=== PATIENT | female | born 1955 | race Caucasian/White ===

== ENCOUNTER → 2017-05-21 13:55 | Outpatient (CLI) | payer MEDICARE, MEDICAID, SELFPAY ==
[2017-05-21 14:24] LABS: Absolute Lymphocyte Count 1.56 X10^3/ul (0.83-4.51); Absolute Neutrophil Count 2.5 X10^3/uL (2.0-7.7); Basophil# 0.03 X10^3/uL; Basophil% 0.6 % (0-1); Eosinophil# 0.47 X10^3/uL; Eosinophils% 9.6 % (0-5); Hematocrit 38.3 % (37-47); Hemoglobin 13.1 g/dl (12.0-15.0); Lymphocyte # 1.56 X10^3/ul (4.0); Lymphocyte % 31.8 % (19-41); Mean Corp Hgb Conc 34.2 g/gl (32-36); Mean Corpuscular Volume 87.8 fL (81-99); Mean Platelet Vol. 9.4 fl (6.2-12.0); Monocyte# 0.29 X10^3/uL; Monocyte% 5.9 % (0-10); Neutrophil # 2.53 X10^3/uL (2.7-7.7); Neutrophil % 51.7 % (47-70); Platelet Count 284 K/mm3 (150-450); RBC Distribution Width CV 13.2 % (11.6-14.6); RBC Distribution Width SD 41.6 fl (35.1-43.9); Red Blood Count 4.36 M/mm3 (4.2-5.4); White Blood Count 4.9 K/mm3 (4.4-11.0)
[2017-05-21 14:26] LABS: POSITIVE COUNT NO; POSITIVE DIFFERENTIAL NO; POSITIVE MORPHOLOGY NO
[2017-05-21 15:10] LABS: Vitamin D,25 Hydroxy 6.6 ng/mL (19.95-100.01)
[2017-05-21 15:11] LABS: AST(SGOT) 15 U/L (15-37); Alanine Aminotransfer ALT/SGPT 19 U/L (13-56); Albumin, Serum 3.4 g/dL (3.2-5.0); Alkaline Phosphatase 97 U/L (45-117); Anion Gap 7 (5-15); BUN 10 mg/dL (7-18); BUN/Creat Ratio 15.5 RATIO (10-20); Calcium,Total 8.6 mg/dL (8.5-10.1); Chloride 108 mmol/L (98-107); Creatinine, Serum 0.64 mg/dL (0.55-1.02); EST Glomerular Filtration Rate 99 mL/min (>60); Est Glom Filt Rate - Afr Amer 120 mL/min (>60); Globulin 3.3 g/dL (2.2-4.2); Glucose 96 mg/dL (74-106); Potassium 3.6 mmol/L (3.5-5.1); Protein, Total 6.7 g/dL (6.4-8.2); Sodium Level 140 mmol/L (136-145); Thyroid Stim Hormone (TSH) 0.59 uIU/mL (0.358-3.74)
== END ==
PROVIDERS: PCP Family Medicine Geriatric Medicine; Visit Provider Family Medicine Geriatric Medicine
DX: R53.83 Other fatigue (principal); E55.9 Vitamin D deficiency, unspecified
CPT/HCPCS: 36415; 80053; 82306; 84443; 85025

== ENCOUNTER → 2017-10-24 14:09 | Outpatient (CLI) | payer MEDICARE, MEDICAID, SELFPAY ==
--- NOTE | 2017-10-24 14:15 | RAD_ITS ---
STUDY: X-RAY CHEST REASON FOR EXAM: Female, 62 years old. CHEST PAIN TECHNIQUE: Frontal and lateral views of the chest. COMPARISON: September 07, 2016 FINDINGS: Chronic appearing increased interstitial lung markings. There is no demonstrated pleural abnormality. Normal heart size. Normal mediastinum and helder. Normal visualized pulmonary arteries. There is atherosclerotic calcification of the aortic arch with tortuosity. There are diffuse degenerative changes of the visualized thoracic spine. There is degenerative osteoarthritis of the bilateral shoulders. There is no demonstrated abnormality of the visualized soft tissue structures of the upper abdomen. RAD/Chest PA and Lateral IMPRESSION: There are no acute findings. Electronically Signed: Darshan Harrington MD at 18:50 EDT , Service support ,
== END ==
PROVIDERS: Family Provider Family Medicine Geriatric Medicine; PCP Family Medicine Geriatric Medicine; Visit Provider Nurse Practitioner Acute Care
DX: J44.9 Chronic obstructive pulmonary disease, unspecified (principal)
CPT/HCPCS: 71046

== ENCOUNTER → 2017-11-15 09:39 | Outpatient (CLI) | payer MEDICARE, MEDICAID, SELFPAY ==
--- NOTE | 2017-11-15 09:40 | BI_ITS ---
MAMMOGRAPHY - BILATERAL DIAGNOSTIC 3-D MILA SYNTHESIS REASON FOR EXAM: Female, 62 years old. Right breast palpable lump x 2 weeks. PERTINENT HISTORY: Non-contributory. TECHNIQUE: Digital examination. Mediolateral oblique (MLO) and craniocaudad (CC) views of both breasts were obtained. 2-D mammograms and 3-D Mila synthesis of the breast (s) were performed. CAD was performed. COMPARISON: 09/12/2016 mammogram. FINDINGS: The breast composition is composed of scattered fibroglandular density. Right axilla shows a faint triangular radiopaque marker for the area of clinical concern where patient states she feels a palpable lump for 2 weeks but no underlying associated mammographic lesion is identified. No new asymmetric density, dominant mass, dense spiculated masses, abnormal clustered microcalcifications, architectural distortion, skin thickening or nipple retraction identified. Coarse benign-appearing calcifications. No new abnormality identified with tomosynthesis. There has been no significant change since the prior study. BI/DIAG MAMM W/CAD, BILAT IMPRESSION: No mammographic signs of malignancy. Routine yearly mammograms recommended. ASSESSMENT CATEGORY: BIRADS Category 0: Incomplete. Need additional imaging evaluation as above. A letter regarding these results will be sent to the patient by the facility within 30 days. FOLLOW UP RECOMMENDATION: Incomplete mammogram, need additional imaging with right breast targeted ultrasound imaging near area of clinical concern as described. Negative results should not deter biopsy as a palpable lesion should be followed on clinical grounds and biopsy performed if clinically persistent for 3 months or increasing size. Approximately 10% of breast cancers are not detected by mammography. A normal mammogram should not delay biopsy of a clinically suspicious abnormality. Electronically Signed: Adama Cesar, at 11:52 EDT Tel , Service support ,
--- NOTE | 2017-11-15 09:42 | US_ITS ---
STUDY: ULTRASOUND BREAST - RIGHT REASON FOR EXAM: Female, 62 years old. Right breast palpable lump. Right diagnostic mammogram today. TECHNIQUE: Axial and longitudinal images of the RIGHT breast were performed with a high resolution ultrasound transducer. COMPARISON: No prior right breast ultrasound imaging available. Correlation same day 11/15/2017 and 09/12/2016 mammograms. FINDINGS: RIGHT Breast: No ultrasound abnormality is identified. No hypoechoic, heterogeneous or hyperechoic lesion identified. US/Breast Limited Unilateral IMPRESSION: Negative right breast targeted ultrasound study. ASSESSMENT CATEGORY: BIRADS Category 2: Benign. A letter regarding these results will be sent to the patient by the facility within 30 days. FOLLOW UP RECOMMENDATION: Yearly follow up mammogram recommended. (A) Negative results should not deter biopsy as a palpable lesion should be followed on clinical grounds and biopsy performed if clinically persistent for 3 months or increasing size. Approximately 10% of breast cancers are not detected by mammography. A normal mammogram should not delay biopsy of a clinically suspicious abnormality. Electronically Signed: Adama Guerrero, at 11:19 EDT Tel , Service support ,
== END ==
PROVIDERS: Family Provider Family Medicine Geriatric Medicine; PCP Family Medicine Geriatric Medicine; Visit Provider Family Medicine Geriatric Medicine
DX: R92.8 Other abnormal and inconclusive findings on diagnostic imaging of breast (principal); N63.31 Unspecified lump in axillary tail of the right breast
CPT/HCPCS: 76642; 77062; 77066; G0279

== ENCOUNTER → 2017-11-21 13:50 | Outpatient (CLI) | payer MEDICARE, MEDICAID, SELFPAY ==
[2017-11-21 16:25] LABS: AST(SGOT) 17 U/L (15-37); Absolute Lymphocyte Count 1.95 X10^3/ul (0.83-4.51); Absolute Neutrophil Count 3.6 X10^3/uL (2.0-7.7); Alanine Aminotransfer ALT/SGPT 19 U/L (13-56); Albumin, Serum 3.7 g/dL (3.2-5.0); Alkaline Phosphatase 100 U/L (45-117); Anion Gap 7 (5-15); BUN 8 mg/dL (7-18); Basophil# 0.04 X10^3/uL; Basophil% 0.6 % (0-1); Calcium,Total 9.1 mg/dL (8.5-10.1); Chloride 108 mmol/L (98-107); Creatinine, Serum 0.88 mg/dL (0.55-1.02); EST Glomerular Filtration Rate 69 mL/min (>60); Eosinophil# 0.54 X10^3/uL; Eosinophils% 8.4 % (0-5); Est Glom Filt Rate - Afr Amer 83 mL/min (>60); Globulin 3.6 g/dL (2.2-4.2); Glucose 98 mg/dL (74-106); Hematocrit 41.8 % (37-47); Hemoglobin 13.7 g/dl (12.0-15.0); Lymphocyte # 1.95 X10^3/ul (4.0); Lymphocyte % 30.2 % (19-41); Mean Corp Hgb Conc 32.8 g/gl (32-36); Mean Corpuscular Hgb 28.8 pg (27.0-32.0); Mean Platelet Vol. 10.1 fl (6.2-12.0); Monocyte# 0.37 X10^3/uL; Monocyte% 5.7 % (0-10); Neutrophil # 3.55 X10^3/uL (2.7-7.7); Neutrophil % 54.9 % (47-70); POSITIVE COUNT NO; POSITIVE DIFFERENTIAL NO; POSITIVE MORPHOLOGY NO; Platelet Count 280 K/mm3 (150-450); Potassium 4.1 mmol/L (3.5-5.1); Protein, Total 7.3 g/dL (6.4-8.2); RBC Distribution Width SD 44.9 fl (35.1-43.9); Red Blood Count 4.75 M/mm3 (4.2-5.4); Sodium Level 141 mmol/L (136-145); Thyroid Stim Hormone (TSH) 1.03 uIU/mL (0.358-3.74); White Blood Count 6.5 K/mm3 (4.4-11.0)
[2017-11-23 11:20] LABS: Hep C Antibodies <0.1 s/co ratio (0.0-0.9)
== END ==
PROVIDERS: Family Provider Family Medicine Geriatric Medicine; PCP Family Medicine Geriatric Medicine; Visit Provider Family Medicine Geriatric Medicine
DX: R53.83 Other fatigue (principal); Z13.89 Encounter for screening for other disorder
CPT/HCPCS: 36415; 80053; 84443; 85025; 86803

== ENCOUNTER → 2017-11-30 17:25 | Outpatient (CLI) | payer MEDICARE, MEDICAID, SELFPAY | PROVIDERS: Family Provider Family Medicine Geriatric Medicine; PCP Family Medicine Geriatric Medicine; Visit Provider Family Medicine Geriatric Medicine | DX: Z87.891 Personal history of nicotine dependence (principal) | CPT/HCPCS: G0297 ==

== ENCOUNTER → 2018-01-04 09:45 | Outpatient (CLI) | payer MEDICARE, MEDICAID, SELFPAY ==
--- NOTE | 2018-01-04 09:50 | EKG12_ITS ---
Test Reason : BACK PAIN Blood Pressure : / mmHG Vent. Rate : 061 BPM Atrial Rate : 061 BPM P-R Int : 132 ms QRS Dur : 076 ms QT Int : 412 ms P-R-T Axes : 072 071 061 degrees QTc Int : 414 ms Normal sinus rhythm Normal ECG Confirmed by MAC MENDEZ, MYNOR ([id number]), photo editor CONCHA ROMERO ([id number]) on 01/07/2018 2:56:25 PM Referred By: Jose Edwards Confirmed By:MYNOR WATTS MD
== END ==
PROVIDERS: Family Provider Family Medicine Geriatric Medicine; PCP Family Medicine Geriatric Medicine; Referring Provider Family Medicine Geriatric Medicine; Visit Provider Family Medicine Geriatric Medicine
DX: R07.9 Chest pain, unspecified (principal)
CPT/HCPCS: 93005

== ENCOUNTER → 2018-01-15 10:03 | Outpatient (CLI) | payer MEDICARE, MEDICAID, SELFPAY ==
--- NOTE | 2018-01-15 14:08 | PFT ---
INTRODUCTION: The patient is a 62-year-old female that presents for pulmonary function testing secondary to a diagnosis of COPD. Respiratory therapy reports good patient effort. Bronchodilators were used during testing. INTERPRETATION: Forced expiration spirometry demonstrates the presence of a severe large airways obstructive ventilatory defect. There was no significant response to aerosolized bronchodilators. Spirograms are of good quality and do not plateau indicating slow emptying of the lungs. Body plethysmography was performed and reveals an elevated RV to 147% of predicted, indicative of underlying air trapping. Diffusing capacity by single breath CO is severely reduced at 32% of predicted. When compared to previous pulmonary function studies completed in 2016, there has been a 21% reduction in FEV1, worsening air-trapping and a 26% reduction in DLCO. 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 There has been worsening in the patient's PFTs since they were last completed in 2016, as noted above.
== END ==
PROVIDERS: Family Provider Family Medicine Geriatric Medicine; PCP Family Medicine Geriatric Medicine; Visit Provider Nurse Practitioner Acute Care
DX: J44.9 Chronic obstructive pulmonary disease, unspecified (principal)
CPT/HCPCS: 94060; 94726; 94729

== ENCOUNTER → 2018-01-18 12:26 | Outpatient (CLI) | payer MEDICARE, MEDICAID, SELFPAY ==
[2018-01-18 12:30] VITALS: PULSE 66; PULSE 72; PULSE 74; PULSE 78; PULSE 79; O2SAT 96; O2SAT 97; O2SAT 98
--- NOTE | 2018-01-19 08:13 | PCM.PSN.6M ---
PSN 6 Minute Walk Test - 6 Minute Walk Test 6 Minute Walk Test: 6 Minute Walk Test PSN:6-Minute Walk Test Start: 01/18/18 12:54 Freq: Status: Active Protocol: RESP.6MINW Document 01/18/18 12:30 EW (Rec: 01/18/18 13:00 EW [id number]) 6 Minute Walk Test Date Performed 01/18/18 Time Performed 12:30 Height 5 ft 4 in Weight: 145 lb Weight in Pounds 145.[address]: Cathie De Jesus Assistive device used: None Pre-test Oxygen Delivery Method Room Air Pulse Ox (%) 98 Pulse Rate (60-100 beats/min) 66 Dyspnea Conor Scale (0-10) 1 Exertion Conor Scale (6-20) 6 1st minute Oxygen Delivery Method Room Air Pulse Ox (%) 97 Pulse Rate (60-100 beats/min) 74 2nd minute Oxygen Delivery Method Room Air Pulse Ox (%) 96 Pulse Rate (60-100 beats/min) 74 3rd minute Oxygen Delivery Method Room Air Pulse Ox (%) 98 Pulse Rate (60-100 beats/min) 72 4th minute Oxygen Delivery Method Room Air Pulse Ox (%) 98 Pulse Rate (60-100 beats/min) 72 5th minute Oxygen Delivery Method Room Air Pulse Ox (%) 97 Pulse Rate (60-100 beats/min) 79 6th minute Oxygen Delivery Method Room Air Pulse Ox (%) 97 Pulse Rate (60-100 beats/min) 78 Post-test Oxygen Delivery Method Room Air Pulse Ox (%) 98 Pulse Rate (60-100 beats/min) 72 Dyspnea Conor Scale (0-10) 3 Exertion Conor Scale (6-20) 12 Full Laps Walked 18 Partial Lap, Number of Tiles Walked 20 Total Distance Walked (ft) 1082 - Interpretation Interpretation: The patient ambulated 1082 feet over the course of 6 minutes beginning on room air without assistive devices or breaks. Pretesting oxygen saturation was noted to be 98% on room air. With ambulation, the sree oxygen saturation was 96%. There was no significant exertional oxygen desaturation. - Recommendations Recommendations: There is no indication for the use of supplemental oxygen at this time.
== END ==
PROVIDERS: Family Provider Family Medicine Geriatric Medicine; PCP Family Medicine Geriatric Medicine; Referring Provider Nurse Practitioner Acute Care; Visit Provider Nurse Practitioner Acute Care
DX: J44.9 Chronic obstructive pulmonary disease, unspecified (principal)
CPT/HCPCS: 94618

== ENCOUNTER → 2018-02-25 11:25 | Outpatient (CLI) | payer MEDICARE, MEDICAID, SELFPAY ==
[2018-02-25 11:27] VITALS: BMI 26.9
--- NOTE | 2018-02-25 11:28 | RAD_ITS ---
STUDY: X-RAY CHEST REASON FOR EXAM: Female, 63 years old. Cough. TECHNIQUE: PA and lateral views of the chest. COMPARISON: PA and lateral chest x-ray October 24, 2017. CT chest/thorax done December 04, 2017 was not available for comparison, but report for this study was reviewed. FINDINGS: On the lateral view, there is spiculated appearing 1.5-2 cm density overlapping the lung bases at the level of the T10-11 interspace that is not clearly seen on the frontal view. There is no demonstrated pleural abnormality. Normal size heart. Normal mediastinum and helder. Normal visualized pulmonary arteries. There is stable atherosclerotic calcification of the aortic arch. There is a stable mild dextroscoliosis of the thoracic spine. Normal visualized ribs, clavicles, and shoulders. There is no demonstrated abnormality of the visualized soft tissue structures of the upper abdomen. RAD/Chest PA and Lateral IMPRESSION: Question of spiculated nodule versus focal posterior basilar subsegmental atelectasis or scarring. Comparison reading with CT chest could be made when that study becomes available. Electronically Signed: Oniel Quevedo MD at 15:50 EST , Service support ,
== END ==
PROVIDERS: Family Provider Family Medicine Geriatric Medicine; PCP Family Medicine Geriatric Medicine; Referring Provider Physician Assistant; Visit Provider Physician Assistant
DX: R05 Cough (principal)
CPT/HCPCS: 71046

== ENCOUNTER → 2018-03-22 20:15 | Outpatient (CLI) | payer MEDICARE, MEDICAID, SELFPAY ==
[2018-03-22] MEDS: Zolpidem Tartrate 5 MG Tablet PO (22:05)
--- OUTSIDE RECORDS SUMMARY | 2018-06-26 07:47 | XMS RPT_ITS ---
:1955 Author Organization OHIP Support Name Relationship Address Phone SANDY STEFANI Unavailable [address] + [place] [address] D Unavailable Unavailable Unavailable GONZALEZ, MAC Unavailable [address] [place] [address] CREMER, STEFANI Unavailable [address] + [place] [address] D Unavailable Unavailable Unavailable GONZALEZ, MAC Unavailable [address] [place] [address] CREMER, STEFANI Unavailable [address] + [place] [address] D Unavailable Unavailable Unavailable GONZALEZ, MAC Unavailable [address] [place] [address] CREMER, STEFANI Unavailable [address] + [place] [address] D Unavailable Unavailable Unavailable GONZALEZ, MAC Unavailable [address] [place] [address] CREMER, STEFANI Unavailable [address] + [place] [address] D Unavailable Unavailable Unavailable GONZALEZ, MAC Unavailable [address] [place] [address] CREMER, STEFANI Unavailable [address] + [place] [address] D Unavailable Unavailable Unavailable GONZALEZ, MAC Unavailable [address] [place] [address] CREMER, STEFANI Unavailable [address] + [place] [address] D Unavailable Unavailable Unavailable GONZALEZ, MAC Unavailable [address] [place] [address] CREMER, STEFANI Unavailable [address] + [place] [address] D Unavailable Unavailable Unavailable GONZALEZ, MAC Unavailable [address] [place] [address] CREMER, STEFANI Unavailable [address] + [place] [address] D Unavailable Unavailable Unavailable GONZALEZ, MAC Unavailable [address] [place] [address] CREMER, STEFANI Unavailable [address] + [place] [address] D Unavailable Unavailable Unavailable GONZALEZ, MAC Unavailable [address] [place] [address] CREMER, STEFANI Unavailable [address] + [place] [address] D Unavailable Unavailable Unavailable GONZALEZ, MAC Unavailable [address] [place] [address] CREMER, STEFANI Unavailable [address] + [place] [address] D Unavailable Unavailable Unavailable GONZALEZ, MAC Unavailable [address] [place] [address] CREMER, STEFANI Unavailable [address] + [place] [address] D Unavailable Unavailable Unavailable GOZNALEZ, MAC Unavailable [address] [place] [address] CREMER, STEFANI Unavailable [address] + [place] [address] D Unavailable Unavailable Unavailable GONZALEZ, MAC Unavailable [address] [place] [address] CREMER, STEFANI Unavailable [address] + [place] [address] D Unavailable Unavailable Unavailable GONZALEZ, MAC Unavailable [address] [place] [address] CREMER, STEFANI Unavailable [address] + [place] [address] D Unavailable Unavailable Unavailable GONZALEZ, MAC Unavailable [address] [place] [address] CREMER, STEFANI Unavailable [address] + [place] [address] D Unavailable Unavailable Unavailable GONZALEZ, MAC Unavailable [address] [place] [address] CREMER, STEFANI Unavailable [address] + [place] [address] D Unavailable Unavailable Unavailable GONZALEZ, MAC Unavailable [address] [place] [address] CREMER, STEFANI Unavailable [address] + [place] [address] D Unavailable Unavailable Unavailable GONZALEZ, MAC Unavailable [address] [place] [address] CREMER, STEFANI Unavailable [address] + [place] [address] D Unavailable Unavailable Unavailable GONZALEZ, MAC Unavailable [address] [place] [address] Care Team Providers Name Role Phone Anthony Jalloh D.O. Attending Unavailable Cathie De Jesus Referring Unavailable Cathie De Jesus Attending Unavailable Jerry, Jose Chi Referring Unavailable Jerry, Jose Chi Attending Unavailable Kristen Marie Attending Unavailable Cathie De Jesus Attending Unavailable Jerry, Jose Chi Referring Unavailable Cathie De Jesus Attending Unavailable Jerry, Jose Chi Referring Unavailable Cathie De Jesus Attending Unavailable Cathie De Jesus Referring Unavailable Jerry, Jose Chi Primary Care Unavailable Jerry, Jose Chi Attending Unavailable Jerry, Jose Chi Primary Care Unavailable Jerry, Jose Chi Attending Unavailable Jerry, Jose Chi Primary Care Unavailable Jerry, Jose Chi Attending Unavailable Jerry, Jose Chi Referring Unavailable Jerry, Jose Chi Primary Care Unavailable Jerry, Jose Chi Attending Unavailable Jerry, Jose Chi Referring Unavailable Jerry, Jose Chi Primary Care Unavailable Cathie De Jesus Attending Unavailable Jerry, Jose Chi Primary Care Unavailable Cathie De Jesus Attending Unavailable Cathie De Jesus Referring Unavailable Jerry, Jose Chi Primary Care Unavailable Cathie De Jesus Attending Unavailable Jerry, Jose Chi Referring Unavailable Anthony Jalloh D.O. Attending Unavailable Cathie De Jesus Referring Unavailable Khai Watts Attending Unavailable Jerry, Jose Chi Referring Unavailable Brigitte Jimenez.OMax Attending Unavailable Jerry, Jose Chi Referring Unavailable Cathie De Jesus Attending Unavailable Jerry, Jose Chi Primary Care Unavailable Catracho Clifton Attending Unavailable Jerry, Jose Chi Referring Unavailable Catracho Clifton Attending Unavailable Catracho Clifton Referring Unavailable Jerry, Jose Chi Primary Care Unavailable PROBLEMS PROBLEMS DATE TYPE CONDITION / CODE ATTENDING STATUS SOURCE 04/10/2018 Unknown G47.33 - De Jesus, Active [place] Obstructive sleep [facility] apnea (adult) Hospital (pediatric) / Repository G47.33(ICD-10) 02/25/2018 Unknown R05 - Cough / Catracho Clifton Active [place] R05(ICD-10) [facility] Hospital Repository 02/04/2018 Unknown Z23 - Encounter for Anthony Jalloh, Active [place] immunization / D.O. [facility] Z23(ICD-10) Hospital Repository 03/22/2018 Unknown J44.9 - Chronic Anthony Jalloh, Active [place] obstructive D.O. [facility] pulmonary disease, Hospital unspecified / Repository J44.9(ICD-10) 01/18/2018 Unknown J47.9 - De Jesus, Active [place] Bronchiectasis, [facility] uncomplicated / Hospital J47.9(ICD-10) Repository 02/01/2018 Unknown R07.9 - Chest pain, Khai Watts Active [place] unspecified / Community R07.9(ICD-10) Hospital Repository 11/28/2017 Unknown R53.83 - Other Jerry, Jose Chi Active [place] fatigue / Community R53.83(ICD-10) Hospital Repository 11/28/2017 Unknown R92.8 - Other Jerry, Jose Chi Active [place] abnormal and Community inconclusive Hospital findings on Repository diagnostic imaging of breast / R92.8(ICD-10) 05/21/2017 Unknown E55.9 - Vitamin D Jerry, Jose Chi Active [place] deficiency, Community unspecified / Hospital E55.9(ICD-10) Repository PROCEDURES PROCEDURES No Procedure Records FoundRESULTS RESULTS PULMONARY VISIT REPORT Observed: 04/04/2018 Status: F Source: [place] 10:35 AM [facility] [place] [address] [place] [address] OFFICE VISIT Date of Service: 04/04/18 MR#: [id number] Acct: [id number] Name: TARSHA GONZALEZ Rep #: [id number] : 1955 Provider: Cathie De Jesus Age/Sex: 63/F Location: [facility] [place] Status: Signed Assessment AND Plan 1. Stage 2 moderate COPD by GOLD classification J44.9 Plan Improving. Complete antibiotic and prednisone as prescribed. No change in maintenance medications. No additional testing at this time. Keep previously scheduled routine follow-up. Begin pulmonary rehab. Contact the office with any new or worsening symptoms in the meantime. Orders Referrals: 2. PHILIP (obstructive sleep apnea) G47.33 Plan New. Agreeable to initiating Pap therapy. We will begin BiPAP 13/7 centimeters of water. She has been advised to contact the office with any difficulty acclimating to the device. Initially goal should be that she wear the device at least 4 hours nightly, ultimately she should wear the device any time spent sleeping. HPI f/u after acute: Chief Complaint: Shortness of breath HPI Comments Details: This patient presents to the office today to follow-up after recently being started on doxycycline and prednisone for an acute exacerbation of her COPD. She is ambulatory, currently on room air and accompanied today by her daughter. She reports that her symptoms are significantly improved but not 100% resolved. She states that her shortness of breath, wheezing and cough have improved. The cough is less frequent but she still is able to expectorate small amount of brown sputum. She is using a Mucinex, which has been helpful in alleviating her chest congestion and allowing her to expectorate sputum. She denies any fever, chills or body aches. She is not experience any hemoptysis. She denies any chest pain or palpitations. She is compliant with Brio daily, rinses her mouth out after each use. She denies any medication side effects such as sore throat or thrush. She is also compliant with improves daily. She has been using her albuterol rescue inhaler or albuterol nebulizer 4-6 times daily, she admits that prior to starting the doxycycline and prednisone she was using the albuterol every 2 hours. Reviewed recent titration study with the patient, she is agreeable to initiate Pap therapy. Intake Vital Signs04/04/18 Height 5 ft 3 in 04/04/18 Weight: 155 lb 04/04/18 Body Mass Index (BMI) 27.4 Intake Visit Reasons: f/u after acute Accompanied by: Daughter Allergies codeine Allergy (Verified 04/04/18 09:14) Itching morphine Allergy (Verified 04/04/18 09:14) Itching Medications Clopidogrel Bisulfate [Plavix] 75 mg PO DAILY 10/23/15 [History Confirmed 04/04/18] fluticasone 200 mcg-vilanterol 25 mcg/dose powder for inhalation 1 inh INHALATION QDAY 03/12/17 [History Confirmed 04/04/18] albuterol sulfate 2.5 mg/3 mL (0.083 %) solution for nebulization 2.5 mg INHALATION Q4H PRN #120 vial 10/24/17 [Rx Confirmed 04/04/18] albuterol sulfate HFA 90 mcg/actuation aerosol inhaler 1 - 2 puff INHALATION Q4H PRN PRN #1 inhaler 10/24/17 [Rx Confirmed 04/04/18] albuterol sulfate HFA 90 mcg/actuation aerosol inhaler 1 puff INHALATION Q6H PRN 02/25/18 [History Confirmed 04/04/18] atorvastatin 80 mg tablet PO 90 Days #90 tab 02/25/18 [History Confirmed 04/04/18] benzonatate 200 mg capsule 200 mg PO TID PRN #20 cap 02/25/18 [Rx Confirmed 04/04/18] guaifenesin ER 1,200 mg tablet, extended release 12 hr 1,200 mg PO Q12H 02/25/18 [History Confirmed 04/04/18] tiotropium bromide 18 mcg capsule with inhalation device INHALATION 30 Days #30 inh 02/25/18 [History Confirmed 04/04/18] venlafaxine 75 mg tablet PO 30 Days #60 tab 02/25/18 [History Confirmed 04/04/18] doxycycline hyclate 100 mg tablet 100 mg PO BID #20 tab 04/01/18 [Rx Confirmed 04/04/18] prednisone 10 mg tablet 10 mg PO QDAY #30 tab 04/01/18 [Rx Confirmed 04/04/18] PFSH Medical History Atherosclerotic heart disease of [place] coronary artery without angina pectoris (Chronic) COPD (chronic obstructive pulmonary disease) (Chronic) Cardiac murmur, unspecified (Chronic) Central sleep apnea (Chronic) Chest pain, unspecified (Chronic) TORREZ (dyspnea on exertion) (Chronic) Hyperlipidemia (Chronic) Nicotine dependence in remission (Chronic) PHILIP (obstructive sleep apnea) (Chronic) Obesity (Chronic) Peripheral vascular disease (Chronic) Urinary frequency (Chronic) UTI (urinary tract infection) (Resolved) Surgical History H/O: hysterectomy (Resolved) S/P surgical manipulation of ankle joint (Resolved) Family History Mother Cancer Lung CA Father Emphysema Chronic Bronchitis, in 80s. Sister Diabetes CAD (coronary artery disease) Sister Heart disease Brother Respiratory abnormalities Social History Smoking Status: Former smoker second hand exposure: No alcohol intake: never substance use type: does not use what type of physical activity do you participate in: none FEV1% FEV1%: 49 Review of Systems Const CONSTITUTIONAL: Positive fatigue; negative anorexia, body ache, chills, daytime sleepiness, fever(s), night sweats, oral thrush, stops breathing during sleep, weight loss, sleeping in chair, weight loss, weight gain, frequent colds, seasonal allergies, other, headache(s) or orthopnea EETM Ear Nose Throat Mouth: Positive hearing normal; negative hard of hearing, hoarseness, dry mouth in morning, change in vision, itchy eyes, eye pain, swallowing Difficulty, ear pain, nose bleed, headache(s), mouth pain, nasal congestion, nasal discharge, post nasal drip, sinus pain, sinus pressure, sore throat or other Cardio Cardiovascular: Negative chest pain, chest pain at rest, chest pain with activity, irregular heart rhythm, edema, shortness of breath when lying down, palpitations, murmur or other Resp Respiratory: Positive as per HPI, shortness of breath (improved) shortness of breath: Positive with activity and cough cough: Positive productive color: Positive thick and brown; negative pain with cough, wheezing, chest congestion, chest tightness, pain on inspiration, inhalers, increase use of rescue inhalers, snoring, apnea or other Gastro Gastrointestional: Positive change in appetite (increase); negative bloody stools, difficulty swallowing, reflux, hematemesis, melena stool, loose stool, constipation or other Genitourinary: Negative blood in urine, nocturia, pain with urination or other Musc Musculoskeletal: Negative body pain, back pain, neck pain or other Skin/Breast Skin/Breast: Negative dry skin, itching, rash, unusual bruising, breast lump or other Neuro Neurological: Negative restless legs, confusion, weakness or other Psych Psychocological: Negative abnormal sleep pattern, anxiety, thoughts of hurting self/others, hopelessness or other Lymph Lymphatic: Negative easy bleeding, easy bruising, swollen lymph nodes or other Exam Const Constitutional: Positive conversant, cooperative, in no acute respiratory distress, healthy appearing, well developed, well nourished and good hygiene Head Head: Positive normocephalic and atraumatic; negative cyanosis of lips/distal nose Eyes Eye: Positive clear conjunctiva; negative nystagmus or scleral abnormality Ears Ear: Positive hearing normal and external ears normal; negative hard of hearing Nose Nose: Positive external nose normal and no nasal discharge; negative epistaxis Mouth Mouth: Positive oral mucosae normal, no lesions, dentures and posterior oropharynx is adequate; negative post nasal drip, malodorous breath or oral thrush present Mallampati Score: I: Mallampati Score Neck Neck: Positive normal visual inspection, full ROM and trachea midline; negative lymphadenopathy, JVD or tender Chest Wall Chest: Positive symmetric chest movement and increased A/P diameter Resp lung sounds: Positive diminished, wheezes, wheeze present on forced exhalation, normal expiratory time and normal respiratory effort; negative rhonchi, rales or dullness to percussion Cardio Cardiac: Positive regular rate, regular rhythm, S1 normal and S2 normal; negative murmur GI GI: Positive normal to inspection; negative distended Genitourinary: Positive deferred Musc Musculoskeletal: Positive steady gait and ROM normal; negative kyphosis or scoliosis Skin Pulmonary Skin Exam: Positive intact; negative rash Pulses Pulse: Yes pulses normal x4 extremities Extremities Extremities: Yes capillary refill normal, No cyanosis, No edema, No clubbing Neuro Neurologic: Yes conversant, Yes no focal neuro deficits, Yes normal concentration, Yes understands questions, Yes cooperative, Yes normal cognition, Yes normal coordination, No tremor Lymph Lymphatic: No lymphadenopathy, No tenderness, No cervical adenopathy Psych Appearance: Positive grossly normal, eye contact and well kempt Mental Status: Positive mental status grossly normal Mood: Positive congruent mood Affect: Positive normal affect Coding Level of Care Code Off vis,est,level 4 Diagnoses Stage 2 moderate COPD by GOLD classification J44.9 PHILIP (obstructive sleep apnea) G47.33 04/04/18 1035 <Electronically signed by Cathie De Jesus [employer]-C> Date Cathie De Jesus NP-C Cosigner Signature: Date (if applicable) CC: Jose Edwards MD 6 MINUTE WALK TEST Observed: 02/26/2018 Status: F Source: [place] 12:37 PM [facility] [place] [facility] [address] [place] [id number] MR#: [id number] Acct: [id number] Name: TARSHA GONZALEZ Rep #: [id number] : 1955 62 From: Anthony Jalloh DO Referring Dr: Cathie De Jesus NP Date: Ordering Dr: Sex: F C Location: PSN PSN 6 Minute Walk Test - 6 Minute Walk Test 6 Minute Walk Test: 6 Minute Walk Test PSN:6-Minute Walk Test Start: 01/18/18 12:54 Freq: Status: Active Protocol: RESP.6MINW Document 01/18/18 12:30 EW (Rec: 01/18/18 13:00 EW [id number]) 6 Minute Walk Test Date Performed 01/18/18 Time Performed 12:30 Height 5 ft 4 in Weight: 145 lb Weight in Pounds 145.[address]: Cathie De Jesus Assistive device used: None Pre-test Oxygen Delivery Method Room Air Pulse Ox (%) 98 Pulse Rate (60-100 beats/min) 66 Dyspnea Conor Scale (0-10) 1 Exertion Conor Scale (6-20) 6 1st minute Oxygen Delivery Method Room Air Pulse Ox (%) 97 Pulse Rate (60-100 beats/min) 74 2nd minute Oxygen Delivery Method Room Air Pulse Ox (%) 96 Pulse Rate (60-100 beats/min) 74 3rd minute Oxygen Delivery Method Room Air Pulse Ox (%) 98 Pulse Rate (60-100 beats/min) 72 4th minute Oxygen Delivery Method Room Air Pulse Ox (%) 98 Pulse Rate (60-100 beats/min) 72 5th minute Oxygen Delivery Method Room Air Pulse Ox (%) 97 Pulse Rate (60-100 beats/min) 79 6th minute Oxygen Delivery Method Room Air Pulse Ox (%) 97 Pulse Rate (60-100 beats/min) 78 Post-test Oxygen Delivery Method Room Air Pulse Ox (%) 98 Pulse Rate (60-100 beats/min) 72 Dyspnea Conor Scale (0-10) 3 Exertion Conor Scale (6-20) 12 Full Laps Walked 18 Partial Lap, Number of Tiles Walked 20 Total Distance Walked (ft) 1082 - Interpretation Interpretation: The patient ambulated 1082 feet over the course of 6 minutes beginning on room air without assistive devices or breaks. Pretesting oxygen saturation was noted to be 98% on room air. With ambulation, the sree oxygen saturation was 96%. There was no significant exertional oxygen desaturation. - Recommendations Recommendations: There is no indication for the use of supplemental oxygen at this time. 02/26/18 1237 <Electronically signed by Anthony Jalloh DO> Date Anthony Jalloh DO CC: Date Dictated: 01/19/18812 Date Transcribed: 01/19/18812 Family Practitioner: DO Richmond Jimenez URGENT CARE VISIT Observed: 02/25/2018 Status: F Source: [place] REPORT 12:41 PM [facility] [address] [place] [address] [address] [place] [address] OFFICE VISIT Date of Service: 02/25/18 MR#: [id number] Acct: [id number] Name: TARSHA GONZALEZ Rep #: [id number] : 1955 Provider: Catracho POSADA Age/Sex: 63/F Location: [facility] [place] Status: Signed Intake Vital Signs02/25/18 Height 5 ft 3 in Intake Visit Reasons: CHEST CONGESTION Chief Complaint: Wheezing, cough Allergies codeine Allergy (Verified 02/25/18 11:27) Itching morphine Allergy (Verified 02/25/18 11:27) Itching Medications Clopidogrel Bisulfate [Plavix] 75 mg PO DAILY 10/23/15 [History Confirmed 02/25/18] fluticasone 200 mcg-vilanterol 25 mcg/dose powder for inhalation 1 inh INHALATION QDAY 03/12/17 [History Confirmed 02/25/18] albuterol sulfate 2.5 mg/3 mL (0.083 %) solution for nebulization 2.5 mg INHALATION Q4H PRN #120 vial 10/24/17 [Rx Confirmed 02/25/18] albuterol sulfate HFA 90 mcg/actuation aerosol inhaler 1 - 2 puff INHALATION Q4H PRN PRN #1 inhaler 10/24/17 [Rx Confirmed 02/25/18] albuterol sulfate HFA 90 mcg/actuation aerosol inhaler 1 puff INHALATION Q6H PRN 02/25/18 [History Confirmed 02/25/18] atorvastatin 80 mg tablet PO 90 Days #90 tab 02/25/18 [History Confirmed 02/25/18] benzonatate 200 mg capsule 200 mg PO TID PRN #20 cap 02/25/18 [Rx Confirmed 02/25/18] guaifenesin ER 1,200 mg tablet, extended release 12 hr 1,200 mg PO Q12H 02/25/18 [History Confirmed 02/25/18] prednisone 10 mg tablet 10 mg PO DAILY #30 tab 02/25/18 [Rx Confirmed 02/25/18] tiotropium bromide 18 mcg capsule with inhalation device INHALATION 30 Days #30 inh 02/25/18 [History Confirmed 02/25/18] venlafaxine 75 mg tablet PO 30 Days #60 tab 02/25/18 [History Confirmed 02/25/18] Nurse's Note: [facility] Medical History Atherosclerotic heart disease of [place] coronary artery without angina pectoris (Chronic) COPD (chronic obstructive pulmonary disease) (Chronic) Cardiac murmur, unspecified (Chronic) Central sleep apnea (Chronic) Chest pain, unspecified (Chronic) TORREZ (dyspnea on exertion) (Chronic) Hyperlipidemia (Chronic) Nicotine dependence in remission (Chronic) PHILIP (obstructive sleep apnea) (Chronic) Obesity (Chronic) Peripheral vascular disease (Chronic) Urinary frequency (Chronic) UTI (urinary tract infection) (Resolved) Surgical History H/O: hysterectomy (Resolved) S/P surgical manipulation of ankle joint (Resolved) Family History Mother Cancer Lung CA Father Emphysema Chronic Bronchitis, in 80s. Sister Diabetes CAD (coronary artery disease) Sister Heart disease Brother Respiratory abnormalities Social History Smoking Status: Former smoker second hand exposure: No alcohol intake: never substance use type: does not use what type of physical activity do you participate in: none HPI HPI Chief Complaint: Wheezing, cough Details: TARSHA GONZALEZ, is a 63 F who presents to the office today for evaluation due to recurring wheezing and cough. No complaints of fever, chills, sweats, rash, chest pains - though admits dyspnea on exertion which appears more prominent now compared to approximately 10-14 days ago. Patient and daughter both concerned due to after recently finishing azithromycin and prednisone taper that her symptoms slowly started to return. [id number] Mucinex has been tried to assist with symptoms, though patient notes this is only caused her to become more congested. Additionally, patient notes she has been using her albuterol metered-dose inhaler more frequently over the last week and a half noting it gives her minimal to no relief of symptoms; she notes her albuterol nebulizer at home gets her no relief. Daughter notes patient's pulse ox at home ranges from 88-90% on room air. Patient is currently followed by pulmonology for COPD, with findings on chest CT in November of this year which required a 6-month follow-up CT per radiologist recommendations. Daughter also notes she does have a history of PHILIP though has not been using her CPAP lately. ROS Const Constitutional: No other (ROS negative x10 other than as noted above) Exam Const General: cooperative, healthy appearing, no acute distress, comfortable Nutritional Appearance: average body habitus Orientation: alert, awake, oriented x3 HENMT Head: normal to inspection Ears: hearing grossly normal bilaterally, external ears normal, TM's normal bilaterally, EAC's normal Nose: external nose normal, nares normal (Though turbinates appear mildly edematous bilaterally), septum normal, no nasal discharge Face and sinus: normal facial exam, sinuses nontender, face symmetric Eyes General: appearance normal, both eyes and all related structures Neck Neck: normal visual inspection, full ROM, no lymphadenopathy, no meningeal signs, supple Neck mass: No Thyroid: thyroid normal Lymphatic: no lymphadenopathy noted Chest Chest palpation AND inspection: normal inspection of the chest Resp Effort AND Inspection: normal respiratory effort, able to speak in complete sentences, symmetric chest movement, no cough (No cough appreciated during today's exam) Auscultation: Bilateral: Diminished Lung Sounds, Diminished Base (With scant wheezes appreciated in BUL and LLL) Cardio Palpation: normal PMI Rate: regular rate Rhythm: regular rhythm Heart Sounds: S1 normal, S2 normal, no gallops, no murmurs, no rubs Pulses: radial pulses present GI Inspection: normal to inspection Palpation: soft, no hepatosplenomegaly Skin General: no rashes or lesions noted Neuro General: alert, awake, oriented x3, gait normal Cognition: normal cognition Speech: speech normal Gait: normal gait Motor: muscle tone normal throughout Sensory Exam: no sensory deficits noted Psych Appearance: grossly normal Mental Status: mental status grossly normal Mood: congruent mood Affect: normal affect Speech and Movement: speech and movement normal Attitude: cooperative Thought Process: normal Thought Content: normal Judgment: judgment good Assessment AND Plan Problems 1. Stage 2 moderate COPD by GOLD classification J44.9 Plan Reviewed today's chest x-ray with patient and daughter in office today, revealing no acute pathology per my review, pending radiologist interpretation at the time of this dictation. At patient's daughter's request, prednisone taper and benzonatate as prescribed today. Continue follow-up with pulmonology as previously arranged, PCP sooner should symptoms worsen or any other concerns develop. Patient and daughter state acknowledging understanding all the above. This note was generated with [employer] dictation software. It may contain incorrect words, spelling, and punctuation that were not noted in checking the note before signing. Orders Orders: Medications New: Coding Level of Care Code Off vis,est,level 4 Diagnoses Stage 2 moderate COPD by GOLD classification J44.9 Time Spent (min) 35 02/25/18 1241 <Electronically signed by Catracho POSADA> Date Catracho POSADA [facility] Signature: Date (if applicable) CC: CHEST PA AND LATERAL Observed: 02/25/2018 Status: F Source: [place] 11:28 AM [facility] [place] [facility] [address] [place] [address] Chest PA and Lateral MR#: [id number] Acct: [id number] Name: TARSHA GONZALEZ Rep #: [id number] : 1955 F 63 From: Jayden Quevedo MD PCP: Jerry MENDEZ,Jose Mccall Status: REG CLI Study: Chest PA and Lateral Date of Exam: 02/25/18 Exam# [id number] Ordering Dr: Catracho Clfiton STUDY: X-RAY CHEST REASON FOR EXAM: Female, 63 years old. Cough. TECHNIQUE: PA and lateral views of the chest. COMPARISON: PA and lateral chest x-ray October 24, 2017. CT chest/thorax done December 04, 2017 was not available for comparison, but report for this study was reviewed. FINDINGS: On the lateral view, there is spiculated appearing 1.5-2 cm density overlapping the lung bases at the level of the T10-11 interspace that is not clearly seen on the frontal view. There is no demonstrated pleural abnormality. Normal size heart. Normal mediastinum and helder. Normal visualized pulmonary arteries. There is stable atherosclerotic calcification of the aortic arch. There is a stable mild dextroscoliosis of the thoracic spine. Normal visualized ribs, clavicles, and shoulders. There is no demonstrated abnormality of the visualized soft tissue structures of the upper abdomen. RAD/Chest PA and Lateral IMPRESSION: Question of spiculated nodule versus focal posterior basilar subsegmental atelectasis or scarring. Comparison reading with CT chest could be made when that study becomes available. Electronically Signed: Oniel Quevedo MD at 15:50 EST , Service support , CC: Catracho POSADA; Jose Edwards MD Family Practitioner: Signed PULMONARY VISIT REPORT Observed: 02/04/2018 Status: F Source: [place] 1:29 PM [facility] [address] [place], [place] [address] OFFICE VISIT Date of Service: 02/04/18 MR#: [id number] Acct: [id number] Name: TARSHA GONZALEZ Rep #: [id number] : 1955 Provider: Anthnoy Jalloh D.O. Age/Sex: 63/F [facility] Status: Signed with Addenda ADDENDUM by Kristen Marie on 02/04/18 at 1329 OFFICE PROCEDURES Office Procedure Documentation entered by Kristen Marie 02/04/18 13:29: Office Meds Flucelvax Quad [id number] (PF) Performing Provider: Anthony Jalloh DO Administered by: Kristen Marie on 02/04/18 13:29 Dose Route Admin Location Lot Number Expiration Date NDC Ships Equipment Engineer 60 mcg IM L deltoid [id number] 09/07/18 19977-240-98 SEQIRUS 02/04/18 1329 <Electronically signed by Kristen Marie > Date Kristen Marie cc: Jose Edwards MD * Signed Assessment AND Plan 1. COPD (chronic obstructive pulmonary disease) J44.9 Plan The patient remained stable on her current inhaler regimen including Breo and Spiriva, which will be continued without change. Recommend repeating pulmonary function testing in the fall 2018. The patient will also be a candidate for repeat low- dose CT chest at that time as well. She will be provided with her annual influenza vaccination today. In addition, she will be referred to pulmonary rehabilitation. She has been advised to call this office with any worsening in her breathing quality and/or increased reliance on her short acting beta agonist. 2. PHILIP (obstructive sleep apnea) G47.33 Plan The patient plans to schedule a re-titration polysomnogram in the very near future. Once the results of testing are received, orders will be placed for her DME equipment. 3. Tobacco dependence in remission F17.201 Plan Ongoing tobacco cessation strongly encouraged. Plan Detail Other Orders Orders: Other Medications New: Flucelvax Quad 2248-4615 (PF) (flu vac qs 2018(4 yr60 mcg (0.5 mL) IM ONCE 1 mL 0RF NS Z23 up)CD(PF)) Follow Up 6 Months (DMB) HPI HPI Comments Details: The patient is a 63-year-old female who presents to the clinic today for a routine scheduled follow-up office visit. If you recall, I initially saw the patient in November 2016 when she was referred to me as a transfer of care from her previous pulmonary provider in [place]. The patient reported an extensive smoking history of 3 packs/day x 48 years. She quit smoking completely in 2012. She has known obstructive sleep apnea but was intolerant of the use of BiPAP and subsequently returned her equipment to her DME provider [facility]. She has since agreed to undergo a repeat titration study, which is yet to be scheduled. 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 There was notable worsening in the patient's PFTs when compared to December 2015 results. A 6-minute walk test was also completed at that time, which revealed no significant exertional oxygen desaturation. Low-dose CT chest of the lung completed in November 2017 did reveal 2 subcentimeter pulmonary nodules in the bases. Today, the patient reports overall stability in her breathing quality. She denies the presence of chest tightness, wheezing or cough. Her baseline exertional dyspnea is unchanged. She is currently utilizing her albuterol rescue inhaler on average every 2 weeks. She remains compliant with the use of Breo and Spiriva. She is interested in obtaining her annual influenza vaccination today. She denies fevers, chills or night sweats. She denies chest pain, dizziness or lightheadedness. 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083 %) solution for nebulization 2.5 mg INHALATION Q4H PRN #120 vial 10/24/17 [Rx Confirmed 02/04/18] albuterol sulfate HFA 90 mcg/actuation aerosol inhaler 1 - 2 puff INHALATION Q4H PRN PRN #1 inhaler 10/24/17 [Rx Confirmed 02/04/18] acapella #1 [id number] 01/18/18 [Rx Confirmed 02/04/18] guaifenesin ER 1,200 mg tablet, extended release 12 hr 1,200 mg PO Q12H #30 tab 01/18/18 [Rx Confirmed 02/04/18] nystatin 100,000 unit/mL oral suspension 5 ml MUCOUS MEMBRANE TID #250 ml 01/18/18 [Rx Confirmed 02/04/18] PFSH Medical History Atherosclerotic heart disease of [place] coronary artery without angina pectoris (Chronic) COPD (chronic obstructive pulmonary disease) (Chronic) Cardiac murmur, unspecified (Chronic) Central sleep apnea (Chronic) Chest pain, unspecified (Chronic) TORREZ (dyspnea on exertion) (Chronic) Hyperlipidemia (Chronic) Nicotine dependence in remission (Chronic) PHILIP (obstructive sleep apnea) (Chronic) Obesity (Chronic) Peripheral vascular disease (Chronic) Urinary frequency (Chronic) H/O: hysterectomy (Resolved) UTI (urinary tract infection) (Resolved) Surgical History S/P surgical manipulation of ankle joint (Resolved) Family History Mother Cancer Lung CA Father Emphysema Chronic Bronchitis, in 80s. Sister Diabetes CAD (coronary artery disease) Sister Heart disease Brother Respiratory abnormalities Social History Smoking Status: Former smoker second hand exposure: No alcohol intake: never substance use type: does not use what type of physical activity do you participate in: none Review of Systems Const CONSTITUTIONAL: Negative anorexia, body ache, chills, daytime sleepiness, fever(s), night sweats, oral thrush, stops breathing during sleep, weight loss, sleeping in chair, fatigue, weight loss, weight gain, frequent colds, seasonal allergies, other, headache(s) or orthopnea EETM Ear Nose Throat Mouth: Positive hearing normal; negative hard of hearing, hoarseness, dry mouth in morning, change in vision, itchy eyes, eye pain, swallowing Difficulty, ear pain, nose bleed, headache(s), mouth pain, nasal congestion, nasal discharge, post nasal drip, sinus pain, sinus pressure, sore throat or other Cardio Cardiovascular: Negative chest pain, chest pain at rest, chest pain with activity, irregular heart rhythm, edema, shortness of breath when lying down, palpitations, murmur or other Resp Respiratory: Positive as per HPI and apnea; negative shortness of breath, pain with cough, wheezing, chest congestion, cough, chest tightness, pain on inspiration, inhalers, increase use of rescue inhalers, snoring or other Gastro Gastrointestional: Negative bloody stools, change in appetite, difficulty swallowing, reflux, hematemesis, melena stool, loose stool, constipation or other Genitourinary: Negative blood in urine, nocturia, pain with urination or other Musc Musculoskeletal: Negative body pain, back pain, neck pain or other Skin/Breast Skin/Breast: Negative dry skin, itching, rash, unusual bruising, breast lump or other Neuro Neurological: Negative restless legs, confusion, weakness or other Psych Psychocological: Negative abnormal sleep pattern, anxiety, thoughts of hurting self/others, hopelessness or other Lymph Lymphatic: Negative easy bleeding, easy bruising, swollen lymph nodes or other Exam Const Constitutional: Positive conversant, cooperative, in no acute respiratory distress, well developed, well nourished and good hygiene Head Head: Positive normocephalic and atraumatic; negative cyanosis of lips/distal nose Eyes Eye: Positive clear conjunctiva; negative nystagmus or scleral abnormality Ears Ear: Positive hearing normal and external ears normal; negative hard of hearing Nose Nose: Positive external nose normal; negative epistaxis Mouth Mouth: Positive oral mucosae normal and posterior oropharynx is adequate; negative no lesions or post nasal drip Mallampati Score: II: Mallampati Score Neck Neck: Positive normal visual inspection and trachea midline; negative lymphadenopathy Chest Wall Chest: Positive symmetric chest movement Normal AP diameter. Resp lung sounds: Positive good air exchange; negative wheezes, rhonchi or rales Cardio Cardiac: Positive regular rate, regular rhythm, S1 normal and S2 normal; negative rub, gallop or murmur GI GI: Positive normal bowel sounds Soft without distention Genitourinary: Positive deferred Musc Musculoskeletal: Positive steady gait Skin Pulmonary Skin Exam: Positive intact; negative lesion, ulcers, dermal atrophy or rash Pulses Pulse: Yes Pedal pulses present: Extremities Extremities: No clubbing, No cyanosis, No edema Neuro Neurologic: Yes conversant, Yes no focal neuro deficits, Yes cooperative Lymph Lymphatic: No lymphadenopathy Psych Appearance: Positive grossly normal Mental Status: Positive mental status grossly normal Mood: Positive congruent mood Affect: Positive normal affect Coding Level of Care Code Off vis,est,level 3 Diagnoses COPD (chronic obstructive pulmonary disease) J44.9 PHILIP (obstructive sleep apnea) G47.33 Tobacco dependence in remission F17.201 02/04/18 1317 <Electronically signed by Anthony Jalloh DO> Date Anthony Jalloh DO Cosigner Signature: Date (if applicable) CC: Jose Edwards MD PULMONARY VISIT REPORT Observed: 01/18/2018 Status: F Source: [place] 3:45 PM [facility] [place] [address] [place] [address] OFFICE VISIT Date of Service: 01/18/18 MR#: [id number] Acct: [id number] Name: TARSHA GONZALEZ Rep #: [id number] : 1955 Provider: Cathie De Jesus Age/Sex: 62/F Location[facility] Status: Signed Assessment AND Plan 1. Bronchiectasis with acute lower respiratory infection J47.0 Plan New. Acapella device ordered. Keep previously scheduled follow-up. 2. PHILIP (obstructive sleep apnea) G47.33 Plan Patient realizes the impact of treating her sleep apnea on her respiratory failure and COPD. She is agreeable to a titration study and the reinstitution of Pap therapy. I will work closely with her to find a Pap pressure that is not only effective in managing her symptoms but that is tolerable which will lead to increased compliance. Titration study ordered, keep previously scheduled routine follow-up with Dr. Jalloh. Contact the office if any difficulties acclimating to Pap therapy. Orders Orders: 3. Stage 2 moderate COPD by GOLD classification J44.9 Plan Deteriorated. Showing some improvement on Z-Artem and prednisone. Continue prednisone taper. Continue maintenance medications. Keep previously scheduled follow-up. Influenza vaccine recommended when available. 4. Candidiasis of mouth B37.0 Plan New. Treating with nystatin 3 times daily. Keep previously scheduled follow-up. Personally reviewed inhaler technique to prevent recurrence of thrush. Plan Detail Other Orders Orders: Other Medications New: HPI not feeling well: Chief Complaint: Wheezing HPI Comments Details: This patient presents the office today to follow- up after recently being treated for an exacerbation of her COPD. She is ambulatory and currently on room air. She is accompanied today by her daughter who is a nurse. The patient reports that she began her Z-Artem on January 15, 2018 as well as a prednisone taper. She states that her symptoms have began to improve, the wheezing is not as intense in her shortness of breath is improving also. She continues to utilize her Ventolin rescue inhaler twice daily. She is compliant with Breo daily and in Honorio daily. She does report taking a drink of pop after using her Brio. She denies any medication side effects such as sore throat or thrush. She continues to have a cough that is productive of some sputum, she states that with the use of Mucinex she has been able to expectorate the sputum. It is thick, stringy and white. She denies any hemoptysis. She has not experienced any fever, chills or body aches. The patient does report that she has poor sleeping habits. She goes to bed late at night, wakes up several times nightly. She sleeps late into the day. She was previously diagnosed with obstructive sleep apnea but was unable to tolerate high pressures and secondary to low compliance rate the device was repossessed. Her daughter reports that her mother not only snores severely but the daughter has actually witnessed the mother having episodes of apnea. Intake Vital Signs01/18/18 Height 5 ft 3 in 01/18/18 Weight: 149 lb Intake Visit Reasons: not feeling well Accompanied by: Daughter Allergies codeine Allergy (Verified 01/18/18 08:39) Itching morphine Allergy (Verified 01/18/18 08:39) Itching Medications Clopidogrel Bisulfate [Plavix] 75 mg PO DAILY 10/23/15 [History Confirmed 01/18/18] fluticasone 200 mcg-vilanterol 25 mcg/dose powder for inhalation 1 inh INHALATION QDAY 03/12/17 [History Confirmed 01/18/18] phenazopyridine 100 mg tablet 100 mg PO TID 03/12/17 [History Confirmed 01/18/18] umeclidinium 62.5 mcg/actuation blister powder for inhalation 1 inh INHALATION QDAY #30 ea 08/06/17 [Rx Confirmed 01/18/18] albuterol sulfate 2.5 mg/3 mL (0.083 %) solution for nebulization 2.5 mg INHALATION Q4H PRN #120 vial 10/24/17 [Rx Confirmed 01/18/18] albuterol sulfate HFA 90 mcg/actuation aerosol inhaler 1 - 2 puff INHALATION Q4H PRN PRN #1 inhaler 10/24/17 [Rx Confirmed 01/18/18] azithromycin 250 mg tablet 250 mg PO QDAY #6 tab 01/15/18 [Rx Confirmed 01/18/18] prednisone 10 mg tablet 10 mg PO QDAY #30 tab 01/15/18 [Rx Confirmed 01/18/18] acapella #1 [id number] 01/18/18 [Rx Confirmed 01/18/18] guaifenesin ER 1,200 mg tablet, extended release 12 hr 1,200 mg PO Q12H #30 tab 01/18/18 [Rx Confirmed 01/18/18] nystatin 100,000 unit/mL oral suspension 5 ml MUCOUS MEMBRANE TID #250 ml 01/18/18 [Rx Confirmed 01/18/18] PFSH Medical History Atherosclerotic heart disease of [place] coronary artery without angina pectoris (Chronic) COPD (chronic obstructive pulmonary disease) (Chronic) Cardiac murmur, unspecified (Chronic) Central sleep apnea (Chronic) Chest pain, unspecified (Chronic) TORREZ (dyspnea on exertion) (Chronic) Hyperlipidemia (Chronic) Nicotine dependence in remission (Chronic) PHILIP (obstructive sleep apnea) (Chronic) Obesity (Chronic) Peripheral vascular disease (Chronic) Urinary frequency (Chronic) H/O: hysterectomy (Resolved) UTI (urinary tract infection) (Resolved) Surgical History S/P surgical manipulation of ankle joint (Resolved) Family History Mother Cancer Lung CA Father Emphysema Chronic Bronchitis, in 80s. Sister Diabetes CAD (coronary artery disease) Sister Heart disease Brother Respiratory abnormalities Social History Smoking Status: Former smoker second hand exposure: No alcohol intake: never substance use type: does not use what type of physical activity do you participate in: none Review of Systems Const CONSTITUTIONAL: Positive fatigue; negative anorexia, body ache, chills, daytime sleepiness, fever(s), night sweats, oral thrush, stops breathing during sleep, weight loss, sleeping in chair, weight loss, weight gain, frequent colds, seasonal allergies, other, headache(s) or orthopnea EETM Ear Nose Throat Mouth: Positive hearing normal; negative hard of hearing, hoarseness, dry mouth in morning, change in vision, itchy eyes, eye pain, swallowing Difficulty, ear pain, nose bleed, headache(s), mouth pain, nasal congestion, nasal discharge, post nasal drip, sinus pain, sinus pressure, sore throat or other Cardio Cardiovascular: Negative chest pain, chest pain at rest, chest pain with activity, irregular heart rhythm, edema, shortness of breath when lying down, palpitations, murmur or other Resp Respiratory: Positive as per HPI and wheezing; negative shortness of breath, pain with cough, chest congestion, cough, chest tightness, pain on inspiration, inhalers, increase use of rescue inhalers, snoring, apnea or other Gastro Gastrointestional: Positive loose stool (X2 days of starting the zpak); negative bloody stools, change in appetite, difficulty swallowing, reflux, hematemesis, melena stool, constipation or other Genitourinary: Negative blood in urine, nocturia, pain with urination or other Musc Musculoskeletal: Negative body pain, back pain, neck pain or other Skin/Breast Skin/Breast: Negative dry skin, itching, rash, unusual bruising, breast lump or other Neuro Neurological: Negative restless legs, confusion, weakness or other Psych Psychocological: Positive abnormal sleep pattern (due to prednisone); negative anxiety, thoughts of hurting self/others, hopelessness or other Lymph Lymphatic: Negative easy bleeding, easy bruising, swollen lymph nodes or other Exam Const Constitutional: Positive conversant, cooperative, in no acute respiratory distress, healthy appearing, well developed, well nourished and good hygiene Head Head: Positive normocephalic and atraumatic; negative cyanosis of lips/distal nose Eyes Eye: Positive clear conjunctiva; negative nystagmus or scleral abnormality Ears Ear: Positive hearing normal and external ears normal; negative hard of hearing Nose Nose: Positive external nose normal and no nasal discharge; negative epistaxis Mouth Mouth: Positive oral mucosae normal, no lesions, oral thrush present, dentures and posterior oropharynx is adequate; negative post nasal drip or malodorous breath Mallampati Score: II: Mallampati Score Neck Neck: Positive normal visual inspection, full ROM and trachea midline; negative lymphadenopathy, JVD or tender Chest Wall Chest: Positive normal inspection of the chest and symmetric chest movement; negative increased A/P diameter Resp lung sounds: Positive good air exchange, wheezes, normal expiratory time and normal respiratory effort; negative diminished, rhonchi, rales or dullness to percussion Cardio Cardiac: Positive regular rate, regular rhythm, S1 normal and S2 normal; negative murmur GI GI: Positive normal to inspection; negative distended Genitourinary: Positive deferred Musc Musculoskeletal: Positive steady gait and ROM normal; negative kyphosis or scoliosis Skin Pulmonary Skin Exam: Positive intact; negative rash Pulses Pulse: Yes pulses normal x4 extremities Extremities Extremities: Yes capillary refill normal, No clubbing, No cyanosis, No edema Neuro Neurologic: Yes conversant, Yes no focal neuro deficits, Yes normal concentration, Yes understands questions, Yes cooperative, Yes normal cognition, Yes normal coordination Lymph Lymphatic: No lymphadenopathy, No tenderness, No cervical adenopathy Psych Appearance: Positive grossly normal, eye contact and well kempt Mental Status: Positive mental status grossly normal Mood: Positive congruent mood Affect: Positive normal affect Office Procedures Inhaler Training Inhaler Training Procedure performed by: Cathie De Jesus Inhaler Training: Yes personally trained on inhaler use, expresses understanding and continue to monitor Coding Level of Care Code Off vis,est,level 4 Diagnoses Bronchiectasis with acute lower respiratory infection J47.0 Bronchiectasis type: with acute lower respiratory infection PHILIP (obstructive sleep apnea) G47.33 Stage 2 moderate COPD by GOLD classification J44.9 Candidiasis of mouth B37.0 01/18/18 1545 <Electronically signed by Cathie MAHERC> Date Cathie MAHERC Cosigner Signature: Date (if applicable) CC: Jose Edwards MD PULMONARY FUNCTION Observed: 01/15/2018 Status: F Source: [place] 2:10 PM [facility] [place] [facility]urology [address] [place] [address] MR#: [id number] Acct: [id number] Name: TARSHA GONZALEZ Rep #: [id number] : 1955 62 From: Anthony Jalloh DO Referring Dr: Cathie De Jesus NP Status: REG CLI Ordering Dr: Date: Location: [facility] Sex: F C INTRODUCTION: The patient is a 62-year-old female that presents for pulmonary function testing secondary to a diagnosis of COPD. Respiratory therapy reports good patient effort. Bronchodilators were used during testing. INTERPRETATION: Forced expiration spirometry demonstrates the presence of a severe large airways obstructive ventilatory defect. There was no significant response to aerosolized bronchodilators. Spirograms are of good quality and do not plateau indicating slow emptying of the lungs. Body plethysmography was performed and reveals an elevated RV to 147% of predicted, indicative of underlying air trapping. Diffusing capacity by single breath CO is severely reduced at 32% of predicted. When compared to previous pulmonary function studies completed in 2016, there has been a 21% reduction in FEV1, worsening air-trapping and a 26% reduction in DLCO. 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 There has been worsening in the patient's PFTs since they were last completed in 2016, as noted above. 01/15/18 1410 <Electronically signed by Anthony Jalloh DO> Date Anthony Jalloh DO CC: Cathie Edwards MD Date Dictated: 01/15/181407 Date Transcribed: 01/15/181407 Family Practitioner: VICTORIA Signed 12 LEAD ELECTROCARDIOGRAM Observed: 01/07/2018 Status: F Source: [place] 2:56 PM [facility] [place] [facility] [address] [place] [address] 12 Lead EKG 01/04/18 1003 MR#: [id number] Acct: [id number] Name: TARSHA GONZALEZ Rep #: [id number] : 1955 62 From: Khai Watts MD Attending Dr: Jose Edwards MD, Chi Status: REG CLI Ordering Dr: Jose Edwards MD Date: 01/04/18 Location: [facility] Sex: F C Admitted: Test Reason : BACK PAIN Blood Pressure : / mmHG Vent. Rate : 061 BPM Atrial Rate : 061 BPM P-R Int : 132 ms QRS Dur : 076 ms QT Int : 412 ms P-R-T Axes : 072 071 061 degrees QTc Int : 414 ms Normal sinus rhythm Normal ECG Confirmed by MAC MENDEZ, KHAI ([id number]), development editor CONCHA ROMERO ([id number]) on 01/07/2018 2:56:25 PM Referred By: Jose Edwards Confirmed By:KHAI WATTS MD 01/07/18 1456 Date Khai Watts MD CC: Jose Edwards MD Signed LOW DOSE CT LUNG Observed: 11/30/2017 Status: F Source: [place] SCREENING 5:30 PM [facility] [place] [facility] [address] [place] [address] Lung Screening MR#: [id number] Acct: [id number] Name: TARSHA GONZALEZ Rep #: [id number] : 1955 F 62 From: Adriel Cristina PCP: Jose Edwards MD, Chi Status: REG CLI Study: Low Dose CT Lung Screening Date of Exam: 11/30/17 Exam# [id number] Ordering Dr: Jose Edwards MD STUDY: LOW DOSE CT LUNG CANCER SCREENING REASON FOR EXAM: Female, 62 years old. Tobacco use. Smoker 2 packs per day for 30 years. Quit smoking 4 years ago. Recent 40 pound weight loss. RADIATION DOSAGE (If Supplied By Facility): CTDIvol = ( 2.01 ) mGy, DLP = ( 55.65 ) mGycm TECHNIQUE: No contrast was administered. Low dose technique was utilized (average mAS-38 and kVp 120). 1.25 mm axial source images with a slice interval of 1.25- mm were reconstructed in lung windows. Nodule measured using lung windows on PACS and/or independent workstation with automated measurement of minimum and maximum diameter. Nodule measurement reported as average diameter rounded to the nearest whole number. Growth is defined as an increase ins size of greater than 1.5 mm. COMPARISON: CT chest: 12/29/2015 NODULES: Nodule: Again noted a 4.2 mm pleural-based noncalcified nodule in the right lower lobe posteriorly(axial image 97/196) , previously was measured 3.9 mm. An elongated 7 mm pleural base nodule posteriorly in the left lower lobe( image 138/196) was too small to identify. No worrisome lung nodule, mass or infiltrates are seen in both lungs. Emphysema: Moderate emphysematous changes in both lungs again demonstrated with parenchymal cystic lucencies, small subpleural blebs and with hyperinflation of the lungs. Endobronchial lesion: None. Aorta: There is atherosclerotic calcification of the aortic arch and descending aorta. Coronary arteries: Extensive calcification of the left coronary arteries. Heart: Normal size heart. Pulmonary artery: Within normal limits. Mediastinal nodes: Again demonstrated up to 1.8 cm enlarged likely reactive mediastinal lymph nodes. Other chest and abdominal findings: Increased thoracic kyphosis. Osteopenia. CT/Low Dose CT Lung Screening IMPRESSION: Most probably benign pleural base small lower lung nodules, as described. Lung-RADS category 3 - Continue screening with LDCT in 6 months. Moderate pulmonary emphysema. Coronary artery atherosclerotic disease. IMPORTANT NOTES FOR USE: ACR Lung-RADS Version 1.0 Assessment Categories Release Date: August 04, 2013 Category: Coded 0-4 bases on nodule(s) with highest degree of suspicion. Negative screen is defined as categories 1 and 2; a positive screen is defined as categories 3 and 4. Category 3 and 4A nodules that are unchanged on interval CT should be coded as category 2, and individuals returned to screening in 12 months. Category 4X: Category 3 or 4 nodules with additional imaging findings that increase the suspicion of lung cancer, such as spiculation, GGN that doubles in size in 1 year, enlarged lymph notes, etc. Category Modifiers: S (significant finding unrelated to lung cancer) and C (prior history of treated lung cancer) may be added to the 0-4 Lung-RADS Electronically Signed: Jack Cristina MD at 10:35 EDT Tel , Service support , CC: Jose Edwards MD Family Practitioner: Signed CBC W/DIFF, AUTOMATED Collected: 11/21/2017 Status: F Source: [place] 1:56 PM [facility] TYPE CODE TESTS RESULT OUT OF RANGE REFERENCE UNITS LAB L100.1000 4.4-11.0 K/mm3 Normal WBC 6.5 LAB L100.1200 4.2-5.4 M/mm3 Normal RBC 4.75 LAB L100.1300 12.0-15.0 g/dl Normal HGB 13.7 LAB L100.1400 37-47 % Normal HCT 41.8 LAB L100.1500 81-99 fL Normal MCV 88.0 LAB L100.1600 27.0-32.0 pg Normal MCH 28.8 LAB L100.1700 32-36 g/gl Normal MCHC 32.8 LAB L100.1810 11.6-14.6 % Normal RDW CV 14.0 LAB L100.1820 35.1-43.9 fl High RDW SD 44.9 LAB L100.1900 150-450 K/mm3 Normal PLT 280 LAB L100.2000 6.2-12.0 fl Normal MPV 10.1 LAB L100.2100 47-70 % Normal NEUT% 54.9 LAB L100.2200 19-41 % Normal LY% 30.2 LAB L100.2300 0-10 % Normal MONO% 5.7 LAB L100.2400 0-5 % High EO% 8.4 LAB L100.2500 0-1 % Normal BASO% 0.6 LAB L100.2550 0.0-0.9 % Normal IM GRAN % 0.200 Result Comment: IG% - Immature Granulocytes (promyelocytes, myelocytes and metamyelocytes) > 1% indicates that a LEFT SHIFT is Present. LAB L100.2620 2.0-7.7 X10 3/uL Normal Absolute Neut 3.6 LAB L100.2720 0.83-4.51 X10 3/ul Normal Absolute Lymph 1.95 Performed By: #### L100.0100 #### [facility] [address] [place], [place], [id number] COMPREHENSIVE METABOLIC Collected: 11/21/2017 Status: F Source: [place] 1:56 PM [facility] TYPE CODE TESTS RESULT OUT OF RANGE REFERENCE UNITS LAB L501.0100 74-106 mg/dL Normal GLU 98 Result Comment: Please note revised GLUCOSE reference range effective 2017. LAB L501.1000 7-18 mg/dL Normal BUN 8 LAB L501.1100 0.55-1.02 mg/dL Normal CREAT,SERUM 0.88 Result Comment: The validity of the calculated GFR AND GFRAA in patients over 70 years has not been determined. Clinical correlation is essential. LAB L501.1110 >60 mL/min Normal EST GFR 69 Result Comment: Non- GFR Calc LAB L501.1115 >60 mL/min Normal EST GFR - AA 83 Result Comment: GFR Calc LAB L501.1300 10-20 RATIO Low BUN/CRE 9.0 LAB L501.1500 6.4-8.2 g/dL Normal T PROT 7.3 LAB L501.1800 3.2-5.0 g/dL Normal ALB 3.7 LAB L501.1950 2.2-4.2 g/dL Normal GLOB 3.6 LAB L501.2000 0.9-2.4 RATIO Normal A/G 1.0 LAB L501.2200 8.5-10.1 mg/dL Normal CA 9.1 LAB L501.4100 15-37 U/L Normal AST 17 LAB L501.4305 45-117 U/L Normal ALK P 100 LAB L501.4405 13-56 U/L Normal ALT 19 LAB L501.4600 0.20-1.00 mg/dL Normal T BILI 0.60 LAB L501.5300 136-145 mmol/L Normal NA 141 LAB L501.5600 3.5-5.1 mmol/L Normal K 4.1 LAB L501.5900 98-107 mmol/L High CL 108 LAB L501.6100 21.0-32.0 mmol/L Normal CO2 26.0 LAB L501.6200 5-15 Normal GAP 7 Performed By: #### L500.4050, L501.9520 #### [facility] [address] [place], [address] THYROID STIM HORMONE Collected: 11/21/2017 Status: F Source: [place] ([place]) 1:56 PM [facility] TYPE CODE TESTS RESULT OUT OF RANGE REFERENCE UNITS LAB L501.9520 0.358-3.74 uIU/mL Normal TSH 1.03 Performed By: #### L500.4050, L501.9520 #### [facility] [address] [facility]. [place], [place], [address] HEPATITIS C ANTIBODIES Collected: 11/21/2017 Status: F Source: [place] 1:56 PM [facility] TYPE CODE TESTS RESULT OUT OF RANGE REFERENCE UNITS LAB L3100.0650 0.0-0.9 s/co ratio Normal HEP C AB <0.1 Result Comment: Negative: < 0.8 Indeterminate: 0.8 - 0.9 Positive: > 0.9 The CDC recommends that a positive HCV antibody result be followed up with a HCV Nucleic Acid Amplification test (630569). Performed at: [facility] [id number] Rail Signal Mechanic: Ed Arce PhD, Phone: [phone] Performed By: #### L3100.0625 #### [facility] (refer to report for specific site) refer to report for address and phone number BREAST LIMITED Observed: 11/15/2017 Status: F Source: [place] UNILATER[place] 9:43 AM [facility] [place] [facility] [address] [place] [address] Breast Limited Unilateral MR#: [id number] Acct: [id number] Name: TARSHA GONZALEZ Rep #: [id number] : 1955 F 62 From: Adama Guerrero MD PCP: Jerry MENDEZ,Jose Mccall Status: REG CLI Study: Breast Limited Unilateral Date of Exam: 11/15/17 Exam# [id number] Ordering Dr: Jose Edwards MD STUDY: ULTRASOUND BREAST - RIGHT REASON FOR EXAM: Female, 62 years old. Right breast palpable lump. Right diagnostic mammogram today. TECHNIQUE: Axial and longitudinal images of the RIGHT breast were performed with a high resolution ultrasound transducer. COMPARISON: No prior right breast ultrasound imaging available. Correlation same day 11/15/2017 and 09/12/2016 mammograms. FINDINGS: RIGHT Breast: No ultrasound abnormality is identified. No hypoechoic, heterogeneous or hyperechoic lesion identified. US/Breast Limited Unilateral IMPRESSION: Negative right breast targeted ultrasound study. ASSESSMENT CATEGORY: BIRADS Category 2: Benign. A letter regarding these results will be sent to the patient by the facility within 30 days. FOLLOW UP RECOMMENDATION: Yearly follow up mammogram recommended. (A) Negative results should not deter biopsy as a palpable lesion should be followed on clinical grounds and biopsy performed if clinically persistent for 3 months or increasing size. Approximately 10% of breast cancers are not detected by mammography. A normal mammogram should not delay biopsy of a clinically suspicious abnormality. Electronically Signed: Adama Guerrero, at 11:19 EDT Tel , Service support , CC: Jose Edwards MD Family Practitioner: Signed RAMIREZ MAMM W/CAD, Observed: 11/15/2017 Status: F Source: [facility] 9:43 AM [facility] [place] [facility] [address] [place] [address] DIAG MAMM W/CAD, BILAT MR#: [id number] Acct: [id number] Name: TARSHA GONZALEZ Rep #: [id number] : 1955 F 62 From: Adama Guerrero MD PCP: Jose Edwards MD, Chi Status: REG CLI Study: DIAG MAMM W/CAD, BILAT Date of Exam: 11/15/17 Exam# [id number] Ordering Dr: Jose Edwards MD MAMMOGRAPHY - BILATERAL DIAGNOSTIC 3-D GERMAIN SYNTHESIS REASON FOR EXAM: Female, 62 years old. Right breast palpable lump x 2 weeks. PERTINENT HISTORY: Non-contributory. TECHNIQUE: Digital examination. Mediolateral oblique (MLO) and craniocaudad (CC) views of both breasts were obtained. 2- D mammograms and 3-D Germain synthesis of the breast (s) were performed. CAD was performed. COMPARISON: 09/12/2016 mammogram. FINDINGS: The breast composition is composed of scattered fibroglandular density. Right axilla shows a faint triangular radiopaque marker for the area of clinical concern where patient states she feels a palpable lump for 2 weeks but no underlying associated mammographic lesion is identified. No new asymmetric density, dominant mass, dense spiculated masses, abnormal clustered microcalcifications, architectural distortion, skin thickening or nipple retraction identified. Coarse benign-appearing calcifications. No new abnormality identified with tomosynthesis. There has been no significant change since the prior study. BI/DIAG MAMM W/CAD, BILAT IMPRESSION: No mammographic signs of malignancy. Routine yearly mammograms recommended. ASSESSMENT CATEGORY: BIRADS Category 0: Incomplete. Need additional imaging evaluation as above. A letter regarding these results will be sent to the patient by the facility within 30 days. FOLLOW UP RECOMMENDATION: Incomplete mammogram, need additional imaging with right breast targeted ultrasound imaging near area of clinical concern as described. Negative results should not deter biopsy as a palpable lesion should be followed on clinical grounds and biopsy performed if clinically persistent for 3 months or increasing size. Approximately 10% of breast cancers are not detected by mammography. A normal mammogram should not delay biopsy of a clinically suspicious abnormality. Electronically Signed: Adama Guerrero, at 11:52 EDT Tel , Service support , CC: Jose Edwards MD Family Practitioner: Signed PULMONARY VISIT REPORT Observed: 10/24/2017 Status: F Source: [place] 4:55 PM [facility] [place] [address] [address] [facility] [place] [address] OFFICE VISIT Date of Service: 10/24/17 MR#: [id number] Acct: [id number] Name: TARSHA GONZALEZ Rep #: [id number] : 1955 Provider: Cathie De Jesus Age/Sex: 62/F Location: [facility] [place] Status: Signed Assessment AND Plan Problems 1. Stage 2 moderate COPD by GOLD classification J44.9 Plan Deteriorated. Obtaining a chest x-ray today to rule out pneumonia or any other acute cardio/pulmonary process. Placing her on a prednisone taper. Not repeating antibiotics at this time. Keep previously scheduled routine follow-up with Dr. Jalloh on February 04, 2018, she has testing prior to that visit on January 15 and again on January 18. She has been encouraged to contact the office if she is not feeling some slight improvement early next week. She is also been encouraged to go to ED/urgent care if her symptoms worsen over the weekend. She is agreeable to this plan and conveys understanding. She will also be started on Inderal by nebulizer, she has responded nicely to the nebulizer medication delivery system. She reports that she was using her daughter's nebulizer recently, unfortunately her daughter needed the nebulizer back. She will be set up with her own nebulizer and the albuterol ampules needed. Orders Orders: Medications New: prednisone take 4 tabs for three days, then 3 tabs for three days, then 10 mg PO QDAY 2 tabs for three days, then 1 tab for 3 days Refilled: albuterol sulfate Use q4 hours and PRN 2.5 mg (3 mL) Inhalation Q4H PRN J44.9 for wheezing albuterol sulfate HFA 90 mcg/actuation 1 - 2 puffs Inhalation Q4H PRN PRN COPD JJ44.9 44.9 HPI Wants to discuss a nebulizer: Chief Complaint: Cough HPI Comments Details: This patient presents the office today for an acute visit with complaints of cough, wheezing and chest tightness. She recently completed a Z-Artem. Prior to the Z-Artem she had a cough that was productive of yellow sputum. She now has a cough that is productive of white sputum. She has pain in the right lung base with deep inspiration. Deep inspiration aggravates it, restful breathing alleviates it. She continues to have shortness of breath on exertion. She has occasional wheezing and chest tightness, she is using her albuterol rescue inhaler 1-2 times daily. The use of the albuterol rescue inhaler provides her with temporary relief of the wheezing and chest tightness. She is compliant with Breo daily. She rinses her mouth out after each use. She denies any medication side effects such as sore throat or thrush. She is also compliant with improved daily. She denies any hemoptysis, or palpitations. She is experiencing an increase in fatigue. She denies any fevers, is not sure if she has experienced any chills. She denies any body aches. See complete review of systems. 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 Required: No Accompanied by: Self Is patient in pain?: Yes Allergies codeine Allergy (Verified 10/24/17 13:37) Itching morphine Allergy (Verified 10/24/17 13:37) Itching Medications Clopidogrel Bisulfate [Plavix] 75 mg PO DAILY 10/23/15 [History Confirmed 10/24/17] fluticasone 200 mcg-vilanterol 25 mcg/dose powder for inhalation 1 inh INHALATION QDAY 03/12/17 [History Confirmed 10/24/17] nitrofurantoin monohydrate/macrocrystals 100 mg capsule 100 mg PO Q12H 03/12/17 [History Confirmed 10/24/17] phenazopyridine 100 mg tablet 100 mg PO TID 03/12/17 [History Confirmed 10/24/17] umeclidinium 62.5 mcg/actuation blister powder for inhalation 1 inh INHALATION QDAY #30 ea 08/06/17 [Rx Confirmed 10/24/17] azithromycin 250 mg tablet 250 mg PO QDAY #6 tab 09/07/17 [Rx Confirmed 10/24/17] albuterol sulfate 2.5 mg/3 mL (0.083 %) solution for nebulization 2.5 mg INHALATION Q4H PRN #120 vial 10/24/17 [Rx] albuterol sulfate HFA 90 mcg/actuation aerosol inhaler 1 - 2 puff INHALATION Q4H PRN PRN #1 inhaler 10/24/17 [Rx Confirmed 10/24/17] prednisone 10 mg tablet 10 mg PO QDAY #30 tab 10/24/17 [Rx Confirmed 10/24/17] PFSH Medical History Atherosclerotic heart disease of [place] coronary artery without angina pectoris (Chronic) COPD (chronic obstructive pulmonary disease) (Chronic) Cardiac murmur, unspecified (Chronic) Central sleep apnea (Chronic) Chest pain, unspecified (Chronic) TORREZ (dyspnea on exertion) (Chronic) Hyperlipidemia (Chronic) Nicotine dependence in remission (Chronic) PHILIP (obstructive sleep apnea) (Chronic) Obesity (Chronic) Peripheral vascular disease (Chronic) Urinary frequency (Chronic) UTI (urinary tract infection) (Resolved) Surgical History H/O: hysterectomy (Resolved) S/P surgical manipulation of ankle joint (Resolved) Family History Mother Cancer Lung CA Father Emphysema Chronic Bronchitis, in 80s. Sister Diabetes CAD (coronary artery disease) Sister Heart disease Brother Respiratory abnormalities Social History Smoking Status: Former smoker second hand exposure: No alcohol intake: never substance use type: does not use what type of physical activity do you participate in: none FEV1% FEV1%: 69 Review of Systems Const CONSTITUTIONAL: Positive fatigue; negative anorexia, body ache, chills, daytime sleepiness, fever(s), night sweats, oral thrush, stops breathing during sleep, weight loss, sleeping in chair, weight loss, weight gain, frequent colds, seasonal allergies, other, headache(s) or orthopnea EETM Ear Nose Throat Mouth: Positive hard of hearing; negative hoarseness, dry mouth in morning, change in vision, itchy eyes, eye pain, swallowing Difficulty, ear pain, nose bleed, headache(s), mouth pain, nasal congestion, nasal discharge, post nasal drip, sinus pain, sinus pressure, sore throat or other Cardio Cardiovascular: Negative chest pain, chest pain at rest, chest pain with activity, irregular heart rhythm, edema, shortness of breath when lying down, palpitations, murmur or other Resp Respiratory: Positive as per HPI, shortness of breath shortness of breath: Positive with activity, wheezing, cough cough: Positive productive color: Positive white, chest tightness and apnea; negative pain with cough, chest congestion, pain on inspiration, inhalers, increase use of rescue inhalers, snoring or other Gastro Gastrointestional: Negative bloody stools, change in appetite, difficulty swallowing, reflux, hematemesis, melena stool, loose stool, constipation or other Genitourinary: Negative blood in urine, nocturia, pain with urination or other Musc Musculoskeletal: Negative body pain, back pain, neck pain or other Skin/Breast Skin/Breast: Negative dry skin, itching, rash, unusual bruising, breast lump or other Neuro Neurological: Negative restless legs, confusion, weakness or other Psych Psychocological: Negative abnormal sleep pattern, anxiety, thoughts of hurting self/others, hopelessness or other Lymph Lymphatic: Negative easy bleeding, easy bruising, swollen lymph nodes or other Exam Const Constitutional: Positive conversant, cooperative, in no acute respiratory distress, healthy appearing, well developed, well nourished and good hygiene Head Head: Positive normocephalic and atraumatic; negative cyanosis of lips/distal nose Eyes Eye: Positive clear conjunctiva; negative nystagmus or scleral abnormality Ears Ear: Positive hard of hearing and external ears normal Nose Nose: Positive external nose normal and no nasal discharge; negative epistaxis Mouth Mouth: Positive oral mucosae normal, dentures, no lesions and posterior oropharynx is adequate; negative post nasal drip, malodorous breath or oral thrush present Mallampati Score: II: Mallampati Score Neck Neck: Positive normal visual inspection, full ROM and trachea midline; negative lymphadenopathy, JVD or tender Chest Wall Chest: Positive normal inspection of the chest and symmetric chest movement; negative increased A/P diameter Resp lung sounds: Positive diminished, wheezes wheezing: Positive left and lower, normal expiratory time and normal respiratory effort; negative rhonchi, rales, dullness to percussion or wheeze present on forced exhalation Cardio Cardiac: Positive regular rate, regular rhythm, S1 normal and S2 normal; negative murmur GI GI: Positive normal to inspection and normal bowel sounds; negative distended Genitourinary: Positive deferred Musc Musculoskeletal: Positive steady gait and ROM normal; negative kyphosis or scoliosis Skin Pulmonary Skin Exam: Positive intact; negative rash, lesion, ulcers or erythema Pulses Pulse: Yes pulses normal x4 extremities Extremities Extremities: Yes capillary refill normal, No clubbing, No cyanosis, No edema Neuro Neurologic: Yes conversant, Yes no focal neuro deficits, Yes normal concentration, Yes understands questions, Yes cooperative, Yes normal cognition, Yes normal coordination Lymph Lymphatic: No lymphadenopathy, No tenderness, No cervical adenopathy, No axillary adenopathy Psych Appearance: Positive grossly normal, eye contact and well kempt Mental Status: Positive mental status grossly normal Mood: Positive congruent mood Affect: Positive normal affect Coding Level of Care Code Off vis,est,level 3 Diagnoses Stage 2 moderate COPD by GOLD classification J44.9 10/24/17 1655 <Electronically signed by Cathie QUINTEROS> Date Cathie QUINTEROS Cosigner Signature: Date (if applicable) CC: Jose Edwards MD CHEST PA AND LATERAL Observed: 10/24/2017 Status: F Source: [place] 2:13 PM [facility] [place] [facility] [address] [place] [address] Chest PA and Lateral MR#: [id number] Acct: [id number] Name: TARSHA GONZALEZ Rep #: [id number] : 1955 F 62 From: Darshan Harrington MD PCP: Jose Edwards MD, Chi Status: REG CLI Study: Chest PA and Lateral Date of Exam: 10/24/17 Exam# [id number] Ordering Dr: Cathie De Jesus STUDY: X-RAY CHEST REASON FOR EXAM: Female, 62 years old. CHEST PAIN TECHNIQUE: Frontal and lateral views of the chest. COMPARISON: September 07, 2016 FINDINGS: Chronic appearing increased interstitial lung markings. There is no demonstrated pleural abnormality. Normal heart size. Normal mediastinum and helder. Normal visualized pulmonary arteries. There is atherosclerotic calcification of the aortic arch with tortuosity. There are diffuse degenerative changes of the visualized thoracic spine. There is degenerative osteoarthritis of the bilateral shoulders. There is no demonstrated abnormality of the visualized soft tissue structures of the upper abdomen. RAD/Chest PA and Lateral IMPRESSION: There are no acute findings. Electronically Signed: Darshan Harrington MD at 18:50 EDT , Service support , CC: Cathie De Jesus; Jose Edwards MD Family Practitioner: Signed PULMONARY VISIT REPORT Observed: 08/06/2017 Status: F Source: [place] 1:16 PM [facility] [address] [place] [address] OFFICE VISIT Date of Service: 08/06/17 MR#: [id number] Acct: [id number] Name: TARSHA GONZALEZ Rep #: [id number] : 1955 Provider: Cathie De Jesus Age/Sex: 62/F Location: [facility] [place] Status: Signed Assessment AND Plan 1. Stage 2 moderate COPD by GOLD classification J44.9 Status Chronic Plan Stable. She does not appear to be an exacerbation of her COPD today. I did change her from Spiriva to improve, hoping that this would be covered by her insurance plan. She was given 1 month supply and was started on the medication in the office today. Continue Breo. She will be due for a pulmonary function tests and a pulmonary stress test prior to a 6 month follow-up with Dr. Jalloh. She has been encouraged to contact the office if she develops any new or worsening symptoms in the meantime. Orders Orders: Referrals: 2. PHILIP (obstructive sleep apnea) G47.33 Plan Continues noncompliance. Not interested in reinitiating Pap therapy at this time. Follow-up with Dr. Jalloh in 6 months. 3. Tobacco abuse, in remission F17.201 Plan Continue to encourage smoking cessation. Plan Detail Other Medications New: Follow Up 6 Months (DMB) HPI 6 M FU: Chief Complaint: Shortness of breath on exertion HPI Comments Details: This Patient presents to the office today for routine follow-up on her moderate COPD. She is on room air, ambulatory and accompanied by her significant other. She has not been seen in the ED urgent care for any respiratory illnesses since her last office visit. She has not required antibiotics or prednisone for any breathing problems, denies having any episodes of bronchitis over the winter. She continues compliance with her Breo daily. She rinses her mouth out after each use. She denies any medication side effects such as sore throat or thrush. She continues compliance with Spiriva however, it has become very expensive and she admits that she is not using it daily as recommended in order to take the prescription last longer. She has not needed to use her rescue inhaler. She is using her albuterol nebulizer approximately 1-2 times per month. She continues to experience shortness of breath on exertion. She also admits to occasional wheezing. She denies any cough, sputum production or hemoptysis. She denies any chest tightness, chest congestion, chest pain or palpitations. She has not experienced any fever, chills or body aches. She continues noncompliance with her Pap therapy. She reports that she has very poor sleeping habits and often goes 24-36 hours without sleeping. Because of these long periods without sleep it reduced her compliance to less than 80% and the insurance company would no longer cover her Pap therapy. She reports that when the pressure support was lowered she tolerated it much more than she did once it was determined that she had central apnea and the pressure was turned up per her own words. Intake Vital Signs08/06/17 Height 5 ft 3.5 in Intake Visit Reasons: 6 M FU Is patient in pain?: No Allergies codeine Allergy (Verified 08/06/17 10:50) Itching morphine Allergy (Verified 08/06/17 10:50) Itching Medications Albuterol Aerosols [Ventolin Aerosols] 2.5 mg INHALATION Q4H PRN #25 vial 10/23/15 [Rx Confirmed 08/06/17] Albuterol Inhaler [Ventolin Hfa] 1 - 2 puff INHALATION Q4H PRN PRN #1 inhaler 10/23/15 [Rx Confirmed 08/06/17] Clopidogrel Bisulfate [Plavix] 75 mg PO DAILY 10/23/15 [History Confirmed 08/06/17] fluticasone 200 mcg-vilanterol 25 mcg/dose powder for inhalation 1 inh INHALATION QDAY 03/12/17 [History Confirmed 08/06/17] nitrofurantoin monohydrate/macrocrystals 100 mg capsule 100 mg PO Q12H 03/12/17 [History Confirmed 08/06/17] phenazopyridine 100 mg tablet 100 mg PO TID 03/12/17 [History Confirmed 08/06/17] mupirocin 2 % nasal ointment 1 applic INTRANASAL BID 10 Days #1 g 08/06/17 [Rx Confirmed 08/06/17] umeclidinium 62.5 mcg/actuation blister powder for inhalation 1 inh INHALATION QDAY #30 ea 08/06/17 [Rx Confirmed 08/06/17] FOR[facility]LY [facility] Medical History Atherosclerotic heart disease of [place] coronary artery without angina pectoris (Chronic) COPD (chronic obstructive pulmonary disease) (Chronic) Cardiac murmur, unspecified (Chronic) Central sleep apnea (Chronic) Chest pain, unspecified (Chronic) TORREZ (dyspnea on exertion) (Chronic) Hyperlipidemia (Chronic) Nicotine dependence in remission (Chronic) PHILIP (obstructive sleep apnea) (Chronic) Obesity (Chronic) Peripheral vascular disease (Chronic) Urinary frequency (Chronic) UTI (urinary tract infection) (Resolved) Surgical History H/O: hysterectomy (Resolved) S/P surgical manipulation of ankle joint (Resolved) Family History Mother Cancer Lung CA Father Emphysema Chronic Bronchitis, in 80s. Sister Diabetes CAD (coronary artery disease) Sister Heart disease Brother Respiratory abnormalities Social History Smoking Status: Former smoker second hand exposure: No alcohol intake: never substance use type: does not use what type of physical activity do you participate in: none Review of Systems Const CONSTITUTIONAL: Positive fatigue; negative anorexia, body ache, chills, daytime sleepiness, fever(s), night sweats, oral thrush, stops breathing during sleep, weight loss, sleeping in chair, weight loss, weight gain, frequent colds, seasonal allergies, other, headache(s) or orthopnea EETM Ear Nose Throat Mouth: Positive hearing normal; negative hard of hearing, hoarseness, dry mouth in morning, change in vision, itchy eyes, eye pain, swallowing Difficulty, ear pain, nose bleed, headache(s), mouth pain, nasal congestion, nasal discharge, post nasal drip, sinus pain, sinus pressure, sore throat or other Cardio Cardiovascular: Negative chest pain, chest pain at rest, chest pain with activity, irregular heart rhythm, edema, shortness of breath when lying down, palpitations, murmur or other Resp Respiratory: Positive as per HPI, shortness of breath shortness of breath: Positive with activity and wheezing; negative pain with cough, chest congestion, cough, chest tightness, pain on inspiration, inhalers, increase use of rescue inhalers, snoring, apnea or other Gastro Gastrointestional: Negative bloody stools, change in appetite, difficulty swallowing, reflux, hematemesis, melena stool, loose stool, constipation or other Genitourinary: Negative blood in urine, nocturia, pain with urination or other Musc Musculoskeletal: Negative body pain, back pain, neck pain or other Skin/Breast Skin/Breast: Negative dry skin, itching, rash, unusual bruising, breast lump or other Neuro Neurological: Negative restless legs, confusion, weakness or other Psych Psychocological: Negative abnormal sleep pattern, anxiety, thoughts of hurting self/others, hopelessness or other Lymph Lymphatic: Negative easy bleeding, easy bruising, swollen lymph nodes or other Exam Const Constitutional: Positive conversant, cooperative, in no acute respiratory distress, healthy appearing, well developed, well nourished and good hygiene Head Head: Positive normocephalic and atraumatic; negative cyanosis of lips/distal nose Eyes Eye: Positive clear conjunctiva and nystagmus; negative scleral abnormality Ears Ear: Positive hearing normal and external ears normal; negative hard of hearing Nose Nose: Positive no nasal discharge and external nose normal; negative epistaxis Mouth Mouth: Positive oral mucosae normal, no lesions, dentures and posterior oropharynx is adequate; negative post nasal drip, malodorous breath or oral thrush present Mallampati Score: II: Mallampati Score Neck Neck: Positive normal visual inspection, full ROM and trachea midline; negative lymphadenopathy, JVD or tender Chest Wall Chest: Positive normal inspection of the chest and symmetric chest movement; negative increased A/P diameter Resp lung sounds: Positive diminished, normal expiratory time and normal respiratory effort; negative wheezes, rhonchi, rales, dullness to percussion or wheeze present on forced exhalation Cardio Cardiac: Positive regular rate, regular rhythm, S1 normal and S2 normal; negative murmur GI GI: Positive normal to inspection and normal bowel sounds; negative distended Genitourinary: Positive deferred Musc Musculoskeletal: Positive steady gait and ROM normal; negative kyphosis or scoliosis Skin Pulmonary Skin Exam: Positive intact; negative rash, lesion, ulcers, erythema, scaly or dermal atrophy Pulses Pulse: Yes pulses normal x4 extremities Extremities Extremities: Yes capillary refill normal, No clubbing, No cyanosis, No edema, No stasis dermatitis Neuro Neurologic: Yes conversant Lymph Lymphatic: No lymphadenopathy, No tenderness, No cervical adenopathy, No axillary adenopathy Psych Appearance: Positive grossly normal, eye contact and well kempt Mental Status: Positive mental status grossly normal Mood: Positive congruent mood Affect: Positive normal affect Coding Level of Care Code Off vis,est,level 4 Diagnoses Stage 2 moderate COPD by GOLD classification J44.9 PHILIP (obstructive sleep apnea) G47.33 Tobacco abuse, in remission F17.201 08/06/17 1316 <Electronically signed by Cathie QUINTEROS> Date Cathie MAHERC Cosigner Signature: Date (if applicable) CC: Jose Edwards MD CBC W/DIFF, AUTOMATED Collected: 05/21/2017 Status: F Source[place] 1[place] [facility] [place] CODE TESTS RESULT OUT OF RANGE REFERENCE UNITS LAB L100.1000 4.4-11.0 K/mm3 Normal WBC 4.9 LAB L100.1200 4.2-5.4 M/mm3 Normal RBC 4.36 LAB L100.1300 12.0-15.0 g/dl Normal HGB 13.1 LAB L100.1400 37-47 % Normal HCT 38.3 LAB L100.1500 81-99 fL Normal MCV 87.8 LAB L100.1600 27.0-32.0 pg Normal MCH 30.0 LAB L100.1700 32-36 g/gl Normal MCHC 34.2 LAB L100.1810 11.6-14.6 % Normal RDW CV 13.2 LAB L100.1820 35.1-43.9 fl Normal RDW SD 41.6 LAB L100.1900 150-450 K/mm3 Normal PLT 284 LAB L100.2000 6.2-12.0 fl Normal MPV 9.4 LAB L100.2100 47-70 % Normal NEUT% 51.7 LAB L100.2200 19-41 % Normal LY% 31.8 LAB L100.2300 0-10 % Normal MONO% 5.9 LAB L100.2400 0-5 % High EO% 9.6 LAB L100.2500 0-1 % Normal BASO% 0.6 LAB L100.2550 0.0-0.9 % Normal IM GRAN % 0.400 Result Comment: IG% - Immature Granulocytes (promyelocytes, myelocytes and metamyelocytes) > 1% indicates that a LEFT SHIFT is Present. LAB L100.2620 2.0-7.7 X10 3/uL Normal Absolute Neut 2.5 LAB L100.2720 0.83-4.51 X10 3/ul Normal Absolute Lymph 1.56 Performed By: #### L100.0100 #### [facility] [address] [place], [address] VITAMIN D,25 HYDROXY Collected: 05/21/2017 Status: F Source: [place] 1[place] [facility] [place] CODE TESTS RESULT OUT OF REFERENCE UNITS RANGE LAB L506.1000 19.95-100.01 ng/mL Low Vitamin D 6.6 25-OH Result Comment: Vitamin D 25(OH) Status Range Deficiency <20 ng/mL (50nmol/L) Insuffciency 20 - 30 ng/mL (50 - 75 nmol/L) Sufficiency 30 - 100 ng/mL (75 - 250 nmol/L) Toxicity >100 ng/mL (>250 nmol/L) Performed By: #### L506.1000 #### [facility] [address] [facility] [place], [address] COMPREHENSIVE METABOLIC Collected: 05/21/2017 Status: F Source: [place] 1:[place] [facility] [place] CODE TESTS RESULT OUT OF RANGE REFERENCE UNITS LAB L501.0100 74-106 mg/dL Normal GLU 96 Result Comment: Please note revised GLUCOSE reference range effective 2017. LAB L501.1000 7-18 mg/dL Normal BUN 10 LAB L501.1100 0.55-1.02 mg/dL Normal CREAT,SERUM 0.64 Result Comment: The validity of the calculated GFR AND GFRAA in patients over 70 years has not been determined. Clinical correlation is essential. LAB L501.1110 >60 mL/min Normal EST GFR 99 Result Comment: Non- GFR Calc LAB L501.1115 >60 mL/min Normal EST GFR - AA 120 Result Comment: GFR Calc LAB L501.1300 10-20 RATIO Normal BUN/CRE 15.5 LAB L501.1500 6.4-8.2 g/dL T Normal PROT 6.7 LAB L501.1800 3.2-5.0 g/dL Normal ALB 3.4 LAB L501.1950 2.2-4.2 g/dL Normal GLOB 3.3 LAB L501.2000 0.9-2.4 RATIO Normal A/G 1.0 LAB L501.2200 8.5-10.1 mg/dL CA Normal 8.6 LAB L501.4100 15-37 U/L Normal AST 15 LAB L501.4305 45-117 U/L Normal ALK P 97 LAB L501.4405 13-56 U/L Normal ALT 19 Result Comment: Please note revised ALT reference range effective 2017. LAB L501.4600 0.20-1.00 mg/dL Normal T BILI 0.60 LAB L501.5300 136-145 mmol/L Normal NA 140 LAB L501.5600 3.5-5.1 mmol/L Normal K 3.6 LAB L501.5900 98-107 mmol/L High CL 108 LAB L501.6100 21.0-32.0 mmol/L Normal CO2 25.0 LAB L501.6200 5-15 Normal GAP 7 Performed By: #### L500.4050, L501.9520 #### [facility] [address] [place], [address] THYROID STIM HORMONE Collected: 05/21/2017 Status: F Source: [place] (TSH) 1:59 [facility] [place] REPOSITORY TYPE CODE TESTS RESULT OUT OF RANGE REFERENCE UNITS LAB L501.9520 0.358-3.74 uIU/mL Normal TSH 0.59 Performed By: #### L500.4050, L501.9520 #### [facility] [address] [place], [address] ALLERGIES ALLERGIES DATE TYPE / CODE NAME / CODE REACTION SEVERITY SOURCE 04/10/2018 Drug doxycycline/ severe headaches SV [facility] Allergy/4160 [id number](R and muscle spasms [place] 4559002(SNOMED XNORM) to the chest Repository CT) 04/04/2018 Drug morphine/F00 Itching Unknown [facility] Allergy/4160 [id number]([place] [address](SNOMED RM) Repository CT) 04/04/2018 Drug codeine/F006 Itching Unknown [facility] Allergy/4160 757200([place] 5813302(SNOMED M) Repository CT) ENCOUNTERS ENCOUNTERS ADMIT/DISCHARGE ACCOUNT ADMITTING ENCOUNTER LOCATION SOURCE NUMBER CLASS 04/04/2018/ [id number] Ambulatory [facility] [place] [facility] 03/22/2018 [id number] Ambulatory [place] 1 [facility] ing:SL Repository 02/25/2018 [id number] Ambulatory [place] 5 [facility] ing:HPRAD Repository 02/25/2018/ [id number] Ambulatory BMSBuilding:B [place] 8 0 [facility] Repository 02/04/2018/ [id number] Amb[facility]:B [place] [facility] 01/19/2018 [id number] Ambulatory BMSBuilding:W [place] 8 [facility] Repository 01/18/2018/ [id number] Ambulatory BMSBuilding:B [place] [facility] 01/18/2018 [id number] [facility] 0 [facility] ing[facility]N Repository 01/15/2018 [id number] Ambulatory [place] 8 [facility] ing[facility]PSN Repository 01/15/2018 [id number] Ambulatory BMSBuilding:W [place] 4 [facility] Repository 01/04/2018 [id number] Ambulatory [place] 3 [facility] ing:CVS Repository 01/04/2018 [id number] Ambulatory BMSBuilding:W [place] 7 [facility] Repository 11/30/2017 [id number] Ambulatory [place] 2 [facility] ing[facility]CT Repository 11/21/2017 [id number] [place]ulatory [place] 6 [facility] Hospital ing:POLAB3 Repository 11/15/2017 [id number] Ambulatory [place] 4 [facility] Hospital ing:OPUS Repository 10/24/2017 [id number] Ambulatory [place] 3 [facility] ing:RAD Repository 10/24/2017/ [id number] Ambulatory BMSBuilding:B [place] 8 3 [facility] Repository 08/06/2017/ [id number] Ambulatory BMSBuilding:B [place] 8 1 [facility] Repository 07/23/2017 [id number] Ambulatory B[place] 0 [facility] Repository 05/21/2017 [id number] Ambulatory [place] 8 [facility] Hospital ing:POLAB3 Repository PAYERS PAYERS ENCOUNTER GUARANTOR PAYER SUBSCRIBER SOURCE 04/04/2018 TARSHA A Primary TARSHA A [place] [id number] Insurance:MEDICARE ROBINSONDOB: [facility] PART A [facility] [id number] Number: Repository [address]Pkn: (520) [id number] [phone] () Date:2018-04-01 04/04/2018 Secondary [place] A [place] Insurance:MEDICAIDPol ROBINSONDOB: [facility] Number: [id number] Hospital [id number] Repository Date:2018-04-01 04/04/2018 Tertiary NOT GIVENUNK [place] Insurance:SELF PAY [facility] Number: Effective Repository Date:2018-04-03 03/22/2018 TARSHA A Primary TARSHA A [place] [id number] Insurance:MEDICARE ROBINSONDOB: [facility] [id number] Number: Repository [address]Vql: 330 [id number] [phone] (HP) Date:2018-01-21 03/22/2018 Secondary TARSHA A [place] Insurance:MEDICAIDPol ROBINSONDOB: [facility] icy Number: [id number] Hospital [id number] Repository Date:2018-01-21 03/22/2018 Tertiary NOT GIVENUNK [place] Insurance:SELF PAY [facility] Effective Repository Date:2018-01-21 02/25/2018 TARSHA A Primary TARSHA A [place] [id number] Insurance:MEDICARE ROBINSONDOB: [facility] [id number] [place] Number: Repository [address]Obh: 330 [id number] [phone] () Date:2018-02-25 02/25/2018 Secondary TARSHA A [place] Insurance:MEDICAIDPol ROBINSONDOB: [facility] icy Number: [id number] Hospital [id number] Repository Date:2018-02-25 02/25/2018 Tertiary NOT GIVENUNK [place] Insurance:SELF PAY [facility] Number: Effective Repository Date:2018-02-25 02/25/2018 TARSHA A Primary TARSHA A [place] [id number] Insurance:MEDICARE ROBINSONDOB: [facility] [id number] Number: Repository [address]Pfu: 330 [id number] [phone] (HP) Date:2018-02-25 02/25/2018 Secondary TARSHA A [place] Insurance:MEDICAIDPol ROBINSONDOB: [facility] icy Number: [id number] Hospital [id number] Repository Date:2018-02-25 02/25/2018 Tertiary NOT GIVENUNK [place] Insurance:SELF PAY [facility] Number: Effective Repository Date:2018-02-25 02/04/2018 TARSHA A Primary TARSHA A [place] [id number] Insurance:MEDICARE ROBINSONDOB: [facility] PART A [facility] [id number] Number: Repository [address]Cyz: 330 [id number] [phone] () Date:2017-08-06 02/04/2018 Secondary TARSHA A [place] Insurance:MEDICAIDPol ROBINSONDOB: [facility] icy Number: [id number] Hospital [id number] Repository Date:2017-08-06 02/04/2018 Tertiary NOT GIVENUNK [place] Insurance:SELF PAY [facility] Number: Effective Repository Date:2018-01-28 01/19/2018 TARSHA A Primary TARSHA A [place] [id number] Insurance:MEDICARE ROBINSONDOB: [facility] [id number] Number: Repository [address]Mze: 330 [id number] [phone] () Date:2017-08-06 01/19/2018 Secondary TARSHA A [place] Insurance:MEDICAIDPol ROBINSONDOB: [facility] ic Number: [id number] Hospital [id number] Repository Date:2017-08-06 01/19/2018 Tertiary NOT GIVENUNK [place] Insurance:SELF PAY [facility] Number: Effective Repository Date:2018-01-19 01/18/2018 TARSHA A Primary TARSHA A [place] [id number] Insurance:MEDICARE ROBINSONDOB: [facility] PART [facility] [id number] Number: Repository [address]Wth: 330 [id number] [phone] () Date:2018-01-15 01/18/2018 Secondary [place] A [place] Insurance:MEDICAIDPol ROBINSONDOB: [facility] icy Number: [id number] Hospital [id number] Repository Date:2018-01-15 01/18/2018 Tertiary NOT GIVENUNK [place] Insurance:SELF PAY [facility] Number: Effective Repository Date:2018-01-17 01/18/2018 TARSHA A Primary TARSHA A [place] [id number] Insurance:MEDICARE ROBINSONDOB: [facility] [id number] Number: Repository [address]Wvb: ([phone] [id number] [phone] () Date:2017-08-06 01/18/2018 Secondary TARSHA A [place] Insurance:MEDICAIDPol ROBINSONDOB: [facility] icy Number: [id number] Hospital [id number] Repository Date:2017-08-06 01/18/2018 Tertiary NOT GIVENUNK [place] Insurance:SELF PAY [facility] Number: Effective Repository Date:2017-08-06 01/15/2018 TARSHA A Primary TARSHA A [place] [id number] Insurance:MEDICARE ROBINSONDOB: [facility] [id number] Number: Repository [address]Nox: 330 [id number] [phone] () Date:2017-08-06 01/15/2018 Secondary T[place]SHA A [place] Insurance:MEDICAIDPol ROBINSONDOB: [facility] ic Number: [id number] Hospital [id number] Repository Date:2017-08-06 01/15/2018 Tertiary NOT GIVENUNK [place] Insurance:SELF PAY [facility] Number: Effective Repository Date:2017-08-06 01/15/2018 TARSHA A Primary TARSHA A [place] [id number] Insurance:MEDICARE ROBINSONDOB: [facility] [id number] Number: Repository [address]Slu: 330 [id number] [phone] () Date:2017-08-06 01/15/2018 Secondary TARSHA A [place] Insurance:MEDICAIDPol ROBINSONDOB: [facility] ic Number: [id number] Hospital [id number] Repository Date:2017-08-06 01/15/2018 Tertiary NOT GIVENUNK [place] Insurance:SELF PAY [facility] Number: Effective Repository Date:2018-01-15 01/04/2018 TARSHA A Primary TARSHA A [place] [id number] Insurance:MEDICARE ROBINSONDOB: [facility] [id number] Number: Repository [address]Vcp: 330 [id number] [phone] () Date:2018-01-04 01/04/2018 Secondary TARSHA A [place] Insurance:MEDICAIDPol ROBINSONDOB: [facility] icy Number: [id number] Hospital [id number] Repository Date:2018-01-04 01/04/2018 Tertiary NOT GIVENUNK [place] Insurance:SELF PAY [facility] Number: Effective Repository Date:2018-01-04 01/04/2018 TARSHA A Primary TARSHA A [place] [id number] Insurance:MEDICARE ROBINSONDOB: [facility] PART A [facility] [id number] Number: Repository [address]Oge: 330 [id number] [phone] () Date:2018-01-04 01/04/2018 Secondary TARSHA A [place] Insurance:MEDICAIDPol ROBINSONDOB: [facility] icy Number: [id number] Hospital [id number] Repository Date:2018-01-04 01/04/2018 Tertiary NOT GIVENUNK [place] Insurance:SELF PAY [facility] Number: Effective Repository Date:2018-01-04 11/30/2017 TARSHA A Primary TARSHA A [place] [id number] Insurance:MEDICARE ROBINSONDOB: [facility] PART A [facility] [id number] Number: Repository [address]Iux: 330 [id number] [phone] () Date:2017-11-21 11/30/2017 Secondary TARSHA A [place] Insurance:MEDICAIDPol ROBINSONDOB: [facility] ic Number: [id number] Hospital [id number] Repository Date:2017-11-21 11/30/2017 Tertiary NOT GIVENUNK [place] Insurance:SELF PAY [facility] Number: Effective Repository Date:2017-11-21 11/21/2017 TARSHA A Primary TARSHA A [place] [id number] Insurance:MEDICARE ROBINSONDOB: [facility] PART A [facility] [id number] Number: Repository [address]Ils: 330 [id number] [phone] (HP) Date:2017-11-21 11/21/2017 Secondary TARSHA A [place] Insurance:MEDICAIDPol ROBINSONDOB: [facility] icy Number: [id number] Hospital [id number] Repository Date:2017-11-21 11/21/2017 Tertiary NOT GIVENUNK [place] Insurance:SELF PAY [facility] Number: Effective Repository Date:2017-11-21 11/15/2017 TARSHA A Primary TARSHA A [place] [id number] Insurance:MEDICARE ROBINSONDOB: [facility] PART A [facility] [id number] Number: Repository [address]Dwp: 330 [id number] [phone] () Date:2017-11-12 11/15/2017 Secondary TARSHA A [place] Insurance:MEDICAIDPol ROBINSONDOB: [facility] Number: [id number] Hospital [id number] Repository Date:2017-11-12 11/15/2017 Tertiary NOT GIVENUNK [place] Insurance:SELF PAY [facility] Number: Effective Repository Date:2017-11-12 10/24/2017 TARSHA A Primary TARSHA A [place] [id number] Insurance:MEDICARE ROBINSONDOB: [facility] PART A [facility] [id number] Number: Repository [id number]: 330 [id number] [phone] () Date:2017-10-24 10/24/2017 Secondary TARSHA A [place] Insurance:MEDICAIDPol ROBINSONDOB: [facility] ic Number: [id number] Hospital [id number] Repository Date:2017-10-24 10/24/2017 Tertiary NOT GIVENUNK [place] Insurance:SELF PAY [facility] Number: Effective Repository Date:2017-10-24 10/24/2017 TARSHA Primary TARSHA [place] [id number] Insurance:MEDICARE ROBINSONDOB: [facility] PART A [facility] [id number] Number: Repository [id number]: 330 [id number] [phone] (HP) Date:2017-10-05 10/24/2017 Secondary TARSHA [place] Insurance:MEDICAIDPol ROBINSONDOB: [facility] icy Number: [id number] Hospital [id number] Repository Date:2017-10-05 10/24/2017 Tertiary NOT GIVENUNK [place] Insurance:SELF PAY [facility] Rep[facility] Date:2017-10-22 08/06/2017 TARSHA Primary TARSHA [place] [id number] Insurance:MEDICARE ROBINSONDOB: [facility] PART A [facility] [id number] Number: Repository [id number]: 330 [id number] [phone] (HP) Date:2017-07-10 08/06/2017 Secondary TARSHA [place] Insurance:MEDICAIDPol ROBINSONDOB: [facility] icy Number: [id number] Hospital [id number] Repository Date:2017-07-10 08/06/2017 Tertiary NOT GIVENUNK [place] Insurance:SELF PAY [facility] Number: Effective Repository Date:2017-07-24 07/23/2017 TARSHA Primary TARSHA [place] [id number] Insurance:MEDICARE ROBINSONDOB: [facility] A [facility] [id number] Number: Repository [id number]: 330 [id number] [phone] () Date:2017-07-23 07/23/2017 Secondary TARSHA [place] Insurance:MEDICAIDPol ROBINSONDOB: [facility] ic Number: [id number] Hospital [id number] Repository Date:2017-07-23 07/23/2017 Tertiary NOT GIVENUNK [place] Insurance:SELF PAY [facility] Number: Effective Repository Date:2017-07-23 05/21/2017 TARSHA Primary TARSHA [place] [id number] Insurance:MEDICARE ROBINSONDOB: [facility] PART A [facility] [id number] Number: Repository [id number]: 330 [id number] [phone] (HP) Date:2017-05-21 05/21/2017 Secondary TARSHA [place] Insurance:MEDICAIDPol ROBINSONDOB: [facility] icy Number: [id number] [facility] [id number] Repository Date:2017-05-21 05/21/2017 Tertiary NOT GIVENUNK [place] Insurance:SELF PAY [facility]: Effective Repository Date:2017-05-21
== END ==
PROVIDERS: Family Provider Family Medicine Geriatric Medicine; PCP Family Medicine Geriatric Medicine; Visit Provider Nurse Practitioner Acute Care
DX: G47.33 Obstructive sleep apnea (adult) (pediatric) (principal)
CPT/HCPCS: 95811

== ENCOUNTER 2018-05-12 10:17 | Emergency (ER) | payer MEDICARE, MEDICAID, SELFPAY ==
[2018-04-04 09:43] VITALS: BMI 27.4
[2018-05-12 10:18] VITALS: BP 114/76; PULSE 88; RESP 17; TEMP 36.6; O2SAT 93; BMI 26.5
--- NOTE | 2018-05-12 10:25 | CT_ITS ---
STUDY: CT CHEST WITHOUT CONTRAST REASON FOR EXAM: Female, 63 years old. COPD. Questionable mass. RADIATION DOSAGE (If Supplied By Facility): CTDIvol = ( 12.22 ) mGy, DLP = ( 452.60 ) mGycm TECHNIQUE: Transaxial imaging was performed without the administration of intravenous contrast material. Individualized dose optimization techniques were used for this CT. COMPARISON: 11/30/2017. FINDINGS: There is a stable 5 mm noncalcified pleural-based nodule in the superior segment of the right lower lobe unchanged since prior examination seen on image 52 series 4. Vague 2 mm nodule is again seen in the left upper lobe seen on image 46 series 4. There again is a 7 mm pleural-based nodule in the left lower lobe unchanged since the prior exam seen on image 70 series 4. There is minimal stranding in the left lower lobe on image 89 series 4 which could be due to mild atelectasis. Otherwise no new nodules are seen. There is no demonstrated pleural abnormality. Normal heart and pericardium. There again is an enlarged node in the aortopulmonic window measuring about 1.9 cm unchanged since the prior examination. Normal hilar regions. Few nodes are seen in the right axilla again unchanged. Normal unenhanced pulmonary arteries. There is atherosclerotic calcification of the aortic arch with tortuosity and elongation of the aortic arch and descending thoracic aorta. There is a striations of the thoracic vertebra probably due to osteopenia. There is no demonstrated abnormality of the visualized upper abdomen. CT/Chest without Contrast IMPRESSION: 1. Few small pleural-based nodule is as described above unchanged since the prior examination. 2. No new infiltrate is seen. 3. Stable enlarged mediastinal nodes. Electronically Signed: Cristofer Sharif MD at 12:04 EST Tel , Service support ,
--- NOTE | 2018-05-12 10:26 | EKG12_ITS ---
Test Reason : COUGH Blood Pressure : / mmHG Vent. Rate : 078 BPM Atrial Rate : 078 BPM P-R Int : 128 ms QRS Dur : 078 ms QT Int : 370 ms P-R-T Axes : 073 074 064 degrees QTc Int : 421 ms Normal sinus rhythm Normal ECG Confirmed by NICOLA MENDEZ, DIANE ([id number]), associate editor CONCHA ROMERO ([id number]) on 05/15/2018 1:39:59 PM Referred By: SILVIA Confirmed By:DIANE PETERSEN MD
--- NOTE | 2018-05-12 10:28 | ED.VISSUMM ---
- ER Visit Summary Date of Service: 05/12/18 Chief Complaint: Shortness of breath History of Present Illness: The patient is a 63 F who presents with shortness of breath for about a week and a half. She has COPD and did not want to have antibiotics that she did not get it checked out. She had a fever which seems to have subsided but her breathing difficulties continued. She has no chest pain. She has no calf pain or lower leg edema. She has no travel history. She has a cough is productive but white. This is changed from her usual cough which is dry. Physical Examination: Not appear in acute distress. She is speaking in full sentences Moist mucous membranes, no obvious facial deformity No C-spine tenderness supple neck. Regular rate and rhythm without any obvious murmurs Diffuse wheezing throughout, prolonged expirations. Abdomen soft and nontender no guarding or rebound Moves all extremities without any difficulty or pain. Skin does not show any obvious rashes or lesions, no trauma. Alert oriented ?3 with no gross focal deficit Emergency Department Course and Treatment: Her previous x-ray showed a suspicious lesion, therefore I did a CT of the chest, this shows chronic nodules without any change. Patient is reassured. I reevaluate her after nebulizers and she significantly improved. I will discharge her after I am [place] and I will give her antibiotics for home. She meets criteria since she has COPD and her sputum has changed. Disposition: Discharge stable condition Impression: COPD exacerbation This note was generated with Pager[employer] dictation software. It may contain incorrect words, spelling, and punctuation that were not noted in review of the chart prior to signing ED Disposition - Plan for ED Patient: Disposition: Home or Assisted Living Instructions: ED COPD Flare Prescriptions: Azithromycin 250 mg PO DAILY #6 tab Referrals: Jose Edwards Chi, MD [Primary Care Provider] - 3-5 Days
[2018-05-12 10:40] VITALS: PULSE 116; RESP 22
[2018-05-12] MEDS: Albuterol 2.5 MG/3 ML VIAL.NEB. INHALATION ×3 (10:40)
[2018-05-12] MEDS: Ipratropium/Albuterol Sulfate 3 ML AMPUL.NEB INHALATION (10:40)
[2018-05-12] MEDS: MethylPREDNISolone 125 MG/2 ML Vial IV (10:45)
[2018-05-12 10:48] LABS: Absolute Lymphocyte Count 2.02 X10^3/ul (0.83-4.51); Absolute Neutrophil Count 4.4 X10^3/uL (2.0-7.7); Basophil# 0.07 X10^3/uL; Basophil% 0.8 % (0-1); Eosinophil# 1.43 X10^3/uL; Eosinophils% 16.6 % (0-5); Hematocrit 41.7 % (37-47); Hemoglobin 13.7 g/dl (12.0-15.0); Lymphocyte # 2.02 X10^3/ul (4.0); Lymphocyte % 23.5 % (19-41); Mean Corp Hgb Conc 32.9 g/gl (32-36); Mean Corpuscular Hgb 29.7 pg (27.0-32.0); Mean Corpuscular Volume 90.5 fL (81-99); Mean Platelet Vol. 8.7 fl (6.2-12.0); Monocyte# 0.62 X10^3/uL; Monocyte% 7.2 % (0-10); Neutrophil # 4.42 X10^3/uL (2.7-7.7); Neutrophil % 51.4 % (47-70); Platelet Count 329 K/mm3 (150-450); RBC Distribution Width CV 12.8 % (11.6-14.6); RBC Distribution Width SD 42.2 fl (35.1-43.9); Red Blood Count 4.61 M/mm3 (4.2-5.4); White Blood Count 8.6 K/mm3 (4.4-11.0)
[2018-05-12 10:49] LABS: POSITIVE COUNT NO; POSITIVE DIFFERENTIAL NO; POSITIVE MORPHOLOGY NO
[2018-05-12 11:04] LABS: Anion Gap 9 (5-15); BUN 10 mg/dL (7-18); BUN/Creat Ratio 12.8 RATIO (10-20); Calcium,Total 9.5 mg/dL (8.5-10.1); Chloride 107 mmol/L (98-107); Creatinine, Serum 0.78 mg/dL (0.55-1.02); EST Glomerular Filtration Rate 79 mL/min (>60); Est Glom Filt Rate - Afr Amer 95 mL/min (>60); Estimated Creatinine Clearance 61.07 ml/min; Glucose 98 mg/dL (74-106); Potassium 4.2 mmol/L (3.5-5.1); Sodium Level 141 mmol/L (136-145)
[2018-05-12 11:30] VITALS: BP 129/75; PULSE 104; PULSE 106; RESP 16; RESP 21; TEMP 36.6; O2SAT 91; O2SAT 93
[2018-05-12 12:00] VITALS: PULSE 132; RESP 20; TEMP 37.2; O2SAT 93
[2018-05-12] MEDS: Triamcinolone Acetonide 40 MG/ML Vial IM (12:37)
[2018-05-12 12:42] VITALS: BP 131/77; PULSE 115; RESP 18; O2SAT 95
[2018-05-12 12:57] VITALS: BP 131/77; PULSE 130; RESP 16; O2SAT 93
== END 2018-05-12 13:03 | disposition home or self-care (01) ==
PROVIDERS: Emergency Provider Emergency Medicine; Family Provider Family Medicine Geriatric Medicine; PCP Family Medicine Geriatric Medicine
DX: J44.1 Chronic obstructive pulmonary disease with (acute) exacerbation (principal); I44.7 Left bundle-branch block, unspecified; Z79.02 Long term (current) use of antithrombotics/antiplatelets; Z79.899 Other long term (current) drug therapy; Z87.891 Personal history of nicotine dependence
CPT/HCPCS: 71250; 80048; 84484; 85025; 93005; 94640; 96372; 96374; 99284; A4216

== ENCOUNTER → 2018-05-21 09:25 | Outpatient (CLI) | payer MEDICARE, MEDICAID, SELFPAY ==
[2018-05-12 10:18] VITALS: BMI 26.5
--- NOTE | 2018-05-21 11:28 | PR.HP_ITS ---
History of Present Illness Arrival date:: 05/21/18 Arrival time:: 09:00 Date of Referral:: 04/04/18 Date of Evaluation: 05/21/18 - patient was rescheduled by pt request Referring Physician: Dr. Anthony Jalloh Primary Diagnosis: STAE II COPD MODERATE, PHILIP mMRC Breathless Scale: When is the patient short of breath? Y/N Grade: Description of Breathlessness: 0 I only get breathless with strenuous exercise. 1 I get short of breath when hurrying on level ground or walking up a slight hill. 2 On level ground, I walk slower than people of the same age because of breathless, or have to stop for breath when walking at my own pace. 3 I stop for breath after walking 100 yards or after a few minutes on level ground. 4 I am too breathless to leave the house or I am breathless when dressing. Home Medications: Home Medications Clopidogrel Bisulfate [Plavix] 75 mg PO DAILY 10/23/15 fluticasone 200 mcg-vilanterol 25 mcg/dose powder for inhalation 1 inh IN HALATION QDAY 03/12/17 albuterol sulfate 2.5 mg/3 mL (0.083 %) solution for nebulization 2.5 mg INHALATION Q4H PRN #120 vial 10/24/17 albuterol sulfate HFA 90 mcg/actuation aerosol inhaler 1 - 2 puff INHALATION Q4H PRN PRN #1 inhaler 10/24/17 atorvastatin 80 mg tablet 80 mg PO QHS 90 Days #90 tab 02/25/18 tiotropium bromide 18 mcg capsule with inhalation device 1 inh INHALATION DAILY 30 Days #30 inh 02/25/18 venlafaxine 75 mg tablet 75 mg PO DAILY 30 Days #60 tab 02/25/18 Azithromycin 250 mg PO DAILY #6 tab 05/12/18 Doxycycline [Vibramycin] 100 mg PO BID 05/21/18 Allergies/Adverse Reactions: Allergies codeine Allergy (Verified 05/12/18 10:19) Itching morphine Allergy (Verified 05/12/18 10:19) Itching doxycycline Adverse Reaction (Severe, Verified 05/12/18 10:19) severe headaches and muscle spasms to the chest - Secretions Cough:: Yes AM: Yes A.T.C.: Yes Hx of Sleep Apnea: Yes Do you snore loudly (louder than talking or can be heard through closed doors)?: Yes - BiPAP at HS. History of Hypertension (for STOP score): Yes Medical Utilization Do you use a peak flow meter at home?: No Do you use a spacer device with your inhalers?: No Number of hospital visits in the last year?: 0 Number of emergency room visits in the last year?: 2 - Urgent Care x 2 Do you see your physician on a regular schedule?: Yes How often?: PCP 6 months; 3-6 months Advanced Directives - Advanced Directives Power of Automatic Dry Starch Operator: No - Daughter Precious has paperwork to get filed. 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 Sister Diabetes CAD (coronary artery disease) Sister Heart disease Brother Respiratory abnormalities - Current/ Previous Services Pulmonary Rehab:: No Social History - Smoking History Smoking Status: Former smoker Years Smokin Packs Smoked per Day: 2 Hx Smoking Cessation Date: 2013 Hx Tobacco Use: Yes Hx Smoking Exposure: Yes - Alcohol Use Alcohol Usage: No - Substance Abuse Hx Substance Use: No - Occupation Occupation (List type of work in comments):: Retired - Hobbies, Recreation, Social Activities Hobbies: Other - computer games Recreational Activities: I am able to engage in all my recreational activities Functioning ADL/IADL - Current Ability Current Ability: Independent Self-Care (e.g.,grooming, dressing, & bathing), Independent Ambulation, Independent Transfer, Independent Household tasks (e.g., light meal prep, laundry, shopping) - Pt Functioning Prior to Problem Prior Functioning: Self-Care (e.g.,grooming, dressing, & bathing): Independent, Ambulation: Independent, Transfer: Independent, Household tasks (e.g., light meal prep, laundry, shopping): Independent Social Environment - Status Marital Status: - Current Living Arrangements Living Environment:: Spouse - Children How many children do you have?: 3 Do any of your children live nearby?: Yes - Safety Do you feel safe in your surroundings?: Yes - Assistance Do you need any assistance at home?: none Review of Systems Review of Systems: Right click = Denies ([place]). Left click = Reports ([place]) Respiratory: Reports: SOB upon Exertion, Wheezing, Appetite, Normal, Dizziness/Lightheadedness, Fatigue, Sleep, Normal - very irregular but normal, trying to get used to BIPAP.. Denies: Cough, Hemoptysis, SOB at Rest Is Patient Pain Free?: Yes Pain Location: none Risk Factor Assessment - Chief Complaint Chief Complaint: Patient is a patient of Dr. Anthony Jalloh who presents to pulmonary rehab today following recent PULMONARY visit. She has stage 2 COPD Moderate by GOLD standard. - Vital Signs Temperature: 98.7 F Pulse Rate: 63 Pulse Rhythm: Regular Respiratory Rate: 16 Pulse Ox: 95 Blood Pressure: 109/64 Nailbeds:: pink - Diabetes Nutrition Referral for Diabetes: No - Obesity Height: 5 ft 3 in Weight:: 155 lb Weight in Pounds: 155.0 lbs Weight Source: Estimated by Patient Body Mass Index (BMI): 27.4 Nutritional Referral for Obesity: No - Physical Activity Physical Inactivity: None - Risk Stratification Risk Guidelines: Lowest Risk: Risk Factor for Smoking, Risk Factor for Dyslipidemia, Risk Factor for Diabetes, Risk Factor for Obesity, Risk Factor for Depression, Moderate Risk: Risk Factor for Hypertension, Highest Risk: Risk Factor for Sedentary Lifestyle - For Smoking Smoking Risk Guidelines: Smoking Low Risk: None or quit greater than 6 months ago. Smoking Moderate Risk: Smoker or quit 6 months or less ago. Smoking High Risk: Smoker - For Dyslipidemia Dyslipidemia Risk Guidelines: Low Risk: Moderate Risk: High Risk: 15-25% fat 25.1-29% fat >/= 30% fat. <7% sat fat 7-9% sat fat >9% sat fat. <150 mg chol 150-299 mg chol >/= 300 mg chol. LDL <100 LDL 100-129 LDL >/= 130. Chol/HDL ratio <5.0 Chol/HDL ratio 5.0-6.0 Chol/HDL ratio >6.0. Triglycerides <100 Triglycerides 100- 149 Triglycerides >/= 150 - For Diabetes Mellitus Diabetes Risk Guidelines: Diabetes Low Risk: HgA1c <6.5% and/or FBG <120. Diabetes Moderate Risk: HgA1c 6.6-7.9% and/or FBG 120-180. Diabetes High Risk: HgA1c >/= 8% and/or FBG >180 - For Obesity/Overweight Obesity/Overweight Risk Guidelines: Obesity Low Risk: BMI <25.0. Obesity Moderate Risk: BMI 25-29.9. Obesity High Risk: BMI >/= 30.0 - For Hypertension Hypertension Risk Guidelines: Hypertension Low Risk: Systolic <120 and Diastolic <80. Hypertension Moderate Risk: Systolic 120-139 and Diastolic 80-89. Hypertension High Risk: Systolic >/= 140 and Diastolic >/= 90 - For Sedentary Lifestyle Sedentary Lifestyle Risk Guidelines: Sedentary Lifestyle Low Risk: >/= 1,500 kcal/week. Sedentary Lifestyle Moderate Risk: 700-1,499 kcal/week. Sedentary Lifestyle High Risk: < 700 kcal/week - For Depression Depression Risk Guidelines: Depression Low Risk: Not clinically depressed. Depression Moderate Risk: Mildly depressed. Depression High Risk: Clinically depressed Motivation - Motivation to Participate On a scale of 1 to 10, how prepared are you to commit to attending program?: 5 What do you see as barriers to successfully being able to complete the program?: weather What do you see as the benefits of succesfully completing the program? In other words, what do you hope to get out of participating in the program?: being able to breathe better Are there issues you are dealing with that will interfere with completing the program?: none Do you have a spouse or signficant other, family or friends who will help support you to complete the program?: yes Diagnostic Data Review - Pulmonary Function Test FEV1:: 1.13 - . FVC:: 2.29 FEV1/FVC%:: 49 Gold Classification: GOLD class II(mod. COPD)with FEV1/FVC <70%, 50%</= FEV1< 50% predicted
[2018-05-21 11:39] VITALS: BP 109/64; PULSE 63; RESP 16; TEMP 37.1; O2SAT 95; BMI 27.4
--- NOTE | 2018-05-21 11:40 | PR.DATECOV_ITS ---
Dates of Coverage Times for Dates Of Coverage; All dates of coverage are for physician supervision/medical front desk specialist for during the times of 08:00 AM through 4:30 PM. Effective Dec 08, 2012 our hours will be changing to 8:00 to 4:30 on Sunday, Sunday and Sunday. First Date of the Month: 05/21/18 Last Date of the Month: 06/06/18
--- NOTE | 2018-05-21 11:40 | PCM.PR.TP ---
General Information - General Information Admitting Diagnosis: COPD Gold Classification:: GOLD 2: Moderate - PFT FEV1:: 1.13 FVC:: 2.29 FEV1/FVC%:: 49 - Education/Goals Barriers to Learning: Vision Impairment Individual Counseling: Initial Assessment: Dyspnea control techniques at rest, activity, and ADLs, Exacerbation prevention & management, Home exercise plan & guidelines Patient Goals: Breathe better: Initial Assessment, Increase endurance/stamina: Initial Assessment, Control panic/anxiety: Initial Assessment, Symptom management: Initial Assessment Exercise - Initial Assessment - Visit Date of Eval: 05/21/18 - Problem/Goals Problems: Deconditioning, No regular exercise, Knowledge deficit exercise guidelines, Knowledge deficit exercise safety Goals:: Aerobic exercise 30-60 mins x 9 weeks, Resistance: 2-3x/weekly - Exercise Prescription Mode:: Treadmill, Airdyne, NuStep Frequency (x/week): 3 Duration:: 30-45 MET LEVEL:: 2.5 Exercise Progression: 0.5-1.0 MET/week RPE 11-14 - Plan Plan and Plan to Review:: Benefits of exercise, Core components of exercise, How to measure dyspnea level, How to monitor dyspnea level, Exercise intensity, Exercise safety guideline, Home exercise guidelines, Conor: 3-4/-13 Disease Management - Initial - Problems/Goals-Medications Medication Problems:: Incorrect inahled Rx use, technique Medication Goals: Adherence to prescribed medications, Correct technique/timing & care of MDI, DPI, nebulizer, and spacer. - Problems/Goals-Bronchial Hygiene Bronchial Hygiene Problems:: Ineffective secretion clearance, Respiratory infection Prevention/Management Bronchial Hygiene Goals:: Pt demonstrates effective cough, effective secretion clearance., Pt describes signs and symptoms of infection. - Initial Assessment SpO2:: 95 FiO2:: 21 Medications: Yes MDI, No Spacer Patient Reports:: Non-productive cough - Plans Hypoxemia Plan:: Monitor SpO2 rest & with exercise, Train appropriate O2 use with exercise Reviewed prescribed medications:: Purpose, Schedule, Side effects, Importance of compliance Instruct correct technique/timing & care:: MDI, DPI, Nebulizer, Return demo use of inhaler Bronchial Hygiene Plan: Controlled cough, Vibratory PEP device, Hydration, Hand hygiene Psychosocial - Initial Assess - Problems/Goals Problems: Depression, Anxiety, Panic, Impaired Q.O.L. Psychosocial Goals: Improved Q.O.L. - Psychosocial Test Depression:: Anxiety, Panic, Impaired QOL Referred to MD for counseling:: No - Plan Reviewed screening results: No Instructions given regarding:: Benefits of exercise, Relaxation techniques, Training in coping strategies Tobacco - Initial Assessment - Program Goals Tobacco Program Goals: Complete smoking cessation. Attend education classes. Improve Knowledge Test score - Stage of Change Stages of Change:: Contemplate - Learning Barriers Learning Barriers: Vision, Ready to Learn - Family Support Do you have family support?: Yes - Tobacco Use Tobacco Use: Non-smoker Do you use smokeless tobacco?: No - Intervention Smoking Cessation Referral:: No Individual Education/Counseling:: No Education Schedule Given:: Yes - Education Gave Education Materials For:: Pulmonary Disease, Risk Factors, Breathing Techniques, Medical Compliance, Pulmonary A&P, Exacerbation Signs & Symptoms, Stress & Relaxation Nutrition/Wt Mgmt - Initial - Problems/Goals Problems: Overweight Goals: Wt Loss 1-2 lbs per week - Weight Management Knowledge Deficit Management of:: Overweight Admit Height:: 5 ft 3 in Admit Weight:: 155 lb Admit BMI:: 27.4 - Diabetes Diabetes:: No Insulin: No Do you monitor your blood sugar at home?: No - Intervention Referral to dietitian:: No Referral to Diabetic Clinic:: No Will attend diet classes:: Yes - Plan Nutrition Plan: Yes Review BMI or WC & identify target wt & strategies for wt control, Yes Nutrition education class:, Yes Education re: Need for ongoing weight monitoring, Yes Physical activity log: Patient Health Questionnaire Initial Assessment 2. Feeling down, depressed, or hopeless: Several days 3. Trouble falling or staying asleep, or sleeping too much: Nearly every day 4. Feeling tired or having little energy: Nearly every day 5. Poor appetite or overeating: Nearly every day 6. Feeling bad about yourself -- or that you are a failure or have let yourself or your family down: Several days 7. Trouble concentrating on things, such as reading the newspaper or watching television: Not at all 8. Moving or speaking so slowly that other people could have noticed. Or the opposite - being so fidgety or restless that you have been moving around a lot more than usual: Not at all 9. Thoughts that you would be better off , or of hurting yourself in some way: Not at all How difficult have these problems made it for you to do your work, take care of things at home, or get along with other people?: Somewhat difficult Total Score: 11 COPD Knowledge Test Initial COPD is a lung disease that:: Makes it hard to breathe & gets worse over time In the [place] the term COPD describes 2 main lung conditions:: Emphysema & chronic bronchitis The most common lung irritant that causes COPD is:: Cigarette smoke Common signs and symptoms of COPD include:: An ongoing cough/cough that produces a large amount of mucus, & SOB If you have COPD, what steps can you take?: All of the above Swelling of the ankles is common in COPD:: False Fatigue [tiredness] is common in COPD:: True Wheezing is common in COPD:: True Crushing chest pain is common in COPD:: False Rapid weight loss is common in COPD:: True Breathlessness is a normal response to exercise: True Exercise should be avoided if it makes you short of breath: True All bronchodilators act within 10 minutes: True A spacer device increases the medication to the lungs: True Annual flu vaccine is recommended for pts w/lung disease: True COPD Knowledge Test Total Score:: 12 COPD Assessment Test [CAT] - Questions Never cough = 0, Cough all the time = 5: 4 No phlegm = 0, Chest full of phlegm = 5: 4 No chest tightness = 0, Chest very tight = 5: 3 No breathless w/exertion = 0, Very breathless w/exertion = 5: 5 No limitations w/activity = 0, Very limited w/activity = 5: 4 Confident leaving home = 0, Not at all confident = 5: 4 Sleep soundly = 0, Don't sleep soundly = 5: 1 Lots of energy = 0, No energy at all = 5: 5 Total CAT score:: 30 Self-Efficacy Initial Assessment We would like to know how confident you are in doing certain activities. Please select your confidence level for:: Select your confidence level for the following using the scale 1-10 where 1 is not at all confident and 10 is totally confident. Your score is the average of all 6 responses. Fatigue: How confident are you that you can keep the fatigue caused by your disease from interfering with the things you want to do? Select Number: 2 Physical Discomfort or Pain: How confident are you that you can keep the physical discomfort or pain of your disease from interfering with the things you want to do? Select Number: 3 Emotional Distress: How confident are you that you can keep the emotional distress caused by your disease from interfering with the things you want to do? Select Number: 3 Other Symptoms or Health Problems: How confident are you that you can keep other symptoms or health problems from interfering with the things you want to do? Select Number: 3 Different Tasks and Activities: How confident are you that you can do the different tasks and activities needed to manage your health condition so as to reduce your need to see a doctor? Select Number: 6 Medication: How confident are you that you can do things other than just taking medication to reduce how much your illness affects your everyday life? Select Number: 6 Total Score:: 3 Nutrition Survey - Nutrition Survey Initial Have you lost >10 lbs over the past 2 months without trying?: No Are you following a special diet at home for diabetes, low fat, or low salt?: No Are you interested in meeting with a dietitian for help understanding your diet?: No Do you eat less than 3 meals a day?: No Do you eat fatty meats (hood, sausage, ribs, etc), fried foods, desserts, large amounts of salad dressings, margarine, butter, or cheese most days?: No Do you have food allergies? [Enter types in comment field]: No Do you eat in restaurants more than 3 times a week?: No Do you season food with salt, seasoning salt, or garlic salt?: Yes Do you used canned, boxed, frozen meals, or soups, seasoning packets?: Yes Total Score:: 2
[2018-05-21 14:06] VITALS: O2SAT 95; BMI 27.4
== END ==
PROVIDERS: Family Provider Family Medicine Geriatric Medicine; PCP Family Medicine Geriatric Medicine; Referring Provider Internal Medicine Critical Care Medicine; Visit Provider Internal Medicine Critical Care Medicine
DX: J44.9 Chronic obstructive pulmonary disease, unspecified (principal)

== ENCOUNTER 2018-06-05 09:30 | Outpatient (RCR) | payer MEDICARE, SELFPAY ==
[2018-05-21 14:06] VITALS: BMI 27.4
== END 2018-06-06 23:59 ==
LOC: PR 09:30
PROVIDERS: Family Provider Family Medicine Geriatric Medicine; PCP Family Medicine Geriatric Medicine; Referring Provider Internal Medicine Critical Care Medicine; Visit Provider Internal Medicine Critical Care Medicine
DX: J44.9 Chronic obstructive pulmonary disease, unspecified (principal)
CPT/HCPCS: 97150; G0424

== ENCOUNTER 2018-06-07 11:27 | Outpatient (RCR) | payer MEDICARE, MEDICAID, SELFPAY ==
[2018-05-21 14:06] VITALS: BMI 27.4
--- NOTE | 2018-06-28 12:48 | PCM.PR.TP ---
Exercise - 30-Day Assessment - Physician Prescribed Exercise Modalities: Treadmill, Airdyne, NuStep, SciFit Frequency (days/week): 3 Duration (Minutes):: 30-45 Intensity: 60-80% age predicted maximum heart rate reserve Aerobic Exercise [30-60 min 3-7x/week]:: Not progressing Target heart rate: 109-117 Conor-14 METs - Progression: 0.5-1.0 MET, RPE 11-14 WEEK: 2.5 - patient has only attended 3 of scheduled 14 sessions. She shows little motivation. - Home Exercise Home Exercise:: No Disease Management - 30-Day - Hypoxemia Reassessment: Demonstrates knowledge of O2 Rx with exercise - Medications Medication list reviewed:: Yes Taking medications 100% of the time:: Approximately 25% of the time Medication reassessment: No Pt demonstrates correct technique timing for MDI, No Pt demonstrates correct technique timing for DPI, No Pt demonstrates correct technique timing for NEB, No Pt demonstrates correct technique timing for spacer - Bronchial Hygiene Bronchial Hygiene Plan: Yes Pt demo correct for hand hygiene, No Pt demonstrates correctly for effective cough, No Pt demo correct for evalute sputum, No Pt demo correct for verbalize when to call MD Tobacco - 30-Day Assessment - Program Goals Tobacco Program Goals: Complete smoking cessation. Attend education classes. Improve Knowledge Test score - Learning Barriers Learning Barriers: Declined education - Family Support Do you have family support?: Yes - Tobacco Use Tobacco Use: Non-smoker - Intervention Smoking Cessation Referral:: No Individual Education/Counseling:: No Education Schedule Given:: Yes - Education Gave Education Materials For:: Pulmonary Disease, Breathing Techniques Nutrition/Wt Mgmt - 30-Day - Weight Management Weight:: 155 lb - 06/07/18 Patient Health Questionnaire 30-Day Re-eval Assessment 1. Little interest or pleasure in doing things: Not at all - DC has been unable to reassess the patient due to lack of regular attendance Total Score: 0 COPD Assessment Test [CAT] - Questions Never cough = 0, Cough all the time = 5: 0 - DC has been unable to reassess the patient due to lack of regular attendance Self-Efficacy 30-Day Re-eval Assessment We would like to know how confident you are in doing certain activities. Please select your confidence level for:: Select your confidence level for the following using the scale 1-10 where 1 is not at all confident and 10 is totally confident. Your score is the average of all 6 responses. Fatigue: How confident are you that you can keep the fatigue caused by your disease from interfering with the things you want to do? Select Number: 1 - DC has been unable to reassess the patient due to lack of regular attendance Physical Discomfort or Pain: How confident are you that you can keep the physical discomfort or pain of your disease from interfering with the things you want to do? Emotional Distress: How confident are you that you can keep the emotional distress caused by your disease from interfering with the things you want to do? Other Symptoms or Health Problems: How confident are you that you can keep other symptoms or health problems from interfering with the things you want to do? Different Tasks and Activities: How confident are you that you can do the different tasks and activities needed to manage your health condition so as to reduce your need to see a doctor? Medication: How confident are you that you can do things other than just taking medication to reduce how much your illness affects your everyday life?
== END 2018-07-07 23:59 ==
LOC: PR 11:27
PROVIDERS: Family Provider Family Medicine Geriatric Medicine; PCP Family Medicine Geriatric Medicine; Referring Provider Internal Medicine Critical Care Medicine; Visit Provider Internal Medicine Critical Care Medicine
DX: J44.9 Chronic obstructive pulmonary disease, unspecified (principal)
CPT/HCPCS: 97150; G0424

== ENCOUNTER 2018-07-08 08:46 | Outpatient (RCR) | payer MEDICARE, MEDICAID, SELFPAY ==
[2018-07-03 17:14] VITALS: BMI 27.4
== END 2018-08-06 23:59 ==
LOC: PR 08:46
PROVIDERS: Family Provider Family Medicine Geriatric Medicine; PCP Family Medicine Geriatric Medicine; Referring Provider Internal Medicine Critical Care Medicine; Visit Provider Internal Medicine Critical Care Medicine
DX: J44.9 Chronic obstructive pulmonary disease, unspecified (principal)
CPT/HCPCS: 97150; G0424

== ENCOUNTER → 2018-08-06 11:59 | Outpatient (CLI) | payer MEDICARE, MEDICAID, SELFPAY ==
[2018-08-06 11:18] VITALS: BMI 29.4
[2018-08-06 12:59] LABS: Absolute Lymphocyte Count 1.69 X10^3/ul (0.83-4.51); Absolute Neutrophil Count 2.7 X10^3/uL (2.0-7.7); Basophil# 0.06 X10^3/uL; Basophil% 1.1 % (0-1); Eosinophil# 0.66 X10^3/uL; Hematocrit 41.5 % (37-47); Lymphocyte # 1.69 X10^3/ul (4.0); Lymphocyte % 30.6 % (19-41); Mean Corp Hgb Conc 33.7 g/gl (32-36); Mean Corpuscular Volume 89.1 fL (81-99); Mean Platelet Vol. 8.1 fl (6.2-12.0); Monocyte# 0.39 X10^3/uL; Monocyte% 7.1 % (0-10); Neutrophil % 48.8 % (47-70); Platelet Count 288 K/mm3 (150-450); RBC Distribution Width CV 13.5 % (11.6-14.6); Red Blood Count 4.66 M/mm3 (4.2-5.4); White Blood Count 5.5 K/mm3 (4.4-11.0)
[2018-08-06 13:04] LABS: POSITIVE COUNT NO; POSITIVE DIFFERENTIAL NO; POSITIVE MORPHOLOGY NO
[2018-08-13 07:06] LABS: Alternaria tenuis <0.10 kU/L (Class 0); Ash, White <0.10 kU/L (Class 0); Aspergillus fumigatus <0.10 kU/L (Class 0); Bermuda Grass <0.10 kU/L (Class 0); Birch <0.10 kU/L (Class 0); Black Walnut <0.10 kU/L (Class 0); Cat Hair / Dander,Stand <0.10 kU/L (Class 0); Cedar, Mountain <0.10 kU/L (Class 0); Cladosporium herbarum <0.10 kU/L (Class 0); Cockroach, American <0.10 kU/L (Class 0); Cottonwood <0.10 kU/L (Class 0); D farinae Mite <0.10 kU/L (Class 0); D pteronyssinus <0.10 kU/L (Class 0); Dog Epithelia <0.10 kU/L (Class 0); Elm, American White <0.10 kU/L (Class 0); Immunoglobulin E 76 IU/mL (6-495); Maple/Box Elder <0.10 kU/L (Class 0); Mulberry, White <0.10 kU/L (Class 0); Oak, White <0.10 kU/L (Class 0); Pecan <0.10 kU/L (Class 0); Penicillium Notatum <0.10 kU/L (Class 0); Pigweed, Rough <0.10 kU/L (Class 0); Ragweed, Short/Common <0.10 kU/L (Class 0); Russian Thistle <0.10 kU/L (Class 0); Sheep Sorrel <0.10 kU/L (Class 0); Sycamore, American <0.10 kU/L (Class 0); Timothy Grass <0.10 kU/L (Class 0)
[2018-08-13 17:06] LABS: Mouse Urine <0.10 kU/L (Class 0)
[2018-08-14 07:12] LABS: Aspirgillus flavus Negative (Neg:<1:1); Aspirgillus fumigatus Negative (Neg:<1:1); Aspirgillus niger Negative (Neg:<1:1)
[2018-08-14 12:03] LABS: Immunoglobulin E 73 IU/mL (6-495)
== END ==
PROVIDERS: Family Provider Family Medicine Geriatric Medicine; PCP Family Medicine Geriatric Medicine; Referring Provider Internal Medicine Critical Care Medicine; Visit Provider Internal Medicine Critical Care Medicine
DX: J44.9 Chronic obstructive pulmonary disease, unspecified (principal); F17.211 Nicotine dependence, cigarettes, in remission
CPT/HCPCS: 36415; 82785; 85025; 86003; 86606

== ENCOUNTER → 2018-10-25 08:39 | Outpatient (CLI) | payer MEDICARE, SELFPAY ==
[2018-10-03 13:08] VITALS: BMI 30.8
[2018-10-25 08:51] VITALS: BP 94/51; PULSE 64; RESP 18; TEMP 36.6; O2SAT 98; BMI 31.5
[2018-10-25] MEDS: Mepolizumab 100 MG VIAL SQ (09:17)
--- NOTE | 2018-10-25 11:24 | NURSING ---
pt tolerated nucala. pt was observed from 0917 too 1120.
== END ==
PROVIDERS: Family Provider Family Medicine; PCP Family Medicine; Referring Provider Nurse Practitioner Acute Care; Visit Provider Nurse Practitioner Acute Care
DX: J45.50 Severe persistent asthma, uncomplicated (principal)
CPT/HCPCS: 96372; J2182

== ENCOUNTER → 2018-10-28 08:41 | Outpatient (CLI) | payer MEDICARE, MEDICAID, SELFPAY ==
[2018-10-03 13:08] VITALS: BMI 30.8
[2018-10-25 08:51] VITALS: BMI 31.5
[2018-10-28 09:53] VITALS: PULSE 74; PULSE 75; PULSE 78; PULSE 81; PULSE 82; PULSE 83; PULSE 85; PULSE 90; O2SAT 95; O2SAT 96; O2SAT 98
--- NOTE | 2018-10-28 13:34 | PCM.PSN.6M ---
PSN 6 Minute Walk Test - 6 Minute Walk Test 6 Minute Walk Test: 6 Minute Walk Test PSN:6-Minute Walk Test Start: 10/28/18 09:52 Freq: Status: Active Protocol: [id number].6MINW Document 10/28/18 09:53 DARLENE (Rec: 10/28/18 09:55 DARLENE [id number]) 6 Minute Walk Test Date Performed 10/28/18 Time Performed 09:00 Height 5 ft 3 in Weight: 80.739 kg Weight in Pounds 178.[address]: Anthony Jalloh Assistive device used: None Pre-test Oxygen Delivery Method Room Air Pulse Ox (%) 96 Pulse Rate (60-100 beats/min) 74 Dyspnea Conor Scale (0-10) 0 Exertion Conor Scale (6-20) 6 1st minute Oxygen Delivery Method Room Air Pulse Ox (%) 96 Pulse Rate (60-100 beats/min) 78 2nd minute Oxygen Delivery Method Room Air Pulse Ox (%) 95 Pulse Rate (60-100 beats/min) 81 3rd minute Oxygen Delivery Method Room Air Pulse Ox (%) 95 Pulse Rate (60-100 beats/min) 83 4th minute Oxygen Delivery Method Room Air Pulse Ox (%) 95 Pulse Rate (60-100 beats/min) 82 5th minute Oxygen Delivery Method Room Air Pulse Ox (%) 96 Pulse Rate (60-100 beats/min) 85 6th minute Oxygen Delivery Method Room Air Pulse Ox (%) 95 Pulse Rate (60-100 beats/min) 90 Dyspnea Conor Scale (0-10) 2 Exertion Conor Scale (6-20) 13 Post-test Oxygen Delivery Method Room Air Pulse Ox (%) 98 Pulse Rate (60-100 beats/min) 75 Full Laps Walked 18 Partial Lap, Number of Tiles Walked 0 Total Distance Walked (ft) 1062 - Interpretation Interpretation: The patient was able to ambulate 1062 feet over the course of 6 minutes on room air with no assistive devices or breaks. The patient did not experience significant desaturation or tachycardia during testing. These findings are consistent with a normal walking oximetry. - Recommendations Recommendations: No supplemental oxygen is indicated at this time.
== END ==
PROVIDERS: Family Provider Family Medicine; PCP Family Medicine; Referring Provider Internal Medicine Critical Care Medicine; Visit Provider Internal Medicine Critical Care Medicine
DX: J44.9 Chronic obstructive pulmonary disease, unspecified (principal)
CPT/HCPCS: 94618

== ENCOUNTER → 2018-11-22 09:59 | Outpatient (CLI) | payer MEDICARE, SELFPAY ==
[2018-10-25 08:51] VITALS: BMI 31.5
[2018-11-06 09:09] VITALS: BMI 32.1
[2018-11-22 12:32] LABS: Absolute Lymphocyte Count 1.82 X10^3/uL (0.83-4.51); Absolute Neutrophil Count 2.6 X10^3/uL (2.0-7.7); Basophil# 0.04 X10^3/uL; Basophil% 0.8 % (0-1); Eosinophil# 0.13 X10^3/uL; Eosinophils% 2.5 % (0-5); Hematocrit 40.3 % (37-47); Hemoglobin 13.4 g/dL (12.0-15.0); Lymphocyte # 1.82 X10^3/ul (4.0); Lymphocyte % 35.5 % (19-41); Mean Corp Hgb Conc 33.3 g/dL (32-36); Mean Corpuscular Hgb 30.5 pg (27.0-32.0); Mean Corpuscular Volume 91.6 fL (81-99); Monocyte# 0.51 X10^3/uL; Monocyte% 9.9 % (0-10); NRBC Flagged by Analyzer 0 % (0-5); Neutrophil # 2.61 X10^3/uL (2.7-7.7); Neutrophil % 50.9 % (47-70); Platelet Count 277 K/mm3 (150-450); RBC Distribution Width CV 12.3 % (11.6-14.6); White Blood Count 5.1 K/mm3 (4.4-11.0)
[2018-11-22 12:44] LABS: AST(SGOT) 18 U/L (15-37); Alanine Aminotransfer ALT/SGPT 22 U/L (13-56); Albumin, Serum 3.4 g/dL (3.2-5.0); Alkaline Phosphatase 107 U/L (45-117); Anion Gap 5 (5-15); BUN 11 mg/dL (7-18); BUN/Creat Ratio 13.9 RATIO (10-20); Calcium,Total 8.6 mg/dL (8.5-10.1); Chloride 110 mmol/L (98-107); Cholesterol 223 mg/dL (200); Creatinine, Serum 0.79 mg/dL (0.55-1.02); EST Glomerular Filtration Rate 78 mL/min (>60); Est Glom Filt Rate - Afr Amer 94 mL/min (>60); Globulin 3.4 g/dL (2.2-4.2); Glucose 106 mg/dL (74-106); High Density Lipoprotein 61 mg/dL; Potassium 4.2 mmol/L (3.5-5.1); Protein, Total 6.8 g/dL (6.4-8.2); Sodium Level 140 mmol/L (136-145); Triglycerides 84 mg/dL; Very Low Density Lipoprotein 17 mg/dL (5-40)
== END ==
LOC: MEDOUTP 11:01 → BFHLAB 11:06
PROVIDERS: Nurse Practitioner Acute Care; Family Provider Family Medicine; PCP Family Medicine; Referring Provider Family Medicine; Visit Provider Family Medicine
DX: J44.9 Chronic obstructive pulmonary disease, unspecified (principal); E78.5 Hyperlipidemia, unspecified; G47.33 Obstructive sleep apnea (adult) (pediatric)
CPT/HCPCS: 36415; 80053; 80061; 85025; J2182

== ENCOUNTER 2018-11-29 14:00 | Outpatient (RCR) | payer MEDICARE, MEDICAID, SELFPAY ==
[2018-10-03 13:08] VITALS: BMI 30.8
--- NOTE | 2018-10-18 16:47 | HP.SP.AD ---
History - History Date of Eval: 10/18/18 Smoking Status: Former smoker Hx Smoking Cessation Date: 2015. Pt vaped daily following smoking cessation, but has since stopped. Hx Tobacco Use: Yes Hx Smoking Exposure: Yes - Pain Is pain an issue with your current prescribed condition?: No Patient Allergies - Allergies Allergies codeine Allergy (Verified 07/27/18 13:07) Itching morphine Allergy (Verified 07/27/18 13:07) Itching doxycycline Adverse Reaction (Severe, Verified 07/27/18 13:07) severe headaches and muscle spasms to the chest Other Impressions - Comments Paradoxical Vocal Fold Dysfuntction -: The pt was seen today for possible underlying vocal fold dysfunction (pt has not been seen by an ENT). She was diagnosed with COPD in 2014 and asthma approximately 3 months ago, now presenting with overlap syndrome. Her symptoms began approximately 6 months ago and consist of sudden-onset difficulty with inhalation, throat tightness, stridor, rapid breathing, and coughing, with frequent headaches following. She reports she is often on prednisone, which helps her symptoms, but when off prednisone they quickly return and episodes increase in severity and frequency until she seeks acute emergency assistance (typically receiving breathing treatments and steroids). She can predict and actually invoke an attack by walking, but has also had attacks while in the shower. Symptoms begin suddenly, typically first with coughing and throat tightness. She has had a rescue inhaler for the last three months which initially seemed to help stop an attack, but is now providing no relief. She is typically able to stop an attack within approximately 5 minutes with use of her Bipap. The pt reports feeling extremely panicked during an attack and reports feeling no control of her breathing. She is on an antidepressant because she can't have a life due to these issues. The pt and her daughter do report increased stress over the last year associated with a special-needs grandson moving into the pt's house. Overall, the pt does present with many symptoms consistent with paradoxical vocal fold dysfunction, especially reports of primarily difficulty with inhalation (vs. exhalation as in the case with asthma), as well as possible psychogenic and aerobic overload causes. Additionally, the pt does experience laryngo-pharyngeal reflux, though states that this is well-managed with Previsid daily (though she does admit to being inconsistent with medications and experiencing globus sensation and heartburn when inconsistent). Plan - Plan Plan: Therefore, skilled speech-language therapy is recommended and medically necessary at this time for remediation of likely paradoxical vocal fold dysfunction, as left untreated this issue can have a significant impact on a patient's physical and emotional well-being. - Recommendations Treatment Warranted: Yes - Frequency Frequency: 1x/Week Duration: 2-4 Months - Prognosis Prognosis: Good - Goals that are Established: Determination:: Goals will be added/modified as deemed necessary and appropriate. Therapy will be discontinued when results of re-evaluation indicate therapy is no longer needed or lack of progress has been documented. - Goal #1-5 Goal #1: The patient will increase her knowledge of paradoxical vocal fold dysfunction by discussing normal and paradoxical vocal fold motion during breathing to reduce her anxiety and panic during an attack with 80% accuracy in 2/3 sessions. Goal #2: The patient will identify the causes of her paradoxical vocal fold dysfunction and identify ways to avoid her triggers with 90% accuracy in 2/3 sessions. Goal #3: The patient will learn breathing methods in order to control and ultimately prevent an. attack by accurately demonstrating said methods independently across 3 consecutive sessions. Education - Patient Instruction Patient Education: Diagnosis, Treatment Plan, Goals
--- NOTE | 2019-01-06 17:05 | HP.SP.DC ---
ST Discharge Summary - Discharged: Discharge: Tahira Esteban is discharged from outpatient speech-language therapy effective 01/06/2019. Tahira participated in three therapy sessions following her initial evaluation for management of possible paradoxical vocal fold dysfunction. Treatment focused on improving the patient's understanding of vocal fold dysfunction, identifying and avoiding triggers, and use of breathing strategies to prevent attacks. Tahira made adequate progress with all goals when asymptomatic; however, she began monthly Nucala shots in November to decrease airway inflammation for management of severe asthma and has been asymptomatic since that time. Therefore, no further skilled therapy is warranted. Please reconsult as necessary.
== END 2018-11-29 19:00 | disposition home or self-care (01) ==
LOC: SP 14:00
PROVIDERS: Family Provider Family Medicine Geriatric Medicine; PCP Family Medicine Geriatric Medicine; Visit Provider Internal Medicine Critical Care Medicine
DX: J38.3 Other diseases of vocal cords (principal)
CPT/HCPCS: 92507; 92524

== ENCOUNTER → 2019-03-21 08:41 | Outpatient (CLI) | payer MEDICARE, SELFPAY ==
[2019-03-19 08:11] VITALS: BMI 33.6
[2019-03-21 10:40] LABS: Absolute Lymphocyte Count 2.95 X10^3/uL (0.83-4.51); Absolute Neutrophil Count 2.9 X10^3/uL (2.0-7.7); Basophil# 0.06 X10^3/uL; Basophil% 0.9 % (0-1); Eosinophil# 0.23 X10^3/uL; Eosinophils% 3.4 % (0-5); Hematocrit 39.1 % (37-47); Hemoglobin 12.9 g/dL (12.0-15.0); Lymphocyte # 2.95 X10^3/ul (4.0); Lymphocyte % 44.1 % (19-41); Mean Corpuscular Hgb 29.5 pg (27.0-32.0); Mean Corpuscular Volume 89.5 fL (81-99); Mean Platelet Vol. 9.2 fl (6.2-12.0); Monocyte# 0.55 X10^3/uL; Monocyte% 8.2 % (0-10); NRBC Flagged by Analyzer 0 % (0-5); Neutrophil # 2.89 X10^3/uL (2.7-7.7); Neutrophil % 43.3 % (47-70); Platelet Count 297 K/mm3 (150-450); RBC Distribution Width SD 42.5 fl (35.1-43.9); Red Blood Count 4.37 M/mm3 (4.2-5.4); White Blood Count 6.7 K/mm3 (4.4-11.0)
== END ==
PROVIDERS: Family Provider Family Medicine; PCP Family Medicine; Referring Provider Internal Medicine Critical Care Medicine; Visit Provider Internal Medicine Critical Care Medicine
DX: J44.9 Chronic obstructive pulmonary disease, unspecified (principal)
CPT/HCPCS: 36415; 85025

== ENCOUNTER → 2019-05-13 09:00 | Outpatient (CLI) | payer MEDICARE, SELFPAY ==
[2019-03-19 08:11] VITALS: BMI 33.6
[2019-05-13 12:50] LABS: AST(SGOT) 17 U/L (15-37); Alanine Aminotransfer ALT/SGPT 24 U/L (13-56); Albumin, Serum 3.4 g/dL (3.2-5.0); Alkaline Phosphatase 111 U/L (45-117); Bilirubin, Direct 0.15 mg/dL (0.00-0.30); Cholesterol 222 mg/dL (200); Globulin 3.3 g/dL (2.2-4.2); High Density Lipoprotein 61 mg/dL; Protein, Total 6.7 g/dL (6.4-8.2); Triglycerides 77 mg/dL; Very Low Density Lipoprotein 15 mg/dL (5-40)
[2019-05-13 12:55] LABS: Hemoglobin A1c 5.9 % (4.2-6.3)
== END ==
PROVIDERS: PCP Family Medicine; Visit Provider Family Medicine
DX: E78.5 Hyperlipidemia, unspecified (principal); R73.01 Impaired fasting glucose
CPT/HCPCS: 36415; 80061; 80076; 83036

== ENCOUNTER → 2019-10-17 11:23 | Outpatient (CLI) | payer MEDICARE, SELFPAY ==
[2019-07-29 08:12] VITALS: BMI 33.6
[2019-10-17 15:21] LABS: Absolute Lymphocyte Count 2.05 X10^3/uL (0.83-4.51); Absolute Neutrophil Count 9.1 X10^3/uL (2.0-7.7); Basophil# 0.04 X10^3/uL; Basophil% 0.3 % (0-1); Eosinophil# 0.03 X10^3/uL; Eosinophils% 0.2 % (0-5); Hematocrit 40.2 % (37-47); Hemoglobin 13.3 g/dL (12.0-15.0); Lymphocyte # 2.05 X10^3/ul (4.0); Lymphocyte % 16.9 % (19-41); Mean Corp Hgb Conc 33.1 g/dL (32-36); Mean Corpuscular Volume 90.5 fL (81-99); Mean Platelet Vol. 8.9 fl (6.2-12.0); Monocyte# 0.68 X10^3/uL; Monocyte% 5.6 % (0-10); NRBC Flagged by Analyzer 0 % (0-5); Neutrophil # 9.14 X10^3/uL (2.7-7.7); Neutrophil % 75.5 % (47-70); Platelet Count 345 K/mm3 (150-450); RBC Distribution Width CV 13.1 % (11.6-14.6); RBC Distribution Width SD 42.9 fl (35.1-43.9); Red Blood Count 4.44 M/mm3 (4.2-5.4); White Blood Count 12.1 K/mm3 (4.4-11.0)
[2019-10-17 16:04] LABS: AST(SGOT) 13 U/L (15-37); Alanine Aminotransfer ALT/SGPT 22 U/L (13-56); Albumin, Serum 3.4 g/dL (3.2-5.0); Alkaline Phosphatase 101 U/L (45-117); Anion Gap 7 (5-15); BUN 17 mg/dL (7-18); BUN/Creat Ratio 19.7 RATIO (10-20); Calcium,Total 8.9 mg/dL (8.5-10.1); Chloride 104 mmol/L (98-107); Cholesterol 225 mg/dL (200); Creatinine, Serum 0.86 mg/dL (0.55-1.02); EST Glomerular Filtration Rate 70 mL/min (>60); Est Glom Filt Rate - Afr Amer 85 mL/min (>60); Globulin 3.5 g/dL (2.2-4.2); Glucose 88 mg/dL (74-106); High Density Lipoprotein 67 mg/dL; Potassium 3.7 mmol/L (3.5-5.1); Protein, Total 6.9 g/dL (6.4-8.2); Sodium Level 138 mmol/L (136-145); Triglycerides 93 mg/dL; Very Low Density Lipoprotein 19 mg/dL (5-40)
== END ==
PROVIDERS: PCP Family Medicine; Visit Provider Family Medicine
DX: E78.5 Hyperlipidemia, unspecified (principal); R73.03 Prediabetes; J44.9 Chronic obstructive pulmonary disease, unspecified
CPT/HCPCS: 36415; 80053; 80061; 83036; 85025

== ENCOUNTER → 2019-10-29 08:09 | Outpatient (CLI) | payer MEDICARE, SELFPAY ==
[2019-07-29 08:12] VITALS: BMI 33.6
[2019-10-29 06:38] VITALS: BMI 33.6
--- NOTE | 2019-10-29 08:13 | BI_ITS ---
MAMMOGRAPHY - BILATERAL SCREENING 3-D TOMOSYNTHESIS REASON FOR EXAM: Female, 64 years old. Routine screening PERTINENT HISTORY: BILAT SCREENING - NO FAM HX - NO PREV SURG''S - RT U/S DONE 11/15/17 FOR LUMP= BENIGN. TECHNIQUE: 2-D mammograms and 3-D Tomosynthesis of the breast (s) were performed. CAD was performed. COMPARISON: 11/15/2017 FINDINGS: The breast composition is almost entirely fat. Scattered benign calcifications are seen. No dense spiculated masses or suspicious microcalcifications are identified. No architectural distortion is identified. There is no skin thickening or retraction. There has been no significant change since the prior study. BI/SCREEN MAMM (CAD) W/MILA BILAT IMPRESSION: No mammographic signs of malignancy. Routine yearly mammograms recommended. ASSESSMENT CATEGORY: BIRADS Category 1: Negative. A letter regarding these results will be sent to the patient by the facility within 30 days. FOLLOW UP RECOMMENDATION: Yearly follow up mammogram recommended. (A) Approximately 10% of breast cancers are not detected by mammography. A normal mammogram should not delay biopsy of a clinically suspicious abnormality. Electronically Signed: Oniel Lai MD at 9:18 EDT , Service support ,
--- NOTE | 2019-10-29 08:50 | BD_ITS ---
STUDY: DUAL ENERGY X-RAY ABSORPTIOMETRY / DXA REASON FOR EXAM: Female, 64 years old. 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 COMPARISON: None. FINDINGS: Lumbar Spine (L1-L4): g/cm2 (0.977) / T-score (-1.6) / Z-score (0.0) Findings are suggestive of osteopenia with a moderate fracture risk. Left Femur Total: g/cm2 (0.836) / T-score (-1.4) / Z-score (-0.2) Left Femoral Neck: g/cm2 (0.853) / T-score (-1.3) / Z-score (0.1) Right Femur Total: g/cm2 (0.848) / T-score (-1.3) / Z-score (-0.1) Right Femoral Neck: g/cm2 (0.819) / T-score (-1.6) / Z-score (-0.1) BD/Dexa Bone Density Study IMPRESSION: The patient is considered osteopenic as outlined below according to World Andrea Organization (WHO) criteria with a moderate fracture risk. Reference Information: The T-score is the number of standard deviations above or below the standard which is normal for young adults at their peak bone mineral density. The World Health Organization (WHO) interprets the T-scores as follows: Above -1 Normal bone density Between -1 and -2.5 Osteopenia Equal to / or below -2.5 Osteoporosis As a practical clinical guideline, osteopenia may be graded as follows: Mild -1 through -1.5 Moderate -1.6 through -2.0 Severe -2.1 through -2.4 The Z-score is the number of standard deviations above or below age-matched controls. A Z-score of less than -1.5 would be considered abnormal. References: 1. NIH Osteoporosis and Related Bone Diseases http://www.osteo.org 2. International Society for Clinical Densitometry http://www.iscd.org 3. National Osteoporosis Foundation http://www.nof.org Electronically Signed: Jason Au, at 15:44 EDT , Service support ,
== END ==
PROVIDERS: PCP Family Medicine; Referring Provider Family Medicine; Visit Provider Family Medicine
DX: Z12.31 Encounter for screening mammogram for malignant neoplasm of breast (principal); M85.80 Other specified disorders of bone density and structure, unspecified site; Z78.0 Asymptomatic menopausal state; J44.9 Chronic obstructive pulmonary disease, unspecified; Z79.52 Long term (current) use of systemic steroids; Z79.890 Hormone replacement therapy; Z87.891 Personal history of nicotine dependence
CPT/HCPCS: 77063; 77067; 77080

== ENCOUNTER → 2020-02-12 | Outpatient (CLI) | payer MEDICARE, OTHER, SELFPAY ==
[2020-01-12 07:51] VITALS: BMI 37.3
[2020-02-12 08:07] VITALS: BP 125/60; PULSE 69; RESP 16; TEMP 36.4; O2SAT 94; BMI 36.1
[2020-02-12] MEDS: Mepolizumab 100 MG VIAL SQ (08:45)
[2020-02-12 09:04] VITALS: BP 106/63; PULSE 61; RESP 16; TEMP 36.4; O2SAT 94
[2020-02-12 09:20] VITALS: BP 106/63; PULSE 61; RESP 16; TEMP 36.4; O2SAT 94
== END | disposition home or self-care (01) ==
PROVIDERS: PCP Family Medicine; Referring Provider Nurse Practitioner Acute Care; Visit Provider Nurse Practitioner Acute Care
DX: J45.50 Severe persistent asthma, uncomplicated (principal)
CPT/HCPCS: 96372; J2182

== ENCOUNTER → 2020-03-11 08:31 | Outpatient (CLI) | payer MEDICARE, OTHER, SELFPAY ==
[2020-01-12 07:51] VITALS: BMI 37.3
[2020-02-12 08:07] VITALS: BMI 36.1
[2020-03-11 08:44] VITALS: BP 114/54; PULSE 65; RESP 16; TEMP 36.1; O2SAT 95; BMI 36.1
[2020-03-11] MEDS: Mepolizumab 100 MG VIAL SQ (08:56)
[2020-03-11 09:00] VITALS: BP 114/54; PULSE 65; RESP 16; TEMP 35.5; O2SAT 95
== END ==
PROVIDERS: PCP Family Medicine; Referring Provider Nurse Practitioner Acute Care; Visit Provider Nurse Practitioner Acute Care
DX: J45.50 Severe persistent asthma, uncomplicated (principal)
CPT/HCPCS: 96372; J2182

== ENCOUNTER → 2020-04-08 08:08 | Outpatient (CLI) | payer MEDICARE, OTHER, SELFPAY ==
[2020-02-12 08:07] VITALS: BMI 36.1
[2020-03-11 08:44] VITALS: BMI 36.1
[2020-04-08 08:31] VITALS: BP 121/70; PULSE 62; RESP 16; TEMP 35.7; O2SAT 97; BMI 34.9
[2020-04-08] MEDS: Mepolizumab 100 MG VIAL SQ (08:43)
== END ==
PROVIDERS: PCP Family Medicine; Referring Provider Nurse Practitioner Acute Care; Visit Provider Nurse Practitioner Acute Care
DX: J45.50 Severe persistent asthma, uncomplicated (principal)
CPT/HCPCS: 96372; J2182

== ENCOUNTER → 2020-05-06 08:10 | Outpatient (CLI) | payer MEDICARE, OTHER, SELFPAY ==
[2020-03-11 08:44] VITALS: BMI 36.1
[2020-04-08 08:31] VITALS: BMI 34.9
[2020-05-06 08:20] VITALS: BP 121/65; PULSE 62; RESP 16; TEMP 36.1; O2SAT 97; BMI 34.9
[2020-05-06] MEDS: Mepolizumab 100 MG VIAL SQ (08:31)
== END ==
LOC: MEDOUTP 08:11
PROVIDERS: PCP Family Medicine; Referring Provider Nurse Practitioner Acute Care; Visit Provider Nurse Practitioner Acute Care
DX: J45.50 Severe persistent asthma, uncomplicated (principal)
CPT/HCPCS: 96372; J2182

== ENCOUNTER → 2020-05-27 13:37 | Outpatient (CLI) | payer MEDICARE, OTHER, SELFPAY ==
[2020-05-18 10:43] VITALS: BMI 34.7
--- NOTE | 2020-05-27 13:38 | CT_ITS ---
STUDY: CT CHEST WITHOUT CONTRAST REASON FOR EXAM: Female, 65 years old. Lung nodule follow up, some intermittent right chest pain. Hx COPD, asthma, former smoker. RADIATION DOSAGE (If Supplied By Facility): CTDIvol = ( 12.86 ) mGy, DLP = ( 443.55 ) mGycm TECHNIQUE: Transaxial imaging was performed without the administration of intravenous contrast material. Multiplanar coronal and sagittal images were reformatted. Individualized dose optimization techniques were used for this CT. COMPARISON: Comparison is made with prior study dated 05/12/2018. FINDINGS: Hyperinflation. There is evidence of centrilobular emphysema in the upper lobes. Stable 5 mm noncalcified pleural-based nodule in the superior medial segment of the right lower lobe as seen on axial image #51. Once again, there is a vague 2 mm nodule seen in the left upper lobe as well as a 7 mm pleural-based nodule in the left lower lobe. There is no demonstrated pleural abnormality. There are calcifications of the coronary arteries. There are multiple small lymph nodes within the mediastinum, which are normal in size and morphology most compatible with reactive lymph hyperplasia. Normal hilar regions. Normal unenhanced pulmonary arteries. There is atherosclerotic calcification of the aortic arch . There is demineralization of the thoracic spine. There is no demonstrated abnormality of the visualized upper abdomen. CT/Chest without Contrast IMPRESSION: Stable examination. Electronically Signed: Jason Au MD at 14:58 EST , Service support ,
== END ==
PROVIDERS: PCP Family Medicine; Referring Provider Internal Medicine Critical Care Medicine; Visit Provider Internal Medicine Critical Care Medicine
DX: R91.8 Other nonspecific abnormal finding of lung field (principal)
CPT/HCPCS: 71250

== ENCOUNTER 2020-06-03 08:17 | Outpatient (CLI) | payer MEDICARE, OTHER, SELFPAY ==
[2020-04-08 08:31] VITALS: BMI 34.9
[2020-05-18 10:43] VITALS: BMI 34.7
[2020-06-03 08:23] VITALS: BP 114/70; PULSE 75; RESP 18; TEMP 36.1; O2SAT 95; BMI 35.0
[2020-06-03] MEDS: Mepolizumab 100 MG VIAL SQ (08:35)
== END 2020-06-03 16:00 | disposition home or self-care (01) ==
LOC: MEDOUTP 08:17
PROVIDERS: PCP Family Medicine; Referring Provider Nurse Practitioner Acute Care; Visit Provider Nurse Practitioner Acute Care
DX: J45.50 Severe persistent asthma, uncomplicated (principal)
CPT/HCPCS: 96372; J2182

== ENCOUNTER → 2020-07-01 08:27 | Outpatient (CLI) | payer MEDICARE, OTHER, SELFPAY ==
[2020-05-18 10:43] VITALS: BMI 34.7
[2020-06-03 08:23] VITALS: BMI 35.0
[2020-07-01 08:33] VITALS: BP 131/66; PULSE 80; RESP 18; TEMP 35.9; O2SAT 94; BMI 34.9
[2020-07-01] MEDS: Mepolizumab 100 MG VIAL SQ (08:54)
== END ==
PROVIDERS: PCP Family Medicine; Referring Provider Nurse Practitioner Acute Care; Visit Provider Nurse Practitioner Acute Care
DX: J45.50 Severe persistent asthma, uncomplicated (principal)
CPT/HCPCS: 96372; J2182

== ENCOUNTER 2020-07-29 08:10 | Outpatient (CLI) | payer MEDICARE, OTHER, SELFPAY ==
[2020-07-02 10:39] VITALS: BMI 35.6
[2020-07-29 08:23] VITALS: BP 106/71; PULSE 84; RESP 16; TEMP 36.2; O2SAT 97; BMI 34.9
[2020-07-29] MEDS: Mepolizumab 100 MG VIAL SQ (08:35)
== END 2020-07-29 15:00 | disposition home or self-care (01) ==
LOC: MEDOUTP 08:11
PROVIDERS: PCP Family Medicine; Referring Provider Nurse Practitioner Acute Care; Visit Provider Nurse Practitioner Acute Care
DX: J45.50 Severe persistent asthma, uncomplicated (principal)
CPT/HCPCS: 96372; J2182

== ENCOUNTER → 2020-07-30 | Outpatient (CLI) | payer MEDICARE, OTHER, SELFPAY ==
[2020-07-29 08:23] VITALS: BMI 34.9
== END | disposition home or self-care (01) ==
LOC: LABSPEC 12:57
PROVIDERS: PCP Family Medicine; Visit Provider Family Medicine
DX: N39.0 Urinary tract infection, site not specified (principal)
CPT/HCPCS: 87077; 87086; 87088; 87186

== ENCOUNTER → 2020-08-26 08:15 | Outpatient (CLI) | payer MEDICARE, OTHER, MEDICAID, SELFPAY ==
[2020-07-02 10:39] VITALS: BMI 35.6
[2020-07-29 08:23] VITALS: BMI 34.9
[2020-08-26 08:23] VITALS: BP 115/69; PULSE 65; RESP 16; TEMP 36.2; O2SAT 93; BMI 34.2
[2020-08-26] MEDS: Mepolizumab 100 MG VIAL SQ (08:44)
== END ==
PROVIDERS: PCP Family Medicine; Referring Provider Nurse Practitioner Acute Care; Visit Provider Nurse Practitioner Acute Care
DX: J45.50 Severe persistent asthma, uncomplicated (principal)
CPT/HCPCS: 96372; J2182

== ENCOUNTER → 2020-09-10 | Outpatient (CLI) | payer MEDICARE, MEDICAID, OTHER, SELFPAY ==
[2020-08-26 08:23] VITALS: BMI 34.2
[2020-09-10 10:29] LABS: Mucous, Urine 0 SEEN /hpf (<or=2+)
[2020-09-10 10:38] LABS: Color, Urine Yellow (Yellow); Glucose, Dipstick Normal (Normal); Ketone-Dipstick Negative (Negative); Leukocyte Esterase-Dipstick 500 /ul (Negative); Nitrite-Dipstick Negative (Negative); Occult Blood-Urine 150 /ul (Negative); Protein-Dipstick 100 mg/dl (Negative); Specific Gravity, Urine 1.025 (1.002-1.030); Urine Bilirubin Dipstick Negative (Negative); Urine Clarity Cloudy (Clear); Urine Urobilinogen Normal (Normal)
[2020-09-10 10:46] LABS: Bacteria 1+ /hpf (None Seen); Red Blood Cells-Urine 10-25 SEEN /hpf (0-5); Squamous Epithelial Cells - UA 0-5 SEEN /hpf (5-10); White Blood Cells 25-50 SEEN /hpf (0-5)
== END | disposition home or self-care (01) ==
LOC: LABSPEC 10:17
PROVIDERS: PCP Family Medicine; Referring Provider Physician Assistant Surgical; Visit Provider Physician Assistant Surgical
DX: N30.90 Cystitis, unspecified without hematuria (principal)
CPT/HCPCS: 81001; 87077; 87086; 87088; 87186

== ENCOUNTER → 2020-09-24 10:20 | Outpatient (CLI) | payer MEDICARE, MEDICAID, OTHER, SELFPAY ==
[2020-08-26 08:23] VITALS: BMI 34.2
[2020-09-24 10:42] VITALS: BP 112/64; PULSE 64; RESP 16; TEMP 36.6; O2SAT 94; BMI 34.0
[2020-09-24] MEDS: Mepolizumab 100 MG VIAL SQ (10:46)
== END ==
PROVIDERS: PCP Family Medicine; Referring Provider Nurse Practitioner Acute Care; Visit Provider Nurse Practitioner Acute Care
DX: J45.50 Severe persistent asthma, uncomplicated (principal)
CPT/HCPCS: 96372; J2182

== ENCOUNTER → 2020-10-21 08:20 | Outpatient (CLI) | payer MEDICARE, MEDICAID, SELFPAY ==
[2020-08-26 08:23] VITALS: BMI 34.2
[2020-09-24 10:42] VITALS: BMI 34.0
[2020-10-21 08:24] VITALS: BP 133/72; PULSE 70; RESP 16; TEMP 36.1; O2SAT 97; BMI 34.5
[2020-10-21] MEDS: Mepolizumab 100 MG VIAL SQ (08:47)
== END ==
PROVIDERS: PCP Family Medicine; Referring Provider Nurse Practitioner Acute Care; Visit Provider Nurse Practitioner Acute Care
DX: J45.50 Severe persistent asthma, uncomplicated (principal)
CPT/HCPCS: 96372; J2182

== ENCOUNTER → 2020-11-18 08:25 | Outpatient (CLI) | payer MEDICARE, MEDICAID, SELFPAY ==
[2020-09-24 10:42] VITALS: BMI 34.0
[2020-10-21 08:24] VITALS: BMI 34.5
[2020-11-18 08:33] VITALS: BP 110/50; PULSE 72; RESP 16; TEMP 35.8; O2SAT 95; BMI 35.0
[2020-11-18] MEDS: Mepolizumab 100 MG VIAL SQ (08:46)
== END ==
PROVIDERS: PCP Family Medicine; Referring Provider Nurse Practitioner Acute Care; Visit Provider Nurse Practitioner Acute Care
DX: J45.50 Severe persistent asthma, uncomplicated (principal)
CPT/HCPCS: 96372; J2182

== ENCOUNTER → 2020-12-17 10:51 | Outpatient (CLI) | payer MEDICARE, MEDICAID, SELFPAY ==
[2020-10-21 08:24] VITALS: BMI 34.5
[2020-12-17 10:57] VITALS: BP 112/74; PULSE 93; RESP 18; O2SAT 94; BMI 34.5
[2020-12-17] MEDS: Mepolizumab 100 MG VIAL SQ (11:23)
== END ==
PROVIDERS: PCP Family Medicine; Referring Provider Nurse Practitioner Acute Care; Visit Provider Nurse Practitioner Acute Care
DX: J45.50 Severe persistent asthma, uncomplicated (principal)
CPT/HCPCS: 96372; J2182

== ENCOUNTER → 2021-01-13 08:17 | Outpatient (CLI) | payer MEDICARE, OTHER, MEDICAID, SELFPAY ==
[2021-01-13 08:26] VITALS: BP 128/71; PULSE 70; RESP 16; TEMP 36.5; O2SAT 94
[2021-01-13] MEDS: Mepolizumab 100 MG VIAL SQ (08:45)
== END ==
PROVIDERS: PCP Family Medicine; Referring Provider Nurse Practitioner Acute Care; Visit Provider Nurse Practitioner Acute Care
DX: J45.50 Severe persistent asthma, uncomplicated (principal)
CPT/HCPCS: 96372; J2182

== ENCOUNTER → 2021-02-11 09:28 | Outpatient (CLI) | payer MEDICARE, OTHER, MEDICAID, SELFPAY ==
[2021-02-11 09:40] VITALS: BP 117/67; PULSE 71; RESP 16; TEMP 37; O2SAT 94
[2021-02-11] MEDS: Mepolizumab 100 MG VIAL SQ (09:55)
== END ==
PROVIDERS: PCP Family Medicine; Referring Provider Nurse Practitioner Acute Care; Visit Provider Nurse Practitioner Acute Care
DX: J45.50 Severe persistent asthma, uncomplicated (principal)
CPT/HCPCS: 96372; J2182

== ENCOUNTER → 2021-03-11 13:41 | Outpatient (CLI) | payer MEDICARE, OTHER, MEDICAID, SELFPAY ==
[2021-03-11 13:47] VITALS: BP 136/66; PULSE 75; RESP 16; TEMP 35.9; O2SAT 97; BMI 35.0
[2021-03-11] MEDS: Mepolizumab 100 MG VIAL SQ (13:57)
== END ==
PROVIDERS: PCP Family Medicine; Referring Provider Nurse Practitioner Acute Care; Visit Provider Nurse Practitioner Acute Care
DX: J45.50 Severe persistent asthma, uncomplicated (principal)
CPT/HCPCS: 96372; J2182

== ENCOUNTER 2021-04-04 22:00 | Emergency (ER) | payer MEDICARE, OTHER, MEDICAID, SELFPAY ==
[2021-04-04 22:01] VITALS: BP 125/73; PULSE 100; RESP 20; TEMP 36.4; O2SAT 93; BMI 35.2
[2021-04-04 22:22] LABS: Mucous, Urine 0 SEEN /hpf (<or=2+); Red Blood Cells-Urine 0 SEEN /hpf (0-5)
[2021-04-04 22:35] LABS: Color, Urine Yellow (Yellow); Glucose, Dipstick Normal (Normal); Ketone-Dipstick 5 mg/dl (Negative); Leukocyte Esterase-Dipstick 100 /ul (Negative); Nitrite-Dipstick Negative (Negative); Occult Blood-Urine 10 /ul (Negative); Protein-Dipstick 30 mg/dl (Negative); Specific Gravity, Urine 1.025 (1.002-1.030); Urine Bilirubin Dipstick Negative (Negative); Urine Clarity Sl. Cloudy (Clear); Urine Urobilinogen 1 mg/dl (Normal)
[2021-04-04 22:48] LABS: Bacteria RARE /hpf (None Seen); Squamous Epithelial Cells - UA 0-5 SEEN /hpf (5-10); White Blood Cells 0-5 SEEN /hpf (0-5)
--- NOTE | 2021-04-04 23:15 | EDS_ITS ---
HPI HPI - Female History of Present Illness Chief Complaint: Complaint Narrative Narrative: Patient presents with 3 weeks of dysuria. She states she has pain and burning with urination and low back pain mainly on the right. She feels like she has UTI symptoms which she has had previously. She denies any fevers or chills but may have had a slightly elevated temperature. No nausea or vomiting. Past medical history includes COPD. No exacerbating or alleviating factors. She tried to go to [facility] urgent care but was unable to be seen. She has not taken any [id number] medications for her dysuria. [facility] Medical History (Updated 04/04/21 @ 23:22 by Humza Lo MD) Atherosclerotic heart disease of [place] coronary artery without angina pectoris Cardiac murmur, unspecified Central sleep apnea Chest pain, unspecified COPD (chronic obstructive pulmonary disease) TORREZ (dyspnea on exertion) Hyperlipidemia Nicotine dependence in remission Obesity PHILIP (obstructive sleep apnea) Peripheral vascular disease Urinary frequency UTI (urinary tract infection) Home Medications clopidogrel 75 mg PO DAILY 10/23/15 [History Last Taken 05/10/18] albuterol sulfate 2.5 mg INHALATION Q4H PRN #120 vial 10/24/17 [Rx Last Taken 05/10/18] albuterol sulfate 90 mcg/actuation aerosol inhaler 1 - 2 puff INHALATION Q4H PRN PRN #1 inhaler 10/24/17 [Rx Last Taken 05/10/18] atorvastatin 80 mg tablet 80 mg PO QHS 90 Days #90 tablet 02/25/18 [History Last Taken 05/10/18] venlafaxine 75 mg tablet 75 mg PO DAILY 30 Days #60 tablet 02/25/18 [History Last Taken 05/10/18] loratadine 10 mg capsule 10 mg PO QDAY #30 cap 08/14/18 [Rx Last Taken Unknown] spacer #1 each 07/29/19 [Rx Last Taken Unknown] Disability Placard #1 ea 01/04/21 [Rx Last Taken Unknown] albuterol sulfate 90 mcg/actuation aerosol inhaler 2 puff INHALATION Q4H PRN #8.5 g 01/04/21 [Rx Last Taken Unknown] fluticasone fur. 100 mcg-umeclid 62.5 mcg-vilant 25 mcg inhalat.powder 1 inh INHALATION QDAY #60 ea 01/04/21 [Rx Last Taken Unknown] montelukast 10 mg tablet 10 mg PO QPM #30 tablet 01/04/21 [Rx Last Taken Unknown] sulfamethoxazole-trimethoprim [Bactrim DS] 1 tab PO BID #6 tab 04/04/21 [Rx Last Taken Unknown] Allergy/AdvReac Type Severity Reaction Status Date / Time codeine Allergy Itching Verified 04/04/21 22:04 morphine Allergy Itching Verified 04/04/21 22:04 doxycycline AdvReac Severe severe Verified 04/04/21 22:04 headaches and muscle spasms to the chest Family History Mother Cancer Lung CA Father Emphysema Chronic Bronchitis, in 80s. Sister Diabetes CAD (coronary artery disease) Sister Heart disease Brother Respiratory abnormalities Cancer Surgical History H/O: hysterectomy S/P surgical manipulation of ankle joint Social History Smoking Status: Never smoker second hand exposure: No alcohol intake: never substance use type: does not use what type of physical activity do you participate in: none ROS ROS ED ROS Narrative Constitutional: No fever, no chills. HEENT: No sore throat. No neck pain. No loss of vision. No rhinorrhea. Cardiovascular: No chest pain. No palpitations. No pedal edema. Respiratory: No cough, no shortness of breath. Abdominal: No abdominal pain. No nausea. No vomiting. Genitourinary: Positive dysuria. No hematuria. Musculoskeletal: No myalgias. No arthralgias. Right-sided low back pain. Neurologic: No headaches. No dizziness. No lightheadedness. Skin: No rash. No change in color. Psychiatric: No depression. No anxiety. EXAM Physical Exam Narrative Exam Narrative: Afebrile. Vital signs noted. HEENT: Normocephalic. Atraumatic. PERRL, EOMI. Neck soft and supple. No point tenderness or step off. Cardiovascular: Regular rate and rhythm. No murmurs, rubs, or gallops appreciated. Respiratory: No tachypnea. Lungs clear to auscultation bilaterally. Gastrointestinal: Abdomen soft, nontender, with normoactive bowel sounds. No rebound or guarding. Neurological: Awake. Alert. Nonfocal, nonlateralizing. Skin: No rash. Normal color. No pallor. Musculoskeletal: No pedal edema. Full range of motion extremities. No CVA tenderness to percussion bilaterally. Const Vital Signs: 04/04/21 22:01 Temperature 97.6 F L Temperature Source Temporal Pulse Rate 100 Respiratory Rate 20 H Blood Pressure 125/73 H Blood Pressure Mean 90 Pulse Ox 93 Oxygen Delivery Method Room Air MDM MDM MDM Narrative Medical decision making narrative: Urinalysis was obtained. There are 100 leukocyte esterase but negative for nitrites. 0-5 WBCs but she does have rare bacteria. Given her symptoms of dysuria for 3 weeks, I will place her on antibiotics for 3 days in the form of Bactrim. She will follow up with her primary care physician. Return instructions were reviewed. Disposition is discharged home in stable condition. Lab Data Attestation: I reviewed the patient's lab results. Labs: Laboratory Results - last 24 hr 04/04/21 22:15 Urine Color Yellow Urine Clarity Sl. Cloudy Urine pH 5.0 Ur Specific [place] 1.025 Urine Protein 30 H Urine Glucose (UA) Normal Urine Ketones 5 H Urine Occult Blood 10 H Urine Nitrite Negative Urine Bilirubin Negative Urine Urobilinogen 1 H Ur Leukocyte Esterase 100 H Urine RBC 0 SEEN Urine WBC 0-5 SEEN Ur Squamous Epith Cells 0-5 SEEN Urine Bacteria RARE Urine Mucus 0 SEEN Discharge Plan Triage Chief Complaint: Complaint ED Provider: Humza Lo Dx/Rx/DC Orders Clinical Impression: Dysuria, Cystitis Instructions: ED Dysuria, Uncertain Cause (Adult), ED CYSTITIS Female Adult Prescriptions: New sulfamethoxazole-trimethoprim [Bactrim DS] 800-160 mg tablet 1 tab PO BID Qty: 6 RF: 0 No Action albuterol sulfate 90 mcg/actuation HFA aerosol inhaler 1 - 2 puff INHALATION Q4H PRN PRN (Reason: COPD J44.9) Qty: 1 RF: 1 atorvastatin 80 mg tablet 80 mg PO QHS 90 Days Qty: 90 RF: 0 venlafaxine 75 mg tablet 75 mg PO DAILY 30 Days Qty: 60 RF: 0 loratadine 10 mg capsule 10 mg PO QDAY Qty: 30 RF: 6 (DME) spacer See Rx Instructions .Route .MEDSUPPLY Qty: 1 RF: 0 (DME) Disability Placard See Rx Instructions .Route .MEDSUPPLY Qty: 1 RF: 0 Trelegy Ellipta 100-62.5-25 mcg blister with device 1 inh INHALATION QDAY Qty: 60 RF: 11 albuterol sulfate 90 mcg/actuation HFA aerosol inhaler 2 puff inhalation Q4H PRN (Reason: shortness of breath or wheezing) Qty: 8.5 RF: 6 montelukast [Singulair] 10 mg tablet 10 mg PO QPM Qty: 30 RF: 11 clopidogrel 75 MG tablet 75 mg PO DAILY RF: 0 albuterol sulfate 2.5 mg /3 mL (0.083 %) solution for nebulization 2.5 mg INHALATION Q4H PRN Qty: 120 RF: 6 Primary Care Provider: Kamilah Patel Referrals: Kamilah Patel MD [Primary Care Provider] - 04/07/21 Disposition Disposition: Home, Self Care Discharge Date/Time: 04/04/21 23:27
[2021-04-04] MEDS: Smz/Tmp Ds Tablet 1 TABLET PO (23:25)
== END 2021-04-04 23:27 | disposition home or self-care (01) ==
PROVIDERS: Emergency Provider Emergency Medicine; PCP Family Medicine
DX: N30.90 Cystitis, unspecified without hematuria (principal); I25.10 Atherosclerotic heart disease of native coronary artery without angina pectoris; J44.9 Chronic obstructive pulmonary disease, unspecified; E78.5 Hyperlipidemia, unspecified; G47.33 Obstructive sleep apnea (adult) (pediatric); E66.9 Obesity, unspecified
CPT/HCPCS: 81001; 99283

== ENCOUNTER 2021-05-20 10:51 | Outpatient (CLI) | payer MEDICARE, OTHER, MEDICAID, SELFPAY ==
[2021-05-20 11:07] VITALS: BP 118/70; PULSE 91; RESP 16; TEMP 36.2; O2SAT 96
[2021-05-20] MEDS: Mepolizumab 100 MG VIAL SQ (11:33)
== END 2021-05-20 23:59 | disposition home or self-care (01) ==
LOC: MEDOUTP 10:53
PROVIDERS: PCP Family Medicine; Referring Provider Nurse Practitioner Acute Care; Visit Provider Nurse Practitioner Acute Care
DX: J45.50 Severe persistent asthma, uncomplicated (principal)
CPT/HCPCS: 96372; J2182

== ENCOUNTER 2021-06-28 17:56 | Outpatient (CLI) | payer MEDICARE, MEDICAID, OTHER, SELFPAY ==
--- NOTE | 2021-06-28 17:59 | CT_ITS ---
STUDY: CT CHEST WITHOUT CONTRAST ENHANCEMENT OF 1804 HOURS ON 06/28/2021 REASON FOR EXAM: 66-year-old female with CT follow-up for known pulmonary nodules. RADIATION DOSAGE (If Supplied By Facility): CTDIvol = ( 14.01 ) mGy, DLP = ( 458.5 ) mGycm TECHNIQUE: Transaxial imaging was performed without the administration of intravenous contrast material. Individualized dose optimization techniques were used for this CT. COMPARISON: 05/27/2020. FINDINGS: Normal sternum, ribs, and thoracic spine. No cardiomegaly. Mildly calcified abdominal aorta without aneurysmal dilatation. No pulmonary infiltrates, atelectasis, or effusion. Again, there is mild hyperinflation and mild centrilobular emphysema in the upper lobes. There is no interval change in the 2 mm diameter pulmonary nodule in the left upper lobe. Again, there is a 7 mm in diameter irregular pleural-based fibrotic, or less likely atelectatic change in the lingula--slightly more prominent than the previous study. This lesion no longer has a mass or nodular appearance. Nevertheless, a six-month to one-year follow-up is recommended. There is no evidence of other pulmonary nodules, infiltrates, atelectasis, or effusion. CT/Chest without Contrast IMPRESSION: 1. No interval change in the 2 mm diameter pulmonary nodule in the left upper lobe--benign. 2. Again, there is a 7 mm diameter irregular pleural-based fibrotic or less likely atelectatic change in the lingula--slightly more prominent and not having a nodular configuration as compared with the previous study of 06/28/2021. 3. No evidence of other pulmonary nodules, pulmonary mass lesions, infiltrates, atelectasis, effusion. 4. Mild centrilobular emphysema in the upper lobes and mild hyperinflation. 5. No cardiomegaly or heart failure. 6. Normal osseous structures. 7. Because of the change in appearance of the 7 mm diameter lesion in the lingula (not left lower lobe), it is recommended that the patient had a six-month to one-year follow-up. Electronically Signed: Barber Issa MD at 23:36 EDT ,
== END 2021-06-28 23:59 | disposition home or self-care (01) ==
LOC: CT 17:58
PROVIDERS: PCP Family Medicine; Referring Provider Nurse Practitioner Acute Care; Visit Provider Nurse Practitioner Acute Care
DX: R91.1 Solitary pulmonary nodule (principal)
CPT/HCPCS: 71250

== ENCOUNTER 2021-08-05 13:18 | Outpatient (CLI) | payer MEDICARE, MEDICAID, OTHER, SELFPAY ==
[2021-08-05 13:27] VITALS: BP 110/63; PULSE 84; RESP 20; TEMP 36.1; O2SAT 95
[2021-08-05] MEDS: Mepolizumab 100 MG VIAL SQ (13:42)
== END 2021-08-05 23:59 | disposition home or self-care (01) ==
LOC: MEDOUTP 13:18
PROVIDERS: PCP Family Medicine; Referring Provider Nurse Practitioner Acute Care; Visit Provider Nurse Practitioner Acute Care
DX: J45.50 Severe persistent asthma, uncomplicated (principal)
CPT/HCPCS: 96372; J2182

== ENCOUNTER → 2021-09-02 | Outpatient (CLI) | payer MEDICARE, MEDICAID, OTHER, SELFPAY ==
[2021-09-02 13:53] VITALS: BP 106/62; PULSE 79; RESP 16; TEMP 36.3; O2SAT 94
[2021-09-02] MEDS: Mepolizumab 100 MG VIAL SQ (13:56)
== END | disposition home or self-care (01) ==
LOC: MEDOUTP 13:25
PROVIDERS: PCP Family Medicine; Referring Provider Nurse Practitioner Acute Care; Visit Provider Nurse Practitioner Acute Care
DX: J45.50 Severe persistent asthma, uncomplicated (principal)
CPT/HCPCS: 96372; J2182

== ENCOUNTER 2021-10-21 08:49 | Outpatient (CLI) | payer MEDICARE, MEDICAID, OTHER, SELFPAY ==
[2021-10-21 08:56] VITALS: BP 137/70; PULSE 67; TEMP 35.8; O2SAT 96
[2021-10-21] MEDS: Mepolizumab 100 MG VIAL SQ (09:16)
--- NOTE | 2021-10-21 09:19 | NURSING ---
PT. declines to stay for observation following Nucala injection.
== END 2021-10-21 23:59 | disposition home or self-care (01) ==
LOC: MEDOUTP 08:49
PROVIDERS: PCP Family Medicine; Referring Provider Nurse Practitioner Acute Care; Visit Provider Nurse Practitioner Acute Care
DX: J45.50 Severe persistent asthma, uncomplicated (principal)
CPT/HCPCS: 96372; J2182

== ENCOUNTER → 2021-11-10 | Outpatient (CLI) | payer MEDICARE, MEDICAID, OTHER, SELFPAY | END | disposition home or self-care (01) | PROVIDERS: PCP Family Medicine; Visit Provider Physician Assistant | DX: R35.0 Frequency of micturition (principal) | CPT/HCPCS: 87077; 87086; 87088; 87186 ==

== ENCOUNTER → 2021-11-23 | Outpatient (CLI) | payer MEDICARE, MEDICAID, OTHER, SELFPAY ==
[2021-11-23 13:04] VITALS: BP 119/62; PULSE 60; RESP 16; TEMP 36.4; O2SAT 96; BMI 34.0
[2021-11-23] MEDS: Mepolizumab 100 MG VIAL SQ (13:39)
== END | disposition home or self-care (01) ==
LOC: MEDOUTP 12:43
PROVIDERS: PCP Family Medicine; Referring Provider Nurse Practitioner Acute Care; Visit Provider Nurse Practitioner Acute Care
DX: J45.50 Severe persistent asthma, uncomplicated (principal)
CPT/HCPCS: 96372; J2182

== ENCOUNTER → 2021-12-15 | Outpatient (CLI) | payer MEDICARE, MEDICAID, OTHER, SELFPAY ==
[2021-12-15 18:25] LABS: AST(SGOT) 15 U/L (15-37); Alanine Aminotransfer ALT/SGPT 20 U/L (13-56); Albumin, Serum 3.3 g/dL (3.2-5.0); Alkaline Phosphatase 88 U/L (45-117); Anion Gap 6 (5-15); BUN 8 mg/dL (7-18); BUN/Creat Ratio 9.9 RATIO (10-20); Chloride 110 mmol/L (98-107); Cholesterol 276 mg/dL (200); EST Glomerular Filtration Rate 76 mL/min (>60); Est Glom Filt Rate - Afr Amer 91 mL/min (>60); Globulin 3.3 g/dL (2.2-4.2); Glucose 94 mg/dL (74-106); High Density Lipoprotein 57 mg/dL; Potassium 3.7 mmol/L (3.5-5.1); Protein, Total 6.6 g/dL (6.4-8.2); Sodium Level 141 mmol/L (136-145); Triglycerides 73 mg/dL; Very Low Density Lipoprotein 15 mg/dL (5-40)
== END | disposition home or self-care (01) ==
LOC: MTLAB 14:58
PROVIDERS: PCP Family Medicine; Referring Provider Family Medicine; Visit Provider Family Medicine
DX: E78.5 Hyperlipidemia, unspecified (principal); J44.9 Chronic obstructive pulmonary disease, unspecified; R73.03 Prediabetes
CPT/HCPCS: 36415; 80053; 80061

== ENCOUNTER → 2021-12-19 | Outpatient (CLI) | payer MEDICARE, MEDICAID, OTHER, SELFPAY ==
--- NOTE | 2021-12-19 13:45 | CT_ITS ---
STUDY: CT CHEST WITHOUT CONTRAST REASON FOR EXAM: Female, 66 years old. Change in 7 mm nodule with smoking history RADIATION DOSAGE (If Supplied By Facility): CTDIvol = ( 12.32 ) mGy, DLP = ( 394.70 ) mGycm TECHNIQUE: Transaxial imaging was performed without the administration of intravenous contrast material. Multiplanar coronal and sagittal images were reformatted. Individualized dose optimization techniques were used for this CT. COMPARISON: Comparison is made with prior study 06/28/2021. FINDINGS: CHEST Stable small benign-appearing bilateral axillary lymph nodes. Hyperinflation. Emphysematous changes more prominent in the upper lobes. Stable 2 mm noncalcified nodule in the peripheral lateral aspect of the left upper lobe as seen on axial image #28. The previously seen 7 mm nodule in the peripheral lateral aspect of the lingular segment of the left upper lobe is not well visualized at this time. There is no demonstrated pleural abnormality. There are calcifications of the coronary arteries. Minimal degree of anterior pericardial thickening. There are multiple small lymph nodes within the mediastinum, which are normal in size and morphology most compatible with reactive lymph hyperplasia. Normal hilar regions. Normal unenhanced pulmonary arteries. There is atherosclerotic calcification of the aortic arch with tortuosity and elongation of the aortic arch and descending thoracic aorta. There are multi-level degenerative changes of the thoracic spine. There is no demonstrated abnormality of the visualized upper abdomen. CT/Chest without Contrast IMPRESSION: Interval decrease in size of the previously seen nodule in the lingular segment of the left upper lobe. Electronically Signed: Jason Au MD at 15:31 EDT ,
== END | disposition home or self-care (01) ==
LOC: CT 13:35
PROVIDERS: PCP Family Medicine; Referring Provider Nurse Practitioner Acute Care; Visit Provider Nurse Practitioner Acute Care
DX: R91.1 Solitary pulmonary nodule (principal)
CPT/HCPCS: 71250

== ENCOUNTER → 2021-12-27 | Outpatient (CLI) | payer MEDICARE, MEDICAID, OTHER, SELFPAY ==
[2021-12-27 14:25] VITALS: BP 113/74; PULSE 84; TEMP 36.6; O2SAT 93
[2021-12-27] MEDS: Mepolizumab 100 MG VIAL SQ (14:39)
== END | disposition home or self-care (01) ==
LOC: MEDOUTP 14:19
PROVIDERS: PCP Family Medicine; Referring Provider Nurse Practitioner Acute Care; Visit Provider Nurse Practitioner Acute Care
DX: J45.50 Severe persistent asthma, uncomplicated (principal)
CPT/HCPCS: 96372; J2182

== ENCOUNTER → 2022-01-24 | Outpatient (CLI) | payer MEDICARE, MEDICAID, OTHER, SELFPAY ==
[2022-01-24 13:49] VITALS: BP 117/62; PULSE 76; RESP 16; TEMP 36.6; O2SAT 97; BMI 32.8
[2022-01-24] MEDS: Mepolizumab 100 MG VIAL SQ (14:18)
== END | disposition home or self-care (01) ==
LOC: MEDOUTP 13:46
PROVIDERS: PCP Family Medicine; Referring Provider Nurse Practitioner Acute Care; Visit Provider Nurse Practitioner Acute Care
DX: J45.50 Severe persistent asthma, uncomplicated (principal)
CPT/HCPCS: 96372; J2182

== ENCOUNTER → 2022-02-08 | Outpatient (CLI) | payer MEDICARE, MEDICAID, OTHER, SELFPAY | END | disposition home or self-care (01) | LOC: LABSPEC 15:32 | PROVIDERS: PCP Family Medicine; Visit Provider Physician Assistant | DX: N30.90 Cystitis, unspecified without hematuria (principal) | CPT/HCPCS: 87077; 87086; 87088; 87186 ==

== ENCOUNTER → 2022-02-09 | Outpatient (CLI) | payer MEDICARE, MEDICAID, OTHER, SELFPAY | END | disposition home or self-care (01) | LOC: SL 13:15 | PROVIDERS: PCP Family Medicine; Visit Provider Internal Medicine Critical Care Medicine | DX: G47.33 Obstructive sleep apnea (adult) (pediatric) (principal) | CPT/HCPCS: 98960; G0463 ==

== ENCOUNTER → 2022-03-21 | Outpatient (CLI) | payer MEDICARE, MEDICAID, OTHER, SELFPAY ==
[2022-03-21 14:02] VITALS: BP 135/74; PULSE 71; O2SAT 93
[2022-03-21] MEDS: Mepolizumab 100 MG VIAL SQ (14:23)
== END | disposition home or self-care (01) ==
LOC: MEDOUTP 13:51
PROVIDERS: PCP Family Medicine; Referring Provider Nurse Practitioner Acute Care; Visit Provider Nurse Practitioner Acute Care
DX: J45.50 Severe persistent asthma, uncomplicated (principal)
CPT/HCPCS: 96372; J2182

== ENCOUNTER → 2022-04-27 | Outpatient (CLI) | payer MEDICARE, MEDICAID, OTHER, SELFPAY ==
[2022-04-27 12:43] VITALS: BP 125/69; PULSE 82; RESP 16; TEMP 36.4; O2SAT 93; BMI 31.8
[2022-04-27] MEDS: Mepolizumab 100 MG VIAL SQ (12:50)
== END | disposition home or self-care (01) ==
LOC: MEDOUTP 12:36
PROVIDERS: PCP Family Medicine; Referring Provider Nurse Practitioner Acute Care; Visit Provider Nurse Practitioner Acute Care
DX: J45.50 Severe persistent asthma, uncomplicated (principal)
CPT/HCPCS: 96372; J2182

== ENCOUNTER → 2022-05-25 | Outpatient (CLI) | payer MEDICARE, MEDICAID, OTHER, SELFPAY ==
[2022-05-25 13:17] VITALS: BP 97/62; PULSE 91; RESP 18; TEMP 36.4; O2SAT 94; BMI 31.3
[2022-05-25] MEDS: Mepolizumab 100 MG VIAL SQ (13:21)
== END | disposition home or self-care (01) ==
LOC: MEDOUTP 12:55
PROVIDERS: PCP Family Medicine; Referring Provider Nurse Practitioner Acute Care; Visit Provider Nurse Practitioner Acute Care
DX: J45.50 Severe persistent asthma, uncomplicated (principal)
CPT/HCPCS: 96372; J2182

== ENCOUNTER → 2022-06-22 | Outpatient (CLI) | payer MEDICARE, MEDICAID, OTHER, SELFPAY ==
[2022-06-22 13:05] VITALS: BP 101/66; PULSE 72; RESP 16; O2SAT 100; BMI 31.3
[2022-06-22] MEDS: Mepolizumab 100 MG VIAL SQ (13:20)
== END | disposition home or self-care (01) ==
LOC: MEDOUTP 12:50
PROVIDERS: PCP Family Medicine; Referring Provider Nurse Practitioner Acute Care; Visit Provider Nurse Practitioner Acute Care
DX: J45.50 Severe persistent asthma, uncomplicated (principal)
CPT/HCPCS: 96372

== ENCOUNTER → 2022-07-27 | Outpatient (CLI) | payer MEDICARE, MEDICAID, OTHER, SELFPAY ==
[2022-07-27 14:19] VITALS: BP 94/67; PULSE 90; RESP 16; TEMP 36.1; O2SAT 94
[2022-07-27] MEDS: Mepolizumab 100 MG VIAL SQ (14:43)
== END | disposition home or self-care (01) ==
LOC: MEDOUTP 13:55
PROVIDERS: PCP Family Medicine; Referring Provider Nurse Practitioner Acute Care; Visit Provider Nurse Practitioner Acute Care
DX: J45.50 Severe persistent asthma, uncomplicated (principal)
CPT/HCPCS: 96372; J2182

== ENCOUNTER 2022-08-24 13:46 | Outpatient (CLI) | payer MEDICARE, MEDICAID, SELFPAY ==
[2022-08-24 13:57] VITALS: BP 112/62; PULSE 68; RESP 16; TEMP 36.6; O2SAT 98; BMI 31.5
[2022-08-24] MEDS: Mepolizumab 100 MG VIAL SQ (14:27)
== END 2022-08-24 13:47 | disposition home or self-care (01) ==
LOC: MEDOUTP 13:47
PROVIDERS: PCP Family Medicine; Referring Provider Nurse Practitioner Acute Care; Visit Provider Nurse Practitioner Acute Care
DX: J45.50 Severe persistent asthma, uncomplicated (principal)
CPT/HCPCS: 96372; J2182

== ENCOUNTER 2022-09-28 12:43 | Outpatient (CLI) | payer MEDICARE, MEDICAID, SELFPAY ==
[2022-09-28 12:57] VITALS: BP 117/63; PULSE 64; RESP 16; TEMP 36.2; O2SAT 97
[2022-09-28] MEDS: Mepolizumab 100 MG VIAL SQ (13:39)
== END 2022-09-28 12:44 | disposition home or self-care (01) ==
LOC: MEDOUTP 12:43
PROVIDERS: PCP Family Medicine; Referring Provider Nurse Practitioner Acute Care; Visit Provider Nurse Practitioner Acute Care
DX: J45.50 Severe persistent asthma, uncomplicated (principal)
CPT/HCPCS: 96372; J2182

== ENCOUNTER 2022-11-02 15:06 | Outpatient (CLI) | payer MEDICARE, MEDICAID, SELFPAY ==
[2022-11-02 15:11] VITALS: BP 113/70; PULSE 84; RESP 18; TEMP 35.7; O2SAT 95; BMI 32.8
[2022-11-02] MEDS: Mepolizumab 100 MG VIAL SC (15:41)
== END 2022-11-02 15:07 | disposition home or self-care (01) ==
LOC: MEDOUTP 15:06
PROVIDERS: PCP Family Medicine; Referring Provider Nurse Practitioner Acute Care; Visit Provider Nurse Practitioner Acute Care
DX: J45.50 Severe persistent asthma, uncomplicated (principal)
CPT/HCPCS: 96372; J2182

== ENCOUNTER 2022-12-01 13:49 | Outpatient (CLI) | payer MEDICARE, MEDICAID, SELFPAY ==
[2022-12-01 13:54] VITALS: BP 100/53; PULSE 76; RESP 16; TEMP 35.9; O2SAT 92; BMI 33.1
[2022-12-01] MEDS: Mepolizumab 100 MG VIAL SC (14:41)
== END 2022-12-01 13:50 | disposition home or self-care (01) ==
LOC: MEDOUTP 13:49
PROVIDERS: PCP Family Medicine; Referring Provider Nurse Practitioner Acute Care; Visit Provider Nurse Practitioner Acute Care
DX: J45.50 Severe persistent asthma, uncomplicated (principal)
CPT/HCPCS: 96372; J2182

== ENCOUNTER 2022-12-15 07:10 | Emergency (ER) | payer MEDICARE, MEDICAID, SELFPAY ==
[2022-12-15 07:11] VITALS: BP 144/91; PULSE 105; RESP 24; TEMP 36.1; O2SAT 91; BMI 33.6
[2022-12-15 07:20] VITALS: PULSE 96; RESP 20
[2022-12-15 07:23] VITALS: BP 165/84; PULSE 87; RESP 20; TEMP 36.6; O2SAT 92
--- NOTE | 2022-12-15 07:24 | EKG12_ITS ---
Test Reason : SOB Blood Pressure : / mmHG Vent. Rate : 087 BPM Atrial Rate : 087 BPM P-R Int : 144 ms QRS Dur : 072 ms QT Int : 370 ms P-R-T Axes : 066 073 052 degrees QTc Int : 445 ms Normal sinus rhythm with sinus arrhythmia Cannot rule out Inferior infarct , age undetermined Abnormal ECG Confirmed by NICOLA MENDEZ, DIANE ([id number]), offline editor JOAQUÍN HOLLEY ([id number]) on 12/21/2022 2:11:56 PM Referred By: LARISA Confirmed By:DIANE PETERSEN MD
[2022-12-15 07:25] VITALS: O2SAT 92
--- NOTE | 2022-12-15 07:27 | ED.VIS.DYS ---
HPI History of Present Illness Chief Complaint: Shortness of Breath Informant: patient Onset/Context/Timing Onset: Days Context: gradual Timing: Continuous Quality: Positive for Wheezing Current Severity: Moderate Maximum Severity: Moderate Worsened by: Coughing Relieved by: Albuterol Associated Symptoms cough and clear sputum; Negative for fever or chills Chest Pain: Positive for None Narrative Narrative: Female history of COPD not on home O2 CAD and peripheral vascular disease on Plavix. Patient states she has had URI symptoms since probably Sunday with increasing shortness of breath. No fever. No chest pain she is has been with coughing. Not exertional. No hemoptysis. No leg pain or swelling. No history of DVT or PE or risk factors. States that she is audibly wheezing and did take a aerosol treatment at home this morning. That helped but she still short of breath. PE Risk Factors: Negative for Cancer, OCP + Smoking + > 35, Prior DVT or PE, Recent immobilization, Recent surgery or Recent travel Prior similar symptoms: Yes Recent Illness/Hospitalization: No PFSH PFSH Medical History Atherosclerotic heart disease of [place] coronary artery without angina pectoris Cardiac murmur, unspecified Central sleep apnea Chest pain, unspecified COPD (chronic obstructive pulmonary disease) COVID-19 TORREZ (dyspnea on exertion) Hyperlipidemia Nicotine dependence in remission Obesity PHILIP (obstructive sleep apnea) Peripheral vascular disease Urinary frequency Urinary tract infection with hematuria UTI (urinary tract infection) Home Medications clopidogrel 75 mg tablet 75 mg PO DAILY 10/23/15 [History Last Taken 05/10/18] spacer #1 ea 07/29/19 [Rx Last Taken Unknown] Disability Placard #1 ea 01/04/21 [Rx Last Taken Unknown] albuterol sulfate 2.5 mg/3 mL (0.083 %) solution for nebulization 2.5 mg (3 mL) inhalation Q4H PRN #120 vials 08/01/22 [Rx Last Taken Unknown] albuterol sulfate 90 mcg/actuation aerosol inhaler 2 puff inhalation Q4H PRN shortness of breath or wheezing #8.5 grams 08/01/22 [Rx Last Taken Unknown] loratadine 10 mg capsule 10 mg PO QDAY #90 caps 08/01/22 [Rx Last Taken Unknown] fluvoxamine 100 mg tablet mg 11/02/22 [History Last Taken Unknown] prednisone 20 mg tablet 40 mg (2 x 20 mg) PO DAILY 5 days #10 tabs 12/15/22 [Rx Last Taken Unknown] Allergy/AdvReac Type Severity Reaction Status Date / Time codeine Allergy Itching Verified 12/15/22 07:11 morphine Allergy Itching Verified 12/15/22 07:11 doxycycline AdvReac Severe severe Verified 12/15/22 07:11 headaches and muscle spasms to the chest Family History Mother Cancer Lung CA Father Emphysema Chronic Bronchitis, in 80s. Sister Diabetes CAD (coronary artery disease) Sister Heart disease Brother Respiratory abnormalities Cancer Surgical History H/O: hysterectomy S/P surgical manipulation of ankle joint Social History Smoking Status: Former smoker Tobacco: How many years used: 40 how long ago did patient quit smoking: about 8 years ago second hand exposure: No alcohol intake: never substance use type: does not use what type of physical activity do you participate in: none ROS ROS ED ROS Narrative Cough. Clear sputum. Shortness of breath and wheezing. Review of Systems ROS Unobtainable: Denies due to encephalopathy Constitutional Constitutional ED: Denies chills or fever(s) Eyes Eyes: Denies blurry vision ENT ENT ED: Denies ear pain, rhinorrhea or sore throat Cardiovascular Cardiovascular: Denies chest pain or palpitations Respiratory/Chest Respiratory/Chest: Reports cough, dyspnea and sputum Gastrointestinal Gastrointestinal: Denies abdominal pain, diarrhea, melena, nausea or vomiting Genitourinary Genitourinary ED: Denies dysuria Musculoskeletal Musculoskeletal: Denies arthralgias Integumentary Denies abscess Neurologic Neurologic: Denies headache(s) Psychiatric Psychiatric: Denies anxiety Endocrine Endocrinology: Denies cold intolerance Hematologic/Lymphatic Hematologic/Lymphatic: Denies easy bleeding or easy bruising Allergic/Immunologic Allergic/Immunologic ED: Denies mouth swelling or tongue swelling EXAM Physical Exam Narrative Exam Narrative: Six 7-year-old female vital signs are stable. Pulse ox 91% on room air. She is sitting upright in bed audibly wheezing. H EENT exam unremarkable. Moist membranes. Neck nontender no JVD. No lymphadenopathy. Lungs expiratory wheezing throughout bilaterally. Equal symmetrical. No rhonchi or rales. Heart regular rhythm rate about 85 no murmur. Chest wall nontender. Abdomen soft nontender. Moving all 4 extremities. Calves are nontender without edema or cords. She is awake and alert. Answering questions following commands. Const Vital Signs: 12/15/22 07:11 12/15/22 07:23 12/15/22 07:25 Temperature 96.9 F L 98 F Temperature Source Temporal Oral Pulse Rate 105 H 87 Respiratory Rate 24 H 20 H Respiratory Effort Short of Breath Respiratory Depth Shallow Respiratory Pattern Tachypnea Blood Pressure 144/91 H 165/84 H Blood Pressure Mean 108 111 Pulse Ox 91 92 Oxygen Delivery Method Room Air Room Air Room Air 12/15/22 07:20 12/15/22 07:32 Temperature Temperature Source Pulse Rate 96 Respiratory Rate 20 H Respiratory Effort Respiratory Depth Respiratory Pattern Normal Blood Pressure Blood Pressure Mean Pulse Ox Oxygen Delivery Method Room Air Positive well nourished and well developed; Negative for cachectic, contractures or unkempt General Appearance ED: well developed; Negative for unkempt, cachectic, contractures, NAD or pallor Nutritional Appearance: Negative for cachectic HEENT Reports moist mucous membranes; Denies TM's clear Negative for atraumatic, trauma or tenderness Tympanic Membrane ED: Negative for TM's clear Eyes PERRL and EOMs intact bilaterally General Eye ED: Negative for pale conjunctiva or scleral icterus Neck no lymphadenopathy, supple, no meningeal signs and no JVD General: Negative for tenderness Lymph Lymphatic: Negative for other Chest Wall Chest: Negative for other Resp No normal respiratory effort and No clear to auscultation bilaterally Resp Narrative: Increased work of breathing. Increased respiratory rate. Auscultation: wheezes Cardio regular rate, regular rhythm, S1 normal heart sound, S2 normal heart sound and no murmurs Rate: Negative for bradycardia or tachycardic Rhythm: Negative for abnormal rhythm GI non-tender, non-distended and no masses Inspection: Negative for other Auscultation: normoactive bowel sounds Palpation: soft; Negative for tender or guarding Back/Spine no CVA tenderness and normal to inspection General Back: Negative for CVA tenderness Extremity normal to inspection General Extremety ED: Negative for edema or tenderness General Extremity: Negative for edema Neuro oriented x3 and CN's II-XII intact bilaterally Sensorium / Orientation: alert, oriented to person, oriented to place and oriented to time; Negative for orientation impaired, confused or lethargic Speech: speech normal Motor Exam: strength 5/5 throughout Psych mental status grossly normal Appearance: Negative for unkempt Attitude: No agitated Mood & Affect: Negative for depressed, anxious or tearful Thought Process: normal thought process Skin no wounds and skin turgor normal General Skin Exam: Negative for jaundice or pallor Lesions: no lesions Rashes: no rashes Trauma: Negative for abrasion MDM MDM MDM Narrative Medical decision making narrative: 67-year-old female with a shortness of breath that I think is secondary to COPD flare rule out URI, COVID or pneumonia. Rule out cardiac etiology. She will get a chest x-ray and labs. EKG. Treated with Solu-Medrol IV DuoNeb and albuterol aerosols. Exam patient is doing quite well at 9:40 AM. Wheezing is resolved. She feels much better breathing is much better. We went over all of her test results. Also her positive COVID result. She will be discharged home. She has nebulizer and medications at home. She will be given a prescription for prednisone for the next 5 days. Follow-up if not improving or return if worse. History & Record Review Discussion w/independent historian: Patient Lab Data Attestation: I reviewed the patient's lab results. Lab results narrative: C unremarkable. White count of 6. H&H 14 and 43. Platelets 321. Lites show a gap 7 normal BUN and creatinine of 11 and 1. Glucose 109. Troponin 19. Labs: Laboratory Results - last 24 hr 12/15/22 07:41 WBC 6.1 RBC 4.90 Hgb 14.4 Hct 43.4 MCV 88.6 MCH 29.4 MCHC 33.2 RDW Std Deviation 40.5 RDW Coeff of Grace 12.5 Plt Count 321 MPV 9.2 Immature Gran % (Auto) 0.500 Neut % (Auto) 46.2 L Lymph % (Auto) 40.1 [place] % (Auto) 11.0 H Eos % (Auto) 1.5 Baso % (Auto) 0.7 Absolute Neuts (auto) 2.8 Absolute Lymphs (auto) 2.44 Nucleated RBC % 0 Sodium 138 Potassium 3.5 Chloride 109 H Carbon Dioxide 22.0 Anion Gap 7 BUN 11 Creatinine 1.00 Estim Creat Clear Calc 45.16 Est GFR (MDRD) Af Amer 71 Est GFR (MDRD) Non-Af 59 L BUN/Creatinine Ratio 11.1 Glucose 109 H Calcium 9.7 Troponin I High Sens 19 Radiography Chest X-Ray - ED: 1 View, Read by ED Physician, Read by Radiologist, Heart, Lungs, Mediastinum, Bony Structures, No Acute Disease and Chronic Changes Diagnostic Testing: Clinical Impression(s) from Imaging Studies Chest X-Ray 12/15/22 07:45 IMPRESSION: No radiographic evidence of acute cardiopulmonary disease. Electronically Signed: Apolonia Keenan MD at 8:06 EDT , Chest x-ray, portable, single view interpreted both by myself and the radiologist shows no acute abnormality. Normal cardiac silhouette. Normal lung ledesma. Rhythm Strip Rhythm Strip: Sinus Rhythm Rate: 87 Ectopy: None EKG Initial EKG: Attestation: I personally reviewed and interpreted this EKG as follows: Interpretation: Sinus Rhythm and No Acute Injury Pattern Comments: Normal sinus rhythm rate 87 no acute signs of VT. Discharge Plan Triage Chief Complaint: Shortness of Breath ED Provider: Jagdish Day Dx/Rx/DC Orders Clinical Impression: COVID-19, History of CAD (coronary artery disease), COPD exacerbation Instructions: Human Coronaviruses, ED COPD Flare Prescriptions: New prednisone 20 mg tablet 40 mg PO DAILY 5 Days Qty: 10 0RF No Action (DME) spacer See Rx Instructions .Route .MEDSUPPLY Qty: 1 0RF Rx Instructions: As directed (DME) Disability Placard See Rx Instructions .Route .MEDSUPPLY Qty: 1 0RF Rx Instructions: expires 12/10/2025 albuterol sulfate 2.5 mg /3 mL (0.083 %) solution for nebulization 2.5 mg INHALATION Q4H PRN Qty: 120 6RF Rx Instructions: Use q4 hours and PRN for wheezing albuterol sulfate 90 mcg/actuation HFA aerosol inhaler 2 puff inhalation Q4H PRN (Reason: shortness of breath or wheezing) Qty: 8.5 6RF Rx Instructions: administer with spacer loratadine 10 mg capsule 10 mg PO QDAY Qty: 90 3RF clopidogrel 75 MG tablet 75 mg PO DAILY fluvoxamine 100 mg tablet Patient Comments: TAKE 1 TABLET BY MOUTH ONCE DAILY Primary Care Provider: Kamilah Patel Referrals: Kamilah Patel MD [Primary Care Provider] - 3-5 Days if not improving Activity Restrictions/Additional Instructions: Plenty of fluids and rest. Your nebulizer at home as needed for wheezing and shortness of breath. Prednisone 40 mg a day for the next 5 days starting tomorrow. Follow-up if not improving or return if worse. Disposition Disposition: Home, Self Care
[2022-12-15] MEDS: Albuterol 2.5 MG/3 ML VIAL.NEB. INHALATION ×2 (07:31→07:32)
[2022-12-15] MEDS: Ipratropium/Albuterol Sulfate 3 ML AMPUL.NEB INHALATION (07:31)
[2022-12-15] MEDS: MethylPREDNISolone 125 MG/2 ML Vial IV (07:39)
--- NOTE | 2022-12-15 07:45 | RAD_ITS ---
INDICATION: chest pain EXAMINATION/TECHNIQUE: X-RAY - XR Chest 1 View COMPARISON: Prior study dated: Chest CT dated December 19, 2021 FINDINGS: LINES/DEVICES: None. LUNGS: No new consolidation, edema or effusion. No pneumothorax. MEDIASTINUM AND CARDIOVASCULAR STRUCTURES: Cardiac silhouette not enlarged. Central airways and mediastinal contour are unremarkable. BONES AND SOFT TISSUES: Unremarkable. RAD/Chest 1 View (Portable) IMPRESSION: No radiographic evidence of acute cardiopulmonary disease. Electronically Signed: Apolonia Keenan MD at 8:06 EDT ,
[2022-12-15 07:53] LABS: Absolute Lymphocyte Count 2.44 X10^3/uL (0.83-4.51); Absolute Neutrophil Count 2.8 X10^3/uL (2.0-7.7); Basophil# 0.04 X10^3/uL; Basophil% 0.7 % (0-1); Eosinophil# 0.09 X10^3/uL; Eosinophils% 1.5 % (0-5); Hematocrit 43.4 % (37-47); Hemoglobin 14.4 g/dL (12.0-15.0); Lymphocyte # 2.44 X10^3/ul (0.83-4.51); Lymphocyte % 40.1 % (19-41); Mean Corp Hgb Conc 33.2 g/dL (32-36); Mean Corpuscular Hgb 29.4 pg (27.0-32.0); Mean Corpuscular Volume 88.6 fL (81-99); Mean Platelet Vol. 9.2 fl (6.2-12.0); Monocyte# 0.67 X10^3/uL; NRBC Flagged by Analyzer 0 % (0-5); Neutrophil # 2.81 X10^3/uL (2.7-7.7); Neutrophil % 46.2 % (47-70); Platelet Count 321 K/mm3 (150-450); RBC Distribution Width CV 12.5 % (11.6-14.6); RBC Distribution Width SD 40.5 fl (35.1-43.9); White Blood Count 6.1 K/mm3 (4.4-11.0)
[2022-12-15 08:11] LABS: Anion Gap 7 (5-15); BUN 11 mg/dL (7-18); BUN/Creat Ratio 11.1 RATIO (10-20); Calcium,Total 9.7 mg/dL (8.5-10.1); Chloride 109 mmol/L (98-107); EST Glomerular Filtration Rate 59 mL/min (>60); Est Glom Filt Rate - Afr Amer 71 mL/min (>60); Estimated Creatinine Clearance 45.16 ml/min; Glucose 109 mg/dL (74-106); Potassium 3.5 mmol/L (3.5-5.1); Sodium Level 138 mmol/L (136-145); Troponin-I HS 19 pg/mL (3.0-54.0)
[2022-12-15 09:38] VITALS: BP 119/70; PULSE 99; RESP 20; O2SAT 99
== END 2022-12-15 10:00 | disposition home or self-care (01) ==
PROVIDERS: Emergency Provider Emergency Medicine; PCP Family Medicine; Visit Provider Emergency Medicine
DX: U07.1 COVID-19 (principal); J44.1 Chronic obstructive pulmonary disease with (acute) exacerbation; I73.9 Peripheral vascular disease, unspecified; I25.10 Atherosclerotic heart disease of native coronary artery without angina pectoris; E66.9 Obesity, unspecified; Z68.33 Body mass index [BMI] 33.0-33.9, adult; Z79.02 Long term (current) use of antithrombotics/antiplatelets; Z79.899 Other long term (current) drug therapy; Z87.891 Personal history of nicotine dependence; Z86.16 Personal history of COVID-19
CPT/HCPCS: 71045; 80048; 84484; 85025; 87426; 93005; 94640; 96374; 99282; A4216

== ENCOUNTER → 2022-12-21 | Outpatient (CLI) | payer MEDICARE, MEDICAID, SELFPAY ==
--- NOTE | 2022-12-21 14:20 | CT_ITS ---
STUDY: LOW DOSE CT LUNG CANCER SCREENING REASON FOR EXAM: Female, 67 years old. Patient smoked 2 packs per day for 39 years. RADIATION DOSAGE (If Supplied By Facility): CTDIvol = ( 2.39 ) mGy, DLP = ( 75.94 ) mGycm TECHNIQUE: No contrast was administered. Low dose technique was utilized (average mAS-38 and kVp 120). 1.25 mm axial source images with a slice interval of 1.25-mm were reconstructed in lung windows. 2.5 mm axial source images with a slice interval of 2.5-mm were reconstructed in lung windows. 5.0 mm axial source images with a slice interval of 5.0-mm were reconstructed in soft tissue windows. COMPARISON: Comparison is made with prior study dated December 19, 2021. NODULES: Stable 2 mm noncalcified nodule in the peripheral lateral aspect of the left upper lobe as seen on axial image #61. Emphysema: Hyperinflation. Emphysematous changes. Endobronchial lesion: None Aorta: Atherosclerotic plaque formation. CORONARY ARTERIES: Coronary artery calcification is seen. Heart: Unremarkable Pulmonary artery: Unremarkable Mediastinal nodes: Small benign appearing mediastinal lymph nodes. Other chest and abdominal findings: CT/Low Dose CT Lung Screening IMPRESSION: Lung-RADS category 2 - Continue annual screening with LDCT in 12 months. IMPORTANT NOTES FOR USE: ACR Lung-RADS Version 1.1 Assessment Categories Release Date: 2018 Category: Coded 0-4 bases on nodule(s) with highest degree of suspicion. Negative screen is defined as categories 1 and 2; a positive screen is defined as categories 3 and 4. Category 3 and 4A nodules that are unchanged on interval CT should be coded as category 2, and individuals returned to screening in 12 months. Category 4X: Category 3 or 4 nodules with additional imaging findings that increase the suspicion of lung cancer, such as spiculation, GGN that doubles in size in 1 year, enlarged lymph notes, etc. Category Modifiers: S (significant finding unrelated to lung cancer) Electronically Signed: Jason Au MD at 15:35 EDT ,
== END | disposition home or self-care (01) ==
LOC: CT 14:16
PROVIDERS: PCP Family Medicine; Referring Provider Nurse Practitioner Acute Care; Visit Provider Nurse Practitioner Acute Care
DX: F17.210 Nicotine dependence, cigarettes, uncomplicated (principal)
CPT/HCPCS: 71271

== ENCOUNTER 2022-12-29 12:48 | Outpatient (CLI) | payer MEDICARE, MEDICAID, SELFPAY ==
[2022-12-29 13:09] VITALS: BP 110/57; PULSE 75; RESP 16; TEMP 36; O2SAT 95
[2022-12-29] MEDS: Mepolizumab 100 MG VIAL SC (13:26)
== END 2022-12-29 12:49 | disposition home or self-care (01) ==
LOC: MEDOUTP 12:48
PROVIDERS: PCP Family Medicine; Referring Provider Nurse Practitioner Acute Care; Visit Provider Nurse Practitioner Acute Care
DX: J45.50 Severe persistent asthma, uncomplicated (principal)
CPT/HCPCS: 96372; J2182

== ENCOUNTER 2023-01-26 13:13 | Outpatient (CLI) | payer MEDICARE, MEDICAID, SELFPAY ==
[2023-01-26 13:19] VITALS: BP 120/75; PULSE 83; RESP 18; TEMP 36.1; O2SAT 93; BMI 32.4
[2023-01-26] MEDS: Mepolizumab 100 MG VIAL SC (13:43)
== END 2023-01-26 13:14 | disposition home or self-care (01) ==
LOC: MEDOUTP 13:14
PROVIDERS: PCP Family Medicine; Referring Provider Nurse Practitioner Acute Care; Visit Provider Nurse Practitioner Acute Care
DX: J45.50 Severe persistent asthma, uncomplicated (principal)
CPT/HCPCS: 96372; J2182

== ENCOUNTER 2023-02-23 12:49 | Outpatient (CLI) | payer MEDICARE, MEDICAID, SELFPAY ==
[2023-02-23 13:08] VITALS: BP 103/57; PULSE 64; RESP 16; TEMP 36.4; O2SAT 98
[2023-02-23] MEDS: Mepolizumab 100 MG VIAL SC (13:19)
== END 2023-02-23 12:50 | disposition home or self-care (01) ==
LOC: MEDOUTP 12:50
PROVIDERS: PCP Family Medicine; Referring Provider Nurse Practitioner Acute Care; Visit Provider Nurse Practitioner Acute Care
DX: J45.50 Severe persistent asthma, uncomplicated (principal)
CPT/HCPCS: 96372; J2182

== ENCOUNTER → 2023-03-26 | Outpatient (CLI) | payer MEDICARE, MEDICAID, SELFPAY ==
--- NOTE | 2023-03-26 13:35 | BI_ITS ---
MAMMOGRAPHY - BILATERAL SCREENING REASON FOR EXAM: Female, 68 years old. Routine annual screening examination. PERTINENT HISTORY: Non-contributory. TECHNIQUE: Digital bilateral breast mila (3D mammographic acquisition) in the CC and MLO projections. 2-D mediolateral oblique (MLO) and craniocaudad (CC) views of both breasts were obtained. CAD: Full Field Digital Mammography with Computer Added Detection was performed. COMPARISON: Comparison is made with prior study dated October 29, 2019 and November 15, 2017. FINDINGS: Breast Composition: The breasts are almost entirely fatty. There are no dominant masses or suspicious calcifications. Stable 3 mm well-defined nodule in the retroareolar areolar region of the left breast. No other significant abnormalities are identified. There has been no significant change since the prior study. BI/SCRN MAMM (CAD)W/MILA BILAT IMPRESSION: Stable bilateral screening mammogram. Yearly follow-up mammogram recommended. (A) ASSESSMENT CATEGORY: BIRADS Category 2: Benign. A letter regarding these results will be sent to the patient by the facility within 30 days. Approximately 10% of breast cancers are not detected by mammography. A normal mammogram should not delay biopsy of a clinically suspicious abnormality. [id number] Electronically Signed: Jason Au MD at 14:39 EST ,
== END | disposition home or self-care (01) ==
LOC: OPBI 13:33
PROVIDERS: PCP Family Medicine; Referring Provider Obstetrics & Gynecology Gynecology; Visit Provider Obstetrics & Gynecology Gynecology
DX: Z12.31 Encounter for screening mammogram for malignant neoplasm of breast (principal); N95.1 Menopausal and female climacteric states; N94.10 Unspecified dyspareunia; N95.2 Postmenopausal atrophic vaginitis
CPT/HCPCS: 77063; 77067

== ENCOUNTER 2023-04-20 13:10 | Outpatient (CLI) | payer MEDICARE, MEDICAID, OTHER, SELFPAY ==
[2023-04-20 13:17] VITALS: BP 122/64; PULSE 73; RESP 16; TEMP 36.3; O2SAT 96; BMI 32.8
[2023-04-20] MEDS: Mepolizumab 100 MG VIAL SC (13:46)
--- OUTSIDE RECORDS SUMMARY | 2023-04-20 14:07 | XMS RPT_ITS | CCD ---
Author Name Unknown Address [address] [place] [address] Organization [facility] Care Team Providers Care Ear Flap Binder Name Role Phone Yensho KEYBOARD SPECIALIST, Brisa A Unavailable Unavailab le Marie KEYBOARD SPECIALIST, Kristen Little Unavailable Unavaila ble Yensho KEYBOARD SPECIALIST, Brisa A Unavailable Unavailab le Tod KEYBOARD SPECIALIST, Leilani N Unavailable Unavailab le Tod KEYBOARD SPECIALIST, Leilani N Unavailable Unavailab le Cogar KEYBOARD SPECIALIST, Mariel N Unavailable [phone] Cogar KEYBOARD SPECIALIST, Mariel N Unavailable [phone] Allergies Allergy Classification Reported Allergen(s) Allergy Type Date of Onset Reaction(s) Facility (14 sources) codeine drug allergy 11-22-2015 vomitting and itching [facility] Work Phone: (14 sources) morphine drug allergy 11-22-2015 swellling, turns red [facility] Work Phone: Medications Completed/Discontinued Medications Medication Drug Class(es) Dates Sig (Normalized) Sig (Original) [id number]-DI ELL PERTUSSIS (2 sources) Inactivated Corynebacterium Diphtheriae Vaccine, Inactivated Clostridium Tetani Vaccine Start: 11-22-2015 End: 01-03-2016 ADACEL 5-2-15.5 LF-MCG/0.5 SUSP [place] 1 dose [id number] ELL PERTUSSIS [id number] Kristen Marie KEYBOARD SPECIALIST Problems Active Problems Problem Classification Problem Date Documented Da te Episodic/Chronic Chronic obstructive pulmonary disease and bronchiectasis (7 sources) Chronic obstructive lung disease; Translations: [Chronic obstructive pulmonary disease, unspecified] Onset: 12-02-2015 12-02-2015 Chronic Coronary atherosclerosis and other heart disease (14 sources) Coronary arteriosclerosis; Translations: [Atherosclerotic heart disease of [place] coronary artery without angina pectoris] Onset: 12-30-2015 12-30-2015 Chronic Disorders of lipid metabolism (7 sources) Hyperlipidemia; Translations: [Hyperlipidemia, unspecified] Onset: 12-30-2015 12-30-2015 Chronic Other nutritional; endocrine; and metabolic disorders (7 sources) Obesity; Translations: [Obesity, unspecified] Onset: 12-02-2015 12-02-2015 Chronic Peripheral and visceral atherosclerosis (7 sources) Peripheral vascular disease; Translations: [Peripheral vascular disease, unspecified] Onset: 12-31-2015 12-31-2015 Chronic Residual codes; unclassified (8 sources) Central sleep apnea syndrome; Translations: [Obstructive sleep apnea syndrome] Onset: 12-02-2015 02-03-2016 Chronic Residual codes; unclassified (6 sources) Obstructive sleep apnea syndrome; Translations: [Obstructive sleep apnea (adult) (pediatric)] Onset: 12-02-2015 12-02-2015 Chronic Substance-related disorders (7 sources) Tobacco dependence in remission; Translations: [Nicotine dependence, unspecified, in remission] Onset: 12-02-2015 12-02-2015 Chronic Past or Other Problems Problem Classification Problem Date Documented Da te Episodic/Chronic Genitourinary symptoms and ill-defined conditions (2 sources) Increased frequency of urination; Translations: [Frequency of micturition] Onset: 11-09-2016 11-09-2016 Episodic Heart valve disorders (7 sources) Heart murmur; Translations: [Cardiac murmur, unspecified] Onset: 12-30-2015 12-30-2015 Episodic Nonspecific chest pain (7 sources) Chest pain; Translations: [Chest pain, unspecified] Onset: 12-30-2015 12-30-2015 Episodic Other lower respiratory disease (7 sources) Dyspnea on exertion; Translations: [Other forms of dyspnea] Onset: 12-02-2015 12-02-2015 Episodic Urinary tract infections (4 sources) Urinary tract infectious disease; Translations: [Urinary tract infection, site not specified] Onset: 10-09-2016 10-09-2016 Episodic Results Test Name Value Interpretation Reference Range Facil ity Vital Signs Date Time Vital Sign Value Performing Clinician Facility 11-09-2016 15:43-0400 BMI (Body Mass Index) 27.87 kg/m2 Mariel Coronado LPN [facility] Work Phone: 11-09-2016 15:43-0400 Body Temperature 97.7 [degF] Mariel Coronado LPN [facility] Work Phone: 11-09-2016 15:43-0400 BP Diastolic 80 mm[Hg] Mariel Coronado KEYBOARD SPECIALIST [facility] Work Phone: 11-09-2016 15:43-0400 BP Systolic 126 mm[Hg] Mariel Coronado KEYBOARD SPECIALIST [facility] Work Phone: 11-09-2016 15:43-0400 Height 162.56 cm Mariel Coronado KEYBOARD SPECIALIST [facility] Work Phone: 11-09-2016 15:43-0400 Pulse (Heart Rate) 79 /min Mariel Coronado KEYBOARD SPECIALIST [facility] Work Phone: 11-09-2016 15:43-0400 Respiratory Rate 15 /min Mariel Coronado KEYBOARD SPECIALIST [facility] Work Phone: 11-09-2016 15:43-0400 Weight 73.66 kg Mariel Coronado KEYBOARD SPECIALIST [facility] Work Phone: 10-09-2016 12:46-0400 BMI (Body Mass Index) 27.94 kg/m2 Leilani Baron LPN [facility] Work Phone: 10-09-2016 12:46-0400 Body Temperature 97.7 [degF] Leilani Baron KEYBOARD SPECIALIST [facility] Work Phone: 10-09-2016 12:46-0400 BP Diastolic 72 mm[Hg] Leilani Baron KEYBOARD SPECIALIST [facility] Work Phone: 10-09-2016 12:46-0400 BP Systolic 108 mm[Hg] Leilani Baron KEYBOARD SPECIALIST [facility] Work Phone: 10-09-2016 12:46-0400 Height 162.56 cm Leilani Baron KEYBOARD SPECIALIST [facility] Work Phone: 10-09-2016 12:46-0400 Pulse (Heart Rate) 64 /min Leilani Baron LPN [facility] Work Phone: 10-09-2016 12:46-0400 Pulse Oximetry 95 % Leilani Baron LPN [facility] Work Phone: 10-09-2016 12:46-0400 Respiratory Rate 12 /min Leilani Baron LPN [facility] Work Phone: 10-09-2016 12:46-0400 Weight 73.85 kg Leilani Baron LPN [facility] Work Phone: 09-20-2016 13:04-0400 BMI (Body Mass Index) 28.87 kg/m2 Brisa Yensho KEYBOARD SPECIALIST [facility] Work Phone: 09-20-2016 13:04-0400 Body Temperature 98.4 [degF] Brisa Yensho KEYBOARD SPECIALIST [facility] Work Phone: 09-20-2016 13:04-0400 BP Diastolic 73 mm[Hg] Brisa Yensho KEYBOARD SPECIALIST [facility] Work Phone: 09-20-2016 13:04-0400 BP Systolic 104 mm[Hg] Brisa Yensho KEYBOARD SPECIALIST [facility] Work Phone: 09-20-2016 13:04-0400 Height 160.02 cm Brisa Yensho KEYBOARD SPECIALIST [facility] Work Phone: 09-20-2016 13:04-0400 Pulse (Heart Rate) 70 /min Brisa Yensho KEYBOARD SPECIALIST [facility] Work Phone: 09-20-2016 13:04-0400 Pulse Oximetry 96 % Brisa Yensho KEYBOARD SPECIALIST [facility] Work Phone: 09-20-2016 13:04-0400 Respiratory Rate 18 /min Brisa Yensho KEYBOARD SPECIALIST [facility] Work Phone: 09-20-2016 13:04-0400 Weight 73.94 kg Brisa Lizzy HEBERT [facility] Work Phone: 02-03-2016 12:57-0400 BMI (Body Mass Index) 31.88 kg/m2 Kristen Marie LPN [facility] Work Phone: 02-03-2016 12:57-0400 Body Temperature 96.62 [degF] Kristen Marie LPN [facility] Work Phone: 02-03-2016 12:57-0400 Body Temperature 96.6 [degF] Kristengabriele Marie KEYBOARD SPECIALIST [facility] Work Phone: 02-03-2016 12:57-0400 BP Diastolic 73 mm[Hg] Kristen Marie LPN [facility] Work Phone: 02-03-2016 12:57-0400 BP Systolic 140 mm[Hg] Kristen Marie LPN [facility] Work Phone: 02-03-2016 12:57-0400 BSA (Body Surface Area) 1.85 m2 Kristen Marie LPN [facility] Work Phone: 02-03-2016 12:57-0400 Height 160.02 cm Kristen Marie LPN [facility] Work Phone: 02-03-2016 12:57-0400 Pulse (Heart Rate) 91 /min Kristen Marie LPN [facility] Work Phone: 02-03-2016 12:57-0400 Pulse Oximetry 97 % Kristen Marie LPN [facility] Work Phone: 02-03-2016 12:57-0400 Respiratory Rate 18 /min Kristen Marie LPN [facility] Work Phone: 02-03-2016 12:57-0400 Weight 81.82 kg Kristen Leeach KEYBOARD SPECIALIST [facility] Work Phone: 02-03-2016 12:57-0400 Weight 81.65 kg Kristen Marie KEYBOARD SPECIALIST [facility] Work Phone: 12-30-2015 14:51-0400 Heart rate 62 /min Kristen Marie KEYBOARD SPECIALIST [facility] Work Phone: Procedures Date Procedure Procedure Detail Performing Clinician Start: 11-09-2016 End: 11-09-2016 Urinalysis Mariel Cliff KEYBOARD SPECIALIST Start: 11-09-2016 End: 11-09-2016 Urnls dip stick/tablet rgnt non-auto w/o micrscp Catracho Clifton PA Work Phone: Start: 09-20-2016 End: 09-20-2016 Dietary management education, guidance, and counseling Brisa Ball LPN Start: 02-03-2016 End: 02-03-2016 Dietary management education, guidance, and counseling Kristen Frank KEYBOARD SPECIALIST Start: 02-03-2016 End: 03-13-2016 DMB Cathie Esquivel [employer] Work Phone: Start: 02-03-2016 End: 03-13-2016 Follow Up Appt 6 months Cathie hernandez CNP Work Phone: Start: 02-03-2016 End: 02-04-2016 Referral to neurologist Cathie hernandez CNP Work Phone: Start: 01-03-2016 End: 03-13-2016 [facility] Cathie Esquivel [employer] Work Phone: Start: 01-03-2016 End: 03-13-2016 Follow Up Appt 1 month Cathie sawant CNP Work Phone: Start: 12-30-2015 End: 02-08-2016 Arterial exam Khai Birmingham MD Start: 12-30-2015 End: 02-08-2016 Echocardiography Khai Birmingham MD Start: 12-30-2015 End: 12-30-2015 Electrocardiogram, complete Khai mariscal MD Start: 12-30-2015 End: 12-30-2015 Follow Up Appt 6 weeks Khai Birmingham MD Start: 12-30-2015 End: 12-30-2015 MMM Khai Birmingham MD Start: 12-30-2015 End: 02-08-2016 Nuclear stress test -Lexiscan Khai denson MD Start: 12-30-2015 End: 03-13-2016 Titration with Follow up (pt not on cpap) Cathie De Jesus CNP Work Phone: Start: 12-02-2015 End: 12-30-2015 Complete sleep workup (PSG,CPAP as indicated) & Follow up Anthony Jalloh DO Work Phone: Start: 12-02-2015 End: 12-30-2015 Pulmonary stress test/simple Anthony rock DO Work Phone: Plan of Treatment Date Care Activity Detail Author Start: 03-19-2017 End: 03-19-2017 Appointment Appointment [facility] Work Phone: Start: 11-09-2016 End: 11-09-2016 Appointment Appointment [facility] Work Phone: Start: 10-09-2016 End: 10-09-2016 Appointment Appointment [facility] Work Phone: Start: 09-20-2016 End: 09-20-2016 Appointment Appointment [facility] Work Phone: Start: 09-20-2016 End: 09-20-2016 [facility] Work Phone: Start: 09-20-2016 End: 09-20-2016 Follow Up Appt 6 months Follow Up Appt 6 months [facility] Work Phone: Start: 02-03-2016 End: 03-13-2016 DMB DMB [facility] Work Phone: Start: 02-03-2016 End: 03-13-2016 Follow Up Appt 6 months Follow Up Appt 6 months [facility] Work Phone: Start: 02-03-2016 End: 03-13-2016 Neurology Referral Neurology Referral [facility] Work Phone: Start: 01-25-2016 End: 01-25-2016 Vascular Surgery Vascular Surgery Janak Crawley MD, [address], [place], [address] [facility] Work Phone: Start: 01-03-2016 End: 03-13-2016 [facility] Work Phone: Start: 01-03-2016 End: 03-13-2016 Follow Up Appt 1 month Follow Up Appt 1 month [facility] Work Phone: Start: 12-30-2015 End: 12-30-2015 Arterial exam Arterial exam [facility] Work Phone: Start: 12-30-2015 End: 12-30-2015 Echocardiography Echocardiogram (complete) [facility] Work Phone: Start: 12-30-2015 End: 12-30-2015 Electrocardiogram, complete EKG (In office) [facility] Phone: Start: 12-30-2015 End: 12-30-2015 Follow Up Appt 6 weeks Follow Up Appt 6 weeks [facility] Work Phone: Start: 12-30-2015 End: 12-30-2015 Follow Up Appt Other Follow Up Appt Other [facility] Work Phone: Start: 12-30-2015 End: 12-30-2015 MMM MMM [facility] Work Phone: Start: 12-30-2015 End: 12-30-2015 Nuclear stress test -Lexiscan Nuclear stress test -Lexiscan [facility] Phone: Start: 12-30-2015 End: 03-13-2016 Titration with Follow up (pt not on cpap) Titration with Follow up (pt not on cpap) [facility] Phone: Start: 12-02-2015 End: 12-30-2015 Complete sleep workup (PSG,CPAP as indicated) & Follow up Complete sleep workup (PSG,CPAP as indicated) & Follow up [facility] Phone: Start: 12-02-2015 End: 12-02-2015 [facility] Phone: Start: 12-02-2015 End: 12-02-2015 Follow Up Appt 1 month Follow Up Appt 1 month [facility] Phone: Start: 12-02-2015 End: 12-02-2015 Pulmonary Function Test - complete Pulmonary Function Test - complete [facility] Phone: Start: 12-02-2015 End: 12-30-2015 Pulmonary stress test/simple Pulmonary stress testing; simple (eg, 6-minute walk) [facility] Phone: Patient Education [facility] Phone: Immunizations Immunization Date Immunization Notes Care Provider Roxi yoder 11-22-2015 diphtheria, tetanus toxoids and acellular pertussis vaccine, unspecified formulation; Translations: [[id number] PERTUSSIS] Kristen Marie LPN [facility] Phone: 11-22-2015 pneumococcal vaccine , unspecified formulation; Translations: [PNEUMOCOCCAL 13-FAVIAN CONJ VACC] Kristen Marie LPN [facility] Phone: 11-22-2015 varicella zoster imm une globulin; Translations: [ZOSTER VACCINE LIVE] Kristen Marie LPN [facility] Phone: Additional Source Comments FOR RECORDS PERTAINING TO PATIENTS WHO ARE OR HAVE BEEN ENROLLED IN A CHEMICAL DEPENDENCY/SUBSTANCEABUSE PROGRAM, SOME INFORMATION MAY BE OMITTED. This clinical summary was aggregated from multiple sources. Caution should be exercised in using it in the provision of clinical care. This summary normalizes information from multiple sources, and as a consequence, information in this document may materially change the coding, format and clinical context of patient data. In addition, data may be omitted in some cases. CLINICAL DECISIONS SHOULD BE BASED ON THE PRIMARY CLINICAL RECORDS. [facility] provides no warranty or guarantee of the accuracy or completeness of information in this document.
== END 2023-04-20 13:11 | disposition home or self-care (01) ==
LOC: MEDOUTP 13:12
PROVIDERS: PCP Family Medicine; Referring Provider Nurse Practitioner Acute Care; Visit Provider Nurse Practitioner Acute Care
DX: J45.50 Severe persistent asthma, uncomplicated (principal)
CPT/HCPCS: 96372; J2182

== ENCOUNTER 2023-05-18 12:18 | Outpatient (CLI) | payer MEDICARE, MEDICAID, OTHER, SELFPAY ==
[2023-05-18 12:30] VITALS: BP 124/77; PULSE 78; RESP 16; TEMP 36.4; O2SAT 98; BMI 33.6
--- OUTSIDE RECORDS SUMMARY | 2023-05-18 12:41 | XMS RPT_ITS | CCD ---
Author Name Unknown Address [address] [place] [address] Organization [facility] Care Team Providers Care Vice President Talent Management Name Role Phone Yensho COFFEE GROWER, Brisa A Unavailable Unavailab le Marie COFFEE GROWER, Kristen Little Unavailable Unavaila ble Yensho COFFEE GROWER, Brisa A Unavailable Unavailab le Tod COFFEE GROWER, Leilani N Unavailable Unavailab le Tod COFFEE GROWER, Leilani N Unavailable Unavailab le Cogar COFFEE GROWER, Mariel N Unavailable Cogar COFFEE GROWER, Mariel N Unavailable Allergies Allergy Classification Reported Allergen(s) Allergy Type Date of Onset Reaction(s) Facility (14 sources) codeine drug allergy 11-22-2015 vomitting and itching [facility] Work Phone: (14 sources) morphine drug allergy 11-22-2015 swellling, turns red [facility] Work Phone: Medications Completed/Discontinued Medications Medication Drug Class(es) Dates Sig (Normalized) Sig (Original) [id number] ELL PERTUSSIS (2 sources) Inactivated Corynebacterium Diphtheriae Vaccine, Inactivated Clostridium Tetani Vaccine Start: 11-22-2015 End: 01-03-2016 ADACEL 5-2-15.5 LF-MCG/0.5 SUSP [place] 1 dose [id number] ELL PERTUSSIS [id number] Kristen Marie COFFEE GROWER Problems Active Problems Problem Classification Problem Date Documented Da te Episodic/Chronic Chronic obstructive pulmonary disease and bronchiectasis (7 sources) Chronic obstructive lung disease; Translations: [Chronic obstructive pulmonary disease, unspecified] Onset: 12-02-2015 12-02-2015 Chronic Coronary atherosclerosis and other heart disease (14 sources) Coronary arteriosclerosis; Translations: [Atherosclerotic heart disease of [place] coronary artery without angina pectoris] Onset: 12-30-2015 [...] Mass Index) 27.87 kg/m2 Mariel Coronado LPN [facility] Work Phone: 11-09-2016 15:43-0400 Body Temperature 97.7 [degF] Mariel Coronado LPN [facility] Work Phone: 11-09-2016 15:43-0400 BP Diastolic 80 mm[Hg] Mariel Coronado COFFEE GROWER [facility] Work Phone: 11-09-2016 15:43-0400 BP Systolic 126 mm[Hg] Mariel Coronado COFFEE GROWER [facility] Work Phone: 11-09-2016 15:43-0400 Height 162.56 cm Mariel Coronado COFFEE GROWER [facility] Work Phone: 11-09-2016 15:43-0400 Pulse (Heart Rate) 79 /min Mariel Coronado COFFEE GROWER [facility] Work Phone: 11-09-2016 15:43-0400 Respiratory Rate 15 /min Mariel Coronado COFFEE GROWER [facility] Work Phone: 11-09-2016 15:43-0400 Weight 73.66 kg Mariel Coronado COFFEE GROWER [facility] Work Phone: 10-09-2016 12:46-0400 BMI (Body Mass Index) 27.94 kg/m2 Leilani Baron LPN [facility] Work Phone: 10-09-2016 12:46-0400 Body Temperature 97.7 [degF] Leilani Baron COFFEE GROWER [facility] Work Phone: 10-09-2016 12:46-0400 BP Diastolic 72 mm[Hg] Leilani Baron COFFEE GROWER [facility] Work Phone: 10-09-2016 12:46-0400 BP Systolic 108 mm[Hg] Leilani Baron COFFEE GROWER [facility] Work Phone: 10-09-2016 12:46-0400 Height 162.56 cm Leilani Baron COFFEE GROWER [facility] Work Phone: 10-09-2016 12:46-0400 Pulse (Heart Rate) 64 /min Leilani Baron LPN [facility] Work Phone: 10-09-2016 12:46-0400 Pulse Oximetry 95 % Leilani Baron LPN [facility] Work Phone: 10-09-2016 12:46-0400 Respiratory Rate 12 /min Leilani Baron LPN [facility] Work Phone: 10-09-2016 12:46-0400 Weight 73.85 kg Leilani Baron LPN [facility] Work Phone: 09-20-2016 13:04-0400 BMI (Body Mass Index) 28.87 kg/m2 Brisa Yensho COFFEE GROWER [facility] Work Phone: 09-20-2016 13:04-0400 Body Temperature 98.4 [degF] Brisa Yensho COFFEE GROWER [facility] Work Phone: 09-20-2016 13:04-0400 BP Diastolic 73 mm[Hg] Brisa Yensho COFFEE GROWER [facility] Work Phone: 09-20-2016 13:04-0400 BP Systolic 104 mm[Hg] Brisa Yensho COFFEE GROWER [facility] Work Phone: 09-20-2016 13:04-0400 Height 160.02 cm Brisa Yensho COFFEE GROWER [facility] Work Phone: 09-20-2016 13:04-0400 Pulse (Heart Rate) 70 /min Brisa Yensho COFFEE GROWER [facility] Work Phone: 09-20-2016 13:04-0400 Pulse Oximetry 96 % Brisa Yensho COFFEE GROWER [facility] Work Phone: 09-20-2016 13:04-0400 Respiratory Rate 18 /min Brisa Yensho COFFEE GROWER [facility] Work Phone: 09-20-2016 13:04-0400 Weight 73.94 kg Brisa Lizzy HEBERT [facility] Work Phone: 02-03-2016 12:57-0400 BMI (Body Mass Index) 31.88 kg/m2 Kristen Marie LPN [facility] Work Phone: 02-03-2016 12:57-0400 Body Temperature 96.62 [degF] Kristen Marie LPN [facility] Work Phone: 02-03-2016 12:57-0400 Body Temperature 96.6 [degF] Kristengabriele Marie COFFEE GROWER [facility] Work Phone: 02-03-2016 12:57-0400 BP Diastolic 73 mm[Hg] Kristen Marie LPN [facility] Work Phone: 02-03-2016 12:57-0400 BP Systolic 140 mm[Hg] Kristen Marie LPN [facility] Work Phone: 02-03-2016 12:57-0400 BSA (Body Surface Area) 1.85 m2 Kristen Marie LPN [facility] Work Phone: 02-03-2016 12:57-0400 Height 160.02 cm Kristen Marie LPN [facility] Work Phone: 02-03-2016 12:57-0400 Pulse (Heart Rate) 91 /min Kristen Marie LPN [facility] Work Phone: 02-03-2016 12:57-0400 Pulse Oximetry 97 % Kristen Marie LPN [facility] Work Phone: 02-03-2016 12:57-0400 Respiratory Rate 18 /min Kristen Marie LPN [facility] Work Phone: 02-03-2016 12:57-0400 Weight 81.82 kg Kristen Leeach COFFEE GROWER [facility] Work Phone: 02-03-2016 12:57-0400 Weight 81.65 kg Kristen Marie COFFEE GROWER [facility] Work Phone: 12-30-2015 14:51-0400 Heart rate 62 /min Kristen Marie COFFEE GROWER [facility] Work Phone: Procedures Date Procedure Procedure Detail Performing Clinician Start: 11-09-2016 End: 11-09-2016 Urinalysis Mariel Cliff COFFEE GROWER Start: 11-09-2016 End: 11-09-2016 Urnls dip stick/tablet rgnt non-auto w/o micrscp Catracho Clifton PA Work Phone: Start: 09-20-2016 End: 09-20-2016 Dietary management education, guidance, and counseling Brisa Ball LPN Start: 02-03-2016 End: 02-03-2016 Dietary management education, guidance, and counseling Kristen Frank COFFEE GROWER Start: 02-03-2016 End: 03-13-2016 DMB Cathie Esquivel BARTENDER MANAGER Work Phone: Start: 02-03-2016 End: 03-13-2016 Follow Up Appt 6 months Cathie hernandez CNP Work Phone: Start: 02-03-2016 End: 02-04-2016 Referral to neurologist Cathie hernandez CNP Work Phone: Start: 01-03-2016 End: 03-13-2016 [facility] Cathie Esquivel BARTENDER MANAGER Work Phone: Start: 01-03-2016 End: 03-13-2016 Follow [...] End: 03-19-2017 Appointment Appointment [facility] Work Phone: Start: 11-09-2016 End: 11-09-2016 Appointment Appointment [facility] Work Phone: Start: 10-09-2016 End: 10-09-2016 Appointment Appointment [facility] Work Phone: Start: 09-20-2016 End: 09-20-2016 Appointment Appointment [facility] Work Phone: Start: 09-20-2016 End: 09-20-2016 [facility] Work Phone: Start: 09-20-2016 End: 09-20-2016 Follow Up Appt 6 months Follow Up Appt 6 months [facility] Work Phone: Start: 02-03-2016 End: 03-13-2016 DMB DMB [facility] Work Phone: Start: 02-03-2016 End: 03-13-2016 Follow Up Appt 6 months Follow Up Appt 6 months [facility] Work Phone: Start: 02-03-2016 End: 03-13-2016 Neurology Referral Neurology Referral [facility] Work Phone: Start: 01-25-2016 End: 01-25-2016 Vascular Surgery Vascular Surgery Janak Crawley MD, [address], [place], [address] [facility] Work Phone: Start: 01-03-2016 End: 03-13-2016 [facility] Work Phone: Start: 01-03-2016 End: 03-13-2016 Follow Up Appt 1 month Follow Up Appt 1 month [facility] Work Phone: Start: 12-30-2015 End: 12-30-2015 Arterial exam Arterial exam [facility] Work Phone: Start: 12-30-2015 End: 12-30-2015 Echocardiography Echocardiogram (complete) [facility] Work Phone: Start: 12-30-2015 End: 12-30-2015 Electrocardiogram, complete EKG (In office) [facility] Phone: Start: 12-30-2015 End: 12-30-2015 Follow Up Appt 6 weeks Follow Up Appt 6 weeks [facility] Work Phone: Start: 12-30-2015 End: 12-30-2015 Follow Up Appt Other Follow Up Appt Other [facility] Work Phone: Start: 12-30-2015 End: 12-30-2015 MMM MMM [facility] Work Phone: Start: 12-30-2015 End: 12-30-2015 Nuclear stress test -Lexiscan Nuclear stress test -Lexiscan [facility] Phone: Start: 12-30-2015 End: 03-13-2016 Titration with Follow up (pt not on cpap) Titration with Follow up (pt not on cpap) [facility] Phone: Start: 12-02-2015 End: 12-30-2015 Complete sleep workup (PSG,CPAP as indicated) & Follow up Complete sleep workup (PSG,CPAP as indicated) & Follow up [facility] Phone: Start: 12-02-2015 End: 12-02-2015 [facility] Phone: Start: 12-02-2015 End: 12-02-2015 Follow Up Appt 1 month Follow Up Appt 1 month [facility] Phone: Start: 12-02-2015 End: 12-02-2015 Pulmonary Function Test - complete Pulmonary Function Test - complete [facility] Phone: Start: 12-02-2015 End: 12-30-2015 Pulmonary stress test/simple Pulmonary stress testing; simple (eg, 6-minute walk) [facility] Phone: Patient Education [facility] Phone: Immunizations Immunization Date Immunization Notes Care Provider Roxi yoder 11-22-2015 diphtheria, tetanus toxoids and acellular pertussis vaccine, unspecified formulation; Translations: [[id number] PERTUSSIS] Kristen Marie LPN [facility] Phone: 11-22-2015 pneumococcal vaccine , unspecified formulation; Translations: [PNEUMOCOCCAL 13-FAVIAN CONJ VACC] Kristen Marie LPN [facility] Phone: 11-22-2015 varicella zoster imm une globulin; Translations: [ZOSTER VACCINE LIVE] Kristen Marie LPN [facility] Phone: Additional Source Comments FOR RECORDS PERTAINING [...] BE BASED ON THE PRIMARY CLINICAL RECORDS. [facility]. provides no warranty or guarantee of the accuracy or completeness of information in this document.
[2023-05-18] MEDS: Mepolizumab 100 MG VIAL SC (12:58)
== END 2023-05-18 12:19 | disposition home or self-care (01) ==
PROVIDERS: PCP Family Medicine; Referring Provider Nurse Practitioner Acute Care; Visit Provider Nurse Practitioner Acute Care
DX: J45.50 Severe persistent asthma, uncomplicated (principal)
CPT/HCPCS: 96372; J2182

== ENCOUNTER 2023-06-15 12:18 | Outpatient (CLI) | payer MEDICARE, OTHER, SELFPAY ==
--- OUTSIDE RECORDS SUMMARY | 2023-06-15 12:33 | XMS RPT_ITS | CCD ---
Author Name Unknown Address [address] [place] [address] Organization [facility] Care Team Providers Care Paleology Professor Name Role Phone Yensho POUNCER, Brisa A Unavailable Unavailab le Marie POUNCER, Kristen Little Unavailable Unavaila ble Yensho POUNCER, Brisa A Unavailable Unavailab le Tod POUNCER, Leilani N Unavailable Unavailab le Tod POUNCER, Leilani N Unavailable Unavailab le Cogar POUNCER, Mariel N Unavailable Cogar POUNCER, Mariel N Unavailable Allergies Allergy Classification Reported Allergen(s) Allergy Type Date of Onset Reaction(s) Facility (14 sources) codeine drug allergy 11-22-2015 vomitting and itching [facility] Work Phone: (14 sources) morphine drug allergy 11-22-2015 swellling, turns red [facility] Work Phone: Medications Completed/Discontinued Medications Medication Drug Class(es) Dates Sig (Normalized) Sig (Original) [id number] ELL PERTUSSIS (2 sources) Inactivated Corynebacterium Diphtheriae Vaccine, Inactivated Clostridium Tetani Vaccine Start: 11-22-2015 End: 01-03-2016 ADACEL 5-2-15.5 LF-MCG/0.5 SUSP [place] 1 dose [id number] ELL PERTUSSIS [id number] Kristen Marie POUNCER Problems Active Problems Problem Classification Problem Date Documented Da te Episodic/Chronic Chronic obstructive pulmonary disease and bronchiectasis (7 sources) Chronic obstructive lung disease; Translations: [Chronic obstructive pulmonary disease, unspecified] Onset: 12-02-2015 12-02-2015 Chronic Coronary atherosclerosis and other heart disease (14 sources) Coronary arteriosclerosis; Translations: [Atherosclerotic heart disease of [place] coronary artery without angina pectoris] Onset: 12-30-2015 [...] Mass Index) 27.87 kg/m2 Mariel Coronado LPN [facility] Work Phone: 11-09-2016 15:43-0400 Body Temperature 97.7 [degF] Mariel Coronado LPN [facility] Work Phone: 11-09-2016 15:43-0400 BP Diastolic 80 mm[Hg] Mariel Coronado POUNCER [facility] Work Phone: 11-09-2016 15:43-0400 BP Systolic 126 mm[Hg] Mariel Corondao POUNCER [facility] Work Phone: 11-09-2016 15:43-0400 Height 162.56 cm Mariel Coronado POUNCER [facility] Work Phone: 11-09-2016 15:43-0400 Pulse (Heart Rate) 79 /min Mariel Coronado POUNCER [facility] Work Phone: 11-09-2016 15:43-0400 Respiratory Rate 15 /min Mariel Coronado POUNCER [facility] Work Phone: 11-09-2016 15:43-0400 Weight 73.66 kg Mariel Coronado POUNCER [facility] Work Phone: 10-09-2016 12:46-0400 BMI (Body Mass Index) 27.94 kg/m2 Leilani Baron LPN [facility] Work Phone: 10-09-2016 12:46-0400 Body Temperature 97.7 [degF] Leilani Baron POUNCER [facility] Work Phone: 10-09-2016 12:46-0400 BP Diastolic 72 mm[Hg] Leilani Baron POUNCER [facility] Work Phone: 10-09-2016 12:46-0400 BP Systolic 108 mm[Hg] Leilani Baron POUNCER [facility] Work Phone: 10-09-2016 12:46-0400 Height 162.56 cm Leilani Baron POUNCER [facility] Work Phone: 10-09-2016 12:46-0400 Pulse (Heart Rate) 64 /min Leilani Baron LPN [facility] Work Phone: 10-09-2016 12:46-0400 Pulse Oximetry 95 % Leilani Baron LPN [facility] Work Phone: 10-09-2016 12:46-0400 Respiratory Rate 12 /min Leilani Baron LPN [facility] Work Phone: 10-09-2016 12:46-0400 Weight 73.85 kg Leilani Baron LPN [facility] Work Phone: 09-20-2016 13:04-0400 BMI (Body Mass Index) 28.87 kg/m2 Brisa Yensho POUNCER [facility] Work Phone: 09-20-2016 13:04-0400 Body Temperature 98.4 [degF] Brisa Yensho POUNCER [facility] Work Phone: 09-20-2016 13:04-0400 BP Diastolic 73 mm[Hg] Brisa Yensho POUNCER [facility] Work Phone: 09-20-2016 13:04-0400 BP Systolic 104 mm[Hg] Brisa Yensho POUNCER [facility] Work Phone: 09-20-2016 13:04-0400 Height 160.02 cm Brisa Yensho POUNCER [facility] Work Phone: 09-20-2016 13:04-0400 Pulse (Heart Rate) 70 /min Brisa Yensho POUNCER [facility] Work Phone: 09-20-2016 13:04-0400 Pulse Oximetry 96 % Brisa Yensho POUNCER [facility] Work Phone: 09-20-2016 13:04-0400 Respiratory Rate 18 /min Brisa Yensho POUNCER [facility] Work Phone: 09-20-2016 13:04-0400 Weight 73.94 kg Brisa Lizzy HEBERT [facility] Work Phone: 02-03-2016 12:57-0400 BMI (Body Mass Index) 31.88 kg/m2 Kristen Marie LPN [facility] Work Phone: 02-03-2016 12:57-0400 Body Temperature 96.62 [degF] Kristen Marie LPN [facility] Work Phone: 02-03-2016 12:57-0400 Body Temperature 96.6 [degF] Kristengabriele Marie POUNCER [facility] Work Phone: 02-03-2016 12:57-0400 BP Diastolic 73 mm[Hg] Kristen Marie LPN [facility] Work Phone: 02-03-2016 12:57-0400 BP Systolic 140 mm[Hg] Kristen Marie LPN [facility] Work Phone: 02-03-2016 12:57-0400 BSA (Body Surface Area) 1.85 m2 Kristen Marie LPN [facility] Work Phone: 02-03-2016 12:57-0400 Height 160.02 cm Kristen Marie LPN [facility] [place] Work Phone: 02-03-2016 12:57-0400 Pulse (Heart Rate) 91 /min Kristen Marie LPN [facility] Work Phone: 02-03-2016 12:57-0400 Pulse Oximetry 97 % Kristen Marie LPN [facility] [place] Work Phone: 02-03-2016 12:57-0400 Respiratory Rate 18 /min Kristen Marie LPN [facility] Work Phone: 02-03-2016 12:57-0400 Weight 81.82 kg Kristen Leeach POUNCER [facility] Work Phone: 02-03-2016 12:57-0400 Weight 81.65 kg Kristen Marie POUNCER [facility] Work Phone: 12-30-2015 14:51-0400 Heart rate 62 /min Kristen Marie POUNCER [facility] Work Phone: Procedures Date Procedure Procedure Detail Performing Clinician Start: 11-09-2016 End: 11-09-2016 Urinalysis Mariel Cliff POUNCER Start: 11-09-2016 End: 11-09-2016 Urnls dip stick/tablet rgnt non-auto w/o micrscp Catracho Clifton PA Work Phone: Start: 09-20-2016 End: 09-20-2016 Dietary management education, guidance, and counseling Brisa Ball LPN Start: 02-03-2016 End: 02-03-2016 Dietary management education, guidance, and counseling Kristen Frank POUNCER Start: 02-03-2016 End: 03-13-2016 DMB Cathie Esquivel HOTEL SERVICE MANAGER Work Phone: Start: 02-03-2016 End: 03-13-2016 Follow Up Appt 6 months Cathie hernandez CNP Work Phone: Start: 02-03-2016 End: 02-04-2016 Referral to neurologist Cathie hernandez CNP Work Phone: Start: 01-03-2016 End: 03-13-2016 [facility] Cathie Esquivel HOTEL SERVICE MANAGER Work Phone: Start: 01-03-2016 End: 03-13-2016 [...] End: 03-19-2017 Appointment Appointment [facility] Work Phone: Start: 11-09-2016 End: 11-09-2016 Appointment Appointment [facility] Work Phone: Start: 10-09-2016 End: 10-09-2016 Appointment Appointment [facility] Work Phone: Start: 09-20-2016 End: 09-20-2016 Appointment Appointment [facility] Work Phone: Start: 09-20-2016 End: 09-20-2016 [facility] Work Phone: Start: 09-20-2016 End: 09-20-2016 Follow Up Appt 6 months Follow Up Appt 6 months [facility] Work Phone: Start: 02-03-2016 End: 03-13-2016 DMB DMB [facility] Work Phone: Start: 02-03-2016 End: 03-13-2016 Follow Up Appt 6 months Follow Up Appt 6 months [facility] Work Phone: Start: 02-03-2016 End: 03-13-2016 Neurology Referral Neurology Referral [facility] Work Phone: Start: 01-25-2016 End: 01-25-2016 Vascular Surgery Vascular Surgery Janak Crawley MD, [address], [place], [address] [facility] Work Phone: Start: 01-03-2016 End: 03-13-2016 [facility] [place] [facility] Work Phone: Start: 01-03-2016 End: 03-13-2016 Follow Up Appt 1 month Follow Up Appt 1 month [facility] [place] Work Phone: Start: 12-30-2015 End: 12-30-2015 Arterial exam Arterial exam [facility] Work Phone: Start: 12-30-2015 End: 12-30-2015 Echocardiography Echocardiogram (complete) [facility] Work Phone: Start: 12-30-2015 End: 12-30-2015 Electrocardiogram, complete EKG (In office) [facility] Phone: Start: 12-30-2015 End: 12-30-2015 Follow Up Appt 6 weeks Follow Up Appt 6 weeks [facility] Work Phone: Start: 12-30-2015 End: 12-30-2015 Follow Up Appt Other Follow Up Appt Other [facility] Work Phone: Start: 12-30-2015 End: 12-30-2015 MMM MMM [facility] Work Phone: Start: 12-30-2015 End: 12-30-2015 Nuclear stress test -Lexiscan Nuclear stress test -Lexiscan [facility] Phone: Start: 12-30-2015 End: 03-13-2016 Titration with Follow up (pt not on cpap) Titration with Follow up (pt not on cpap) [facility] Phone: Start: 12-02-2015 End: 12-30-2015 Complete sleep workup (PSG,CPAP as indicated) & Follow up Complete sleep workup (PSG,CPAP as indicated) & Follow up [facility] Phone: Start: 12-02-2015 End: 12-02-2015 [facility] Phone: Start: 12-02-2015 End: 12-02-2015 Follow Up Appt 1 month Follow Up Appt 1 month [facility] Phone: Start: 12-02-2015 End: 12-02-2015 Pulmonary Function Test - complete Pulmonary Function Test - complete [facility] Phone: Start: 12-02-2015 End: 12-30-2015 Pulmonary stress test/simple Pulmonary stress testing; simple (eg, 6-minute walk) [facility] Phone: Patient Education [facility] Phone: Immunizations Immunization Date Immunization Notes Care Provider Roxi yoder 11-22-2015 diphtheria, tetanus toxoids and acellular pertussis vaccine, unspecified formulation; Translations: [[id number] PERTUSSIS] Kristen Marie LPN [facility] Phone: 11-22-2015 pneumococcal vaccine , unspecified formulation; Translations: [PNEUMOCOCCAL 13-FAVIAN CONJ VACC] Kristen Marie LPN [facility] Phone: 11-22-2015 varicella zoster imm une globulin; Translations: [ZOSTER VACCINE LIVE] Kristen Marie LPN [facility] Phone: Additional Source Comments FOR RECORDS PERTAINING [...] BE BASED ON THE PRIMARY CLINICAL RECORDS. [facility]. provides no warranty or guarantee of the accuracy or completeness of information in this document.
[2023-06-15 12:37] VITALS: BP 110/65; PULSE 77; RESP 14; TEMP 36.1; O2SAT 96; BMI 33.6
[2023-06-15] MEDS: Mepolizumab 100 MG VIAL SC (13:04)
== END 2023-06-15 12:19 | disposition home or self-care (01) ==
LOC: MEDOUTP 12:18
PROVIDERS: PCP Family Medicine; Referring Provider Nurse Practitioner Acute Care; Visit Provider Nurse Practitioner Acute Care
DX: J45.50 Severe persistent asthma, uncomplicated (principal)
CPT/HCPCS: 96372; J2182

== ENCOUNTER 2023-08-15 13:34 | Outpatient (CLI) | payer MEDICARE, OTHER, SELFPAY ==
[2023-08-15 13:38] VITALS: BP 113/68; PULSE 89; RESP 16; TEMP 36.3; O2SAT 96
[2023-08-15] MEDS: Mepolizumab 100 MG VIAL SC (14:18)
== END 2023-08-15 13:35 | disposition home or self-care (01) ==
LOC: MEDOUTP 13:34
PROVIDERS: PCP Family Medicine; Referring Provider Nurse Practitioner Acute Care; Visit Provider Nurse Practitioner Acute Care
DX: J45.50 Severe persistent asthma, uncomplicated (principal)
CPT/HCPCS: 96372; J2182

== ENCOUNTER 2023-09-14 12:28 | Outpatient (CLI) | payer MEDICARE, OTHER, SELFPAY ==
[2023-09-14 12:35] VITALS: BP 139/69; PULSE 87; RESP 16; TEMP 36.4; O2SAT 96; BMI 34.2
[2023-09-14] MEDS: Mepolizumab 100 MG VIAL SC (12:57)
== END 2023-09-14 23:59 | disposition home or self-care (01) ==
LOC: MEDOUTP 12:28
PROVIDERS: PCP Family Medicine; Referring Provider Nurse Practitioner Acute Care; Visit Provider Nurse Practitioner Acute Care
DX: J45.50 Severe persistent asthma, uncomplicated (principal)
CPT/HCPCS: 96372; J2182

== ENCOUNTER → 2023-09-25 | Outpatient (CLI) | payer MEDICARE, OTHER, SELFPAY ==
[2023-09-25 14:54] LABS: Absolute Lymphocyte Count 3.53 X10^3/uL (0.83-4.51); Absolute Neutrophil Count 6.4 X10^3/uL (2.0-7.7); Basophil# 0.05 X10^3/uL; Basophil% 0.5 % (0-1); Eosinophil# 0.05 X10^3/uL; Eosinophils% 0.5 % (0-5); Hematocrit 40.2 % (37-47); Hemoglobin 13.4 g/dL (12.0-15.0); Lymphocyte # 3.53 X10^3/ul (0.83-4.51); Lymphocyte % 32.8 % (19-41); Mean Corp Hgb Conc 33.3 g/dL (32-36); Mean Corpuscular Hgb 29.1 pg (27.0-32.0); Mean Corpuscular Volume 87.2 fL (81-99); Mean Platelet Vol. 8.3 fl (6.2-12.0); Monocyte# 0.57 X10^3/uL; Monocyte% 5.3 % (0-10); NRBC Flagged by Analyzer 0 % (0-5); Neutrophil # 6.41 X10^3/uL (2.7-7.7); Neutrophil % 59.6 % (47-70); Platelet Count 333 K/mm3 (150-450); RBC Distribution Width SD 41.1 fl (35.1-43.9); Red Blood Count 4.61 M/mm3 (4.2-5.4); White Blood Count 10.8 K/mm3 (4.4-11.0)
[2023-09-25 15:13] LABS: ALB/GLOB Ratio 0.9 RATIO (0.9-2.4); AST(SGOT) 10 U/L (15-37); Alanine Aminotransfer ALT/SGPT 15 U/L (13-56); Albumin, Serum 3.3 g/dL (3.2-5.0); Alkaline Phosphatase 88 U/L (45-117); Anion Gap 9 (5-15); BUN 15 mg/dL (7-18); BUN/Creat Ratio 14.6 RATIO (10-20); Calcium,Total 9.5 mg/dL (8.5-10.1); Chloride 107 mmol/L (98-107); Cholesterol 277 mg/dL (200); Creatinine, Serum 1.03 mg/dL (0.55-1.02); EST Glomerular Filtration Rate 57 mL/min (>60); Est Glom Filt Rate - Afr Amer 68 mL/min (>60); Globulin 3.5 g/dL (2.2-4.2); Glucose 109 mg/dL (74-106); High Density Lipoprotein 74 mg/dL; Magnesium 2.1 mg/dL (1.6-2.6); Potassium 3.4 mmol/L (3.5-5.1); Protein, Total 6.8 g/dL (6.4-8.2); Sodium Level 140 mmol/L (136-145); Triglycerides 66 mg/dL; Very Low Density Lipoprotein 13 mg/dL (5-40)
[2023-09-25 15:20] LABS: Vitamin B12 310 pg/mL (211-911)
== END | disposition home or self-care (01) ==
LOC: PAVLAB 14:15
PROVIDERS: PCP Family Medicine; Referring Provider Family Medicine; Visit Provider Family Medicine
DX: Z51.81 Encounter for therapeutic drug level monitoring (principal); E78.5 Hyperlipidemia, unspecified; R25.2 Cramp and spasm; E53.8 Deficiency of other specified B group vitamins; E83.42 Hypomagnesemia; D64.9 Anemia, unspecified
CPT/HCPCS: 36415; 80053; 80061; 82607; 83735; 85025

== ENCOUNTER 2023-10-12 12:21 | Outpatient (CLI) | payer MEDICARE, OTHER, SELFPAY ==
[2023-10-12 12:27] VITALS: BP 117/65; PULSE 83; RESP 16; TEMP 36; O2SAT 97; BMI 35.4
[2023-10-12] MEDS: Mepolizumab 100 MG VIAL SC (12:49)
== END 2023-10-12 23:59 | disposition home or self-care (01) ==
LOC: MEDOUTP 12:21
PROVIDERS: PCP Family Medicine; Referring Provider Nurse Practitioner Acute Care; Visit Provider Nurse Practitioner Acute Care
DX: J45.50 Severe persistent asthma, uncomplicated (principal)
CPT/HCPCS: 96372; J2182

== ENCOUNTER 2023-11-09 12:08 | Outpatient (CLI) | payer MEDICARE, OTHER, SELFPAY ==
[2023-11-09 12:17] VITALS: BP 144/82; PULSE 76; RESP 16; O2SAT 94
[2023-11-09] MEDS: Mepolizumab 100 MG VIAL SC (12:57)
== END 2023-11-09 23:59 | disposition home or self-care (01) ==
LOC: MEDOUTP 12:09
PROVIDERS: PCP Family Medicine; Referring Provider Nurse Practitioner Acute Care; Visit Provider Nurse Practitioner Acute Care
DX: J45.50 Severe persistent asthma, uncomplicated (principal)
CPT/HCPCS: 96372; J2182

== ENCOUNTER 2023-12-14 12:34 | Outpatient (CLI) | payer MEDICARE, OTHER, SELFPAY ==
[2023-12-14 12:47] VITALS: BP 151/82; PULSE 80; RESP 18; TEMP 35.8; O2SAT 96
[2023-12-14] MEDS: Mepolizumab 100 MG VIAL SC (13:11)
== END 2023-12-14 23:59 | disposition home or self-care (01) ==
LOC: MEDOUTP 12:35
PROVIDERS: PCP Family Medicine; Referring Provider Nurse Practitioner Acute Care; Visit Provider Nurse Practitioner Acute Care
DX: J45.50 Severe persistent asthma, uncomplicated (principal)
CPT/HCPCS: 96372; J2182

== ENCOUNTER → 2023-12-28 | Outpatient (CLI) | payer MEDICARE, OTHER, SELFPAY ==
--- NOTE | 2023-12-28 13:47 | CT_ITS ---
EXAM: CT CHEST, LUNG CANCER SCREENING WITHOUT INTRAVENOUS CONTRAST CLINICAL INDICATION: smoking history 1.5 packs per day x40 years. TECHNIQUE: Helically acquired images were obtained of the chest without intravenous contrast using low dose (LDCT) lung cancer screening protocol. This CT exam was performed using one or more of the following dose reduction techniques: automated exposure control, adjustment of the mA and/or kV according to patient size, and/or use of iterative reconstruction technique. COMPARISON: 12/21/2022; 11/30/2017; 12/29/2015. FINDINGS: LUNGS AND PLEURAL SPACES: 2 mm pleural-based nodule in the periphery of the left upper lobe as seen best on image 65, series 2. This is unchanged. There are no new pulmonary nodules or additional nodules identified. No pneumothorax. HEART: Coronary artery calcifications. Heart size is normal. No pericardial effusion. MEDIASTINUM: No significant abnormality. No mediastinal or hilar adenopathy. Esophagus is unremarkable. No hiatal hernia. THYROID: No significant abnormality. No thyroid lesions. BONES/JOINTS: Degenerative changes in the spine. [place] right scoliotic curvature. No suspicious lytic or blastic abnormality. VASCULATURE: Atherosclerosis. LYMPH NODES: No significant abnormality. No enlarged lymph nodes. CT/Low Dose CT Lung Screening IMPRESSION: ACR Lung CT Screening Reporting And Data System (Lung-RADS) score: 2 - Benign Appearance or Behavior. Recommend continued annual screening with a low-dose CT (LDCT) in 12 months. Electronically Signed: Cali Hoffman DO at 22:20 EDT ,
== END | disposition home or self-care (01) ==
LOC: CT 13:44
PROVIDERS: PCP Family Medicine; Referring Provider Nurse Practitioner Acute Care; Visit Provider Nurse Practitioner Acute Care
DX: F17.210 Nicotine dependence, cigarettes, uncomplicated (principal)
CPT/HCPCS: 71271

== ENCOUNTER 2024-01-18 12:30 | Outpatient (CLI) | payer MEDICARE, OTHER, SELFPAY ==
[2024-01-18 12:43] VITALS: BP 133/77; PULSE 106; RESP 16; TEMP 36.2; O2SAT 96
[2024-01-18] MEDS: Mepolizumab 100 MG VIAL SC (13:17)
== END 2024-01-18 23:59 | disposition home or self-care (01) ==
LOC: MEDOUTP 12:30
PROVIDERS: PCP Family Medicine; Referring Provider Nurse Practitioner Acute Care; Visit Provider Nurse Practitioner Acute Care
DX: J45.50 Severe persistent asthma, uncomplicated (principal)
CPT/HCPCS: 96372; J2182

== ENCOUNTER 2024-03-21 11:59 | Outpatient (CLI) | payer MEDICARE, OTHER, SELFPAY ==
[2024-03-21 12:13] VITALS: BP 136/80; PULSE 89; RESP 16; TEMP 36.2; O2SAT 98
[2024-03-21] MEDS: Mepolizumab 100 MG VIAL SC (12:30)
== END 2024-03-21 23:59 | disposition home or self-care (01) ==
LOC: MEDOUTP 11:59
PROVIDERS: PCP Family Medicine; Referring Provider Nurse Practitioner Acute Care; Visit Provider Nurse Practitioner Acute Care
DX: J45.50 Severe persistent asthma, uncomplicated (principal)
CPT/HCPCS: 96372; J2182

== ENCOUNTER 2024-04-25 12:19 | Outpatient (CLI) | payer MEDICARE, OTHER, SELFPAY ==
[2024-04-25 12:27] VITALS: BP 141/75; PULSE 93; RESP 18; TEMP 36.6; O2SAT 98; BMI 35.4
[2024-04-25] MEDS: Mepolizumab 100 MG VIAL SC (13:01)
== END 2024-04-25 23:59 | disposition home or self-care (01) ==
LOC: MEDOUTP 12:19
PROVIDERS: PCP Family Medicine; Referring Provider Nurse Practitioner Acute Care; Visit Provider Nurse Practitioner Acute Care
DX: J45.50 Severe persistent asthma, uncomplicated (principal)
CPT/HCPCS: 96372; J2182

== ENCOUNTER 2024-07-04 11:29 | Outpatient (CLI) | payer MEDICARE, OTHER, SELFPAY ==
[2024-07-04 11:36] VITALS: BP 110/68; PULSE 77; RESP 16; TEMP 35.8; O2SAT 94; BMI 36.1
[2024-07-04] MEDS: Mepolizumab 100 MG VIAL SC (12:07)
== END 2024-07-04 23:59 | disposition home or self-care (01) ==
LOC: MEDOUTP 11:29
PROVIDERS: PCP Family Medicine; Referring Provider Nurse Practitioner Acute Care; Visit Provider Nurse Practitioner Acute Care
DX: J45.50 Severe persistent asthma, uncomplicated (principal)
CPT/HCPCS: 96372; J2182

== ENCOUNTER 2024-09-10 14:23 | Outpatient (CLI) | payer MEDICARE, OTHER, SELFPAY ==
[2024-09-10 14:39] VITALS: BP 154/61; PULSE 66; RESP 16; TEMP 36; O2SAT 95; BMI 36.6
[2024-09-10] MEDS: Mepolizumab 100 MG VIAL SC (14:57)
== END 2024-09-10 23:59 | disposition home or self-care (01) ==
LOC: MEDOUTP 14:24
PROVIDERS: PCP Family Medicine; Referring Provider Nurse Practitioner Acute Care; Visit Provider Nurse Practitioner Acute Care
DX: J45.50 Severe persistent asthma, uncomplicated (principal)
CPT/HCPCS: 96372; J2182

== ENCOUNTER 2024-10-17 13:14 | Outpatient (CLI) | payer MEDICARE, OTHER, SELFPAY ==
[2024-10-17 13:24] VITALS: BP 136/80; PULSE 71; RESP 16; TEMP 35.7; O2SAT 91; BMI 37.2
--- OUTSIDE RECORDS SUMMARY | 2024-10-17 19:54 | XMS RPT_ITS | CCD ---
Author Organization [facility] Care Team Providers Care Defensive Secondary Coach Name Role Phone Yensho ARMATURE STRAIGHTENER, Brisa A Unavailable Unavailab le Marie ARMATURE STRAIGHTENER, Kristen Anabel Unavailable Unavaila ble Yensho ARMATURE STRAIGHTENER, Brisa A Unavailable Unavailab le Tod ARMATURE STRAIGHTENER, Leilani N Unavailable Unavailab le Tod ARMATURE STRAIGHTENER, Leilani N Unavailable Unavailab le Cogar ARMATURE STRAIGHTENER, Mariel N Unavailable [phone] Cogar ARMATURE STRAIGHTENER, Mariel N Unavailable [phone] Dr. Kamilah Patel Primary Care Provider [phone] Dr. Kamilah Patel Referring Provider [phone] SWETHA Caballero Attending Provider SWETHA Vargas Attending Provider Neal BRAKE RIDER, BRAKE RIDER-C Cathie Attending Provider Dr. Kamilah Patel Primary Care Provider Dr. Kamilah Patel Referring Provider Neal BRAKE RIDER, BRAKE RIDER-C Cathie Referring Provider Dr. Kamilah Patel Primary Care Provider [phone] Dr. Kamilah Patel Primary Care Provider Dr. Kamilah Patel Referring Provider [phone] SWETHA Caballero Attending Provider Dr. Kamilah Patel Primary Care Provider Dr. Kamilah Patel Referring Provider SWETHA Caballero Attending Provider Dr. Anthony Jalloh Attending Provider Dr. Kamilah Patel Primary Care Provider [phone] Kamilah Patel Referring Provider SWETHA Caballero Attending Provider Dr. Kamilah Patel Primary Care Provider [phone] Kamilah Patel Referring Provider Dr. Kamilah Patel Primary Care Provider [phone] Kamilah Patel Referring Provider Neal BRAKE RIDER, BRAKE RIDER-C Cathie Attending Provider [phone] Dr. Kamilah Patel Primary Care Provider [phone] Kamilah Patel Referring Provider Dr. Anthony Jalloh Attending Provider Neal BRAKE RIDER, BRAKE RIDER-C Cathie Attending Provider [phone] SWETHA Caballero Attending Provider Dr. Kamilah Patel Primary Care Provider [phone] Kamilah Patel Referring Provider Dr. Kamilah Patel Primary Care Provider [phone] Kamilah Patel Referring Provider Neal BRAKE RIDER, BRAKE RIDER-C Cathie Attending Provider SWETHA Caballero Attending Provider Dr. Naomi Whyte DO Primary Care Provider [phone] Naomi Whyte DO Referring Provider Neal BRAKE RIDER-CCathie Attending Provider Neal BRAKE RIDER-CCathie Referring Provider Dr. Naomi Whyte DO Primary Care Provider De Jesus BRAKE RIDER-C, Cathie Attending Provider De Jeuss BRAKE RIDER-C, Cathie Referring Provider Dr. Naomi Whyte DO Referring Provider [phone] De Jesus BRAKE RIDER, Cathie Referring Unavailable Malys, Naomi Primary Care Unavailable De Jesus BRAKE RIDER, Cathie Attending Unavailable De Jesus BRAKE RIDER, Cathie Attending Unavailable Malys, Naomi Referring Unavailable Malys, Naomi Primary Care Unavailable Malys, Naomi Referring Unavailable Malys, Naomi Primary Care Unavailable Angel Patel Attending Unavailable De Jesus BRAKE RIDER, Cathie Attending Unavailable Malys, Naomi Referring Unavailable Malys, Naomi Primary Care Unavailable De Jesus BRAKE RIDER, Cathie Attending Unavailable De Jesus BRAKE RIDER, Cathie Referring Unavailable Malys, Naomi Primary Care Unavailable De Jesus BRAKE RIDER, Cathie Attending Unavailable Malys, Naomi Primary Care Unavailable De Jesus BRAKE RIDER, Cathie Referring Unavailable De Jesus BRAKE RIDER, Cathie Attending Unavailable Malys, Naomi Primary Care Unavailable De Jesus BRAKE RIDER, Cathie Referring Unavailable De Jesus BRAKE RIDER, Cathie Attending Unavailable De Jesus BRAKE RIDER, Cathie Referring Unavailable [facility] Primary Care Unavailable De Jesus BRAKE RIDER, Cathie Attending Unavailable De Jesus BRAKE RIDER, Cathie Referring Unavailable Malys, Naomi Primary Care Unavailable De Jesus BRAKE RIDER, Cathie Attending Unavailable De Jesus BRAKE RIDER, Cathie Referring Unavailable Malys, Naomi Primary Care Unavailable De Jesus BRAKE RIDER, Cathie Attending Unavailable De Jesus BRAKE RIDER, Cathie Referring Unavailable Malys, Naomi Primary Care Unavailable De Jesus BRAKE RIDER, Cathie Attending Unavailable Malys, Naomi Primary Care Unavailable De Jesus BRAKE RIDER, Cathie Referring Unavailable De Jesus BRAKE RIDER, Cathie Attending Unavailable Malys, Naomi Primary Care Unavailable De Jesus BRAKE RIDER, Cathie Referring Unavailable De Jesus BRAKE RIDER, Cathie Referring Unavailable Malys, Naomi Primary Care Unavailable De Jesus BRAKE RIDER, Cathie Attending Unavailable De Jesus BRAKE RIDER, Cathie Attending Unavailable De Jesus BRAKE RIDER, Cathie Referring Unavailable Malys, Naomi Primary Care Unavailable Malys, Naomi Primary Care Unavailable De Jesus BRAKE RIDER, Cathie Referring Unavailable De Jesus BRAKE RIDER, Cathie Attending Unavailable De Jesus BRAKE RIDER, Cathie Referring Unavailable Malys, Naomi Primary Care Unavailable De Jesus BRAKE RIDER, Cathie Attending Unavailable Allergies Allergy Classification Reported Allergen(s) Allergy Type Date of Onset Reaction(s) Facility (14 sources) codeine drug allergy 6 vomitting and itching [facility] Work Phone: (14 sources) morphine drug allergy 6 swellling, turns red [facility] Work Phone: (20 sources) Codeine Drug Allergy 2 Itching [facility] (20 sources) Doxycycline Drug Allergy 2 severe headaches and muscle spasms to the chest [facility] (20 sources) Morphine Drug Allergy 2 Itching [facility] (1 source) Codeine Drug Allergy 5 [facility] Repository (1 source) Doxycycline Drug Allergy 5 [facility] Repository (1 source) Morphine Drug Allergy 5 [facility] Repository Medications Current Medications Medication Drug Class(es) Dates Sig (Normalized) Sig (Original) azithromycin 250 mg oral tablet (20 sources) Macrolide Antimicrobial Start: 08-02-2023 End: 08-12-2024 take 1 tablet by mouth once Azithromycin 250 mg tablet Active 250 mg PO every Sunday, Sunday, and Sunday 2:30pm Start: 04-06-2021 End: 07-07-2021 Azithromycin 250 mg tablet Discontinued 250 mg PO daily April 06, 2021 1:00am July 07, 2021 10:04am 2 tablets today, then 1 tablet daily on days 2 through 5 Start: 05-12-2018 End: 07-09-2018 take 2-5 tablets by mouth once daily Azithromycin (Zithromax Z-Artem) 250 mg tablet Discontinued 0 PO .COMPLEX July 03, 2018 12:00am July 09, 2018 11:07am take 500 mg today (day 1), then 250 mg for 4 days (days 2-5) PO Start: 09-07-2017 End: 02-04-2018 take 1 tablet by mouth once daily Azithromycin 250 mg tablet Discontinued 250 mg PO daily January 15, 2018 12:00am February 04, 2018 12:45pm clopidogrel 75 mg oral tablet (20 sources) [id number] Platelet Inhibitor Start: 10-23-2015 End: 03-12-2017 take 1 tablet by mouth once daily Clopidogrel 75 MG tablet Active 75 mg PO DAILY October 23, 2015 12:00am Disability Placard (20 sources) Start: 01-04-2021 Disability Jason card Active 0 .Route .MEDSUPPLY January 04, 2021 10:30am expires 12/10/2025 Start: 01-04-2021 Disability Jason card Active 0 .Route .MEDSUPPLY 1 January 04, 2021 11:30am expires 12/10/2025 Start: 12-10-2020 End: 01-04-2021 Disability Placard Discontin ued 0 .Route .MEDSUPPLY 1 December 10, 2020 11:02am January 04, 2021 10:33am expires 12/10/2025 Start: 12-10-2020 End: 01-04-2021 Disability Placard Discontin ued 0 .Route .MEDSUPPLY 1 December 10, 2020 12:02pm January 04, 2021 11:33am expires 12/10/2025 Start: 11-23-2020 End: 12-10-2020 Disability Placard Discontin ued 0 .Route .MEDSUPPLY 1 November 23, 2020 1:21pm December 10, 2020 12:03pm expires 11/23/2025 Start: 11-23-2020 End: 12-10-2020 Disability Placard Discontin ued 0 .Route .MEDSUPPLY 1 November 23, 2020 12:00am November 23, 2025 12:00am December 10, 2020 12:03pm expires 11/23/2025 Start: 11-23-2020 End: 12-10-2020 Disability Placard Discontin ued 0 .Route .MEDSUPPLY 1 November 22, 2020 11:00pm December 10, 2020 11:03am expires 11/23/2025 Start: 11-23-2020 End: 12-10-2020 Disability Placard Discontin ued 0 .Route .MEDSUPPLY 1 November 23, 2020 12:00am December 10, 2020 12:03pm expires 11/23/2025 168 hr estradiol 0.98337 mg/hr transdermal system (7 sources) Estrogen Start: 04-20-2023 Estradiol 0.02 5 mg/24 hr patch weekly Active 1 NMA TD EVERY WEEK April 20, 2023 1:00am Start: 04-20-2023 apply 1 dose transde rmal route every week Estradiol Active 1 PATCH TD EVERY WEEK April 20, 2023 1:00am Hfzckyzhpcl-Hsogakpka-Yldmog er (20 sources) Anticholinergic, Corticosteroid, beta2-Adrenergic Agonist Start: 04-20-2023 Mvnjqsowgzu-Ugxeftold-Kaqwpm er (Trelegy Ellipta) 100-62.5-25 mcg blister with device Active 1 NMA INHALATION DAILY April 20, 2023 1:00am Start: 04-20-2023 Fluticasone-Um eclidin-Vilanter (Trelegy Ellipta) 100-62.5-25 mcg blister with device Active 1 INH INHALATION DAILY April 20, 2023 1:00am Start: 04-20-2023 Fluticasone-Um eclidin-Vilanter (Trelegy Ellipta) 100-62.5-25 mcg blister with device Active 1 INH INHALATION DAILY April 20, 2023 12:00am Start: 08-01-2022 End: 11-02-2022 Rlpgjdqmsro-Cbtisurrm-Kyykob er (Trelegy Ellipta) 100-62.5-25 mcg blister with device Discontinued 1 NMA INHALATION daily 60 August 01, 2022 8:27am November 02, 2022 3:14pm administer at approximately the same time(s) each day Start: 08-01-2022 End: 11-02-2022 Eulsxggdibh-Pznachbtp-Fozyms er (Trelegy Ellipta) 100-62.5-25 mcg blister with device Discontinued 1 INH INHALATION daily August 01, 2022 7:27am November 02, 2022 2:14pm administer at approximately the same time(s) each day Start: 08-01-2022 End: 11-02-2022 Ukayqyuwjei-Xuvmdevzj-Ooblsf er (Trelegy Ellipta) 100-62.5-25 mcg blister with device Discontinued 1 INH INHALATION daily August 01, 2022 8:27am November 02, 2022 3:14pm administer at approximately the same time(s) each day Start: 08-01-2022 Fluticasone-Um eclidin-Vilanter (Trelegy Ellipta) 100-62.5-25 mcg blister with device Active 1 INH INHALATION daily 60 August 01, 2022 8:27am administer at approximately the same time(s) each day Start: 01-30-2022 End: 08-01-2022 Arvnypdhxjf-Zabcploum-Doqsmk er (Trelegy Ellipta) 100-62.5-25 mcg blister with device Discontinued 1 NMA INHALATION daily January 30, 2022 8:32am August 01, 2022 8:27am administer at approximately the same time(s) each day Start: 01-30-2022 End: 08-01-2022 Ixquajimmup-Bfwxknpvw-Lxxhkd er (Trelegy Ellipta) 100-62.5-25 mcg blister with device Discontinued 1 INH INHALATION daily January 30, 2022 7:32am August 01, 2022 7:27am administer at approximately the same time(s) each day Start: 01-30-2022 End: 08-01-2022 Wqbrryolzag-Bdfgbpizx-Zwsfne er (Trelegy Ellipta) 100-62.5-25 mcg blister with device Discontinued 1 INH INHALATION daily January 30, 2022 8:32am August 01, 2022 8:27am administer at approximately the same time(s) each day Start: 01-30-2022 Fluticasone-Um eclidin-Vilanter (Trelegy Ellipta) 100-62.5-25 mcg blister with device Active 1 INH INHALATION daily January 30, 2022 8:32am administer at approximately the same time(s) each day Start: 01-30-2022 Fluticasone-Um eclidin-Vilanter (Trelegy Ellipta) 100-62.5-25 mcg blister with device Active 1 INH INHALATION daily January 30, 2022 7:32am administer at approximately the same time(s) each day Start: 07-07-2021 End: 01-30-2022 Nnfkrdjkbez-Mtessmeom-Thwsbj er (Trelegy Ellipta) 100-62.5-25 mcg blister with device Discontinued 1 NMA INHALATION daily July 07, 2021 10:35am January 30, 2022 8:32am administer at approximately the same time(s) each day Start: 07-07-2021 End: 01-30-2022 Dtgvcdyuftz-Ouguwtmyw-Ttbwpn er (Trelegy Ellipta) 100-62.5-25 mcg blister with device Discontinued 1 INH INHALATION daily 60 July 07, 2021 10:35am January 30, 2022 8:32am administer at approximately the same time(s) each day Start: 07-07-2021 End: 01-30-2022 Tmqtklsbfwc-Uvtamcgxh-Wmtryf er (Trelegy Ellipta) 100-62.5-25 mcg blister with device Discontinued 1 INH INHALATION daily 60 July 07, 2021 9:35am January 30, 2022 7:32am administer at approximately the same time(s) each day Start: 07-07-2021 Fluticasone-Um eclidin-Vilanter (Trelegy Ellipta) 100-62.5-25 mcg blister with device Active 1 INH INHALATION daily 60 July 07, 2021 10:35am administer at approximately the same time(s) each day Start: 01-04-2021 End: 07-07-2021 Ermcbcndfpt-Hgndosyoh-Fajdvb er (Trelegy Ellipta) 100-62.5-25 mcg blister with device Discontinued 1 NMA INHALATION daily January 04, 2021 11:31am July 07, 2021 10:35am administer at approximately the same time(s) each day Start: 01-04-2021 End: 07-07-2021 Milqhxzsudu-Tfiokzrxj-Iebnoe er (Trelegy Ellipta) 100-62.5-25 mcg blister with device Discontinued 1 INH INHALATION daily January 04, 2021 10:31am July 07, 2021 9:35am administer at approximately the same time(s) each day Start: 01-04-2021 End: 07-07-2021 Sqkdymuxjnw-Ourxjwwkf-Azktwi er (Trelegy Ellipta) 100-62.5-25 mcg blister with device Discontinued 1 INH INHALATION daily January 04, 2021 11:31am July 07, 2021 10:35am administer at approximately the same time(s) each day Start: 10-15-2020 End: 01-04-2021 Aithvzkemxn-Amtmekjme-Txnhkr er (Trelegy Ellipta) 100-62.5-25 mcg blister with device Discontinued 1 NMA INHALATION daily 60 October 15, 2020 2:54pm January 04, 2021 11:33am administer at approximately the same time(s) each day Start: 10-15-2020 End: 01-04-2021 Jccedmwezti-Pyrbbopqf-Lmowub er (Trelegy Ellipta) 100-62.5-25 mcg blister with device Discontinued 1 INH INHALATION daily 60 October 15, 2020 1:54pm January 04, 2021 10:33am administer at approximately the same time(s) each day Start: 10-15-2020 End: 01-04-2021 Kkrzmqxblzy-Rakrvvqkm-Hnbkza er (Trelegy Ellipta) 100-62.5-25 mcg blister with device Discontinued 1 INH INHALATION daily 60 October 15, 2020 2:54pm January 04, 2021 11:33am administer at approximately the same time(s) each day Start: 10-15-2020 End: 10-15-2020 Eubmebrtper-Dvukkhlvl-Bwevxn er (Trelegy Ellipta) 100-62.5-25 mcg blister with device Discontinued 1 NMA INHALATION daily 60 October 15, 2020 2:27pm October 15, 2020 2:54pm administer at approximately the same time(s) each day Start: 10-15-2020 End: 10-15-2020 Vvdyrswnecx-Hbzfkfmvq-Rjpckx er (Trelegy Ellipta) 100-62.5-25 mcg blister with device Discontinued 1 INH INHALATION daily October 15, 2020 1:27pm October 15, 2020 1:54pm administer at approximately the same time(s) each day Start: 10-15-2020 End: 10-15-2020 Ojvqdtcloan-Ssihhbqef-Skeptg er (Trelegy Ellipta) 100-62.5-25 mcg blister with device Discontinued 1 INH INHALATION daily 60 October 15, 2020 2:27pm October 15, 2020 2:54pm administer at approximately the same time(s) each day Start: 02-16-2020 End: 05-18-2020 Pcxpqsuixrz-Ifswytics-Xvhdxp er (Trelegy Ellipta) 100-62.5-25 mcg blister with device Discontinued 1 INH INHALATION daily February 16, 2020 4:13pm May 18, 2020 11:44am administer at approximately the same time(s) each day Start: 02-16-2020 End: 05-18-2020 Lhmenmgukuu-Pfrjwuakx-Hbpvtu er (Trelegy Ellipta) 100-62.5-25 mcg blister with device Discontinued 1 NMA INHALATION daily February 16, 2020 1:00am May 18, 2020 11:44am administer at approximately the same time(s) each day Start: 02-16-2020 End: 05-18-2020 Qvujfktlvjj-Sggmwwvac-Zoioza er (Trelegy Ellipta) 100-62.5-25 mcg blister with device Discontinued 1 INH INHALATION daily February 16, 2020 12:00am May 18, 2020 10:44am administer at approximately the same time(s) each day Start: 02-16-2020 End: 05-18-2020 Npjtxvlicsb-Xdtrtiala-Elfuvc er (Trelegy Ellipta) 100-62.5-25 mcg blister with device Discontinued 1 INH INHALATION daily February 16, 2020 1:00am May 18, 2020 11:44am administer at approximately the same time(s) each day Start: 10-31-2019 End: 01-23-2020 Jabhzisjyxu-Bqhfucgaa-Qwlzpd er (Trelegy Ellipta) 100-62.5-25 mcg blister with device Discontinued 1 NMA INHALATION DAILY October 31, 2019 2:30pm January 23, 2020 2:32pm Start: 10-31-2019 End: 01-23-2020 Kutcouqckmn-Nvcahjlol-Otxjzy er (Trelegy Ellipta) 100-62.5-25 mcg blister with device Discontinued 1 INH INHALATION DAILY October 31, 2019 1:30pm January 23, 2020 1:32pm Start: 10-31-2019 End: 01-23-2020 Iwybwlvnxmg-Kzkmhkdud-Ykxtdl er (Trelegy Ellipta) 100-62.5-25 mcg blister with device Discontinued 1 INH INHALATION DAILY October 31, 2019 2:30pm January 23, 2020 2:32pm Start: 10-03-2018 End: 10-31-2019 Oewtnongmyr-Wnjrirfjs-Qqlyqd er (Trelegy Ellipta) 100-62.5-25 mcg blister with device Discontinued 1 NMA INHALATION DAILY 1 October 03, 2018 12:00am October 31, 2019 2:31pm Start: 10-03-2018 End: 10-31-2019 Shxmknjwazs-Nehbkzxkp-Sqmeeb er (Trelegy Ellipta) 100-62.5-25 mcg blister with device Discontinued 1 INH INHALATION DAILY 1 October 03, 2018 12:00am October 31, 2019 2:31pm Start: 09-25-2018 End: 10-03-2018 Vczacydvbxq-Gypqkwkes-Sqnhta er (Trelegy Ellipta) 100-62.5-25 mcg blister with device Discontinued 1 NMA INHALATION DAILY 60 September 25, 2018 12:40pm October 03, 2018 1:40pm Start: 09-25-2018 End: 10-03-2018 Dbxvkenpjvz-Dzslhwewb-Izzane er (Trelegy Ellipta) 100-62.5-25 mcg blister with device Discontinued 1 INH INHALATION DAILY 60 September 25, 2018 11:40am October 03, 2018 12:40pm Start: 09-25-2018 End: 10-03-2018 Xyipcgiganb-Vfehtzjdd-Czkfhe er (Trelegy Ellipta) 100-62.5-25 mcg blister with device Discontinued 1 INH INHALATION DAILY 60 September 25, 2018 12:40pm October 03, 2018 1:40pm Start: 08-06-2018 End: 09-25-2018 Sflwvollrlk-Eerxprhoi-Mmhvqk er (Trelegy Ellipta) 100-62.5-25 mcg blister with device Discontinued 1 NMA INHALATION DAILY August 06, 2018 12:00am September 25, 2018 12:41pm Start: 08-06-2018 End: 09-25-2018 Atgplytixrf-Cfufzljwa-Mkqeyc er (Trelegy Ellipta) 100-62.5-25 mcg blister with device Discontinued 1 INH INHALATION DAILY August 06, 2018 12:00am September 25, 2018 12:41pm fluvoxaMINE maleate 100 mg oral tablet (20 sources) Serotonin Reuptake Inhibitor Start: 11-02-2022 End: 04-20-2023 take 1 tablet by mouth once daily Fluvoxamine 100 mg tablet Active 100 mg PO DAILY April 20, 2023 1:33pm Start: 11-02-2022 Fluvoxamine Ac tive MG November 02, 2022 12:00am Start: 12-02-2015 End: 12-30-2015 take 1 tablet by mouth once daily FLUVOXAMINE MALEATE 100 MG TABS One tablet by mouth daily FLUVOXAMINE MALEATE [id number] Brisa Ball LPN latanoprost 0.05 mg/ml ophthalmic solution (2 sources) Prostaglandin Analog Start: 09-10-2024 Latanoprost 0.005 % drops Active 1 NMA OPHTHALMIC AT BEDTIME September 10, 2024 12:00am LORazepam 1 mg oral tablet (5 sources) Benzodiazepine Start: 09-10-2024 take 1 tablet by mouth twice daily as needed for anxiety Lorazepam 1 mg tablet Active 1 mg PO TWICE A DAY as needed for anxiety September 10, 2024 12:00am Start: 01-28-2024 take 1 tablet by bing th twice daily as needed for anxiety Lorazepam 0.5 mg tablet Active 0.5 mg PO TWICE A DAY as needed for anxiety January 28, 2024 12:00am 1 ml mepolizumab 100 mg/ml auto-injector (20 sources) Interleukin-5 Antagonist Start: 01-28-2024 Mepolizumab (Nucala) 100 mg/mL auto-injector Active 100 mg SC every 4 weeks January 28, 2024 12:00am Start: 07-07-2021 End: 07-07-2021 inject 100 mg by subcutaneous injection once Nucala (mepolizumab) 100 mg subcutaneous solution Discontinued 100 MG SC ONCE July 07, 2021 9:57am July 07, 2021 10:47am Start: 04-24-2019 End: 01-19-2020 Mepolizumab (Nucala) 100 mg/ mL auto-injector Discontinued 100 mg SC every 4 weeks April 24, 2019 1:00am January 19, 2020 9:02am Start: 04-21-2019 End: 04-24-2019 Mepolizumab (Nucala) 100 mg/ mL auto-injector Discontinued 300 mg SC every 4 weeks April 21, 2019 1:00am April 24, 2019 3:40pm administer as three 100 mg injections at separate sites Start: 03-19-2019 End: 03-19-2019 inject 100 mg by subcutaneous injection once Nucala (mepolizumab) 100 mg subcutaneous solution Discontinued 100 MG SC ONCE March 19, 2019 9:10am March 19, 2019 9:54am Start: 12-31-2018 End: 12-31-2018 inject 100 mg by subcutaneous injection once Nucala (mepolizumab) 100 mg subcutaneous solution Discontinued 100 MG SC ONCE December 31, 2018 1:45pm December 31, 2018 12:49pm Start: 11-29-2018 End: 11-29-2018 inject 100 mg by subcutaneous injection once Nucala (mepolizumab) 100 mg subcutaneous solution Discontinued 100 MG SC ONCE November 29, 2018 10:15am November 29, 2018 9:13am Start: 09-25-2018 End: 04-21-2019 Mepolizumab (Nucala) 100 mg recon soln Discontinued 100 mg SC every 4 weeks March 19, 2019 1:00am April 21, 2019 12:42pm spacer (20 sources) Start: 07-29-2019 spacer Active 0 .Route .MEDSUPPLY July 29, 2019 2:34pm As directed Start: 07-29-2019 spacer Active 0 .Route .MEDSUPPLY July 28, 2019 11:00pm As directed Start: 07-29-2019 spacer Active 0 .Route .MEDSUPPLY July 29, 2019 12:00am As directed Completed/Discontinued Medications Medication Drug Class(es) Dates Sig (Normalized) Sig (Original) acapella (20 sources) Start: 01-18-2018 End: 02-25-2018 acapella Discontinued January 18, 2018 1:38pm February 25, 2018 12:52pm As directed Start: 01-18-2018 End: 02-25-2018 acapella Discontinued 2017 11:00pm February 25, 2018 11:52am As directed Start: 01-18-2018 End: 02-25-2018 acapella Discontinued 2017 12:00am February 25, 2018 12:52pm As directed OULIUCL-CLDHTR-RPCXQ PERTUSSIS (2 sources) Inactivated Corynebacterium Diphtheriae Vaccine, Inactivated Clostridium Tetani Vaccine Start: 11-22-2015 End: 01-03-2016 ADACEL 5-2-15.5 LF-MCG/0.5 SUSP [place] 1 dose QMDUPIX-SEOHVD-WGLFE PERTUSSIS [id number] Kristen Leeach ARMATURE STRAIGHTENER Start: 11-22-2015 ADACEL 5-2-15. 5 LF-MCG/0.5 SUSP [place] 1 dose DJLCSCK-VSVYRS-TFLKU PERTUSSIS [id number] Brisa Ball ARMATURE STRAIGHTENER [id number] actuat albuterol 0.09 mg/actuat metered dose inhaler (20 sources) beta2-Adrenergic Agonist Start: 07-07-2021 take 1 puff(s) by inhalation every four hours Albuterol Sulfate Active 2 PUFF INHALATION Q4H 8.5 July 07, 2021 10:35am administer with spacer Start: 01-04-2021 End: 09-10-2024 Albuterol Sulfate 90 mcg/act uation HFA aerosol inhaler Discontinued 2 NMA INHALATION Q4H as needed for shortness of breath or wheezing 8.5 August 01, 2022 8:27am September 10, 2024 2:15pm administer with spacer Start: 01-04-2021 End: 08-01-2022 take 1 puff(s) by inhalation every four hours Albuterol Sulfate Discontinued 2 PUFF INHALATION Q4H 8.5 July 07, 2021 10:35am August 01, 2022 8:27am administer with spacer Start: 10-03-2018 End: 11-29-2018 Albuterol Sulfate 90 mcg/act uation HFA aerosol inhaler Discontinued 2 NMA INHALATION Q4H as needed for shortness of breath or wheezing 1 October 03, 2018 12:00am November 29, 2018 9:11am administer with spacer Start: 10-03-2018 End: 11-29-2018 take 1 puff(s) by inhalation every four hours Albuterol Sulfate Discontinued 2 PUFF INHALATION Q4H 1 October 03 2019 12:00am November 29, 2018 9:11am administer with spacer Start: 10-24-2017 End: 07-07-2021 Albuterol Sulfate 90 mcg/act uation HFA aerosol inhaler Discontinued 1 - 2 NMA INHALATION EVERY 4 HOURS NEEDED as needed for COPD J44.9 October 24, 2017 3:47pm July 07, 2021 10:04am Start: 10-24-2017 End: 07-07-2021 take 1 puff(s) by inhalation every four hours as needed Albuterol Sulfate Discontinued 1 - 2 PUFF INHALATION EVERY 4 HOURS NEEDED October 24, 2017 3:47pm July 07, 2021 10:04am Start: 12-02-2015 End: 10-09-2016 take 108 ug by inhalation every four hours as needed PROAIR HFA 108 (90 Base) MCG/ACT AERS INH every 4 hours PRN ALBUTEROL SULFATE [id number] Anthony Jalloh DO Start: 12-02-2015 take 108 ug by inhal ation every four hours as needed PROAIR HFA 108 (90 Base) MCG/ACT AERS INH every 4 hours PRN ALBUTEROL SULFATE [id number] Anthony Jalloh DO Start: 10-23-2015 End: 08-01-2022 take 2.5 mg by inhalation every four hours as needed for wheezing Albuterol Sulfate 2.5 mg /3 mL (0.083 %) solution for nebulization Discontinued 2.5 mg INHALATION EVERY 4 HOURS NEEDED October 24, 2017 4:24pm July 07, 2021 10:14am Use q4 hours and PRN for wheezing Start: 10-23-2015 End: 10-24-2017 Albuterol Sulfate 1 INHALER inhaler Discontinued 1 - 2 NMA INHALATION EVERY 4 HOURS NEEDED as needed for Wheezing October 23, 2015 12:00am October 24, 2017 3:48pm Start: 10-23-2015 End: 10-24-2017 take 1 puff(s) by inhalation every four hours as needed Albuterol Sulfate Discontinued 1 - 2 PUFF INHALATION EVERY 4 HOURS NEEDED October 23, 2015 12:00am October 24, 2017 3:48pm albuterol 0.833 mg/ml / ipratropium bromide 0.167 mg/ml inhalation solution (20 sources) Anticholinergic, beta2-Adrenergic Agonist Start: 07-02-2020 End: 10-15-2020 take 1 mL by inhalation every four hours as needed for wheezing Ipratropium-Albuterol 0.5 mg-3 mg(2.5 mg base)/3 mL solution for nebulization Discontinued 3 mL INHALATION EVERY 4 HOURS NEEDED as needed for SOB &/OR WHEEZING 180 July 02, 2020 12:00am October 15, 2020 2:27pm Start: 07-02-2020 End: 10-15-2020 take 1 mL by inhalation every four hours as needed Ipratropium-Albuterol Discontinued 3 ML INHALATION EVERY 4 HOURS NEEDED 180 July 02, 2020 12:00am October 15, 2020 2:27pm Start: 07-27-2018 End: 08-06-2018 take 1 mL by inhalation every eight hours Ipratropium-Albuterol 0.5 mg-3 mg(2.5 mg base)/3 mL solution for nebulization Discontinued 3 mL INHALATION Q8H July 27, 2018 12:00am August 06, 2018 11:49am Start: 07-27-2018 End: 08-06-2018 take 1 mL by inhalation every eight hours Ipratropium-Albuterol Discontinued 3 ML INHALATION Q8H July 27, 2018 12:00am August 06, 2018 11:49am Start: 01-03-2016 End: 10-09-2016 IPRATROPIUM-ALBUTEROL 0.5-2. 5 (3) MG/3ML SOLN INH 1 ampule q4h as needed IPRATROPIUM-ALBUTEROL [id number] Leilani Baron [employer] amoxicillin 875 mg / clavulanate 125 mg oral tablet (20 sources) Penicillin-class Antibacterial Start: 04-18-2021 End: 04-28-2021 Amoxicillin-Pot Clavulanate (Augmentin) 875-125 mg tablet Discontinued 1 {tbl} PO Q12H 20 April 18, 2021 1:00am April 27, 2021 1:00am April 28, 2021 1:01am Antidepressant (20 sources) Start: 10-23-2015 End: 03-12-2017 Antidepressant Discontinued October 23, 2015 8:27pm March 12, 2017 2:31pm Start: 10-23-2015 End: 03-12-2017 Antidepressant Discontinued October 22, 2015 11:00pm March 12, 2017 1:31pm Start: 10-23-2015 End: 03-12-2017 Antidepressant Discontinued October 23, 2015 12:00am March 12, 2017 2:31pm aspirin 81 mg delayed release oral tablet (17 sources) Platelet Aggregation Inhibitor, Nonsteroidal Anti-inflammatory Drug Start: 12-30-2015 End: 10-09-2016 take 1 tablet by mouth once daily ASPIR-81 TBEC One tablet by mouth daily ASPIRIN TBEC [id number] Khai Birmingham MD ASPIRIN TBEC (1 source) Start: 12-30-2015 take 1 tablet by mouth once daily ASPIR-81 TBEC One tablet by mouth daily ASPIRIN TBEC [id number] Khai Birmingham MD atorvastatin 80 mg oral tablet (20 sources) HMG-CoA Reductase Inhibitor Start: 02-25-2018 End: 08-01-2022 take 1 tablet by mouth at bedtime Atorvastatin 80 mg tablet Discontinued 80 mg PO AT BEDTIME 90 90 February 25, 2018 1:00am August 01, 2022 8:11am Start: 11-22-2015 End: 10-09-2016 take 1 tablet by mouth once daily at bedtime LIPITOR 80 MG TABS One tablet by mouth daily at bedtime ATORVASTATIN CALCIUM [id number] Brisa Ball LPN budesonide 0.5 mg/ml inhalation suspension (20 sources) Corticosteroid Start: 07-02-2020 End: 10-15-2020 take 1 mg by inhalation twice daily Budesonide 1 mg/2 mL suspension for nebulization Discontinued 1 mg INHALATION TWICE A DAY 60 July 02, 2020 12:00am October 15, 2020 2:26pm Budesonide-Formo terol (20 sources) Corticosteroid, beta2-Adrenergic Agonist Start: 05-18-2020 End: 07-02-2020 take 1 puff(s) by inhalation twice daily Budesonide-Formot jagdeep (Symbicort) 160-4.5 mcg/actuation HFA aerosol inhaler Discontinued 2 PUFF INHALATION TWICE A DAY 10.2 May 18, 2020 12:03pm July 02, 2020 10:58am Start: 05-18-2020 End: 07-02-2020 Budesonide-Formoterol (Symbi teddy) 160-4.5 mcg/actuation HFA aerosol inhaler Discontinued 2 NMA INHALATION TWICE A DAY 10.2 May 18, 2020 1:00am July 02, 2020 10:58am Start: 05-18-2020 End: 07-02-2020 take 1 puff(s) by inhalation twice daily Budesonide-Formoterol (Symbicort) 160-4.5 mcg/actuation HFA aerosol inhaler Discontinued 2 PUFF INHALATION TWICE A DAY 10.2 May 18, 2020 12:00am July 02, 2020 9:58am Start: 05-18-2020 End: 07-02-2020 take 1 puff(s) by inhalation twice daily Budesonide-Formoterol (Symbicort) 160-4.5 mcg/actuation HFA aerosol inhaler Discontinued 2 PUFF INHALATION TWICE A DAY 10.2 May 18, 2020 1:00am July 02, 2020 10:58am dexamethasone 4 mg oral tablet (20 sources) Corticosteroid Start: 04-06-2021 End: 07-07-2021 take 1 tablet by mouth once daily Dexamethasone (Decadron) 4 mg tablet Discontinued 4 mg PO DAILY April 06, 2021 1:00am July 07, 2021 10:04am doxycycline hyclate 100 mg oral capsule (20 sources) Tetracycline-class Drug Start: 05-21-2018 End: 07-03-2018 take 1 capsule by mouth twice daily Doxycycline Hyclate 100 MG capsule Discontinued 100 mg PO TWICE A DAY May 21, 2018 1:00am July 03, 2018 5:06pm Flucelvax Quad 7749-9091 (PF) (flu vac qs 2017(4 yr up)CD(PF)) 60 mcg (15 mcg x (3 sources) Start: 02-04-2018 End: 02-04-2018 inject 15 ug by intramuscular injection once Flucelvax Quad (PF) (flu vac qs 2017(4 yr up)CD(PF)) 60 mcg (15 mcg x Discontinued 60 MCG IM ONCE February 04, 2018 12:23pm February 04, 2018 1:29pm 120 actuat fluticasone propionate 0.22 mg/actuat metered dose inhaler (20 sources) Corticosteroid Start: 02-16-2020 End: 02-16-2020 Fluticasone Propionate (Flovent Hfa) 220 mcg/actuation HFA aerosol inhaler Discontinued 2 NMA INHALATION TWICE A DAY February 16, 2020 1:00am February 16, 2020 4:13pm administer with spacer Start: 02-16-2020 End: 02-16-2020 take 1 puff(s) by inhalation twice daily Fluticasone Propionate (Flovent Hfa) 220 mcg/actuation HFA aerosol inhaler Discontinued 2 PUFF INHALATION TWICE A DAY February 16, 2020 1:00am February 16, 2020 4:13pm administer with spacer Start: 09-25-2018 End: 10-31-2019 Fluticasone Propionate 50 mcg/actuation spray,suspension Discontinued 2 NMA INTRANASAL DAILY September 25, 2018 12:00am October 31, 2019 2:31pm Start: 09-25-2018 End: 10-31-2019 Fluticasone Propionate Disco ntinued 2 SPRAY INTRANASAL DAILY September 25, 2018 12:00am October 31, 2019 2:31pm Fluticasone Furoate-Vilanterol (20 sources) Corticosteroid, beta2-Adrenergic Agonist Start: 03-12-2017 End: 08-06-2018 Fluticasone Furoate-Vilanterol (Breo Ellipta) 200-25 mcg/dose blister with device Discontinued 1 INH INHALATION daily March 12, 2017 2:33pm August 06, 2018 11:49am Start: 03-12-2017 End: 08-06-2018 Fluticasone Furoate-Vilanter ol (Breo Ellipta) 200-25 mcg/dose blister with device Discontinued 1 NMA INHALATION daily March 12, 2017 1:00am August 06, 2018 11:49am Start: 03-12-2017 End: 08-06-2018 Fluticasone Furoate-Vilanter ol (Breo Ellipta) 200-25 mcg/dose blister with device Discontinued 1 INH INHALATION daily March 12, 2017 12:00am August 06, 2018 10:49am Start: 03-12-2017 End: 08-06-2018 Fluticasone Furoate-Vilanter ol (Breo Ellipta) 200-25 mcg/dose blister with device Discontinued 1 INH INHALATION daily March 12, 2017 1:00am August 06, 2018 11:49am Start: 11-22-2015 take 1 puff(s) by in halation once daily BREO ELLIPTA 200-25 MCG/INH AEPB 1 puff daily FLUTICASONE FUROATE-VILANTEROL [id number] Anthonyrosalina Jalloh DO Start: 11-22-2015 BREO ELLIPTA 2 00-25 MCG/INH AEPB 1 INH one time per kimberly FLUTICASONE FUROATE-VILANTEROL [id number] Brisa Ball LPN Start: 11-22-2015 take 1 puff(s) by in halation once daily BREO ELLIPTA 200-25 MCG/INH AEPB 1 puff daily FLUTICASONE FUROATE-VILANTEROL [id number] Anthony Doni Jalloh DO Start: 11-22-2015 take 1 puff(s) by in halation once daily BREO ELLIPTA 200-25 MCG/INH AEPB 1 puff daily FLUTICASONE FUROATE-VILANTEROL [id number] Anthony Doni Jalloh DO Start: 11-22-2015 take 200-25 ug by in halation once BREO ELLIPTA 200-25 MCG/INH AEPB 1 INH one time per kimberly FLUTICASONE FUROATE-VILANTEROL [id number] Brisa Ball LPN 120 actuat formoterol fumarate 0.0048 mg/actuat / glycopyrrolate 0.009 mg/actuat metered dose inhaler (20 sources) beta2-Adrenergic Agonist Start: 02-16-2020 End: 02-16-2020 Glycopyrrolate-Formoterol (Bevespi Aerosphere) 9-4.8 mcg HFA aerosol inhaler Discontinued 2 NMA INHALATION every day in the morning and in the evening February 16, 2020 1:00am February 16, 2020 4:13pm Start: 02-16-2020 End: 02-16-2020 Glycopyrrolate-Formoterol (B evespi Aerosphere) 9-4.8 mcg HFA aerosol inhaler Discontinued 2 PUFF INHALATION every day in the morning and in the evening February 16, 2020 1:00am February 16, 2020 4:13pm 12 hr guaiFENesin 1200 mg extended release oral tablet (20 sources) Start: 01-18-2018 End: 02-25-2018 take 1 tablet by mouth every twelve hours Guaifenesin 1,200 mg tablet extended release 12hr Discontinued 1200 mg PO Q12H January 18, 2018 12:00am February 25, 2018 12:53pm ipratropium 0.5 mg-albuterol 2.5 mg/2.5 mL solution for nebulization (3 sources) Start: 07-27-2018 End: 07-27-2018 ipratropium 0.5 mg-albuterol 2.5 mg/2.5 mL solution for nebulization Discontinued 2.5 ML continuous nebulization ONCE July 27, 2018 1:01pm July 27, 2018 1:34pm loratadine 10 mg oral capsule (20 sources) Start: 08-14-2018 End: 02-14-2024 take 1 capsule by mouth once daily Loratadine 10 mg capsule Discontinued 10 mg PO daily August 01, 2022 8:27am February 14, 2024 2:14pm methylPREDNISolone 4 mg oral tablet (9 sources) Corticosteroid Start: 01-28-2024 End: 02-14-2024 Methylprednisolone 4 mg tablets,dose pack Discontinued mg PO January 28, 2024 12:00am February 14, 2024 2:11pm Start: 05-16-2023 End: 07-02-2023 take 1 tablet by mouth once Methylprednisolone (Medrol (Artem)) 4 mg tablets,dose pack Discontinued 0 PO per package directions May 16, 2023 1:00am July 02, 2023 9:35am PO PER PKG DIR montelukast 10 mg oral tablet (20 sources) Leukotriene Receptor Antagonist Start: 01-28-2024 End: 02-14-2024 take 1 tablet by mouth once daily Montelukast (Singulair) 10 mg tablet Discontinued 10 mg PO daily January 28, 2024 12:00am February 14, 2024 2:13pm Start: 08-06-2018 End: 01-04-2021 take 1 tablet by mouth once daily in the evening Montelukast (Singulair) 10 mg tablet Discontinued 10 mg PO EVERY EVENING October 31, 2019 2:30pm January 04, 2021 11:33am Mupirocin (20 sources) RNA Synthetase Inhibitor Antibacterial Start: 08-06-2017 End: 08-16-2017 Mupirocin Calcium (Bactroban Nasal) 2 % ointment Discontinued 1 APPLIC INTRANASAL TWICE A DAY 1 August 06, 2017 11:34am August 16, 2017 12:06am Start: 08-06-2017 End: 08-16-2017 Mupirocin Calcium (Bactroban Nasal) 2 % ointment Discontinued 1 NMA INTRANASAL TWICE A DAY 1 August 06, 2017 12:00am August 15, 2017 12:00am August 16, 2017 12:06am Start: 08-06-2017 End: 08-16-2017 Mupirocin Calcium (Bactroban Nasal) 2 % ointment Discontinued 1 APPLIC INTRANASAL TWICE A DAY 1 August 05, 2017 11:00pm August 15, 2017 11:06pm Start: 08-06-2017 End: 08-16-2017 Mupirocin Calcium (Bactroban Nasal) 2 % ointment Discontinued 1 APPLIC INTRANASAL TWICE A DAY 1 August 06, 2017 12:00am August 16, 2017 12:06am nitrofurantoin, macrocrystals 25 mg / nitrofurantoin, monohydrate 75 mg oral capsule (20 sources) Nitrofuran Antibacterial Start: 02-08-2022 End: 02-13-2022 take 1 capsule by mouth every twelve hours at mealtime Nitrofurantoin Monohyd/M-Cryst (Macrobid) 100 mg capsule Discontinued 100 mg PO Q12H 01 11February 08, 2022 12:00am February 12, 2022 12:00am February 13, 2022 1:03am must administer with a meal/food Start: 11-09-2021 End: 11-14-2021 take 1 capsule by mouth every twelve hours at mealtime Nitrofurantoin Monohyd/M-Cryst (Macrobid) 100 mg capsule Discontinued 100 mg PO Q12H 01 11November 09, 2021 12:00am November 13, 2021 12:00am November 14, 2021 12:03am must administer with a meal/food Start: 09-10-2020 End: 09-17-2020 take 1 capsule by mouth every twelve hours at mealtime Nitrofurantoin Monohyd/M-Cryst 100 mg capsule Discontinued 1 NMA PO Q12H 14 7 September 10, 2020 12:00am September 16, 2020 12:00am September 17, 2020 12:01am administer with a meal/food; swallow whole; do not open, crush, dissolve , or chew Start: 03-12-2017 End: 01-18-2018 take 1 capsule by mouth every twelve hours Nitrofurantoin Monohyd/M-Cryst (Macrobid) 100 mg capsule Discontinued 100 mg PO Q12H March 12, 2017 1:00am January 18, 2018 12:58pm Start: 11-09-2016 MACROBID 100 M G CAPS 1 capsule twice a day NITROFURANTOIN MONOHYD MACRO [id number] Catracho POSADA Start: 10-09-2016 End: 10-16-2016 NITROFURANTOIN MACROCRYSTAL 100 MG CAPS Take 1 capsule every 12 hours NITROFURANTOIN MACROCRYSTAL [id number] Iker POSADA nystatin 943823 unt/ml oral suspension (20 sources) Polyene Antifungal Start: 01-18-2018 End: 02-25-2018 Nystatin 100,000 unit/mL suspension Discontinued 5 mL MUCOUS MEM THREE TIMES A DAY 250 January 18, 2018 12:00am February 25, 2018 12:53pm swish and swallow 5 cc three times per day for 10 days Start: 01-18-2018 End: 02-25-2018 Nystatin Discontinued 5 ML M UCOUS MEM THREE TIMES A DAY 250 January 18, 2018 12:00am February 25, 2018 12:53pm swish and swallow 5 cc three times per day for 10 days phenazopyridine hydrochloride 100 mg oral tablet (20 sources) Start: 03-12-2017 End: 02-25-2018 take 1 tablet by mouth three times daily Phenazopyridine (Pyridium) 100 mg tablet Discontinued 100 mg PO THREE TIMES A DAY March 12, 2017 1:00am February 25, 2018 12:54pm Start: 11-09-2016 PYRIDIUM 100 M G TABS 1 tablet 3 times a day as needed PHENAZOPYRIDINE HCL [id number] Catracho POSADA predniSONE 10 mg oral tablet (20 sources) Start: 08-13-2023 End: 09-10-2024 take 1 tablet by mouth once daily Prednisone 10 mg tablet Discontinued 10 mg PO daily February 14, 2024 1:00am September 10, 2024 1:44pm Start: 07-02-2023 End: 08-13-2023 Prednisone 10 mg tablet Discontinued 10 mg PO daily August 02, 2023 12:00am August 13, 2023 8:45am take 4 tabs for three days, then 3 tabs for three days, then 2 tabs for three days, then 1 tab for 3 days Start: 02-19-2023 End: 04-20-2023 Prednisone 10 mg tablet Discontinued 10 mg PO daily February 19, 2023 1:00am April 20, 2023 1:34pm take 4 tabs for three days, then 3 tabs for three days, then 2 tabs for three days, then 1 tab for 3 days Start: 12-15-2022 End: 2023 take 2 tablets by mouth once daily Prednisone 20 mg tablet Discontinued 40 mg PO DAILY 01 11December 15, 2022 12:00am 2023 2:11pm Start: 12-15-2022 End: 2023 take 40 mg by mouth once daily Prednisone Discontinued 40 MG PO DAILY 01 11December 15, 2022 12:00am 2023 2:11pm Start: 10-13-2022 End: 11-02-2022 Prednisone 10 mg tablet Discontinued 10 mg PO daily October 13, 2022 12:00am November 02, 2022 3:15pm take 4 tabs for three days, then 3 tabs for three days, then 2 tabs for three days, then 1 tab for 3 days Start: 08-01-2022 End: 10-13-2022 take 3 tablets by mouth once daily at mealtime Prednisone 20 mg tablet Discontinued 60 mg PO daily August 01, 2022 12:00am October 13, 2022 8:19am administer with food or milk Start: 08-01-2022 End: 10-13-2022 take 60 mg by mouth once daily at mealtime Prednisone Discontinued 60 MG PO daily August 01, 2022 12:00am October 13, 2022 8:19am administer with food or milk Start: 02-09-2020 End: 05-18-2020 Prednisone 10 mg tablet Discontinued 10 mg PO daily February 09, 2020 1:00am May 18, 2020 11:44am take 4 tabs for three days, then 3 tabs for three days, then 2 tabs for three days, then 1 tab for 3 days Start: 03-27-2019 End: 07-29-2019 take 3 tablets by mouth once daily at mealtime Prednisone 20 mg tablet Discontinued 60 mg PO daily June 10, 2019 3:55pm July 29, 2019 1:44pm administer with food or milk Start: 03-27-2019 End: 07-29-2019 take 60 mg by mouth once daily at mealtime Prednisone Discontinued 60 MG PO daily June 10, 2019 3:55pm July 29, 2019 1:44pm administer with food or milk Start: 10-07-2018 End: 11-29-2018 Prednisone 10 mg tablet Discontinued 10 mg PO daily October 07, 2018 12:00am November 29, 2018 9:11am take 4 tabs for three days, then 3 tabs for three days, then 2 tabs for three days, then 1 tab for 3 days Start: 08-06-2018 End: 09-25-2018 take 2 tablets by mouth once daily Prednisone 20 mg tablet Discontinued 40 mg PO DAILY August 06, 2018 12:00am September 25, 2018 10:52am Start: 08-06-2018 End: 09-25-2018 take 40 mg by mouth once daily Prednisone Discontinued 40 MG PO DAILY August 06, 2018 12:00am September 25, 2018 10:52am Start: 07-09-2018 End: 07-27-2018 Prednisone 10 mg tablet Discontinued 10 mg PO daily July 09, 2018 12:00am July 27, 2018 1:07pm take 4 tabs for three days, then 3 tabs for three days, then 2 tabs for three days, then 1 tab for 3 days Start: 02-25-2018 End: 04-04-2018 take 4 tablets by mouth once daily, then take 3 tablets by mouth once daily, then take 2 tablets by mouth once daily, then take 1 tablet by mouth once daily Prednisone 10 mg tablet Discontinued 10 mg PO DAILY February 25, 2018 1:00am April 04, 2018 10:15am 4 tablets daily for 3 days, then 3 tablets daily for 3 days, then 2 tablets daily for 3 days, then 1 tablet daily for 3 days. Start: 10-24-2017 End: 02-04-2018 Prednisone 10 mg tablet Discontinued 10 mg PO daily January 15, 2018 12:00am February 04, 2018 12:46pm take 4 tabs for three days, then 3 tabs for three days, then 2 tabs for three days, then 1 tab for 3 days Start: 10-23-2015 End: 08-06-2017 take 3 tablets by mouth once daily Prednisone 20 MG tablet Discontinued 60 mg PO DAILY October 23, 2015 12:00am August 06, 2017 10:51am Start: 10-23-2015 End: 08-06-2017 take 60 mg by mouth once daily Prednisone Discontinued 60 MG PO DAILY October 23, 2015 12:00am August 06, 2017 10:51am rosuvastatin calcium 5 mg oral tablet (20 sources) HMG-CoA Reductase Inhibitor Start: 02-14-2024 End: 09-10-2024 take 1 tablet by mouth once daily Rosuvastatin 5 mg tablet Discontinued 5 mg PO daily February 14, 2024 1:00am September 10, 2024 1:44pm Start: 10-23-2015 End: 03-12-2017 take 1 tablet by mouth once daily Rosuvastatin 20 MG tablet Discontinued 20 mg PO DAILY October 23, 2015 12:00am March 12, 2017 3:32pm PNEUMOCOCCAL 13-FAVIAN CONJ VACC (2 sources) Inactivated Pneumococcal Vaccine Start: 11-22-2015 PREVNAR 13 SUSP Administer 1 dose PNEUMOCOCCAL 13-FAVIAN CONJ VACC [id number] Brisa Ball [employer] Start: 11-22-2015 End: 01-03-2016 PREVNAR 13 SUSP Administer 1 dose PNEUMOCOCCAL 13-FAVIAN CONJ VACC [id number] Kristen Marie [employer] sulfamethoxazole 800 mg / trimethoprim 160 mg oral tablet (20 sources) Dihydrofolate Reductase Inhibitor Antibacterial, Sulfonamide Antimicrobial Start: 04-04-2021 End: 07-07-2021 Sulfamethoxazole-Trimethopri m (Bactrim Ds) 800-160 mg tablet Discontinued 1 {tbl} PO TWICE A DAY April 04, 2021 1:00am July 07, 2021 10:04am Tiotropium Natalbany (20 sources) Anticholinergic Start: 05-18-2020 End: 07-02-2020 take 1 puff(s) by inhalation once daily Tiotropium Natalbany (Spiriva Respimat) 2.5 mcg/actuation mist Discontinued 2 PUFF INHALATION daily May 18, 2020 12:05pm July 02, 2020 10:58am Start: 05-18-2020 End: 07-02-2020 take 2.5 ug by inhalation once daily Tiotropium Natalbany (Spiriva Respimat) 2.5 mcg/actuation mist Discontinued 2 NMA INHALATION daily May 18, 2020 1:00am July 02, 2020 10:58am Start: 05-18-2020 End: 07-02-2020 take 1 puff(s) by inhalation once daily Tiotropium Natalbany (Spiriva Respimat) 2.5 mcg/actuation mist Discontinued 2 PUFF INHALATION daily May 18, 2020 12:00am July 02, 2020 9:58am Start: 05-18-2020 End: 07-02-2020 take 1 puff(s) by inhalation once daily Tiotropium Natalbany (Spiriva Respimat) 2.5 mcg/actuation mist Discontinued 2 PUFF INHALATION daily May 18, 2020 1:00am July 02, 2020 10:58am Start: 02-25-2018 End: 08-06-2018 Tiotropium Natalbany 18 mcg ca psule, w/inhalation device Discontinued 1 NMA INHALATION DAILY February 25, 2018 1:00am August 06, 2018 11:49am Start: 12-02-2015 take 1 puff(s) by in halation once daily SPIRIVA HANDIHALER 18 MCG CAPS INH 1 puff daily TIOTROPIUM BROMIDE MONOHYDRATE [id number] Kristen Marie [employer]ENER Start: 12-02-2015 take 1 capsule by in halation once daily SPIRIVA HANDIHALER 18 MCG CAPS INH one time per day TIOTROPIUM BROMIDE MONOHYDRATE [id number] Brisa Ball [employer]URE STRAIGHTENER Start: 12-02-2015 SPIRIVA HANDIH ALER 18 MCG CAPS 2 puffs daily TIOTROPIUM BROMIDE MONOHYDRATE [id number] Anthony Marion Shubham DO Start: 12-02-2015 take 1 puff(s) by in halation once daily SPIRIVA HANDIHALER 18 MCG CAPS INH 1 puff daily TIOTROPIUM BROMIDE MONOHYDRATE [id number] Kristen Marie [employer]URE STRA[employer]ENER Start: 12-02-2015 take 1 capsule by in halation once daily SPIRIVA HANDIHALER 18 MCG CAPS INH one time per day TIOTROPIUM BROMIDE MONOHYDRATE [id number] Brisa Ball [employer]URE STRAIGHTENER Start: 12-02-2015 SPIRIVA HANDIH ALER 18 MCG CAPS 2 puffs daily TIOTROPIUM BROMIDE MONOHYDRATE [id number] Anthony Jalloh DO Start: 12-02-2015 SPIRIVA HANDIH ALER 18 MCG CAPS 2 puffs daily TIOTROPIUM BROMIDE MONOHYDRATE [id number] Anthony Doni Jalloh DO Start: 10-23-2015 End: 08-06-2017 Tiotropium Natalbany 1 PUFF in haler Discontinued 1 NMA INHALATION DAILY October 23, 2015 12:00am August 06, 2017 11:13am Start: 10-23-2015 End: 08-06-2017 take 1 puff(s) by inhalation once daily Tiotropium Natalbany Discontinued 1 PUFF INHALATION DAILY October 23, 2015 12:00am August 06, 2017 11:13am 30 actuat umeclidinium 0.0625 mg/actuat dry powder inhaler (20 sources) Anticholinergic Start: 08-06-2017 End: 02-25-2018 take 62.5 ug by inhalation once daily Umeclidinium (Incruse Ellipta) 62.5 mcg/actuation blister with device Discontinued 1 NMA INHALATION daily August 06, 2017 12:00am February 25, 2018 12:54pm ZOSTER VACCINE LIVE (2 sources) Start: 11-22-2015 ZOSTAVAX [id number] UNT/0.65ML SUSR Adminiser 1 dose ZOSTER VACCINE LIVE [id number] Brisa Ball [employer]ENER Start: 11-22-2015 End: 01-03-2016 ZOSTAVAX 35335 UNT/0.65ML LONG SR Adminiser 1 dose ZOSTER VACCINE LIVE [id number] Kristen Marie [employer] venlafaxine 75 mg oral tablet (20 sources) Serotonin and Norepinephrine Reuptake Inhibitor Start: 02-25-2018 End: 11-02-2022 take 1 tablet by mouth once daily Venlafaxine 75 mg tablet Discontinued 75 mg PO DAILY 60 30 February 25, 2018 1:00am November 02, 2022 3:15pm Start: 12-30-2015 End: 10-09-2016 take 1 tablet by mouth once daily VENLAFAXINE HCL 75 MG TABS One tablet by mouth daily VENLAFAXINE HCL [id number] Leilani Baron [employer] Problems Active Problems Problem Classification Problem Date Documented Da te Episodic/Chronic Anxiety disorders (3 sources) Social phobia; Translations: [Social phobia, unspecified] 01-28-2024 Chronic Asthma (20 sources) Uncomplicated severe persistent asthma; Translations: [Severe persistent asthma, uncomplicated] Onset: 10-15-2024 02-09-2020 Chronic Comment on above: on [place] Chronic obstructive pulmonary disease and bronchiectasis (20 sources) Chronic obstructive lung disease; Translations: [Asthma-chronic obstructive pulmonary disease overlap syndrome] Onset: 12-02-2015 12-02-2015 Chronic Coronary atherosclerosis and other heart disease (18 sources) Coronary arteriosclerosis; Translations: [Atherosclerotic heart disease of [place] coronary artery without angina pectoris] Onset: 12-30-2015 12-30-2015 Chronic Disorders of lipid metabolism (10 sources) Hyperlipidemia; Translations: [Hyperlipidemia, unspecified] Onset: 12-30-2015 12-30-2015 Chronic Genitourinary symptoms and ill-defined conditions (20 sources) Increased frequency of urination; Translations: [Dysuria] Onset: 11-09-2016 11-09-2016 Episodic Glaucoma (3 sources) Glaucoma; Translations: [Unspecified glaucoma] 02-14-2024 Chronic Mycoses (20 sources) Candidiasis of mouth; Translations: [Candidal stomatitis] 01-18-2018 Episodic Other circulatory disease (13 sources) H/O: heart disorder; Translations: [Personal history of other diseases of the circulatory system] 12-15-2022 Episodic Other lower respiratory disease (10 sources) Dyspnea on exertion; Translations: [Other forms of dyspnea] Onset: 12-02-2015 12-02-2015 Episodic Other lower respiratory disease (20 sources) Nodule of lung; Translations: [Solitary pulmonary nodule] 08-06-2018 Episodic Other lower respiratory disease (5 sources) Solitary pulmonary nodule; Translations: [Solitary pulmonary nodule] Onset: 09-10-2024 Episodic Other lower respiratory disease (7 sources) Dyspnea; Translations: [Shortness of breath] 04-20-2023 Episodic Other lower respiratory disease (7 sources) Wheezing; Translations: [Wheezing] 04-20-2023 Episodic Other lower respiratory disease (4 sources) Wheezing; Translations: [Wheezing] 04-20-2023 Episodic Other nutritional; endocrine; and metabolic disorders (7 sources) Obesity; Translations: [Obesity, unspecified] Onset: 12-02-2015 12-02-2015 Chronic Other upper respiratory infections (20 sources) Acute pharyngitis; Translations: [Acute pharyngitis, unspecified] Episodic Peripheral and visceral atherosclerosis (7 sources) Peripheral vascular disease; Translations: [Peripheral vascular disease, unspecified] Onset: 12-31-2015 12-31-2015 Chronic Residual codes; unclassified (8 sources) Central sleep apnea syndrome; Translations: [Obstructive sleep apnea syndrome] Onset: 12-02-2015 02-03-2016 Chronic Residual codes; unclassified (20 sources) Obstructive sleep apnea syndrome; Translations: [Obstructive sleep apnea (adult) (pediatric)] Onset: 12-02-2015 12-02-2015 Chronic Residual codes; unclassified (13 sources) Obstructive sleep apnea (adult) (pediatric); Translations: [Obstructive sleep apnea (adult)(pediatric)] Onset: 09-10-2024 Chronic Retinal detachments; defects; vascular occlusion; and retinopathy (3 sources) Degenerative disorder of macula ; Translations: [Unspecified macular degeneration] 02-14-2024 Chronic Substance-related disorders (20 sources) Tobacco dependence in remission; Translations: [Nicotine dependence, unspecified, in remission] Onset: 12-02-2015 12-02-2015 Chronic Substance-related disorders (10 sources) Nicotine dependence, unspecified, in remission; Translations: [Tobacco use disorder] Onset: 03-12-2024 Chronic Urinary tract infections (20 sources) Urinary tract infectious disease; Translations: [Cystitis] Onset: 10-09-2016 10-09-2016 Episodic Viral infection (20 sources) Disease caused by 2019-nCoV; Translations: [COVID-19] Episodic Past or Other Problems Problem Classification Problem Date Documented Da te Episodic/Chronic Heart valve disorders (7 sources) Heart murmur; Translations: [Cardiac murmur, unspecified] Onset: 12-30-2015 12-30-2015 Episodic Nonspecific chest pain (7 sources) Chest pain; Translations: [Chest pain, unspecified] Onset: 12-30-2015 12-30-2015 Episodic Other lower respiratory disease (5 sources) Shortness of breath; Translations: [Shortness of breath] Onset: 02-14-2024 04-20-2023 Episodic Results Test Name Value Interpretation Reference Range Facility Pulmonary Visit Reporton Pulmonary Visit Report [facility] of [address] [place] [address] OFFICE VISIT Date of Service: 09/10/24 MR#: [id number] Acct: [id number] Name: GONZALEZTARSHA DOMINGA Rep #: [id number] : 1955 Provider: NELI De Jesus Age/Sex: 69/F Location: [facility] Status: Signed Assessment and Plan Assessment and Plan (1) Asthma-COPD overlap syndrome: Status: Chronic Comment: on Nucala Plan: Stable, no signs of exacerbation of severe asthma/COPD overlap syndrome today. No change in maintenance medications. Encouraged her to take Trelegy as prescribed and reestablished on Nucala. No additional testing at this time. Contact the office with any signs of new or worsening symptoms. Follow-up in 6 months. (2) Tobacco abuse, in remission: Status: Chronic Plan: She is eligible for LDCT, ordered for December 2024. Continue to encourage ongoing smoking cessation. LDCT ordered accordingly. (3) PHILIP (obstructive sleep apnea): Status: Chronic Plan: Deteriorated. The patient has reestablished with PAP therapy, unfortunately her number of events is not controlled. In fact, she is having a high number of central events. I sec that the patient may need a backup respiratory rate. She is agreeable to a titration study. Return to the office in 3 months, at which time she will be on her new settings. Orders: Orders Polysomnography with PAP Today G47.33 - Obstructive sleep apnea (adult) (pediatric) Medications: Refilled albuterol sulfate 90 mcg/actuation administer with spacer 2 puffs inhalation Q4H PRN 8.5 grams 6RF shortness of breath or wheezing R91.1 - Solitary pulmonary nodule prednisone 10 mg PO QDAY 90 tabs 3RF G47.33 - Obstructive sleep apnea (adult) (pediatric) Plan This note was generated with [employer] dictation software. It may contain incorrect words, spelling, and punctuation that were not noted in checking the note before signing. Plan Details Follow Up: 01/07/25 HPI 6 M FU Chief Complaint: Routine follow-up HPI Comments Details: This patient presents to the office today for follow-up of her asthma/COPD overlap syndrome complicated by obstructive sleep apnea. She is ambulatory and on room air. She has not recently been seen in the ED or urgent care for any respiratory illness. She has not recently required antibiotics. She has been compliant with use of Trelegy but has been using it as needed. She is on prednisone 10 mg. She does report rinsing her mouth out after each use. She denies any medication side effect such as sore throat or thrush. She is no longer on Nucala monthly injections, she quit a few months ago. She decided to take her off the medication for a few months because she was vaping and thought that it may have falsely affected her blood work. She has shortness of breath on exertion. She is exerted easily. She denies any cough, sputum production or hemoptysis. She admits to wheezing, but denies any chest tightness,chest pain or palpitations. She has not had any fever, chills or body aches. She has resumed compliance with PAP therapy. She states I love that machine, I cannot sleep without it. She is not having dry mouth or mask leak. She denies nocturia. Compliance report for the past 30 days shows 90% compliance with average use of 10 hours and 17 minutes per night. Current setting is 14/10 cmH2O with residual AHI of 19.1 events per hour. 8.8 events per hour are of central nature. Leaks do not appear to be problematic. 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 DME Vendor: [employer] Accompanied by: Self Is patient in pain?: No Allergies codeine Allergy (Verified 09/10/24 14:38) Itching morphine Allergy (Verified 09/10/24 14:38) Itching doxycycline Adverse Reaction (Severe, Verified 09/10/24 14:38) severe headaches and muscle spasms to the chest Medications ???Medication ???Instructions ???Recorded ???Confirmed ???Type clopidogrel 75 mg tablet 75 mg PO DAILY 10/23/15 09/10/24 H istory spacer #1 ea 07/29/19 09/10/24 Rx Disability Placard #1 ea 01/04/21 09/10/24 Rx albuterol sulfate 2.5 mg/3 mL 2.5 mg (3 mL) inhalation Q4H PRN 0 08/01/22 09/10/24 Rx (0.083 %) solution for nebulization #120 vials estradiol 0.025 mg/24 hr weekly 1 patch transdermal QWEEK 04/20/23 09/10/24 History transdermal patch fluticasone fur. 100 mcg-umeclid 1 inh inhalation DAILY 04/20/23 0 (more content not included)... Normal [facility] Pulmonary Visit Reporton Pulmonary Visit Report [facility] of [place] [address] [place] [address] OFFICE VISIT Date of Service: 03/12/24 MR#: [id number] Acct: [id number] Name: LISABRITTNEETARSHAISAI ORR Rep #: [id number] : 1955 Provider: NELI De Jesus Age/Sex: 69/F Location: [facility].[facility] Status: Signed with Addenda ADDENDUM by NELI De Jesus on 06/04/24 at 1139 Assessment and Plan Assessment and Plan (1) Asthma-COPD overlap syndrome: Status: Chronic Comment: on Nucala (2) Tobacco abuse, in remission: Status: Chronic (3) PHILIP (obstructive sleep apnea): Status: Chronic Plan: For clarification purposes. 60-day compliance report reviewed on June 04, 2024, data from April 05, 2024 through June 03, 2024 reviewed. The patient is 83% compliant with an average use of 10 hours and 2 minutes per night. Current setting is BiPAP 14/10 cm of water with a residual AHI of 7.6 events per hour. Leaks do not appear to be problematic. The patient is using and benefiting from PAP therapy. Orders: Orders Low Dose CT Lung Screening 12/08/24 F17.200 - Nicotine dependence, unspecified, uncomplicated, F17.201 - Nicotine dependence, unspecified, in remission, F17.210 - Nicotine dependence, cigarettes, uncomplicated Plan Details Follow Up: 6 Months (CSM) 06/04/24 1139 Date Cathie De Jesus NP [facility] cc: Dr. Naomi Whyte, DO * Signed Assessment and Plan Assessment and Plan (1) Asthma-COPD overlap syndrome: Status: Chronic Comment: on Nucala Plan: Stable, no signs of exacerbation of severe asthma/COPD overlap syndrome today. No change in maintenance medications. The patient is doing well on Nucala and Trelegy. She occasionally utilizes 10 mg of prednisone for 2 or 3 days in a row, this may happen once every 4 to 6 weeks. If you recall, previously she was on 10 mg of prednisone daily chronically. No additional testing at this time. Contact the office with any signs of new or worsening symptoms. Follow-up in 6 months. (2) Tobacco abuse, in remission: Status: Chronic Plan: She is eligible for LDCT, ordered for December 2024. Continue to encourage ongoing smoking cessation. LDCT ordered accordingly. Orders: Orders Low Dose CT Lung Screening 12/08/24 F17.200 - Nicotine dependence, unspecified, uncomplicated, F17.201 - Nicotine dependence, unspecified, in remission, F17.210 - Nicotine dependence, cigarettes, uncomplicated Plan Details Follow Up: 6 Months (CSM) HPI RESCHEDULED 6 M FU Chief Complaint: Test results HPI Comments Details: This patient presents to the office today for follow-up of her asthma/COPD overlap syndrome complicated by obstructive sleep apnea for which she has been noncompliant and to discuss test results. She is ambulatory and on room air. She recently returned from a trip to [place], unfortunately her brother from cancer. She has not recently been seen in the ED or urgent care for any respiratory illness. She has not recently required antibiotics. She has been compliant with use of Trelegy 1 puff occaisionally, she is on prednisone 10 mg that she uses as need. She uses it a couple days a month. She does report rinsing her mouth out after each use. She denies any medication side effect such as sore throat or thrush. Sean is on Nucala monthly injections at the infusion center. She is currently using her albuterol HFA 3 times daily. She has shortness of breath on exertion. She denies any cough, sputum production or hemoptysis. She denies any wheezing, chest tightness,chest pain or palpitations. She has not had any fever, chills or body aches. The patient has discontinued the use of her Pap device. Test results personally reviewed the patient: Low-dose CT lung screening completed on December 28, 2023. Noted is a 2 mm pleural-based nodule in the periphery of the left upper lobe. This is unchanged. There are no new pulmonary nodules. Recommendation is continue with screening LDCT in 12 months. 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 Normal [facility] 12 Lead EKG performed by [facility] on 02-14-2024 12 Lead EKG performed by [facility] [address] [place] [address] 12 Lead EKG performed by [facility] 02/14/24 1008 MR#: [id number] Acct: [id number] Name: TARSHA GONZALEZ DOMINGA Rep #: [id number] : 1955 69 From: Angel Patel MD Attending Dr: Dr. Angel Patel MD Status: DE P AMB Ordering Dr: Angel Patel MD Date: 02/14/24 Location: [facility] Sex: F C Admitted: BMS/12 Lead EKG performed by [facility] ECG Report Interpretation ---Sinus Rhythm -Left atrial enlargement. -Old anterior infarct. -Nonspecific ST depression -Nondiagnostic. ABNORMAL Electronically signed on 02/14/2024 at 16:[address] Angel Patel [employer] Software Version [id number] 02/14/24 1650 Date Angel Patel MD CC: Dr. Naomi Whyte DO Date Dictated: 02/14/241007 Date Transcribed: 02/14/241007 Rehab Spec: Signed Normal [facility] Cardiology Visit Reporton Cardiology Visit Report [facility] [address] [place] [address] OFFICE VISIT Date of Service: 02/14/24 MR#: [id number] Acct: [id number] Name: TARSHA GONZALEZ DOMINGA Rep #: [id number] : 1955 Provider: Dr. Angel noe MD Age/Sex: 69/F [place] [facility] Status: Signed with Addenda ADDENDUM by Dr. Angel Patel MD on 02/14/24 at 1422 HPI History of Present Illness Details: ECG shows normal sinus rhythm at 84 bpm left atrial enlargement cannot rule out old inferior or anterior LA. There are nondiagnostic ST segment changes. This is similar to an old EKG from December 2022. Assessment and Plan Assessment and Plan (1) Atherosclerosis of coronary artery: Status: Acute Qualifiers: Coronary Disease-Associated Artery/Lesion type: [place] artery [place] vs. transplanted heart: [place] heart Associated angina: unspecified whether angina present Qualified Code(s): I25.10 - Atherosclerotic heart disease of [place] coronary artery without angina pectoris (2) TORREZ (dyspnea on exertion): Status: Acute (3) Hyperlipidemia: Status: Acute Qualifiers: Hyperlipidemia type: pure hypercholesterolemia Qualified Code(s): E78.00 - Pure hypercholesterolemia, unspecified Orders: Orders 12 Lead EKG performed by [facility] Today R06.02 - Shortness of breath Echo Complete 3 Weeks R06.02 - Shortness of breath Nuclear Stress Test - Chemical 3 Weeks I25.10 - Atherosclerotic heart disease of [place] coronary artery without angina pectoris, R06.02 - Shortness of breath Lipid Profile 6 Weeks I25.10 - Atherosclerotic heart disease of [place] coronary artery without angina pectoris Liver Profile 6 Weeks I25.10 - Atherosclerotic heart disease of [place] coronary artery without angina pectoris Medications: New rosuvastatin 5 mg PO QDAY 30 tabs 0RF Plan Details Follow Up: 6 Months (With JERMAN and as needed) 02/14/24 1422 Date Angel Patel MD cc: Dr. Naomi Whyte, DO * Signed HPI HPI History of Present Illness Details: Patient is a 69-year-old white female comes in for new patient visit. She is referred for dyspnea on exertion. The patient reports to me that time she can be ambulating just in her house and become so short of breath she feels like she has to crawl from 1 room to the other but she checks her O2 sat on her pulse ox and is 92 to 94%. She does have a history of moderate COPD and reactive airway disease treated with an injection to prevent asthma. She does have an anxiety disorder she has obstructive sleep apnea and she does have a history of coronary disease back in 2001 was cathed and was told that she had a small vessel on the bottom of her heart that was too small to fix and it had collaterals around it her symptoms at that time were a tightness in her back. And that occurred with activity. The patient reports that her dyspnea can occur at rest and with activity but it is almost always with activity. The patient did have a history of minimal internal carotid artery stenosis of 10% around the time of her cath she also had a history of an echocardiogram done in January 2016 which showed normal LV size and EF of 60% there was trivial mitral regurgitation trivial tricuspid regurgitation she had calcification of the mitral and aortic valves. There was no significant mitral stenosis or insufficiency documented. The patient had a recent CT of the chest for lung screening December 22, 2023 that screening showed calcification in the coronary arteries and atherosclerosis of her vasculature. The patient is not diabetic she does not smoke but she has an [id number] smoking history, she is hyperlipidemic and has not been able to take statins but she has never trialed rosuvastatin. 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 Electronics Required: No Accompanied by: Self Is patient in pain?: No Allergies codeine Allergy (Verified 02/14/24 13:11) Itching morphine Allergy (Verified 02/14/24 13:11) Itching doxycycline Adverse Reaction (Severe, Verified 02/14/24 13:11) severe headaches and muscle spasms to the chest Medications ???Medication ???Instructions ???Recorded ???Confirmed ???Type clopidogrel 75 mg tablet 75 mg PO DAILY 10/23/15 01/28/24 History spacer #1 ea 07/29/19 08/02/23 Rx Disability Placard #1 ea 01/04/21 08/02/23 Rx albuterol sulfate 2.5 mg/3 mL 2.5 mg (3 mL) inhalation Q4H PRN 08/01/22 02/14/24 Rx (0.083 %) solution for (more content not included)... Normal [facility] Low Dose CT Lung Screeningon 12-28-[address] Lung Screening [facility] Imaging Services [address] [place], [place] [address] Low Dose CT Lung Screening MR#: [id number] Acct: [id number] Name: TARSHA GONZALEZ Rep #: [id number] : 1955 F 68 From: Cali olmedo DO PCP: Dr. Kamilah Patel MD Status: [facility] CLI Study: Low Dose CT Lung Screening Date of Exam: 12/27 Exam# [id number] Ordering Dr: Cathie De Jesus [facility] [id number] EXAM: CT CHEST, LUNG CANCER SCREENING WITHOUT INTRAVENOUS CONTRAST CLINICAL INDICATION: smoking history 1.5 packs per day x40 years. TECHNIQUE: Helically acquired images were obtained of the chest without intravenous contrast using low dose (LDCT) lung cancer screening protocol. This CT exam was performed using one or more of the following dose reduction techniques: automated exposure control, adjustment of the mA and/or kV according to patient size, and/or use of iterative reconstruction technique. COMPARISON: 12/21/2022; 11/30/2017; 12/29/2015. FINDINGS: LUNGS AND PLEURAL SPACES: 2 mm pleural-based nodule in the periphery of the left upper lobe as seen best on image 65, series 2. This is unchanged. There are no new pulmonary nodules or additional nodules identified. No pneumothorax. HEART: Coronary artery calcifications. Heart size is normal. No pericardial effusion. MEDIASTINUM: No significant abnormality. No mediastinal or hilar adenopathy. Esophagus is unremarkable. No hiatal hernia. THYROID: No significant abnormality. No thyroid lesions. BONES/JOINTS: Degenerative changes in the spine. [place] right scoliotic curvature. No suspicious lytic or blastic abnormality. VASCULATURE: Atherosclerosis. LYMPH NODES: No significant abnormality. No enlarged lymph nodes. CT/Low Dose CT Lung Screening IMPRESSION: ACR Lung CT Screening Reporting And Data System (Lung-RADS) score: 2 - Benign Appearance or Behavior. Recommend continued annual screening with a low-dose CT (LDCT) in 12 months. Electronically Signed: Cali Hoffman DO at 22:20 EDT , CC: NELI De Jesus; Dr. Kamilah Patel MD Rehab Spec: Signed Normal [facility] Absolute lymphocyte countOrd ered By: Jagdish Day on 12-15-2022 Lymphocytes Auto (Unsp spec) [#/Vol] 2.44 10*3/uL 0.83-4.51 [facility] Basophil percentageOrdered B y: Jagdish Day on 12-15-2022 Basophils/100 WBC (Bld) 0.7 % 0-1 [facility] Chloride [Moles/Vol] 109 mmol/L 98-107 [facility] Eosinophils/100 WBC (Bld) 1.5 % 0-5 [facility] Glucose [Mass/Vol] 109 mg/dL 74-106 [facility] Comment on above: Fasting Glucose resu lt from 100 to 125 mg/dL suggests IMPAIRED HOMEOSTASIS per A.D.A. criteria. Neutrophils (Bld) [#/Vol] 2.8 10*3/uL 2.0-7.7 [facility] Neutrophils/100 WBC (Bld) 46.2 % 47-70 [facility] Potassium [Moles/Vol] 3.5 mmol/L 3.5-5.1 [facility] Sodium [Moles/Vol] 138 mmol/L 136-145 [facility] WBC (Bld) [#/Vol] 6.1 10*3/uL 4.4-11.0 [facility] Blood erythrocytes count (nu mber/volume)Ordered By: Jagdish Day on 12-15-2022 RBC (Bld) [#/Vol] 4.90 10*6/uL 4.2-5.4 [facility] Blood hemoglobin measurement (mass/volume)Ordered By: Jagdish Day on 12-15-2022 Hemoglobin (Bld) [Mass/Vol] 14.4 g/dL 12.0-15.0 [facility] Blood lymphocytes/100 leukoc ytesOrdered By: Jagdish Day on 12-15-2022 Lymphocytes/100 WBC (Bld) 40.1 % 19-41 [facility] Blood monocytes/100 leukocyt esOrdered By: Jagdish Day on 12-15-2022 Monocytes/100 WBC (Bld) 11.0 % 0-10 [facility] Blood platelet mean volumeOr dered By: Jagdish Day on 12-15-2022 Platelet mean volume (Bld) [Entitic vol] 9.2 fL 6.2-12.0 [facility] Determination of erythrocyte mean corpuscular volume (MCV)Ordered By: Jagdish Day on 12-15-2022 MCV (RBC) [Entitic vol] 88.6 fL 81-99 [facility] Hematocrit Auto (Bld) [Volum e fraction]Ordered By: Jagdish Day on 12-15-2022 Hematocrit (Bld) [Volume fraction] 43.4 % 37-47 [facility] Laboratory - Chemistry and C hemistry - challengeOrdered By: Jagdish Day on 12-15-2022 CO2 [Moles/Vol] 22.0 mmol/L 21.0-32.0 [facility] Urea nitrogen/Creatinine [Mass ratio] 11.1 mg/mg 10-20 [facility] Laboratory - Hematology and Cell countsOrdered By: Jagdish Day on 12-15-2022 Erythrocyte distribution width (RBC) [Entitic vol] 40.5 fL 35.1-43.9 [facility] Erythrocyte distribution width (RBC) [Ratio] 12.5 % 11.6-14.6 [facility] Immature granulocytes/100 WBC (Bld) 0.500 % 0.0-0.9 [facility] Comment on above: IG% - Immature Granu locytes (promyelocytes, myelocytes and metamyelocytes) > 1% indicates that a LEFT SHIFT is Present. MCH (RBC) [Entitic mass] 29.4 pg 27.0-32.0 [facility] Nucleated RBC/100 WBC (Bld) [Ratio] 0 % 0-5 [facility] MCHC Auto (RBC) [Mass/Vol]Or dered By: Jagdish Day on 12-15-2022 MCHC (RBC) [Mass/Vol] 33.2 g/dL 32-36 [facility] No Panel InformationOrdered By: Jagdish Day on 12-15-2022 Estimated Creatinine Clearance Calc 45.16 ml/min [facility] Estimated GFR (MDRD) Amer 71 mL/min >60 [facility] Comment on above: GFR Calc Estimated GFR (MDRD) Non-Af Amer 59 mL/min >60 [facility] Comment on above: Non- GFR Calc Troponin I High Sensitivity 19 pg/mL 3.0-54.0 [facility] Comment on above: Please Note: New Margareth t Units and Gender Specific Reference Ranges. For more information see Policy Stat Procedure [place] High Sensitivity Troponin (TNIH) and attachments. Platelets bldOrdered By: Reynaldo Day on 12-15-2022 Platelets (Bld) [#/Vol] 321 10*3/uL 150-450 [facility] SARS-CoV-2 (COVID-19) Ag IA. rapid Ql (Resp)Ordered By: Jagdish Day on 12-15-2022 SARS-CoV-2 Antigen (Rapid) SARS-CoV-2 (COVID 19) [facility] SARS-CoV-2 Antigen (Rapid) SARS-CoV-2 (COVID 19) [facility] Serum or plasma calcium aida urement (mass/volume)Ordered By: Jagdish Day on 12-15-2022 Calcium [Mass/Vol] 9.7 mg/dL 8.5-10.1 [facility] Serum or plasma creatinine m easurement (mass/volume)Ordered By: Jagdish Day on 12-15-2022 Creatinine [Mass/Vol] 1.00 mg/dL 0.55-1.02 [facility] Comment on above: The validity of the calculated GFR & GFRAA in patients over 70 years has not been determined. Clinical correlation is essential. Serum or plasma urea nitroge n measurement (mass/volume)Ordered By: Jagdish Day on 12-15-2022 Urea nitrogen [Mass/Vol] 11 mg/dL 7-18 [facility] Thin prep Papanicolaou smear with manual screeningOrdered By: Jagdish Day on 12-15-2022 Thin prep Papanicolaou smear with manual screening 7 5-15 [facility] Culture, urineOrdered By: [facility] on 02-10-2022 Bacteria identified Cx Nom (U) Klebsiella pneumoniae sp pneum [facility] Laboratory - Chemistry and C hemistry - challengeon 02-08-2022 Bilirubin Ql (U) Negative [facility] Glucose Ql (U) Negative [facility] Ketones Ql (U) Small (15+) [facility] pH (U) 5.0 [pH] [facility] Specific gravity (U) [Rel density] 1.030 [facility] Urobilinogen (U) [Mass/Vol] Negative [facility] Laboratory - Hematology and Cell countson 02-08-2022 Hemoglobin Ql (U) Negative [facility] Laboratory - Specimen inform ationon 02-08-2022 Clarity (U) Cloudy [facility] Color (U) AYAH [facility] Laboratory - Urinalysison Nitrite Ql (U) Positive [facility] Protein Ql (U) Negative [facility] No Panel Informationon 02-08 Urine Leukocytes Positive [facility] Urine Non-Hemolyzed Blood Negative [facility] Basophil percentageon 2021 Bilirubin [Mass/Vol] 0.40 mg/dL 0.20-1.00 [facility] Work Phone: Comment on above: For patients on eltr ombopag therapy, use of Dimension Mcguffey TBIL is not recommended. Chloride [Moles/Vol] 110 mmol/L 98-107 [facility] Work Phone: Cholesterol [Mass/Vol] 276 mg/dL <200 [facility] Work Phone: Comment on above: <200 mg/dL Desirable 200-240 mg/dL Borderline >240 mg/dL High Risk Glucose [Mass/Vol] 94 mg/dL 74-106 [facility] Work Phone: Potassium [Moles/Vol] 3.7 mmol/L 3.5-5.1 [facility] Work Phone: Protein [Mass/Vol] 6.6 g/dL 6.4-8.2 [facility] Work Phone: Sodium [Moles/Vol] 141 mmol/L 136-145 [facility] Work Phone: Triglyceride [Mass/Vol] 73 mg/dL <199 [facility] Work Phone: Comment on above: The drugs N-Acetylcy steine and Metamizole may falsely depress this assay.Serum Triglycerides Reference Interval Normal <150 mg/dL Borderline high 150 - 199 mg/dL High 200 - 499 mg/dL Very High > or = 500 mg/dL Laboratory - Chemistry and C hemistry - challengeon 12-15-2021 ALP [Catalytic activity/Vol] 88 U/L 45-117 [facility] Work Phone: [phone] ALT [Catalytic activity/Vol] 20 U/L 13-56 [facility] Work Phone: [phone] CO2 [Moles/Vol] 25.0 mmol/L 21.0-32.0 [facility] Work Phone: [phone] Globulin (S) [Mass/Vol] 3.3 g/dL 2.2-4.2 [facility] Work Phone: [phone] Urea nitrogen/Creatinine [Mass ratio] 9.9 mg/mg 10-20 [facility] Work Phone: [phone] No Panel Informationon 12-15 Estimated GFR (MDRD) Amer 91 mL/min >60 [facility] Work Phone: Comment on above: GFR Calc Estimated GFR (MDRD) Non-Af Amer 76 mL/min >60 [facility] Work Phone: Comment on above: Non- GFR Calc Serum or plasma albumin aida urement (mass/volume)on 12-15-2021 Albumin [Mass/Vol] 3.3 g/dL 3.2-5.0 [facility] Work Phone: [phone] Serum or plasma albumin/glob ulin mass ratioon 12-15-2021 Albumin/Globulin [Mass ratio] 1.0 {ratio} 0.9-2.4 [facility] Work Phone: [phone] Serum or plasma calcium aida urement (mass/volume)on 12-15-2021 Calcium [Mass/Vol] 9.0 mg/dL 8.5-10.1 [facility] Work Phone: [phone] Serum or plasma cholesterol in HDL measurement (mass/volume)on 09-08-2022 Cholesterol in HDL [Mass/Vol] 57 mg/dL >40 [facility] Work Phone: Comment on above: The drugs N-Acetylcy steine and Metamizole may falsely depress this assay. Reference Range HDL <40 mg/dL Low HDL Cholesterol HDL >or= 60 mg/dL High HDL Cholesterol Serum or plasma cholesterol in VLDL measurement (mass/volume)on 12-15-2021 Cholesterol in VLDL [Mass/Vol] 15 mg/dL 5-40 [facility] Work Phone: [phone] Serum or plasma creatinine m easurement (mass/volume)on 12-15-2021 Creatinine [Mass/Vol] 0.80 mg/dL 0.55-1.02 [facility] Work Phone: Comment on above: The validity of the calculated GFR & GFRAA in patients over 70 years has not been determined. Clinical correlation is essential. Serum or plasma low density lipoprotein (LDL) cholesterol measurement (mass/volume)on 12-15-2021 Cholesterol in LDL [Mass/Vol] 204 mg/dL 0-130 [facility] Work Phone: [phone] Serum or plasma urea nitroge n measurement (mass/volume)on 12-15-2021 Urea nitrogen [Mass/Vol] 8 mg/dL 7-18 [facility] Work Phone: [phone] Thin prep Papanicolaou smear with manual screeningon 12-15-2021 Thin prep Papanicolaou smear with manual screening 15 U/L 15-37 [facility] Work Phone: [phone] Thin prep Papanicolaou smear with manual screening 6 5-15 [facility] Work Phone: [phone] Laboratory - Chemistry and C hemistry - challengeon 11-09-2021 Bilirubin Ql (U) Negative [facility] Work Phone: [phone] Glucose Ql (U) Negative [facility] Work Phone: [phone] Ketones Ql (U) Small (15+) [facility] Work Phone: [phone] pH (U) 5.0 [pH] [facility] Work Phone: [phone] Specific gravity (U) [Rel density] 1.030 [facility] Work Phone: Urobilinogen (U) [Mass/Vol] Negative [facility] Work Phone: Laboratory - Hematology and Cell countson 11-09-2021 Hemoglobin Ql (U) Hemolyzed [facility] Work Phone: Laboratory - Specimen inform ationon 11-09-2021 Clarity (U) Cloudy [facility] Work Phone: Color (U) AYAH [facility] Work Phone: Laboratory - Urinalysison Nitrite Ql (U) Negative [facility] Work Phone: Protein Ql (U) Negative [facility] Work Phone: No Panel Informationon 11-09 Urine Leukocytes Positive [facility] Work Phone: Urine Non-Hemolyzed Blood Small [facility] Work Phone: No Panel Informationon 04-06 POC SARS CoV-2 Antigen Positive [facility] Work Phone: Basophil percentageon 2020 Basophil percentage 0-5 SEEN /hpf [facility] Work Phone: Bilirubin Test strip Ql (U)o n 04-04-2021 Bilirubin Ql (U) Negative Negative [facility] Work Phone: Ketones Test strip Ql (U)on 04-04-2021 Ketones Ql (U) 5 mg/dl Negative [facility] Work Phone: Mucus LM Ql (Urine sed)on Mucus Ql (Urine sed) 0 SEEN /hpf [facility] Work Phone: Nitrite Test strip Ql (U)on 04-04-2021 Nitrite Ql (U) Negative Negative [facility] Work Phone: Protein Test strip Ql (U)on 04-04-2021 Protein Ql (U) 30 mg/dl Negative [facility] Work Phone: Squamous epithelial cells de tection in urine sediment by light microscopyon 04-04-2021 Epithelial cells.squamous LM Ql (Urine sed) 0-5 SEEN /hpf [facility] Work Phone: Urine blood detectionon 03-10 RBC Ql (U) 10 /ul Negative [facility] Work Phone: RBC Ql (U) 0 SEEN /hpf [facility] Work Phone: Urine clarityon 04-04-2021 Clarity (U) Sl. Cloudy Clear [facility] Work Phone: Urine color determinationon 04-04-2021 Color (U) Yellow Yellow [facility] Work Phone: Urine glucose detectionon Glucose Ql (U) Normal mg/dl Normal [facility] Work Phone: Urine leukocyte esterase det ection by dipstickon 04-04-2021 Leukocyte esterase Test strip Ql (U) 100 /ul Negative [facility] Work Phone: Urine pHon 04-04-2021 pH (U) 5.0 [pH] [facility] Work Phone: Urine sediment bacteria coun t by microscopy (number/high power field)on 04-04-2021 Bacteria LM.HPF (Urine sed) [#/Area] RARE /hpf None Seen [facility] Work Phone: Urine specific gravity measu rementon 04-04-2021 Specific gravity (U) [Rel density] 1.025 [facility] Work Phone: Urobilinogen Auto test strip Ql (U)on 04-04-2021 Urobilinogen Ql (U) 1 mg/dl Normal [facility] Work Phone: Office Visit: UC: UTIon 08-0 Albumin Ql (U) trace [facility] Work Phone: Appearance Nom (U) clear [facility] Work Phone: Bilirubin Ql (U) Negative [facility] Work Phone: Color Nom (U) yellow [facility] Work Phone: Fall risk assessment No [facility] Work Phone: Glucose Test strip mass conc (U) Negative [facility] Work Phone: Ketones mass conc (U) Negative [facility] Work Phone: Leukocyte esterase Test strip Ql (U) 2+ [facility] Work Phone: Nitrite Ql (U) Negative [facility] Work Phone: pH (U) 5.0 [pH] [facility] Work Phone: Protein mass conc Done [facility] Work Phone: Specific gravity Refractometry Relative Density (U) 1.030 [facility] Work Phone: Tobacco smoking status NHIS Never [facility] Work Phone: Tobacco smoking status NHIS Former smoker [facility] Work Phone: Urobilinogen Test strip Ql (U) Negative [facility] Work Phone: Office Visit: UC: UTI?on Fall risk assessment No [facility] Work Phone: Protein mass conc Done [facility] Work Phone: Tobacco smoking status NHIS Former smoker [facility] Work Phone: Tobacco smoking status NHIS Never [facility] Work Phone: Office Visit: COPD and OSAon 09-20-2016 Dietary management education, guidance, and counseling (procedure) yes Invalid Interpretation Code [facility] Work Phone: Documentation of current medications (procedure) Done Invalid Interpretation Code [facility] Work Phone: Protein mass conc Done [facility] Work Phone: Tobacco smoking status NHIS Never Invalid Interpretation Code [facility] Work Phone: Tobacco smoking status NHIS Former smoker [facility] Work Phone: [phone] Tobacco use [facility] Former smoker Invalid Interpretation Code [facility] Work Phone: 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 Left ventricular Ejection fraction 60 % [facility] Work Phone: Office Visit: OSAon 02-03-20 16 Protein mass conc Done [facility] Work Phone: [phone] Tobacco smoking status RIIS Never [facility] Work Phone: [phone] Tobacco smoking status [facility] Former smoker [facility] Work Phone: [phone] Replaced Document: Susan BATISTA Observationson 12-30-2015 EKG QRS axis 58 deg [facility] Work Phone: electrocardiogram interpretation Sinus Rhythm WITHIN NORMAL LIMITS Invalid Interpretation Code [facility] Work Phone: [phone] GE use only - for [employer] import when terms are not otherwise specified 405 ms Invalid Interpretation Code [facility] Work Phone: Interpretation Sinus Rhythm WITHIN NORMAL LIMITS [facility] Work Phone: [phone] P [place] 64 deg [facility] Work Phone: [phone] P wave axis, electrocardiogram 64 deg Invalid Interpretation Code [facility] Work Phone: [phone] CT Interval 132 ms [facility] Work Phone: [phone] CT interval, electrocardiogram 132 ms Invalid Interpretation Code [facility] Work Phone: [phone] Pulse (Heart Rate) 62 /min Invalid Interpretation Code [facility] Work Phone: [phone] QRS axis, electrocardiogram 58 deg Invalid Interpretation Code [facility] Work Phone: [phone] QRS Duration 87 ms [facility] Work Phone: [phone] QRS duration, electrocardiogram 87 ms Invalid Interpretation Code [facility] Work Phone: [phone] QT Interval new path ms [facility] Work Phone: [phone] QT interval, electrocardiogram new path ms Invalid Interpretation Code [facility] Work Phone: [phone] QTc Dennis 405 ms [facility] Work Phone: [phone] T [place] 37 deg [facility] Work Phone: T wave axis, electrocardiogram 37 deg Invalid Interpretation Code [facility] Work Phone: Clinical 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 11-18-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 ALT enzyme act/vol 18 U/L [facility] Work Phone: [phone] AST enzyme act/vol 11 U/L [facility] Work Phone: [phone] Bilirubin mass conc 0.30 mg/dL [facility] Work Phone: [phone] Calcium mass conc 9.0 mg/dL [facility] Work Phone: [phone] Chloride molar conc 108 mmol/L [facility] Work Phone: [phone] Cholesterol in HDL mass conc 71 mg/dL [facility] Work Phone: [phone] Cholesterol in LDL mass conc 174 mg/dL [facility] Work Phone: [phone] Cholesterol mass conc 266 mg/dL [facility] Work Phone: [phone] CO2 24.0 mmol/L Invalid Interpretation Code [facility] Work Phone: [phone] CO2 ppres (BldV) 24.0 mmol/L [facility] Work Phone: [phone] Creatinine mass conc 0.77 mg/dL [facility] Work Phone: [phone] Glucose 122 mg/dL Invalid Interpretation Code [facility] Work Phone: [phone] Glucose mass conc 122 mg/dL [facility] Work Phone: [phone] Hematocrit (HCT) 40.2 % Invalid Interpretation Code [facility] Work Phone: [phone] Hematocrit Volume Fraction (Bld) 40.2 % [facility] Work Phone: [phone] Hemoglobin mass conc (Bld) 13.6 g/dL [facility] Work Phone: [phone] Platelets 382 10*3/mm3 Invalid Interpretation Code [facility] Work Phone: [phone] Platelets #/vol (Bld) 382 10*3/mm3 [facility] Work Phone: [phone] Potassium molar conc 3.8 mmol/L [facility] Work Phone: [phone] Protein mass conc 7.4 g/dL [facility] Work Phone: [phone] Sodium molar conc 139 mmol/L [facility] Work Phone: [phone] Thyrotropin Qn 1.51 u[iU]/mL [facility] Work Phone: [phone] Triglyceride mass conc 104 mg/dL [facility] Work Phone: [phone] Urea nitrogen/Creatinine mass ratio 11.7 mg/mg [facility] Work Phone: [phone] WBC #/vol (Bld) 7.8 10*3/uL [facility] Work Phone: [phone] WBC (Leukocytes) 7.8 10*3/uL Invalid Interpretation Code [facility] Work Phone: [phone] Culture, urine Bacteria identified Cx Nom (U) Klebsiella pneumoniae sp pneum [facility] Work Phone: Vital Signs Date Time Vital Sign Value Performing Clinician Facility 09-10-2024 14:39-0400 Body height 160.[address] Naomi Whyte DO Work Phone: [facility] 09-10-2024 14:39-0400 Body mass index (BMI) [Ratio] 36.6 kg/m2 Dr. Naomi Whyte DO Work Phone: [facility] 09-10-2024 14:39-0400 Body temperature 96.8 [degF] Dr. Naomi Whyte DO Work Phone: [facility] 09-10-2024 14:39-0400 Body weight 93.[address] Naomi Whyte DO Work Phone: [facility] 09-10-2024 14:39-0400 Diastolic blood pressure 61 mm[Hg] Dr. Naomi Whyte DO Work Phone: [facility] 09-10-2024 14:39-0400 Heart rate 66 /min Dr. Naomi Whyte DO Work Phone: [facility] 09-10-2024 14:39-0400 Respiratory rate 16 /min Dr. Naomi Whyte DO Work Phone: [facility] 09-10-2024 14:39-0400 SaO2% (BldA) [Mass fraction] 95 % Dr. Naomi Whyte DO Work Phone: [facility] 09-10-2024 14:39-0400 Systolic blood pressure 154 mm[Hg] Dr. Naomi Whyte DO Work Phone: [facility] 09-10-2024 08:24-0400 Body mass index (BMI) [Ratio] 36.6 kg/m2 Dr. Naomi Whyte DO Work Phone: [facility] 09-10-2024 08:24-0400 Body temperature 97.4 [degF] Dr. Naomi Whyte DO Work Phone: [facility] 09-10-2024 08:24-0400 Body weight 93.[address] Naomi Whyte DO Work Phone: [facility] 09-10-2024 08:24-0400 Diastolic blood pressure 81 mm[Hg] Dr. Naomi Whyte DO Work Phone: [facility] 09-10-2024 08:24-0400 Heart rate 86 /min Dr. Naomi Whyte DO Work Phone: [facility] 09-10-2024 08:24-0400 Respiratory rate 20 /min Dr. Naomi Whyte DO Work Phone: [facility] 09-10-2024 08:24-0400 SaO2% (BldA) [Mass fraction] 95 % Dr. Naomi Whyte DO Work Phone: [facility] 09-10-2024 08:24-0400 Systolic blood pressure 128 mm[Hg] Dr. Naomi Whyte DO Work Phone: [facility] 07-04-2024 11:36-0400 Body height 160.[address] Naomi Whyte DO Work Phone: [facility] 07-04-2024 11:36-0400 Body mass index (BMI) [Ratio] 36.1 kg/m2 Dr. Naomi Whyte DO Work Phone: [facility] 07-04-2024 11:36-0400 Body temperature 96.5 [degF] Dr. Naomi Whyte DO Work Phone: [facility] 07-04-2024 11:36-0400 Body weight 92.[address] Naomi Whyte DO Work Phone: [facility] 07-04-2024 11:36-0400 Diastolic blood pressure 68 mm[Hg] Dr. Naomi Whyte DO Work Phone: [facility] 07-04-2024 11:36-0400 Heart rate 77 /min Dr. Naomi Whyte DO Work Phone: [facility] 07-04-2024 11:36-0400 Respiratory rate 16 /min Dr. Naomi Whyte DO Work Phone: [facility] 07-04-2024 11:36-0400 SaO2% (BldA) [Mass fraction] 94 % Dr. Naomi Whyte DO Work Phone: [facility] 07-04-2024 11:36-0400 Systolic blood pressure 110 mm[Hg] Dr. Naomi Whyte DO Work Phone: [facility] 04-25-2024 12:27-0500 Body mass index (BMI) [Ratio] 35.4 kg/m2 Dr. Naomi Whyet DO Work Phone: [facility] 04-25-2024 12:27-0500 Body temperature 97.8 [degF] Dr. Naomi Whyte DO Work Phone: [facility] 04-25-2024 12:27-0500 Body weight 90.[address] Naomi Whyte DO Work Phone: [facility] 04-25-2024 12:27-0500 Diastolic blood pressure 75 mm[Hg] Dr. Naomi Whyte DO Work Phone: [facility] 04-25-2024 12:27-0500 Heart rate 93 /min Dr. Naomi Whyte DO Work Phone: [facility] 04-25-2024 12:27-0500 Respiratory rate 18 /min Dr. Naomi Whyte DO Work Phone: [facility] 04-25-2024 12:27-0500 SaO2% (BldA) [Mass fraction] 98 % Dr. Naomi Whyte DO Work Phone: [facility] 04-25-2024 12:27-0500 Systolic blood pressure 141 mm[Hg] Dr. Naomi Whyte DO Work Phone: [facility] 03-21-2024 12:13-0500 Body temperature 97.2 [degF] Dr. Naomi Whyte DO Work Phone: [facility] 03-21-2024 12:13-0500 Diastolic blood pressure 80 mm[Hg] Dr. Naomi Whyte DO Work Phone: [facility] 03-21-2024 12:13-0500 Heart rate 89 /min Dr. Naomi Whyte DO Work Phone: [facility] 03-21-2024 12:13-0500 Respiratory rate 16 /min Dr. Naomi Whyte DO Work Phone: [facility] 03-21-2024 12:13-0500 SaO2% (BldA) [Mass fraction] 98 % Dr. Naomi Whyte DO Work Phone: [facility] 03-21-2024 12:13-0500 Systolic blood pressure 136 mm[Hg] Dr. Naomi Whyte DO Work Phone: [facility] 03-12-2024 07:42-0500 Body mass index (BMI) [Ratio] 35.4 kg/m2 Dr. Naomi Whyte DO Work Phone: [facility] 03-12-2024 07:42-0500 Body temperature 95.3 [degF] Dr. Naomi Whyte DO Work Phone: [facility] 03-12-2024 07:42-0500 Body weight 90.[address] Naomi Whyte DO Work Phone: [facility] 03-12-2024 07:42-0500 Diastolic blood pressure 80 mm[Hg] Dr. Naomi Whyte DO Work Phone: [facility] 03-12-2024 07:42-0500 Heart rate 72 /min Dr. Naomi Whyte DO Work Phone: [facility] 03-12-2024 07:42-0500 Respiratory rate 20 /min Dr. Naomi Whyte DO Work Phone: [facility] 03-12-2024 07:42-0500 SaO2% (BldA) [Mass fraction] 97 % Dr. Naomi Whyte DO Work Phone: [facility] 03-12-2024 07:42-0500 Systolic blood pressure 127 mm[Hg] Dr. Naomi Whyte DO Work Phone: [facility] 08-15-2023 13:38-0400 Body height 160.[address] Kamilah Patel Work Phone: [facility] 08-15-2023 13:38-0400 Body temperature 97.4 [degF] Dr. Kamilah Patel Work Phone: [facility] 08-15-2023 13:38-0400 Diastolic blood pressure 68 mm[Hg] Dr. Kamilah Patel Work Phone: [facility] 08-15-2023 13:38-0400 Heart rate 89 /min Dr. Kamilah Patel Work Phone: [facility] 08-15-2023 13:38-0400 Respiratory rate 16 /min Dr. Kamilah Patel Work Phone: [facility] 08-15-2023 13:38-0400 SaO2% (BldA) [Mass fraction] 96 % Dr. Kamilah Patel Work Phone: [facility] 08-15-2023 13:38-0400 Systolic blood pressure 113 mm[Hg] Dr. Kamilah Patel Work Phone: [facility] 08-02-2023 07:57-0400 Body mass index (BMI) [Ratio] 33.8 kg/m2 Dr. Kamilah Patel Work Phone: [facility] 08-02-2023 07:57-0400 Body temperature 98.4 [degF] Dr. Kamilah Patel Work Phone: [facility] 08-02-2023 07:57-0400 Body weight 86.[address] Kamilah Patel Work Phone: [facility] 08-02-2023 07:57-0400 Diastolic blood pressure 74 mm[Hg] Dr. Kamilah Patel Work Phone: [facility] 08-02-2023 07:57-0400 Heart rate 75 /min Dr. Kamilah Patel Work Phone: [facility] 08-02-2023 07:57-0400 SaO2% (BldA) [Mass fraction] 95 % Dr. Kamilah Patel Work Phone: [facility] 08-02-2023 07:57-0400 Systolic blood pressure 113 mm[Hg] Dr. Kamilah Patel Work Phone: [facility] 06-15-2023 12:37-0500 Body height 160.[address] Kamilah Patel Work Phone: [facility] 06-15-2023 12:37-0500 Body mass index (BMI) [Ratio] 33.6 kg/m2 Dr. Kamilah Patel Work Phone: [facility] 06-15-2023 12:37-0500 Body temperature 97 [degF] Dr. Kamilah Patel Work Phone: [facility] 06-15-2023 12:37-0500 Body weight 86.[address] Kamilah Patel Work Phone: [facility] 06-15-2023 12:37-0500 Diastolic blood pressure 65 mm[Hg] Dr. Kamilah Patel Work Phone: [facility] 06-15-2023 12:37-0500 Heart rate 77 /min Dr. Kamilah Patel Work Phone: [facility] 06-15-2023 12:37-0500 Respiratory rate 14 /min Dr. Kamilah Patel Work Phone: [facility] 06-15-2023 12:37-0500 SaO2% (BldA) [Mass fraction] 96 % Dr. Kamilah Patel Work Phone: [facility] 06-15-2023 12:37-0500 Systolic blood pressure 110 mm[Hg] Dr. Kamilah Patel Work Phone: [phone] [place] [address] 05-18-2023 12:30-0500 Body height 160.[address] Kamilah Patel Work Phone: [facility] 05-18-2023 12:30-0500 Body mass index (BMI) [Ratio] 33.6 kg/m2 Dr. Kamilah Patel Work Phone: [facility] 05-18-2023 12:30-0500 Body temperature 97.6 [degF] Dr. Kamilah Patel Work Phone: [facility] 05-18-2023 12:30-0500 Body weight 86.[address] Kamilah Patel Work Phone: [facility] 05-18-2023 12:30-0500 Diastolic blood pressure 77 mm[Hg] Dr. Kamilah Patel Work Phone: [facility] 05-18-2023 12:30-0500 Heart rate 78 /min Dr. Kamilah Patel Work Phone: [facility] 05-18-2023 12:30-0500 Respiratory rate 16 /min Dr. Kamilah Patel Work Phone: [facility] 05-18-2023 12:30-0500 SaO2% (BldA) [Mass fraction] 98 % Dr. Kamilah Patel Work Phone: [facility] 05-18-2023 12:30-0500 Systolic blood pressure 124 mm[Hg] Dr. Kamilah Patel Work Phone: [facility] 05-16-2023 08:00-0500 Body mass index (BMI) [Ratio] 33.8 kg/m2 Dr. Kamilah Patel Work Phone: [facility] 05-16-2023 08:00-0500 Body temperature 98.7 [degF] Dr. Kamilah Patel Work Phone: [facility] 05-16-2023 08:00-0500 Body weight 86.[address] Kamilah Patel Work Phone: [facility] 05-16-2023 08:00-0500 Diastolic blood pressure 62 mm[Hg] Dr. Kamilah Patel Work Phone: [facility] 05-16-2023 08:00-0500 Heart rate 92 /min Dr. Kamilah Patel Work Phone: [facility] 05-16-2023 08:00-0500 Respiratory rate 16 /min Dr. Kamilah Patel Work Phone: [facility] 05-16-2023 08:00-0500 SaO2% (BldA) [Mass fraction] 96 % Dr. Kamilah Patel Work Phone: [facility] 05-16-2023 08:00-0500 Systolic blood pressure 130 mm[Hg] Dr. Kamilah Patel Work Phone: [facility] 04-20-2023 13:17-0500 Body height 160.[address] Kamilah Patel Work Phone: [facility] 04-20-2023 13:17-0500 Body mass index (BMI) [Ratio] 32.8 kg/m2 Dr. Kamilah Patel Work Phone: [facility] 04-20-2023 13:17-0500 Body temperature 97.3 [degF] Dr. Kamilah Patel Work Phone: [facility] 04-20-2023 13:17-0500 Body weight 83.[address] Kamilah Patel Work Phone: [facility] 04-20-2023 13:17-0500 Diastolic blood pressure 64 mm[Hg] Dr. Kamilah Patel Work Phone: [facility] 04-20-2023 13:17-0500 Heart rate 73 /min Dr. Kamilah Patel Work Phone: [facility] 04-20-2023 13:17-0500 Respiratory rate 16 /min Dr. Kamilah Patel Work Phone: [facility] 04-20-2023 13:17-0500 SaO2% (BldA) [Mass fraction] 96 % Dr. Kamilah Patel Work Phone: [facility] 04-20-2023 13:17-0500 Systolic blood pressure 122 mm[Hg] Dr. Kamilah Patel Work Phone: [facility] 04-20-2023 12:32-0500 Body mass index (BMI) [Ratio] 32.8 kg/m2 Dr. Kamilah Patel Work Phone: [facility] 04-20-2023 12:32-0500 Body temperature 97.3 [degF] Dr. Kamilah Patel Work Phone: [facility] 04-20-2023 12:32-0500 Body weight 83.[address] Kamilah Patel Work Phone: [facility] 04-20-2023 12:32-0500 Diastolic blood pressure 71 mm[Hg] Dr. Kamilah Patel Work Phone: [facility] 04-20-2023 12:32-0500 Heart rate 90 /min Dr. Kamilah Patel Work Phone: [facility] 04-20-2023 12:32-0500 Respiratory rate 18 /min Dr. Kamilah Patel Work Phone: [facility] 04-20-2023 12:32-0500 SaO2% (BldA) [Mass fraction] 94 % Dr. Kamilah Patel Work Phone: [facility] 04-20-2023 12:32-0500 Systolic blood pressure 117 mm[Hg] Dr. Kamilah Patel Work Phone: [facility] 02-23-2023 13:08-0500 Body height 160.[address] Kamilah Patel Work Phone: [facility] 02-23-2023 13:08-0500 Body temperature 97.6 [degF] Dr. Kamilah Patel Work Phone: [facility] 02-23-2023 13:08-0500 Diastolic blood pressure 57 mm[Hg] Dr. Kamilah Patel Work Phone: [facility] 02-23-2023 13:08-0500 Heart rate 64 /min Dr. Kamilah Patel Work Phone: [facility] 02-23-2023 13:08-0500 Respiratory rate 16 /min Dr. Kamilah Patel Work Phone: [facility] 02-23-2023 13:08-0500 SaO2% (BldA) [Mass fraction] 98 % Dr. Kamilah Patel Work Phone: [facility] 02-23-2023 13:08-0500 Systolic blood pressure 103 mm[Hg] Dr. Kamilah Patel Work Phone: [facility] 2023 11:59-0400 Body mass index (BMI) [Ratio] 32.4 kg/m2 Dr. Kamilah Patel Work Phone: [facility] 2023 11:59-0400 Body temperature 94.6 [degF] Dr. Kamilah Patel Work Phone: [facility] 2023 11:59-0400 Body weight [address] Kamilah Patel Work Phone: [facility] 2023 11:59-0400 Diastolic blood pressure 74 mm[Hg] Dr. Kamilah Patel Work Phone: [facility] 2023 11:59-0400 Heart rate 75 /min Dr. Kamilah Patel Work Phone: [facility] 2023 11:59-0400 Respiratory rate 18 /min Dr. Kamilah Patel Work Phone: [facility] 2023 11:59-0400 SaO2% (BldA) [Mass fraction] 98 % Dr. Kamilah Patel Work Phone: [facility] 2023 11:59-0400 Systolic blood pressure 114 mm[Hg] Dr. Kamilah Patel Work Phone: [facility] 01-26-2023 13:19-0400 Body height 160.02 cm [facility] 01-26-2023 13:19-0400 Body mass index (BMI) [Ratio] 32.4 kg/m2 [facility] 01-26-2023 13:19-0400 Body temperature 97 [degF] [facility] 01-26-2023 13:19-0400 Body weight 83 kg [facility] 01-26-2023 13:19-0400 Diastolic blood pressure 75 mm[Hg] [facility] 01-26-2023 13:19-0400 Heart rate 83 /min [facility] 01-26-2023 13:19-0400 Respiratory rate 18 /min [facility] 01-26-2023 13:19-0400 SaO2% (BldA) [Mass fraction] 93 % [facility] 01-26-2023 13:19-0400 Systolic blood pressure 120 mm[Hg] [facility] 12-29-2022 13:09-0400 Body height 160.02 cm [facility] 12-29-2022 13:09-0400 Body temperature 96.8 [degF] [facility] 12-29-2022 13:09-0400 Diastolic blood pressure 57 mm[Hg] [facility] 12-29-2022 13:09-0400 Heart rate 75 /min [facility] 12-29-2022 13:09-0400 Respiratory rate 16 /min [facility] 12-29-2022 13:09-0400 SaO2% (BldA) [Mass fraction] 95 % [facility] 12-29-2022 13:09-0400 Systolic blood pressure 110 mm[Hg] [facility] 12-15-2022 09:38-0400 Diastolic blood pressure 70 mm[Hg] [facility] 12-15-2022 09:38-0400 Heart rate 99 /min [facility] 12-15-2022 09:38-0400 Respiratory rate 20 /min [facility] 12-15-2022 09:38-0400 SaO2% (BldA) [Mass fraction] 99 % [facility] 12-15-2022 09:38-0400 Systolic blood pressure 119 mm[Hg] [facility] 12-15-2022 07:23-0400 Body temperature 98 [degF] [facility] 12-15-2022 07:11-0400 Body height 160.02 cm [facility] 12-15-2022 07:11-0400 Body mass index (BMI) [Ratio] 33.6 kg/m2 [facility] 12-15-2022 07:11-0400 Body weight 86.09 kg [facility] 12-01-2022 13:54-0400 Body height 160.02 cm [facility] 12-01-2022 13:54-0400 Body mass index (BMI) [Ratio] 33.1 kg/m2 [facility] 12-01-2022 13:54-0400 Body temperature 96.7 [degF] [facility] 12-01-2022 13:54-0400 Body weight 84.82 kg [facility] 12-01-2022 13:54-0400 Diastolic blood pressure 53 mm[Hg] [facility] 12-01-2022 13:54-0400 Heart rate 76 /min [facility] 12-01-2022 13:54-0400 Respiratory rate 16 /min [facility] 12-01-2022 13:54-0400 SaO2% (BldA) [Mass fraction] 92 % [facility] 12-01-2022 13:54-0400 Systolic blood pressure 100 mm[Hg] [facility] 11-02-2022 15:11-0400 Body mass index (BMI) [Ratio] 32.8 kg/m2 [facility] 11-02-2022 15:11-0400 Body temperature 96.2 [degF] [facility] 11-02-2022 15:11-0400 Body weight 83.91 kg [facility] 11-02-2022 15:11-0400 Diastolic blood pressure 70 mm[Hg] [facility] 11-02-2022 15:11-0400 Heart rate 84 /min [facility] 11-02-2022 15:11-0400 Respiratory rate 18 /min [facility] 11-02-2022 15:11-0400 SaO2% (BldA) [Mass fraction] 95 % [facility] 11-02-2022 15:11-0400 Systolic blood pressure 113 mm[Hg] [facility] 09-28-2022 12:57-0400 Body height 160.[address] Kamilah Patel Work Phone: [facility] 09-28-2022 12:57-0400 Body temperature 97.1 [degF] Dr. Kamilah Patel Work Phone: [facility] 09-28-2022 12:57-0400 Diastolic blood pressure 63 mm[Hg] Dr. Kamilah Patel Work Phone: [facility] 09-28-2022 12:57-0400 Heart rate 64 /min Dr. Kamilah Patel Work Phone: [facility] 09-28-2022 12:57-0400 Respiratory rate 16 /min Dr. Kamilah Patel Work Phone: [facility] 09-28-2022 12:57-0400 SaO2% (BldA) [Mass fraction] 97 % Dr. Kamilah Patel Work Phone: [facility] 09-28-2022 12:57-0400 Systolic blood pressure 117 mm[Hg] Dr. Kamilah Patel Work Phone: [facility] 08-24-2022 13:57-0400 Body mass index (BMI) [Ratio] 31.5 kg/m2 Dr. Kamilah Patel Work Phone: [facility] 08-24-2022 13:57-0400 Body temperature 97.8 [degF] Dr. Kamilah Patel Work Phone: [facility] 08-24-2022 13:57-0400 Body weight 80.[address] Kamilah Patel Work Phone: [facility] 08-24-2022 13:57-0400 Diastolic blood pressure 62 mm[Hg] Dr. Kamilah Patel Work Phone: [facility] 08-24-2022 13:57-0400 Heart rate 68 /min Dr. Kamilah Ptael Work Phone: [facility] 08-24-2022 13:57-0400 Respiratory rate 16 /min Dr. Kamilah Patel Work Phone: [facility] 08-24-2022 13:57-0400 SaO2% (BldA) [Mass fraction] 98 % Dr. Kamilah Patel Work Phone: [facility] 08-24-2022 13:57-0400 Systolic blood pressure 112 mm[Hg] Dr. Kamilah Patel Work Phone: [facility] 08-01-2022 07:46-0400 Body mass index (BMI) [Ratio] 31.5 kg/m2 Dr. Kamilah Patel Work Phone: [facility] 08-01-2022 07:46-0400 Body temperature 98.1 [degF] Dr. Kamilah Patel Work Phone: [facility] 08-01-2022 07:46-0400 Body weight 80.[address] Kamilah Patel Work Phone: [facility] 08-01-2022 07:46-0400 Diastolic blood pressure 70 mm[Hg] Dr. Kamilah Patel Work Phone: [facility] 08-01-2022 07:46-0400 Heart rate 77 /min Dr. Kamilah Patel Work Phone: [facility] 08-01-2022 07:46-0400 Respiratory rate 18 /min Dr. Kamilah Patel Work Phone: [facility] 08-01-2022 07:46-0400 SaO2% (BldA) [Mass fraction] 95 % Dr. Kamilah Patel Work Phone: [facility] 08-01-2022 07:46-0400 Systolic blood pressure 103 mm[Hg] Dr. Kamilah Patel Work Phone: [facility] 07-27-2022 14:19-0400 Body height 160.02 cm [facility] 07-27-2022 14:19-0400 Body temperature 97 [degF] [facility] 07-27-2022 14:19-0400 Diastolic blood pressure 67 mm[Hg] [facility] 07-27-2022 14:19-0400 Heart rate 90 /min [facility] 07-27-2022 14:19-0400 Respiratory rate 16 /min [facility] 07-27-2022 14:19-0400 SaO2% (BldA) [Mass fraction] 94 % [facility] 07-27-2022 14:19-0400 Systolic blood pressure 94 mm[Hg] [facility] 06-22-2022 13:05-0400 Body height 160.02 cm [facility] 06-22-2022 13:05-0400 Body mass index (BMI) [Ratio] 31.3 kg/m2 [facility] 06-22-2022 13:05-0400 Body weight 80.28 kg [facility] 06-22-2022 13:05-0400 Diastolic blood pressure 66 mm[Hg] [facility] 06-22-2022 13:05-0400 Heart rate 72 /min [facility] 06-22-2022 13:05-0400 Respiratory rate 16 /min [facility] 06-22-2022 13:05-0400 SaO2% (BldA) [Mass fraction] 100 % [facility] 06-22-2022 13:05-0400 Systolic blood pressure 101 mm[Hg] [facility] 05-25-2022 13:17-0500 Body height 160.[address] Kamilah Patel Work Phone: [facility] 05-25-2022 13:17-0500 Body mass index (BMI) [Ratio] 31.3 kg/m2 Dr. Kamilah Patel Work Phone: [facility] 05-25-2022 13:17-0500 Body temperature 97.5 [degF] Dr. Kamilah Patel Work Phone: [facility] 05-25-2022 13:17-0500 Body weight 80.[address] Kamilah Patel Work Phone: [facility] 05-25-2022 13:17-0500 Diastolic blood pressure 62 mm[Hg] Dr. Kamilah Patel Work Phone: [facility] 05-25-2022 13:17-0500 Heart rate 91 /min Dr. Kamilah Patel Work Phone: [facility] 05-25-2022 13:17-0500 Respiratory rate 18 /min Dr. Kamilah Patel Work Phone: [facility] 05-25-2022 13:17-0500 SaO2% (BldA) [Mass fraction] 94 % Dr. Kamilah Patel Work Phone: [facility] 05-25-2022 13:17-0500 Systolic blood pressure 97 mm[Hg] Dr. Kamilah Patel Work Phone: [facility] 04-27-2022 12:43-0500 Body mass index (BMI) [Ratio] 31.8 kg/m2 Dr. Kamilah Patel Work Phone: [facility] 04-27-2022 12:43-0500 Body temperature 97.5 [degF] Dr. Kamilah Patel Work Phone: [facility] 04-27-2022 12:43-0500 Body weight 81.[address] Kamilah Patel Work Phone: [facility] 04-27-2022 12:43-0500 Diastolic blood pressure 69 mm[Hg] Dr. Kamilah Patel Work Phone: [facility] 04-27-2022 12:43-0500 Heart rate 82 /min Dr. Kamilah Patel Work Phone: [facility] 04-27-2022 12:43-0500 Respiratory rate 16 /min Dr. Kamilah Patel Work Phone: [facility] 04-27-2022 12:43-0500 SaO2% (BldA) [Mass fraction] 93 % Dr. Kamilah Patel Work Phone: [facility] 04-27-2022 12:43-0500 Systolic blood pressure 125 mm[Hg] Dr. Kamilah Patel Work Phone: [facility] 03-21-2022 14:02-0500 Diastolic blood pressure 74 mm[Hg] Dr. Kamilah Patel Work Phone: [facility] 03-21-2022 14:02-0500 Heart rate 71 /min Dr. Kamilah Patel Work Phone: [facility] 03-21-2022 14:02-0500 SaO2% (BldA) [Mass fraction] 93 % Dr. Kamilah Patel Work Phone: [facility] 03-21-2022 14:02-0500 Systolic blood pressure 135 mm[Hg] Dr. Kamilah Patel Work Phone: [facility] 02-08-2022 14:23-0400 Diastolic blood pressure 64 mm[Hg] Dr. Kamilah Patel Work Phone: [facility] 02-08-2022 14:23-0400 Systolic blood pressure 108 mm[Hg] Dr. Kamilah Patel Work Phone: [facility] 02-08-2022 13:15-0400 Body temperature 98 [degF] Dr. Kamilah Patel Work Phone: [facility] 02-08-2022 13:15-0400 Heart rate 71 /min Dr. Kamilah Patel Work Phone: [facility] 02-08-2022 13:15-0400 Respiratory rate 14 /min Dr. Kamilah Patel Work Phone: [facility] 02-08-2022 13:15-0400 SaO2% (BldA) [Mass fraction] 96 % Dr. Kamilah Patel Work Phone: [facility] 01-30-2022 08:06-0400 Body height 160.[address] Kamilah Patel Work Phone: [facility] Work Phone: 01-30-2022 08:06-0400 Body mass index (BMI) [Ratio] 33.3 kg/m2 Dr. Kamilah Patel Work Phone: [facility] Work Phone: 01-30-2022 08:06-0400 Body temperature 98 [degF] Dr. Kamilah Patel Work Phone: [facility] Work Phone: 01-30-2022 08:06-0400 Body weight 85.[address] Kamilah Patel Work Phone: [facility] Work Phone: 01-30-2022 08:06-0400 Diastolic blood pressure 78 mm[Hg] Dr. Kamilah Patel Work Phone: [facility] Work Phone: 01-30-2022 08:06-0400 Heart rate 71 /min Dr. Kamilah Patel Work Phone: [facility] Work Phone: 01-30-2022 08:06-0400 Respiratory rate 16 /min Dr. Kamilah Patel Work Phone: [facility] Work Phone: 01-30-2022 08:06-0400 SaO2% (BldA) [Mass fraction] 94 % Dr. Kamilah Patel Work Phone: [facility] Work Phone: 01-30-2022 08:06-0400 Systolic blood pressure 132 mm[Hg] Dr. Kamilah Patel Work Phone: [facility] Work Phone: 01-24-2022 13:49-0400 Body height 160.[address] Kamilah Patel Work Phone: [facility] Work Phone: 01-24-2022 13:49-0400 Body mass index (BMI) [Ratio] 32.8 kg/m2 Dr. Kamilah Patel Work Phone: [facility] Work Phone: 01-24-2022 13:49-0400 Body temperature 97.8 [degF] Dr. Kamilah Patel Work Phone: [facility] Work Phone: 01-24-2022 13:49-0400 Body weight 83.[address] Kamilah Patel Work Phone: [facility] Work Phone: 01-24-2022 13:49-0400 Diastolic blood pressure 62 mm[Hg] Dr. Kamilah Patel Work Phone: [facility] Work Phone: 01-24-2022 13:49-0400 Heart rate 76 /min Dr. Kamilah Patel Work Phone: [facility] Work Phone: 01-24-2022 13:49-0400 Respiratory rate 16 /min Dr. Kamilah Patel Work Phone: [facility] Work Phone: 01-24-2022 13:49-0400 SaO2% (BldA) [Mass fraction] 97 % Dr. Kamilah Patel Work Phone: [facility] Work Phone: 01-24-2022 13:49-0400 Systolic blood pressure 117 mm[Hg] Dr. Kamilah Patel Work Phone: [facility] Work Phone: 12-27-2021 14:25-0400 Body temperature 98 [degF] Dr. Kamilah Patel Work Phone: [facility] Work Phone: 12-27-2021 14:25-0400 Diastolic blood pressure 74 mm[Hg] Dr. Kamilah Patel Work Phone: [facility] Work Phone: 12-27-2021 14:25-0400 Heart rate 84 /min Dr. Kamilah Patel Work Phone: [facility] Work Phone: 12-27-2021 14:25-0400 SaO2% (BldA) [Mass fraction] 93 % Dr. Kamilah Patel Work Phone: [facility] Work Phone: 12-27-2021 14:25-0400 Systolic blood pressure 113 mm[Hg] Dr. Kamilah Patel Work Phone: [facility] Work Phone: 11-23-2021 13:04-0400 Body height 160.[address] Kamilah Patel Work Phone: [facility] Work Phone: 11-23-2021 13:04-0400 Body mass index (BMI) [Ratio] 34 kg/m2 Dr. Kamilah Patel Work Phone: [facility] Work Phone: 11-23-2021 13:04-0400 Body temperature 97.5 [degF] Dr. Kamilah Patel Work Phone: [facility] Work Phone: 11-23-2021 13:04-0400 Body weight 87.[address] Kamilah Patel Work Phone: [facility] Work Phone: 11-23-2021 13:04-0400 Diastolic blood pressure 62 mm[Hg] Dr. Kamilah Patel Work Phone: [facility] Work Phone: 11-23-2021 13:04-0400 Heart rate 60 /min Dr. Kamilah Patel Work Phone: [facility] Work Phone: 11-23-2021 13:04-0400 Respiratory rate 16 /min Dr. Kamilah Patel Work Phone: [facility] Work Phone: 11-23-2021 13:04-0400 SaO2% (BldA) [Mass fraction] 96 % Dr. Kamilah Patel Work Phone: [facility] Work Phone: 11-23-2021 13:04-0400 Systolic blood pressure 119 mm[Hg] Dr. Kamilah Patel Work Phone: [facility] Work Phone: 11-09-2021 14:53-0400 Body temperature 97.9 [degF] Dr. Kamilah Patel Work Phone: [facility] Work Phone: 11-09-2021 14:53-0400 Diastolic blood pressure 74 mm[Hg] Dr. Kamilah Patel Work Phone: [facility] Work Phone: 11-09-2021 14:53-0400 Heart rate 90 /min Dr. Kamilah Patel Work Phone: [facility] Work Phone: 11-09-2021 14:53-0400 Respiratory rate 16 /min Dr. Kamilah Patel Work Phone: [facility] Work Phone: 11-09-2021 14:53-0400 SaO2% (BldA) [Mass fraction] 96 % Dr. Kamilah Patel Work Phone: [facility] Work Phone: 11-09-2021 14:53-0400 Systolic blood pressure 116 mm[Hg] Dr. Kamilah Patel Work Phone: [facility] Work Phone: 10-21-2021 08:56-0400 Body temperature 96.5 [degF] Dr. Kamilah Patel Work Phone: [facility] Work Phone: 10-21-2021 08:56-0400 Diastolic blood pressure 70 mm[Hg] Dr. Kamilah Patel Work Phone: [facility] Work Phone: 10-21-2021 08:56-0400 Heart rate 67 /min Dr. Kamilah Patel Work Phone: [facility] Work Phone: 10-21-2021 08:56-0400 SaO2% (BldA) [Mass fraction] 96 % Dr. Kamilah Patel Work Phone: [facility] Work Phone: 10-21-2021 08:56-0400 Systolic blood pressure 137 mm[Hg] Dr. Kamilah Patel Work Phone: [facility] Work Phone: 09-02-2021 13:53-0400 Body height 160.[address] Kamilah Patel Work Phone: [facility] Work Phone: 09-02-2021 13:53-0400 Body temperature 97.4 [degF] Dr. Kamilah Patel Work Phone: [facility] Work Phone: 09-02-2021 13:53-0400 Diastolic blood pressure 62 mm[Hg] Dr. Kamilah Patel Work Phone: [facility] Work Phone: 09-02-2021 13:53-0400 Heart rate 79 /min Dr. Kamilah Patel Work Phone: [facility] Work Phone: 09-02-2021 13:53-0400 Respiratory rate 16 /min Dr. Kamilah Patel Work Phone: [facility] Work Phone: 09-02-2021 13:53-0400 SaO2% (BldA) [Mass fraction] 94 % Dr. Kamilah Patel Work Phone: [facility] Work Phone: 09-02-2021 13:53-0400 Systolic blood pressure 106 mm[Hg] Dr. Kamilah Patel Work Phone: [facility] Work Phone: 08-05-2021 13:27-0400 Body height 160.[address] Kamilah Patel Work Phone: [facility] Work Phone: 08-05-2021 13:27-0400 Body temperature 96.9 [degF] Dr. Kamilah Patel Work Phone: [facility] Work Phone: 08-05-2021 13:27-0400 Diastolic blood pressure 63 mm[Hg] Dr. Kamilah Patel Work Phone: [facility] Work Phone: 08-05-2021 13:27-0400 Heart rate 84 /min Dr. Kamilah Patel Work Phone: [facility] Work Phone: 08-05-2021 13:27-0400 Respiratory rate 20 /min Dr. Kamilah Patel Work Phone: [facility] Work Phone: 08-05-2021 13:27-0400 SaO2% (BldA) [Mass fraction] 95 % Dr. Kamilah Patel Work Phone: [facility] Work Phone: 08-05-2021 13:27-0400 Systolic blood pressure 110 mm[Hg] Dr. Kamilah Patel Work Phone: [facility] Work Phone: 07-07-2021 10:02-0400 Body height 160.[address] Kamilah Patel Work Phone: [facility] Work Phone: 07-07-2021 10:02-0400 Body mass index (BMI) [Ratio] 33.6 kg/m2 Dr. Kamilah Patel Work Phone: [facility] [facility] Work Phone: 07-07-2021 10:02-0400 Body temperature 97.5 [degF] Dr. Kamilah Patel Work Phone: [facility] Work Phone: 07-07-2021 10:02-0400 Body weight 86.[address] Kamilah Patel Work Phone: [facility] Work Phone: 07-07-2021 10:02-0400 Diastolic blood pressure 82 mm[Hg] Dr. Kamilah Patel Work Phone: [facility] Work Phone: 07-07-2021 10:02-0400 Heart rate 77 /min Dr. Kamilah Patel Work Phone: [facility] Work Phone: 07-07-2021 10:02-0400 Respiratory rate 19 /min Dr. Kamilah Patel Work Phone: [facility] Work Phone: 07-07-2021 10:02-0400 SaO2% (BldA) [Mass fraction] 92 % Dr. Kamilah Patel Work Phone: [facility] Work Phone: 07-07-2021 10:02-0400 Systolic blood pressure 128 mm[Hg] Dr. Kamilah Patel Work Phone: [facility] Work Phone: 05-20-2021 10:07-0500 Body temperature 97.2 [degF] Dr. Kamilah Patel Work Phone: [facility] Work Phone: 05-20-2021 10:07-0500 Diastolic blood pressure 70 mm[Hg] Dr. Kamilah Patel Work Phone: [facility] Work Phone: 05-20-2021 10:07-0500 Heart rate 91 /min Dr. Kamilah Patel Work Phone: [facility] Work Phone: 05-20-2021 10:07-0500 Respiratory rate 16 /min Dr. Kamilah Patel Work Phone: [facility] Work Phone: 05-20-2021 10:07-0500 SaO2% (BldA) [Mass fraction] 96 % Dr. Kamilah Patel Work Phone: [facility] Work Phone: 05-20-2021 10:07-0500 Systolic blood pressure 118 mm[Hg] Dr. Kamilah Patel Work Phone: [facility] Work Phone: 04-18-2021 05:33-0500 Body temperature 97.5 [degF] Dr. Kamilah Patel Work Phone: [facility] Work Phone: 04-18-2021 05:33-0500 Diastolic blood pressure 68 mm[Hg] Dr. Kamilah Patel Work Phone: [facility] Work Phone: 04-18-2021 05:33-0500 Heart rate 68 /min Dr. Kamilah Patel Work Phone: [facility] Work Phone: 04-18-2021 05:33-0500 Respiratory rate 18 /min Dr. Kamilah Patel Work Phone: [facility] Work Phone: 04-18-2021 05:33-0500 SaO2% (BldA) [Mass fraction] 97 % Dr. Kamilah Patel Work Phone: [facility] Work Phone: 04-18-2021 05:33-0500 Systolic blood pressure 114 mm[Hg] Dr. Kamilah Patel Work Phone: [facility] Work Phone: 04-06-2021 15:50-0500 Body temperature 97.1 [degF] Dr. Kamilah Patel Work Phone: [facility] Work Phone: 04-06-2021 15:50-0500 Diastolic blood pressure 76 mm[Hg] Dr. Kaimlah Patel Work Phone: [facility] Work Phone: 04-06-2021 15:50-0500 Heart rate 69 /min Dr. Kamilah Patel Work Phone: [facility] Work Phone: 04-06-2021 15:50-0500 Respiratory rate 18 /min Dr. Kamilah Patel Work Phone: [facility] Work Phone: 04-06-2021 15:50-0500 SaO2% (BldA) [Mass fraction] 93 % Dr. Kamilah Patel Work Phone: [facility] Work Phone: 04-06-2021 15:50-0500 Systolic blood pressure 108 mm[Hg] Dr. Kamilah Patel Work Phone: [facility] Work Phone: 04-04-2021 21:01-0500 Body mass index (BMI) [Ratio] 35.2 kg/m2 Dr. Kamilah Patel Work Phone: [facility] Work Phone: 04-04-2021 21:01-0500 Body temperature 97.6 [degF] Dr. Kamilah Patel Work Phone: [facility] Work Phone: 04-04-2021 21:01-0500 Body weight 90.[address] Kamilah Patel Work Phone: [facility] Work Phone: 04-04-2021 21:01-0500 Diastolic blood pressure 73 mm[Hg] Dr. Kamilah Patel Work Phone: [facility] Work Phone: 04-04-2021 21:01-0500 Heart rate 100 /min Dr. Kamilah Patel Work Phone: [facility] Work Phone: 04-04-2021 21:01-0500 Respiratory rate 20 /min Dr. Kamilah Patel Work Phone: [facility] Work Phone: 04-04-2021 21:01-0500 SaO2% (BldA) [Mass fraction] 93 % Dr. Kamilah Patel Work Phone: [facility] Work Phone: 04-04-2021 21:01-0500 Systolic blood pressure 125 mm[Hg] Dr. Kamilah Patel Work Phone: [facility] Work Phone: 03-11-2021 12:47-0500 Body mass index (BMI) [Ratio] 35 kg/m2 Dr. Kamilah Patel Work Phone: [facility] Work Phone: 03-11-2021 12:47-0500 Body temperature 96.6 [degF] Dr. Kamilah Patel Work Phone: [facility] Work Phone: 03-11-2021 12:47-0500 Body weight 89.[address] Kamilah Patel Work Phone: [facility] Work Phone: 03-11-2021 12:47-0500 Diastolic blood pressure 66 mm[Hg] Dr. Kamilah Patel Work Phone: [facility] Work Phone: 03-11-2021 12:47-0500 Heart rate 75 /min Dr. Kamilah Patel Work Phone: [facility] Work Phone: 03-11-2021 12:47-0500 Respiratory rate 16 /min Dr. Kamilah Patel Work Phone: [facility] Work Phone: 03-11-2021 12:47-0500 SaO2% (BldA) [Mass fraction] 97 % Dr. Kamilah Patel Work Phone: [facility] Work Phone: 03-11-2021 12:47-0500 Systolic blood pressure 136 mm[Hg] Dr. Kamilah Patel Work Phone: [facility] Work Phone: 11-09-2016 15:43-0400 BMI (Body Mass Index) 27.87 kg/m2 Mariel Coronado LPN [facility] Now in Work Phone: 11-09-2016 15:43-0400 Body Temperature 97.7 [degF] Mariel Coronado LPN [facility] Work Phone: 11-09-2016 15:43-0400 BP Diastolic 80 mm[Hg] Mariel Coronado LPN [facility] Work Phone: 11-09-2016 15:43-0400 BP Systolic 126 mm[Hg] Mariel Coronado LPN [facility] Work Phone: 11-09-2016 15:43-0400 Height 162.56 cm Mariel Coronado LPN [facility] Work Phone: 11-09-2016 15:43-0400 Pulse (Heart Rate) 79 /min Mariel Coronado LPN [facility] Now Clini c Work Phone: 11-09-2016 15:43-0400 Respiratory Rate 15 /min Mariel Coronado LPN [facility] Work Phone: 11-09-2016 15:43-0400 Weight 73.66 kg Mariel Coronado LPN [facility] Work Phone: 10-09-2016 12:46-0400 BMI (Body Mass Index) 27.94 kg/m2 Leilani Baron LPN [facility] No w Clinic Work Phone: 10-09-2016 12:46-0400 Body Temperature 97.7 [degF] Leilani Baron LPN [facility] Now [facility] Work Phone: 10-09-2016 12:46-0400 BP Diastolic 72 mm[Hg] Leilani Baron LPN [facility] Now Clin ic Work Phone: 10-09-2016 12:46-0400 BP Systolic 108 mm[Hg] Leilani Baron LPN [facility] Now [facility] ic Work Phone: 10-09-2016 12:46-0400 Height 162.56 cm Leilani Baron LPN [facility] Now Clin ic Work Phone: 10-09-2016 12:46-0400 Pulse (Heart Rate) 64 /min Leilani Baron LPN [facility] Now C linic Work Phone: 10-09-2016 12:46-0400 Pulse Oximetry 95 % Leilani Baron LPN [facility] Now Clin ic Work Phone: 10-09-2016 12:46-0400 Respiratory Rate 12 /min Leilani Baron LPN [facility] Now [facility] Work Phone: 10-09-2016 12:46-0400 Weight 73.85 kg Leilani Baron ARMATURE STRAIGHTENER [facility] Now Clin ic Work Phone: 09-20-2016 13:04-0400 BMI (Body Mass Index) 28.87 kg/m2 Brisa Mimsho ARMATURE STRAIGHTENER [facility] Work Phone: 09-20-2016 13:04-0400 Body Temperature 98.4 [degF] Brisa Williamnsho ARMATURE STRAIGHTENER [facility] Work Phone: 09-20-2016 13:04-0400 BP Diastolic 73 mm[Hg] Brisa Williamnsho ARMATURE STRAIGHTENER [facility] Work Phone: 09-20-2016 13:04-0400 BP Systolic 104 mm[Hg] Brisa Williamnsho ARMATURE STRAIGHTENER [facility] Work Phone: 09-20-2016 13:04-0400 Height 160.02 cm Brisa Felicitaho ARMATURE STRAIGHTENER [facility] Work Phone: 09-20-2016 13:04-0400 Pulse (Heart Rate) 70 /min Brisa Felicitaho ARMATURE STRAIGHTENER [facility] Work Phone: 09-20-2016 13:04-0400 Pulse Oximetry 96 % Brisa Felicitaho ARMATURE STRAIGHTENER [facility] Work Phone: 09-20-2016 13:04-0400 Respiratory Rate 18 /min Brisa Felicitaho ARMATURE STRAIGHTENER [facility] Work Phone: 09-20-2016 13:04-0400 Weight 73.94 kg Brisa Felicitaho ARMATURE STRAIGHTENER [facility] Work Phone: 02-03-2016 12:57-0400 BMI (Body Mass Index) 31.88 kg/m2 Kristen Marie LPN [facility] Work Phone: 02-03-2016 12:57-0400 Body Temperature 96.62 [degF] Kristen Marie ARMATURE STRAIGHTENER [facility] [place] Work Phone: 02-03-2016 12:57-0400 Body Temperature 96.6 [degF] Kristen Marie ARMATURE STRAIGHTENER [facility] [place] Work Phone: 02-03-2016 12:57-0400 BP Diastolic 73 mm[Hg] Kristen Marie ARMATURE STRAIGHTENER [facility] Work Phone: 02-03-2016 12:57-0400 BP Systolic 140 mm[Hg] Kristen Marie ARMATURE STRAIGHTENER [facility] Work Phone: 02-03-2016 12:57-0400 BSA (Body Surface Area) 1.85 m2 Kristen Marie ARMATURE STRAIGHTENER [facility] Work Phone: 02-03-2016 12:57-0400 Height 160.02 cm Kristen Marie ARMATURE STRAIGHTENER [facility] Work Phone: 02-03-2016 12:57-0400 Pulse (Heart Rate) 91 /min Kristen Marie ARMATURE STRAIGHTENER [facility] Work Phone: 02-03-2016 12:57-0400 Pulse Oximetry 97 % Kristen Marie ARMATURE STRAIGHTENER [facility] Work Phone: 02-03-2016 12:57-0400 Respiratory Rate 18 /min Kristen Marie ARMATURE STRAIGHTENER [facility] [place] Work Phone: 02-03-2016 12:57-0400 Weight 81.82 kg Kristen Marie ARMATURE STRAIGHTENER [facility] Work Phone: 02-03-2016 12:57-0400 Weight 81.65 kg Kristen Marie ARMATURE STRAIGHTENER [facility] Work Phone: 12-30-2015 14:51-0400 Heart rate 62 /min Kristen Marie ARMATURE STRAIGHTENER [facility] Work Phone: Encounters Encounter Date Encounter Type Care Provider Facility Start: 10-17-2024 ambulatory Cathie De Jesus BRAKE RIDER Fac ility:[facility] Start: 09-10-2024 End: 09-10-2024 Patient encounter procedure Cathie De Jesus BRAKE RIDER-C -[facility] Work Phone: Start: 09-10-2024 End: 09-10-[address] Naomi Whyte DO Work Phone: [facility] Work Phone: Start: 09-05-2024 ambulatory Cathie De Jesus BRAKE RIDER Fac ility:[facility] Start: 08-08-2024 ambulatory Cahtie De Jesus BRAKE RIDER Fac ility:[facility] Start: 07-04-2024 End: 07-04-2024 Patient encounter procedure Cathie De Jesus BRAKE RIDER-C -[facility] Work Phone: Start: 07-04-2024 End: 07-04-[address] Naomi Whyte DO Work Phone: [facility] Work Phone: Start: 06-03-2024 ambulatory Cathie De Jesus BRAKE RIDER Fac ility:[facility] Start: 04-25-2024 End: 04-25-2024 Patient encounter procedure Ctahie De Jesus BRAKE RIDER-C -[facility] Work Phone: Start: 04-25-2024 End: 04-25-2024 ambulatory Cathie De Jesus NP Facility:[facility] Start: 03-21-2024 End: 03-21-2024 Patient encounter procedure Cathie De Jesus BRAKE RIDER-C -[facility] Work Phone: Start: 03-21-2024 End: 03-21-2024 ambulatory Naomi Whyte Facility:[facility] Start: 03-12-2024 End: 03-12-2024 Patient encounter procedure Cathie De Jesus BRAKE RIDER-C -[facility] Work Phone: Start: 03-12-2024 End: 03-12-2024 ambulatory Cathie De Jesus BRAKE RIDER Facility:[facility] Start: 02-29-2024 ambulatory Cathie De Jesus BRAKE RIDER Fac ility:[facility] Start: 02-14-2024 End: 02-14-2024 ambulatory Naomi Whyet Facility:[facility] Start: 01-18-2024 End: 01-18-2024 ambulatory Cathie De Jesus BRAKE RIDER Facility:[facility] Start: 12-28-2023 End: 12-28-2023 ambulatory Cathie De Jesus BRAKE RIDER Facility:[facility] Start: 12-14-2023 End: 12-14-2023 ambulatory Cathie De Jesus BRAKE RIDER Facility:[facility] Start: 11-09-2023 End: 11-09-2023 ambulatory Cathie De Jesus BRAKE RIDER Facility:[facility] Start: 08-15-2023 End: 08-15-[address] Kamilah Patel Work Phone: [facility] Work Phone: Start: 08-15-2023 End: 08-15-[address] Kamilah Patel Work Phone: [facility] Work Phone: Start: 08-02-2023 End: 08-02-[address] Kamilah Patel Work Phone: [facility] Work Phone: Start: 06-15-2023 End: 06-15-[address] Kamilah Patel Work Phone: [facility] Work Phone: Start: 06-15-2023 End: 06-15-[address] Kamilah Patel Work Phone: [facility] Work Phone: Start: 05-18-2023 End: 05-18-[address] Kamilah Patel Work Phone: [facility] Work Phone: Start: 05-18-2023 End: 05-18-[address] Kamilah Patel Work Phone: [facility] Work Phone: Start: 05-16-2023 End: 05-16-[address] Kamilah Patel Work Phone: [facility] Work Phone: Start: 04-20-2023 End: 04-20-[address] Kamilah Patel Work Phone: [facility] Work Phone: Start: 04-20-2023 End: 04-20-[address] [facility] Work Phone: Start: 03-26-2023 End: 03-26-[address] Kamilah Patel Work Phone: [facility] Work Phone: Start: 03-26-2023 End: 03-26-[address] Kamilah Patel Work Phone: [facility]-Outpatient Breast Imaging Work Phone: Start: 02-23-2023 End: 02-23-[address] Kamilah Patel Work Phone: [facility] Work Phone: Start: 02-23-2023 End: 02-23-[address] Kamilah Patel Work Phone: [facility] Work Phone: Start: 2023 End: [address] Kamilah Patel Work Phone: [facility] Work Phone: Start: 01-26-2023 End: 01-26-2023 ambulatory [facility] Work Phone: Start: 01-26-2023 End: 01-26-2023 Patient encounter procedure [facility] Work Phone: Start: 12-29-2022 End: 12-29-2022 ambulatory [facility] Work Phone: Start: 12-29-2022 End: 12-29-2022 Patient encounter procedure [facility] Work Phone: Start: 12-21-2022 End: 12-21-2022 ambulatory [facility] Work Phone: Start: 12-21-2022 End: 12-21-2022 Patient encounter procedure [facility]-Cat Scan, [facility] Work Phone: Start: 12-15-2022 End: 12-15-2022 Emergency department patient visit [facility]-Emergency Department Work Phone: Start: 12-01-2022 End: 12-01-2022 ambulatory [facility] Work Phone: Start: 12-01-2022 End: 12-01-2022 Patient encounter procedure [facility] Work Phone: Start: 11-02-2022 End: 11-02-2022 Patient encounter procedure [facility] Work Phone: Start: 09-28-2022 End: 09-28-[address] Kamilah Patel Work Phone: [facility] Work Phone: Start: 09-28-2022 End: 09-28-[address] Kamilah Patel Work Phone: [facility] Start: 08-24-2022 End: 08-24-[address] Kamilah Patel Work Phone: [facility] Start: 08-01-2022 End: 08-01-[address] Kamilah Patel Work Phone: [facility] Start: 07-27-2022 End: 07-27-2022 ambulatory [facility] Work Phone: Start: 07-27-2022 End: 07-27-2022 Patient encounter procedure [facility] Start: 06-22-2022 End: 06-22-2022 ambulatory [facility] Work Phone: Start: 06-22-2022 End: 06-22-2022 Patient encounter procedure [facility] Start: 05-25-2022 End: 05-25-[address] Kamilah Patel Work Phone: [facility] Work Phone: Start: 05-25-2022 End: 05-25-[address] Kamilah Patel Work Phone: [facility] Start: 04-27-2022 End: 04-27-[address] Kamilah Patel Work Phone: [facility] Start: 03-21-2022 End: 03-21-[address] Kamilah Patel Work Phone: [facility] Work Phone: Start: 03-21-2022 End: 03-21-[address] Kamilah Patel Work Phone: [facility] Start: 02-09-2022 End: 02-09-[address] Kamilah Patel Work Phone: [facility] Work Phone: Start: 02-09-2022 End: 02-09-[address] Kamilah Patel Work Phone: [facility]-Sleep Lab Start: 02-08-2022 End: 02-08-[address] Kamilah Patel Work Phone: [facility] Work Phone: Start: 02-08-2022 End: 02-08-[address] Kmailah [facility] Start: 02-08-2022 End: 02-08-[address] Kamilah Patel Work Phone: [facility] Start: 01-30-2022 End: 01-30-[address] Kamilah Patel [facility] Start: 01-24-2022 End: 01-24-[address] Kamilah Patel Work Phone: [facility] Work Phone: Start: 01-24-2022 End: 01-24-[address] Kam[facility] Pat[facility] Start: 12-27-2021 End: 12-27-[address] Kam[facility] Pat[facility] Start: 12-19-2021 End: 12-19-[address] Kamilah Patel Work Phone: [facility] Start: 12-15-2021 End: 12-15-[address] Kamilah Patel Work Phone: [facility] Work Phone: Start: 12-15-2021 End: 12-15-[address] Kamilah Patel Work Phone: [facility] Start: 11-23-2021 End: 11-23-[address] Kamil[facility] Pat[facility] Start: 11-10-2021 End: 11-10-[address] Kamilah Patel [facility] Start: 11-09-2021 End: 11-09-[address] Kamilah Patel Work Phone: [facility] Start: 10-21-2021 End: 10-21-[address] Kamil[facility] Pat[facility] Start: 09-02-2021 End: 09-02-[address] Kamil[facility] Pat[facility] Start: 08-05-2021 End: 08-05-[address] Kamil[facility] Pat[facility] Start: 07-07-2021 End: 07-07-[address] Kamil[facility] Pat[facility] Start: 06-28-2021 End: 06-28-[address] Kamilah Patel Work Phone: [facility]-Cat Scan, [facility] Start: 05-20-2021 End: 05-20-[address] Kamilah Patel [facility] Start: 04-18-2021 End: 04-18-[address] Kamilah Patel Work Phone: [facility] Start: 04-06-2021 End: 04-06-[address] Kamilah Patel Work Phone: [facility] Start: 04-04-2021 End: 04-04-2021 Emergency department patient visit Dr. Kamilah Patel Work Phone: [facility]-Emergency Department Start: 03-11-[address] Kamilah Patel Work Phone: [facility] Procedures Date Procedure Procedure Detail Performing Clinician Start: 03-26-2023 Screening mammography Brigitte Patel Work Phone: Start: 12-21-2022 CT of chest Start: 12-15-2022 Viral antigen assay Start: 12-15-2022 Plain chest X-ray Start: 12-19-2021 CT of chest without contrast Dr. Kamilah Patel Work Phone: Start: 06-28-2021 CT of chest without contrast Dr. Kamilah Patel Work Phone: Start: 11-09-2016 End: 11-09-2016 Urinalysis Mariel Coronado ARMATURE STRAIGHTENER Start: 11-09-2016 End: 11-09-2016 Urnls dip stick/tablet rgnt non-auto w/o micrscp [employer] Work Phone: Start: 09-20-2016 End: 09-20-2016 Dietary management education, guidance, and counseling Brisa Ball ARMATURE STRAIGHTENER Start: 02-03-2016 End: 02-03-2016 Dietary management education, guidance, and counseling Kristen Marie ARMATURE STRAIGHTENER Start: 02-03-2016 End: 03-13-2016 DMB Cathie Esquivel BRAKE RIDER Work Phone: Start: 02-03-2016 End: 03-13-2016 Follow Up Appt 6 months Cathie hernandez PROCESS PLANNER Work Phone: Start: 02-03-2016 End: 02-04-2016 Referral to neurologist Cathie hernandez PROCESS PLANNER Work Phone: Start: 01-03-2016 End: 03-13-2016 CSM Cathie Esquivel BRAKE RIDER Work Phone: Start: 01-03-2016 End: 03-13-2016 Follow Up Appt 1 month Cathie sawant PROCESS PLANNER Work Phone: Start: 12-30-2015 End: 02-08-2016 Arterial [...] stress test/simple Anthony rock DO Work Phone: Urine culture Dr. Kamilah patterson Work Phone: Urine culture Dr. Kamilah patterson Work Phone: Plan of Treatment Date Care Activity Detail Author Start: 12-15-2022 [facility] Start: 08-01-2022 Patient referral [facility] Work Phone: Start: 03-19-2017 End: 03-19-2017 Appointment Appointment [facility] Work Phone: Start: 11-09-2016 End: 11-09-2016 Appointment Appointment [facility] Work Phone: Start: 10-09-2016 End: 10-09-2016 Appointment Appointment [facility] Work Phone: Start: 09-20-2016 End: 09-20-2016 Appointment Appointment [facility] Work Phone: Start: 09-20-2016 End: 09-20-2016 [facility] Work Phone: Start: 09-20-2016 End: 09-20-2016 Follow Up Appt 6 months Follow Up Appt 6 months [facility] Work Phone: Start: 02-03-2016 End: 03-13-2016 DMB DMB [facility] Work Phone: Start: 02-03-2016 End: 03-13-2016 Follow Up Appt 6 months Follow Up Appt 6 months [facility] Work Phone: Start: 02-03-2016 End: 03-13-2016 Neurology Referral Neurology Referral [facility] Work Phone: Start: 01-25-2016 End: 01-25-2016 Vascular Surgery Vascular Surgery Janak Crawley MD, [address], [place] [address], [place], [address] [facility] Work Phone: Start: 01-03-2016 End: 03-13-2016 [facility] Work Phone: Start: 01-03-2016 End: 03-13-2016 Follow Up Appt 1 month Follow Up Appt 1 month [facility] Work Phone: Start: 12-30-2015 End: 12-30-2015 Arterial exam Arterial exam [facility] Work Phone: Start: 12-30-2015 End: 12-30-2015 Echocardiography Echocardiogram (complete) [facility] Work Phone: Start: 12-30-2015 End: 12-30-2015 Electrocardiogram, complete EKG (In office) [facility] Work Phone: Start: 12-30-2015 End: 12-30-2015 Follow Up Appt 6 weeks Follow Up Appt 6 weeks [facility] Phone: Start: 12-30-2015 End: 12-30-2015 Follow Up Appt Other Follow Up Appt Other [facility] Phone: Start: 12-30-2015 End: 12-30-2015 MMM MMM [facility] Phone: Start: 12-30-2015 End: 12-30-2015 Nuclear stress test -Lexiscan Nuclear stress test -Lexiscan [facility] Phone: Start: 12-30-2015 End: 03-13-2016 Titration with Follow up (pt not on cpap) Titration with Follow up (pt not on cpap) [facility] Phone: Start: 12-02-2015 End: 12-30-2015 Complete sleep workup (PSG,CPAP as indicated) & Follow up Complete sleep workup (PSG,CPAP as indicated) & Follow up [facility] Phone: Start: 12-02-2015 End: 12-02-2015 [facility] Phone: Start: 12-02-2015 End: 12-02-2015 Follow Up Appt 1 month Follow Up Appt 1 month [facility] Phone: Start: 12-02-2015 End: 12-02-2015 Pulmonary Function Test - complete Pulmonary Function Test - complete [facility] Phone: Start: 12-02-2015 End: 12-30-2015 Pulmonary stress test/simple Pulmonary stress testing; simple (eg, 6-minute walk) [facility] Phone: Blood chemistry [facility] Brain natriuretic pe ptide measurement [facility] CT Chest [facility] CT [facility] CT Chest [facility] Patient Education [facility] Now [facility] Work Phone: Patient referral [facility] Work Phone: XR Chest PA and Lateral [facility] Immunizations Immunization Date Immunization Notes Care Provider Roxi yoder 11-22-2015 diphtheria, tetanus toxoids and acellular pertussis vaccine, unspecified formulation; Translations: [SXYRBFF-NYATWD-RLSFH PERTUSSIS] Kristen Marie LPN [facility] Work Phone: 11-22-2015 pneumococcal vaccine , unspecified formulation; Translations: [PNEUMOCOCCAL 13-FAVIAN CONJ VACC] Kristen Marie LPN [facility] Work Phone: 11-22-2015 varicella zoster imm une globulin; Translations: [ZOSTER VACCINE LIVE] Kristen Marie LPN [facility] Work Phone: Payers Date Payer Category Payer Self-pay [id number] 2023 Medicare [id number] 2023 Unknown [id number] Medicaid [id number] Unknown [id number] Unknown [id number] Unknown [id number] 2.16.8 [id number] Unknown [id number] 2.16.8 [id number] Unknown [id number] 2.16.8 [id number] Unknown [id number] 2.16.8 [id number] Unknown [id number] 2.16.8 [id number] Unknown [id number] 2.16.8 [id number] Unknown [id number] 2.16.8 [id number] Unknown [id number] 2.16.8 [id number] Unknown [id number] 2.16.8 [id number] Unknown [id number] 2.16.8 [id number] Unknown [id number] 2.16.8 [id number] Unknown [id number] 2.16.8 [id number] Unknown [id number] 2.16.8 [id number] Unknown [id number] 2.16.8 [id number] Unknown [id number] 2.16.8 [id number] Unknown [id number] 2.16.8 [id number] Unknown [id number] 2.16.8 [id number] Social History Date Type Detail Facility Start: 07-07-2021 End: 08-02-2023 Tobacco smoking status RIIS Unknown if ever smoked [facility] Start: 1955 Sex Assigned At Female W [facility] Start: 08-02-2023 Tobacco smoking stat us RIIS Ex-smoker (finding) [facility] Start: 07-05-2024 Sex Female (finding) [facility] Mental Status Date Assessment Result Facility 09-10-2024 Cognitive function Voice/Name [facility] Work Phone: 07-04-2024 Cognitive function Awake;Alert;A ppropriate;[facility] [employer] Work Phone: 03-21-2024 Cognitive function Awake;Alert;A ppropriate;[facility] Work Phone: 08-15-2023 Cognitive function Awake;Alert;[facility]pri[facility] Work Phone: 06-15-2023 Cognitive function Voice/Name [facility] Work Phone: 04-20-2023 Cognitive function Voice/Name [facility] Work Phone: 02-23-2023 Cognitive function Awake;Alert;A ppropriate;[facility] Work Phone: 01-26-2023 Cognitive function Voice/Name [facility] Work Phone: 12-29-2022 Cognitive function Awake;Alert;A ppropriate;[facility] Work Phone: 12-01-2022 Cognitive function Awake;Alert;A ppropriate;[facility] Work Phone: 11-02-2022 Cognitive function Voice/Name [facility] Work Phone: 09-28-2022 Cognitive function Awake;Alert;A ppropriate;[facility] Work Phone: 08-24-2022 Cognitive function Voice/Name [facility] Work Phone: 07-27-2022 Cognitive function Awake;Alert;A ppropriate;[facility] Work Phone: 06-22-2022 Cognitive function Level Of Cons ciousness Awake;Alert;Appropriate;[facility] Work Phone: 05-25-2022 Cognitive function Voice/Name [facility] Work Phone: 04-27-2022 Cognitive function Voice/Name [facility] Work Phone: 03-21-2022 Cognitive function Level Of Cons ciousness Awake;Alert;Appropriate;[facility] Work Phone: 01-24-2022 Cognitive function Voice/Name [facility] Work Phone: 12-27-2021 Cognitive function Level Of Cons ciousness Awake;Alert;Appropriate;[facility] Work Phone: 11-23-2021 Cognitive function Voice/Name [facility] Work Phone: 10-21-2021 Cognitive function Level Of Cons ciousness Awake;Alert;Appropriate;[facility] Work Phone: 09-02-2021 Cognitive function Awake;Alert;A ppropriate;[facility] Work Phone: 08-05-2021 Cognitive function Voice/Name [facility] Work Phone: 05-20-2021 Cognitive function Awake;Alert;A ppropriate;[facility] Work Phone: 03-11-2021 Cognitive function Voice/Name [facility] Work Phone: Clinical Notes 12-15-2022 to 09-10-2024 Note Date & Type Note Facility 09-10-2024 Evaluation note Diagnosis Onset Date Resolution Asthma-COPD overlap syndrome chronic September 10, 2024 1 :33pm Tobacco abuse, in remission chronic September 10, 2024 1 :33pm [facility] Work Phone: [id number] Evaluation note* Diagnosis Onset Date Resolution Status Admit Date Asthma-COPD overlap syndrome chronic September 10, 2024 1:33pm PHILIP (obstructive sleep apnea) chroni c September 10, 2024 1:33pm Tobacco abuse, in remission chronic September 10, 2024 1:33pm [facility] Work Phone: [phone] Evaluation note* Diagnosis Onset Date Resolution Status Admit Date Asthma-COPD overlap syndrome chronic March 12, 2024 12:29pm PHILIP (obstructive sleep apnea) chronic March 12 12:29pm Tobacco abuse, in remission chronic March 12, 2024 12:29pm [facility] Work Phone: [phone]) 802-220709-08-2023 Discharge summary Author Jagdish Day [facility] December 15, 2022 9:50am Note Date/Time December 15, 2022 7:33am [facility] Medical Records Department [address] [place] [address] Emergency Department Summary 12/15/22 MR#: [id number] Acct: [id number] Name: TARSHA GONZALEZ Rep #:[id number] : 1955 67 From: Jagdish Day MD PCP: Dr. Kamilah Patel MD Status:REG ER Location: ED HPI History of Present Illness Chief Complaint: Shortness of Breath Informant: patient Onset/Context/Timing Onset: Days Context: gradual Timing: Continuous Quality: Positive for Wheezing Current Severity: Moderate Maximum Severity: Moderate Worsened by: Coughing Relieved by: Albuterol Associated Symptoms cough and clear sputum; Negative for fever or chills Chest Pain: Positive for None Narrative Narrative: Female history of COPD not on home O2 CAD and peripheral vascular disease on Plavix. Patient states she has had URI symptoms since probably Sunday with increasing shortness of breath. No fever. No chest pain she is has been with coughing. Not exertional. No hemoptysis. No leg pain or swelling. No historyof DVT or PE or risk factors. States that she is audibly wheezing and did take a aerosol treatment at home this morning. That helped but she still short of breath. PE Risk Factors: Negative for Cancer, OCP + Smoking + > 35, Prior DVT or PE, Recent immobilization, Recent surgery or Recent travel Prior similar symptoms: Yes Recent Illness/Hospitalization: No PFSH PFSH Medical History Atherosclerotic heart disease of [place] coronary artery without angina pectoris Cardiac murmur, unspecified Central sleep apnea Chest pain, unspecified COPD (chronic obstructive pulmonary disease) COVID-19 TORREZ (dyspnea on exertion) Hyperlipidemia Nicotine dependence in remission Obesity PHILIP (obstructive sleep apnea) Peripheral vascular disease Urinary frequency Urinary tract infection with hematuria UTI (urinary tract infection) Home Medications clopidogrel 75 mg tablet 75 mg PO DAILY 10/23/15 [History Last Taken 05/10/18] spacer #1 ea 07/29/19 [Rx Last Taken Unknown] Disability Placard #1 ea 01/04/21 [Rx Last Taken Unknown] albuterol sulfate 2.5 mg/3 mL (0.083 %) solution for nebulization 2.5 mg (3 mL) inhalation Q4H PRN #120 vials 08/01/22 [Rx Last Taken Unknown] albuterol sulfate 90 mcg/actuation aerosol inhaler 2 puff inhalation Q4H PRN shortness of breath or wheezing #8.5 grams 08/01/22 [Rx Last Taken Unknown] loratadine 10 mg capsule 10 mg PO QDAY #90 caps 08/01/22 [Rx Last Taken Unknown] fluvoxamine 100 mg tablet mg 11/02/22 [History Last Taken Unknown] prednisone 20 mg tablet 40 mg (2 x 20 mg) PO DAILY 5 days #10 tabs 12/15/22 [Rx Last Taken Unknown] Allergy/AdvReac Type Severity Reaction Status Date / Time codeine Allergy Itching Verified 12/15/22 07:11 morphine Allergy Itching Verified 12/15/22 07:11 doxycycline AdvReac Severe severe Verified 12/15/22 07:11 headaches and muscle spasms to the chest Family History Mother Cancer Lung CA Father Emphysema Chronic Bronchitis, in 80s. Sister Diabetes CAD (coronary artery disease) Sister Heart disease Brother Respiratory abnormalities Cancer Surgical History H/O: hysterectomy S/P surgical manipulation of ankle joint Social History Smoking Status: Former smoker Tobacco: How many years used: 40 how long ago did patient quit smoking: about 8 years ago second hand exposure: No alcohol intake: never substance use type: does not use what type of physical activity do you participate in: none ROS ROS ED ROS Narrative Cough. Clear sputum. Shortness of breath and wheezing. Review of Systems ROS Unobtainable: Denies due to encephalopathy Constitutional Constitutional ED: Denies chills or fever(s) Eyes Eyes: Denies blurry vision ENT ENT ED: Denies ear pain, rhinorrhea or sore throat Cardiovascular Cardiovascular: Denies chest pain or palpitations Respiratory/Chest Respiratory/Chest: Reports cough, dyspnea and sputum Gastrointestinal Gastrointestinal: Denies abdominal pain, diarrhea, melena, nausea or vomiting Genitourinary Genitourinary ED: Denies dysuria Musculoskeletal Musculoskeletal: Denies arthralgias Integumentary Denies abscess Neurologic Neurologic: Denies headache(s) Psychiatric Psychiatric: Denies anxiety Endocrine Endocrinology: Denies cold intolerance Hematologic/Lymphatic Hematologic/Lymphatic: Denies easy bleeding or easy bruising Allergic/Immunologic Allergic/Immunologic ED: Denies mouth swelling or tongue swelling EXAM Physical Exam Narrative Exam Narrative: Six 7-year-old female vital signs are stable. Pulse ox 91% on room air. She issitting upright in bed audibly wheezing. H EENT exam unremarkable. Moist membranes. Neck nontender no JVD. No lymphadenopathy. Lungs expiratory wheezing throughout bilaterally. Equal symmetrical. No rhonchi or rales. Heart regular rhythm rate about 85 no murmur. Chest wall nontender. Abdomen soft nontender. Moving all 4 extremities. Calves are nontender without edema or cords. She is awake and alert. Answering questions following commands. Const Vital Signs: 12/15/22 07:11 12/15/22 07:23 12/15/22 07:25 Temperature 96.9 F L 98 F Temperature Source Temporal Oral Pulse Rate 105 H 87 Respiratory Rate 24 H 20 H Respiratory Effort Short of Breath Respiratory Depth Shallow Respiratory Pattern Tachypnea Blood Pressure 144/91 H 165/84 H Blood Pressure Mean 108 111 Pulse Ox 91 92 Oxygen Delivery Method Room Air Room Air Room Air 12/15/22 07:20 12/15/22 07:32 Temperature Temperature Source Pulse Rate 96 Respiratory Rate 20 H Respiratory Effort Respiratory Depth Respiratory Pattern Normal Blood Pressure Blood Pressure Mean Pulse Ox Oxygen Delivery Method Room Air Positive well nourished and well developed; Negative for cachectic, contracturesor unkempt General Appearance ED: well developed; Negative for unkempt, cachectic, contractures, NAD or pallor Nutritional Appearance: Negative for cachectic HEENT Reports moist mucous membranes; Denies TM's clear Negative for atraumatic, trauma or tenderness Tympanic Membrane ED: Negative for TM's clear Eyes PERRL and EOMs intact bilaterally General Eye ED: Negative for pale conjunctiva or scleral icterus Neck no lymphadenopathy, supple, no meningeal signs and no JVD General: Negative for tenderness Lymph Lymphatic: Negative for other Chest Wall Chest: Negative for other Resp No normal respiratory effort and No clear to auscultation bilaterally Resp Narrative: Increased work of breathing. Increased respiratory rate. Auscultation: wheezes Cardio regular rate, regular rhythm, S1 normal heart sound, S2 normal heart sound and no murmurs Rate: Negative for bradycardia or tachycardic Rhythm: Negative for abnormal rhythm GI non-tender, non-distended and no masses Inspection: Negative for other Auscultation: normoactive bowel sounds Palpation: soft; Negative for tender or guarding Back/Spine no CVA tenderness and normal to inspection General Back: Negative for CVA tenderness Extremity normal to inspection General Extremety ED: Negative for edema or tenderness General Extremity: Negative for edema Neuro oriented x3 and CN's II-XII intact bilaterally Sensorium / Orientation: alert, oriented to person, oriented to place and oriented to time; Negative for orientation impaired, confused or lethargic Speech: speech normal Motor Exam: strength 5/5 throughout Psych mental status grossly normal Appearance: Negative for unkempt Attitude: No agitated Mood & Affect: Negative for depressed, anxious or tearful Thought Process: normal thought process Skin no wounds and skin turgor normal General Skin Exam: Negative for jaundice or pallor Lesions: no lesions Rashes: no rashes Trauma: Negative for abrasion MDM MDM MDM Narrative Medical decision making narrative: 67-year-old female with a shortness of breath that I think is secondary to COPD flare rule out URI, COVID or pneumonia. Rule out cardiac etiology. She will get a chest x-ray and labs. EKG. Treated with Solu-Medrol IV DuoNeb and albuterol aerosols. Exam patient is doing quite well at 9:40 AM. Wheezing is resolved. She feels much better breathing is much better. We went over all of her test results. Also her positive COVID result. She will be discharged home. She has nebulizerand medications at home. She will be given a prescription for prednisone for the next 5 days. Follow-up if not improving or return if worse. History & Record Review Discussion w/independent historian: Patient Lab Data Attestation: I reviewed the patient's lab results. Lab results narrative: C unremarkable. White count of 6. H&H 14 and 43. Platelets 321. Lites show a gap 7 normal BUN and creatinine of 11 and 1. Glucose 109. Troponin 19. Labs: Laboratory Results - last 24 hr 12/15/22 07:41 WBC 6.1 RBC 4.90 Hgb 14.4 Hct 43.4 MCV 88.6 MCH 29.4 MCHC 33.2 RDW Std Deviation 40.5 RDW Coeff of Grace 12.5 Plt Count 321 MPV 9.2 Immature Gran % (Auto) 0.500 Neut % (Auto) 46.2 L Lymph % (Auto) 40.1 [place] % (Auto) 11.0 H Eos % (Auto) 1.5 Baso % (Auto) 0.7 Absolute Neuts (auto) 2.8 Absolute Lymphs (auto) 2.44 Nucleated RBC % 0 Sodium 138 Potassium 3.5 Chloride 109 H Carbon Dioxide 22.0 Anion Gap 7 BUN 11 Creatinine 1.00 Estim Creat Clear Calc 45.16 Est GFR (MDRD) Af Amer 71 Est GFR (MDRD) Non-Af 59 L BUN/Creatinine Ratio 11.1 Glucose 109 H Calcium 9.7 Troponin I High Sens 19 Radiography Chest X-Ray - ED: 1 View, Read by ED Physician, Read by Radiologist, Heart, Lungs, Mediastinum, Bony Structures, No Acute Disease and Chronic Changes Diagnostic Testing: Clinical Impression(s) from Imaging Studies Chest X-Ray 12/15/22 07:45 IMPRESSION: No radiographic evidence of acute cardiopulmonary disease. Electronically Signed: Apolonia Keenan MD at 8:06 EDT Reading Location ID and State: [facility] / [place] Tel , Service support , Chest x-ray, portable, single view interpreted both by myself and the radiologist shows no acute abnormality. Normal cardiac silhouette. Normal lungfields. Rhythm Strip Rhythm Strip: Sinus Rhythm Rate: 87 Ectopy: None EKG Initial EKG: Attestation: I personally reviewed and interpreted this EKG as follows: Interpretation: Sinus Rhythm and No Acute Injury Pattern Comments: Normal sinus rhythm rate 87 no acute signs of LA. Discharge Plan Triage Chief Complaint: Shortness of Breath ED Provider: Jagdish Day Dx/Rx/DC Orders Clinical Impression: COVID-19, History of CAD (coronary artery disease), COPD exacerbation Instructions: Human Coronaviruses, ED COPD Flare Prescriptions: New prednisone 20 mg tablet 40 mg PO DAILY 5 Days Qty: 10 0RF No Action (DME) spacer See Rx Instructions .Route .MEDSUPPLY Qty: 1 0RF Rx Instructions: As directed (DME) Disability Placard See Rx Instructions .Route .MEDSUPPLY Qty: 1 0RF Rx Instructions: expires 12/10/2025 albuterol sulfate 2.5 mg /3 mL (0.083 %) solution for nebulization 2.5 mg INHALATION Q4H PRN Qty: 120 6RF Rx Instructions: Use q4 hours and PRN for wheezing albuterol sulfate 90 mcg/actuation HFA aerosol inhaler 2 puff inhalation Q4H PRN (Reason: shortness of breath or wheezing) Qty: 8.5 6RF Rx Instructions: administer with spacer loratadine 10 mg capsule 10 mg PO QDAY Qty: 90 3RF clopidogrel 75 MG tablet 75 mg PO DAILY fluvoxamine 100 mg tablet Patient Comments: TAKE 1 TABLET BY MOUTH ONCE DAILY Primary Care Provider: Kamilah Patel Referrals: Kamilah Patel MD [Primary Care Provider] - 3-5 Days if not improving Activity Restrictions/Additional Instructions: Plenty of fluids and rest. Your nebulizer at home as needed for wheezing and shortness of breath. Prednisone 40 mg a day for the next 5 days starting tomorrow. Follow-up if not improving or return if worse. Disposition Disposition: Home, Self Care What to do if you have Problems For any increased pain, shortness of breath, bleeding, nausea or vomiting, chestpain, or any unexpected problems, contact your Primary Care Provider. Call [facility] ([phone]) or report to the closest Emergency Room. Call 911 if necessary. 12/15/22 0950 <Electronically signed by Jagdish Day MD> Cosigner Signature (if applicable): CC: Dr. Kamilah Patel MD ~ Signed [facility] Work Phone: Evaluation note* Diagnosis Onset Date Resolution Status COVID-19 acute Acute pharyngitis acute Asthma-COPD overlap syndrome chronic Lung nodule chronic PHILIP (obstructive sleep apnea) chronic [facility] Work Phone: Evaluation note* Diagnosis Onset Date Resolution Status Acute pharyngitis acute Asthma-COPD overlap syndrome chronic Lung nodule chronic PHILIP (obstructive sleep apnea) chronic [facility] Work Phone: Evaluation note* Diagnosis Onset Date Resolution Status Asthma-COPD overlap syndrome chronic Lung nodule chronic PHILIP (obstructive sleep apnea) chronic [facility] Work Phone: Evaluation note* Diagnosis Onset Date Resolution Status Urinary tract infection with hematuria acute [facility] Work Phone: Evaluation note* Diagnosis Onset Date Resolution Status Urinary tract infection with hematuria acute Asthma-COPD overlap syndrome chronic PHILIP (obstructive sleep apnea) chronic Tobacco abuse, in remission chronic Urinary tract infection with hematuria acute [facility] Work Phone: Evaluation note* Diagnosis Onset Date Resolution Status Asthma-COPD overlap syndrome chronic PHILIP (obstructive sleep apnea) chronic Tobacco abuse, in remission chronic Urinary tract infection with hematuria acute [facility] Work Phone: Evaluation noteNo assessment information available [facility] Work Phone: Evaluation note* Diagnosis Onset Date Resolution Status Asthma-COPD overlap syndrome chronic PHILIP (obstructive sleep apnea) chronic Tobacco abuse, in remission chronic [facility] Work Phone: Evaluation note* Diagnosis Onset Date Resolution Status Asthma-COPD overlap syndrome chronic PHILIP (obstructive sleep apnea) chronic Tobacco abuse, in remission chronic Shortness of breath acute Wheezing acute [facility] Work Phone: Evaluation note* Diagnosis Onset Date Resolution Status Shortness of breath acute Wheezing acute [facility] Work Phone: Evaluation note* Diagnosis Onset Date Resolution Status Shortness of breath acute Wheezing acute Asthma-COPD overlap syndrome chronic Tobacco abuse, in remission chronic [facility] Work Phone: Hospital Discharge instructions Additional Instructions Plenty of fluids and rest. Your nebulizer at home as needed for wheezing and shortness of breath. Prednisone 40 mg a day for the next 5 days starting tomorrow. Follow-up if not improving or return if worse.[facility] Work Phone: Reason for referral (narrative)No [facility] for [facility]: Chief Complaint and Reason for Visit Chief Complaint NUCALA 100MG UTI SYMPTOMS/ COVID TEST SORE THROAT/EAR ACHE NUCALA Solitary pulmonary nodule 6 M FU Reason for Visit COVID-19 Acute pharyngitis Asthma-COPD overlap syndrome Lung nodule PHILIP (obstructive sleep apnea) Chief Complaint SORE THROAT/EAR ACHE NUCALA Solitary pulmonary nodule 6 M FU NUCALA Reason for Visit Acute pharyngitis Asthma-COPD overlap syndrome Lung nodule PHILIP (obstructive sleep apnea) Chief Complaint NUCALA Solitary pulmonary nodule 6 M FU NUCALA NUCALA Reason for Visit Asthma-COPD overlap syndrome Lung nodule PHILIP (obstructive sleep apnea) Chief Complaint NUCALA NUCALA NUCALA CONCERN FOR UTI Reason for Visit Urinary tract infect ion with hematuria Chief Complaint NUCALA NUCALA NUCALA CONCERN FOR UTI NUCALA Reason for Visit Urinary tract infect ion with hematuria Chief Complaint NUCALA NUCALA CONCERN FOR UTI NUCALA LUNG NODULE FOLLOW UP Reason for Visit Urinary tract infect ion with hematuria Chief Complaint NUCALA CONCERN FOR UTI NUCALA LUNG NODULE FOLLOW UP NUCALA NUCALA Reason for Visit Urinary tract infect ion with hematuria Chief Complaint NUCALA CONCERN FOR UTI NUCALA LUNG NODULE FOLLOW UP NUCALA NUCALA 6 M FU CONCERN FOR UTI OBSTRUCTIVE SLEEP APNEA Reason for Visit Urinary tract infect ion with hematuria Asthma-COPD overlap syndrome PHILIP (obstructive sleep apnea) Tobacco abuse, in remission Urinary tract infection with hematuria Chief Complaint LUNG NODULE FOLLOW U P NUCALA NUCALA 6 M FU CONCERN FOR UTI OBSTRUCTIVE SLEEP APNEA NUCALA Reason for Visit Asthma-COPD overlap syndrome PHILIP (obstructive sleep apnea) Tobacco abuse, in remission Urinary tract infection with hematuria Chief Complaint CONCERN FOR UTI OBSTRUCTIVE SLEEP APNEA NUCALA NUCALA NUCALA Reason for Visit Urinary tract infect ion with hematuria Chief Complaint NUCALA NUCALA NUCALA NUCALA Chief Complaint NUCALA NUCALA 6 M FU NUCALA NUCALA Reason for Visit Asthma-COPD overlap syndrome Lung nodule PHILIP (obstructive sleep apnea) Chief Complaint NUCALA NUCALA NUCALA NUCALA shortness of breath Chief Complaint NUCALA NUCALA NUCALA shortness of breath NICOTINE DEP Chief Complaint NUCALA NUCALA NUCALA shortness of breath NICOTINE DEP NUCALA Chief Complaint NUCALA NUCALA shortness of breath NICOTINE DEP NUCALA NUCALA Chief Complaint NUCALA NUCALA shortness of breath NICOTINE DEP NUCALA NUCALA 6 M FU NUCALA Reason for Visit Asthma-COPD overlap syndrome PHILIP (obstructive sleep apnea) Tobacco abuse, in remission Chief Complaint NUCALA shortness of breath NICOTINE DEP NUCALA NUCALA 6 M FU NUCALA SCREENING Reason for Visit Asthma-COPD overlap syndrome PHILIP (obstructive sleep apnea) Tobacco abuse, in remission Chief Complaint NUCALA NUCALA 6 M FU NUCALA SCREENING Acute NUCALA Reason for Visit Asthma-COPD overlap syndrome PHILIP (obstructive sleep apnea) Tobacco abuse, in remission Shortness of breath Wheezing Chief Complaint NUCALA 6 M FU NUCALA SCREENING Acute NUCALA CONCERN FOR SINUS INFECTION NUCALA Reason for Visit Asthma-COPD overlap syndrome HPILIP (obstructive sleep apnea) Tobacco abuse, in remission Shortness of breath Wheezing Chief Complaint NUCALA SCREENING Acute NUCALA CONCERN FOR SINUS INFECTION NUCALA NUCALA Reason for Visit Shortness of breath Wheezing Chief Complaint Acute NUCALA CONCERN FOR SINUS INFECTION NUCALA NUCALA 6 M FU NUCALA Reason for Visit Shortness of breath Wheezing Asthma-COPD overlap syndrome Tobacco abuse, in remission Chief Complaint Admit Date RESCHEDULED 6 M FU March 12, 2024 1 2:29pm NUCALA March 21, 2024 11:59am NUCALA April 25, 2024 1 2:19pm NUCALA July 04, 2024 11: 29am Reason for Visit Admit Date Asthma-COPD overlap syndrome March 12:29pm PHILIP (obstructive sleep apnea) March 122023 12:29pm Tobacco abuse, in remission March 12:29pm Chief Complaint Admit Date NUCALA July 04, 2024 11: 29am 6 M FU September 10, 2024 1:33p m FASENRA September 10, 2024 2:23p m Reason for Visit Admit Date Asthma-COPD overlap syndrome September 10, 2 025 1:33pm Tobacco abuse, in remission September 10 1:33pm Reason for Visit Admit Date Asthma-COPD overlap syndrome September 10, 2 025 1:33pm PHILIP (obstructive sleep apnea) September 10, 2024 1:33pm Tobacco abuse, in remission September 10 1:33pm Family History No Family History Records Found Relationship Condition Age at Onset Recorded Date/T ban mother Malignant neoplasm Unknown father Pulmonary emphysema Unknown sister Diabetes mellitus Unknown Coronary artery disease Unknown sister Cardiac disease Unknown brother Respiratory abnormality Unknown Malignant neoplasm Unknown Relationship Condition Age at Onset Recorded Date/T ban mother Malignant neoplasm Unknown father Pulmonary emphysema Unknown sister Diabetes mellitus Unknown Coronary artery disease Unknown sister Cardiac disease Unknown brother Respiratory abnormality Unknown Malignant neoplasm of colon Unknown Advance Directives No Advanced Directives Records Found Advance Directive Response Recorded Date/ Time Living Will No April 05, 12:02am Power of Title I Math Tutor No April 05, 2021 12:02am Advance Directive Response Recorded Date/ Time Living Will No April 04, 021 11:02pm Power of Title I Math Tutor No April 04, 2021 11:02pm Advance Directive Response Recorded Date/ Time Living Will No December 15 023 7:23am Power of Title I Math Tutor No December 15, 2022 7:23am Advance Directive Response Recorded Date/ Time Living Will No December 15 023 6:23am Power of Title I Math Tutor No December 15, 2022 6:23am Advance Directive Response Recorded Date/ Time Living Will No December 15 023 7:23am Do you have a Healthcare Power of Title I Math Tutor? No December 15, 2022 7:23am Summary Purpose Additional Source Comments Goals (unrecognized section and content) Goals may be documented in a n alternate sectionGoals may be documented in an alternate sectionGoals may be documented in an alternate sectionGoals may be documented in an alternate sectionGoals may be documented in an alternate sectionGoals may be documented in an alternate sectionGoals may be documented in an alternate sectionGoals may be documented in an alternate sectionGoals may be documented in an alternate sectionGoals may be documented in an alternate sectionGoals may be documented in an alternate sectionGoals may be documented in an alternate sectionGoals may be documented in an alternate sectionGoals may be documented in an alternate sectionGoals may be documented in an alternate sectionGoals may be documented in an alternate sectionGoals may be documented in an alternate sectionGoals may be documented in an alternate sectionGoals may be documented in an alternate sectionGoals may be documented in an alternate sectionGoals may be documented in an alternate sectionGoals may be documented in an alternate sectionGoals may be documented in an alternate sectionGoals may be documented in an alternate sectionGoals may be documented in an alternate sectionGoals may be documented in an alternate sectionGoals may be documented in an alternate sectionGoals may be documented in an alternate section Care Teams (unrecognized sec tion and content) Team Status: Active Member Role Status Dates Dr. Kamilah Patel MD Family Provider Active Dr. Kamilah Patel MD Primary Care Provider Active Team Status: Inactive Member Role Status Dates Dr. Kamilah Patel MD Primary Care Provider, Referrin g Provider Active Catracho POSADA PA Attending Provider Active Team Status: Inactive Member Role Status Dates Dr. Kamilah Patel MD Primary Care Provider Active Dr. Anthony Jalloh DO Attending Provider Active Team Status: Inactive Member Role Status Dates Dr. Kamilah Patel MD Primary Care Provider Active Catracho POSADA PA Attending Provider Active Team Status: Inactive Member Role Status Dates Dr. Kamilah Patel MD Primary Care Provider Active Cathie De Jesus BRAKE RIDER, BRAKE RIDER-C Attending Provider, Referrin g Provider Active Team Status: Inactive Member Role Status Dates Dr. Kamilah Patel MD Primary Care Provider, Referrin g Provider Active Cathie De Jesus BRAKE RIDER, BRAKE RIDER-C Attending Provider Active Team Status: Inactive Member Role Status Dates Dr. Kamilah Patel MD Primary Care Provider Active Dr. Jagdish Day MD Emergency Provider Active Team Status: Inactive Member Role Status Dates Dr. Kamilah Patel MD Primary Care Provider Active Dr. Jagdish Day MD Attending Provider, Emergency Pro vider Active Team Status: Inactive Member Role Status Dates Dr. Kamilah Patel MD Primary Care Provider, Referrin g Provider Active Dr. Anthony Jalloh DO Attending Provider Active Team Status: Inactive Member Role Status Dates Dr. Kamilah Patel MD Primary Care Provider Active Dr. Keyonna Rivera MD Attending Provider, Referring Pr ovider Active Team Status: Active Member Role Status Dates Dr. Naomi Whyte DO Primary Care Provider Active Team Status: Inactive Member Role Status Dates Dr. Naomi Whyte DO Primary Care Provider Active Start: March 12, 2024 End: March 12, 2024 Dr. Naomi Whyte DO Referring Provider Active St art: March 12, 2024 End: March 12, 2024 Cathie De Jesus BRAKE RIDER, BRAKE RIDER-C Attending Provider Active Start: March 12, 2024 End: March 12, 2024 Team Status: Inactive Member Role Status Dates Dr. Naomi Whyte DO Primary Care Provider Active Start: March 21, 2024 End: March 21, 2024 Cathie De Jesus NP, BRAKE RIDER-C Attending Provider Active Start: March 21, 2024 End: March 21, 2024 Cathie De Jesus NP, BRAKE RIDER-C Referring Provider Active Start: March 21, 2024 End: March 21, 2024 Team Status: Inactive Member Role Status Dates Dr. Naomi Whyte DO Primary Care Provider Active Start: April 25, 2024 End: April 25, 2024 Cathie De Jesus BRAKE RIDER, BRAKE RIDER-C Attending Provider Active Start: April 25, 2024 End: April 25, 2024 Cathie De Jesus BRAKE RIDER, BRAKE RIDER-C Referring Provider Active Start: April 25, 2024 End: April 25, 2024 Team Status: Inactive Member Role Status Dates Dr. Naomi Whyte DO Primary Care Provider Active Start: July 04, 2024 End: July 04, 2024 Cathie De Jesus NP, BRAKE RIDER-C Attending Provider Active Start: July 04, 2024 End: July 04, 2024 Cathie De Jesus NP, BRAKE RIDER-C Referring Provider Active Start: July 04, 2024 End: July 04, 2024 Team Status: Inactive Member Role Status Dates Dr. Naomi Whyte DO Primary Care Provider Active Start: September 10, 2024 End: September 10, 2024 Dr. Naomi Whyte DO Referring Provider Active St art: September 10, 2024 End: September 10, 2024 Cathie De Jesus BRAKE RIDER, BRAKE RIDER-C Attending Provider Active Start: September 10, 2024 End: September 10, 2024 Team Status: Active Member Role Status Dates Dr. Naomi Whyte DO Primary Care Provider Active Start: September 10, 2024 Cathie De Jesus NP, BRAKE RIDER-C Attending Provider Active Start: September 10, 2024 Cathie De Jesus NP, BRAKE RIDER-C Referring Provider Active Start: September 10, 2024 Team Status: Inactive Member Role Status Dates Dr. Naomi Whyte DO Primary Care Provider Active Start: September 10, 2024 End: September 10, 2024 Cathie De Jesus BRAKE RIDER, BRAKE RIDER-C Attending Provider Active Start: September 10, 2024 End: September 10, 2024 Cathie De Jesus BRAKE RIDER, BRAKE RIDER-C Referring Provider Active Start: September 10, 2024 End: September 10, 2024 INFORMATION SOURCE (unrecogn ized section and content) DATE CREATED AUTHOR 10/17/2024 [facility] FOR RECORDS PERTAINING TO PATIENTS WHO ARE [...] BE BASED ON THE PRIMARY CLINICAL RECORDS. [facility] [employer] [facility]. provides no warranty or guarantee of the accuracy or completeness of information in this document.
== END 2024-10-17 23:59 | disposition home or self-care (01) ==
LOC: MEDOUTP 13:14
PROVIDERS: PCP Family Medicine; Referring Provider Nurse Practitioner Acute Care; Visit Provider Nurse Practitioner Acute Care
DX: J45.50 Severe persistent asthma, uncomplicated (principal)
CPT/HCPCS: 96372; J2182

== ENCOUNTER → 2024-10-17 | Outpatient (CLI) | payer MEDICARE, OTHER, SELFPAY ==
[2024-10-17 17:48] LABS: Hematocrit 41.7 % (37-47); Hemoglobin 13.6 g/dL (12.0-15.0); Immature Granulocytes Count 0.080 X10^3/uL (0.0-0.0); Mean Corp Hgb Conc 32.6 g/dL (32-36); Mean Corpuscular Volume 90.3 fL (81-99); Mean Platelet Vol. 9.3 fl (6.2-12.0); NRBC Flagged by Analyzer 0 % (0-5); Platelet Count 345 K/mm3 (150-450); RBC Distribution Width CV 13.2 % (11.6-14.6); RBC Distribution Width SD 43.0 fl (35.1-43.9); Red Blood Count 4.62 M/mm3 (4.2-5.4); White Blood Count 7.4 K/mm3 (4.4-11.0)
[2024-10-17 18:28] LABS: AST(SGOT) 18 U/L (<=31); Alanine Aminotransfer ALT/SGPT 23 U/L (<=34); Albumin, Serum 4.2 g/dL (3.4-4.8); Alkaline Phosphatase 98 U/L (35-104); Anion Gap 13 (5-15); BUN 11 mg/dL (4-19); BUN/Creat Ratio 9.6 RATIO (10-20); Calcium,Total 9.4 mg/dL (7.6-11.0); Carbon Dioxide 18.8 mmol/L (21.0-32.0); Chloride 106 mmol/L (98-108); Cholesterol 285 mg/dL (<=200); Globulin 2.9 g/dL (2.2-4.2); Glucose 89 mg/dL (70-99); Low Density Lipoprotein Calc. 196 mg/dL; Magnesium 2.3 mg/dL (1.5-2.2); Potassium 4.1 mmol/L (3.3-5.1); Triglycerides 108 mg/dL; Very Low Density Lipoprotein 22 mg/dL (5-40); Vitamin B12 357 pg/mL (180-914); cholesterol:hdl ratio screen 4.20
== END | disposition home or self-care (01) ==
LOC: BFHLAB 14:04
PROVIDERS: PCP Family Medicine; Visit Provider Family Medicine
DX: E78.5 Hyperlipidemia, unspecified (principal); R25.2 Cramp and spasm; E53.8 Deficiency of other specified B group vitamins; E83.42 Hypomagnesemia; D64.9 Anemia, unspecified; Z51.81 Encounter for therapeutic drug level monitoring
CPT/HCPCS: 36415; 80053; 80061; 82607; 83735; 85025

== ENCOUNTER → 2024-10-24 | Outpatient (CLI) | payer MEDICARE, OTHER, SELFPAY ==
--- OUTSIDE RECORDS SUMMARY | 2024-10-24 06:56 | XMS RPT_ITS | CCD ---
Author Organization [facility] CliniSymd Care Team Providers Care Automatic Wheel Line Operator Name Role Phone Yensho CLOUD ADMINISTRATOR, Brisa A Unavailable Unavailab le Marie CLOUD ADMINISTRATOR, Kristen Anabel Unavailable Unavaila ble Yensho CLOUD ADMINISTRATOR, Brisa A Unavailable Unavailab le Tod CLOUD ADMINISTRATOR, Leilani N Unavailable Unavailab le Tod CLOUD ADMINISTRATOR, Leilani N Unavailable Unavailab le Cogar CLOUD ADMINISTRATOR, Mariel N Unavailable [phone] Cogar CLOUD ADMINISTRATOR, Mariel N Unavailable [phone] Dr. Kamilah Patel Primary Care Provider [phone] Dr. Kamilah Patel Referring Provider [phone] SWETHA Caballero Attending Provider SWETHA Vargas Attending Provider Neal CORRESPONDENCE SCHOOL TEACHER, CORRESPONDENCE SCHOOL TEACHER-C Cathie Attending Provider [phone] Dr. Kamilah Patel Primary Care Provider Dr. Kamilah Patel Referring Provider Neal CORRESPONDENCE SCHOOL TEACHER, CORRESPONDENCE SCHOOL TEACHER-C Cathie Referring Provider Dr. Kamilah Patel Primary Care Provider [phone] Dr. Kamilah Patel Primary Care Provider Dr. Kamilah Patel Referring Provider [phone] SWETHA Caballero Attending Provider Dr. Kamilah Patel Primary Care Provider Dr. Kamilah Patel Referring Provider [phone] SWETHA Caballero Attending Provider Dr. Anthony Jalloh Attending Provider Dr. Kamilah Patel Primary Care Provider [phone] Kamilah Patel Referring Provider SWETHA Caballero Attending Provider Dr. Kamilah Patel Primary Care Provider [phone] Kamilah Patel Referring Provider Dr. Kamilah Patel Primary Care Provider [phone] Kamilah Patel Referring Provider Neal CORRESPONDENCE SCHOOL TEACHER, CORRESPONDENCE SCHOOL TEACHER-C Cathie Attending Provider [phone] Dr. Kamilah Patel Primary Care Provider [phone] Kamilah Patel Referring Provider Dr. Anthony Jalloh Attending Provider Neal CORRESPONDENCE SCHOOL TEACHER, CORRESPONDENCE SCHOOL TEACHER-C Cathie Attending Provider [phone] SWETHA Caballero Attending Provider Dr. Kamilah Patel Primary Care Provider [phone] Kamilah Patel Referring Provider Dr. Kamilah Patel Primary Care Provider [phone] Kamilah Patel Referring Provider Neal CORRESPONDENCE SCHOOL TEACHER, CORRESPONDENCE SCHOOL TEACHER-C Cathie Attending Provider SWETHA Caballero Attending Provider Dr. Naomi Whyte DO Primary Care Provider [phone] Naomi Whyte DO Referring Provider Neal CORRESPONDENCE SCHOOL TEACHER-CCathie Attending Provider Neal CORRESPONDENCE SCHOOL TEACHER-CCathie Referring Provider Dr. Naomi Whyte DO Primary Care Provider De Jesus CORRESPONDENCE SCHOOL TEACHER-C, Cathie Attending Provider De Jesus CORRESPONDENCE SCHOOL TEACHER-C, Cathie Referring Provider Dr. Naomi Whyte DO Referring Provider Dr. Naomi Whyte DO Attending Provider [phone] De Jesus CORRESPONDENCE SCHOOL TEACHER, Cathie Referring Unavailable Malys, Naomi Primary Care Unavailable De Jesus CORRESPONDENCE SCHOOL TEACHER, Cathie Attending Unavailable Malys, Naomi Primary Care Unavailable Malys, Naomi Referring Unavailable De Jesus CORRESPONDENCE SCHOOL TEACHER, Cathie Attending Unavailable Malys, Naomi Primary Care Unavailable Malys, Naomi Referring Unavailable De Jesus CORRESPONDENCE SCHOOL TEACHER, Cathie Attending Unavailable Angel Patel Attending Unavailable Malys, Naomi Primary Care Unavailable Malys, Naomi Referring Unavailable Staciedel, Kamilah Primary Care Unavailable De Jesus CORRESPONDENCE SCHOOL TEACHER, Cathie Referring Unavailable De Jesus CORRESPONDENCE SCHOOL TEACHER, Cathie Attending Unavailable De Jesus CORRESPONDENCE SCHOOL TEACHER, Cathie Referring Unavailable Malys, Naomi Primary Care Unavailable De Jesus CORRESPONDENCE SCHOOL TEACHER, Cathie Attending Unavailable De Jesus CORRESPONDENCE SCHOOL TEACHER, Cathie Attending Unavailable De Jesus CORRESPONDENCE SCHOOL TEACHER, Cathie Referring Unavailable Malys, Naomi Primary Care Unavailable De Jesus CORRESPONDENCE SCHOOL TEACHER, Cathie Attending Unavailable Malys, Naomi Primary Care Unavailable De Jesus CORRESPONDENCE SCHOOL TEACHER, Cathie Referring Unavailable De Jesus CORRESPONDENCE SCHOOL TEACHER, Cathie Attending Unavailable Malys, Naomi Primary Care Unavailable De Jesus CORRESPONDENCE SCHOOL TEACHER, Cathie Referring Unavailable Malys, Naomi Attending Unavailable Malys, Naomi Primary Care Unavailable Malys, Naomi Primary Care Unavailable De Jesus CORRESPONDENCE SCHOOL TEACHER, Cathie Referring Unavailable De Jesus CORRESPONDENCE SCHOOL TEACHER, Cathie Attending Unavailable Malys, Naomi Primary Care Unavailable De Jesus CORRESPONDENCE SCHOOL TEACHER, Cathie Referring Unavailable De Jesus CORRESPONDENCE SCHOOL TEACHER, Cathie Attending Unavailable De Jesus CORRESPONDENCE SCHOOL TEACHER, Cathie Referring Unavailable De Jesus CORRESPONDENCE SCHOOL TEACHER, Cathie Attending Unavailable Malys, Naomi Primary Care Unavailable De Jesus CORRESPONDENCE SCHOOL TEACHER, Cathie Referring Unavailable Malys, Naomi Primary Care Unavailable De Jesus CORRESPONDENCE SCHOOL TEACHER, Cathie Attending Unavailable De Jesus CORRESPONDENCE SCHOOL TEACHER, Cathie Attending Unavailable Malys, Naomi Primary Care Unavailable De Jesus CORRESPONDENCE SCHOOL TEACHER, Cathie Referring Unavailable Malys, Naomi Primary Care Unavailable De Jesus CORRESPONDENCE SCHOOL TEACHER, Cathie Referring Unavailable De Jesus CORRESPONDENCE SCHOOL TEACHER, Cathie Attending Unavailable Malys, Naomi Primary Care Unavailable De Jesus CORRESPONDENCE SCHOOL TEACHER, Cathie Referring Unavailable De Jesus CORRESPONDENCE SCHOOL TEACHER, Cathie Attending Unavailable De Jesus CORRESPONDENCE SCHOOL TEACHER, Cathie Referring Unavailable De Jesus CORRESPONDENCE SCHOOL TEACHER, Cathie Attending Unavailable Malys, Naomi Primary Care Unavailable Allergies Allergy Classification Reported Allergen(s) Allergy Type Date of Onset Reaction(s) Facility (14 sources) codeine drug allergy 6 vomitting and itching [facility] Work Phone: (14 sources) morphine drug allergy 6 swellling, turns red [facility] Work Phone: (20 sources) Codeine Drug Allergy [address] [facility] (20 sources) Doxycycline Drug Allergy 2 severe headaches and muscle spasms to the chest [facility] (20 sources) Morphine Drug Allergy [address] [facility] (1 source) Codeine Drug Allergy [address] [facility] (1 source) Doxycycline Drug Allergy [address] [facility] (1 source) Morphine Drug Allergy [address] [facility] Rep[facility] Medications Current Medications Medication Drug Class(es) Dates Sig (Normalized) Sig (Original) azithromycin 250 mg oral tablet (20 sources) Macrolide Antimicrobial Start: 08-02-2023 End: 08-12-2024 take 1 tablet by mouth once Azithromycin 250 mg tablet Active 250 mg PO every Sunday, Sunday, and SundayAugust 12, 2024 2:30pm Start: 04-06-2021 End: 07-07-2021 Azithromycin 250 mg tablet Discontinued 250 mg PO daily 6 0 April 06, 2021 1:00am July 07, 2021 10:04am 2 tablets today, then 1 tablet daily on days 2 through 5 Start: 05-12-2018 End: 07-09-2018 take 2-5 tablets by mouth once daily Azithromycin (Zithromax Z-Atrem) 250 mg tablet Discontinued 0 PO .COMPLEX 6 0 July 03, 2018 12:00am July 09, 2018 11:07am take 500 mg today (day 1), then 250 mg for 4 days (days 2-5) PO Start: 09-07-2017 End: 02-04-2018 take 1 tablet by mouth once daily Azithromycin 250 mg tablet Discontinued 250 mg PO daily 6 0 January 15, 2018 12:00am February 04, 2018 12:45pm clopidogrel 75 mg oral tablet (20 sources) P2Y12 Platelet Inhibitor Start: 10-23-2015 End: 03-12-2017 take 1 tablet by mouth once daily Clopidogrel 75 MG tablet Active 75 mg PO DAILY Graciela 16th, 2016 12:00am Disability Placard (20 sources) Start: 01-04-2021 Disability Jason card Active 0 .Route .MEDSUPPLY 1 0 January 04, 2021 11:30am chronic respiratory distress J96.10 expires 12/10/2025 Start: 01-04-2021 Disability Jason card Active 0 .Route .MEDSUPPLY 1 January 04, 2021 10:30am expires 12/10/2025 Start: 01-04-2021 Disability Jason card Active 0 .Route .MEDSUPPLY 1 January 04, 2021 11:30am expires 12/10/2025 Start: 12-10-2020 End: 01-04-2021 Disability Placard Discontin ued 0 .Route .MEDSUPPLY 1 0 December 10, 2020 12:02pm January 04, 2021 11:33am chronic respiratory distress J96.10 expires 12/10/2025 Start: 12-10-2020 End: 01-04-2021 Disability [...] Placard Discontin ued 0 .Route .MEDSUPPLY 1 0 November 23, 2020 12:00am November 23, 2025 12:00am December 10, 2020 12:03pm chronic respiratory distress J96.10 expires 11/23/2025 Start: 11-23-2020 End: 12-10-2020 Disability [...] 2020 12:03pm expires 11/23/2025 168 hr estradiol 0.27561 mg/hr transdermal system (9 sources) Estrogen Start: 04-20-2023 Estradiol 0.02 5 mg/24 hr patch weekly Active 1 NMA TD EVERY WEEK April 20, 2023 1:00am Start: 04-20-2023 apply 1 dose transde rmal route every week Estradiol Active 1 PATCH TD EVERY WEEK April 20, 2023 1:00am Yjpzsaglipp-Kphylcihu-Ufpmqf er (20 sources) Anticholinergic, Corticosteroid, beta2-Adrenergic Agonist Start: 04-20-2023 Jmipbacblnu-Axiewooeg-Vtxnda er (Trelegy Ellipta) 100-62.5-25 mcg blister with device Active 1 NMA INHALATION DAILY April 20, 2023 1:00am Start: 04-20-2023 Fluticasone-Um eclidin-Vilanter (Trelegy Ellipta) 100-62.5-25 mcg blister with device Active 1 INH INHALATION DAILY April 20, 2023 1:00am Start: 04-20-2023 Fluticasone-Um eclidin-Vilanter (Trelegy Ellipta) 100-62.5-25 mcg blister with device Active 1 INH INHALATION DAILY April 20, 2023 12:00am Start: 08-01-2022 End: 11-02-2022 Zrddjwbqzzg-Enjqzyera-Sabvca er (Trelegy Ellipta) 100-62.5-25 mcg blister with device Discontinued 1 NMA INHALATION daily 60 11 August 01, 2022 8:27am November 02, 2022 3:14pm Chronic obstructive pulmonary disease, unspecified administer at approximately the same time(s) each day Start: 08-01-2022 End: 11-02-2022 Lcfpugmdscd-Tobzoewac-Qdzdqu er (Trelegy Ellipta) 100-62.5-25 mcg blister with device Discontinued 1 NMA INHALATION daily 60 August 01, 2022 8:27am November 02, 2022 3:14pm administer at approximately the same time(s) each day Start: 08-01-2022 End: 11-02-2022 Itpjnwhievj-Hkfsmtjdw-Cswvvy er (Trelegy Ellipta) 100-62.5-25 mcg blister with device Discontinued 1 INH INHALATION daily August 01, 2022 7:27am November 02, 2022 2:14pm administer at approximately the same time(s) each day Start: 08-01-2022 End: 11-02-2022 Cpgemrnezdr-Nphoveozx-Xeficz er (Trelegy Ellipta) 100-62.5-25 mcg blister with device Discontinued 1 INH INHALATION daily August 01, 2022 8:27am November 02, 2022 3:14pm administer at approximately the same time(s) each day Start: 08-01-2022 Fluticasone-Um eclidin-Vilanter (Trelegy Ellipta) 100-62.5-25 mcg blister with device Active 1 INH INHALATION daily August 01, 2022 8:27am administer at approximately the same time(s) each day Start: 01-30-2022 End: 08-01-2022 Dlpvkvqydvr-Xyakaxqwj-Ppwrzi er (Trelegy Ellipta) 100-62.5-25 mcg blister with device Discontinued 1 NMA INHALATION daily 60 January 30, 2022 8:32am August 01, 2022 8:27am Chronic obstructive pulmonary disease, unspecified administer at approximately the same time(s) each day Start: 01-30-2022 End: 08-01-2022 Sstgmvqmoie-Oornuheyr-Ymcjwx er (Trelegy Ellipta) 100-62.5-25 mcg blister with device Discontinued 1 NMA INHALATION daily January 30, 2022 8:32am August 01, 2022 8:27am administer at approximately the same time(s) each day Start: 01-30-2022 End: 08-01-2022 Erdchqrllaz-Yxuonyuua-Gwjrng er (Trelegy Ellipta) 100-62.5-25 mcg blister with device Discontinued 1 INH INHALATION daily January 30, 2022 7:32am August 01, 2022 7:27am administer at approximately the same time(s) each day Start: 01-30-2022 End: 08-01-2022 Ycyvueacuta-Eimejthin-Tpkogo er (Trelegy Ellipta) 100-62.5-25 mcg blister with [...] time(s) each day Start: 07-07-2021 End: 01-30-2022 Cepjtfbulbv-Cgapgdmru-Bkaorb er (Trelegy Ellipta) 100-62.5-25 mcg blister with device Discontinued 1 NMA INHALATION daily 60 July 07, 2021 10:35am January 30, 2022 8:32am Chronic obstructive pulmonary disease, unspecified administer at approximately the same time(s) each day Start: 07-07-2021 End: 01-30-2022 Gdsfevwkrus-Nftjvfcav-Ymbjec er (Trelegy Ellipta) 100-62.5-25 mcg blister with device Discontinued 1 NMA INHALATION daily July 07, 2021 10:35am January 30, 2022 8:32am administer at approximately the same time(s) each day Start: 07-07-2021 End: 01-30-2022 Xiplrgcelvg-Bkyzzqshd-Yabvsx er (Trelegy Ellipta) 100-62.5-25 mcg blister with device Discontinued 1 INH INHALATION daily 60 July 07, 2021 10:35am January 30, 2022 8:32am administer at approximately the same time(s) each day Start: 07-07-2021 End: 01-30-2022 Ohkcezkwgyy-Lzvhxmmfw-Auaory er (Trelegy Ellipta) 100-62.5-25 mcg blister with device Discontinued 1 INH INHALATION daily 60 July 07, 2021 9:35am January 30, 2022 7:32am administer at approximately the same time(s) each day Start: 07-07-2021 Fluticasone-Um eclidin-Vilanter (Trelegy Ellipta) 100-62.5-25 mcg blister with device Active 1 INH INHALATION daily 60 July 07, 2021 10:35am administer at approximately the same time(s) each day Start: 01-04-2021 End: 07-07-2021 Zwtekpmqqid-Tejypbjdi-Gujnmi er (Trelegy Ellipta) 100-62.5-25 mcg blister with device Discontinued 1 NMA INHALATION daily 60 January 04, 2021 11:31am July 07, 2021 10:35am Chronic obstructive pulmonary disease, unspecified administer at approximately the same time(s) each day Start: 01-04-2021 End: 07-07-2021 Mbuuhdacggl-Rleedugug-Ehqqde er (Trelegy Ellipta) 100-62.5-25 mcg blister with device Discontinued 1 NMA INHALATION daily January 04, 2021 11:31am July 07, 2021 10:35am administer at approximately the same time(s) each day Start: 01-04-2021 End: 07-07-2021 Chrhdytnzyv-Fclysjkbr-Cvmkua er (Trelegy Ellipta) 100-62.5-25 mcg blister with device Discontinued 1 INH INHALATION daily January 04, 2021 10:31am July 07, 2021 9:35am administer at approximately the same time(s) each day Start: 01-04-2021 End: 07-07-2021 Vjaesnlboqi-Tslagenbb-Sybxnj er (Trelegy Ellipta) 100-62.5-25 mcg blister with device Discontinued 1 INH INHALATION daily 60 January 04, 2021 11:31am July 07, 2021 10:35am administer at approximately the same time(s) each day Start: 10-15-2020 End: 01-04-2021 Teklscfdljw-Giafqnlgc-Zhnurr er (Trelegy Ellipta) 100-62.5-25 mcg blister with device Discontinued 1 NMA INHALATION daily 60 3 October 15, 2020 2:54pm January 04, 2021 11:33am Chronic obstructive pulmonary disease, unspecified administer at approximately the same time(s) each day Start: 10-15-2020 End: 01-04-2021 Vtiqynyfuaq-Dczlzcckv-Svobhq er (Trelegy Ellipta) 100-62.5-25 mcg blister with device Discontinued 1 NMA INHALATION daily 60 October 15, 2020 2:54pm January 04, 2021 11:33am administer at approximately the same time(s) each day Start: 10-15-2020 End: 01-04-2021 Ktlzehtymhh-Jfzlwafpy-Wsabhv er (Trelegy Ellipta) 100-62.5-25 mcg blister with device Discontinued 1 INH INHALATION daily 60 October 15, 2020 1:54pm January 04, 2021 10:33am administer at approximately the same time(s) each day Start: 10-15-2020 End: 01-04-2021 Zbenpbzbrpd-Cllxmjzfm-Akpfwh er (Trelegy Ellipta) 100-62.5-25 mcg blister with device Discontinued 1 INH INHALATION daily 60 October 15, 2020 2:54pm January 04, 2021 11:33am administer at approximately the same time(s) each day Start: 10-15-2020 End: 10-15-2020 Fyugjdttkze-Pvzblhbui-Zbjrpj er (Trelegy Ellipta) 100-62.5-25 mcg blister with device Discontinued 1 NMA INHALATION daily 60 3 October 15, 2020 2:27pm October 15, 2020 2:54pm Chronic obstructive pulmonary disease, unspecified administer at approximately the same time(s) each day Start: 10-15-2020 End: 10-15-2020 Oxupidnrsjq-Wwfitjpeh-Uvqost er (Trelegy Ellipta) 100-62.5-25 mcg blister with device Discontinued 1 NMA INHALATION daily 60 October 15, 2020 2:27pm October 15, 2020 2:54pm administer at approximately the same time(s) each day Start: 10-15-2020 End: 10-15-2020 Zhlbygicpye-Bytfxujpj-Mmzpyx er (Trelegy Ellipta) 100-62.5-25 mcg blister with device Discontinued 1 INH INHALATION daily 60 October 15, 2020 1:27pm October 15, 2020 1:54pm administer at approximately the same time(s) each day Start: 10-15-2020 End: 10-15-2020 Blypjofyyyq-Ojpveivgb-Udbhur er (Trelegy Ellipta) 100-62.5-25 mcg blister with device Discontinued 1 INH INHALATION daily 60 October 15, 2020 2:27pm October 15, 2020 2:54pm administer at approximately the same time(s) each day Start: 02-16-2020 End: 05-18-2020 Wdibqmogkbq-Unmgehptl-Btaedz er (Trelegy Ellipta) 100-62.5-25 mcg blister with device Discontinued 1 INH INHALATION daily February 16, 2020 4:13pm May 18, 2020 11:44am administer at approximately the same time(s) each day Start: 02-16-2020 End: 05-18-2020 Xrgeetvnpip-Mulnfqmdc-Hjdtsq er (Trelegy Ellipta) 100-62.5-25 mcg blister with device Discontinued 1 NMA INHALATION daily 60 3 February 16, 2020 1:00am May 18, 2020 11:44am Chronic obstructive pulmonary disease, unspecified administer at approximately the same time(s) each day Start: 02-16-2020 End: 05-18-2020 Bxqbqhrhjop-Oyguznlay-Hfpftt er (Trelegy Ellipta) 100-62.5-25 mcg blister with device Discontinued 1 NMA INHALATION daily 60 February 16, 2020 1:00am May 18, 2020 11:44am administer at approximately the same time(s) each day Start: 02-16-2020 End: 05-18-2020 Lvihjvctejm-Qtzvsmzyn-Utcmig er (Trelegy Ellipta) 100-62.5-25 mcg blister with device Discontinued 1 INH INHALATION daily February 16, 2020 12:00am May 18, 2020 10:44am administer at approximately the same time(s) each day Start: 02-16-2020 End: 05-18-2020 Kqokjwjqduz-Ikbidcoin-Moenth er (Trelegy Ellipta) 100-62.5-25 mcg blister with device Discontinued 1 INH INHALATION daily February 16, 2020 1:00am May 18, 2020 11:44am administer at approximately the same time(s) each day Start: 10-31-2019 End: 01-23-2020 Goqinakmbfu-Ndpcvveag-Tlbheh er (Trelegy Ellipta) 100-62.5-25 mcg blister with device Discontinued 1 NMA INHALATION DAILY 1 October 31, 2019 2:30pm January 23, 2020 2:32pm Start: 10-31-2019 End: 01-23-2020 Hgpxlindwst-Knfguwlwy-Agbshl er (Trelegy Ellipta) 100-62.5-25 mcg blister with device Discontinued 1 NMA INHALATION DAILY October 31, 2019 2:30pm January 23, 2020 2:32pm Start: 10-31-2019 End: 01-23-2020 Deykagfdsnl-Dyxnyofit-Ebcnou er (Trelegy Ellipta) 100-62.5-25 mcg blister with device Discontinued 1 INH INHALATION DAILY October 31, 2019 1:30pm January 23, 2020 1:32pm Start: 10-31-2019 End: 01-23-2020 Wxbkrssbzqo-Vgrodovkl-Ndcsyq er (Trelegy Ellipta) 100-62.5-25 mcg blister with device Discontinued 1 INH INHALATION DAILY October 31, 2019 2:30pm January 23, 2020 2:32pm Start: 10-03-2018 End: 10-31-2019 Uurminmfyou-Vhkptvmwr-Xaukul er (Trelegy Ellipta) 100-62.5-25 mcg blister with device Discontinued 1 NMA INHALATION DAILY 1 6 October 03, 2018 12:00am October 31, 2019 2:31pm Start: 10-03-2018 End: 10-31-2019 Xzlpdroydsy-Frjodhyrl-Varxbn er (Trelegy Ellipta) 100-62.5-25 mcg blister with device Discontinued 1 INH INHALATION DAILY 1 October 03, 2018 12:00am October 31, 2019 2:31pm Start: 09-25-2018 End: 10-03-2018 Brvtvzpwrgx-Pfgfrqqnu-Wyejat er (Trelegy Ellipta) 100-62.5-25 mcg blister with device Discontinued 1 NMA INHALATION DAILY 60 September 25, 2018 12:40pm October 03, 2018 1:40pm Start: 09-25-2018 End: 10-03-2018 Xrxbcgnnhxy-Oycfabjjj-Axpnxm er (Trelegy Ellipta) 100-62.5-25 mcg blister with device Discontinued 1 NMA INHALATION DAILY 60 September 25, 2018 12:40pm October 03, 2018 1:40pm Start: 09-25-2018 End: 10-03-2018 Gampxwmwrzs-Liytdbpep-Coffvo er (Trelegy Ellipta) 100-62.5-25 mcg blister with device Discontinued 1 INH INHALATION DAILY 60 September 25, 2018 11:40am October 03, 2018 12:40pm Start: 09-25-2018 End: 10-03-2018 Badrfdixjyy-Cchrheabq-Mbbgfo er (Trelegy Ellipta) 100-62.5-25 mcg blister with device Discontinued 1 INH INHALATION DAILY 60 September 25, 2018 12:40pm October 03, 2018 1:40pm Start: 08-06-2018 End: 09-25-2018 Fxodizunhey-Pevfmwaog-Mqwkbn er (Trelegy Ellipta) 100-62.5-25 mcg blister with device Discontinued 1 NMA INHALATION DAILY 28 August 06, 2018 12:00am September 25, 2018 12:41pm Start: 08-06-2018 End: 09-25-2018 Zykikcdducd-Osavavmcb-Gkdrsc er (Trelegy Ellipta) 100-62.5-25 mcg blister with [...] One tablet by mouth daily FLUVOXAMINE MALEATE [id number] Brisa Ball LPN latanoprost 0.05 mg/ml ophthalmic solution (4 sources) Prostaglandin Analog Start: 09-10-2024 Latanoprost 0.005 % drops Active 1 NMA OPHTHALMIC AT BEDTIME September 10, 2024 12:00am LORazepam 1 mg oral tablet (9 sources) Benzodiazepine Start: 09-10-2024 take 1 tablet [...] Discontinued 100 mg SC every 4 weeks 04 20April 24, 2019 1:00am January 19, 2020 9:02am Start: 04-21-2019 End: 04-24-2019 Mepolizumab (Nucala) 100 mg/ mL auto-injector Discontinued 300 mg SC every 4 weeks 04 19April 21, 2019 1:00am April 24, 2019 3:40pm Chronic obstructive pulmonary disease, unspecified administer as three 100 mg injections at [...] Start: 07-29-2019 spacer Active 0 .Route .MEDSUPPLY 1 July 29, 2019 12:00am As directed Start: 07-29-2019 spacer Active 0 .Route .MEDSUPPLY July 28, 2019 11:00pm As directed Start: 07-29-2019 spacer Active 0 .Route .MEDSUPPLY July 29, 2019 12:00am As directed Completed/Discontinued Medications Medication Drug Class(es) Dates Sig (Normalized) Sig (Original) acapella (20 sources) Start: 01-18-2018 End: 02-25-2018 acapella Discontinued January 18, 2018 1:38pm February 25, 2018 12:52pm As directed Start: 01-18-2018 End: 02-25-2018 acapella Discontinued 1 0 Oc tober 2017 12:00am February 25, 2018 12:52pm Bronchiectasis, uncomplicated bronchiectasis As directed Start: 01-18-2018 End: 02-25-2018 acapella Discontinued 1 Octo syed 2017 11:00pm February 25, 2018 11:52am As directed Start: 01-18-2018 End: 02-25-2018 acapella Discontinued 1 Octo syed 2017 12:00am February 25, 2018 12:52pm As directed VWNVLLR-IMPADG-QUWPL PERTUSSIS (2 sources) Inactivated Corynebacterium Diphtheriae Vaccine, Inactivated Clostridium Tetani Vaccine Start: 11-22-2015 End: 01-03-2016 ADACEL 5-2-15.5 LF-MCG/0.5 SUSP [place] 1 dose CPPIHHQ-SBZCTQ-QIOPE PERTUSSIS [id number] Kristen Marie LPN Start: 11-22-2015 ADACEL 5-2-15. 5 LF-MCG/0.5 SUSP [place] 1 dose DOQVOTJ-BTSJVU-LORJZ PERTUSSIS [id number] Brisa Ball CLOUD ADMINISTRATOR [id number] actuat albuterol 0.09 mg/actuat metered dose [...] 01, 2022 8:27am September 10, 2024 2:15pm Lung nodule Solitary pulmonary nodule administer with spacer Start: 01-04-2021 End: 08-01-2022 [...] Albuterol Sulfate Discontinued 2 PUFF INHALATION Q4H October 03, 2018 12:00am November 29, 2018 9:11am administer with spacer Start: 10-24-2017 End: 07-07-2021 Albuterol Sulfate 90 mcg/act uation HFA aerosol inhaler Discontinued 1 - 2 NMA INHALATION EVERY 4 HOURS NEEDED as needed for COPD J44.9 1 October 24, 2017 3:47pm July 07, 2021 10:04am Chronic obstructive pulmonary disease, unspecified Start: 10-24-2017 End: 07-07-2021 take 1 puff(s) by inhalation every four hours as needed Albuterol Sulfate Discontinued 1 - 2 PUFF INHALATION EVERY 4 HOURS NEEDED October 24, 2017 3:47pm July 07, 2021 10:04am Start: 12-02-2015 End: 10-09-2016 take 108 ug by inhalation every four hours as needed PROAIR HFA 108 (90 Base) MCG/ACT AERS INH every 4 hours PRN ALBUTEROL SULFATE [id number] Anthony Jalloh DO Start: 12-02-2015 take 108 ug by inhal ation every four hours as needed PROAIR HFA 108 (90 Base) MCG/ACT AERS INH every 4 hours PRN ALBUTEROL SULFATE [id number] Anthony Jalloh DO Start: 10-23-2015 End: 08-01-2022 take 2.5 mg by inhalation every four hours as needed for wheezing Albuterol Sulfate 2.5 mg /3 mL (0.083 %) solution for nebulization Discontinued 2.5 mg INHALATION EVERY 4 HOURS NEEDED 120 October 24, 2017 4:24pm July 07, 2021 10:14am Chronic obstructive pulmonary disease, unspecified Use q4 hours and PRN for wheezing Start: 10-23-2015 End: 10-24-2017 Albuterol Sulfate 1 INHALER inhaler Discontinued 1 - 2 NMA INHALATION EVERY 4 HOURS NEEDED as needed for Wheezing 1 October 23, 2015 12:00am October 24, 2017 [...] for nebulization Discontinued 3 mL INHALATION Q8H 15 0 July 27, 2018 12:00am August 06, 2018 11:49am Chronic obstructive pulmonary disease, unspecified Start: 07-27-2018 End: 08-06-2018 take 1 mL by inhalation every eight hours Ipratropium-Albuterol Discontinued 3 ML INHALATION Q8H 15 July 27, 2018 12:00am August 06, 2018 11:49am Start: 01-03-2016 End: 10-09-2016 IPRATROPIUM-ALBUTEROL 0.5-2. 5 (3) MG/3ML SOLN INH 1 ampule q4h as needed IPRATROPIUM-ALBUTEROL [id number] Leilani Baron CLOUD ADMINISTRATOR amoxicillin 875 mg / clavulanate 125 mg oral tablet (20 sources) Penicillin-class Antibacterial Start: 04-18-2021 End: 04-28-2021 Amoxicillin-Pot Clavulanate (Augmentin) 875-125 mg tablet Discontinued 1 {tbl} PO Q12H 20 10 0 April 18, 2021 1:00am April 27, 2021 1:00am April 28, 2021 1:01am Acute sinusitis, unspecified Antidepressant (20 sources) Start: 10-23-2015 End: 03-12-2017 [...] One tablet by mouth daily ASPIRIN TBEC [id number] Khai Birmingham MD ASPIRIN TBEC (1 source) Start: 12-30-2015 take 1 tablet by mouth once daily ASPIR-81 TBEC One tablet by mouth daily ASPIRIN TBEC [id number] Khai Birmingham MD atorvastatin 80 mg oral tablet (20 sources) HMG-CoA Reductase Inhibitor Start: 02-25-2018 End: 08-01-2022 take 1 tablet by mouth at bedtime Atorvastatin 80 mg tablet Discontinued 80 mg PO AT BEDTIME 90 90 0 February 25, 2018 1:00am August 01, 2022 8:11am Start: 11-22-2015 End: 10-09-2016 take 1 tablet by mouth once daily at bedtime LIPITOR 80 MG TABS One tablet by mouth daily at bedtime ATORVASTATIN CALCIUM [id number] Brisa Ball CLOUD ADMINISTRATOR budesonide 0.5 mg/ml inhalation suspension (20 sources) Corticosteroid Start: 07-02-2020 End: 10-15-2020 take 1 mg by inhalation twice daily Budesonide 1 mg/2 mL suspension for nebulization Discontinued 1 mg INHALATION TWICE A DAY 60 6 July 02, 2020 12:00am October 15, 2020 2:26pm Chronic obstructive pulmonary disease, unspecified Budesonide-Formo terol (20 sources) Corticosteroid, beta2-Adrenergic Agonist Start: 05-18-2020 End: 07-02-2020 take 1 puff(s) by inhalation twice daily Budesonide-Formot jagdeep (Symbicort) 160-4.5 mcg/actuation HFA aerosol inhaler Discontinued 2 PUFF INHALATION TWICE A DAY 10.2 May 18, 2020 12:03pm July 02, 2020 10:58am Start: 05-18-2020 End: 07-02-2020 Budesonide-Formoterol (Symbi teddy) 160-4.5 mcg/actuation HFA aerosol inhaler Discontinued 2 NMA INHALATION TWICE A DAY 10.2 6 May 18, 2020 1:00am July 02, 2020 [...] mg tablet Discontinued 4 mg PO DAILY 5 0 April 06, 2021 1:00am July 07, 2021 10:04am doxycycline hyclate 100 mg oral capsule (20 sources) Tetracycline-class Drug Start: 05-21-2018 End: 07-03-2018 take 1 capsule by mouth twice daily Doxycycline Hyclate 100 MG capsule Discontinued 100 mg PO TWICE A DAY May 21, 2018 1:00am July 03, 2018 5:06pm Flucelvax Quad 0425-1426 (PF) (flu vac qs 2018(4 yr up)CD(PF)) 60 mcg (15 mcg x (3 sources) Start: 02-04-2018 End: 02-04-2018 inject 15 ug by intramuscular injection once Flucelvax Quad (PF) (flu vac qs 2018(4 yr up)CD(PF)) 60 mcg (15 mcg x Discontinued 60 MCG IM ONCE February 04, 2018 12:23pm February 04, 2018 1:29pm 120 actuat fluticasone propionate 0.22 mg/actuat metered dose inhaler (20 sources) Corticosteroid Start: 02-16-2020 End: 02-16-2020 Fluticasone Propionate (Flovent Hfa) 220 mcg/actuation HFA aerosol inhaler Discontinued 2 NMA INHALATION TWICE A DAY 03 14February 16, 2020 1:00am February 16, 2020 4:13pm administer with spacer Start: 02-16-2020 End: 02-16-2020 take 1 puff(s) by inhalation twice daily Fluticasone Propionate (Flovent Hfa) 220 mcg/actuation HFA aerosol inhaler Discontinued 2 PUFF INHALATION TWICE A DAY February 16, 2020 1:00am February 16, 2020 4:13pm administer with spacer Start: 09-25-2018 End: 10-31-2019 Fluticasone Propionate 50 mcg/actuation spray,suspension Discontinued 2 NMA INTRANASAL DAILY 16 September 25, 2018 12:00am October 31, 2019 [...] MCG/INH AEPB 1 puff daily FLUTICASONE FUROATE-VILANTEROL [id number] Anthony Jalloh DO Start: 11-22-2015 BREO ELLIPTA 2 00-25 MCG/INH AEPB 1 INH one time per kimberly FLUTICASONE FUROATE-VILANTEROL [id number] Brisa Ball LPN Start: 11-22-2015 take 1 puff(s) by in halation once daily BREO ELLIPTA 200-25 MCG/INH AEPB 1 puff daily FLUTICASONE FUROATE-VILANTEROL [id number] Anthony Jalloh DO Start: 11-22-2015 take 1 puff(s) by in halation once daily BREO ELLIPTA 200-25 MCG/INH AEPB 1 puff daily FLUTICASONE FUROATE-VILANTEROL [id number] Anthony Jalloh DO Start: 11-22-2015 take 200-25 ug by in halation once BREO ELLIPTA 200-25 MCG/INH AEPB 1 INH one time per kimberly FLUTICASONE FUROATE-VILANTEROL [id number] Brisa Anisa Lizzy CLOUD ADMINISTRATOR 120 actuat formoterol fumarate 0.0048 mg/actuat / glycopyrrolate 0.009 mg/actuat metered dose inhaler (20 sources) beta2-Adrenergic Agonist Start: 02-16-2020 End: 02-16-2020 Glycopyrrolate-Formoterol (Bevespi Aerosphere) 9-4.8 mcg HFA aerosol inhaler Discontinued 2 NMA INHALATION every day in the morning and in the evening 04 11February 16, 2020 1:00am February 16, 2020 4:13pm [...] release 12hr Discontinued 1200 mg PO Q12H 30 January 18, 2018 12:00am February 25, 2018 [...] mg capsule Discontinued 10 mg PO daily 90 August 01, 2022 8:27am February 14, 2024 2:14pm Asthma-chronic obstructive pulmonary disease overlap syndrome Chronic obstructive pulmonary disease, unspecified methylPREDNISolone 4 mg oral tablet (13 sources) Corticosteroid Start: 01-28-2024 End: 02-14-2024 Methylprednisolone [...] tablet Discontinued 10 mg PO EVERY EVENING 06 10October 31, 2019 2:30pm January 04, 2021 11:33am [...] mg capsule Discontinued 100 mg PO Q12H 10 5 0 February 08, 2022 12:00am February 12, 2022 12:00am February 13, 2022 1:03am must administer with a meal/food Start: 11-09-2021 End: 11-14-2021 take 1 capsule by mouth every twelve hours at mealtime Nitrofurantoin Monohyd/M-Cryst (Macrobid) 100 mg capsule Discontinued 100 mg PO Q12H 10 5 0 November 09, 2021 12:00am November 13, 2021 12:00am November 14, 2021 12:03am must administer with a meal/food Start: 09-10-2020 End: 09-17-2020 take 1 capsule by mouth every twelve hours at mealtime Nitrofurantoin Monohyd/M-Cryst 100 mg capsule Discontinued 1 NMA PO Q12H 14 7 0 September 10, 2020 12:00am September 16, 2020 [...] capsule twice a day NITROFURANTOIN MONOHYD MACRO [id number] Catracho POSADA Start: 10-09-2016 End: 10-16-2016 NITROFURANTOIN MACROCRYSTAL 100 MG CAPS Take 1 capsule every 12 hours NITROFURANTOIN MACROCRYSTAL [id number] Iker POSADA nystatin 469637 unt/ml oral suspension (20 sources) Polyene Antifungal Start: 01-18-2018 End: 02-25-2018 Nystatin 100,000 unit/mL suspension Discontinued 5 mL MUCOUS MEM THREE TIMES A DAY 250 1 January 18, 2018 12:00am February 25, 2018 12:53pm swish and swallow 5 cc three times per day for 10 days Start: 01-18-2018 End: 02-25-2018 Nystatin Discontinued 5 ML M UCOUS MEM THREE TIMES A DAY January 18, 2018 12:00am February 25, 2018 [...] times a day as needed PHENAZOPYRIDINE HCL [id number] Catracho POSADA predniSONE 10 mg oral tablet (20 sources) Start: 08-13-2023 End: 09-10-2024 take 1 tablet by mouth once daily Prednisone 10 mg tablet Discontinued 10 mg PO daily February 14, 2024 1:00am September 10, 2024 1:44pm Start: 07-02-2023 End: 08-13-2023 Prednisone 10 mg tablet Discontinued 10 mg PO daily 30 August 02, 2023 12:00am August 13, 2023 8:45am take 4 tabs for three days, then 3 tabs for three days, then 2 tabs for three days, then 1 tab for 3 days Start: 02-19-2023 End: 04-20-2023 Prednisone 10 mg tablet Discontinued 10 mg PO daily 30 0 February 19, 2023 1:00am April 20, 2023 1:34pm take 4 tabs for three days, then 3 tabs for three days, then 2 tabs for three days, then 1 tab for 3 days Start: 12-15-2022 End: 2023 take 2 tablets by mouth once daily Prednisone 20 mg tablet Discontinued 40 mg PO DAILY 10 5 December 15, 2022 12:00am 2023 2:11pm Acute exacerbation of chronic obstructive pulmonary disease Chronic obstructive pulmonary disease with (acute) exacerbation Start: 12-15-2022 End: 2023 take 40 mg by mouth once daily Prednisone Discontinued 40 MG PO DAILY 10 December 15, 2022 12:00am 2023 2:11pm Start: 10-13-2022 End: 11-02-2022 Prednisone 10 mg tablet Discontinued 10 mg PO daily 30 October 13, 2022 12:00am November 02, 2022 3:15pm take 4 tabs for three days, then 3 tabs for three days, then 2 tabs for three days, then 1 tab for 3 days Start: 08-01-2022 End: 10-13-2022 take 3 tablets by mouth once daily at mealtime Prednisone 20 mg tablet Discontinued 60 mg PO daily 15 August 01, 2022 12:00am October 13, 2022 8:19am administer with food or milk Start: 08-01-2022 End: 10-13-2022 take 60 mg by mouth once daily at mealtime Prednisone Discontinued 60 MG PO daily August 01, 2022 12:00am October 13, 2022 8:19am administer with food or milk Start: 02-09-2020 End: 05-18-2020 Prednisone 10 mg tablet Discontinued 10 mg PO daily 30 0 February 09, 2020 1:00am May 18, 2020 11:44am take 4 tabs for three days, then 3 tabs for three days, then 2 tabs for three days, then 1 tab for 3 days Start: 03-27-2019 End: 07-29-2019 take 3 tablets by mouth once daily at mealtime Prednisone 20 mg tablet Discontinued 60 mg PO daily 15 0 June 10, 2019 3:55pm July 29, 2019 1:44pm administer with food or milk Start: 03-27-2019 End: 07-29-2019 take 60 mg by mouth once daily at mealtime Prednisone Discontinued 60 MG PO daily June 10, 2019 3:55pm July 29, 2019 1:44pm administer with food or milk Start: 10-07-2018 End: 11-29-2018 Prednisone 10 mg tablet Discontinued 10 mg PO daily 30 October 07, 2018 12:00am November 29, 2018 9:11am take 4 tabs for three days, then 3 tabs for three days, then 2 tabs for three days, then 1 tab for 3 days Start: 08-06-2018 End: 09-25-2018 take 2 tablets by mouth once daily Prednisone 20 mg tablet Discontinued 40 mg PO DAILY 10 August 06, 2018 12:00am September 25, 2018 10:52am Start: 08-06-2018 End: 09-25-2018 take 40 mg by mouth once daily Prednisone Discontinued 40 MG PO DAILY August 06, 2018 12:00am September 25, 2018 10:52am Start: 07-09-2018 End: 07-27-2018 Prednisone 10 mg tablet Discontinued 10 mg PO daily 30 July 09, 2018 12:00am July 27, 2018 [...] mg tablet Discontinued 5 mg PO daily 30 February 14, 2024 1:00am September 10, 2024 1:44pm Start: 10-23-2015 End: 03-12-2017 take 1 tablet by mouth once daily Rosuvastatin 20 MG tablet Discontinued 20 mg PO DAILY 30 October 23, 2015 12:00am March 12, 2017 3:32pm PNEUMOCOCCAL 13-FAVIAN CONJ VACC (2 sources) Inactivated Pneumococcal Vaccine Start: 11-22-2015 PREVNAR 13 SUSP Administer 1 dose PNEUMOCOCCAL 13-FAVIAN CONJ VACC [id number] Brisa Ball CLOUD ADMINISTRATOR Start: 11-22-2015 End: 01-03-2016 PREVNAR 13 SUSP Administer 1 dose PNEUMOCOCCAL 13-FAVIAN CONJ VACC [id number] Kristen Marie CLOUD ADMINISTRATOR sulfamethoxazole 800 mg / trimethoprim 160 mg oral tablet (20 sources) Dihydrofolate Reductase Inhibitor Antibacterial, Sulfonamide Antimicrobial Start: 04-04-2021 End: 07-07-2021 Sulfamethoxazole-Trimethopri m (Bactrim Ds) 800-160 mg tablet Discontinued 1 {tbl} PO TWICE A DAY 6 April 04, 2021 1:00am July 07, 2021 10:04am Tiotropium Hudson (20 sources) Anticholinergic Start: 05-18-2020 End: 07-02-2020 take 1 puff(s) by inhalation once daily Tiotropium Hudson (Spiriva Respimat) 2.5 mcg/actuation mist Discontinued 2 PUFF INHALATION daily May 18, 2020 12:05pm July 02, 2020 10:58am Start: 05-18-2020 End: 07-02-2020 take 2.5 ug by inhalation once daily Tiotropium Hudson (Spiriva Respimat) 2.5 mcg/actuation mist Discontinued 2 NMA INHALATION daily 07 13May 18, 2020 1:00am July 02, 2020 10:58am Start: 05-18-2020 End: 07-02-2020 take 2.5 ug by inhalation once daily Tiotropium Hudson (Spiriva Respimat) 2.5 mcg/actuation mist Discontinued 2 NMA INHALATION daily May 18, 2020 1:00am July 02, 2020 10:58am Start: 05-18-2020 End: 07-02-2020 take 1 puff(s) by inhalation once daily Tiotropium Hudson (Spiriva Respimat) 2.5 mcg/actuation mist Discontinued 2 PUFF INHALATION daily May 18, 2020 12:00am July 02, 2020 9:58am Start: 05-18-2020 End: 07-02-2020 take 1 puff(s) by inhalation once daily Tiotropium Hudson (Spiriva Respimat) 2.5 mcg/actuation mist Discontinued 2 PUFF INHALATION daily May 18, 2020 1:00am July 02, 2020 10:58am Start: 02-25-2018 End: 08-06-2018 Tiotropium Hudson 18 mcg ca psule, w/inhalation device Discontinued 1 NMA INHALATION DAILY February 25, 2018 1:00am August 06, 2018 11:49am Start: 12-02-2015 take 1 puff(s) by in halation once daily SPIRIVA HANDIHALER 18 MCG CAPS INH 1 puff daily TIOTROPIUM BROMIDE MONOHYDRATE [id number] Kristen Marie LPN Start: 12-02-2015 take 1 capsule by in halation once daily SPIRIVA HANDIHALER 18 MCG CAPS INH one time per day TIOTROPIUM BROMIDE MONOHYDRATE 52871364949 Brisa Ball LPN Start: 12-02-2015 SPIRIVA HANDIH ALER 18 MCG CAPS 2 puffs daily TIOTROPIUM BROMIDE MONOHYDRATE [id number] Anthony Jalloh DO Start: 12-02-2015 take 1 puff(s) by in halation once daily SPIRIVA HANDIHALER 18 MCG CAPS INH 1 puff daily TIOTROPIUM BROMIDE MONOHYDRATE 73673253517 Kristen Marie LPN Start: 12-02-2015 take 1 capsule by in halation once daily SPIRIVA HANDIHALER 18 MCG CAPS INH one time per day TIOTROPIUM BROMIDE MONOHYDRATE 46032405030 Brisa Ball LPN Start: 12-02-2015 SPIRIVA HANDIH ALER 18 MCG CAPS 2 puffs daily TIOTROPIUM BROMIDE MONOHYDRATE 21863514952 Anthony Jalloh DO Start: 12-02-2015 SPIRIVA HANDIH ALER 18 MCG CAPS 2 puffs daily TIOTROPIUM BROMIDE MONOHYDRATE 86610039643 Anthony Jalloh DO Start: 10-23-2015 End: 08-06-2017 Tiotropium Hudson 1 PUFF in haler Discontinued 1 NMA INHALATION DAILY October 23, 2015 12:00am August 06, 2017 11:13am Start: 10-23-2015 End: 08-06-2017 take 1 puff(s) by inhalation once daily Tiotropium Hudson Discontinued 1 PUFF INHALATION DAILY October 23, 2015 12:00am August 06, 2017 11:13am 30 actuat umeclidinium 0.0625 mg/actuat dry powder inhaler (20 sources) Anticholinergic Start: 08-06-2017 End: 02-25-2018 take 62.5 ug by inhalation once daily Umeclidinium (Incruse Ellipta) 62.5 mcg/actuation blister with device Discontinued 1 NMA INHALATION daily 30 August 06, 2017 12:00am February 25, 2018 12:54pm ZOSTER VACCINE LIVE (2 sources) Start: 11-22-2015 ZOSTAVAX 07704 UNT/0.65ML SUSR Adminiser 1 dose ZOSTER VACCINE LIVE [id number] Brisa Anisa Lizzy NICKERSONN Start: 11-22-2015 End: 01-03-2016 ZOSTAVAX 20365 UNT/0.65ML LONG SR Adminiser 1 dose ZOSTER VACCINE LIVE [id number] Kristen Anabel Marie LPN venlafaxine 75 mg oral tablet (20 sources) Serotonin and Norepinephrine Reuptake Inhibitor Start: 02-25-2018 End: 11-02-2022 take 1 tablet by mouth once daily Venlafaxine 75 mg tablet Discontinued 75 mg PO DAILY 60 30 0 February 25, 2018 1:00am November 02, 2022 3:15pm Start: 12-30-2015 End: 10-09-2016 take 1 tablet by mouth once daily VENLAFAXINE HCL 75 MG TABS One tablet by mouth daily VENLAFAXINE HCL [id number] Leilani Baron LPN Problems Active Problems Problem Classification Problem Date Documented Da te Episodic/Chronic Anxiety disorders (5 sources) Social phobia; Translations: [Social phobia, unspecified] 01-28-2024 Chronic Asthma (20 sources) Uncomplicated severe persistent asthma; Translations: [Severe persistent asthma, uncomplicated] Onset: 10-15-2024 02-09-2020 Chronic Comment on above: on [place] Chronic obstructive pulmonary disease and bronchiectasis (20 sources) Chronic obstructive lung disease; Translations: [Asthma-chronic obstructive pulmonary disease overlap syndrome] Onset: 12-02-2015 12-02-2015 Chronic Coronary atherosclerosis and other heart disease (20 sources) Coronary arteriosclerosis; Translations: [Atherosclerotic heart disease of [place] coronary artery without angina pectoris] Onset: 12-30-2015 12-30-2015 Chronic Disorders of lipid metabolism (12 sources) Hyperlipidemia; Translations: [Hyperlipidemia, unspecified] Onset: 12-30-2015 12-30-2015 Chronic Genitourinary symptoms and ill-defined conditions (20 sources) Increased frequency of urination; Translations: [Dysuria] Onset: 11-09-2016 11-09-2016 Episodic Glaucoma (5 sources) Glaucoma; Translations: [Unspecified glaucoma] 02-14-2024 Chronic Mycoses (20 sources) Candidiasis of mouth; Translations: [Candidal stomatitis] 01-18-2018 Episodic Other circulatory disease (15 sources) H/O: heart disorder; Translations: [Personal history of other diseases of the circulatory system] 12-15-2022 Episodic Other lower respiratory disease (12 sources) Dyspnea on exertion; Translations: [Other forms of dyspnea] Onset: 12-02-2015 12-02-2015 Episodic Other lower respiratory disease (20 sources) Nodule of lung; Translations: [Solitary pulmonary nodule] 08-06-2018 Episodic Other lower respiratory disease (5 sources) Solitary pulmonary nodule; Translations: [Solitary pulmonary nodule] Onset: 09-10-2024 Episodic Other lower respiratory disease (9 sources) Dyspnea; Translations: [Shortness of breath] 04-20-2023 Episodic Other lower respiratory disease (9 sources) Wheezing; Translations: [Wheezing] 04-20-2023 Episodic Other [...] Retinal detachments; defects; vascular occlusion; and retinopathy (5 sources) Degenerative disorder of macula ; Translations: [...] Test Name Value Interpretation Reference Range Facility Absolute lymphocyte countOrd ered By: Naomi Whyte on 10-17-2024 Lymphocytes Auto (Unsp spec) [#/Vol] 2.41 10*3/uL 0.83-4.[address] [facility] Absolute neutrophil countOrd ered By: Naomi Whyte on 10-17-2024 Neutrophils (Bld) [#/Vol] 4.2 10*3/uL 2.0-7.[address] [facility] Anion gap in Serum or Plasma Ordered By: Naomi Whyte on 10-17-2024 Anion gap [Moles/Vol] 13 mmol/L 5-15 [facility] Automated lymphocyte count a s percentage of total leukocytesOrdered By: Naomi Whyte on 10-17-2024 Lymphocytes/100 WBC Auto (Unsp spec) 32.5 % 19-[address] [facility] BUN/creatinine ratioOrdered By: Naomi Whyte on 10-17-2024 Urea nitrogen/Creatinine [Mass ratio] 9.6 mg/mg Low 10-[address] [facility] Basophil percentageOrdered B y: Naomi Whyte on 10-17-2024 Basophils/100 WBC (Bld) 0.9 % 0-1 [facility] Bilirubin, totalOrdered By: Naomi Whyte on 10-17-2024 Bilirubin [Mass/Vol] 0.42 mg/dL 0.00-1.30 [facility] CBC W/Diff, Automatedon 10-07 Absolute Lymph 2.41 X10 3/uL Normal 0.83-4.[address] [facility] Comment on above: Performed By: #### L 503.0106, L100.0100, L501.5200, L500.4100, L500.4050 #### [facility] [place], [address] Absolute Neut 4.2 X10 3/uL Normal 2.0-7.[address] [facility] Comment on above: Performed By: #### L 503.0106, L100.0100, L501.5200, L500.4100, L500.4050 #### [facility] [address] [place], [address] Basophils/100 WBC (Bld) 0.9 % Normal 0-1 [facility] Comment on above: Performed By: #### L 503.0106, L100.0100, L501.5200, L500.4100, L500.4050 #### [facility] [address] [place], [address] Eosinophils/100 WBC (Bld) 1.3 % Normal 0-[address] [facility] Comment on above: Performed By: #### L 503.0106, L100.0100, L501.5200, L500.4100, L500.4050 #### [facility] [address] [place], [address] Erythrocyte distribution width (RBC) [Ratio] 13.2 % Normal 11.6-14.[address] [facility] Comment on above: Performed By: #### L 503.0106, L100.0100, L501.5200, L500.4100, L500.4050 #### [facility] [address] [place], [address] Hematocrit (Bld) [Volume fraction] 41.7 % Normal 37-[address] [facility] Comment on above: Performed By: #### L 503.0106, L100.0100, L501.5200, L500.4100, L500.4050 #### [facility] [address] [place], [address] Hemoglobin (Bld) [Mass/Vol] 13.6 g/dL Normal 12.0-15.[address] [facility] Comment on above: Performed By: #### L 503.0106, L100.0100, L501.5200, L500.4100, L500.4050 #### [facility] [address] [place], [address] IG% 1.100 High 0.0-0.[address] [facility] Comment on above: Result Comment: IG% - Immature Granulocytes (promyelocytes, myelocytes and metamyelocytes) > 1% indicates that a LEFT SHIFT is Present. Performed By: #### L 503.0106, L100.0100, L501.5200, L500.4100, L500.4050 #### [facility] [address] [place], [address] Lymphocytes/100 WBC (Bld) 32.5 % Normal 19-[address] [facility] Comment on above: Performed By: #### L 503.0106, L100.0100, L501.5200, L500.4100, L500.4050 #### [facility] [address] [place], [address] MCH (RBC) [Entitic mass] 29.4 pg Normal 27.0-32.[address] [facility] Comment on above: Performed By: #### L 503.0106, L100.0100, L501.5200, L500.4100, L500.4050 #### [facility] [address] [place], [address] MCHC (RBC) [Mass/Vol] 32.6 g/dL Normal 32-36 [facility] Comment on above: Performed By: #### L 503.0106, L100.0100, L501.5200, L500.4100, L500.4050 #### [facility] [address] [place], [address] MCV (RBC) [Entitic vol] 90.3 fL Normal 81-99 [facility] Comment on above: Performed By: #### L 503.0106, L100.0100, L501.5200, L500.4100, L500.4050 #### [facility] [address] [place], [address] Monocytes/100 WBC (Bld) 7.3 % Normal 0-10 [facility] Comment on above: Performed By: #### L 503.0106, L100.0100, L501.5200, L500.4100, L500.4050 #### [facility] [address] [place], [address] Neutrophils/100 WBC (Bld) 56.9 % Normal 47-[address] [facility] Comment on above: Performed By: #### L 503.0106, L100.0100, L501.5200, L500.4100, L500.4050 #### [facility] [address] [place], [address] Nucleated RBC (Bld) [#/Vol] 0 10*3/uL Normal 0-[address] [facility] Comment on above: Performed By: #### L 503.0106, L100.0100, L501.5200, L500.4100, L500.4050 #### [facility] [address] [place], [address] Platelet mean volume (Bld) [Entitic vol] 9.3 fL Normal 6.2-12.[address] [facility] Comment on above: Performed By: #### L 503.0106, L100.0100, L501.5200, L500.4100, L500.4050 #### [facility] [address] [place], [address] Platelets (Bld) [#/Vol] 345 10*3/uL Normal 150-[address] [facility] Comment on above: Performed By: #### L 503.0106, L100.0100, L501.5200, L500.4100, L500.4050 #### [facility] [address] [place], [address] RBC (Bld) [#/Vol] 4.62 10*6/uL Normal 4.2-5.4 [facility] Comment on above: Performed By: #### L 503.0106, L100.0100, L501.5200, L500.4100, L500.4050 #### [facility] [address] [place], [address] RDW SD 43.0 fl Normal 35.1-43.[address] [facility] Comment on above: Performed By: #### L 503.0106, L100.0100, L501.5200, L500.4100, L500.4050 #### [facility] [address] [place], [address] WBC (Bld) [#/Vol] 7.4 10*3/uL Normal 4.4-11.0 [facility] Comment on above: Performed By: #### L 503.0106, L100.0100, L501.5200, L500.4100, L500.4050 #### [facility] [address] [place], [address] Calculated very low density lipoprotein (VLDL) cholesterol measurementOrdered By: Naomi Whyte on 10-17-2024 Calculated very low density lipoprotein (VLDL) cholesterol measurement 22 mg/dL 5-[address] [facility] Carbon dioxide, total [Moles /volume] in Central venous bloodOrdered By: Naomi Whyte on 10-17-2024 CO2 [Moles/Vol] 18.8 mmol/L Low 21.0-32.[address] [facility] Chloride assayOrdered By: Ai Whyte on 10-17-2024 Chloride [Moles/Vol] 106 mmol/L 98-108 [facility] Comprehensive Metabolic Prof ilon 10-17-2024 Albumin [Mass/Vol] 4.2 g/dL Normal 3.4-4.8 [facility] Comment on above: Performed By: #### L 503.0106, L100.0100, L501.5200, L500.4100, L500.4050 #### [facility] [address] [place], [address] Albumin/Globulin [Mass ratio] 1.5 {ratio} Normal 0.9-2.[address] [facility] Comment on above: Performed By: #### L 503.0106, L100.0100, L501.5200, L500.4100, L500.4050 #### [facility] [address] [place], [address] ALK PHOS 98 U/L Normal 35-[address] [facility] Comment on above: Performed By: #### L 503.0106, L100.0100, L501.5200, L500.4100, L500.4050 #### [facility] [address] [place], [address] ALT [Catalytic activity/Vol] 23 U/L Normal <=[address] [facility] Comment on above: Performed By: #### L 503.0106, L100.0100, L501.5200, L500.4100, L500.4050 #### [facility] [address] [place], [address] AST [Catalytic activity/Vol] 18 U/L Normal <=[address] [facility] Comment on above: Performed By: #### L 503.0106, L100.0100, L501.5200, L500.4100, L500.4050 #### [facility] [address] [place], [address] Bilirubin [Mass/Vol] 0.42 mg/dL Normal 0.00-1.30 [facility] Comment on above: Performed By: #### L 503.0106, L100.0100, L501.5200, L500.4100, L500.4050 #### [facility] [address] [place], [address] BUN/CRE 9.6 RATIO Low 10-[address] [facility] Comment on above: Performed By: #### L 503.0106, L100.0100, L501.5200, L500.4100, L500.4050 #### [facility] [address] [place], [address] Calcium [Mass/Vol] 9.4 mg/dL Normal 7.6-11.0 [facility] Comment on above: Performed By: #### L 503.0106, L100.0100, L501.5200, L500.4100, L500.4050 #### [facility] [address] [place], [address] Chloride [Moles/Vol] 106 mmol/L Normal 98-108 [facility] Comment on above: Performed By: #### L 503.0106, L100.0100, L501.5200, L500.4100, L500.4050 #### [facility] [address] [place], [address] CO2 [Moles/Vol] 18.8 mmol/L Low 21.0-32.[address] [facility] Comment on above: Performed By: #### L 503.0106, L100.0100, L501.5200, L500.4100, L500.4050 #### [facility] [address] [place], [address] Creatinine [Mass/Vol] 1.09 mg/dL Normal 0.70-1.20 [facility] Comment on above: Performed By: #### L 503.0106, L100.0100, L501.5200, L500.4100, L500.4050 #### [facility] [address] [place], [address] GAP 13 Normal 5-[address] [facility] Comment on above: Performed By: #### L 503.0106, L100.0100, L501.5200, L500.4100, L500.4050 #### [facility] [address] [place], [address] GFR/1.73 sq M.predicted among non-blacks MDRD (S/P/Bld) [Vol rate/Area] 55 mL/min/{1.73_m2} Low >[address] [facility] Comment on above: Result Comment: mL/m in/1.73m2 CKD-EPI Creatinine Equation (2020) Performed By: #### L 503.0106, L100.0100, L501.5200, L500.4100, L500.4050 #### [facility] [address] [place], [address] Globulin (S) [Mass/Vol] 2.9 g/dL Normal 2.2-4.2 [facility] Comment on above: Performed By: #### L 503.0106, L100.0100, L501.5200, L500.4100, L500.4050 #### [facility] [address] [place], [address] Glucose [Mass/Vol] 89 mg/dL Normal 70-99 [facility] Comment on above: Performed By: #### L 503.0106, L100.0100, L501.5200, L500.4100, L500.4050 #### [facility] [address] [place], [address] Potassium [Moles/Vol] 4.1 mmol/L Normal 3.3-5.1 [facility] Comment on above: Performed By: #### L 503.0106, L100.0100, L501.5200, L500.4100, L500.4050 #### [facility] [address] [place], [address] Sodium [Moles/Vol] 138 mmol/L Normal 133-145 [facility] Comment on above: Performed By: #### L 503.0106, L100.0100, L501.5200, L500.4100, L500.4050 #### [facility] [address] [place], [address] T PROT 7.0 g/dL Normal 5.9-8.[address] [facility] Comment on above: Performed By: #### L 503.0106, L100.0100, L501.5200, L500.4100, L500.4050 #### [facility] [address] [place], [address] Urea nitrogen [Mass/Vol] 11 mg/dL Normal 4-[address] [facility] Comment on above: Performed By: #### L 503.0106, L100.0100, L501.5200, L500.4100, L500.4050 #### [facility] [address] [place], [address] Eosinophil percentageOrdered By: Naomi Whyte on 10-17-2024 Eosinophils/100 WBC (Bld) 1.3 % 0-[address] [facility] Erythrocyte distribution wid th ratioOrdered By: Naomi Whyte on 10-17-2024 Erythrocyte distribution width (RBC) [Ratio] 13.2 % 11.6-14.[address] [facility] Erythrocyte distribution wid th standard deviationOrdered By: Naomi Whyte on 10-17-2024 Erythrocyte distribution width (RBC) [Ratio] 43.0 fl 35.1-43.[address] [facility] Glomerular filtration rate ( GFR) estimation/1.73 sq m using serum, plasma, or whole bOrdered By: Naomi Whyte on 10-17-2024 GFR/1.73 sq M.predicted among non-blacks MDRD (S/P/Bld) [Vol rate/Area] 55 mL/min/{1.73_m2} Low >[address] [facility] Comment on above: mL/min/1.73m2 CKD-EP I Creatinine Equation (2020) Hematocrit Auto (Bld) [Volum e fraction]Ordered By: Naomi Whyte on 10-17-2024 Hematocrit (Bld) [Volume fraction] 41.7 % 37-[address] [facility] Hemoglobin measurementOrdere d By: Naomianisa Whyte on 10-17-2024 Hemoglobin (Bld) [Mass/Vol] 13.6 g/dL 12.0-15.[address] [facility] Immature granulocytes/100 WB C Auto (Bld)Ordered By: Naomi Whyte on 10-17-2024 Immature granulocytes/100 WBC (Bld) 1.100 % High 0.0-0.[address] [facility] Comment on above: IG% - Immature Granu locytes (promyelocytes, myelocytes and metamyelocytes) > 1% indicates that a LEFT SHIFT is Present. LDL calc ser/plasOrdered By: Naomi Whyte on 10-17-2024 Cholesterol in LDL [Mass/Vol] 196 mg/dL [facility] Comment on above: Oopdhtmgza=115-873 m g/dL & Higher Iquc=447 mg/dL or greater Laboratory - Chemistry and C hemistry - challengeOrdered By: Naomi Whyte on 10-17-2024 AST [Catalytic activity/Vol] 18 U/L <[address] [facility] Lipid Profileon 10-17-2024 CHOL:HDL 4.[address] [facility] Comment on above: Performed By: #### L 503.0106, L100.0100, L501.5200, L500.4100, L500.4050 #### [facility] [address] [place], [place], [address] Cholesterol [Mass/Vol] 285 mg/dL High <=200 [facility] Comment on above: Result Comment: Chol esterol level, Desirable <200 mg/dL Borderline high cholesterol 200-239 mg/dL High cholesterol >=240 mg/dL Recommendations of the NCEP Adult Treatment Panel for the following risk-cutoff thresholds for the [place] population. Performed By: #### L 503.0106, L100.0100, L501.5200, L500.4100, L500.4050 #### [facility] [address] [place], [address] Cholesterol in HDL [Mass/Vol] 68 mg/dL Normal [facility] Comment on above: Result Comment: Evangelina onal Cholesterol Education Program (NCEP) guidelines: <40 mg/dL: Low HDL-cholesterol (major risk factor for CHD) >= 60 mg/dL: High HDL-cholesterol (negative risk factor for CHD) HDL-cholesterol is affected by a number of factors, e.g. smoking, exercise, hormones, sex and age. Performed By: #### L 503.0106, L100.0100, L501.5200, L500.4100, L500.4050 #### [facility] [address] [place], [address] Cholesterol in LDL [Mass/Vol] 196 mg/dL Normal [facility] Comment on above: Result Comment: Bord szskfl=093-339 mg/dL Higher Eves=626 mg/dL or greater Performed By: #### L 503.0106, L100.0100, L501.5200, L500.4100, L500.4050 #### [facility] [address] [place], [address] Cholesterol in VLDL [Mass/Vol] 22 mg/dL Normal 5-[address] [facility] Comment on above: Performed By: #### L 503.0106, L100.0100, L501.5200, L500.4100, L500.4050 #### [facility] [address] [place], [address] Triglyceride [Mass/Vol] 108 mg/dL Normal [facility] Comment on above: Result Comment: The drugs N-Acetylcysteine and Metamizole may falsely depress this assay. Normal range: <150 mg/dL Borderline High: 150-199 mg/dL High: 200-499 mg/dL Very High: >500 mg/dL Performed By: #### L 503.0106, L100.0100, L501.5200, L500.4100, L500.4050 #### [facility] [address] [place], [place], [address] MCV (mean corpuscular volume ) determinationOrdered By: Naomi Whyte on 10-17-2024 MCV (RBC) [Entitic vol] 90.3 fL 81-99 [facility] Magnesiumon 10-17-2024 Magnesium [Mass/Vol] 2.3 mg/dL High 1.5-2.2 [facility] Comment on above: Performed By: #### L 503.0106, L100.0100, L501.5200, L500.4100, L500.4050 #### [facility] [address] [facility] [place], [place], [address] Magnesium measurement (mass/ volume)Ordered By: Naomi Whyte on 10-17-2024 Magnesium (Unsp spec) [Mass/Vol] 2.3 mg/dL High 1.5-2.[address] [facility] Mean corpuscular hemoglobin (MCH) determinationOrdered By: Naomi Whyte on 10-17-2024 MCH (RBC) [Entitic mass] 29.4 pg 27.0-32.[address] [facility] Mean corpuscular hemoglobin concentration (MCHC) determinationOrdered By: Naomi Whyte on 10-17-2024 MCHC (RBC) [Mass/Vol] 32.6 g/dL 32-36 [facility] Mean platelet volume determi nationOrdered By: Naomi Whyte on 10-17-2024 Platelet mean volume (Bld) [Entitic vol] 9.3 fL 6.2-12.[address] [facility] Monocyte percentageOrdered B y: Naomi Whyte on 10-17-2024 Monocytes/100 WBC (Bld) 7.3 % 0-10 [facility] Neutrophil percentageOrdered By: Naomi Whyte on 10-17-2024 Neutrophils/100 WBC (Bld) 56.9 % 47-[address] [facility] Nucleated red blood cell per centageOrdered By: Naomi Whyte on 10-17-2024 Nucleated RBC/100 WBC (Bld) [Ratio] 0 % 0-[address] [facility] Platelet countOrdered By: Ai Whyte on 10-17-2024 Platelets (Bld) [#/Vol] 345 10*3/uL 150-[address] [facility] Potassium measurement (mass/ volume)Ordered By: Naomi Whyte on 10-17-2024 Potassium (Unsp spec) [Mass/Vol] 4.1 mmol/L 3.3-5.[address] [facility] RBC Auto (Bld) [#/Vol]Ordere d By: Naomi Whyte on 10-17-2024 RBC (Bld) [#/Vol] 4.62 10*6/uL 4.2-5.4 [facility] Screening total cholesterol/ high density lipoprotein (HDL) cholesterol ratioOrdered By: Naomi Whyte on 10-17-2024 Cholesterol.total/Hiral sterol in HDL [Mass ratio] 4.20 {ratio} [facility] Serum creatinine measurement (mass/volume)Ordered By: Naomi Whyte on 10-17-2024 Creatinine [Mass/Vol] 1.09 mg/dL 0.70-1.20 [facility] Serum globulin measurementOr dered By: Naomi Whyte on 10-17-2024 Globulin (S) [Mass/Vol] 2.9 g/dL 2.2-4.2 [facility] Serum glucose measurement (m ass/volume)Ordered By: Naomi Whyte on 10-17-2024 Glucose [Mass/Vol] 89 mg/dL 70-99 [facility] Serum or plasma alanine jackson otransferase (ALT) measurementOrdered By: Naomi Whyte on 10-17-2024 ALT [Catalytic activity/Vol] 23 U/L <[address] [facility] Serum or plasma albumin aida urement (mass/volume)Ordered By: Naomi Whyte on 10-17-2024 Albumin [Mass/Vol] 4.2 g/dL 3.4-4.8 [facility] Serum or plasma albumin/glob ulin mass ratioOrdered By: Naomi Whyte on 10-17-2024 Albumin/Globulin [Mass ratio] 1.5 {ratio} 0.9-2.[address] [facility] Serum or plasma alkaline jeri sphatase measurementOrdered By: Naomi Whyte on 10-17-2024 ALP [Catalytic activity/Vol] 98 U/L 35-[address] [facility] Serum or plasma calcium aida urement (mass/volume)Ordered By: Naomi Whyte on 10-17-2024 Calcium [Mass/Vol] 9.4 mg/dL 7.6-11.0 [facility] Serum or plasma cholesterol in HDL measurement (mass/volume)Ordered By: Naomi Whyte on 10-17-2024 Cholesterol in HDL [Mass/Vol] 68 mg/dL >[address] [facility] Comment on above: National Cholesterol Education Program (NCEP) guidelines:<40 mg/dL: Low HDL-cholesterol (major risk factor for CHD)>= 60 mg/dL: High HDL-cholesterol (negative risk factor for CHD)HDL-cholesterol is affected by a number of factors, e.g. smoking, exercise, hormones, sex and age. Serum or plasma cholesterol measurement (mass/volume)Ordered By: Naomi Whyte on 10-17-2024 Cholesterol [Mass/Vol] 285 mg/dL High <201 [facility] Comment on above: Cholesterol level, D esirable <200 mg/dLBorderline high cholesterol 200-239 mg/dLHigh cholesterol >=240 mg/dLRecommendations of the NCEP Adult Treatment Panel for the following risk-cutoff thresholds for the [place] population. Serum or plasma urea nitroge n measurement (mass/volume)Ordered By: Naomi Whyte on 10-17-2024 Urea nitrogen [Mass/Vol] 11 mg/dL 4-[address] [facility] Sodium levelOrdered By: Naomi Whyte on 10-17-2024 Sodium [Moles/Vol] 138 mmol/L 133-145 [facility] Total proteinOrdered By: Graciela Whyte on 10-17-2024 Protein [Mass/Vol] 7.0 g/dL 5.9-8.4 [facility] Triglycerides measurementOrd ered By: Naomi Whyte on 10-17-2024 Triglyceride [Mass/Vol] 108 mg/dL <199 [facility] Comment on above: The drugs N-Acetylcy steine and Metamizole may falsely depress this assay. Normal range: <150 mg/dLBorderline High: 150-199 mg/dLHigh: 200-499 mg/dLVery High: >500 mg/dL Vitamin B12on 10-17-2024 Cobalamin (Vitamin B12) [Mass/Vol] 357 pg/mL Normal 180-[address] [facility] Comment on above: Performed By: #### L 503.0106, L100.0100, L501.5200, L500.4100, L500.4050 #### [facility] [address] [place], [address] Vitamin B12 ser/plasOrdered By: Naomi Whyte on 10-17-2024 Cobalamin (Vitamin B12) [Mass/Vol] 357 pg/mL 180-[address] [facility] White blood cell (WBC) count Ordered By: Naomi Whyte on 10-17-2024 WBC (Bld) [#/Vol] 7.4 10*3/uL 4.4-11.0 [facility] Pulmonary Visit Reporton Pulmonary Visit Report [facility] [address] [place] [address] OFFICE VISIT Date of Service: 09/10/24 MR#: [id number] Acct: [id number] Name: TARSHA GONZALEZ Rep #: [id number] : 1955 Provider: NELI De Jesus Age/Sex: 69/F [place] [facility] [place] Status: Signed Assessment and Plan Assessment and [...] (pediatric) Plan This note was generated with [employer] dictation software. It may contain incorrect words, [...] be problematic. Intake Vital Signs 03/12/24 07:42 06/04/25 08:24 Height 5 ft 3 in 5 ft 3 in Weight: 207 lb BMI 36.6 BP 128/81 H Blood Pressure Location Rt brachial Position Sitting Respiration 20 H Pulse 86 Pulse Source NIBP Temp 97.4 F L Temperature Source Temporal Artery Pulse Oximetry (%) 95 Oxygen Delivery Method room air Intake Visit Reasons: 6 M FU Chief Complaint: [place] Hotel Superintendent Required: No DME Vendor: [email or web address] Accompanied by: Self Is patient in pain?: [...] 04/20/23 0 (more content not included)... Normal [facility] Pulmonary Visit Reporton Pulmonary Visit Report [facility] [address] [place] [address] OFFICE VISIT Date of Service: 03/12/24 MR#: [id number] Acct: [id number] Name: TARSHA GONZALEZ DOMINGA Rep #: [id number] : 1955 Provider: NELI De Jesus Age/Sex: 69/F [place] [facility] [place] Status: Signed with Addenda ADDENDUM by NELI [...] 06/04/24 1139 Date Cathie De Jesus NP [employer] cc: Dr. Naomi Whyte, DO * Signed [...] She recently returned from a trip to [place], unfortunately her brother from cancer. She has [...] 6 M FU Chief Complaint: smells sulfur Hotel Superintendent Required: No DME Vendor: pap- dont use Accompanied by: Self Is patient in pain?: No Allergies codeine Allergy (Verified 03/12/24 12:43) Itching morphine Allergy (Verified 03/12/24 12:43) Itching do (more content not included)... Normal [facility] 12 Lead EKG performed [place] [facility] [place]-14-2024 12 Lead EKG performed by [facility] [address] [place] [address] 12 Lead EKG performed [place] [facility] [place] 02/14/24 1008 MR#: [id number] Acct: [id number] Name: TARSHA GONZALEZ DOMINGA Rep #: [id number] : 1955 69 From: Angel Patel MD Attending Dr: Dr. Angel Patel MD Status: DE P AMB Ordering Dr: Angel Patel MD Date: 02/14/24 [place] [facility] [place]: F C Admitted: BMS/12 Lead EKG performed [place] [facility] [place] ECG Report Interpretation ---Sinus Rhythm -Left atrial enlargement. -Old anterior infarct. -Nonspecific ST depression -Nondiagnostic. ABNORMAL Electronically signed on 02/14/2024 at 16:[address] Angel Patel [employer] Version [id number] 02/14/24 1650 Date Angel Patel MD CC: Dr. Naomi Whyte DO Date Dictated: 02/14/241007 Date Transcribed: 02/14/241007 [employer] Cut[employer] Machine Operator: Signed Normal [facility] Cardiology Visit Reporton Cardiology Visit Report [facility] [address] [place] [address] OFFICE VISIT Date of Service: 02/14/24 MR#: [id number] Acct: [id number] Name: TARSHA GONZALEZ DOMINGA Rep #: [id number] : 1955 Provider: Dr. Angel noe MD Age/Sex: 69/F [place] [facility] [place] Status: Signed with Addenda ADDENDUM by Dr. Angel Patel MD on 02/14/24 at 1422 HPI History of Present Illness Details: ECG shows normal sinus rhythm at 84 bpm left atrial enlargement cannot rule out old inferior or anterior [place]. There are nondiagnostic ST segment changes. This is similar to an old EKG from December 2022. Assessment and Plan Assessment and Plan (1) Atherosclerosis of coronary artery: Status: Acute Qualifiers: Coronary Disease-Associated Artery/Lesion type: [place] artery [place] vs. transplanted heart: [place] heart Associated angina: unspecified whether angina present Qualified Code(s): I25.10 - Atherosclerotic heart disease of [place] coronary artery without angina pectoris (2) TORREZ [...] Weeks I25.10 - Atherosclerotic heart disease of cowl[place] coronary artery without angina pectoris, R06.02 - Shortness of breath Lipid Profile 6 Weeks I25.10 - Atherosclerotic heart disease of [place] coronary artery without angina pectoris Liver Profile 6 Weeks I25.10 - Atherosclerotic heart disease of [place] coronary artery without angina pectoris Medications: New [...] does not smoke but she has an [id number] smoking history, she is hyperlipidemic and has [...] room air Intake Visit Reasons: Dyspnea (Malys) Hotel Superintendent Required: No Accompanied by: Self Is patient [...] solution for (more content not included)... Normal [facility] Low Dose CT Lung Screeningon 12-28-[address] Lung Screening [facility] Imaging Services [address] [place], [place] [address] Low Dose CT Lung Screening MR#: [id number] Acct: [id number] Name: TARSHA GONZALEZ Rep #: [id number] : 1955 F 68 From: Cali olmedo DO PCP: Dr. Kamilah Patel MD Status: [facility] Study: Low Dose CT Lung Screening Date of Exam: 12/27 Exam# [id number] Ordering Dr: Cathie De Jesus NP [employer] [id number] EXAM: CT CHEST, LUNG CANCER SCREENING WITHOUT [...] lesions. BONES/JOINTS: Degenerative changes in the spine. [place] right scoliotic curvature. No suspicious lytic or blastic abnormality. VASCULATURE: Atherosclerosis. LYMPH NODES: No significant abnormality. No enlarged lymph nodes. CT/Low Dose CT Lung Screening IMPRESSION: ACR Lung CT Screening Reporting And Data System (Lung-RADS) score: 2 - Benign Appearance or Behavior. Recommend continued annual screening with a low-dose CT (LDCT) in 12 months. Electronically Signed: Cali Hoffman, DO at 22:20 EDT , CC: NELI De Jesus; Dr. Kamilah Patel MD [employer] Operator: Signed Normal [facility] Absolute lymphocyte countOrd ered By: Jagdish Day on 12-15-2022 Lymphocytes Auto (Unsp spec) [#/Vol] 2.44 10*3/uL 0.83-4.[address] [facility] Basophil percentageOrdered B y: Jagdish Day on 12-15-2022 Basophils/100 WBC (Bld) 0.7 % 0-1 [facility] Chloride [Moles/Vol] 109 mmol/L 98-107 [facility] Eosinophils/100 WBC (Bld) 1.5 % 0-[address] [facility] Glucose [Mass/Vol] 109 mg/dL 74-106 [facility] Comment on above: Fasting Glucose resu lt from 100 to 125 mg/dL suggests IMPAIRED HOMEOSTASIS per A.D.A. criteria. Neutrophils (Bld) [#/Vol] 2.8 10*3/uL 2.0-7.[address] [facility] Neutrophils/100 WBC (Bld) 46.2 % 47-[address] [facility] Potassium [Moles/Vol] 3.5 mmol/L 3.5-5.1 [facility] Sodium [Moles/Vol] 138 mmol/L 136-145 [facility] WBC (Bld) [#/Vol] 6.1 10*3/uL 4.4-11.0 [facility] Blood erythrocytes count (nu mber/volume)Ordered By: Jagdish Day on 12-15-2022 RBC (Bld) [#/Vol] 4.90 10*6/uL 4.2-5.4 [facility] Blood hemoglobin measurement (mass/volume)Ordered By: Jadgish Day on 12-15-2022 Hemoglobin (Bld) [Mass/Vol] 14.4 g/dL 12.0-15.[address] [facility] Blood lymphocytes/100 leukoc ytesOrdered By: Jagdish Day on 12-15-2022 Lymphocytes/100 WBC (Bld) 40.1 % 19-[address] [facility] Blood monocytes/100 leukocyt esOrdered By: Jagdish Day on 12-15-2022 Monocytes/100 WBC (Bld) 11.0 % 0-10 [facility] Blood platelet mean volumeOr dered By: Jagdish Day on 12-15-2022 Platelet mean volume (Bld) [Entitic vol] 9.2 fL 6.2-12.[address] [facility] Determination of erythrocyte mean corpuscular volume (MCV)Ordered By: Jagdish Day on 12-15-2022 MCV (RBC) [Entitic vol] 88.6 fL 81-99 [facility] Hematocrit Auto (Bld) [Volum e fraction]Ordered By: Jagdish Day on 12-15-2022 Hematocrit (Bld) [Volume fraction] 43.4 % 37-[address] [facility] - Chemistry and C hemistry - challengeOrdered By: Jagdish Day on 12-15-2022 CO2 [Moles/Vol] 22.0 mmol/L 21.0-32.[address] [facility] Urea nitrogen/Creatinine [Mass ratio] 11.1 mg/mg 10-[address] [facility] - Hematology and Cell countsOrdered By: Jagdish Day on 12-15-2022 Erythrocyte distribution width (RBC) [Entitic vol] 40.5 fL 35.1-43.[address] [facility] Erythrocyte distribution width (RBC) [Ratio] 12.5 % 11.6-14.[address] [facility] Immature granulocytes/100 WBC (Bld) 0.500 % 0.0-0.[address] [facility] Comment on above: IG% - Immature Granu locytes (promyelocytes, myelocytes and metamyelocytes) > 1% indicates that a LEFT SHIFT is Present. MCH (RBC) [Entitic mass] 29.4 pg 27.0-32.[address] [facility] Nucleated RBC/100 WBC (Bld) [Ratio] 0 % 0-[address] [facility] MCHC Auto (RBC) [Mass/Vol]Or dered By: Jagdish Day on 12-15-2022 MCHC (RBC) [Mass/Vol] 33.2 g/dL 32-36 [facility] No Panel InformationOrdered By: Jagdish Day on 12-15-2022 Estimated Creatinine Clearance Calc 45.16 ml/min [facility] Estimated GFR (MDRD) Amer 71 mL/min >[address] [facility] Comment on above: GFR Calc Estimated GFR (MDRD) Non-Af Amer 59 mL/min >[address] [facility] Comment on above: Non- GFR Calc Troponin I High Sensitivity 19 pg/mL 3.0-54.[address] [facility] Comment on above: Please Note: New Margareth t Units and Gender Specific Reference Ranges. For more information see Policy Stat Procedure [place] High Sensitivity Troponin (TNIH) and attachments. Platelets bldOrdered By: Reynaldo Day on 12-15-2022 Platelets (Bld) [#/Vol] 321 10*3/uL 150-[address] [facility] SARS-CoV-2 (COVID-19) Ag IA. rapid Ql (Resp)Ordered By: Jagdish Day on 12-15-2022 SARS-CoV-2 Antigen (Rapid) SARS-CoV-2 (COVID 19) [facility] SARS-CoV-2 Antigen (Rapid) SARS-CoV-2 (COVID 19) [facility] Serum or plasma calcium aida urement (mass/volume)Ordered By: Jagdish Day on 12-15-2022 Calcium [Mass/Vol] 9.7 mg/dL 8.5-10.1 [facility] Serum or plasma creatinine m easurement (mass/volume)Ordered By: Jagdish Day on 12-15-2022 Creatinine [Mass/Vol] 1.00 mg/dL 0.55-1.02 [facility] Comment on above: The validity of the calculated GFR & GFRAA in patients over 70 years has not been determined. Clinical correlation is essential. Serum or plasma urea nitroge n measurement (mass/volume)Ordered By: Jagdish Day on 12-15-2022 Urea nitrogen [Mass/Vol] 11 mg/dL 7-[address] [facility] Thin prep Papanicolaou smear with manual screeningOrdered By: Jagdish Day on 12-15-2022 Thin prep Papanicolaou smear with manual screening 7 5-[address] [facility] Culture, urineOrdered By: [facility] albert Clifton on 02-10-2022 Bacteria identified Cx Nom (U) Klebsiella pneumoniae sp pneum [facility] Laboratory - Chemistry and C hemistry - challengeon 02-08-2022 Bilirubin Ql (U) Negative [facility] Glucose Ql (U) Negative [facility] Ketones Ql (U) Small (15+) [facility] pH (U) 5.0 [pH] [facility] Specific gravity (U) [Rel density] 1.[address] [facility] Urobilinogen (U) [Mass/Vol] Negative [facility] Laboratory - Hematology and Cell countson 02-08-2022 Hemoglobin Ql (U) Negative [facility] Laboratory - Specimen inform ationon 02-08-2022 Clarity (U) Cloudy [facility] Color (U) AYAH [facility] Laboratory - Urinalysison Nitrite Ql (U) Positive [facility] Protein Ql (U) Negative [facility] No Panel Informationon 02-08 Urine Leukocytes Positive [facility] Urine Non-Hemolyzed Blood Negative [facility] Basophil percentageon 2021 Bilirubin [Mass/Vol] 0.40 mg/dL 0.20-1.00 [facility] Work Phone: Comment on above: For patients on eltr ombopag therapy, use of Dimension [place] TBIL is not recommended. Chloride [Moles/Vol] 110 mmol/L 98-107 [facility] Work Phone: Cholesterol [Mass/Vol] 276 mg/dL <200 [facility] Work Phone: Comment on above: <200 mg/dL Desirable 200-240 mg/dL Borderline >240 mg/dL High Risk Glucose [Mass/Vol] 94 mg/dL 74-106 [facility] Work Phone: Potassium [Moles/Vol] 3.7 mmol/L 3.5-5.1 [facility] Work Phone: Protein [Mass/Vol] 6.6 g/dL 6.4-8.2 [facility] Work Phone: Sodium [Moles/Vol] 141 mmol/L 136-145 [facility] Work Phone: Triglyceride [Mass/Vol] 73 mg/dL <199 [facility] Work Phone: Comment on above: The drugs N-Acetylcy steine and Metamizole may falsely depress this assay.Serum Triglycerides Reference Interval Normal <150 mg/dL Borderline high 150 - 199 mg/dL High 200 - 499 mg/dL Very High > or = 500 mg/dL Laboratory - Chemistry and C hemistry - challengeon 12-15-2021 ALP [Catalytic activity/Vol] 88 U/L 45-[address] [facility] Work Phone: ALT [Catalytic activity/Vol] 20 U/L 13-[address] [facility] Work Phone: CO2 [Moles/Vol] 25.0 mmol/L 21.0-32.[address] [facility] Work Phone: Globulin (S) [Mass/Vol] 3.3 g/dL 2.2-4.2 [facility] Work Phone: Urea nitrogen/Creatinine [Mass ratio] 9.9 mg/mg 10-[address] [facility] Work Phone: No Panel Informationon 12-15 Estimated GFR (MDRD) Amer 91 mL/min >[address] [facility] Work Phone: Comment on above: GFR Calc Estimated GFR (MDRD) Non-Af Amer 76 mL/min >[address] [facility] Work Phone: Comment on above: Non- GFR Calc Serum or plasma albumin aida urement (mass/volume)on 12-15-2021 Albumin [Mass/Vol] 3.3 g/dL 3.2-5.0 [facility] Work Phone: Serum or plasma albumin/glob ulin mass ratioon 12-15-2021 Albumin/Globulin [Mass ratio] 1.0 {ratio} 0.9-2.[address] [facility] Work Phone: Serum or plasma calcium aida urement (mass/volume)on 12-15-2021 Calcium [Mass/Vol] 9.0 mg/dL 8.5-10.1 [facility] Work Phone: Serum or plasma cholesterol in HDL measurement (mass/volume)on 12-15-2021 Cholesterol in HDL [Mass/Vol] 57 mg/dL >[address] [facility] Work Phone: Comment on above: The drugs N-Acetylcy steine and Metamizole may falsely depress this assay. Reference Range HDL <40 mg/dL Low HDL Cholesterol HDL >or= 60 mg/dL High HDL Cholesterol Serum or plasma cholesterol in VLDL measurement (mass/volume)on 12-15-2021 Cholesterol in VLDL [Mass/Vol] 15 mg/dL 5-[address] [facility] Work Phone: Serum or plasma creatinine m easurement (mass/volume)on 12-15-2021 Creatinine [Mass/Vol] 0.80 mg/dL 0.55-1.02 [facility] Work Phone: Comment on above: The validity of the calculated GFR & GFRAA in patients over 70 years has not been determined. Clinical correlation is essential. Serum or plasma low density lipoprotein (LDL) cholesterol measurement (mass/volume)on 12-15-2021 Cholesterol in LDL [Mass/Vol] 204 mg/dL 0-[address] [facility] Work Phone: Serum or plasma urea nitroge n measurement (mass/volume)on 12-15-2021 Urea nitrogen [Mass/Vol] 8 mg/dL 7-[address] [facility] Work Phone: Thin prep Papanicolaou smear with manual screeningon 12-15-2021 Thin prep Papanicolaou smear with manual screening 15 U/L 15-[address] [facility] Work Phone: Thin prep Papanicolaou smear with manual screening 6 5-[address] [facility] Work Phone: Laboratory - Chemistry and C hemistry - challengeon 11-09-2021 Bilirubin Ql (U) Negative [facility] Work Phone: Glucose Ql (U) Negative [facility] Work Phone: Ketones Ql (U) Small (15+) [facility] Work Phone: pH (U) 5.0 [pH] [facility] Work Phone: Specific gravity (U) [Rel density] 1.[address] [facility] Work Phone: Urobilinogen (U) [Mass/Vol] Negative [facility] Work Phone: Laboratory - Hematology and Cell countson 11-09-2021 Hemoglobin Ql (U) Hemolyzed [facility] Work Phone: Laboratory - Specimen inform ationon 11-09-2021 Clarity (U) Cloudy [facility] Work Phone: Color (U) AYAH [facility] Work Phone: Laboratory - Urinalysison Nitrite Ql (U) Negative [facility] Work Phone: Protein Ql (U) Negative [facility] Work Phone: No Panel Informationon 11-09 Urine Leukocytes Positive [facility] Work Phone: Urine Non-Hemolyzed Blood Small [facility] Work Phone: No Panel Informationon 04-06 POC SARS CoV-2 Antigen Positive [facility] Work Phone: Basophil percentageon 2020 Basophil percentage 0-5 SEEN /hpf [facility] Work Phone: Bilirubin Test strip Ql (U)o n 04-04-2021 Bilirubin Ql (U) Negative Negative [facility] Work Phone: Ketones Test strip Ql (U)on 04-04-2021 Ketones Ql (U) 5 mg/dl Negative [facility] Work Phone: Mucus LM Ql (Urine sed)on Mucus Ql (Urine sed) 0 SEEN /hpf [facility] Work Phone: Nitrite Test strip Ql (U)on 04-04-2021 Nitrite Ql (U) Negative Negative [facility] Work Phone: Protein Test strip Ql (U)on 04-04-2021 Protein Ql (U) 30 mg/dl Negative [facility] Work Phone: Squamous epithelial cells de tection in urine sediment by light microscopyon 04-04-2021 Epithelial cells.squamous LM Ql (Urine sed) 0-5 SEEN /hpf [facility] Work Phone: Urine blood detectionon 03-10 RBC Ql (U) 10 /ul Negative [facility] Work Phone: RBC Ql (U) 0 SEEN /hpf [facility] Work Phone: Urine clarityon 04-04-2021 Clarity (U) Sl. Cloudy Clear [facility] Work Phone: Urine color determinationon 04-04-2021 Color (U) Yellow Yellow [facility] Work Phone: Urine glucose detectionon Glucose Ql (U) Normal mg/dl Normal [facility] Work Phone: Urine leukocyte esterase det ection by dipstickon 04-04-2021 Leukocyte esterase Test strip Ql (U) 100 /ul Negative [facility] Work Phone: Urine pHon 04-04-2021 pH (U) 5.0 [pH] [facility] Work Phone: Urine sediment bacteria coun t by microscopy (number/high power field)on 04-04-2021 Bacteria LM.HPF (Urine sed) [#/Area] RARE /hpf None Seen [facility] Work Phone: Urine specific gravity measu rementon 04-04-2021 Specific gravity (U) [Rel density] 1.[address] [facility] Work Phone: Urobilinogen Auto test strip Ql (U)on 04-04-2021 Urobilinogen Ql (U) 1 mg/dl Normal [facility] Work Phone: Office Visit: UC: UTIon 08-0 Albumin Ql (U) trace [facility] Work Phone: Appearance Nom (U) clear [facility] Work Phone: [phone] Bilirubin Ql (U) Negative [facility] Work Phone: [phone] Color Nom (U) yellow [facility] Work Phone: [phone] Fall risk assessment No [facility] Work Phone: [phone] Glucose Test strip mass conc (U) Negative [facility] Work Phone: [phone] Ketones mass conc (U) Negative [facility] Work Phone: [phone] Leukocyte esterase Test strip Ql (U) 2+ [facility] Work Phone: [phone] Nitrite Ql (U) Negative [facility] Work Phone: [phone] pH (U) 5.0 [pH] [facility] Work Phone: Protein mass conc Done [facility] Work Phone: Specific gravity Refractometry Relative Density (U) 1.030 [facility] Work Phone: Tobacco smoking status NHIS Never [facility] Work Phone: [phone] Tobacco smoking status NHIS Former smoker [facility] Work Phone: Urobilinogen Test strip Ql (U) Negative [facility] Work Phone: [phone] Office Visit: UC: UTI?on Fall risk assessment No [facility] Work Phone: Protein mass conc Done [facility] Work Phone: [phone] Tobacco smoking status NHIS Former smoker [facility] Work Phone: [phone] Tobacco smoking status NHIS Never [facility] Work Phone: [phone] Office Visit: COPD and OSAon 09-20-2016 Dietary management education, guidance, and counseling (procedure) yes Invalid Interpretation Code [facility] Work Phone: Documentation of current medications (procedure) Done Invalid Interpretation Code [facility] Work Phone: Protein mass conc Done [facility] Work Phone: Tobacco smoking status NHIS Never Invalid Interpretation Code [facility] Work Phone: Tobacco smoking status ALIS Former smoker [facility] Work Phone: Tobacco use [facility] Former smoker Invalid Interpretation Code [facility] Work Phone: Clinical 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 Left ventricular Ejection fraction 60 % [facility] Work Phone: Office Visit: OSAon 02-03-20 16 Protein mass conc Done [facility] Work Phone: Tobacco smoking status NHIS Never [facility] Work Phone: Tobacco smoking status ALIS Former smoker [facility] Work Phone: Replaced Document: Susan BATISTA Observationson 12-30-2015 EKG QRS axis 58 deg [facility] Work Phone: electrocardiogram interpretation Sinus Rhythm WITHIN NORMAL LIMITS Invalid Interpretation Code [facility] Work Phone: GE use only - for [employer] import when terms are not otherwise specified 405 ms Invalid Interpretation Code [facility] Work Phone: Interpretation Sinus Rhythm WITHIN NORMAL LIMITS [facility] Work Phone: P Golva 64 deg [facility] Work Phone: P wave axis, electrocardiogram 64 deg Invalid Interpretation Code [facility] Work Phone: MT Interval 132 ms [facility] Work Phone: MT interval, electrocardiogram 132 ms Invalid Interpretation Code [facility] Work Phone: Pulse (Heart Rate) 62 /min Invalid Interpretation Code [facility] Work Phone: QRS axis, electrocardiogram 58 deg Invalid Interpretation Code [facility] Work Phone: QRS Duration 87 ms [facility] Work Phone: QRS duration, electrocardiogram 87 ms Invalid Interpretation Code [facility] Work Phone: QT Interval new path ms [facility] Work Phone: QT interval, electrocardiogram new path ms Invalid Interpretation Code [facility] Work Phone: QTc Dennis 405 ms [facility] Work Phone: T Golva 37 deg [facility] Work Phone: T wave axis, electrocardiogram 37 deg Invalid Interpretation Code [facility] Work Phone: Clinical Lists 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: 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 11-18-2015 ALT enzyme act/vol 18 U/L [facility] Work Phone: AST enzyme act/vol 11 U/L [facility] Work Phone: Bilirubin mass conc 0.30 mg/dL [facility] Work Phone: Calcium mass conc 9.0 mg/dL [facility] Work Phone: Chloride molar conc 108 mmol/L [facility] Work Phone: Cholesterol in HDL mass conc 71 mg/dL [facility] Work Phone: Cholesterol in LDL mass conc 174 mg/dL [facility] Work Phone: Cholesterol mass conc 266 mg/dL [facility] Work Phone: CO2 24.0 mmol/L Invalid Interpretation Code [facility] Work Phone: CO2 ppres (BldV) 24.0 mmol/L [facility] Work Phone: Creatinine mass conc 0.77 mg/dL [facility] Work Phone: Glucose 122 mg/dL Invalid Interpretation Code [facility] Work Phone: Glucose mass conc 122 mg/dL [facility] Work Phone: Hematocrit (HCT) 40.2 % Invalid Interpretation Code [facility] Work Phone: Hematocrit Volume Fraction (Bld) 40.2 % [facility] Work Phone: Hemoglobin mass conc (Bld) 13.6 g/dL [facility] Work Phone: Platelets 382 10*3/mm3 Invalid Interpretation Code [facility] Work Phone: Platelets #/vol (Bld) 382 10*3/mm3 [facility] [employer] Work Phone: Potassium molar conc 3.8 mmol/L [facility] [employer] Work Phone: Protein mass conc 7.4 g/dL [facility] [employer] Work Phone: Sodium molar conc 139 mmol/L [facility] [employer] Work Phone: Thyrotropin Qn 1.51 u[iU]/mL [facility] [employer] Work Phone: Triglyceride mass conc 104 mg/dL [facility] [employer] Work Phone: Urea nitrogen/Creatinine mass ratio 11.7 mg/mg [facility] [employer] Work Phone: WBC #/vol (Bld) 7.8 10*3/uL [facility] [employer] Work Phone: WBC (Leukocytes) 7.8 10*3/uL Invalid Interpretation Code [facility] [employer] Work Phone: Culture, urine Bacteria identified Cx Nom (U) Klebsiella pneumoniae sp pneum [facility] Work Phone: Vital Signs Date Time Vital Sign Value Performing Clinician Facility 10-17-2024 13:24-0400 Body height 160.[address] Naomi Whyte DO Work Phone: [facility] 10-17-2024 13:24-0400 Body mass index (BMI) [Ratio] 37.2 kg/m2 Dr. Naomi Whyte DO Work Phone: [facility] 10-17-2024 13:24-0400 Body temperature 96.3 [degF] Dr. Naomi Whyte DO Work Phone: [facility] 10-17-2024 13:24-0400 Body weight 95.[address] Naomi Whyte DO Work Phone: [facility] 10-17-2024 13:24-0400 Diastolic blood pressure 80 mm[Hg] Dr. Naomi Whyte DO Work Phone: [facility] 10-17-2024 13:24-0400 Heart rate 71 /min Dr. Naomi Whyte DO Work Phone: [facility] 10-17-2024 13:24-0400 Respiratory rate 16 /min Dr. Naomi Whyte DO Work Phone: [facility] 10-17-2024 13:24-0400 SaO2% (BldA) [Mass fraction] 91 % Dr. Naomi Whyte DO Work Phone: [facility] 10-17-2024 13:24-0400 Systolic blood pressure 136 mm[Hg] Dr. Naomi Whyte DO Work Phone: [facility] 09-10-2024 14:39-0400 Body height 160.[address] Naomi Whyte DO Work Phone: [facility] 09-10-2024 14:39-0400 Body mass index (BMI) [Ratio] 36.6 kg/m2 Dr. Naomi Whyte DO Work Phone: [facility] 09-10-2024 14:39-0400 Body temperature 96.8 [degF] Dr. Naomi Whyte DO Work Phone: [facility] 09-10-2024 14:39-0400 Body weight 93.[address] Naomi Whyte DO Work Phone: [facility] 09-10-2024 14:39-0400 Diastolic blood pressure 61 mm[Hg] Dr. Naomi Whyte DO Work Phone: [facility] 09-10-2024 14:39-0400 Heart rate 66 /min Dr. Naomi Whyte DO Work Phone: [facility] 09-10-2024 14:39-0400 Respiratory rate 16 /min Dr. Naomi Whyte DO Work Phone: [facility] 09-10-2024 14:39-0400 SaO2% (BldA) [Mass fraction] 95 % Dr. Naomi Whyte DO Work Phone: [facility] 09-10-2024 14:39-0400 Systolic blood pressure 154 mm[Hg] Dr. Naomi Whyte DO Work Phone: [facility] 09-10-2024 08:24-0400 Body mass index (BMI) [Ratio] 36.6 kg/m2 Dr. Naomi Whyte DO Work Phone: [facility] 09-10-2024 08:24-0400 Body temperature 97.4 [degF] Dr. Naomi Whyte DO Work Phone: [facility] 09-10-2024 08:24-0400 Body weight 93.[address] Naomi Whyte DO Work Phone: [facility] 09-10-2024 08:24-0400 Diastolic blood pressure 81 mm[Hg] Dr. Naomi Whyte DO Work Phone: [facility] 09-10-2024 08:24-0400 Heart rate 86 /min Dr. Naomi Whyte DO Work Phone: [facility] 09-10-2024 08:24-0400 Respiratory rate 20 /min Dr. Naomi Whyte DO Work Phone: [facility] 09-10-2024 08:24-0400 SaO2% (BldA) [Mass fraction] 95 % Dr. Namoi Whyte DO Work Phone: [facility] 09-10-2024 08:24-0400 Systolic blood pressure 128 mm[Hg] Dr. Naomi Whyte DO Work Phone: [facility] 07-04-2024 11:36-0400 Body height 160.[address] Naomi Whyte DO Work Phone: [facility] 07-04-2024 11:36-0400 Body mass index (BMI) [Ratio] 36.1 kg/m2 Dr. Naomi Whyte DO Work Phone: [facility] 07-04-2024 11:36-0400 Body temperature 96.5 [degF] Dr. Naomi Whyte DO Work Phone: [facility] 07-04-2024 11:36-0400 Body weight 92.[address] Naomi Whyte DO Work Phone: [facility] 07-04-2024 11:36-0400 Diastolic blood pressure 68 mm[Hg] Dr. Naomi Whyte DO Work Phone: [facility] 07-04-2024 11:36-0400 Heart rate 77 /min Dr. Naomi Whyte DO Work Phone: [facility] 07-04-2024 11:36-0400 Respiratory rate 16 /min Dr. Naomi Whyte DO Work Phone: [facility] 07-04-2024 11:36-0400 SaO2% (BldA) [Mass fraction] 94 % Dr. Naomi Whyte DO Work Phone: [facility] 07-04-2024 11:36-0400 Systolic blood pressure 110 mm[Hg] Dr. Naomi Whyte DO Work Phone: [facility] 04-25-2024 12:27-0500 Body mass index (BMI) [Ratio] 35.4 kg/m2 Dr. Naomi Whyte DO Work Phone: [facility] 04-25-2024 12:27-0500 Body temperature 97.8 [degF] Dr. Noami Whyte DO Work Phone: [facility] 04-25-2024 12:27-0500 Body weight 90.[address] Naomi Whyte DO Work Phone: [facility] 04-25-2024 12:27-0500 Diastolic blood pressure 75 mm[Hg] Dr. Naomi Whyte DO Work Phone: [facility] 04-25-2024 12:27-0500 Heart rate 93 /min Dr. Naomi Whyte DO Work Phone: [facility] 04-25-2024 12:27-0500 Respiratory rate 18 /min Dr. Naomi Whyte DO Work Phone: [facility] 04-25-2024 12:27-0500 SaO2% (BldA) [Mass fraction] 98 % Dr. Naomi Whyte DO Work Phone: [facility] 04-25-2024 12:27-0500 Systolic blood pressure 141 mm[Hg] Dr. Naomi Whyte DO Work Phone: [facility] 03-21-2024 12:13-0500 Body temperature 97.2 [degF] Dr. Naomi Whyte DO Work Phone: [facility] 03-21-2024 12:13-0500 Diastolic blood pressure 80 mm[Hg] Dr. Naomi Whyte DO Work Phone: [facility] 03-21-2024 12:13-0500 Heart rate 89 /min Dr. Naomi Whyte DO Work Phone: [facility] 03-21-2024 12:13-0500 Respiratory rate 16 /min Dr. Naomi Whyte DO Work Phone: [facility] 03-21-2024 12:13-0500 SaO2% (BldA) [Mass fraction] 98 % Dr. Naomi Whyte DO Work Phone: [facility] 03-21-2024 12:13-0500 Systolic blood pressure 136 mm[Hg] Dr. Naomi Whyte DO Work Phone: [facility] 03-12-2024 07:42-0500 Body mass index (BMI) [Ratio] 35.4 kg/m2 Dr. Naomi Whyte DO Work Phone: [facility] 03-12-2024 07:42-0500 Body temperature 95.3 [degF] Dr. Naomi Whyte DO Work Phone: [facility] 03-12-2024 07:42-0500 Body weight 90.[address] Naomi Whyte DO Work Phone: [facility] 03-12-2024 07:42-0500 Diastolic blood pressure 80 mm[Hg] Dr. Naomi Whyte DO Work Phone: [facility] 03-12-2024 07:42-0500 Heart rate 72 /min Dr. Naomi Whyte DO Work Phone: [facility] 03-12-2024 07:42-0500 Respiratory rate 20 /min Dr. Naomi Whyte DO Work Phone: [facility] 03-12-2024 07:42-0500 SaO2% (BldA) [Mass fraction] 97 % Dr. Naomi Whyte DO Work Phone: [facility] 03-12-2024 07:42-0500 Systolic blood pressure 127 mm[Hg] Dr. Naomi Whyte DO Work Phone: [facility] 08-15-2023 13:38-0400 Body height 160.[address] Kamilah Patel Work Phone: [facility] 08-15-2023 13:38-0400 Body temperature 97.4 [degF] Dr. Kamilah Patel Work Phone: [facility] 08-15-2023 13:38-0400 Diastolic blood pressure 68 mm[Hg] Dr. Kamilah Patel Work Phone: [facility] 08-15-2023 13:38-0400 Heart rate 89 /min Dr. Kamilah Patel Work Phone: [facility] 08-15-2023 13:38-0400 Respiratory rate 16 /min Dr. Kamilah Patel Work Phone: [facility] 08-15-2023 13:38-0400 SaO2% (BldA) [Mass fraction] 96 % Dr. Kamilah Patel Work Phone: [facility] 08-15-2023 13:38-0400 Systolic blood pressure 113 mm[Hg] Dr. Kamilah Patel Work Phone: [facility] 08-02-2023 07:57-0400 Body mass index (BMI) [Ratio] 33.8 kg/m2 Dr. Kamilah Patel Work Phone: [facility] 08-02-2023 07:57-0400 Body temperature 98.4 [degF] Dr. Kamilah Patel Work Phone: [facility] 08-02-2023 07:57-0400 Body weight 86.[address] Kamilah Patel Work Phone: [facility] 08-02-2023 07:57-0400 Diastolic blood pressure 74 mm[Hg] Dr. Kamilah Patel Work Phone: [facility] 08-02-2023 07:57-0400 Heart rate 75 /min Dr. Kamilah Patel Work Phone: [facility] 08-02-2023 07:57-0400 SaO2% (BldA) [Mass fraction] 95 % Dr. Kamilah Patel Work Phone: [facility] 08-02-2023 07:57-0400 Systolic blood pressure 113 mm[Hg] Dr. Kamilah Patel Work Phone: [facility] 06-15-2023 12:37-0500 Body height 160.[address] Kamilah Patel Work Phone: [facility] 06-15-2023 12:37-0500 Body mass index (BMI) [Ratio] 33.6 kg/m2 Dr. Kamilah Patel Work Phone: [facility] 06-15-2023 12:37-0500 Body temperature 97 [degF] Dr. Kamilah Patel Work Phone: [facility] 06-15-2023 12:37-0500 Body weight 86.[address] Kamilah Patel Work Phone: [facility] 06-15-2023 12:37-0500 Diastolic blood pressure 65 mm[Hg] Dr. Kamilah Patel Work Phone: [facility] 06-15-2023 12:37-0500 Heart rate 77 /min Dr. Kamilah Patel Work Phone: [facility] 06-15-2023 12:37-0500 Respiratory rate 14 /min Dr. Kamilah Patel Work Phone: [facility] 06-15-2023 12:37-0500 SaO2% (BldA) [Mass fraction] 96 % Dr. Kamilah Patel Work Phone: [facility] 06-15-2023 12:37-0500 Systolic blood pressure 110 mm[Hg] Dr. Kamilah Patel Work Phone: [facility] 05-18-2023 12:30-0500 Body height 160.[address] Kamilah Patel Work Phone: [facility] 05-18-2023 12:30-0500 Body mass index (BMI) [Ratio] 33.6 kg/m2 Dr. Kamilah Patel Work Phone: [facility] 05-18-2023 12:30-0500 Body temperature 97.6 [degF] Dr. Kamilah Patel Work Phone: [facility] 05-18-2023 12:30-0500 Body weight 86.[address] Kamilah Patel Work Phone: [facility] 05-18-2023 12:30-0500 Diastolic blood pressure 77 mm[Hg] Dr. Kamilah Patel Work Phone: [facility] 05-18-2023 12:30-0500 Heart rate 78 /min Dr. Kamilah Patel Work Phone: [facility] 05-18-2023 12:30-0500 Respiratory rate 16 /min Dr. Kamilah Patel Work Phone: [facility] 05-18-2023 12:30-0500 SaO2% (BldA) [Mass fraction] 98 % Dr. Kamilah Patel Work Phone: [facility] 05-18-2023 12:30-0500 Systolic blood pressure 124 mm[Hg] Dr. Kamilah Patel Work Phone: [facility] 05-16-2023 08:00-0500 Body mass index (BMI) [Ratio] 33.8 kg/m2 Dr. Kamilah Patel Work Phone: [facility] 05-16-2023 08:00-0500 Body temperature 98.7 [degF] Dr. Kamilah Patel Work Phone: [facility] 05-16-2023 08:00-0500 Body weight 86.[address] Kamilah Patel Work Phone: [facility] 05-16-2023 08:00-0500 Diastolic blood pressure 62 mm[Hg] Dr. Kamilah Patel Work Phone: [facility] 05-16-2023 08:00-0500 Heart rate 92 /min Dr. Kamilah Patel Work Phone: [facility] 05-16-2023 08:00-0500 Respiratory rate 16 /min Dr. Kamilah Patel Work Phone: [facility] 05-16-2023 08:00-0500 SaO2% (BldA) [Mass fraction] 96 % Dr. Kamilah Patel Work Phone: [facility] 05-16-2023 08:00-0500 Systolic blood pressure 130 mm[Hg] Dr. Kamilah Patel Work Phone: [facility] 04-20-2023 13:17-0500 Body height 160.[address] Kamilah Patel Work Phone: [facility] 04-20-2023 13:17-0500 Body mass index (BMI) [Ratio] 32.8 kg/m2 Dr. Kamilah Patel Work Phone: [facility] 04-20-2023 13:17-0500 Body temperature 97.3 [degF] Dr. Kamilah Patel Work Phone: [facility] 04-20-2023 13:17-0500 Body weight 83.[address] Kamilah Patel Work Phone: [facility] 04-20-2023 13:17-0500 Diastolic blood pressure 64 mm[Hg] Dr. Kamilah Patel Work Phone: [facility] 04-20-2023 13:17-0500 Heart rate 73 /min Dr. Kamilah Patel Work Phone: [facility] 04-20-2023 13:17-0500 Respiratory rate 16 /min Dr. Kamilah Patel Work Phone: [facility] 04-20-2023 13:17-0500 SaO2% (BldA) [Mass fraction] 96 % Dr. Kamilah Patel Work Phone: [facility] 04-20-2023 13:17-0500 Systolic blood pressure 122 mm[Hg] Dr. Kamilah Patel Work Phone: [facility] 04-20-2023 12:32-0500 Body mass index (BMI) [Ratio] 32.8 kg/m2 Dr. Kamilah Patel Work Phone: [facility] 04-20-2023 12:32-0500 Body temperature 97.3 [degF] Dr. Kamilah Patel Work Phone: [facility] 04-20-2023 12:32-0500 Body weight 83.[address] Kamilah Patel Work Phone: [facility] 04-20-2023 12:32-0500 Diastolic blood pressure 71 mm[Hg] Dr. Kamilah Patel Work Phone: [facility] 04-20-2023 12:32-0500 Heart rate 90 /min Dr. Kamilah Patel Work Phone: [facility] 04-20-2023 12:32-0500 Respiratory rate 18 /min Dr. Kamilah Patel Work Phone: [facility] 04-20-2023 12:32-0500 SaO2% (BldA) [Mass fraction] 94 % Dr. Kamilah Patel Work Phone: [facility] 04-20-2023 12:32-0500 Systolic blood pressure 117 mm[Hg] Dr. Kamilah Patel Work Phone: [facility] 02-23-2023 13:08-0500 Body height 160.[address] Kamilah Patel Work Phone: [facility] 02-23-2023 13:08-0500 Body temperature 97.6 [degF] Dr. Kamilah Patel Work Phone: [facility] 02-23-2023 13:08-0500 Diastolic blood pressure 57 mm[Hg] Dr. Kamilah Patel Work Phone: [facility] 02-23-2023 13:08-0500 Heart rate 64 /min Dr. Kamilah Patel Work Phone: [facility] 02-23-2023 13:08-0500 Respiratory rate 16 /min Dr. Kamilah Patel Work Phone: [facility] 02-23-2023 13:08-0500 SaO2% (BldA) [Mass fraction] 98 % Dr. Kamilah Patel Work Phone: [facility] 02-23-2023 13:08-0500 Systolic blood pressure 103 mm[Hg] Dr. Kamilah Patel Work Phone: [facility] 2023 11:59-0400 Body mass index (BMI) [Ratio] 32.4 kg/m2 Dr. Kamilah Patel Work Phone: [facility] 2023 11:59-0400 Body temperature 94.6 [degF] Dr. Kamilah Patel Work Phone: [facility] 2023 11:59-0400 Body weight [address] Kamilah Patel Work Phone: [facility] 2023 11:59-0400 Diastolic blood pressure 74 mm[Hg] Dr. Kamilah Patel Work Phone: [facility] 2023 11:59-0400 Heart rate 75 /min Dr. Kamilah Patel Work Phone: [facility] 2023 11:59-0400 Respiratory rate 18 /min Dr. Kamilah Patel Work Phone: [facility] 2023 11:59-0400 SaO2% (BldA) [Mass fraction] 98 % Dr. Kamilah Patel Work Phone: [facility] 2023 11:59-0400 Systolic blood pressure 114 mm[Hg] Dr. Kamilah Patel Work Phone: [facility] 01-26-2023 13:19-0400 Body height 160.02 cm [facility] 01-26-2023 13:19-0400 Body mass index (BMI) [Ratio] 32.4 kg/m2 [facility] 01-26-2023 13:19-0400 Body temperature 97 [degF] [facility] 01-26-2023 13:19-0400 Body weight 83 kg [facility] 01-26-2023 13:19-0400 Diastolic blood pressure 75 mm[Hg] [facility] 01-26-2023 13:19-0400 Heart rate 83 /min [facility] 01-26-2023 13:19-0400 Respiratory rate 18 /min [facility] 01-26-2023 13:19-0400 SaO2% (BldA) [Mass fraction] 93 % [facility] 01-26-2023 13:19-0400 Systolic blood pressure 120 mm[Hg] [facility] 12-29-2022 13:09-0400 Body height 160.02 cm [facility] 12-29-2022 13:09-0400 Body temperature 96.8 [degF] [facility] 12-29-2022 13:09-0400 Diastolic blood pressure 57 mm[Hg] [facility] 12-29-2022 13:09-0400 Heart rate 75 /min [facility] 12-29-2022 13:09-0400 Respiratory rate 16 /min [facility] 12-29-2022 13:09-0400 SaO2% (BldA) [Mass fraction] 95 % [facility] 12-29-2022 13:09-0400 Systolic blood pressure 110 mm[Hg] [facility] 12-15-2022 09:38-0400 Diastolic blood pressure 70 mm[Hg] [facility] 12-15-2022 09:38-0400 Heart rate 99 /min [facility] 12-15-2022 09:38-0400 Respiratory rate 20 /min [facility] 12-15-2022 09:38-0400 SaO2% (BldA) [Mass fraction] 99 % [facility] 12-15-2022 09:38-0400 Systolic blood pressure 119 mm[Hg] [facility] 12-15-2022 07:23-0400 Body temperature 98 [degF] [facility] 12-15-2022 07:11-0400 Body height 160.02 cm [facility] 12-15-2022 07:11-0400 Body mass index (BMI) [Ratio] 33.6 kg/m2 [facility] 12-15-2022 07:11-0400 Body weight 86.09 kg [facility] 12-01-2022 13:54-0400 Body height 160.02 cm [facility] 12-01-2022 13:54-0400 Body mass index (BMI) [Ratio] 33.1 kg/m2 [facility] 12-01-2022 13:54-0400 Body temperature 96.7 [degF] [facility] 12-01-2022 13:54-0400 Body weight 84.82 kg [facility] 12-01-2022 13:54-0400 Diastolic blood pressure 53 mm[Hg] [facility] 12-01-2022 13:54-0400 Heart rate 76 /min [facility] 12-01-2022 13:54-0400 Respiratory rate 16 /min [facility] 12-01-2022 13:54-0400 SaO2% (BldA) [Mass fraction] 92 % [facility] 12-01-2022 13:54-0400 Systolic blood pressure 100 mm[Hg] [facility] 11-02-2022 15:11-0400 Body mass index (BMI) [Ratio] 32.8 kg/m2 [facility] 11-02-2022 15:11-0400 Body temperature 96.2 [degF] [facility] 11-02-2022 15:11-0400 Body weight 83.91 kg [facility] 11-02-2022 15:11-0400 Diastolic blood pressure 70 mm[Hg] [facility] 11-02-2022 15:11-0400 Heart rate 84 /min [facility] 11-02-2022 15:11-0400 Respiratory rate 18 /min [facility] 11-02-2022 15:11-0400 SaO2% (BldA) [Mass fraction] 95 % [facility] 11-02-2022 15:11-0400 Systolic blood pressure 113 mm[Hg] [facility] 09-28-2022 12:57-0400 Body height 160.[address] Kamilah Patel Work Phone: [facility] 09-28-2022 12:57-0400 Body temperature 97.1 [degF] Dr. Kamilah Patel Work Phone: [facility] 09-28-2022 12:57-0400 Diastolic blood pressure 63 mm[Hg] Dr. Kamilah Patel Work Phone: [facility] 09-28-2022 12:57-0400 Heart rate 64 /min Dr. Kamilah Patel Work Phone: [facility] 09-28-2022 12:57-0400 Respiratory rate 16 /min Dr. Kamilah Patel Work Phone: [facility] 09-28-2022 12:57-0400 SaO2% (BldA) [Mass fraction] 97 % Dr. Kamilah Patel Work Phone: [facility] 09-28-2022 12:57-0400 Systolic blood pressure 117 mm[Hg] Dr. Kamilah Patel Work Phone: [facility] 08-24-2022 13:57-0400 Body mass index (BMI) [Ratio] 31.5 kg/m2 Dr. Kamilah Patel Work Phone: [facility] 08-24-2022 13:57-0400 Body temperature 97.8 [degF] Dr. Kamilah Patel Work Phone: [facility] 08-24-2022 13:57-0400 Body weight 80.[address] Kamilah Patel Work Phone: [facility] 08-24-2022 13:57-0400 Diastolic blood pressure 62 mm[Hg] Dr. Kamilah Patel Work Phone: [facility] 08-24-2022 13:57-0400 Heart rate 68 /min Dr. Kamilah Patel Work Phone: [facility] 08-24-2022 13:57-0400 Respiratory rate 16 /min Dr. Kamilah Patel Work Phone: [facility] 08-24-2022 13:57-0400 SaO2% (BldA) [Mass fraction] 98 % Dr. Kamilah Patel Work Phone: [facility] 08-24-2022 13:57-0400 Systolic blood pressure 112 mm[Hg] Dr. Kamilah Patel Work Phone: [facility] 08-01-2022 07:46-0400 Body mass index (BMI) [Ratio] 31.5 kg/m2 Dr. Kamilah Patel Work Phone: [facility] 08-01-2022 07:46-0400 Body temperature 98.1 [degF] Dr. Kamilah Patel Work Phone: [facility] 08-01-2022 07:46-0400 Body weight 80.[address] Kamilah Patel Work Phone: [facility] 08-01-2022 07:46-0400 Diastolic blood pressure 70 mm[Hg] Dr. Kamilah Patel Work Phone: [facility] 08-01-2022 07:46-0400 Heart rate 77 /min Dr. Kamilah Patel Work Phone: [facility] 08-01-2022 07:46-0400 Respiratory rate 18 /min Dr. Kamilah Patel Work Phone: [facility] 08-01-2022 07:46-0400 SaO2% (BldA) [Mass fraction] 95 % Dr. Kamilah Patel Work Phone: [facility] 08-01-2022 07:46-0400 Systolic blood pressure 103 mm[Hg] Dr. Kamilah Patel Work Phone: [facility] 07-27-2022 14:19-0400 Body height 160.02 cm [facility] 07-27-2022 14:19-0400 Body temperature 97 [degF] [facility] 07-27-2022 14:19-0400 Diastolic blood pressure 67 mm[Hg] [facility] 07-27-2022 14:19-0400 Heart rate 90 /min [facility] 07-27-2022 14:19-0400 Respiratory rate 16 /min [facility] 07-27-2022 14:19-0400 SaO2% (BldA) [Mass fraction] 94 % [facility] 07-27-2022 14:19-0400 Systolic blood pressure 94 mm[Hg] [facility] 06-22-2022 13:05-0400 Body height 160.02 cm [facility] 06-22-2022 13:05-0400 Body mass index (BMI) [Ratio] 31.3 kg/m2 [facility] 06-22-2022 13:05-0400 Body weight 80.28 kg [facility] 06-22-2022 13:05-0400 Diastolic blood pressure 66 mm[Hg] [facility] 06-22-2022 13:05-0400 Heart rate 72 /min [facility] 06-22-2022 13:05-0400 Respiratory rate 16 /min [facility] 06-22-2022 13:05-0400 SaO2% (BldA) [Mass fraction] 100 % [facility] 06-22-2022 13:05-0400 Systolic blood pressure 101 mm[Hg] [facility] 05-25-2022 13:17-0500 Body height 160.[address] Kamilah Patel Work Phone: [facility] 05-25-2022 13:17-0500 Body mass index (BMI) [Ratio] 31.3 kg/m2 Dr. Kamilah Patel Work Phone: [facility] 05-25-2022 13:17-0500 Body temperature 97.5 [degF] Dr. Kamilah Patel Work Phone: [facility] 05-25-2022 13:17-0500 Body weight 80.[address] Kamilah Patel Work Phone: [facility] 05-25-2022 13:17-0500 Diastolic blood pressure 62 mm[Hg] Dr. Kamilah Patel Work Phone: [facility] 05-25-2022 13:17-0500 Heart rate 91 /min Dr. Kamilah Patel Work Phone: [facility] 05-25-2022 13:17-0500 Respiratory rate 18 /min Dr. Kamilah Patel Work Phone: [facility] 05-25-2022 13:17-0500 SaO2% (BldA) [Mass fraction] 94 % Dr. Kamilah Patel Work Phone: [facility] 05-25-2022 13:17-0500 Systolic blood pressure 97 mm[Hg] Dr. Kamilah Patel Work Phone: [facility] 04-27-2022 12:43-0500 Body mass index (BMI) [Ratio] 31.8 kg/m2 Dr. Kamilah Patel Work Phone: [facility] 04-27-2022 12:43-0500 Body temperature 97.5 [degF] Dr. Kamilah Patel Work Phone: [facility] 04-27-2022 12:43-0500 Body weight 81.[address] Kamilah Patel Work Phone: [facility] 04-27-2022 12:43-0500 Diastolic blood pressure 69 mm[Hg] Dr. Kamilah Patel Work Phone: [facility] 04-27-2022 12:43-0500 Heart rate 82 /min Dr. Kamilah Patel Work Phone: [facility] 04-27-2022 12:43-0500 Respiratory rate 16 /min Dr. Kamilah Patel Work Phone: [facility] 04-27-2022 12:43-0500 SaO2% (BldA) [Mass fraction] 93 % Dr. Kamilah Patel Work Phone: [facility] 04-27-2022 12:43-0500 Systolic blood pressure 125 mm[Hg] Dr. Kamilah Patel Work Phone: [facility] 03-21-2022 14:02-0500 Diastolic blood pressure 74 mm[Hg] Dr. Kamilah Patel Work Phone: [facility] 03-21-2022 14:02-0500 Heart rate 71 /min Dr. Kamilah Patel Work Phone: [facility] 03-21-2022 14:02-0500 SaO2% (BldA) [Mass fraction] 93 % Dr. Kamilah Patel Work Phone: [facility] 03-21-2022 14:02-0500 Systolic blood pressure 135 mm[Hg] Dr. Kamilah Patel Work Phone: [facility] 02-08-2022 14:23-0400 Diastolic blood pressure 64 mm[Hg] Dr. Kamilah Patel Work Phone: [facility] 02-08-2022 14:23-0400 Systolic blood pressure 108 mm[Hg] Dr. Kamilah Patel Work Phone: [facility] 02-08-2022 13:15-0400 Body temperature 98 [degF] Dr. Kamilah Patel Work Phone: [facility] 02-08-2022 13:15-0400 Heart rate 71 /min Dr. Kamilah Patel Work Phone: [facility] 02-08-2022 13:15-0400 Respiratory rate 14 /min Dr. Kamilah Patel Work Phone: [facility] 02-08-2022 13:15-0400 SaO2% (BldA) [Mass fraction] 96 % Dr. Kamilah Patel Work Phone: [facility] 01-30-2022 08:06-0400 Body height 160.[address] Kamilah Patel Work Phone: [facility] Work Phone: 01-30-2022 08:06-0400 Body mass index (BMI) [Ratio] 33.3 kg/m2 Dr. Kamilah Patel Work Phone: [facility] Work Phone: 01-30-2022 08:06-0400 Body temperature 98 [degF] Dr. Kamilah Patel Work Phone: [facility] Work Phone: 01-30-2022 08:06-0400 Body weight 85.[address] Kamilah Patel Work Phone: [facility] Work Phone: 01-30-2022 08:06-0400 Diastolic blood pressure 78 mm[Hg] Dr. Kamilah Patel Work Phone: [facility] Work Phone: 01-30-2022 08:06-0400 Heart rate 71 /min Dr. Kamilah Patel Work Phone: [facility] Work Phone: 01-30-2022 08:06-0400 Respiratory rate 16 /min Dr. Kamilah Patel Work Phone: [facility] Work Phone: 01-30-2022 08:06-0400 SaO2% (BldA) [Mass fraction] 94 % Dr. Kamilah Patel Work Phone: [facility] Work Phone: 01-30-2022 08:06-0400 Systolic blood pressure 132 mm[Hg] Dr. Kamilah Patel Work Phone: [facility] Work Phone: 01-24-2022 13:49-0400 Body height 160.[address] Kamilah Patel Work Phone: [facility] Work Phone: 01-24-2022 13:49-0400 Body mass index (BMI) [Ratio] 32.8 kg/m2 Dr. Kamilah Patel Work Phone: [facility] Work Phone: 01-24-2022 13:49-0400 Body temperature 97.8 [degF] Dr. Kamilah Patel Work Phone: [facility] Work Phone: 01-24-2022 13:49-0400 Body weight 83.[address] Kamilah Patel Work Phone: [facility] Work Phone: 01-24-2022 13:49-0400 Diastolic blood pressure 62 mm[Hg] Dr. Kamilah Patel Work Phone: [facility] Work Phone: 01-24-2022 13:49-0400 Heart rate 76 /min Dr. Kamilah Patel Work Phone: [facility] Work Phone: 01-24-2022 13:49-0400 Respiratory rate 16 /min Dr. Kamilah Patel Work Phone: [facility] Work Phone: 01-24-2022 13:49-0400 SaO2% (BldA) [Mass fraction] 97 % Dr. Kamilah Patel Work Phone: [facility] Work Phone: 01-24-2022 13:49-0400 Systolic blood pressure 117 mm[Hg] Dr. Kamilah Patel Work Phone: [facility] Work Phone: 12-27-2021 14:25-0400 Body temperature 98 [degF] Dr. Kamilah Patel Work Phone: [facility] Work Phone: 12-27-2021 14:25-0400 Diastolic blood pressure 74 mm[Hg] Dr. Kamilah Patel Work Phone: [facility] Work Phone: 12-27-2021 14:25-0400 Heart rate 84 /min Dr. Kamilah Patel Work Phone: [facility] Work Phone: 12-27-2021 14:25-0400 SaO2% (BldA) [Mass fraction] 93 % Dr. Kamilah Patel Work Phone: [facility] Work Phone: 12-27-2021 14:25-0400 Systolic blood pressure 113 mm[Hg] Dr. Kamilah Patel Work Phone: [facility] Work Phone: 11-23-2021 13:04-0400 Body height 160.[address] Kamilah Patel Work Phone: [facility] Work Phone: 11-23-2021 13:04-0400 Body mass index (BMI) [Ratio] 34 kg/m2 Dr. Kamilah aPtel Work Phone: [facility] Work Phone: 11-23-2021 13:04-0400 Body temperature 97.5 [degF] Dr. Kamilah Patel Work Phone: [facility] Work Phone: 11-23-2021 13:04-0400 Body weight 87.[address] Kamilah Patel Work Phone: [facility] Work Phone: 11-23-2021 13:04-0400 Diastolic blood pressure 62 mm[Hg] Dr. Kamilah Patel Work Phone: [facility] Work Phone: 11-23-2021 13:04-0400 Heart rate 60 /min Dr. Kamilah Patel Work Phone: [facility] Work Phone: 11-23-2021 13:04-0400 Respiratory rate 16 /min Dr. Kamilah Patel Work Phone: [facility] Work Phone: 11-23-2021 13:04-0400 SaO2% (BldA) [Mass fraction] 96 % Dr. Kamilah Patel Work Phone: [facility] Work Phone: 11-23-2021 13:04-0400 Systolic blood pressure 119 mm[Hg] Dr. Kamilah Patel Work Phone: [facility] Work Phone: 11-09-2021 14:53-0400 Body temperature 97.9 [degF] Dr. Kamilah Patel Work Phone: [facility] Work Phone: 11-09-2021 14:53-0400 Diastolic blood pressure 74 mm[Hg] Dr. Kamilah Patel Work Phone: [facility] Work Phone: 11-09-2021 14:53-0400 Heart rate 90 /min Dr. Kamilah Patel Work Phone: [facility] Work Phone: 11-09-2021 14:53-0400 Respiratory rate 16 /min Dr. Kamilah Patel Work Phone: [facility] Work Phone: 11-09-2021 14:53-0400 SaO2% (BldA) [Mass fraction] 96 % Dr. Kamilah Patel Work Phone: [facility] Work Phone: 11-09-2021 14:53-0400 Systolic blood pressure 116 mm[Hg] Dr. Kamilah Patel Work Phone: [facility] Work Phone: 10-21-2021 08:56-0400 Body temperature 96.5 [degF] Dr. Kamilah Patel Work Phone: [facility] Work Phone: 10-21-2021 08:56-0400 Diastolic blood pressure 70 mm[Hg] Dr. Kamilah Patel Work Phone: [facility] Work Phone: 10-21-2021 08:56-0400 Heart rate 67 /min Dr. Kamilah Patel Work Phone: [facility] Work Phone: 10-21-2021 08:56-0400 SaO2% (BldA) [Mass fraction] 96 % Dr. Kamilah Patel Work Phone: [facility] Work Phone: 10-21-2021 08:56-0400 Systolic blood pressure 137 mm[Hg] Dr. Kamilah Patel Work Phone: [facility] Work Phone: 09-02-2021 13:53-0400 Body height 160.[address] Kamilah Patel Work Phone: [facility] Work Phone: 09-02-2021 13:53-0400 Body temperature 97.4 [degF] Dr. Kamilah Patel Work Phone: [facility] Work Phone: 09-02-2021 13:53-0400 Diastolic blood pressure 62 mm[Hg] Dr. Kamilah Patel Work Phone: [facility] Work Phone: 09-02-2021 13:53-0400 Heart rate 79 /min Dr. Kamilah Patel Work Phone: [facility] Work Phone: 09-02-2021 13:53-0400 Respiratory rate 16 /min Dr. Kamilah Patel Work Phone: [facility] Work Phone: 09-02-2021 13:53-0400 SaO2% (BldA) [Mass fraction] 94 % Dr. Kamilah Patel Work Phone: [facility] Work Phone: 09-02-2021 13:53-0400 Systolic blood pressure 106 mm[Hg] Dr. Kamilah Patel Work Phone: [facility] Work Phone: 08-05-2021 13:27-0400 Body height 160.[address] Kamilah Patel Work Phone: [facility] Work Phone: 08-05-2021 13:27-0400 Body temperature 96.9 [degF] Dr. Kamilah Patel Work Phone: [facility] Work Phone: 08-05-2021 13:27-0400 Diastolic blood pressure 63 mm[Hg] Dr. Kamilah Patel Work Phone: [facility] Work Phone: 08-05-2021 13:27-0400 Heart rate 84 /min Dr. Kamilah Patel Work Phone: [facility] Work Phone: 08-05-2021 13:27-0400 Respiratory rate 20 /min Dr. Kamilah Patel Work Phone: [facility] Work Phone: 08-05-2021 13:27-0400 SaO2% (BldA) [Mass fraction] 95 % Dr. Kamilah Patle Work Phone: [facility] Work Phone: 08-05-2021 13:27-0400 Systolic blood pressure 110 mm[Hg] Dr. Kamilah Patel Work Phone: [facility] Work Phone: 07-07-2021 10:02-0400 Body height 160.[address] Kamilah Patel Work Phone: [facility] Work Phone: 07-07-2021 10:02-0400 Body mass index (BMI) [Ratio] 33.6 kg/m2 Dr. Kamilah Patel Work Phone: [facility] Work Phone: 07-07-2021 10:02-0400 Body temperature 97.5 [degF] Dr. Kamilah Patel Work Phone: [facility] Work Phone: 07-07-2021 10:02-0400 Body weight 86.[address] Kamilah Patel Work Phone: [facility] Work Phone: 07-07-2021 10:02-0400 Diastolic blood pressure 82 mm[Hg] Dr. Kamilah Patel Work Phone: [facility] Work Phone: 07-07-2021 10:02-0400 Heart rate 77 /min Dr. Kamilah Patel Work Phone: [facility] Work Phone: 07-07-2021 10:02-0400 Respiratory rate 19 /min Dr. Kamilah Patel Work Phone: [facility] Work Phone: 07-07-2021 10:02-0400 SaO2% (BldA) [Mass fraction] 92 % Dr. Kamilah Patel Work Phone: [facility] Work Phone: 07-07-2021 10:02-0400 Systolic blood pressure 128 mm[Hg] Dr. Kamilah Patel Work Phone: [facility] Work Phone: 05-20-2021 10:07-0500 Body temperature 97.2 [degF] Dr. Kamilah Patel Work Phone: [facility] Work Phone: 05-20-2021 10:07-0500 Diastolic blood pressure 70 mm[Hg] Dr. Kamilah Patel Work Phone: [facility] Work Phone: 05-20-2021 10:07-0500 Heart rate 91 /min Dr. Kamilah Patel Work Phone: [facility] Work Phone: 05-20-2021 10:07-0500 Respiratory rate 16 /min Dr. Kamilah Patel Work Phone: [facility] Work Phone: 05-20-2021 10:07-0500 SaO2% (BldA) [Mass fraction] 96 % Dr. Kamilah Patel Work Phone: [facility] Work Phone: 05-20-2021 10:07-0500 Systolic blood pressure 118 mm[Hg] Dr. Kamilah Patel Work Phone: [facility] Work Phone: 04-18-2021 05:33-0500 Body temperature 97.5 [degF] Dr. Kamilah Patel Work Phone: [facility] Work Phone: 04-18-2021 05:33-0500 Diastolic blood pressure 68 mm[Hg] Dr. Kamilah Patel Work Phone: [facility] Work Phone: 04-18-2021 05:33-0500 Heart rate 68 /min Dr. Kamilah Patel Work Phone: [facility] Work Phone: 04-18-2021 05:33-0500 Respiratory rate 18 /min Dr. Kamilah Patel Work Phone: [facility] Work Phone: 04-18-2021 05:33-0500 SaO2% (BldA) [Mass fraction] 97 % Dr. Kamilah Patel Work Phone: [facility] Work Phone: 04-18-2021 05:33-0500 Systolic blood pressure 114 mm[Hg] Dr. Kamilah Patel Work Phone: [facility] Work Phone: 04-06-2021 15:50-0500 Body temperature 97.1 [degF] Dr. Kamilah Patel Work Phone: [facility] Work Phone: 04-06-2021 15:50-0500 Diastolic blood pressure 76 mm[Hg] Dr. Kamilah Patel Work Phone: [facility] Work Phone: 04-06-2021 15:50-0500 Heart rate 69 /min Dr. aKmilah Patel Work Phone: [facility] Work Phone: 04-06-2021 15:50-0500 Respiratory rate 18 /min Dr. Kamilah Patel Work Phone: [facility] Work Phone: 04-06-2021 15:50-0500 SaO2% (BldA) [Mass fraction] 93 % Dr. Kamilah Patel Work Phone: [facility] Work Phone: 04-06-2021 15:50-0500 Systolic blood pressure 108 mm[Hg] Dr. Kamilah Patel Work Phone: [facility] Work Phone: 04-04-2021 21:01-0500 Body mass index (BMI) [Ratio] 35.2 kg/m2 Dr. Kamilah Patel Work Phone: [facility] Work Phone: 04-04-2021 21:01-0500 Body temperature 97.6 [degF] Dr. Kamilah Patel Work Phone: [facility] Work Phone: 04-04-2021 21:01-0500 Body weight 90.[address] Kamilah Patel Work Phone: [facility] Work Phone: 04-04-2021 21:01-0500 Diastolic blood pressure 73 mm[Hg] Dr. Kamilah Patel Work Phone: [facility] Work Phone: 04-04-2021 21:01-0500 Heart rate 100 /min Dr. Kamilah Patel Work Phone: [facility] Work Phone: 04-04-2021 21:01-0500 Respiratory rate 20 /min Dr. Kamilah Patel Work Phone: [facility] Work Phone: 04-04-2021 21:01-0500 SaO2% (BldA) [Mass fraction] 93 % Dr. Kamilah Patel Work Phone: [facility] Work Phone: 04-04-2021 21:01-0500 Systolic blood pressure 125 mm[Hg] Dr. Kamilah Patel Work Phone: [facility] Work Phone: 03-11-2021 12:47-0500 Body mass index (BMI) [Ratio] 35 kg/m2 Dr. Kamilah Patel Work Phone: [facility] Work Phone: 03-11-2021 12:47-0500 Body temperature 96.6 [degF] Dr. Kamilah Patel Work Phone: [facility] Work Phone: 03-11-2021 12:47-0500 Body weight 89.[address] Kamilah Patel Work Phone: [facility] Work Phone: 03-11-2021 12:47-0500 Diastolic blood pressure 66 mm[Hg] Dr. Kamilah Patel Work Phone: [facility] Work Phone: 03-11-2021 12:47-0500 Heart rate 75 /min Dr. Kamilah Patel Work Phone: [facility] Work Phone: 03-11-2021 12:47-0500 Respiratory rate 16 /min Dr. Kamilah Patel Work Phone: [facility] Work Phone: 03-11-2021 12:47-0500 SaO2% (BldA) [Mass fraction] 97 % Dr. Kamilah Patel Work Phone: [facility] Work Phone: 03-11-2021 12:47-0500 Systolic blood pressure 136 mm[Hg] Dr. Kamilah Patel Work Phone: [facility] Work Phone: 11-09-2016 15:43-0400 BMI (Body Mass Index) 27.87 kg/m2 Mariel Coronado LPN [facility] Work Phone: 11-09-2016 15:43-0400 Body Temperature 97.7 [degF] Mariel Coronado LPN [facility] Work Phone: 11-09-2016 15:43-0400 BP Diastolic 80 mm[Hg] Mariel Coronado LPN [facility] Work Phone: 11-09-2016 15:43-0400 BP Systolic 126 mm[Hg] Mariel Coronado LPN [facility] Work Phone: 11-09-2016 15:43-0400 Height 162.56 cm Mariel Coronado LPN [facility] Work Phone: 11-09-2016 15:43-0400 Pulse (Heart Rate) 79 /min Mariel Coronado LPN [facility] Work Phone: 11-09-2016 15:43-0400 Respiratory Rate 15 /min Mariel Coronado LPN [facility] Work Phone: 11-09-2016 15:43-0400 Weight 73.66 kg Mariel Coronado LPN [facility] Work Phone: 10-09-2016 12:46-0400 BMI (Body Mass Index) 27.94 kg/m2 Leilani Baron LPN [facility] Work Phone: 10-09-2016 12:46-0400 Body Temperature 97.7 [degF] Leilani Baron LPN [facility] Work Phone: 10-09-2016 12:46-0400 BP Diastolic 72 mm[Hg] Leilani Baron LPN [facility] Work Phone: 10-09-2016 12:46-0400 BP Systolic 108 mm[Hg] Leilani Baron LPN [facility] Work Phone: 10-09-2016 12:46-0400 Height 162.56 cm Leilani Baron LPN [facility] Work Phone: 10-09-2016 12:46-0400 Pulse (Heart Rate) 64 /min Leilani Baron LPN [facility] Work Phone: 10-09-2016 12:46-0400 Pulse Oximetry 95 % Leilani Baron LPN [facility] Work Phone: 10-09-2016 12:46-0400 Respiratory Rate 12 /min Leilani Baron LPN [facility] Work Phone: 10-09-2016 12:46-0400 Weight 73.85 kg Leilani Baron LPN [facility] Work Phone: 09-20-2016 13:04-0400 BMI (Body Mass Index) 28.87 kg/m2 Brisa Ball LPN [facility] Work Phone: 09-20-2016 13:04-0400 Body Temperature 98.4 [degF] Brisa Yensho CLOUD ADMINISTRATOR [facility] [employer] Work Phone: 09-20-2016 13:04-0400 BP Diastolic 73 mm[Hg] Brisa Yensho CLOUD ADMINISTRATOR [facility] [employer] Work Phone: 09-20-2016 13:04-0400 BP Systolic 104 mm[Hg] Brisa Yensho CLOUD ADMINISTRATOR [facility] [employer] Work Phone: 09-20-2016 13:04-0400 Height 160.02 cm Brisa Yensho CLOUD ADMINISTRATOR [facility] [employer] Work Phone: 09-20-2016 13:04-0400 Pulse (Heart Rate) 70 /min Brisa Williamnsho CLOUD ADMINISTRATOR [facility] Work Phone: 09-20-2016 13:04-0400 Pulse Oximetry 96 % Brisa Yensho CLOUD ADMINISTRATOR [facility] [employer] Work Phone: 09-20-2016 13:04-0400 Respiratory Rate 18 /min Brisa Yensho CLOUD ADMINISTRATOR [facility] Work Phone: 09-20-2016 13:04-0400 Weight 73.94 kg Brisa Yensho CLOUD ADMINISTRATOR [facility] [employer] Work Phone: 02-03-2016 12:57-0400 BMI (Body Mass Index) 31.88 kg/m2 Kristen Marie CLOUD ADMINISTRATOR [facility] [employer] Work Phone: 02-03-2016 12:57-0400 Body Temperature 96.62 [degF] Kristen Marie CLOUD ADMINISTRATOR [facility] [employer] Work Phone: 02-03-2016 12:57-0400 Body Temperature 96.6 [degF] Kristen Marie CLOUD ADMINISTRATOR [facility] [employer] Work Phone: 02-03-2016 12:57-0400 BP Diastolic 73 mm[Hg] Kristen Marie CLOUD ADMINISTRATOR [facility] Work Phone: 02-03-2016 12:57-0400 BP Systolic 140 mm[Hg] Kristen Marie CLOUD ADMINISTRATOR [facility] [employer] Work Phone: 02-03-2016 12:57-0400 BSA (Body Surface Area) 1.85 m2 Kristen Marie CLOUD ADMINISTRATOR [facility] [employer] Work Phone: 02-03-2016 12:57-0400 Height 160.02 cm Kristen Marie CLOUD ADMINISTRATOR [facility] [employer] Work Phone: 02-03-2016 12:57-0400 Pulse (Heart Rate) 91 /min Kristen Marie CLOUD ADMINISTRATOR [facility] Work Phone: 02-03-2016 12:57-0400 Pulse Oximetry 97 % Kristen Marie CLOUD ADMINISTRATOR [facility] [employer] Work Phone: 02-03-2016 12:57-0400 Respiratory Rate 18 /min Kristen Marie CLOUD ADMINISTRATOR [facility] [employer] Work Phone: 02-03-2016 12:57-0400 Weight 81.82 kg Kristen Marie CLOUD ADMINISTRATOR [facility] [employer] Work Phone: 02-03-2016 12:57-0400 Weight 81.65 kg Kristen Marie CLOUD ADMINISTRATOR [facility] [employer] Work Phone: 12-30-2015 14:51-0400 Heart rate 62 /min Kristen Marie CLOUD ADMINISTRATOR [facility] [employer] Work Phone: Encounters Encounter Date Encounter Type Care Provider Facility Start: 10-17-2024 End: 10-17-2024 Patient encounter procedure Cathie De Jesus [employer] -Medical Out Work Phone: Start: 10-17-2024 End: 10-17-[address] Naomi Whyte DO Work Phone: -Medical Out Start: 09-10-2024 End: 09-10-2024 Patient encounter procedure Cathie De Jesus [employer] -[facility] Work Phone: Start: 09-10-2024 End: 09-10-[address] Naomi Whyte DO Work Phone: [facility] Work Phone: Start: 09-05-2024 ambulatory Naomi Whyte Facility:[facility] Start: 08-08-2024 ambulatory Naomianisa Whyte Facility:[facility] Start: 07-04-2024 End: 07-04-2024 Patient encounter procedure Cathie De Jesus [employer] -Medical Out Work Phone: Start: 07-04-2024 End: 07-04-[address] Naomi Whyte DO Work Phone: [facility] Work Phone: Start: 06-03-2024 ambulatory Cathie De Jesus [employer] Fac ility:[facility] Start: 04-25-2024 End: 04-25-2024 Patient encounter procedure Cathie De Jesus [employer] -Medical Out Work Phone: Start: 04-25-2024 End: 04-25-2024 ambulatory Cathie De Jesus NP Facility:[facility] Start: 03-21-2024 End: 03-21-2024 Patient encounter procedure Cathie De Jesus [employer] -Medical Out Work Phone: Start: 03-21-2024 End: 03-21-2024 ambulatory Cathie De Jesus [employer] Facility:[facility] Start: 03-12-2024 End: 03-12-2024 Patient encounter procedure Cathie De Jesus [employer] -[facility] Work Phone: Start: 03-12-2024 End: 03-12-2024 ambulatory Naomi Whyte [place] [place] Start: 02-29-2024 ambulatory Cathie De Jesus [employer] Fac ility:[facility] Start: 02-14-2024 End: 02-14-2024 ambulatory Angel Patel [place] [place] Start: 01-18-2024 End: 01-18-2024 ambulatory Cathie De Jesus [employer] Facility:[facility] Start: 12-28-2023 End: 12-28-2023 ambulatory Kamilah Patel Facility:[facility] Start: 12-14-2023 End: 12-14-2023 ambulatory Cathie De Jesus [employer] Facility:[facility] Start: 11-09-2023 End: 11-09-2023 ambulatory Cathie De Jesus [employer] Facility:[facility] Start: 08-15-2023 End: 08-15-[address] Kamilah Patel Work Phone: [facility] Work Phone: Start: 08-15-2023 End: 08-15-[address] Kamilah Patel Work Phone: [facility]-Medical Out Work Phone: Start: 08-02-2023 End: 08-02-[address] Kamilah Patel Work Phone: [facility] Work Phone: Start: 06-15-2023 End: 06-15-[address] Kamilah Patel Work Phone: [facility] Work Phone: Start: 06-15-2023 End: 06-15-[address] Kamilah Patel Work Phone: [facility]-Medical Out Work Phone: Start: 05-18-2023 End: 05-18-[address] Kamilah Patel Work Phone: [facility] Work Phone: Start: 05-18-2023 End: 05-18-[address] Kamilah Patel Work Phone: [facility]-Medical Out Work Phone: Start: 05-16-2023 End: 05-16-[address] Kamilah Patel Work Phone: [facility] Work Phone: Start: 04-20-2023 End: 04-20-[address] Kamilah Patel Work Phone: [facility] Work Phone: Start: 04-20-2023 End: 04-20-[address] [facility] Work Phone: Start: 03-26-2023 End: 03-26-[address] Kamilah Patel Work Phone: [facility] Work Phone: Start: 03-26-2023 End: 03-26-[address] Kamilah Patel Work Phone: [facility]-Outpatient Breast Imaging Work Phone: Start: 02-23-2023 End: 02-23-[address] Kamilah Patel Work Phone: [facility] Work Phone: Start: 02-23-2023 End: 02-23-[address] Kamilah Patel Work Phone: [facility]-Medical Out Work Phone: Start: 2023 End: [address] Kamilah Patel Work Phone: [facility]-Pulmonary [facility] Work Phone: Start: 01-26-2023 End: 01-26-[address] [facility] Work Phone: Start: 01-26-2023 End: 01-26-2023 Patient encounter procedure [facility]-Medical Out Work Phone: Start: 12-29-2022 End: 12-29-[address] [facility] Work Phone: Start: 12-29-2022 End: 12-29-2022 Patient encounter procedure [facility]-Medical Out Work Phone: Start: 12-21-2022 End: 12-21-[address] [facility] Work Phone: Start: 12-21-2022 End: 12-21-2022 Patient encounter procedure [facility]-Cat Scan, [facility] Work Phone: Start: 12-15-2022 End: 12-15-2022 Emergency department patient visit [facility]-Emergency Department Work Phone: Start: 12-01-2022 End: 12-01-[address] [facility] Work Phone: Start: 12-01-2022 End: 12-01-2022 Patient encounter procedure [facility]-Medical Out Work Phone: Start: 11-02-2022 End: 11-02-2022 Patient encounter procedure [facility] Out Work Phone: Start: 09-28-2022 End: 09-28-[address] Kamilah Patel Work Phone: [facility] Work Phone: Start: 09-28-2022 End: 09-28-[address] Kamilah Patel Work Phone: [facility]-Medical Out Start: 08-24-2022 End: 08-24-[address] Kamilah Patel Work Phone: [facility]-Medical Out Start: 08-01-2022 End: 08-01-[address] Kamilah Patel Work Phone: [facility]-Pulmonary Medicine [facility] Start: 07-27-2022 End: 07-27-[address] [facility] Work Phone: Start: 07-27-2022 End: 07-27-2022 Patient encounter procedure [facility]-Medical Out Start: 06-22-2022 End: 06-22-[address] [facility] Work Phone: Start: 06-22-2022 End: 06-22-2022 Patient encounter procedure [facility]-Medical Out Start: 05-25-2022 End: 05-25-[address] Kamilah Patel Work Phone: [facility] Work Phone: Start: 05-25-2022 End: 05-25-[address] Kamilah Patel Work Phone: [facility]-Medical Out Start: 04-27-2022 End: 04-27-[address] Kamilah Patel Work Phone: [facility]-Medical Out Start: 03-21-2022 End: 03-21-[address] Kamilah Patel Work Phone: [facility] Work Phone: Start: 03-21-2022 End: 03-21-[address] Kamilah Patel Work Phone: [facility]-Medical Out Start: 02-09-2022 End: 02-09-[address] Kamilah Patel Work Phone: [facility] Work Phone: Start: 02-09-2022 End: 02-09-[address] Kamilah Patel Work Phone: [facility]-Sleep Lab Start: 02-08-2022 End: 02-08-[address] Kamilah Patel Work Phone: [facility] Work Phone: Start: 02-08-2022 End: 02-08-[address] [facility] Start: 02-08-2022 End: 02-08-[address] Kamilah Patel Work Phone: [facility] Start: 01-30-2022 End: 01-30-[address] Kamil[facility] Pat[facility] Start: 01-24-2022 End: 01-24-[address] Kamilah Patel Work Phone: [facility] Work Phone: Start: 01-24-2022 End: 01-24-[address] [facility] Start: 12-27-2021 End: 12-27-[address] [facility] Start: 12-19-2021 End: 12-19-[address] Kamilah Patel Work Phone: [facility] Start: 12-15-2021 End: 12-15-[address] Kamilah Patel Work Phone: [facility] Work Phone: Start: 12-15-2021 End: 12-15-[address] Kamilah Paetl Work Phone: [facility] Start: 11-23-2021 End: 11-23-[address] [facility] Pat[facility] Start: 11-10-2021 End: 11-10-[address] Kamil[facility] Pat[facility] Start: 11-09-2021 End: 11-09-[address] Kamilah Patel Work Phone: [facility] Start: 10-21-2021 End: 10-21-[address] [facility] Start: 09-02-2021 End: 09-02-[address] [facility] Start: 08-05-2021 End: 08-05-[address] [facility] Start: 07-07-2021 End: 07-07-[address] Kamil[facility] Pat[facility] Start: 06-28-2021 End: 06-28-[address] Kamilah Patel Work Phone: [facility]-Cat [facility], [facility] Start: 05-20-2021 End: 05-20-[address] Kam[facility] Start: 04-18-2021 End: 04-18-[address] Kamilah Patel Work Phone: [facility] Start: 04-06-2021 End: 04-06-[address] Kamilah Patel Work Phone: [facility] Start: 04-04-2021 End: 04-04-2021 Emergency department patient visit Dr. Kamilah Patel Work Phone: [facility]-Emergency Department Start: 03-11-[address] Kamilah Patel Work Phone: [facility]-Medical Out Procedures Date Procedure Procedure Detail Performing Clinician Start: 03-26-2023 Screening mammography D whit Patel Work Phone: Start: 12-21-2022 CT of chest Start: 12-15-2022 Viral antigen assay Start: 12-15-2022 Plain chest X-ray Start: 12-19-2021 CT of chest without contrast Dr. Kamilah Patel Work Phone: Start: 06-28-2021 CT of chest without contrast Dr. Kamilah Patel Work Phone: Start: 11-09-2016 End: 11-09-2016 Urinalysis Mariel Coronado CLOUD ADMINISTRATOR Start: 11-09-2016 End: 11-09-2016 Urnls dip stick/tablet rgnt non-auto w/o micrscp [employer] Work Phone: Start: 09-20-2016 End: 09-20-2016 Dietary management education, guidance, and counseling Brisa Ball CLOUD ADMINISTRATOR Start: 02-03-2016 End: 02-03-2016 Dietary management education, guidance, and counseling Kristen Marie CLOUD ADMINISTRATOR Start: 02-03-2016 End: 03-13-2016 DMB Cathie Esquivel [employer] Work Phone: Start: 02-03-2016 End: 03-13-2016 Follow Up Appt 6 months Cathie hernandez WAREHOUSE GUARD Work Phone: Start: 02-03-2016 End: 02-04-2016 Referral to neurologist Cathie hernandez WAREHOUSE GUARD Work Phone: Start: 01-03-2016 End: 03-13-2016 [facility] Cathie Esquivel [employer]ER Work Phone: Start: 01-03-2016 End: 03-13-2016 Follow Up Appt 1 month Cathie sawant WAREHOUSE GUARD Work Phone: Start: 12-30-2015 End: 02-08-2016 Arterial [...] Date Care Activity Detail Author Start: 12-15-[address] [facility] Start: 08-01-2022 Patient referral [facility] Work Phone: Start: 03-19-2017 End: 03-19-2017 Appointment Appointment [facility] Work Phone: Start: 11-09-2016 End: 11-09-2016 Appointment Appointment [facility] Work Phone: Start: 10-09-2016 End: 10-09-2016 Appointment Appointment [facility] Work Phone: Start: 09-20-2016 End: 09-20-2016 Appointment Appointment [facility] Work Phone: Start: 09-20-2016 End: 09-20-2016 [facility] [employer] Work Phone: Start: 09-20-2016 End: 09-20-2016 Follow Up Appt 6 months Follow Up Appt 6 months [facility] Work Phone: Start: 02-03-2016 End: 03-13-2016 DMB DMB [facility] [employer] Work Phone: Start: 02-03-2016 End: 03-13-2016 Follow Up Appt 6 months Follow Up Appt 6 months [facility] [employer] Work Phone: Start: 02-03-2016 End: 03-13-2016 Neurology Referral Neurology Referral [facility] [employer] Work Phone: Start: 01-25-2016 End: 01-25-2016 Vascular Surgery Vascular Surgery Janak Crawley MD, [address], [facility] [address], [place], [address] [facility] [employer] Work Phone: Start: 01-03-2016 End: 03-13-2016 [facility] [employer] Work Phone: Start: 01-03-2016 End: 03-13-2016 Follow Up Appt 1 month Follow Up Appt 1 month [facility] [employer] Work Phone: Start: 12-30-2015 End: 12-30-2015 Arterial exam Arterial exam [facility] [employer] Work Phone: Start: 12-30-2015 End: 12-30-2015 Echocardiography Echocardiogram (complete) [facility] [employer] Work Phone: Start: 12-30-2015 End: 12-30-2015 Electrocardiogram, complete EKG (In office) [facility] [employer] Work Phone: Start: 12-30-2015 End: 12-30-2015 Follow Up Appt 6 weeks Follow Up Appt 6 weeks [facility] Phone: Start: 12-30-2015 End: 12-30-2015 Follow Up Appt Other Follow Up Appt Other [facility] Phone: Start: 12-30-2015 End: 12-30-2015 MMM MMM [facility] Phone: Start: 12-30-2015 End: 12-30-2015 Nuclear stress test -Lexiscan Nuclear stress test -Lexiscan [facility] Phone: Start: 12-30-2015 End: 03-13-2016 Titration with Follow up (pt not on cpap) Titration with Follow up (pt not on cpap) [facility] Phone: Start: 12-02-2015 End: 12-30-2015 Complete sleep workup (PSG,CPAP as indicated) & Follow up Complete sleep workup (PSG,CPAP as indicated) & Follow up [facility] Phone: Start: 12-02-2015 End: 12-02-2015 [facility] Phone: Start: 12-02-2015 End: 12-02-2015 Follow Up Appt 1 month Follow Up Appt 1 month [facility] Phone: Start: 12-02-2015 End: 12-02-2015 Pulmonary Function Test - complete Pulmonary Function Test - complete [facility] Phone: Start: 12-02-2015 End: 12-30-2015 Pulmonary stress test/simple Pulmonary stress testing; simple (eg, 6-minute walk) [facility] Phone: Blood chemistry [facility] Brain natriuretic pe ptide measurement [facility] CT [facility] Patient Education [facility] Work Phone: Patient referral [facility] Work Phone: XR Chest PA and Lateral os [facility] Immunizations Immunization Date Immunization Notes Care Provider Roxi yoder 11-22-2015 diphtheria, tetanus toxoids and acellular pertussis vaccine, unspecified formulation; Translations: [CZTAVBO-ZUPUUM-XIZZA PERTUSSIS] Kristen Marie LPN [facility] Work Phone: 11-22-2015 pneumococcal vaccine , unspecified formulation; Translations: [PNEUMOCOCCAL 13-FAVIAN CONJ VACC] Kristen Marie LPN [facility] Work Phone: 11-22-2015 varicella zoster imm une globulin; Translations: [ZOSTER VACCINE LIVE] Kristen Marie LPN [facility] Work Phone: Payers Date Payer Category Payer Self-pay [id number] 2023 Medicare [id number] 2023 Unknown [id number] Medicaid [id number] Unknown [id number] Unknown [id number] Unknown [id number] 2.16.8 [id number] Unknown [id number] 2.16.8 [id number] Unknown [id number] 2.16.8 [id number] Unknown [id number] 2.16.8 [id number] Unknown [id number] 2.16.8 [id number] Unknown [id number] 2.16.8 40.1.397841.3.579.2.462 Unknown [id number] 2.16.8 40.1.342867.3.579.2.462 Unknown [id number] 2.16.8 40.1.959307.3.579.2.462 Unknown [id number] 2.16.8 40.1.501629.3.579.2.462 Unknown [id number] 2.16.8 40.1.163549.3.579.2.462 Unknown [id number] 2.16.8 40.1.829438.3.579.2.462 Unknown [id number] 2.16.8 40.1.488070.3.579.2.462 Unknown [id number] 2.16.8 40.1.984469.3.579.2.462 Unknown [id number] 2.16.8 40.1.359608.3.579.2.462 Unknown [id number] 2.16.8 40.1.853204.3.579.2.462 Unknown [id number] 2.16.8 40.1.314040.3.579.2.462 Unknown [id number] 2.16.8 [id number] Unknown [id number] 2.16.8 [id number] Social History Date Type Detail Facility Start: 07-07-2021 End: 08-02-2023 Tobacco smoking status ALIS Unknown if ever smoked [facility] Start: 1955 Sex Assigned At Female [facility] Start: 08-02-2023 Tobacco smoking stat us ALIS Ex-smoker (finding) [facility] Start: 07-05-2024 Sex Female (finding) [facility] Mental Status Date Assessment Result Facility 10-17-2024 Cognitive function Awake;Alert;A ppropriate;Follo ws Commands [facility] Work Phone: 09-10-2024 Cognitive function Voice/Name [facility] Work Phone: 07-04-2024 Cognitive function Awake;Alert;A ppropriate;Follo [facility] Work Phone: 03-21-2024 Cognitive function Awake;Alert;A ppropriate;Follo [facility] Work Phone: 08-15-2023 Cognitive function Awake;Alert;A ppropriate;Follo [facility] Work Phone: 06-15-2023 Cognitive function Voice/Name [facility] Work Phone: 04-20-2023 Cognitive function Voice/Name [facility] Work Phone: 02-23-2023 Cognitive function Awake;Alert;A ppropriate;[facility] Work Phone: 01-26-2023 Cognitive function Voice/Name [facility] Work Phone: 12-29-2022 Cognitive function Awake;Alert;A ppropriate;[facility] Work Phone: 12-01-2022 Cognitive function Awake;Alert;A ppropriate;Follo [facility] Work Phone: 11-02-2022 Cognitive function Voice/Name [facility] Work Phone: 09-28-2022 Cognitive function Awake;Alert;A ppropriate;Follo [facility] Work Phone: 08-24-2022 Cognitive function Voice/Name [facility] Work Phone: 07-27-2022 Cognitive function Awake;Alert;A ppropriate;Follo [facility] Work Phone: 06-22-2022 Cognitive function Level Of Cons ciousness Awake;Alert;Appropriate;Follo [facility] Work Phone: 05-25-2022 Cognitive function Voice/Name [facility] Work Phone: 04-27-2022 Cognitive function Voice/Name [facility] Work Phone: 03-21-2022 Cognitive function Level Of Cons ciousness Awake;Alert;Appropriate;Follo ws [facility] Work Phone: 01-24-2022 Cognitive function Voice/Name [facility] Work Phone: 12-27-2021 Cognitive function Level Of Cons ciousness Awake;Alert;Appropriate;Follo ws [facility] Work Phone: 11-23-2021 Cognitive function Voice/Name [facility] Work Phone: 10-21-2021 Cognitive function Level Of Cons ciousness Awake;Alert;Appropriate;Follo [facility] Work Phone: 09-02-2021 Cognitive function Awake;Alert;A ppropriate;Follo [facility] Work Phone: 08-05-2021 Cognitive function Voice/Name [facility] Work Phone: 05-20-2021 Cognitive function Awake;Alert;A ppropriate;[facility] Work Phone: 03-11-2021 Cognitive function Voice/Name [facility] Work Phone: Clinical Notes 12-15-2022 to 09-10-2024 Note Date & Type Note Facility 09-10-2024 Evaluation note Diagnosis Onset Date Resolution Asthma-COPD overlap syndrome chronic September 10, 2024 1 :33pm Tobacco abuse, in remission chronic September 10, 2024 1 :33pm [facility] Work Phone: [phone] Evaluation note* Diagnosis Onset Date Resolution Status Admit Date Asthma-COPD overlap syndrome chronic September 10, 2024 1:33pm PHILIP (obstructive sleep apnea) chroni c September 10, 2024 1:33pm Tobacco abuse, in remission chronic September 10, 2024 1:33pm [facility] Work Phone: 1(319) 386-187612-04-2024 Evaluation note* Diagnosis Onset Date Resolution Status Admit Date Asthma-COPD overlap syndrome chronic March 12, 2024 12:29pm PHILIP (obstructive sleep apnea) chronic March 12 12:29pm Tobacco abuse, in remission chronic March 12, 2024 12:29pm [facility] Work Phone: [phone] Discharge summary Author Jagdish Day [facility] December 15, 2022 9:50am Note Date/Time December 15, 2022 7:33am [facility] Medical Records Department [address] [place] [address] Emergency Department Summary 12/15/22 MR#: [id number] Acct: [id number] Name: TARSHA GONZALEZ Rep #:[id number] : [...] PFSH Medical History Atherosclerotic heart disease of [place] coronary artery without angina pectoris Cardiac murmur, [...] (Auto) 46.2 L Lymph % (Auto) 40.1 Hanson % (Auto) 11.0 H Eos % (Auto) [...] Signed: Apolonia Keenan MD at 8:06 EDT , Chest x-ray, portable, single view interpreted both by myself and the radiologist shows no acute abnormality. Normal cardiac silhouette. Normal lungfields. Rhythm Strip Rhythm Strip: Sinus Rhythm Rate: 87 Ectopy: None EKG Initial EKG: Attestation: I personally reviewed and interpreted this EKG as follows: Interpretation: Sinus Rhythm and No Acute Injury Pattern Comments: Normal sinus rhythm rate 87 no acute signs of [place]. Discharge Plan Triage Chief Complaint: Shortness of [...] problems, contact your Primary Care Provider. Call [facility] ([phone]) or report to the closest Emergency Room. Call 911 if necessary. 12/15/22 0950 <Electronically signed by Jagdish Day MD> Cosigner Signature (if applicable): CC: Dr. Kamilah Patel MD ~ Signed [facility] Work Phone: Evaluation note* Diagnosis Onset Date Resolution Status COVID-19 acute Acute pharyngitis acute Asthma-COPD overlap syndrome chronic Lung nodule chronic PHILIP (obstructive sleep apnea) chronic [facility] Work Phone: Evaluation note* Diagnosis Onset Date Resolution Status Acute pharyngitis acute Asthma-COPD overlap syndrome chronic Lung nodule chronic PHILIP (obstructive sleep apnea) [facility] Work Phone: Evaluation note* Diagnosis Onset Date Resolution Status Asthma-COPD overlap syndrome chronic Lung nodule chronic PHILIP (obstructive sleep apnea) [facility] Work Phone: Evaluation note* Diagnosis Onset Date Resolution Status Urinary tract infection with hematuria acute [facility] Work Phone: Evaluation note* Diagnosis Onset Date Resolution Status Urinary tract infection with hematuria acute Asthma-COPD overlap syndrome chronic PHILIP (obstructive sleep apnea) chronic Tobacco abuse, in remission chronic Urinary tract infection with hematuria acute [facility] Work Phone: Evaluation note* Diagnosis Onset Date Resolution Status Asthma-COPD overlap syndrome chronic PHILIP (obstructive sleep apnea) chronic Tobacco abuse, in remission chronic Urinary tract infection with hematuria acute [facility] Work Phone: Evaluation noteNo assessment information available [facility] Work Phone: Evaluation note* Diagnosis Onset Date Resolution Status Asthma-COPD overlap syndrome chronic PHILIP (obstructive sleep apnea) chronic Tobacco abuse, in remission chronic [facility] Work Phone: Evaluation note* Diagnosis Onset Date Resolution Status Asthma-COPD overlap syndrome chronic PHILIP (obstructive sleep apnea) chronic Tobacco abuse, in remission chronic Shortness of breath acute Wheezing acute [facility] Work Phone: Evaluation note* Diagnosis Onset Date Resolution Status Shortness of breath acute Wheezing acute [facility] Work Phone: Evaluation note* Diagnosis Onset Date Resolution Status Shortness of breath acute Wheezing acute Asthma-COPD overlap syndrome chronic Tobacco abuse, in remission chronic [facility] Work Phone: Hospital Discharge instructions Additional Instructions Plenty of fluids and rest. Your nebulizer at home as needed for wheezing and shortness of breath. Prednisone 40 mg a day for the next 5 days starting tomorrow. Follow-up if not improving or return if worse.[facility] Work Phone: Reason for referral (narrative)No [facility] for [facility] Work [facility]: Chief Complaint and Reason for [...] Tobacco abuse, in remission September 10 1:33pm Chief Complaint Admit Date NUCALA July 04, 2024 11: 29am 6 M FU September 10, 2024 1:33p m NUCALA September 10, 2024 2:23p m NUCALA October 17, 2024 1:14 pm Family History Relationship Condition Age at Onset Recorded Date/T [...] Malignant neoplasm of colon Unknown Advance Directives Advance Directive Response Recorded Date/ Time Living Will No April 05, 021 12:02am Power of Rvda Master Certified Rv Technician No April 05, 2021 12:02am Advance Directive Response Recorded Date/ Time Living Will No April 04, 021 11:02pm Power of Rvda Master Certified Rv Technician No April 04, 2021 11:02pm Advance Directive Response Recorded Date/ Time Living Will No December 15, 2 023 7:23am Power of Rvda Master Certified Rv Technician No December 15, 2022 7:23am Advance Directive Response Recorded Date/ Time Living Will No December 15, 2 023 6:23am Power of Rvda Master Certified Rv Technician No December 15, 2022 6:23am Advance Directive Response Recorded Date/ Time Living Will No December 15, 023 7:23am Do you have a Healthcare Power of Rvda Master Certified Rv Technician? No December 15, 2022 7:23am Summary Purpose [...] Kamilah Patel MD Primary Care Provider Active SWETHA Herr Attending Provider Active Team Status: Inactive Member Role Status Dates Dr. Kamilah Patel MD Primary Care Provider Active Cathie De Jesus [employer], [employer]ONDENCE [employer]CHOOL TEACHER-C Attending Provider, Referrin g Provider Active Team Status: Inactive Member Role Status Dates Dr. Kamilah Patel MD Primary Care Provider, Referrin g Provider Active Cathie De Jesus [employer]ER, [employer]RES[employer]ENCE [employer]OL TEACHER-C Attending Provider Active Team Status: Inactive Member [...] End: March 12, 2024 Cathie De Jesus [employer]ENCE SCHO[employer] TE[employer]ER, [employer]RESPONDENCE SCHOOL TEACHER-C Attending Provider Active Start: March 12, 2024 End: March 12, 2024 Team Status: Inactive Member Role Status Dates Dr. Naomi Whyte DO Primary Care Provider Active Start: March 21, 2024 End: March 21, 2024 Cathie De Jesus [employer]ENCE SCHO[employer] TE[employer]ER, CORRESPONDENCE SCHOOL TEACHER-C Attending Provider Active Start: March 21, 2024 End: March 21, 2024 Cathie De Jesus [employer]ENCE SCHOOL TEACHER, [employer]RESPONDENCE SCHOOL TEACHER-C Referring Provider Active Start: March 21, 2024 End: March 21, 2024 Team Status: Inactive Member Role Status Dates Dr. Naomi Whyte DO Primary Care Provider Active Start: April 25, 2024 End: April 25, 2024 Cathie De Jesus [employer]ENCE SCHO[employer] TE[employer]ER, [employer]RESPONDENCE SCHOOL TEACHER-C Attending Provider Active Start: April 25, 2024 End: April 25, 2024 Cathie De Jesus [employer]RES[employer]ENCE SCHOOL TEACHER, CORRESPONDENCE SCHOOL TEACHER-C Referring Provider Active Start: April 25, 2024 End: April 25, 2024 Team Status: Inactive Member Role Status Dates Dr. Naomi Whyte DO Primary Care Provider Active Start: July 04, 2024 End: July 04, 2024 Cathie De Jesus [employer]RES[employer]ENCE SCHO[employer] TEACHER, CORRESPONDENCE SCHOOL TEACHER-C Attending Provider Active Start: July 04, 2024 End: July 04, 2024 Cathie De Jesus [employer]RESPONDENCE SCHOOL TEACHER, CORRESPONDENCE SCHOOL TEACHER-C Referring Provider Active Start: July 04, 2024 End: July 04, 2024 Team Status: Inactive Member Role Status Dates Dr. Naomi Whyte DO Primary Care Provider Active Start: September 10, 2024 End: September 10, 2024 Dr. Naomi Whyte DO Referring Provider Active St art: September 10, 2024 End: September 10, 2024 Cathie De Jesus [employer]ENCE SCHO[employer] TEACHER, CORRESPONDENCE SCHOOL TEACHER-C Attending Provider Active Start: September 10, 2024 End: September 10, 2024 Team Status: Active Member Role Status Dates Dr. Naomi Whyte DO Primary Care Provider Active Start: September 10, 2024 Cathie De Jesus [employer]RES[employer]ONDENCE SCHO[employer] TEACHER, CORRESPONDENCE SCHOOL TEACHER-C Attending Provider Active Start: September 10, 2024 Cathie De Jesus [employer]RESPONDENCE SCHOOL TEACHER, CORRESPONDENCE SCHOOL TEACHER-C Referring Provider Active Start: September 10, 2024 Team Status: Inactive Member Role Status Dates Dr. Naomi Whyte DO Primary Care Provider Active Start: September 10, 2024 End: September 10, 2024 Cathie De Jesus [employer]ENCE SCHO[employer] TEACHER, [employer]RESPONDENCE SCHOOL TEACHER-C Attending Provider Active Start: September 10, 2024 End: September 10, 2024 Cathie De Jesus [employer]ENCE SCHOOL TEACHER, [employer]RESPONDENCE SCHOOL TEACHER-C Referring Provider Active Start: September 10, 2024 End: September 10, 2024 Team Status: Active Member Role/Relationship Status Dates Dr. Naomi Whyte DO Primary Care Provider Active Team Status: Inactive Member Role/Relationship Status Dates Dr. Naomi Whyte DO Primary Care Provider Active Start: July 04, 2024 End: July 04, 2024 Cathie De Jesus [employer]ONDENCE SCHOOL TEACHER, [employer]RESPONDENCE SCHOOL TEACHER-C Attending Provider Active Start: July 04, 2024 End: July 04, 2024 Cathie De Jesus [employer]RESPONDENCE SCHOOL TEACHER, CORRESPONDENCE SCHOOL TEACHER-C Referring Provider Active Start: July 04, 2024 End: July 04, 2024 Team Status: Inactive Member Role/Relationship Status Dates Dr. Naomi Whyte DO Primary Care Provider Active Start: September 10, 2024 End: September 10, 2024 Dr. Naomi Whyte DO Referring Provider Active St art: September 10, 2024 End: September 10, 2024 Cathie De Jesus [employer]RES[employer]ONDENCE SCHOOL TEACHER, [employer]RESPONDENCE SCHOOL TEACHER-C Attending Provider Active Start: September 10, 2024 End: September 10, 2024 Team Status: Inactive Member Role/Relationship Status Dates Dr. Naomi Whyte DO Primary Care Provider Active Start: September 10, 2024 End: September 10, 2024 Cathie De Jesus [employer]RES[employer]ONDENCE SCHOOL TEACHER, CORRESPONDENCE SCHOOL TEACHER-C Attending Provider Active Start: September 10, 2024 End: September 10, 2024 Cathie De Jesus [employer]RESPONDENCE SCHOOL TEACHER, CORRESPONDENCE SCHOOL TEACHER-C Referring Provider Active Start: September 10, 2024 End: September 10, 2024 Team Status: Inactive Member Role/Relationship Status Dates Dr. Naomi Whyte DO Primary Care Provider Active Start: October 17, 2024 End: October 17, 2024 Cathie De Jesus [employer]RESPONDENCE SCHOOL TEACHER, CORRESPONDENCE SCHOOL TEACHER-C Attending Provider Active Start: October 17, 2024 End: October 17, 2024 Cathie De Jesus [employer]RESPONDENCE SCHOOL TEACHER, CORRESPONDENCE SCHOOL TEACHER-C Referring Provider Active Start: October 17, 2024 End: October 17, 2024 Team Status: Active Member Role/Relationship Status Dates Dr. Naomi Whyte DO Primary Care Provider Active Start: October 17, 2024 Dr. Naomi Whyte DO Attending Provider Active St art: October 17, 2024 Team Status: Inactive Member Role/Relationship Status Dates Dr. Naomi Whyte DO Primary Care Provider Active Start: October 17, 2024 End: October 17, 2024 Dr. Naomi Whyte DO Attending Provider Active St art: October 17, 2024 End: October 17, 2024 INFORMATION SOURCE (unrecogn ized section and content) DATE CREATED AUTHOR 10/22/2024 [facility] FOR RECORDS PERTAINING TO PATIENTS WHO ARE [...] BE BASED ON THE PRIMARY CLINICAL RECORDS. [employer] provides no warranty or guarantee of the accuracy or completeness of information in this document.
--- NOTE | 2024-10-24 07:13 | ECHOD_ITS ---
Reason For Study Reason For Study: DYSPNEA/SOB Procedure This was a 2D Doppler, Color Flow transthoracic echocardiogram. The study was technically difficult. Exam performed in department. Left Ventricle Normal size and thickness. The LV ejection fraction is 65 %. Diastolic function is indeterminate. Right Ventricle Normal right ventricle. Atria The left atrium is mildly enlarged. Normal right atrium. Mitral Valve Mild mitral annular calcification. Trivial mitral valve insufficiency. Tricuspid Valve Normal tricuspid valve. Aortic Valve Trisinus/trileaflet aortic valve. Pulmonic Valve The pulmonic valve is not well visualized. Great Vessels Normal sized aortic root. Pericardium/Pleural No pericardial effusion. MMode/2D Measurements & Calculations LVIDd: 4.1 cm IVSd: 0.94 cm Ao root diam: 2.6 cm LVIDs: 3.0 cm LVPWd: 0.97 cm LA dimension: 4.0 cm RVDd: 2.3 cm FS: 25.9 % LAV(MOD-bp): 54.0 ml LVAd ap4: 22.2 cm2 LVAd ap2: 23.3 cm2 LAV(MOD-bp) Indexed: 27.5 ml/m2 LVLd ap4: 7.6 cm LVLd ap2: 7.6 cm LAV(MOD-sp2): 53.2 ml EDV(MOD-sp4): 54.4 ml EDV(MOD-sp2): 58.2 ml LAV(MOD-sp4): 53.2 ml EDV(sp4-el): 55.3 ml EDV(sp2-el): 60.7 ml LVAs ap4: 11.9 cm2 LVAs ap2: 12.2 cm2 LVLs ap4: 6.4 cm LVLs ap2: 6.2 cm ESV(MOD-sp4): 20.1 ml ESV(MOD-sp2): 20.2 ml ESV(sp4-el): 18.9 ml ESV(sp2-el): 20.2 ml EF(MOD-sp4): 63.0 % EF(MOD-sp2): 65.4 % EF(sp4-el): 65.9 % SV(MOD-sp4): 34.3 ml SV(MOD-sp2): 38.0 ml SV(sp4-el): 36.5 ml SI(MOD-sp4): 17.5 ml/m2 SI(MOD-sp2): 19.4 ml/m2 LA A4 area: 18.7 cm2 LA dimension(2D): 3.5 cm RA A4 area: 8.1 cm2 TAPSE: 2.4 cm Time Measurements MV dec time: 0.20 sec Doppler Measurements & Calculations MV E max jose a: 99.2 cm/sec Lat Peak E' Jose A: 7.9 cm/sec Med Peak E' Jose A: 6.7 cm/sec MV A max jose a: 113.2 cm/sec E/E' lat: 12.5 E/E' med: 14.8 MV E/A: 0.88 MV V2 max: 121.5 cm/sec MV P1/2t max jose a: 115.5 cm/sec Ao V2 max: 161.2 cm/sec MV max P.9 mmHg MV P1/2t: 69.7 msec Ao max P.4 mmHg MV V2 mean: 59.5 cm/sec Ao V2 mean: 101.5 cm/sec MV mean P.7 mmHg MV dec slope: 485.5 cm/sec2 Ao mean P.6 mmHg MV V2 VTI: 35.7 cm MVA(P1/2t): 3.2 cm2 Ao V2 VTI: 35.2 cm AV (velocity ratio): 0.72 LV V1 max: 113.2 cm/sec PA V2 max: 111.3 cm/sec LV V1 max P.1 mmHg PA V2 mean: 74.2 cm/sec LV V1 mean P.3 mmHg LV V1 mean: 69.6 cm/sec LV V1 VTI: 25.2 cm ECHO/Echo Complete Interpretation Summary The LV ejection fraction is 65 %. Diastolic function is indeterminate. The left atrium is mildly enlarged. Mild mitral annular calcification. Ordering Physician: Angel Patel Referring Physician: Naomi Whyte Performed By: Nissa Lundy, KOKO, RVT
--- NOTE | 2024-10-24 09:43 | STRESSREP ---
Stress Test Report Date: 10/24/2024 Procedure: Pharmacologic stress nuclear imaging study Indications: Dyspnea Consent: Per the patient Procedure: The patient underwent pharmacologic (Regadenoson 0.4mg ) evaluation with a peak heart rate of 90 beats per minute (59%predicted maximal heart rate) and a peak blood pressure of 134/72 mmHg. The baseline ECG demonstrated sinus rhythm. The peak pharmacologic ECG did not show any ischemic changes. There were no cardiac dysrhythmias pretest, during pharmacologic infusion, or recovery. There was no complaint of chest discomfort during pharmacologic infusion or recovery. The patient was injected with 15.0 millicuries of technetium 99m Cardiolite and subsequently rest SPECT Cardiolite nuclear imaging was obtained in the horizontal long, vertical long, and short axis views. The patient underwent pharmacologic (Regadenoson) evaluation. The patient was injected with 44.6 millicuries of technetium 99m Cardiolite and subsequently stress SPECT Cardiolite nuclear imaging was obtained in the horizontal long, vertical long, and short axis views. A gated Cardiolite study at peak stress was obtained. The examination was stopped secondary to completion of protocol. Rest and stress SPECT Cardiolite nuclear imaging status post realignment, normalization, and attenuation correction demonstrate no fixed or reversible perfusion defects. There is end systolic thickening and brightening. The gated Cardiolite study demonstrates myocardial thickening and inward wall motion. The reported LVEF is 77%. Impression: 1. Pharmacologic (Regadenoson) evaluation 2. Peak pharmacologic ECG with no ischemic changes. 3. There were no cardiac dysrhythmias pretest, during pharmacologic infusion, or recovery. 5. Rest and stress SPECT Cardiolite nuclear imaging demonstrate relative uniform tracer uptake and myocardial perfusion appearing within normal limits. 6. The gated Cardiolite study reports an LVEF of 77%. This note was generated with [employer] software. It may contain incorrect words, spelling, and punctuation that were not noted in checking the note before signing.
== END | disposition home or self-care (01) ==
PROVIDERS: PCP Family Medicine; Referring Provider Internal Medicine Cardiovascular Disease; Visit Provider Internal Medicine Cardiovascular Disease
DX: R06.02 Shortness of breath (principal); I25.10 Atherosclerotic heart disease of native coronary artery without angina pectoris
CPT/HCPCS: 78452; 93017; 93306; A9500; A4216; J2785

== ENCOUNTER 2024-11-14 12:53 | Outpatient (CLI) | payer MEDICARE, OTHER, SELFPAY ==
[2024-11-14 13:05] VITALS: BP 101/57; PULSE 98; RESP 18; TEMP 35.7; O2SAT 93; BMI 36.6
== END 2024-11-14 23:59 | disposition home or self-care (01) ==
LOC: MEDOUTP 12:53
PROVIDERS: PCP Family Medicine; Referring Provider Nurse Practitioner Acute Care; Visit Provider Nurse Practitioner Acute Care
DX: J45.50 Severe persistent asthma, uncomplicated (principal)
CPT/HCPCS: 96372; J2182

== ENCOUNTER → 2024-11-18 | Outpatient (CLI) | payer MEDICARE, OTHER, SELFPAY ==
--- NOTE | 2024-11-18 13:16 | RAD_ITS ---
PROCEDURE: CHEST PA AND LATERAL 11/18/2024 REASON FOR EXAM: COUGH TECHNIQUE: CHEST PA AND LATERAL COMPARISON: Chest x-ray 12/15/2022 FINDINGS: Heart: The heart size is normal.. Atherosclerotic calcification of aortic arch. Mediastinum: The mediastinal contour is unremarkable. Lungs: Bibasilar atelectasis. No focal consolidation. Bones: Degenerative changes of bilateral shoulder joints and visualized thoracic spine. RAD/Chest PA and Lateral IMPRESSION: No acute cardiopulmonary abnormalities. Reading Location: [id number]
== END | disposition home or self-care (01) ==
LOC: MTRAD 13:15
PROVIDERS: PCP Family Medicine; Referring Provider Family Medicine; Visit Provider Family Medicine
DX: R05.9 Cough, unspecified (principal)
CPT/HCPCS: 71046

== ENCOUNTER 2024-12-24 21:04 | Emergency (ER) | payer MEDICARE, OTHER, SELFPAY ==
[2024-12-24 21:05] VITALS: BP 149/78; PULSE 92; RESP 18; TEMP 37.1; O2SAT 98; BMI 37.8
--- NOTE | 2024-12-24 21:15 | EKG12_ITS ---
Test Reason : SOB Blood Pressure : */* mmHG Vent. Rate : 89 BPM Atrial Rate : 89 BPM P-R Int : 126 ms QRS Dur : 72 ms QT Int : 346 ms P-R-T Axes : 69 69 60 degrees QTcB Int : 420 ms Normal sinus rhythm Cannot rule out Inferior infarct (cited on or before 15-Dec-2022) Abnormal ECG Confirmed by NICOLA MENDEZ, DIANE ([id number]), offline editor JOAQUÍN HOLLEY ([id number]) on 12/26/2024 10:40:27 AM Referred By: DEBORAH Confirmed By: DIANE PETERSEN MD
--- OUTSIDE RECORDS SUMMARY | 2024-12-24 22:13 | XMS RPT_ITS | CCD ---
Author Organization [facility] Care Team Providers Care Collection Development Librarian Name Role Phone Yensho FERMENTING CELLARS RECEIVER, Brisa A Unavailable Unavailab le Marie FERMENTING CELLARS RECEIVER, Kristen Anabel Unavailable Unavaila ble Yensho FERMENTING CELLARS RECEIVER, Brisa A Unavailable Unavailab le Tod FERMENTING CELLARS RECEIVER, Leilani N Unavailable Unavailab le Tod FERMENTING CELLARS RECEIVER, Leilani N Unavailable Unavailab le Cogar FERMENTING CELLARS RECEIVER, Mariel N Unavailable Cogar FERMENTING CELLARS RECEIVER, Mariel N Unavailable Dr. Kamilah Patel Primary Care Provider [phone] Dr. Kamilah Patel Referring Provider SWETHA Caballero Attending Provider SWETHA Vargas Attending Provider Neal STUDIO MODEL, STUDIO MODEL-C Cathie Attending Provider Dr. Kamilah Patel Primary Care Provider [phone] Dr. Kamilah Patel Referring Provider [phone] Neal STUDIO MODEL, STUDIO MODEL-C Cathie Referring Provider Dr. Kamilah Patel Primary Care Provider [phone] Kamilah Patel Primary Care Provider [phone] Dr. Kamilah Patel Referring Provider [phone] SWETHA Caballero Attending Provider Dr. Kamilah Patel Primary Care Provider [phone] Kamilah Patel Referring Provider SWETHA Caballero Attending Provider Dr. Anthony Jalloh Attending Provider Dr. Kamilah Patel Primary Care Provider Dr. Kamilah Patel Referring Provider SWETHA Caballero Attending Provider Dr. Kamilah Patel Primary Care Provider Dr. Kamilah Patel Referring Provider Dr. Kamilah Patel Primary Care Provider [phone] Dr. Kamilah Patel Referring Provider Neal STUDIO MODEL, STUDIO MODEL-C Cathie Attending Provider [phone] Dr. Kamilah Patel Primary Care Provider [phone] Kamilah Patel Referring Provider Dr. Anthony Jalloh Attending Provider Neal STUDIO MODEL, STUDIO MODEL-C Cathie Attending Provider [phone] SWETHA Caballero Attending Provider Dr. Kamilah Patel Primary Care Provider Dr. Kamilah Patel Referring Provider Dr. Kamilah Patel Primary Care Provider Dr. Kamilah Patel Referring Provider Neal STUDIO MODEL, STUDIO MODEL-C Cathie Attending Provider [phone] SWETHA Caballero Attending Provider Dr. Naomi Whyte DO Primary Care Provider Dr. Naomi Whyte DO Referring Provider [phone] Neal MORAN-CCathie Attending Provider Neal MORAN-CCathie Referring Provider Pato BYRNES Dr. Naomi Primary Care Provider De Jesus STUDIO MODEL-C, Cathie Attending Provider De Jesus STUDIO MODEL-C, Cathie Referring Provider Pato BYRNES, Dr. Salgado Referring Provider Pato BYRNES, Dr. Salgado Attending Provider Amanda MENDEZ, Dr. Ortiz Attending Provider Amanda MENDEZ, Dr. Ortiz Referring Provider Amanda MENDEZ, Dr. Ortiz Other Provider Hamilton MENDEZ, Dr. Hernandez Attending Provider Pato BYRNES, Dr. Salgado Primary Care Provider De Jesus STUDIO MODEL-C, Cathie Attending Provider De Jesus STUDIO MODEL-C, Cathie Referring Provider Mary Villasenor Attending Unavailable Angel Patel Referring Unavailable Angel Patel Consulting Unavailable Malys, Naomi Primary Care Unavailable Malys, Naomi Primary Care Unavailable Malys, Naomi Referring Unavailable De Jesus STUDIO MODEL, Cathie Attending Unavailable Malys, Naomi Referring Unavailable Malys, Naomi Primary Care Unavailable De Jesus STUDIO MODEL, Cathie Attending Unavailable Miedel, Kamilah Primary Care Unavailable De Jesus STUDIO MODEL, Cathie Attending Unavailable De Jesus STUDIO MODEL, Cathie Referring Unavailable Malys, Naomi Attending Unavailable Malys, Naomi Primary Care Unavailable De Jesus STUDIO MODEL, Cathie Attending Unavailable De Jesus STUDIO MODEL, Cathie Referring Unavailable Malys, Naomi Primary Care Unavailable Malys, Naomi Primary Care Unavailable De Jesus STUDIO MODEL, Cathie Referring Unavailable De Jesus STUDIO MODEL, Cathie Attending Unavailable De Jesus STUDIO MODEL, Cathie Referring Unavailable Malys, Naomi Primary Care Unavailable De Jesus STUDIO MODEL, Cathie Attending Unavailable Malys, Naomi Referring Unavailable Angel Patel Attending Unavailable Malys, Naomi Primary Care Unavailable De Jesus STUDIO MODEL, Cathie Referring Unavailable Malys, Naomi Primary Care Unavailable De Jesus STUDIO MODEL, Cathie Attending Unavailable Malys, Naomi Primary Care Unavailable De Jesus STUDIO MODEL, Cathie Referring Unavailable De Jesus STUDIO MODEL, Cathie Attending Unavailable Malys, Naomi Primary Care Unavailable De Jesus STUDIO MODEL, Cathie Referring Unavailable De Jesus STUDIO MODEL, Cathie Attending Unavailable Malys, Naomi Primary Care Unavailable De Jesus STUDIO MODEL, Cathie Referring Unavailable De Jesus STUDIO MODEL, Cathie Attending Unavailable Malys, Naomi Primary Care Unavailable De Jesus STUDIO MODEL, Cathie Attending Unavailable De Jesus STUDIO MODEL, Cathie Referring Unavailable Malys, Naomi Referring Unavailable Malys, Naomi Attending Unavailable Malys, Naomi Primary Care Unavailable Malys, Naomi Primary Care Unavailable De Jesus STUDIO MODEL, Cathie Attending Unavailable De Jesus STUDIO MODEL, Cathie Referring Unavailable De Jesus STUDIO MODEL, Cathie Attending Unavailable De Jesus STUDIO MODEL, Cathie Referring Unavailable Malys, Naomi Primary Care Unavailable De Jesus STUDIO MODEL, Cathie Attending Unavailable De Jesus STUDIO MODEL, Cathie Referring Unavailable Malys, Naomi Primary Care Unavailable De Jesus STUDIO MODEL, Cathie Referring Unavailable Malys, Naomi Primary Care Unavailable De Jesus STUDIO MODEL, Cathie Attending Unavailable De Jessu STUDIO MODEL, Cathie Attending Unavailable De Jesus STUDIO MODEL, Cathie Referring Unavailable Malys, Naomi Primary Care Unavailable De Jesus STUDIO MODEL, Cathie Attending Unavailable De Jesus STUDIO MODEL, Cathie Referring Unavailable Malys, Naomi Primary Care Unavailable Angel Patel Referring Unavailable Angel Patel Attending Unavailable Malys, Naomi Primary Care Unavailable Allergies Allergy Classification Reported Allergen(s) Allergy Type Date of Onset Reaction(s) Facility (14 sources) codeine drug allergy 6 vomitting and itching [facility] Work Phone: (14 sources) morphine drug allergy 6 swellling, turns red [facility] Work Phone: (20 sources) Codeine Drug Allergy 2 Itching [facility] (20 sources) Doxycycline Drug Allergy 2 severe headaches and muscle spasms to the chest [facility] (20 sources) Morphine Drug Allergy 2 Itching [facility] (1 source) Codeine Drug Allergy 5 [facility] (1 source) Doxycycline Drug Allergy 5 [facility] (1 source) Morphine Drug Allergy 5 [facility] Medications Current Medications Medication Drug Class(es) [...] 2020 12:03pm expires 11/23/2025 168 hr estradiol 0.39803 mg/hr transdermal system (12 sources) Estrogen Start: 04-20-2023 Estradiol 0.02 5 mg/24 hr patch weekly Active 1 NMA TD EVERY WEEK April 20, 2023 1:00am Start: 04-20-2023 apply 1 dose transde rmal route every week Estradiol Active 1 PATCH TD EVERY WEEK April 20, 2023 1:00am Yhuhnwtczef-Ndmwhchzg-Bskyez er (20 sources) Anticholinergic, Corticosteroid, beta2-Adrenergic Agonist Start: 04-20-2023 Auannscwbxe-Irswoyhuo-Lkvrat er (Trelegy Ellipta) 100-62.5-25 mcg blister with device Active 1 NMA INHALATION DAILY April 20, 2023 1:00am Start: 04-20-2023 Fluticasone-Um eclidin-Vilanter (Trelegy Ellipta) 100-62.5-25 mcg blister with device Active 1 INH INHALATION DAILY April 20, 2023 1:00am Start: 04-20-2023 Fluticasone-Um eclidin-Vilanter (Trelegy Ellipta) 100-62.5-25 mcg blister with device Active 1 INH INHALATION DAILY April 20, 2023 12:00am Start: 08-01-2022 End: 11-02-2022 Vwuaiqjbyhm-Tlilracsh-Ldagkh er (Trelegy Ellipta) 100-62.5-25 mcg blister with device Discontinued 1 NMA INHALATION daily 60 August 01, 2022 8:27am November 02, 2022 3:14pm Chronic obstructive pulmonary disease, unspecified administer at approximately the same time(s) each day Start: 08-01-2022 End: 11-02-2022 Ppdnuzppmiv-Akftvblrx-Hissxv er (Trelegy Ellipta) 100-62.5-25 mcg blister with device Discontinued 1 NMA INHALATION daily 60 August 01, 2022 8:27am November 02, 2022 3:14pm administer at approximately the same time(s) each day Start: 08-01-2022 End: 11-02-2022 Kyucgjyumvo-Jggiroasr-Xvpoyt er (Trelegy Ellipta) 100-62.5-25 mcg blister with device Discontinued 1 INH INHALATION daily 60 August 01, 2022 7:27am November 02, 2022 2:14pm administer at approximately the same time(s) each day Start: 08-01-2022 End: 11-02-2022 Lgawczzahig-Vjcirwibd-Xyhozl er (Trelegy Ellipta) 100-62.5-25 mcg blister with device Discontinued 1 INH INHALATION daily 60 August 01, 2022 8:27am November 02, 2022 3:14pm administer at approximately the same time(s) each day Start: 08-01-2022 Fluticasone-Um eclidin-Vilanter (Trelegy Ellipta) 100-62.5-25 mcg blister with device Active 1 INH INHALATION daily August 01, 2022 8:27am administer at approximately the same time(s) each day Start: 01-30-2022 End: 08-01-2022 Eahoqznuayx-Hqamqleny-Yhfzbv er (Trelegy Ellipta) 100-62.5-25 mcg blister with device Discontinued 1 NMA INHALATION daily 60 January 30, 2022 8:32am August 01, 2022 8:27am Chronic obstructive pulmonary disease, unspecified administer at approximately the same time(s) each day Start: 01-30-2022 End: 08-01-2022 Srjdluqdvpa-Ikwexrhdz-Cdjsds er (Trelegy Ellipta) 100-62.5-25 mcg blister with device Discontinued 1 NMA INHALATION daily January 30, 2022 8:32am August 01, 2022 8:27am administer at approximately the same time(s) each day Start: 01-30-2022 End: 08-01-2022 Mksmvshnoqc-Pfjmvbkfn-Bfdeeh er (Trelegy Ellipta) 100-62.5-25 mcg blister with device Discontinued 1 INH INHALATION daily January 30, 2022 7:32am August 01, 2022 7:27am administer at approximately the same time(s) each day Start: 01-30-2022 End: 08-01-2022 Pfmcsraoizl-Iwbdezqea-Izcjhb er (Trelegy Ellipta) 100-62.5-25 mcg blister with [...] device Active 1 INH INHALATION daily 60 January 30, 2022 7:32am administer at approximately the same time(s) each day Start: 07-07-2021 End: 01-30-2022 Eteesmxable-Sekbcmgzz-Rhsoxj er (Trelegy Ellipta) 100-62.5-25 mcg blister with device Discontinued 1 NMA INHALATION daily 60 July 07, 2021 10:35am January 30, 2022 8:32am Chronic obstructive pulmonary disease, unspecified administer at approximately the same time(s) each day Start: 07-07-2021 End: 01-30-2022 Xxuaosaneqs-Rlwlgljyb-Hqprzn er (Trelegy Ellipta) 100-62.5-25 mcg blister with device Discontinued 1 NMA INHALATION daily 60 July 07, 2021 10:35am January 30, 2022 8:32am administer at approximately the same time(s) each day Start: 07-07-2021 End: 01-30-2022 Vmydanmvmpq-Fbeljedzt-Zwvbug er (Trelegy Ellipta) 100-62.5-25 mcg blister with device Discontinued 1 INH INHALATION daily July 07, 2021 10:35am January 30, 2022 8:32am administer at approximately the same time(s) each day Start: 07-07-2021 End: 01-30-2022 Fwwhnyazkbr-Elrpblpka-Pkenes er (Trelegy Ellipta) 100-62.5-25 mcg blister with device Discontinued 1 INH INHALATION daily 60 July 07, 2021 9:35am January 30, 2022 7:32am administer at approximately the same time(s) each day Start: 07-07-2021 Fluticasone-Um eclidin-Vilanter (Trelegy Ellipta) 100-62.5-25 mcg blister with device Active 1 INH INHALATION daily July 07, 2021 10:35am administer at approximately the same time(s) each day Start: 01-04-2021 End: 07-07-2021 Sfafyejjltf-Rwcxedryo-Xlfznz er (Trelegy Ellipta) 100-62.5-25 mcg blister with device Discontinued 1 NMA INHALATION daily 60 January 04, 2021 11:31am July 07, 2021 10:35am Chronic obstructive pulmonary disease, unspecified administer at approximately the same time(s) each day Start: 01-04-2021 End: 07-07-2021 Xmkhjwpfwih-Azrcmebfv-Ipmjyj er (Trelegy Ellipta) 100-62.5-25 mcg blister with device Discontinued 1 NMA INHALATION daily 60 January 04, 2021 11:am July 07, 2021 10:35am administer at approximately the same time(s) each day Start: 01-04-2021 End: 07-07-2021 Zyjfgtfazlj-Qpdxutovw-Rnxvmg er (Trelegy Ellipta) 100-62.5-25 mcg blister with device Discontinued 1 INH INHALATION daily 60 January 04, 2021 10:31am July 07, 2021 9:35am administer at approximately the same time(s) each day Start: 01-04-2021 End: 07-07-2021 Cksrsfsnrmb-Libxehvxk-Izauzb er (Trelegy Ellipta) 100-62.5-25 mcg blister with device Discontinued 1 INH INHALATION daily 60 January 04, 2021 11:31am July 07, 2021 10:35am administer at approximately the same time(s) each day Start: 10-15-2020 End: 01-04-2021 Oiglvxvaogw-Tengadjbe-Qlqeiv er (Trelegy Ellipta) 100-62.5-25 mcg blister with device Discontinued 1 NMA INHALATION daily 60 3 October 15, 2020 2:54pm January 04, 2021 11:33am Chronic obstructive pulmonary disease, unspecified administer at approximately the same time(s) each day Start: 10-15-2020 End: 01-04-2021 Ogjvtvzfzta-Hsdznhbgh-Vozlnk er (Trelegy Ellipta) 100-62.5-25 mcg blister with device Discontinued 1 NMA INHALATION daily 60 October 15, 2020 2:54pm January 04, 2021 11:33am administer at approximately the same time(s) each day Start: 10-15-2020 End: 01-04-2021 Suljrxwqeng-Rpfuflryu-Kyapup er (Trelegy Ellipta) 100-62.5-25 mcg blister with device Discontinued 1 INH INHALATION daily 60 October 15, 2020 1:54pm January 04, 2021 10:33am administer at approximately the same time(s) each day Start: 10-15-2020 End: 01-04-2021 Tglxfgrxiiy-Ohzhvydcm-Ulmxgu er (Trelegy Ellipta) 100-62.5-25 mcg blister with device Discontinued 1 INH INHALATION daily 60 October 15, 2020 2:54pm January 04, 2021 11:33am administer at approximately the same time(s) each day Start: 10-15-2020 End: 10-15-2020 Clauqjkszzk-Hgmtsivdz-Zxnbix er (Trelegy Ellipta) 100-62.5-25 mcg blister with device Discontinued 1 NMA INHALATION daily 60 3 October 15, 2020 2:27pm October 15, 2020 2:54pm Chronic obstructive pulmonary disease, unspecified administer at approximately the same time(s) each day Start: 10-15-2020 End: 10-15-2020 Smkzuhlgccj-Rrhhkqaav-Ddljeg er (Trelegy Ellipta) 100-62.5-25 mcg blister with device Discontinued 1 NMA INHALATION daily 60 October 15, 2020 2:27pm October 15, 2020 2:54pm administer at approximately the same time(s) each day Start: 10-15-2020 End: 10-15-2020 Tztomtdbrzs-Xqpkrgzxf-Dtmlga er (Trelegy Ellipta) 100-62.5-25 mcg blister with device Discontinued 1 INH INHALATION daily 60 October 15, 2020 1:27pm October 15, 2020 1:54pm administer at approximately the same time(s) each day Start: 10-15-2020 End: 10-15-2020 Egbobukhyyn-Eoozxacpk-Vylahm er (Trelegy Ellipta) 100-62.5-25 mcg blister with device Discontinued 1 INH INHALATION daily 60 October 15, 2020 2:27pm October 15, 2020 2:54pm administer at approximately the same time(s) each day Start: 02-16-2020 End: 05-18-2020 Mralvnjflyt-Xnwipwvqd-Wwzlez er (Trelegy Ellipta) 100-62.5-25 mcg blister with device Discontinued 1 INH INHALATION daily February 16, 2020 4:13pm May 18, 2020 11:44am administer at approximately the same time(s) each day Start: 02-16-2020 End: 05-18-2020 Vzhdolzoecs-Nqigttzee-Raunhw er (Trelegy Ellipta) 100-62.5-25 mcg blister with device Discontinued 1 NMA INHALATION daily 60 February 16, 2020 1:00am May 18, 2020 11:44am Chronic obstructive pulmonary disease, unspecified administer at approximately the same time(s) each day Start: 02-16-2020 End: 05-18-2020 Iubbwilkwsx-Osmdtbspg-Dcfypy er (Trelegy Ellipta) 100-62.5-25 mcg blister with device Discontinued 1 NMA INHALATION daily February 16, 2020 1:00am May 18, 2020 11:44am administer at approximately the same time(s) each day Start: 02-16-2020 End: 05-18-2020 Ltillsvcohw-Wcrumfoec-Lrmpic er (Trelegy Ellipta) 100-62.5-25 mcg blister with device Discontinued 1 INH INHALATION daily February 16, 2020 12:00am May 18, 2020 10:44am administer at approximately the same time(s) each day Start: 02-16-2020 End: 05-18-2020 Ncxpxvfcspt-Hsqijupss-Gmrnfb er (Trelegy Ellipta) 100-62.5-25 mcg blister with device Discontinued 1 INH INHALATION daily February 16, 2020 1:00am May 18, 2020 11:44am administer at approximately the same time(s) each day Start: 10-31-2019 End: 01-23-2020 Xozbldegowl-Ylyluevuv-Jazfzw er (Trelegy Ellipta) 100-62.5-25 mcg blister with device Discontinued 1 NMA INHALATION DAILY 1 October 31, 2019 2:30pm January 23, 2020 2:32pm Start: 10-31-2019 End: 01-23-2020 Ngcxgvzxgyz-Kgnxnqann-Hgoeio er (Trelegy Ellipta) 100-62.5-25 mcg blister with device Discontinued 1 NMA INHALATION DAILY October 31, 2019 2:30pm January 23, 2020 2:32pm Start: 10-31-2019 End: 01-23-2020 Rpayvfvgkir-Abbwzhytr-Mrtuyb er (Trelegy Ellipta) 100-62.5-25 mcg blister with device Discontinued 1 INH INHALATION DAILY October 31, 2019 1:30pm January 23, 2020 1:32pm Start: 10-31-2019 End: 01-23-2020 Gyeuhoaxexn-Sbnfrjyrm-Ugjeuc er (Trelegy Ellipta) 100-62.5-25 mcg blister with device Discontinued 1 INH INHALATION DAILY October 31, 2019 2:30pm January 23, 2020 2:32pm Start: 10-03-2018 End: 10-31-2019 Yfgdtvjszdt-Canroimyc-Vpoiix er (Trelegy Ellipta) 100-62.5-25 mcg blister with device Discontinued 1 NMA INHALATION DAILY 1 6 October 03, 2018 12:00am October 31, 2019 2:31pm Start: 10-03-2018 End: 10-31-2019 Hqwtzsijffq-Iqedkszow-Pmnwqw er (Trelegy Ellipta) 100-62.5-25 mcg blister with device Discontinued 1 INH INHALATION DAILY October 03, 2018 12:00am October 31, 2019 2:31pm Start: 09-25-2018 End: 10-03-2018 Ibtgakojnnh-Itgohovle-Gnukfr er (Trelegy Ellipta) 100-62.5-25 mcg blister with device Discontinued 1 NMA INHALATION DAILY 60 September 25, 2018 12:40pm October 03, 2018 1:40pm Start: 09-25-2018 End: 10-03-2018 Zjdjwmwiaia-Kvctqgnrl-Ezobar er (Trelegy Ellipta) 100-62.5-25 mcg blister with device Discontinued 1 NMA INHALATION DAILY September 25, 2018 12:40pm October 03, 2018 1:40pm Start: 09-25-2018 End: 10-03-2018 Spumvkluktr-Kpdgsrbvt-Lezxnt er (Trelegy Ellipta) 100-62.5-25 mcg blister with device Discontinued 1 INH INHALATION DAILY 60 September 25, 2018 11:40am October 03, 2018 12:40pm Start: 09-25-2018 End: 10-03-2018 Wxriwgwozwh-Xjtjycuxw-Zkkzpw er (Trelegy Ellipta) 100-62.5-25 mcg blister with device Discontinued 1 INH INHALATION DAILY 60 September 25, 2018 12:40pm October 03, 2018 1:40pm Start: 08-06-2018 End: 09-25-2018 Ghiqiudlazl-Opwxlrhjx-Beeuhp er (Trelegy Ellipta) 100-62.5-25 mcg blister with device Discontinued 1 NMA INHALATION DAILY 04 07August 06, 2018 12:00am September 25, 2018 12:41pm Start: 08-06-2018 End: 09-25-2018 Bcvdkbouokx-Vguutkdud-Fiyhzx er (Trelegy Ellipta) 100-62.5-25 mcg blister with [...] One tablet by mouth daily FLUVOXAMINE MALEATE [id number] Brisa Ball LPN latanoprost 0.05 mg/ml ophthalmic solution (7 sources) Prostaglandin Analog Start: 09-10-2024 Latanoprost 0.005 % drops Active 1 NMA OPHTHALMIC AT BEDTIME September 10, 2024 12:00am LORazepam 1 mg oral tablet (15 sources) Benzodiazepine Start: 09-10-2024 take 1 tablet by mouth twice daily as needed for anxiety Lorazepam 1 mg tablet Active 1 mg PO TWICE A DAY as needed for anxiety September 10, 2024 12:00am Start: 01-28-2024 take 1 tablet by bing twice daily as needed for anxiety Lorazepam [...] Discontinued 100 mg SC every 4 weeks 1 0 March 19, 2019 1:00am April 21, 2019 12:42pm spacer (20 sources) Start: 07-29-2019 spacer Active 0 .Route .MEDSUPPLY 1 July 29, 2019 2:34pm As directed Start: 07-29-2019 spacer Active 0 .Route .MEDSUPPLY 1 0 July 29, 2019 12:00am As directed Start: 07-29-2019 spacer Active 0 .Route .MEDSUPPLY 1 July 28, 2019 11:00pm As directed Start: 07-29-2019 spacer Active 0 .Route .MEDSUPPLY July 29, 2019 12:00am As directed Completed/Discontinued Medications Medication Drug Class(es) Dates Sig (Normalized) Sig (Original) acapella (20 sources) Start: 01-18-2018 End: 02-25-2018 acapella Discontinued 1 January 18, 2018 1:38pm February 25, 2018 12:52pm As directed Start: 01-18-2018 End: 02-25-2018 acapella Discontinued 1 0 Oc er 2017 12:00am February 25, 2018 12:52pm Bronchiectasis, uncomplicated bronchiectasis As directed Start: 01-18-2018 End: 02-25-2018 acapella Discontinued 1 2017 11:00pm February 25, 2018 11:52am As directed Start: 01-18-2018 End: 02-25-2018 acapella Discontinued 1 2017 12:00am February 25, 2018 12:52pm As directed JNELDZJ-ZMQOSX-KKTJA PERTUSSIS (2 sources) Inactivated Corynebacterium Diphtheriae Vaccine, Inactivated Clostridium Tetani Vaccine Start: 11-22-2015 End: 01-03-2016 ADACEL 5-2-15.5 LF-MCG/0.5 SUSP [place] 1 dose JNZXGKM-UVAMPM-JMAFO PERTUSSIS [id number] Kristen Marie FERMENTING CELLARS RECEIVER Start: 11-22-2015 ADACEL 5-2-15. 5 LF-MCG/0.5 SUSP [place] 1 dose SOZYMNP-PUDRWA-DDBWC PERTUSSIS [id number] Brisa Ball [facility] [id number] 200 actuat albuterol 0.09 mg/actuat metered dose inhaler (20 sources) beta2-Adrenergic Agonist Start: 07-07-2021 take 1 puff(s) by inhalation every four hours Albuterol Sulfate Active 2 PUFF INHALATION Q4H 8.5 July 07, 2021 10:35am administer with spacer Start: 01-04-2021 End: 09-10-2024 Albuterol Sulfate 90 mcg/act uation HFA aerosol inhaler Discontinued 2 NMA INHALATION Q4H as needed for shortness of breath or wheezing 8.5 6 August 01, 2022 8:27am September 10, 2024 [...] for shortness of breath or wheezing 1 6 October 03, 2018 12:00am November 29, 2018 9:11am administer with spacer Start: 10-03-2018 End: 11-29-2018 take 1 puff(s) by inhalation every four hours Albuterol Sulfate Discontinued 2 PUFF INHALATION Q4H 1 October 03, 2018 12:00am November 29, [...] INH every 4 hours PRN ALBUTEROL SULFATE [id number] Anthony Jalloh DO Start: 12-02-2015 take 108 ug by inhal ation every four hours as needed PROAIR HFA 108 (90 Base) MCG/ACT AERS INH every 4 hours PRN ALBUTEROL SULFATE [id number] Anthony Jalloh DO Start: 10-23-2015 End: 11-06-2024 take 2.5 mg by inhalation every four [...] nebulization Discontinued 3 mL INHALATION Q8H 15 July 27, 2018 12:00am August 06, 2018 11:49am Chronic obstructive pulmonary disease, unspecified Start: 07-27-2018 End: 08-06-2018 take 1 mL by inhalation every eight hours Ipratropium-Albuterol Discontinued 3 ML INHALATION Q8H July 27, 2018 12:00am August 06, 2018 11:49am Start: 01-03-2016 End: 10-09-2016 IPRATROPIUM-ALBUTEROL 0.5-2. 5 (3) MG/3ML SOLN INH 1 ampule q4h as needed IPRATROPIUM-ALBUTEROL [id number] Leilani Baron FERMENTING CELLARS RECEIVER amoxicillin 875 mg / clavulanate 125 mg [...] One tablet by mouth daily ASPIRIN TBEC [id number] Khai Birmingham MD ASPIRIN TBEC (1 source) Start: 12-30-2015 take 1 tablet by mouth once daily ASPIR-81 TBEC One tablet by mouth daily ASPIRIN TBEC [id number] Khai Birmingham MD atorvastatin 80 mg oral [...] by mouth daily at bedtime ATORVASTATIN CALCIUM [id number] Brisa Ball LPN budesonide 0.5 mg/ml inhalation [...] 1:00am July 03, 2018 5:06pm Flucelvax Quad [id number] (PF) (flu vac qs 2018(4 yr up)CD(PF)) [...] MCG/INH AEPB 1 puff daily FLUTICASONE FUROATE-VILANTEROL [id number] Anthony Jalloh DO Start: 11-22-2015 BREO ELLIPTA 2 00-25 MCG/INH AEPB 1 INH one time per kimberly FLUTICASONE FUROATE-VILANTEROL [id number] Brisa A Yensho FERMENTING CELLARS RECEIVER Start: 11-22-2015 take 1 puff(s) by in halation once daily BREO ELLIPTA 200-25 MCG/INH AEPB 1 puff daily FLUTICASONE FUROATE-VILANTEROL [id number] Anthony Jalloh DO Start: 11-22-2015 take 1 puff(s) by in halation once daily BREO ELLIPTA 200-25 MCG/INH AEPB 1 puff daily FLUTICASONE FUROATE-VILANTEROL [id number] Anthony Jalloh DO Start: 11-22-2015 take 200-25 ug by in halation once BREO ELLIPTA 200-25 MCG/INH AEPB 1 INH one time per kimberly FLUTICASONE FUROATE-VILANTEROL [id number] Brisa A Yensho FERMENTING CELLARS RECEIVER 120 actuat formoterol fumarate 0.0048 mg/actuat / [...] nebulization Discontinued 2.5 ML continuous nebulization ONCE 1 July 27, 2018 1:01pm July 27, 2018 1:34pm loratadine 10 mg oral capsule (20 sources) Start: 08-14-2018 End: 02-14-2024 take 1 capsule by mouth once daily Loratadine 10 mg capsule Discontinued 10 mg PO daily 90 3 August 01, 2022 8:27am February 14, 2024 2:14pm Asthma-chronic obstructive pulmonary disease overlap syndrome Chronic obstructive pulmonary disease, unspecified methylPREDNISolone 4 mg oral tablet (19 sources) Corticosteroid Start: 01-28-2024 End: 02-14-2024 Methylprednisolone 4 mg tablets,dose pack Discontinued mg PO January 28, 2024 12:00am February 14, 2024 2:11pm Start: 05-16-2023 End: 07-02-2023 take 1 tablet by mouth once Methylprednisolone (Medrol (Artem)) 4 mg tablets,dose pack Discontinued 0 PO per package directions 21 May 16, 2023 1:00am July 02, 2023 [...] tablet Discontinued 10 mg PO EVERY EVENING 30 October 31, 2019 2:30pm January 04, 2021 [...] capsule twice a day NITROFURANTOIN MONOHYD MACRO [id number] Catracho POSADA Start: 10-09-2016 End: 10-16-2016 NITROFURANTOIN MACROCRYSTAL 100 MG CAPS Take 1 capsule every 12 hours NITROFURANTOIN MACROCRYSTAL [id number] Iker POSADA nystatin 199109 unt/ml oral suspension (20 sources) Polyene Antifungal [...] times a day as needed PHENAZOPYRIDINE HCL [id number] Catracho POSADA predniSONE 10 mg oral tablet [...] tablet Discontinued 40 mg PO DAILY 10 December 15, 2022 12:00am 2023 2:11pm Acute [...] tablet Discontinued 60 mg PO daily 15 June 10, 2019 3:55pm July 29, 2019 1:44pm administer with food or milk Start: 03-27-2019 End: 07-29-2019 take 60 mg by mouth once daily at mealtime Prednisone Discontinued 60 MG PO daily June 10, 2019 3:55pm July 29, 2019 1:44pm administer with food or milk Start: 10-07-2018 End: 11-29-2018 Prednisone 10 mg tablet Discontinued 10 mg PO daily 30 0 October 07, 2018 12:00am November 29, 2018 [...] Discontinued 10 mg PO daily 30 0 July 09, 2018 12:00am July 27, 2018 [...] mg tablet Discontinued 10 mg PO DAILY 30 February 25, 2018 1:00am April 04, 2018 10:15am 4 tablets daily for 3 days, then 3 tablets daily for 3 days, then 2 tablets daily for 3 days, then 1 tablet daily for 3 days. Start: 10-24-2017 End: 02-04-2018 Prednisone 10 mg tablet Discontinued 10 mg PO daily 30 January 15, 2018 12:00am February 04, 2018 [...] Administer 1 dose PNEUMOCOCCAL 13-FAVIAN CONJ VACC [id number] Brisa Ball [employer] Start: 11-22-2015 End: 01-03-2016 PREVNAR 13 SUSP Administer 1 dose PNEUMOCOCCAL 13-FAVIAN CONJ VACC [phone] Kristen Marie [employer] sulfamethoxazole 800 mg / trimethoprim 160 mg oral tablet (20 sources) Dihydrofolate Reductase Inhibitor Antibacterial, Sulfonamide Antimicrobial Start: 04-04-2021 End: 07-07-2021 Sulfamethoxazole-Trimethopri m (Bactrim Ds) 800-160 mg tablet Discontinued 1 {tbl} PO TWICE A DAY 6 April 04, 2021 1:00am July 07, 2021 10:04am Tiotropium Hilliard (20 sources) Anticholinergic Start: 05-18-2020 End: 07-02-2020 take 1 puff(s) by inhalation once daily Tiotropium Hilliard (Spiriva Respimat) 2.5 mcg/actuation mist Discontinued 2 PUFF INHALATION daily May 18, 2020 12:05pm July 02, 2020 10:58am Start: 05-18-2020 End: 07-02-2020 take 2.5 ug by inhalation once daily Tiotropium Hilliard (Spiriva Respimat) 2.5 mcg/actuation mist Discontinued 2 NMA INHALATION daily 07 13May 18, 2020 1:00am July 02, 2020 10:58am Start: 05-18-2020 End: 07-02-2020 take 2.5 ug by inhalation once daily Tiotropium Hilliard (Spiriva Respimat) 2.5 mcg/actuation mist Discontinued 2 NMA INHALATION daily May 18, 2020 1:00am July 02, 2020 10:58am Start: 05-18-2020 End: 07-02-2020 take 1 puff(s) by inhalation once daily Tiotropium Hilliard (Spiriva Respimat) 2.5 mcg/actuation mist Discontinued 2 PUFF INHALATION daily May 18, 2020 12:00am July 02, 2020 9:58am Start: 05-18-2020 End: 07-02-2020 take 1 puff(s) by inhalation once daily Tiotropium Hilliard (Spiriva Respimat) 2.5 mcg/actuation mist Discontinued 2 PUFF INHALATION daily May 18, 2020 1:00am July 02, 2020 10:58am Start: 02-25-2018 End: 08-06-2018 Tiotropium Hilliard 18 mcg ca psule, w/inhalation device Discontinued 1 NMA INHALATION DAILY February 25, 2018 1:00am August 06, 2018 11:49am Start: 12-02-2015 take 1 puff(s) by in halation once daily SPIRIVA HANDIHALER 18 MCG CAPS INH 1 puff daily TIOTROPIUM BROMIDE MONOHYDRATE [id number] Kristen Acunajevon Marie LPN Start: 12-02-2015 take 1 capsule by in halation once daily SPIRIVA HANDIHALER 18 MCG CAPS INH one time per day TIOTROPIUM BROMIDE MONOHYDRATE 29291116033 Brsia Ball LPN Start: 12-02-2015 SPIRIVA HANDIH ALER 18 MCG CAPS 2 puffs daily TIOTROPIUM BROMIDE MONOHYDRATE 67354344410 Anthony Jalloh DO Start: 12-02-2015 take 1 puff(s) by in halation once daily SPIRIVA HANDIHALER 18 MCG CAPS INH 1 puff daily TIOTROPIUM BROMIDE MONOHYDRATE 93600846120 Kristen Marie LPN Start: 12-02-2015 take 1 capsule by in halation once daily SPIRIVA HANDIHALER 18 MCG CAPS INH one time per day TIOTROPIUM BROMIDE MONOHYDRATE 70748445310 Brisa Ball LPN Start: 12-02-2015 SPIRIVA HANDIH ALER 18 MCG CAPS 2 puffs daily TIOTROPIUM BROMIDE MONOHYDRATE 03010273311 Anthony Jalloh DO Start: 12-02-2015 SPIRIVA HANDIH ALER 18 MCG CAPS 2 puffs daily TIOTROPIUM BROMIDE MONOHYDRATE 60850502527 Anthony Jalloh DO Start: 10-23-2015 End: 08-06-2017 Tiotropium Hilliard 1 PUFF in haler Discontinued 1 NMA INHALATION DAILY October 23, 2015 12:00am August 06, 2017 11:13am Start: 10-23-2015 End: 08-06-2017 take 1 puff(s) by inhalation once daily Tiotropium Hilliard Discontinued 1 PUFF INHALATION DAILY October 23, 2015 12:00am August 06, 2017 11:13am 30 actuat umeclidinium 0.0625 mg/actuat dry powder inhaler (20 sources) Anticholinergic Start: 08-06-2017 End: 02-25-2018 take 62.5 ug by inhalation once daily Umeclidinium (Incruse Ellipta) 62.5 mcg/actuation blister with device Discontinued 1 NMA INHALATION daily 30 3 August 06, 2017 12:00am February 25, 2018 12:54pm ZOSTER VACCINE LIVE (2 sources) Start: 11-22-2015 ZOSTAVAX 43651 UNT/0.65ML SUSR Adminiser 1 dose ZOSTER VACCINE LIVE [id number] Brisaaleshia Ball [employer] Start: 11-22-2015 End: 01-03-2016 ZOSTAVAX 29320 UNT/0.65ML LONG SR Adminiser 1 dose ZOSTER VACCINE LIVE [id number] Kristen Anabel Marie [employer] venlafaxine 75 mg oral tablet (20 sources) [...] One tablet by mouth daily VENLAFAXINE HCL [id number] Leilani Baron [employer] Problems Active Problems Problem Classification Problem Date Documented Da te Episodic/Chronic Anxiety disorders (8 sources) Social phobia; Translations: [Social phobia, unspecified] 01-28-2024 Chronic Asthma (20 sources) Uncomplicated severe persistent asthma; Translations: [Severe persistent asthma, uncomplicated] Onset: 11-19-2024 02-09-2020 Chronic Comment on above: on [place] Chronic obstructive pulmonary disease and bronchiectasis (20 sources) Chronic obstructive lung disease; Translations: [Asthma-chronic obstructive pulmonary disease overlap syndrome] Onset: 12-02-2015 12-02-2015 Chronic Coronary atherosclerosis and other heart disease (20 sources) Coronary arteriosclerosis; Translations: [Atherosclerotic heart disease of [place] coronary artery without angina pectoris] Onset: 12-30-2015 12-30-2015 Chronic Disorders of lipid metabolism (16 sources) Hyperlipidemia; Translations: [Hyperlipidemia, unspecified] Onset: 12-30-2015 12-30-2015 Chronic Genitourinary symptoms and ill-defined conditions (20 sources) Increased frequency of urination; Translations: [Dysuria] Onset: 11-09-2016 11-09-2016 Episodic Glaucoma (8 sources) Glaucoma; Translations: [Unspecified glaucoma] 02-14-2024 Chronic Mycoses (20 sources) Candidiasis of mouth; Translations: [Candidal stomatitis] 01-18-2018 Episodic Other circulatory disease (18 sources) H/O: heart disorder; Translations: [Personal history of other diseases of the circulatory system] 12-15-2022 Episodic Other lower respiratory disease (15 sources) Dyspnea on exertion; Translations: [Other forms of dyspnea] Onset: 12-02-2015 12-02-2015 Episodic Other lower respiratory disease (20 sources) Nodule of lung; Translations: [Solitary pulmonary nodule] 08-06-2018 Episodic Other lower respiratory disease (12 sources) Dyspnea; Translations: [Shortness of breath] 04-20-2023 Episodic Other lower respiratory disease (12 sources) Wheezing; Translations: [Wheezing] 04-20-2023 Episodic Other lower respiratory disease (6 sources) Shortness of breath; Translations: [Shortness of breath] Onset: 11-03-2024 04-20-2023 Episodic Other lower respiratory disease (4 [...] Retinal detachments; defects; vascular occlusion; and retinopathy (8 sources) Degenerative disorder of macula ; Translations: [Unspecified macular degeneration] 02-14-2024 Chronic Substance-related disorders (20 sources) Tobacco dependence in remission; Translations: [Nicotine dependence, unspecified, in remission] Onset: 12-02-2015 12-02-2015 Chronic Substance-related disorders (11 sources) Nicotine dependence, unspecified, in remission; Translations: [Tobacco use disorder] Onset: 03-12-2024 Chronic Unclassified (1 source) Cough, unspecified; Translations: [Cough, unspecified] Onset: 11-24-2024 Urinary tract infections (20 sources) Urinary tract [...] Translations: [Solitary pulmonary nodule] Onset: 09-10-2024 Episodic Results Test Name Value Interpretation Reference Range Facility Chest PA and Lateralon 11-18 Chest PA and Lateral [facility] Imaging Services [address] [place] [address] Chest PA and Lateral MR#: [id number] Acct: [id number] Name: TARSHA GONZALEZ DOMINGA Rep #: [id number] : 1955 F 69 From: Johann Bowman MD PCP: Dr. Naomi Whyte DO Status: REG CLI Study: Chest PA and Lateral Date of Exam: 11/18/24 Exam# [id number] Ordering Dr: Naomi Whyte DO PROCEDURE: CHEST PA AND LATERAL 11/18/2024 REASON FOR EXAM: COUGH TECHNIQUE: CHEST PA AND LATERAL COMPARISON: Chest x-ray 12/15/2022 FINDINGS: Heart: The heart size is normal.. Atherosclerotic calcification of aortic arch. Mediastinum: The mediastinal contour is unremarkable. Lungs: Bibasilar atelectasis. No focal consolidation. Bones: Degenerative changes of bilateral shoulder joints and visualized thoracic spine. RAD/Chest PA and Lateral IMPRESSION: No acute cardiopulmonary abnormalities. Reading Location: [id number] CC: Dr. Naomi Whyte DO It Programmer Analyst: Signed Normal [facility] Cardiovascular stress test r eportOrdered By: Mary Villasenor on 10-24-2024 Study report [facility] Cardiovascular Services [address] [place] [address] MR#: [id number] Acct: [id number] Name: TARSHA GONZALEZ DOMINGA Rep #: [id number] : 1955 69 From: Mary Villasenor MD Primary Care: Dr. Naomi Whyte DO Status: REG CLI Referring Dr: Angel Patel MD Sex: F C Stress Test Report Date: 10/24/2024 Procedure: Pharmacologic stress nuclear imaging study Indications: Dyspnea Consent: Per the patient Procedure: The patient underwent pharmacologic (Regadenoson 0.4mg ) evaluation with a peak heart rate of 90 beats per minute (59%predicted maximal heart rate) and a peak blood pressure of 134/72 mmHg. The baseline ECG demonstrated sinus rhythm. The peak pharmacologic ECG did not show any ischemic changes. There were no cardiac dysrhythmias pretest, during pharmacologic infusion, or recovery. There was no complaint of chest discomfort during pharmacologic infusion or recovery. The patient was injected with 15.0 millicuries of technetium 99m Cardiolite and subsequently rest SPECT Cardiolite nuclear imaging was obtained in the horizontal long, vertical long, and short axis views. The patient underwent pharmacologic (Regadenoson) evaluation. The patient was injected with 44.6 millicuries of technetium 99m Cardiolite and subsequently stress SPECT Cardiolite nuclear imaging was obtained in the horizontal long, vertical long, and short axis views. A gated Cardiolite study at peak stress was obtained. The examination was stopped secondary to completion of protocol. Rest and stress SPECT Cardiolite nuclear imaging status post realignment, normalization, and attenuation correction demonstrate no fixed or reversible perfusion defects. There is end systolic thickening and brightening. The gatedCardiolite study demonstrates myocardial thickening and inward wall motion. Thereported LVEF is 77%. Impression: 1. Pharmacologic (Regadenoson) evaluation 2. Peak pharmacologic ECG with no ischemic changes. 3. There were no cardiac dysrhythmias pretest, during pharmacologic infusion, or recovery. 5. Rest and stress SPECT Cardiolite nuclear imaging demonstrate relative uniform tracer uptake and myocardial perfusion appearing within normal limits. 6. The gated Cardiolite study reports an LVEF of 77%. This note was generated with [id number] software. It may contain incorrectwords, spelling, and punctuation that were not noted in checking the note beforesigning. 10/24/2445 Date _ Mary Villasenor MD CC: Dr. Naomi Whyte DO; Dr. Angel Patel MD ~ Date Dictated: 10/24/24942 Date Transcribed: 10/24/24942 It Programmer Analyst: JOHN Fragoso [facility] Work Phone: Echo Completeon 10-24-2024 Echo Complete [facility] Cardiovascular Services [address] [place] [address] Echo Complete 10/24/24 1052 MR#: [id number] Acct: [id number] Name: TARSHA GONZALEZ DOMINGA Rep #: [id number] : 1955 69 From: Mary Villasenor MD Attending Dr: Dr. Angel Patel MD Status: RE G CLI Ordering Dr: Angel Patel MD Date: 10/24/24 Location: [facility] Sex: F C Admitted: Reason For Study Reason For Study: DYSPNEA/SOB Procedure This was a 2D Doppler, Color Flow transthoracic echocardiogram. The study was technically difficult. Exam performed in department. Left Ventricle Normal size and thickness. The LV ejection fraction is 65 %. Diastolic function is indeterminate. Right Ventricle Normal right ventricle. Atria The left atrium is mildly enlarged. Normal right atrium. Mitral Valve Mild mitral annular calcification. Trivial mitral valve insufficiency. Tricuspid Valve Normal tricuspid valve. Aortic Valve Trisinus/trileaflet aortic valve. Pulmonic Valve The pulmonic valve is not well visualized. Great Vessels Normal sized aortic root. Pericardium/Pleural No pericardial effusion. MMode/2D Measurements Calculations LVIDd: 4.1 cm IVSd: 0.94 cm Ao root diam: 2.6 cm LVIDs: 3.0 cm LVPWd: 0.97 cm LA dimension: 4.0 cm RVDd: 2.3 cm FS: 25.9 % LAV(MOD-bp): 54.0 ml LVAd ap4: 22.2 cm2 LVAd ap2: 23.3 cm2 LAV(MOD-bp) Indexed: 27.5 ml/m2 LVLd ap4: 7.6 cm LVLd ap2: 7.6 cm LAV(MOD-sp2): 53.2 ml EDV(MOD-sp4): 54.4 ml EDV(MOD-sp2): 58.2 ml LAV(MOD-sp4): 53.2 ml EDV(sp4-el): 55.3 ml EDV(sp2-el): 60.7 ml LVAs ap4: 11.9 cm2 LVAs ap2: 12.2 cm2 LVLs ap4: 6.4 cm LVLs ap2: 6.2 cm ESV(MOD-sp4): 20.1 ml ESV(MOD-sp2): 20.2 ml ESV(sp4-el): 18.9 ml ESV(sp2-el): 20.2 ml EF(MOD-sp4): 63.0 % EF(MOD-sp2): 65.4 % EF(sp4-el): 65.9 % SV(MOD-sp4): 34.3 ml SV(MOD-sp2): 38.0 ml SV(sp4-el): 36.5 ml SI(MOD-sp4): 17.5 ml/m2 SI(MOD-sp2): 19.4 ml/m2 LA A4 area: 18.7 cm2 LA dimension(2D): 3.5 cm RA A4 area: 8.1 cm2 TAPSE: 2.4 cm Time Measurements MV dec time: 0.20 sec Doppler Measurements Calculations MV E max jann: 99.2 cm/sec Lat Peak E' Jann: 7.9 cm/sec Med Peak E' Jann: 6.7 cm/sec MV A max jann: 113.2 cm/sec E/E' lat: 12.5 E/E' med: 14.8 MV E/A: 0.88 MV V2 max: 121.5 cm/sec MV P1/2t max jann: 115.5 cm/sec Ao V2 max: 161.2 cm/sec MV max P.9 mmHg MV P1/2t: 69.7 msec Ao max P.4 mmHg MV V2 mean: 59.5 cm/sec Ao V2 mean: 101.5 cm/sec MV mean P.7 mmHg MV dec slope: 485.5 cm/sec2 Ao mean P.6 mmHg MV V2 VTI: 35.7 cm MVA(P1/2t): 3.2 cm2 Ao V2 VTI: 35.2 cm AV (velocity ratio): 0.72 LV V1 max: 113.2 cm/sec PA V2 max: 111.3 cm/sec LV V1 max P.1 mmHg PA V2 mean: 74.2 cm/sec LV V1 mean P.3 mmHg LV V1 mean: 69.6 cm/sec LV V1 VTI: 25.2 cm ECHO/Echo Complete Interpretation Summary The LV ejection fraction is 65 %. Diastolic function is indeterminate. The left atrium is mildly enlarged. Mild mitral annular calcification. Ordering Physician: Angel Patel Referring Physician: Naomi Whyte Performed By: Nissa Lundy RDCS, RVT 10/24/24 1342 Date Mary Villasenor MD CC: Dr. Naomi Whyte DO; Dr. Angel Patel MD Date Dictated: 10/24/24 105 Date Transcribed: 10/24/241341 It Programmer Analyst: Signed Normal [facility] Echocardiogram study reportO rdered By: Mary Villasenor on 10-24-2024 Study report [facility] Cardiovascular Services [address] [place] [address] Echo Complete 10/24/241051 MR#: [id number] Acct: [id number] Name: TARSHA GONZALEZ DOMINGA Rep #:[id number] : 1955 69 From: Mary Villasenor MD Attending Dr: Dr. Angel Patel MD Status: REG CLI Ordering Dr: Angel Patel MD Date: 10/24/24 Location: [facility] Sex: F C Admitted: Reason For Study Reason For Study: DYSPNEA/SOB Procedure This was a 2D Doppler, Color Flow transthoracic echocardiogram. The study was technically difficult. Exam performed in department. Left Ventricle Normal size and thickness. The LV ejection fraction is 65 %. Diastolic function is indeterminate. Right Ventricle Normal right ventricle. Atria The left atrium is mildly enlarged. Normal right atrium. Mitral Valve Mild mitral annular calcification. Trivial mitral valve insufficiency. Tricuspid Valve Normal tricuspid valve. Aortic Valve Trisinus/trileaflet aortic valve. Pulmonic Valve The pulmonic valve is not well visualized. Great Vessels Normal sized aortic root. Pericardium/Pleural No pericardial effusion. MMode/2D Measurements & Calculations LVIDd: 4.1 cm IVSd: 0.94 cm Ao root diam: 2.6 cm LVIDs: 3.0 cm LVPWd: 0.97 cm LA dimension: 4.0 cm RVDd: 2.3 cm FS: 25.9 % LAV(MOD-bp): 54.0 ml LVAd ap4: 22.2 cm2 LVAd ap2: 23.3 cm2 LAV(MOD-bp) Indexed: 27.5 ml/m2 LVLd ap4: 7.6 cm LVLd ap2: 7.6 cm LAV(MOD-sp2): 53.2 ml EDV(MOD-sp4): 54.4 ml EDV(MOD-sp2): 58.2 ml LAV(MOD-sp4): 53.2 ml EDV(sp4-el): 55.3 ml EDV(sp2-el): 60.7 ml LVAs ap4: 11.9 cm2 LVAs ap2: 12.2 cm2 LVLs ap4: 6.4 cm LVLs ap2: 6.2 cm ESV(MOD-sp4): 20.1 ml ESV(MOD-sp2): 20.2 ml ESV(sp4-el): 18.9 ml ESV(sp2-el): 20.2 ml EF(MOD-sp4): 63.0 % EF(MOD-sp2): 65.4 % EF(sp4-el): 65.9 % SV(MOD-sp4): 34.3 ml SV(MOD-sp2): 38.0 ml SV(sp4-el): 36.5 ml SI(MOD-sp4): 17.5 ml/m2 SI(MOD-sp2): 19.4 ml/m2 LA A4 area: 18.7 cm2 LA dimension(2D): 3.5 cm RA A4 area: 8.1 cm2 TAPSE: 2.4 cm Time Measurements MV dec time: 0.20 sec Doppler Measurements & Calculations MV E max jann: 99.2 cm/sec Lat Peak E' Jann: 7.9 cm/sec Med Peak E' Jann: 6.7 cm/sec MV A max jann: 113.2 cm/sec E/E' lat: 12.5 E/E' med: 14.8 MV E/A: 0.88 MV V2 max: 121.5 cm/sec MV P1/2t max jann: 115.5 cm/sec Ao V2 max: 161.2 cm/sec MV max P.9 mmHg MV P1/2t: 69.7 msec Ao max P.4 mmHg MV V2 mean: 59.5 cm/sec Ao V2 mean: 101.5 cm/sec MV mean P.7 mmHg MV dec slope: 485.5 cm/sec2 Ao mean P.6 mmHg MV V2 VTI: 35.7 cm MVA(P1/2t): 3.2 cm2 Ao V2 VTI: 35.2 cm AV (velocity ratio): 0.72 LV V1 max: 113.2 cm/sec PA V2 max: 111.3 cm/sec LV V1 max P.1 mmHg PA V2 mean: 74.2 cm/sec LV V1 mean P.3 mmHg LV V1 mean: 69.6 cm/sec LV V1 VTI: 25.2 cm ECHO/Echo Complete Interpretation Summary The LV ejection fraction is 65 %. Diastolic function is indeterminate. The left atrium is mildly enlarged. Mild mitral annular calcification. Ordering Physician: Angel Patel Referring Physician: Naomi Whyte Performed By: Nissa Lundy, ANIVALCS, RVT 10/24/24 1342 Date _ Mary Villasenor MD CC: Dr. Naomi Whyte DO; Dr. Angel Patel MD ~ Date Dictated: 10/24/24 1052 Date Transcribed: 10/24/24 1342 It Programmer Analyst: Signed [facility] Work Phone: Stress Reporton 10-24-2024 Stress Report [facility] Cardiovascular Services [address] [place] [address] MR#: [id number] Acct: [id number] Name: TARSHA GONZALEZ Rep #: [id number] : 1955 69 From: Mary Villasenor MD Primary Care: Dr. Naomi Whyte, DO Status: R EG CLI Referring Dr: Angel Patel MD Sex: F C Stress Test Report Date: 10/24/2024 Procedure: Pharmacologic stress nuclear imaging study Indications: Dyspnea Consent: Per the patient Procedure: The patient underwent pharmacologic (Regadenoson 0.4mg ) evaluation with a peak heart rate of 90 beats per minute (59%predicted maximal heart rate) and a peak blood pressure of 134/72 mmHg. The baseline ECG demonstrated sinus rhythm. The peak pharmacologic ECG did not show any ischemic changes. There were no cardiac dysrhythmias pretest, during pharmacologic infusion, or recovery. There was no complaint of chest discomfort during pharmacologic infusion or recovery. The patient was injected with 15.0 millicuries of technetium 99m Cardiolite and subsequently rest SPECT Cardiolite nuclear imaging was obtained in the horizontal long, vertical long, and short axis views. The patient underwent pharmacologic (Regadenoson) evaluation. The patient was injected with 44.6 millicuries of technetium 99m Cardiolite and subsequently stress SPECT Cardiolite nuclear imaging was obtained in the horizontal long, vertical long, and short axis views. A gated Cardiolite study at peak stress was obtained. The examination was stopped secondary to completion of protocol. Rest and stress SPECT Cardiolite nuclear imaging status post realignment, normalization, and attenuation correction demonstrate no fixed or reversible perfusion defects. There is end systolic thickening and brightening. The gated Cardiolite study demonstrates myocardial thickening and inward wall motion. The reported LVEF is 77%. Impression: 1. Pharmacologic (Regadenoson) evaluation 2. Peak pharmacologic ECG with no ischemic changes. 3. There were no cardiac dysrhythmias pretest, during pharmacologic infusion, or recovery. 5. Rest and stress SPECT Cardiolite nuclear imaging demonstrate relative uniform tracer uptake and myocardial perfusion appearing within normal limits. 6. The gated Cardiolite study reports an LVEF of 77%. This note was generated with Rescale software. It may contain incorrect words, spelling, and punctuation that were not noted in checking the note before signing. 10/24/24944 Date Mary Villasenor MD CC: Dr. Naomi Whyte DO; Dr. Angel Patel MD Date Dictated: 10/24/24942 Date Transcribed: 10/24/24942 It Programmer Analyst: JOHN Signed Normal [facility] Absolute lymphocyte countOrd ered By: Naomi Whyte on 10-17-2024 Lymphocytes Auto (Unsp spec) [#/Vol] 2.41 10*3/uL 0.83-4.51 [facility] Absolute neutrophil countOrd ered By: Naomi Whyte on 10-17-2024 Neutrophils (Bld) [#/Vol] 4.2 10*3/uL 2.0-7.7 [facility] Anion gap in Serum or Plasma Ordered By: Naomi Whyte on 10-17-2024 Anion gap [Moles/Vol] 13 mmol/L 5-15 [facility] Automated lymphocyte count a s percentage of total leukocytesOrdered By: Naomi Whyte on 10-17-2024 Lymphocytes/100 WBC Auto (Unsp spec) 32.5 % - [facility] BUN/creatinine ratioOrdered By: Naomi Whyte on 10-17-2024 Urea nitrogen/Creatinine [Mass ratio] 9.6 mg/mg Low 10-20 [facility] Basophil percentageOrdered B y: Naomi Whyte on 10-17-2024 Basophils/100 WBC (Bld) 0.9 % 0-1 [facility] Bilirubin, totalOrdered By: Naomi Whyte on 10-17-2024 Bilirubin [Mass/Vol] 0.42 mg/dL 0.00-1.30 [facility] CBC W/Diff, Automatedon 10-07 Absolute Lymph 2.41 X10 3/uL Normal 0.83-4.51 [facility] Comment on above: Performed By: #### L 100.0100, L500.4050, L500.4100, L501.5200, L503.0106 #### [facility] Laboratory [address] [place], [address] Absolute Neut 4.2 X10 3/uL Normal 2.0-7.7 [facility] Comment on above: Performed By: #### L 100.0100, L500.4050, L500.4100, L501.5200, L503.0106 #### [facility] [address] [place], [address] Basophils/100 WBC (Bld) 0.9 % Normal 0-1 [facility] Comment on above: Performed By: #### L 100.0100, L500.4050, L500.4100, L501.5200, L503.0106 #### [facility] [address] [place], [address] Eosinophils/100 WBC (Bld) 1.3 % Normal 0-5 [facility] Comment on above: Performed By: #### L 100.0100, L500.4050, L500.4100, L501.5200, L503.0106 #### [facility] [address] [place], [address] Erythrocyte distribution width (RBC) [Ratio] 13.2 % Normal 11.6-14.6 [facility] Comment on above: Performed By: #### L 100.0100, L500.4050, L500.4100, L501.5200, L503.0106 #### [facility] [address] [place], [address] Hematocrit (Bld) [Volume fraction] 41.7 % Normal 37-47 [facility] Comment on above: Performed By: #### L 100.0100, L500.4050, L500.4100, L501.5200, L503.0106 #### [facility] [address] [place], [address] Hemoglobin (Bld) [Mass/Vol] 13.6 g/dL Normal 12.0-15.0 [facility] Comment on above: Performed By: #### L 100.0100, L500.4050, L500.4100, L501.5200, L503.0106 #### [facility] [address] [place], [address] IG% 1.100 High 0.0-0.9 [facility] Comment on above: Result Comment: IG% - Immature Granulocytes (promyelocytes, myelocytes and metamyelocytes) > 1% indicates that a LEFT SHIFT is Present. Performed By: #### L 100.0100, L500.4050, L500.4100, L501.5200, L503.0106 #### [facility] [address] [place], [address] Lymphocytes/100 WBC (Bld) 32.5 % Normal 19-41 [facility] Comment on above: Performed By: #### L 100.0100, L500.4050, L500.4100, L501.5200, L503.0106 #### [facility] [address] [place], [address] MCH (RBC) [Entitic mass] 29.4 pg Normal 27.0-32.0 [facility] Comment on above: Performed By: #### L 100.0100, L500.4050, L500.4100, L501.5200, L503.0106 #### [facility] [address] [place], [address] MCHC (RBC) [Mass/Vol] 32.6 g/dL Normal 32-36 [facility] Comment on above: Performed By: #### L 100.0100, L500.4050, L500.4100, L501.5200, L503.0106 #### [facility] [address] [place], [address] MCV (RBC) [Entitic vol] 90.3 fL Normal 81-99 [facility] Comment on above: Performed By: #### L 100.0100, L500.4050, L500.4100, L501.5200, L503.0106 #### [facility] [address] [place], [address] Monocytes/100 WBC (Bld) 7.3 % Normal 0-10 [facility] Comment on above: Performed By: #### L 100.0100, L500.4050, L500.4100, L501.5200, L503.0106 #### [facility] [address] [place], [address] Neutrophils/100 WBC (Bld) 56.9 % Normal 47-70 [facility] Comment on above: Performed By: #### L 100.0100, L500.4050, L500.4100, L501.5200, L503.0106 #### [facility] [address] [place], [address] Nucleated RBC (Bld) [#/Vol] 0 10*3/uL Normal 0-5 [facility] Comment on above: Performed By: #### L 100.0100, L500.4050, L500.4100, L501.5200, L503.0106 #### [facility] [address] [place], [address] Platelet mean volume (Bld) [Entitic vol] 9.3 fL Normal 6.2-12.0 [facility] Comment on above: Performed By: #### L 100.0100, L500.4050, L500.4100, L501.5200, L503.0106 #### [facility] [address] [place], [address] Platelets (Bld) [#/Vol] 345 10*3/uL Normal 150-450 [facility] Comment on above: Performed By: #### L 100.0100, L500.4050, L500.4100, L501.5200, L503.0106 #### [facility] [address] [place], [address] RBC (Bld) [#/Vol] 4.62 10*6/uL Normal 4.2-5.4 [facility] Comment on above: Performed By: #### L 100.0100, L500.4050, L500.4100, L501.5200, L503.0106 #### [facility] [address] [place], [address] RDW SD 43.0 fl Normal 35.1-43.9 [facility] Comment on above: Performed By: #### L 100.0100, L500.4050, L500.4100, L501.5200, L503.0106 #### [facility] [address] [place], [address] WBC (Bld) [#/Vol] 7.4 10*3/uL Normal 4.4-11.0 [facility] Comment on above: Performed By: #### L 100.0100, L500.4050, L500.4100, L501.5200, L503.0106 #### [facility] [address] [place], [address] Calculated very low density lipoprotein (VLDL) cholesterol measurementOrdered By: Naomi Whyte on 10-17-2024 Calculated very low density lipoprotein (VLDL) cholesterol measurement 22 mg/dL 5-40 [facility] Carbon dioxide, total [Moles /volume] in Central venous bloodOrdered By: Naomi Whyte on 10-17-2024 CO2 [Moles/Vol] 18.8 mmol/L Low 21.0-32.0 [facility] Chloride assayOrdered By: Ai Whyte on 10-17-2024 Chloride [Moles/Vol] 106 mmol/L 98-108 [facility] Comprehensive Metabolic Prof ilon 10-17-2024 Albumin [Mass/Vol] 4.2 g/dL Normal 3.4-4.8 [facility] Comment on above: Performed By: #### L 100.0100, L500.4050, L500.4100, L501.5200, L503.0106 #### [facility] [address] [place], [address] Albumin/Globulin [Mass ratio] 1.5 {ratio} Normal 0.9-2.4 [facility] Comment on above: Performed By: #### L 100.0100, L500.4050, L500.4100, L501.5200, L503.0106 #### [facility] [address] [place], [address] ALK PHOS 98 U/L Normal 35-104 [facility] Comment on above: Performed By: #### L 100.0100, L500.4050, L500.4100, L501.5200, L503.0106 #### [facility] [address] [place], [address] ALT [Catalytic activity/Vol] 23 U/L Normal <=34 [facility] Comment on above: Performed By: #### L 100.0100, L500.4050, L500.4100, L501.5200, L503.0106 #### [facility] [address] [place], [address] AST [Catalytic activity/Vol] 18 U/L Normal <=31 [facility] Comment on above: Performed By: #### L 100.0100, L500.4050, L500.4100, L501.5200, L503.0106 #### [facility] [address] [place], [address] Bilirubin [Mass/Vol] 0.42 mg/dL Normal 0.00-1.30 [facility] Comment on above: Performed By: #### L 100.0100, L500.4050, L500.4100, L501.5200, L503.0106 #### [facility] [address] [place], [address] BUN/CRE 9.6 RATIO Low 10-20 [facility] Comment on above: Performed By: #### L 100.0100, L500.4050, L500.4100, L501.5200, L503.0106 #### [facility] [address] [place], [address] Calcium [Mass/Vol] 9.4 mg/dL Normal 7.6-11.0 [facility] Comment on above: Performed By: #### L 100.0100, L500.4050, L500.4100, L501.5200, L503.0106 #### [facility] [address] [place], [address] Chloride [Moles/Vol] 106 mmol/L Normal 98-108 [facility] Comment on above: Performed By: #### L 100.0100, L500.4050, L500.4100, L501.5200, L503.0106 #### [facility] [address] [place], [address] CO2 [Moles/Vol] 18.8 mmol/L Low 21.0-32.0 [facility] Comment on above: Performed By: #### L 100.0100, L500.4050, L500.4100, L501.5200, L503.0106 #### [facility] [address] [place], [address] Creatinine [Mass/Vol] 1.09 mg/dL Normal 0.70-1.20 [facility] Comment on above: Performed By: #### L 100.0100, L500.4050, L500.4100, L501.5200, L503.0106 #### [facility] [address] [place], [address] GAP 13 Normal 5-15 [facility] Comment on above: Performed By: #### L 100.0100, L500.4050, L500.4100, L501.5200, L503.0106 #### [facility] [address] [place], [address] GFR/1.73 sq M.predicted among non-blacks MDRD (S/P/Bld) [Vol rate/Area] 55 mL/min/{1.73_m2} Low >60 [facility] Comment on above: Result Comment: mL/m in/1.73m2 CKD-EPI Creatinine Equation (2020) Performed By: #### L 100.0100, L500.4050, L500.4100, L501.5200, L503.0106 #### [facility] [address] [place], [address] Globulin (S) [Mass/Vol] 2.9 g/dL Normal 2.2-4.2 [facility] Comment on above: Performed By: #### L 100.0100, L500.4050, L500.4100, L501.5200, L503.0106 #### [facility] [address] [place], [address] Glucose [Mass/Vol] 89 mg/dL Normal 70-99 [facility] Comment on above: Performed By: #### L 100.0100, L500.4050, L500.4100, L501.5200, L503.0106 #### [facility] [address] [place], [address] Potassium [Moles/Vol] 4.1 mmol/L Normal 3.3-5.1 [facility] Comment on above: Performed By: #### L 100.0100, L500.4050, L500.4100, L501.5200, L503.0106 #### [facility] [address] [place], [address] Sodium [Moles/Vol] 138 mmol/L Normal 133-145 [facility] Comment on above: Performed By: #### L 100.0100, L500.4050, L500.4100, L501.5200, L503.0106 #### [facility] [address] [place], [address] T PROT 7.0 g/dL Normal 5.9-8.4 [facility] Comment on above: Performed By: #### L 100.0100, L500.4050, L500.4100, L501.5200, L503.0106 #### [facility] [address] [place], [address] Urea nitrogen [Mass/Vol] 11 mg/dL Normal 4-19 [facility] Comment on above: Performed By: #### L 100.0100, L500.4050, L500.4100, L501.5200, L503.0106 #### [facility] [address] [place], [address] Eosinophil percentageOrdered By: Naomi Whyte on 10-17-2024 Eosinophils/100 WBC (Bld) 1.3 % 0-5 [facility] Erythrocyte distribution wid th ratioOrdered By: Naomi Whyte on 10-17-2024 Erythrocyte distribution width (RBC) [Ratio] 13.2 % 11.6-14.6 [facility] Erythrocyte distribution wid th standard deviationOrdered By: Naomi Whyte on 10-17-2024 Erythrocyte distribution width (RBC) [Ratio] 43.0 fl 35.1-43.9 [facility] Glomerular filtration rate ( GFR) estimation/1.73 sq m using serum, plasma, or whole bOrdered By: Naomi Whyte on 10-17-2024 GFR/1.73 sq M.predicted among non-blacks MDRD (S/P/Bld) [Vol rate/Area] 55 mL/min/{1.73_m2} Low >60 [facility] Comment on above: mL/min/1.73m2 CKD-EP I Creatinine Equation (2020) Hematocrit Auto (Bld) [Volum e fraction]Ordered By: Naomi Whyte on 10-17-2024 Hematocrit (Bld) [Volume fraction] 41.7 % 37-47 [facility] Hemoglobin measurementOrdere d By: Naomi Whyte on 10-17-2024 Hemoglobin (Bld) [Mass/Vol] 13.6 g/dL 12.0-15.0 [facility] Immature granulocytes/100 WB C Auto (Bld)Ordered By: Naomi Whyte on 10-17-2024 Immature granulocytes/100 WBC (Bld) 1.100 % High 0.0-0.9 [facility] Comment on above: IG% - Immature Granu locytes (promyelocytes, myelocytes and metamyelocytes) > 1% indicates that a LEFT SHIFT is Present. LDL calc ser/plasOrdered By: Naomi Whyte on 10-17-2024 Cholesterol in LDL [Mass/Vol] 196 mg/dL [facility] Comment on above: Wqfrmljoln=095-021 m g/dL & Higher Wutj=278 mg/dL or greater Laboratory - Chemistry and C hemistry - challengeOrdered By: Naomi Whyte on 10-17-2024 AST [Catalytic activity/Vol] 18 U/L <32 [facility] Lipid Profileon 10-17-2024 CHOL:HDL 4.20 Normal [facility] Comment on above: Performed By: #### L 100.0100, L500.4050, L500.4100, L501.5200, L503.0106 #### [facility] [address] [place], [place], [address] Cholesterol [Mass/Vol] 285 mg/dL High <=200 [facility] Comment on above: Result Comment: Chol esterol level, Desirable <200 mg/dL Borderline high cholesterol 200-239 mg/dL High cholesterol >=240 mg/dL Recommendations of the NCEP Adult Treatment Panel for the following risk-cutoff thresholds for the [place] population. Performed By: #### L 100.0100, L500.4050, L500.4100, L501.5200, L503.0106 #### [facility] [address] [place], [address] Cholesterol in HDL [Mass/Vol] 68 mg/dL Normal [facility] Comment on above: Result Comment: Evangel[place] onal Cholesterol Education Program (NCEP) guidelines: <40 mg/dL: Low HDL-cholesterol (major risk factor for CHD) >= 60 mg/dL: High HDL-cholesterol (negative risk factor for CHD) HDL-cholesterol is affected by a number of factors, e.g. smoking, exercise, hormones, sex and age. Performed By: #### L 100.0100, L500.4050, L500.4100, L501.5200, L503.0106 #### [facility] [address] [place], [address] Cholesterol in LDL [Mass/Vol] 196 mg/dL Normal [facility] Comment on above: Result Comment: Bord niqxew=037-226 mg/dL Higher Insi=728 mg/dL or greater Performed By: #### L 100.0100, L500.4050, L500.4100, L501.5200, L503.0106 #### [facility] [address] [place], [address] Cholesterol in VLDL [Mass/Vol] 22 mg/dL Normal 5-40 [facility] Comment on above: Performed By: #### L 100.0100, L500.4050, L500.4100, L501.5200, L503.0106 #### [facility] [address] [place], [address] Triglyceride [Mass/Vol] 108 mg/dL Normal [facility] Comment on above: Result Comment: The drugs N-Acetylcysteine and Metamizole may falsely depress this assay. Normal range: <150 mg/dL Borderline High: 150-199 mg/dL High: 200-499 mg/dL Very High: >500 mg/dL Performed By: #### L 100.0100, L500.4050, L500.4100, L501.5200, L503.0106 #### [facility] [address] [place], [place], [address] MCV (mean corpuscular volume ) determinationOrdered By: Naomi Whyte on 10-17-2024 MCV (RBC) [Entitic vol] 90.3 fL 81-99 [facility] Magnesiumon 10-17-2024 Magnesium [Mass/Vol] 2.3 mg/dL High 1.5-2.2 [facility] Comment on above: Performed By: #### L 100.0100, L500.4050, L500.4100, L501.5200, L503.0106 #### [facility] [address] [facility] [place], [place], [address] Magnesium measurement (mass/ volume)Ordered By: Naomi Whyte on 10-17-2024 Magnesium (Unsp spec) [Mass/Vol] 2.3 mg/dL High 1.5-2.2 [facility] Mean corpuscular hemoglobin (MCH) determinationOrdered By: Naomi Whyte on 10-17-2024 MCH (RBC) [Entitic mass] 29.4 pg 27.0-32.0 [facility] Mean corpuscular hemoglobin concentration (MCHC) determinationOrdered By: Naomi Whyte on 10-17-2024 MCHC (RBC) [Mass/Vol] 32.6 g/dL 32-36 [facility] Mean platelet volume determi nationOrdered By: Naomi Whyte on 10-17-2024 Platelet mean volume (Bld) [Entitic vol] 9.3 fL 6.2-12.0 [facility] Monocyte percentageOrdered B y: Naomi Whyte on 10-17-2024 Monocytes/100 WBC (Bld) 7.3 % 0-10 [facility] Neutrophil percentageOrdered By: Naomi Whyte on 10-17-2024 Neutrophils/100 WBC (Bld) 56.9 % 47-70 [facility] Nucleated red blood cell per centageOrdered By: Naomi Whyte on 10-17-2024 Nucleated RBC/100 WBC (Bld) [Ratio] 0 % 0-5 [facility] Platelet countOrdered By: Ai Whyte on 10-17-2024 Platelets (Bld) [#/Vol] 345 10*3/uL 150-450 [facility] Potassium measurement (mass/ volume)Ordered By: Naomi Whyte on 10-17-2024 Potassium (Unsp spec) [Mass/Vol] 4.1 mmol/L 3.3-5.1 [facility] RBC Auto (Bld) [#/Vol]Ordere d By: Naomi Whyte on 10-17-2024 RBC (Bld) [#/Vol] 4.62 10*6/uL 4.2-5.4 [facility] Screening total cholesterol/ high density lipoprotein (HDL) cholesterol ratioOrdered By: Naomi Whyte on 10-17-2024 Cholesterol.total/Hiral sterol in HDL [Mass ratio] 4.20 {ratio} [facility] Serum creatinine measurement (mass/volume)Ordered By: Naomi Whyte on 10-17-2024 Creatinine [Mass/Vol] 1.09 mg/dL 0.70-1.20 [facility] Serum globulin measurementOr dered By: Naomi Whyte on 10-17-2024 Globulin (S) [Mass/Vol] 2.9 g/dL 2.2-4.2 [facility] Serum glucose measurement (m ass/volume)Ordered By: Naomi Whyte on 10-17-2024 Glucose [Mass/Vol] 89 mg/dL 70-99 [facility] Serum or plasma alanine jackson otransferase (ALT) measurementOrdered By: Naomi Whyte on 10-17-2024 ALT [Catalytic activity/Vol] 23 U/L <35 [facility] Serum or plasma albumin aida urement (mass/volume)Ordered By: Naomi Whyte on 10-17-2024 Albumin [Mass/Vol] 4.2 g/dL 3.4-4.8 [facility] Serum or plasma albumin/glob ulin mass ratioOrdered By: Naomi Whyte on 10-17-2024 Albumin/Globulin [Mass ratio] 1.5 {ratio} 0.9-2.4 [facility] Serum or plasma alkaline jeri sphatase measurementOrdered By: Naomi Whyte on 10-17-2024 ALP [Catalytic activity/Vol] 98 U/L 35-104 [facility] Serum or plasma calcium aida urement (mass/volume)Ordered By: Naomi Whyte on 10-17-2024 Calcium [Mass/Vol] 9.4 mg/dL 7.6-11.0 [facility] Serum or plasma cholesterol in HDL measurement (mass/volume)Ordered By: Naomi Whyte on 10-17-2024 Cholesterol in HDL [Mass/Vol] 68 mg/dL >40 [facility] Comment on above: National Cholesterol Education Program (NCEP) guidelines:<40 mg/dL: Low HDL-cholesterol (major risk factor for CHD)>= 60 mg/dL: High HDL-cholesterol (negative risk factor for CHD)HDL-cholesterol is affected by a number of factors, e.g. smoking, exercise, hormones, sex and age. Serum or plasma cholesterol measurement (mass/volume)Ordered By: Naomi Whyte on 10-17-2024 Cholesterol [Mass/Vol] 285 mg/dL High <201 [facility] Comment on above: Cholesterol level, D esirable <200 mg/dLBorderline high cholesterol 200-239 mg/dLHigh cholesterol >=240 mg/dLRecommendations of the NCEP Adult Treatment Panel for the following risk-cutoff thresholds for the [place] population. Serum or plasma urea nitroge n measurement (mass/volume)Ordered By: Naomi Whyte on 10-17-2024 Urea nitrogen [Mass/Vol] 11 mg/dL 4-19 [facility] Sodium levelOrdered By: Naomi Whyte on 10-17-2024 Sodium [Moles/Vol] 138 mmol/L 133-145 [facility] Total proteinOrdered By: Graciela Whyte on 10-17-2024 Protein [Mass/Vol] 7.0 g/dL 5.9-8.4 [facility] Triglycerides measurementOrd ered By: Naomi Whyte on 10-17-2024 Triglyceride [Mass/Vol] 108 mg/dL <199 [facility] Comment on above: The drugs N-Acetylcy steine and Metamizole may falsely depress this assay. Normal range: <150 mg/dLBorderline High: 150-199 mg/dLHigh: 200-499 mg/dLVery High: >500 mg/dL Vitamin B12on 10-17-2024 Cobalamin (Vitamin B12) [Mass/Vol] 357 pg/mL Normal 180-914 [facility] Comment on above: Performed By: #### L 100.0100, L500.4050, L500.4100, L501.5200, L503.0106 #### [facility] [address] [place], [address] Vitamin B12 ser/plasOrdered By: Naomi Whyte on 10-17-2024 Cobalamin (Vitamin B12) [Mass/Vol] 357 pg/mL 180-914 [facility] White blood cell (WBC) count Ordered By: Naomi Whyte on 10-17-2024 WBC (Bld) [#/Vol] 7.4 10*3/uL 4.4-11.0 [facility] Pulmonary Visit Reporton Pulmonary Visit Report [facility] [address] [place] [address] OFFICE VISIT Date of Service: 09/10/24 MR#: [id number] Acct: [id number] Name: TARSHA GONZALEZ DOMINGA Rep #: [id number] : 1955 Provider: NELI De Jesus Age/Sex: 69/F Location: [facility] [place] Status: Signed Assessment and Plan Assessment and [...] (pediatric) Plan This note was generated with besomebody. dictation software. It may contain incorrect words, [...] Reasons: 6 M FU Chief Complaint: Nucala Networking Technician Required: No DME Vendor: Kim Accompanied by: Self Is patient in pain?: [...] 04/20/23 0 (more content not included)... Normal [facility] Pulmonary Visit Reporton Pulmonary Visit Report [facility] [place] [address] [place] [address] OFFICE VISIT Date of Service: 03/12/24 MR#: [id number] Acct: [id number] Name: TARSHA GONZALEZ DOMINGA Rep #: [id number] : 1955 Provider: NELI De Jesus Age/Sex: 69/F Location: [facility] [place] Status: Signed with Addenda [...] uncomplicated Plan Details Follow Up: 6 Months ([facility]) 06/04/24 1139 Date Cathie De Jesus NP STUDIO MODELFroylan cc: Dr. Naomi Whyte, DO * Signed [...] uncomplicated Plan Details Follow Up: 6 Months ([facility]) HPI RESCHEDULED 6 M FU Chief Complaint: Test results HPI Comments Details: This patient presents to the office today for follow-up of her asthma/COPD overlap syndrome complicated by obstructive sleep apnea for which she has been noncompliant and to discuss test results. She is ambulatory and on room air. She recently returned from a trip to [place], unfortunately her brother from cancer. She has [...] is on Nucala monthly injections at [facility]. She is currently using her albuterol [...] 6 M FU Chief Complaint: smells sulfur Networking Technician Required: No DME Vendor: pap- dont use Accompanied by: Self Is patient in pain?: No Allergies codeine Allergy (Verified 03/12/24 12:43) Itching morphine Allergy (Verified 03/12/24 12:43) Itching do (more content not included)... Normal [facility] 12 Lead EKG performed by [facility] [place] on 02-14-2024 12 Lead EKG performed by [facility] [address] [place] [address] 12 Lead EKG performed by [facility] [place] 02/14/24 1008 MR#: [id number] Acct: [id number] Name: TARSHA GONZALEZ DOMINGA Rep #: [id number] : 1955 69 From: Angel Patel MD Attending Dr: Dr. Angel Patel MD Status: DE P AMB Ordering Dr: Angel Patel MD Date: 02/14/24 Location: [facility] [place] Sex: F C Admitted: BMS/12 Lead EKG performed by [facility] [place] ECG Report Interpretation ---Sinus Rhythm -Left atrial enlargement. -Old anterior infarct. -Nonspecific ST depression -Nondiagnostic. ABNORMAL Electronically signed on 02/14/2024 at 16:[address] Angel Patel [employer] Software Version [id number] 02/14/24 1650 Date Angel Patel MD CC: Dr. Naomi Whyte DO Date Dictated: 02/14/241007 Date Transcribed: 02/14/241007 It Programmer Analyst: Signed Normal [facility] Cardiology Visit Reporton Cardiology Visit Report [facility] [address] [place] [address] OFFICE VISIT Date of Service: 02/14/24 MR#: [id number] Acct: [id number] Name: TARSHA GONZALEZ DOMINGA Rep #: [id number] : 1955 Provider: Dr. Angel noe MD Age/Sex: 69/F Location: [facility] [place] Status: Signed with Addenda ADDENDUM by Dr. Angel Patel MD on 02/14/24 at 1422 HPI History of Present Illness Details: ECG shows normal sinus rhythm at 84 bpm left atrial enlargement cannot rule out old inferior or anterior ND. There are nondiagnostic ST segment changes. This is similar to an old EKG from December 2022. Assessment and Plan Assessment and Plan (1) Atherosclerosis of coronary artery: Status: Acute Qualifiers: Coronary Disease-Associated Artery/Lesion type: [place] artery [place] vs. transplanted heart: [place] heart Associated angina: unspecified whether angina present Qualified Code(s): I25.10 - Atherosclerotic heart disease of [place] coronary artery without angina pectoris (2) TORREZ (dyspnea on exertion): Status: Acute (3) Hyperlipidemia: Status: Acute Qualifiers: Hyperlipidemia type: pure hypercholesterolemia Qualified Code(s): E78.00 - Pure hypercholesterolemia, unspecified Orders: Orders 12 Lead EKG performed by [facility] [place] [facility] [place] Today R06.02 - Shortness of breath Echo Complete 3 Weeks R06.02 - Shortness of breath Nuclear Stress Test - Chemical 3 Weeks I25.10 - Atherosclerotic heart disease of [place] coronary artery without angina pectoris, R06.02 - Shortness of breath Lipid Profile 6 Weeks I25.10 - Atherosclerotic heart disease of [place] coronary artery without angina pectoris Liver Profile 6 Weeks I25.10 - Atherosclerotic heart disease of [place] coronary artery without angina pectoris Medications: New rosuvastatin 5 mg PO QDAY 30 tabs 0RF Plan Details Follow Up: 6 Months (With JERMAN and as needed) 02/14/24 1422 Date Angel Patel MD cc: Dr. Naomi Whyte DO * Signed HPI HPI History of [...] does not smoke but she has an [id number] smoking history, she is hyperlipidemic and has [...] room air Intake Visit Reasons: Dyspnea (Malys) Networking Technician Required: No Accompanied by: Self Is patient [...] solution for (more content not included)... Normal [facility] Low Dose CT Lung Screeningon 12-28-[address] Lung Screening [facility] Imaging Services [address] [place] [address] Lung Screening MR#: [id number] Acct: [id number] Name: TARSHA GONZALEZ Rep #: [id number] : [id number] F [id number] From: Cali olmedo DO PCP: Dr. Kamilah Patel MD Status: [facility] Study: Low Dose CT Lung Screening Date of Exam: 12/27 Exam# [id number] Ordering Dr: Cathie De Jesus NP STUDIO MODEL-C [id number] EXAM: CT CHEST, LUNG CANCER SCREENING WITHOUT [...] lesions. BONES/JOINTS: Degenerative changes in the spine. Antimony right scoliotic curvature. No suspicious lytic or [...] NELI De Jesus; Dr. Kamilah Patel MD It Programmer Analyst: Signed Normal [facility] Absolute lymphocyte countOrd ered By: Jagdish Day on 12-15-2022 Lymphocytes Auto (Unsp spec) [#/Vol] 2.44 10*3/uL 0.83-4.51 [facility] Basophil percentageOrdered B y: Jagdish Day on 12-15-2022 Basophils/100 WBC (Bld) 0.7 % 0-1 [facility] Chloride [Moles/Vol] 109 mmol/L 98-107 [facility] Eosinophils/100 WBC (Bld) 1.5 % 0-5 [facility] Glucose [Mass/Vol] 109 mg/dL 74-106 [facility] Comment on above: Fasting Glucose resu lt from 100 to 125 mg/dL suggests IMPAIRED HOMEOSTASIS per A.D.A. criteria. Neutrophils (Bld) [#/Vol] 2.8 10*3/uL 2.0-7.7 [facility] Neutrophils/100 WBC (Bld) 46.2 % 47-70 [facility] Potassium [Moles/Vol] 3.5 mmol/L 3.5-5.1 [facility] Sodium [Moles/Vol] 138 mmol/L 136-145 [facility] WBC (Bld) [#/Vol] 6.1 10*3/uL 4.4-11.0 [facility] Blood erythrocytes count (nu mber/volume)Ordered By: Jagdish Day on 12-15-2022 RBC (Bld) [#/Vol] 4.90 10*6/uL 4.2-5.4 [facility] Blood hemoglobin measurement (mass/volume)Ordered By: Jagdish Day on 12-15-2022 Hemoglobin (Bld) [Mass/Vol] 14.4 g/dL 12.0-15.0 [facility] Blood lymphocytes/100 leukoc ytesOrdered By: Jagdish Day on 12-15-2022 Lymphocytes/100 WBC (Bld) 40.1 % 19-41 [facility] Blood monocytes/100 leukocyt esOrdered By: Jagdish Day on 12-15-2022 Monocytes/100 WBC (Bld) 11.0 % 0-10 [facility] Blood platelet mean volumeOr dered By: Jagdish Day on 12-15-2022 Platelet mean volume (Bld) [Entitic vol] 9.2 fL 6.2-12.0 [facility] Determination of erythrocyte mean corpuscular volume (MCV)Ordered By: Jagdish Day on 12-15-2022 MCV (RBC) [Entitic vol] 88.6 fL 81-99 [facility] Hematocrit Auto (Bld) [Volum e fraction]Ordered By: Jagdish Day on 12-15-2022 Hematocrit (Bld) [Volume fraction] 43.4 % 37-47 [facility] Laboratory - Chemistry and C hemistry - challengeOrdered By: Jagdish Day on 12-15-2022 CO2 [Moles/Vol] 22.0 mmol/L 21.0-32.0 [facility] Urea nitrogen/Creatinine [Mass ratio] 11.1 mg/mg 10-20 [facility] Laboratory - Hematology and Cell countsOrdered By: Jagdish Day on 12-15-2022 Erythrocyte distribution width (RBC) [Entitic vol] 40.5 fL 35.1-43.9 [facility] Erythrocyte distribution width (RBC) [Ratio] 12.5 % 11.6-14.6 [facility] Immature granulocytes/100 WBC (Bld) 0.500 % 0.0-0.9 [facility] Comment on above: IG% - Immature Granu locytes (promyelocytes, myelocytes and metamyelocytes) > 1% indicates that a LEFT SHIFT is Present. MCH (RBC) [Entitic mass] 29.4 pg 27.0-32.0 [facility] Nucleated RBC/100 WBC (Bld) [Ratio] 0 % 0-5 [facility] MCHC Auto (RBC) [Mass/Vol]Or dered By: Jagdish Day on 12-15-2022 MCHC (RBC) [Mass/Vol] 33.2 g/dL 32-36 [facility] No Panel InformationOrdered By: Jagdish Day on 12-15-2022 Estimated Creatinine Clearance Calc 45.16 ml/min [facility] Estimated GFR (MDRD) Amer 71 mL/min >60 [facility] Comment on above: GFR Calc Estimated GFR (MDRD) Non-Af Amer 59 mL/min >60 [facility] Comment on above: Non- GFR Calc Troponin I High Sensitivity 19 pg/mL 3.0-54.0 [facility] Comment on above: Please Note: New Margareth t Units and Gender Specific Reference Ranges. For more information see Policy Stat Procedure [place] High Sensitivity Troponin (TNIH) and attachments. Platelets bldOrdered By: Reynaldo Day on 12-15-2022 Platelets (Bld) [#/Vol] 321 10*3/uL 150-450 [facility] SARS-CoV-2 (COVID-19) Ag IA. rapid Ql (Resp)Ordered By: Jagdish Day on 12-15-2022 SARS-CoV-2 Antigen (Rapid) SARS-CoV-2 (COVID 19) [facility] SARS-CoV-2 Antigen (Rapid) SARS-CoV-2 (COVID 19) [facility] Serum or plasma calcium aida urement (mass/volume)Ordered By: Jagdish Day on 12-15-2022 Calcium [Mass/Vol] 9.7 mg/dL 8.5-10.1 [facility] Serum or plasma creatinine m easurement (mass/volume)Ordered By: Jagdish Day on 12-15-2022 Creatinine [Mass/Vol] 1.00 mg/dL 0.55-1.02 [facility] Comment on above: The validity of the calculated GFR & GFRAA in patients over 70 years has not been determined. Clinical correlation is essential. Serum or plasma urea nitroge n measurement (mass/volume)Ordered By: Jagdish Day on 12-15-2022 Urea nitrogen [Mass/Vol] 11 mg/dL 7-18 [facility] Thin prep Papanicolaou smear with manual screeningOrdered By: Jagdish Day on 12-15-2022 Thin prep Papanicolaou smear with manual screening 7 5-15 [facility] Culture, urineOrdered By: [facility] albert Cl[facility] on 02-10-2022 Bacteria identified Cx Nom (U) Klebsiella pneumoniae sp pneum [facility] Laboratory - Chemistry and C hemistry - challengeon 02-08-2022 Bilirubin Ql (U) Negative [facility] Glucose Ql (U) Negative [facility] Ketones Ql (U) Small (15+) [facility] pH (U) 5.0 [pH] [facility] Specific gravity (U) [Rel density] 1.030 [facility] Urobilinogen (U) [Mass/Vol] Negative [facility] Laboratory - Hematology and Cell countson 02-08-2022 Hemoglobin Ql (U) Negative [facility] Laboratory - Specimen inform ationon 02-08-2022 Clarity (U) Cloudy [facility] Color (U) AYAH [facility] Laboratory - Urinalysison Nitrite Ql (U) Positive [facility] Protein Ql (U) Negative [facility] No Panel Informationon 02-08 Urine Leukocytes Positive [facility] Urine Non-Hemolyzed Blood Negative [facility] Basophil percentageon 2021 Bilirubin [Mass/Vol] 0.40 mg/dL 0.20-1.00 [facility] Work Phone: Comment on above: For patients on eltr ombopag therapy, use of Dimension [place] TBIL is not recommended. Chloride [Moles/Vol] 110 mmol/L 98-107 [facility] Work Phone: Cholesterol [Mass/Vol] 276 mg/dL <200 [facility] Work Phone: Comment on above: <200 mg/dL Desirable 200-240 mg/dL Borderline >240 mg/dL High Risk Glucose [Mass/Vol] 94 mg/dL 74-106 [facility] Work Phone: Potassium [Moles/Vol] 3.7 mmol/L 3.5-5.1 [facility] Work Phone: Protein [Mass/Vol] 6.6 g/dL 6.4-8.2 [facility] Work Phone: Sodium [Moles/Vol] 141 mmol/L 136-145 [facility] Work Phone: Triglyceride [Mass/Vol] 73 mg/dL <199 [facility] Work Phone: Comment on above: The drugs N-Acetylcy steine and Metamizole may falsely depress this assay.Serum Triglycerides Reference Interval Normal <150 mg/dL Borderline high 150 - 199 mg/dL High 200 - 499 mg/dL Very High > or = 500 mg/dL Laboratory - Chemistry and C hemistry - challengeon 12-15-2021 ALP [Catalytic activity/Vol] 88 U/L 45-117 [facility] Work Phone: ALT [Catalytic activity/Vol] 20 U/L 13-56 [facility] Work Phone: CO2 [Moles/Vol] 25.0 mmol/L 21.0-32.0 [facility] Work Phone: Globulin (S) [Mass/Vol] 3.3 g/dL 2.2-4.2 [facility] Work Phone: Urea nitrogen/Creatinine [Mass ratio] 9.9 mg/mg 10-20 [facility] Work Phone: No Panel Informationon 12-15 Estimated GFR (MDRD) Amer 91 mL/min >60 [facility] Work Phone: Comment on above: GFR Calc Estimated GFR (MDRD) Non-Af Amer 76 mL/min >60 [facility] Work Phone: Comment on above: Non- GFR Calc Serum or plasma albumin aida urement (mass/volume)on 12-15-2021 Albumin [Mass/Vol] 3.3 g/dL 3.2-5.0 [facility] Work Phone: Serum or plasma albumin/glob ulin mass ratioon 12-15-2021 Albumin/Globulin [Mass ratio] 1.0 {ratio} 0.9-2.4 [facility] Work Phone: Serum or plasma calcium aida urement (mass/volume)on 12-15-2021 Calcium [Mass/Vol] 9.0 mg/dL 8.5-10.1 [facility] Work Phone: Serum or plasma cholesterol in HDL measurement (mass/volume)on 12-15-2021 Cholesterol in HDL [Mass/Vol] 57 mg/dL >40 [facility] Work Phone: Comment on above: The drugs N-Acetylcy steine and Metamizole may falsely depress this assay. Reference Range HDL <40 mg/dL Low HDL Cholesterol HDL >or= 60 mg/dL High HDL Cholesterol Serum or plasma cholesterol in VLDL measurement (mass/volume)on 12-15-2021 Cholesterol in VLDL [Mass/Vol] 15 mg/dL 5-40 [facility] Work Phone: Serum or plasma creatinine m easurement (mass/volume)on 12-15-2021 Creatinine [Mass/Vol] 0.80 mg/dL 0.55-1.02 [facility] Work Phone: Comment on above: The validity of the calculated GFR & GFRAA in patients over 70 years has not been determined. Clinical correlation is essential. Serum or plasma low density lipoprotein (LDL) cholesterol measurement (mass/volume)on 12-15-2021 Cholesterol in LDL [Mass/Vol] 204 mg/dL 0-130 [facility] Work Phone: Serum or plasma urea nitroge n measurement (mass/volume)on 12-15-2021 Urea nitrogen [Mass/Vol] 8 mg/dL 7-18 [facility] Work Phone: Thin prep Papanicolaou smear with manual screeningon 12-15-2021 Thin prep Papanicolaou smear with manual screening 15 U/L 15-37 [facility] Work Phone: Thin prep Papanicolaou smear with manual screening 6 5-15 [facility] Work Phone: Laboratory - Chemistry and C hemistry - challengeon 11-09-2021 Bilirubin Ql (U) Negative [facility] Work Phone: Glucose Ql (U) Negative [facility] Work Phone: Ketones Ql (U) Small (15+) [facility] Work Phone: pH (U) 5.0 [pH] [facility] Work Phone: Specific gravity (U) [Rel density] 1.030 [facility] Work Phone: Urobilinogen (U) [Mass/Vol] Negative [facility] Work Phone: Laboratory - Hematology and Cell countson 11-09-2021 Hemoglobin Ql (U) Hemolyzed [facility] Work Phone: Laboratory - Specimen inform ationon 11-09-2021 Clarity (U) Cloudy [facility] Work Phone: Color (U) AYAH [facility] Work Phone: Laboratory - Urinalysison Nitrite Ql (U) Negative [facility] Work Phone: Protein Ql (U) Negative [facility] Work Phone: No Panel Informationon 11-09 Urine Leukocytes Positive [facility] Work Phone: Urine Non-Hemolyzed Blood Small [facility] Work Phone: No Panel Informationon 04-06 POC SARS CoV-2 Antigen Positive [facility] Work Phone: Basophil percentageon 2020 Basophil percentage 0-5 SEEN /hpf [facility] Work Phone: Bilirubin Test strip Ql (U)o n 04-04-2021 Bilirubin Ql (U) Negative Negative [facility] Work Phone: Ketones Test strip Ql (U)on 04-04-2021 Ketones Ql (U) 5 mg/dl Negative [facility] Work Phone: Mucus LM Ql (Urine sed)on Mucus Ql (Urine sed) 0 SEEN /hpf [facility] Work Phone: Nitrite Test strip Ql (U)on 04-04-2021 Nitrite Ql (U) Negative Negative [facility] Work Phone: Protein Test strip Ql (U)on 04-04-2021 Protein Ql (U) 30 mg/dl Negative [facility] Work Phone: Squamous epithelial cells de tection in urine sediment by light microscopyon 04-04-2021 Epithelial cells.squamous LM Ql (Urine sed) 0-5 SEEN /hpf [facility] Work Phone: Urine blood detectionon 03-10 RBC Ql (U) 10 /ul Negative [facility] Work Phone: RBC Ql (U) 0 SEEN /hpf [facility] Work Phone: Urine clarityon 04-04-2021 Clarity (U) Sl. Cloudy Clear [facility] Work Phone: Urine color determinationon 04-04-2021 Color (U) Yellow Yellow [facility] Work Phone: Urine glucose detectionon Glucose Ql (U) Normal mg/dl Normal [facility] Work Phone: Urine leukocyte esterase det ection by dipstickon 04-04-2021 Leukocyte esterase Test strip Ql (U) 100 /ul Negative [facility] Work Phone: Urine pHon 04-04-2021 pH (U) 5.0 [pH] [facility] Work Phone: Urine sediment bacteria coun t by microscopy (number/high power field)on 04-04-2021 Bacteria LM.HPF (Urine sed) [#/Area] RARE /hpf None Seen [facility] Work Phone: Urine specific gravity measu rementon 04-04-2021 Specific gravity (U) [Rel density] 1.025 [facility] Work Phone: Urobilinogen Auto test strip Ql (U)on 04-04-2021 Urobilinogen Ql (U) 1 mg/dl Normal [facility] Work Phone: Office Visit: UC: UTIon 08-0 Albumin Ql (U) trace [facility] Work Phone: Appearance Nom (U) clear [facility] Work Phone: [phone] Bilirubin Ql (U) Negative [facility] Work Phone: [phone] Color Nom (U) yellow [facility] Work Phone: [phone] Fall risk assessment No [facility] Work Phone: [phone] Glucose Test strip mass conc (U) Negative [facility] Work Phone: [phone] Ketones mass conc (U) Negative [facility] Work Phone: [phone] Leukocyte esterase Test strip Ql (U) 2+ [facility] Work Phone: [phone] Nitrite Ql (U) Negative [facility] Work Phone: [phone] pH (U) 5.0 [pH] [facility] Work Phone: Protein mass conc Done [facility] Work Phone: [phone] Specific gravity Refractometry Relative Density (U) 1.030 [facility] Work Phone: Tobacco smoking status NHIS Never [facility] Work Phone: [phone] Tobacco smoking status NHIS Former smoker [facility] Work Phone: [phone] Urobilinogen Test strip Ql (U) Negative [facility] Work Phone: [phone] Office Visit: UC: UTI?on Fall risk assessment No [facility] Work Phone: [phone] Protein mass conc Done [facility] Work Phone: Tobacco smoking status NHIS Former smoker [facility] Work Phone: Tobacco smoking status NHIS Never [facility] Work Phone: [phone] Office Visit: COPD and OSAon 09-20-2016 Dietary management education, guidance, and counseling (procedure) yes Invalid Interpretation Code [facility] Work Phone: Documentation of current medications (procedure) Done Invalid Interpretation Code [facility] Work Phone: Protein mass conc Done [facility] Work Phone: Tobacco smoking status NHIS Never Invalid Interpretation Code [facility] Work Phone: Tobacco smoking status NHIS Former smoker [facility] Work Phone: Tobacco use [facility] Former smoker Invalid Interpretation Code [facility] Work Phone: Clinical Lists Update: 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 02-11-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 Left ventricular Ejection fraction 60 % [facility] Work Phone: Office Visit: OSAon 02-03-20 16 Protein mass conc Done [facility] Work Phone: Tobacco smoking status NHIS Never [facility] Work Phone: Tobacco smoking status NVIS Former smoker [facility] Work Phone: Replaced Document: Susan Christiansen CG Observationson 12-30-2015 EKG QRS axis 58 deg [facility] Work Phone: electrocardiogram interpretation Sinus Rhythm WITHIN NORMAL LIMITS Invalid Interpretation Code [facility] Work Phone: GE use only - for [employer] import when terms are not otherwise specified 405 ms Invalid Interpretation Code [facility] Work Phone: Interpretation Sinus Rhythm WITHIN NORMAL LIMITS [facility] Work Phone: P Inola 64 deg [facility] Work Phone: P wave axis, electrocardiogram 64 deg Invalid Interpretation Code [facility] Work Phone: AL Interval 132 ms [facility] Work Phone: AL interval, electrocardiogram 132 ms Invalid Interpretation Code [facility] Work Phone: Pulse (Heart Rate) 62 /min Invalid Interpretation Code [facility] Work Phone: QRS axis, electrocardiogram 58 deg Invalid Interpretation Code [facility] Work Phone: QRS Duration 87 ms [facility] Work Phone: QRS duration, electrocardiogram 87 ms Invalid Interpretation Code [facility] Work Phone: QT Interval new path ms [facility] Work Phone: QT interval, electrocardiogram new path ms Invalid Interpretation Code [facility] Work Phone: QTc Dennis 405 ms [facility] Work Phone: T Inola 37 deg [facility] Work Phone: T wave axis, electrocardiogram 37 deg Invalid Interpretation Code [facility] Work Phone: Clinical Lists Update: 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 11-18-2015 ALT enzyme act/vol 18 U/L [facility] Work Phone: AST enzyme act/vol 11 U/L [facility] Work Phone: Bilirubin mass conc 0.30 mg/dL [facility] Work Phone: Calcium mass conc 9.0 mg/dL [facility] Work Phone: Chloride molar conc 108 mmol/L [facility] Work Phone: Cholesterol in HDL mass conc 71 mg/dL [facility] Work Phone: Cholesterol in LDL mass conc 174 mg/dL [facility] Work Phone: Cholesterol mass conc 266 mg/dL [facility] Work Phone: CO2 24.0 mmol/L Invalid Interpretation Code [facility] Work Phone: CO2 ppres (BldV) 24.0 mmol/L [facility] Work Phone: Creatinine mass conc 0.77 mg/dL [facility] Work Phone: Glucose 122 mg/dL Invalid Interpretation Code [facility] Work Phone: Glucose mass conc 122 mg/dL [facility] Work Phone: Hematocrit (HCT) 40.2 % Invalid Interpretation Code [facility] Work Phone: Hematocrit Volume Fraction (Bld) 40.2 % [facility] Work Phone: Hemoglobin mass conc (Bld) 13.6 g/dL [facility] Work Phone: Platelets 382 10*3/mm3 Invalid Interpretation Code [facility] Work Phone: Platelets #/vol (Bld) 382 10*3/mm3 [facility] Work Phone: Potassium molar conc 3.8 mmol/L [facility] Work Phone: Protein mass conc 7.4 g/dL [facility] Work Phone: Sodium molar conc 139 mmol/L [facility] Work Phone: Thyrotropin Qn 1.51 u[iU]/mL [facility] Work Phone: Triglyceride mass conc 104 mg/dL [facility] Work Phone: Urea nitrogen/Creatinine mass ratio 11.7 mg/mg [facility] Work Phone: WBC #/vol (Bld) 7.8 10*3/uL [facility] Work Phone: WBC (Leukocytes) 7.8 10*3/uL Invalid Interpretation Code [facility] Work Phone: Culture, urine Bacteria identified Cx Nom (U) Klebsiella pneumoniae sp pneum [facility] Work Phone: Vital Signs Date Time Vital Sign Value Performing Clinician Facility 11-14-2024 13:05-0400 Body height 160.[address] Naomi Whyte DO Work Phone: [facility] 11-14-2024 13:05-0400 Body mass index (BMI) [Ratio] 36.6 kg/m2 Dr. Naomi Whyte DO Work Phone: [facility] 11-14-2024 13:05-0400 Body temperature 96.3 [degF] Dr. Naomi Whyte DO Work Phone: [facility] 11-14-2024 13:05-0400 Body weight 93.[address] Naomi Whyte DO Work Phone: [facility] 11-14-2024 13:05-0400 Diastolic blood pressure 57 mm[Hg] Dr. Naomi Whyte DO Work Phone: [facility] 11-14-2024 13:05-0400 Heart rate 98 /min Dr. Naomi Whyte DO Work Phone: [facility] 11-14-2024 13:05-0400 Respiratory rate 18 /min Dr. Naomi Whyte DO Work Phone: [facility] 11-14-2024 13:05-0400 SaO2% (BldA) [Mass fraction] 93 % Dr. Naomi Whyte DO Work Phone: [facility] 11-14-2024 13:05-0400 Systolic blood pressure 101 mm[Hg] Dr. Naomi Whyte DO Work Phone: [facility] 10-17-2024 13:24-0400 Body height 160.[address] Naomi Whyte DO Work Phone: [facility] 10-17-2024 13:24-0400 Body mass index (BMI) [Ratio] 37.2 kg/m2 Dr. Naomi Whyte DO Work Phone: [facility] 10-17-2024 13:24-0400 Body temperature 96.3 [degF] Dr. Naomi Whyte DO Work Phone: [facility] 10-17-2024 13:24-0400 Body weight 95.[address] Naomi Whyte DO Work Phone: [facility] 10-17-2024 13:24-0400 Diastolic blood pressure 80 mm[Hg] Dr. Naomi Whyte DO Work Phone: [facility] 10-17-2024 13:24-0400 Heart rate 71 /min Dr. Naomi Whyte DO Work Phone: [facility] 10-17-2024 13:24-0400 Respiratory rate 16 /min Dr. Naomi Whyte DO Work Phone: [facility] 10-17-2024 13:24-0400 SaO2% (BldA) [Mass fraction] 91 % Dr. Naomi Whyte DO Work Phone: [facility] 10-17-2024 13:24-0400 Systolic blood pressure 136 mm[Hg] Dr. Naomi Whyte DO Work Phone: [facility] 09-10-2024 14:39-0400 Body height 160.[address] Naomi Whyte DO Work Phone: [facility] 09-10-2024 14:39-0400 Body mass index (BMI) [Ratio] 36.6 kg/m2 Dr. Naoim Whyte DO Work Phone: [facility] 09-10-2024 14:39-0400 Body temperature 96.8 [degF] Dr. Naomi Whyte DO Work Phone: [facility] 09-10-2024 14:39-0400 Body weight 93.[address] Naomi Whyte DO Work Phone: [facility] 09-10-2024 14:39-0400 Diastolic blood pressure 61 mm[Hg] Dr. Naomi Whyte DO Work Phone: [facility] 09-10-2024 14:39-0400 Heart rate 66 /min Dr. Naomi Whyte DO Work Phone: [facility] 09-10-2024 14:39-0400 Respiratory rate 16 /min Dr. Naomi Whyte DO Work Phone: [facility] 09-10-2024 14:39-0400 SaO2% (BldA) [Mass fraction] 95 % Dr. Naomi Whyte DO Work Phone: [facility] 09-10-2024 14:39-0400 Systolic blood pressure 154 mm[Hg] Dr. Naomi Whyte DO Work Phone: [facility] 09-10-2024 08:24-0400 Body mass index (BMI) [Ratio] 36.6 kg/m2 Dr. Naomi Whyte DO Work Phone: [facility] 09-10-2024 08:24-0400 Body temperature 97.4 [degF] Dr. Naomi Whyte DO Work Phone: [facility] 09-10-2024 08:24-0400 Body weight 93.[address] Naomi Whyte DO Work Phone: [facility] 09-10-2024 08:24-0400 Diastolic blood pressure 81 mm[Hg] Dr. Naomi Whyte DO Work Phone: [facility] 09-10-2024 08:24-0400 Heart rate 86 /min Dr. Naomi Whyte DO Work Phone: [facility] 09-10-2024 08:24-0400 Respiratory rate 20 /min Dr. Naomi Whyte DO Work Phone: [facility] 09-10-2024 08:24-0400 SaO2% (BldA) [Mass fraction] 95 % Dr. Naomi Whyte DO Work Phone: [facility] 09-10-2024 08:24-0400 Systolic blood pressure 128 mm[Hg] Dr. Naomi Whyte DO Work Phone: [facility] 07-04-2024 11:36-0400 Body height 160.[address] Naomi Whyte DO Work Phone: [facility] 07-04-2024 11:36-0400 Body mass index (BMI) [Ratio] 36.1 kg/m2 Dr. Naomi Whyte DO Work Phone: [facility] 07-04-2024 11:36-0400 Body temperature 96.5 [degF] Dr. Naomi Whyte DO Work Phone: [facility] 07-04-2024 11:36-0400 Body weight 92.[address] Naomi Whyte DO Work Phone: [facility] 07-04-2024 11:36-0400 Diastolic blood pressure 68 mm[Hg] Dr. Naomi Whyte DO Work Phone: [facility] 07-04-2024 11:36-0400 Heart rate 77 /min Dr. Naomi Whyte DO Work Phone: [facility] 07-04-2024 11:36-0400 Respiratory rate 16 /min Dr. Naomi Whyte DO Work Phone: [facility] 07-04-2024 11:36-0400 SaO2% (BldA) [Mass fraction] 94 % Dr. Naomi Whyte DO Work Phone: [facility] 07-04-2024 11:36-0400 Systolic blood pressure 110 mm[Hg] Dr. Naomi Whyte DO Work Phone: [facility] 04-25-2024 12:27-0500 Body mass index (BMI) [Ratio] 35.4 kg/m2 Dr. Naomi Whyte DO Work Phone: [facility] 04-25-2024 12:27-0500 Body temperature 97.8 [degF] Dr. Naomi Whyte DO Work Phone: [facility] 04-25-2024 12:27-0500 Body weight 90.[address] Naomi Whyte DO Work Phone: [facility] 04-25-2024 12:27-0500 Diastolic blood pressure 75 mm[Hg] Dr. Naomi Whyte DO Work Phone: [facility] 04-25-2024 12:27-0500 Heart rate 93 /min Dr. Naomi Whyte DO Work Phone: [facility] 04-25-2024 12:27-0500 Respiratory rate 18 /min Dr. Naomi Whyte DO Work Phone: [facility] 04-25-2024 12:27-0500 SaO2% (BldA) [Mass fraction] 98 % Dr. Naomi Whyte DO Work Phone: [facility] 04-25-2024 12:27-0500 Systolic blood pressure 141 mm[Hg] Dr. Naomi Whyte DO Work Phone: [facility] 03-21-2024 12:13-0500 Body temperature 97.2 [degF] Dr. Naomi Whyte DO Work Phone: [facility] 03-21-2024 12:13-0500 Diastolic blood pressure 80 mm[Hg] Dr. Naomi Whyte DO Work Phone: [facility] 03-21-2024 12:13-0500 Heart rate 89 /min Dr. Naomi Whyte DO Work Phone: [facility] 03-21-2024 12:13-0500 Respiratory rate 16 /min Dr. Naomi Whyte DO Work Phone: [facility] 03-21-2024 12:13-0500 SaO2% (BldA) [Mass fraction] 98 % Dr. Naomi Whyte DO Work Phone: [facility] 03-21-2024 12:13-0500 Systolic blood pressure 136 mm[Hg] Dr. Naomi Whyte DO Work Phone: [facility] 03-12-2024 07:42-0500 Body mass index (BMI) [Ratio] 35.4 kg/m2 Dr. Naomi Whyte DO Work Phone: [facility] 03-12-2024 07:42-0500 Body temperature 95.3 [degF] Dr. Naomi Whyte DO Work Phone: [facility] 03-12-2024 07:42-0500 Body weight 90.[address] Naomi Whyte DO Work Phone: [facility] 03-12-2024 07:42-0500 Diastolic blood pressure 80 mm[Hg] Dr. Naomi Whyte DO Work Phone: [facility] 03-12-2024 07:42-0500 Heart rate 72 /min Dr. Naomi Whyte DO Work Phone: [facility] 03-12-2024 07:42-0500 Respiratory rate 20 /min Dr. Naomi Whyte DO Work Phone: [facility] 03-12-2024 07:42-0500 SaO2% (BldA) [Mass fraction] 97 % Dr. Naomi Whyte DO Work Phone: [facility] 03-12-2024 07:42-0500 Systolic blood pressure 127 mm[Hg] Dr. Naomi Whyte DO Work Phone: [facility] 08-15-2023 13:38-0400 Body height 160.[address] Kamilah Patel Work Phone: [facility] 08-15-2023 13:38-0400 Body temperature 97.4 [degF] Dr. Kamilah Patel Work Phone: [facility] 08-15-2023 13:38-0400 Diastolic blood pressure 68 mm[Hg] Dr. Kamilah Patel Work Phone: [facility] 08-15-2023 13:38-0400 Heart rate 89 /min Dr. Kamilah Patel Work Phone: [facility] 08-15-2023 13:38-0400 Respiratory rate 16 /min Dr. Kamilah Patel Work Phone: [facility] 08-15-2023 13:38-0400 SaO2% (BldA) [Mass fraction] 96 % Dr. Kamilah Patel Work Phone: [facility] 08-15-2023 13:38-0400 Systolic blood pressure 113 mm[Hg] Dr. Kamilah Patel Work Phone: [facility] 08-02-2023 07:57-0400 Body mass index (BMI) [Ratio] 33.8 kg/m2 Dr. Kamilah Patel Work Phone: [facility] 08-02-2023 07:57-0400 Body temperature 98.4 [degF] Dr. Kamilah Patel Work Phone: [facility] 08-02-2023 07:57-0400 Body weight 86.[address] Kamilah Patel Work Phone: [facility] 08-02-2023 07:57-0400 Diastolic blood pressure 74 mm[Hg] Dr. Kamilah Patel Work Phone: [facility] 08-02-2023 07:57-0400 Heart rate 75 /min Dr. Kamilah Patel Work Phone: [facility] 08-02-2023 07:57-0400 SaO2% (BldA) [Mass fraction] 95 % Dr. Kamilah Patel Work Phone: [facility] 08-02-2023 07:57-0400 Systolic blood pressure 113 mm[Hg] Dr. Kamilah Patel Work Phone: [facility] 06-15-2023 12:37-0500 Body height 160.[address] Kamilah Patel Work Phone: [facility] 06-15-2023 12:37-0500 Body mass index (BMI) [Ratio] 33.6 kg/m2 Dr. Kamilah Patel Work Phone: [facility] 06-15-2023 12:37-0500 Body temperature 97 [degF] Dr. Kamilah Patel Work Phone: [facility] 06-15-2023 12:37-0500 Body weight 86.[address] Kamilah Patel Work Phone: [facility] 06-15-2023 12:37-0500 Diastolic blood pressure 65 mm[Hg] Dr. Kamilah Patel Work Phone: [facility] 06-15-2023 12:37-0500 Heart rate 77 /min Dr. Kamilah Patel Work Phone: [facility] 06-15-2023 12:37-0500 Respiratory rate 14 /min Dr. Kamilah Patel Work Phone: [facility] 06-15-2023 12:37-0500 SaO2% (BldA) [Mass fraction] 96 % Dr. Kamilah Patel Work Phone: [facility] 06-15-2023 12:37-0500 Systolic blood pressure 110 mm[Hg] Dr. Kamilah Patel Work Phone: [facility] 05-18-2023 12:30-0500 Body height 160.[address] Kamilah Patel Work Phone: [facility] 05-18-2023 12:30-0500 Body mass index (BMI) [Ratio] 33.6 kg/m2 Dr. Kamilah Patel Work Phone: [facility] 05-18-2023 12:30-0500 Body temperature 97.6 [degF] Dr. Kamilah Patel Work Phone: [facility] 05-18-2023 12:30-0500 Body weight 86.[address] Kamilah Patel Work Phone: [facility] 05-18-2023 12:30-0500 Diastolic blood pressure 77 mm[Hg] Dr. Kaimlah Patel Work Phone: [facility] 05-18-2023 12:30-0500 Heart rate 78 /min Dr. Kamilah Patel Work Phone: [facility] 05-18-2023 12:30-0500 Respiratory rate 16 /min Dr. Kamilah Patel Work Phone: [facility] 05-18-2023 12:30-0500 SaO2% (BldA) [Mass fraction] 98 % Dr. Kamilah Patel Work Phone: [facility] 05-18-2023 12:30-0500 Systolic blood pressure 124 mm[Hg] Dr. Kamilah Patel Work Phone: [facility] 05-16-2023 08:00-0500 Body mass index (BMI) [Ratio] 33.8 kg/m2 Dr. Kamilah Patel Work Phone: [facility] 05-16-2023 08:00-0500 Body temperature 98.7 [degF] Dr. Kamilah Patel Work Phone: [facility] 05-16-2023 08:00-0500 Body weight 86.[address] Kamilah Patel Work Phone: [facility] 05-16-2023 08:00-0500 Diastolic blood pressure 62 mm[Hg] Dr. Kamilah Patel Work Phone: [facility] 05-16-2023 08:00-0500 Heart rate 92 /min Dr. Kamilah Patel Work Phone: [facility] 05-16-2023 08:00-0500 Respiratory rate 16 /min Dr. Kamilah Patel Work Phone: [facility] 05-16-2023 08:00-0500 SaO2% (BldA) [Mass fraction] 96 % Dr. Kamilah Patel Work Phone: [facility] 05-16-2023 08:00-0500 Systolic blood pressure 130 mm[Hg] Dr. Kamilah Patel Work Phone: [facility] 04-20-2023 13:17-0500 Body height 160.[address] Kamilah Patel Work Phone: [facility] 04-20-2023 13:17-0500 Body mass index (BMI) [Ratio] 32.8 kg/m2 Dr. Kamilah Patel Work Phone: [facility] 04-20-2023 13:17-0500 Body temperature 97.3 [degF] Dr. Kamilah Patel Work Phone: [facility] 04-20-2023 13:17-0500 Body weight 83.[address] Kamilah Patel Work Phone: [facility] 04-20-2023 13:17-0500 Diastolic blood pressure 64 mm[Hg] Dr. Kamilah Patel Work Phone: [facility] 04-20-2023 13:17-0500 Heart rate 73 /min Dr. Kamilah Patel Work Phone: [facility] 04-20-2023 13:17-0500 Respiratory rate 16 /min Dr. Kamilah Patel Work Phone: [facility] 04-20-2023 13:17-0500 SaO2% (BldA) [Mass fraction] 96 % Dr. Kamilah Patel Work Phone: [facility] 04-20-2023 13:17-0500 Systolic blood pressure 122 mm[Hg] Dr. Kamilah Patel Work Phone: [facility] 04-20-2023 12:32-0500 Body mass index (BMI) [Ratio] 32.8 kg/m2 Dr. Kamilah Patel Work Phone: [facility] 04-20-2023 12:32-0500 Body temperature 97.3 [degF] Dr. Kamilah Patel Work Phone: [facility] 04-20-2023 12:32-0500 Body weight 83.[address] Kamilah Patel Work Phone: [facility] 04-20-2023 12:32-0500 Diastolic blood pressure 71 mm[Hg] Dr. Kamilah Patel Work Phone: [facility] 04-20-2023 12:32-0500 Heart rate 90 /min Dr. Kamilah Patel Work Phone: [facility] 04-20-2023 12:32-0500 Respiratory rate 18 /min Dr. Kamilah Patel Work Phone: [facility] 04-20-2023 12:32-0500 SaO2% (BldA) [Mass fraction] 94 % Dr. Kamilah Patel Work Phone: [facility] 04-20-2023 12:32-0500 Systolic blood pressure 117 mm[Hg] Dr. Kamilah Patel Work Phone: [facility] 02-23-2023 13:08-0500 Body height 160.[address] Kamilah Patel Work Phone: [facility] 02-23-2023 13:08-0500 Body temperature 97.6 [degF] Dr. Kamilah Patel Work Phone: [facility] 02-23-2023 13:08-0500 Diastolic blood pressure 57 mm[Hg] Dr. Kamilah Patel Work Phone: [facility] 02-23-2023 13:08-0500 Heart rate 64 /min Dr. Kamilah Patel Work Phone: [facility] 02-23-2023 13:08-0500 Respiratory rate 16 /min Dr. Kamilah Patel Work Phone: [facility] 02-23-2023 13:08-0500 SaO2% (BldA) [Mass fraction] 98 % Dr. Kamilah Patel Work Phone: [facility] 02-23-2023 13:08-0500 Systolic blood pressure 103 mm[Hg] Dr. Kamilah Patel Work Phone: [phone])[phone] [place] [address] 2023 11:59-0400 Body mass index (BMI) [Ratio] 32.4 kg/m2 Dr. Kamilah Patel Work Phone: [phone] [place] [address] 2023 11:59-0400 Body temperature 94.6 [degF] Dr. Kamilah Patel Work Phone: [facility] 2023 11:59-0400 Body weight [address] Kamilah Patel Work Phone: [facility] 2023 11:59-0400 Diastolic blood pressure 74 mm[Hg] Dr. Kamilah Patel Work Phone: [facility] 2023 11:59-0400 Heart rate 75 /min Dr. Kamilah Patel Work Phone: [facility] 2023 11:59-0400 Respiratory rate 18 /min Dr. Kamilah Patel Work Phone: [facility] 2023 11:59-0400 SaO2% (BldA) [Mass fraction] 98 % Dr. Kamilah Patel Work Phone: [facility] 2023 11:59-0400 Systolic blood pressure 114 mm[Hg] Dr. Kamilah Patel Work Phone: [facility] 01-26-2023 13:19-0400 Body height 160.02 cm [facility] 01-26-2023 13:19-0400 Body mass index (BMI) [Ratio] 32.4 kg/m2 [facility] 01-26-2023 13:19-0400 Body temperature 97 [degF] [facility] 01-26-2023 13:19-0400 Body weight 83 kg [facility] 01-26-2023 13:19-0400 Diastolic blood pressure 75 mm[Hg] [facility] 01-26-2023 13:19-0400 Heart rate 83 /min [facility] 01-26-2023 13:19-0400 Respiratory rate 18 /min [facility] 01-26-2023 13:19-0400 SaO2% (BldA) [Mass fraction] 93 % [facility] 01-26-2023 13:19-0400 Systolic blood pressure 120 mm[Hg] [facility] 12-29-2022 13:09-0400 Body height 160.02 cm [facility] 12-29-2022 13:09-0400 Body temperature 96.8 [degF] [facility] 12-29-2022 13:09-0400 Diastolic blood pressure 57 mm[Hg] [facility] 12-29-2022 13:09-0400 Heart rate 75 /min [facility] 12-29-2022 13:09-0400 Respiratory rate 16 /min [facility] 12-29-2022 13:09-0400 SaO2% (BldA) [Mass fraction] 95 % [facility] 12-29-2022 13:09-0400 Systolic blood pressure 110 mm[Hg] [facility] 12-15-2022 09:38-0400 Diastolic blood pressure 70 mm[Hg] [facility] 12-15-2022 09:38-0400 Heart rate 99 /min [facility] 12-15-2022 09:38-0400 Respiratory rate 20 /min [facility] 12-15-2022 09:38-0400 SaO2% (BldA) [Mass fraction] 99 % [facility] 12-15-2022 09:38-0400 Systolic blood pressure 119 mm[Hg] [facility] 12-15-2022 07:23-0400 Body temperature 98 [degF] [facility] 12-15-2022 07:11-0400 Body height 160.02 cm [facility] 12-15-2022 07:11-0400 Body mass index (BMI) [Ratio] 33.6 kg/m2 [facility] 12-15-2022 07:11-0400 Body weight 86.09 kg [facility] 12-01-2022 13:54-0400 Body height 160.02 cm [facility] 12-01-2022 13:54-0400 Body mass index (BMI) [Ratio] 33.1 kg/m2 [facility] 12-01-2022 13:54-0400 Body temperature 96.7 [degF] [facility] 12-01-2022 13:54-0400 Body weight 84.82 kg [facility] 12-01-2022 13:54-0400 Diastolic blood pressure 53 mm[Hg] [facility] 12-01-2022 13:54-0400 Heart rate 76 /min [facility] 12-01-2022 13:54-0400 Respiratory rate 16 /min [facility] 12-01-2022 13:54-0400 SaO2% (BldA) [Mass fraction] 92 % [facility] 12-01-2022 13:54-0400 Systolic blood pressure 100 mm[Hg] [facility] 11-02-2022 15:11-0400 Body mass index (BMI) [Ratio] 32.8 kg/m2 [facility] 11-02-2022 15:11-0400 Body temperature 96.2 [degF] [facility] 11-02-2022 15:11-0400 Body weight 83.91 kg [facility] 11-02-2022 15:11-0400 Diastolic blood pressure 70 mm[Hg] [facility] 11-02-2022 15:11-0400 Heart rate 84 /min [facility] 11-02-2022 15:11-0400 Respiratory rate 18 /min [facility] 11-02-2022 15:11-0400 SaO2% (BldA) [Mass fraction] 95 % [facility] 11-02-2022 15:11-0400 Systolic blood pressure 113 mm[Hg] [facility] 09-28-2022 12:57-0400 Body height 160.[address] Kamilah Patel Work Phone: [facility] 09-28-2022 12:57-0400 Body temperature 97.1 [degF] Dr. Kamilah Patel Work Phone: [facility] 09-28-2022 12:57-0400 Diastolic blood pressure 63 mm[Hg] Dr. Kamilah Patel Work Phone: [facility] 09-28-2022 12:57-0400 Heart rate 64 /min Dr. Kamilah Patel Work Phone: [facility] 09-28-2022 12:57-0400 Respiratory rate 16 /min Dr. Kamilah Patel Work Phone: [facility] 09-28-2022 12:57-0400 SaO2% (BldA) [Mass fraction] 97 % Dr. Kamilah Patel Work Phone: [facility] 09-28-2022 12:57-0400 Systolic blood pressure 117 mm[Hg] Dr. Kamilah Patel Work Phone: [facility] 08-24-2022 13:57-0400 Body mass index (BMI) [Ratio] 31.5 kg/m2 Dr. Kamilah Patel Work Phone: [facility] 08-24-2022 13:57-0400 Body temperature 97.8 [degF] Dr. Kamilah Patel Work Phone: [facility] 08-24-2022 13:57-0400 Body weight 80.[address] Kamilah Patel Work Phone: [facility] 08-24-2022 13:57-0400 Diastolic blood pressure 62 mm[Hg] Dr. Kamilah Patel Work Phone: [facility] 08-24-2022 13:57-0400 Heart rate 68 /min Dr. Kamilah Patel Work Phone: [facility] 08-24-2022 13:57-0400 Respiratory rate 16 /min Dr. Kamilah Patel Work Phone: [facility] 08-24-2022 13:57-0400 SaO2% (BldA) [Mass fraction] 98 % Dr. Kamilah Patel Work Phone: [facility] 08-24-2022 13:57-0400 Systolic blood pressure 112 mm[Hg] Dr. Kamilah Patel Work Phone: [facility] 08-01-2022 07:46-0400 Body mass index (BMI) [Ratio] 31.5 kg/m2 Dr. Kamilah Patel Work Phone: [facility] 08-01-2022 07:46-0400 Body temperature 98.1 [degF] Dr. Kamilah Patel Work Phone: [facility] 08-01-2022 07:46-0400 Body weight 80.[address] Kamilah Patel Work Phone: [facility] 08-01-2022 07:46-0400 Diastolic blood pressure 70 mm[Hg] Dr. Kamilah Patel Work Phone: [facility] 08-01-2022 07:46-0400 Heart rate 77 /min Dr. Kamilah Patel Work Phone: [facility] 08-01-2022 07:46-0400 Respiratory rate 18 /min Dr. Kamilah Patel Work Phone: [facility] 08-01-2022 07:46-0400 SaO2% (BldA) [Mass fraction] 95 % Dr. Kamilah Patel Work Phone: [facility] 08-01-2022 07:46-0400 Systolic blood pressure 103 mm[Hg] Dr. Kamilah Patel Work Phone: [facility] 07-27-2022 14:19-0400 Body height 160.02 cm [facility] 07-27-2022 14:19-0400 Body temperature 97 [degF] [facility] 07-27-2022 14:19-0400 Diastolic blood pressure 67 mm[Hg] [facility] 07-27-2022 14:19-0400 Heart rate 90 /min [facility] 07-27-2022 14:19-0400 Respiratory rate 16 /min [facility] 07-27-2022 14:19-0400 SaO2% (BldA) [Mass fraction] 94 % [facility] 07-27-2022 14:19-0400 Systolic blood pressure 94 mm[Hg] [facility] 06-22-2022 13:05-0400 Body height 160.02 cm [facility] 06-22-2022 13:05-0400 Body mass index (BMI) [Ratio] 31.3 kg/m2 [facility] 06-22-2022 13:05-0400 Body weight 80.28 kg [facility] 06-22-2022 13:05-0400 Diastolic blood pressure 66 mm[Hg] [facility] 06-22-2022 13:05-0400 Heart rate 72 /min [facility] 06-22-2022 13:05-0400 Respiratory rate 16 /min [facility] 06-22-2022 13:05-0400 SaO2% (BldA) [Mass fraction] 100 % [facility] 06-22-2022 13:05-0400 Systolic blood pressure 101 mm[Hg] [facility] 05-25-2022 13:17-0500 Body height 160.[address] Kamilah Patel Work Phone: [facility] 05-25-2022 13:17-0500 Body mass index (BMI) [Ratio] 31.3 kg/m2 Dr. Kamilah Patel Work Phone: [facility] 05-25-2022 13:17-0500 Body temperature 97.5 [degF] Dr. Kamilah Patel Work Phone: [facility] 05-25-2022 13:17-0500 Body weight 80.[address] Kamilah Patel Work Phone: [facility] 05-25-2022 13:17-0500 Diastolic blood pressure 62 mm[Hg] Dr. Kamilah Patel Work Phone: [facility] 05-25-2022 13:17-0500 Heart rate 91 /min Dr. Kamilah Patel Work Phone: [facility] 05-25-2022 13:17-0500 Respiratory rate 18 /min Dr. Kamilah Patel Work Phone: [facility] 05-25-2022 13:17-0500 SaO2% (BldA) [Mass fraction] 94 % Dr. Kamilah Patel Work Phone: [facility] 05-25-2022 13:17-0500 Systolic blood pressure 97 mm[Hg] Dr. Kamilah Patel Work Phone: [facility] 04-27-2022 12:43-0500 Body mass index (BMI) [Ratio] 31.8 kg/m2 Dr. Kamilah Patel Work Phone: [facility] 04-27-2022 12:43-0500 Body temperature 97.5 [degF] Dr. Kamilah Patel Work Phone: [facility] 04-27-2022 12:43-0500 Body weight 81.[address] Kamilah Patel Work Phone: [facility] 04-27-2022 12:43-0500 Diastolic blood pressure 69 mm[Hg] Dr. Kamilah Patel Work Phone: [facility] 04-27-2022 12:43-0500 Heart rate 82 /min Dr. Kamilah Patel Work Phone: [facility] 04-27-2022 12:43-0500 Respiratory rate 16 /min Dr. Kamilah Patel Work Phone: [facility] 04-27-2022 12:43-0500 SaO2% (BldA) [Mass fraction] 93 % Dr. Kamilah Patel Work Phone: [facility] 04-27-2022 12:43-0500 Systolic blood pressure 125 mm[Hg] Dr. Kamilah Patel Work Phone: [facility] 03-21-2022 14:02-0500 Diastolic blood pressure 74 mm[Hg] Dr. Kamilah Patel Work Phone: [facility] 03-21-2022 14:02-0500 Heart rate 71 /min Dr. Kamilah Patel Work Phone: [facility] 03-21-2022 14:02-0500 SaO2% (BldA) [Mass fraction] 93 % Dr. Kamilah Patel Work Phone: [facility] 03-21-2022 14:02-0500 Systolic blood pressure 135 mm[Hg] Dr. Kamilah Patel Work Phone: [facility] 02-08-2022 14:23-0400 Diastolic blood pressure 64 mm[Hg] Dr. Kamilah Patel Work Phone: [facility] 02-08-2022 14:23-0400 Systolic blood pressure 108 mm[Hg] Dr. Kamilah Patel Work Phone: [facility] 02-08-2022 13:15-0400 Body temperature 98 [degF] Dr. Kamilah Patel Work Phone: [facility] 02-08-2022 13:15-0400 Heart rate 71 /min Dr. Kamialh Patel Work Phone: [facility] 02-08-2022 13:15-0400 Respiratory rate 14 /min Dr. Kamilah Patel Work Phone: [facility] 02-08-2022 13:15-0400 SaO2% (BldA) [Mass fraction] 96 % Dr. Kamilah Patel Work Phone: [facility] 01-30-2022 08:06-0400 Body height 160.[address] Kamilah Patel Work Phone: [facility] Work Phone: 01-30-2022 08:06-0400 Body mass index (BMI) [Ratio] 33.3 kg/m2 Dr. Kamilah Patel Work Phone: [facility] Work Phone: 01-30-2022 08:06-0400 Body temperature 98 [degF] Dr. Kamilah Patel Work Phone: [facility] Work Phone: 01-30-2022 08:06-0400 Body weight 85.[address] Kamilah Patel Work Phone: [facility] Work Phone: 01-30-2022 08:06-0400 Diastolic blood pressure 78 mm[Hg] Dr. Kamilah Patel Work Phone: [facility] Work Phone: 01-30-2022 08:06-0400 Heart rate 71 /min Dr. Kamilah Patel Work Phone: [facility] Work Phone: 01-30-2022 08:06-0400 Respiratory rate 16 /min Dr. Kamilah Patel Work Phone: [facility] Work Phone: 01-30-2022 08:06-0400 SaO2% (BldA) [Mass fraction] 94 % Dr. Kamilah Patel Work Phone: [facility] Work Phone: 01-30-2022 08:06-0400 Systolic blood pressure 132 mm[Hg] Dr. Kamilah Patel Work Phone: [facility] Work Phone: 01-24-2022 13:49-0400 Body height 160.[address] Kamilah Patel Work Phone: [facility] Work Phone: 01-24-2022 13:49-0400 Body mass index (BMI) [Ratio] 32.8 kg/m2 Dr. Kamilah Patel Work Phone: [facility] Work Phone: 01-24-2022 13:49-0400 Body temperature 97.8 [degF] Dr. Kamilah Patel Work Phone: [facility] Work Phone: 01-24-2022 13:49-0400 Body weight 83.[address] Kamilah Patel Work Phone: [facility] Work Phone: 01-24-2022 13:49-0400 Diastolic blood pressure 62 mm[Hg] Dr. Kamilah Patel Work Phone: [facility] Work Phone: 01-24-2022 13:49-0400 Heart rate 76 /min Dr. Kamilah Patel Work Phone: [facility] Work Phone: 01-24-2022 13:49-0400 Respiratory rate 16 /min Dr. Kamilah Patel Work Phone: [facility] Work Phone: 01-24-2022 13:49-0400 SaO2% (BldA) [Mass fraction] 97 % Dr. Kamilah Patel Work Phone: [facility] Work Phone: 01-24-2022 13:49-0400 Systolic blood pressure 117 mm[Hg] Dr. Kamilah Patel Work Phone: [facility] Work Phone: 12-27-2021 14:25-0400 Body temperature 98 [degF] Dr. Kamilah Patel Work Phone: [facility] Work Phone: 12-27-2021 14:25-0400 Diastolic blood pressure 74 mm[Hg] Dr. Kamilah Patel Work Phone: [facility] Work Phone: 12-27-2021 14:25-0400 Heart rate 84 /min Dr. Kamilah Patel Work Phone: [facility] Work Phone: 12-27-2021 14:25-0400 SaO2% (BldA) [Mass fraction] 93 % Dr. Kamilah Patel Work Phone: [facility] Work Phone: 12-27-2021 14:25-0400 Systolic blood pressure 113 mm[Hg] Dr. Kamilah Patel Work Phone: [facility] Work Phone: 11-23-2021 13:04-0400 Body height 160.[address] Kamilah Patel Work Phone: [facility] Work Phone: 11-23-2021 13:04-0400 Body mass index (BMI) [Ratio] 34 kg/m2 Dr. Kamilah Patel Work Phone: [facility] Work Phone: 11-23-2021 13:04-0400 Body temperature 97.5 [degF] Dr. Kamilah Patel Work Phone: [facility] Work Phone: 11-23-2021 13:04-0400 Body weight 87.[address] Kamilah Patel Work Phone: [facility] Work Phone: 11-23-2021 13:04-0400 Diastolic blood pressure 62 mm[Hg] Dr. Kamilah Patel Work Phone: [facility] Work Phone: 11-23-2021 13:04-0400 Heart rate 60 /min Dr. Kamilah Patel Work Phone: [facility] Work Phone: 11-23-2021 13:04-0400 Respiratory rate 16 /min Dr. Kamilah Patel Work Phone: [facility] Work Phone: 11-23-2021 13:04-0400 SaO2% (BldA) [Mass fraction] 96 % Dr. Kamilah Patel Work Phone: [facility] Work Phone: 11-23-2021 13:04-0400 Systolic blood pressure 119 mm[Hg] Dr. Kamilah Patel Work Phone: [facility] Work Phone: 11-09-2021 14:53-0400 Body temperature 97.9 [degF] Dr. Kamilah Patel Work Phone: [facility] Work Phone: 11-09-2021 14:53-0400 Diastolic blood pressure 74 mm[Hg] Dr. Kamilah Patel Work Phone: [facility] Work Phone: 11-09-2021 14:53-0400 Heart rate 90 /min Dr. Kamilah Patel Work Phone: [facility] Work Phone: 11-09-2021 14:53-0400 Respiratory rate 16 /min Dr. Kamilah Patel Work Phone: [facility] Work Phone: 11-09-2021 14:53-0400 SaO2% (BldA) [Mass fraction] 96 % Dr. Kamilah Patel Work Phone: [facility] Work Phone: 11-09-2021 14:53-0400 Systolic blood pressure 116 mm[Hg] Dr. Kamilah Patel Work Phone: [facility] Work Phone: 10-21-2021 08:56-0400 Body temperature 96.5 [degF] Dr. Kamilah Patel Work Phone: [facility] Work Phone: 10-21-2021 08:56-0400 Diastolic blood pressure 70 mm[Hg] Dr. Kamilah Patel Work Phone: [facility] Work Phone: 10-21-2021 08:56-0400 Heart rate 67 /min Dr. Kamilah Patel Work Phone: [facility] Work Phone: 10-21-2021 08:56-0400 SaO2% (BldA) [Mass fraction] 96 % Dr. Kamilah Patel Work Phone: [facility] Work Phone: 10-21-2021 08:56-0400 Systolic blood pressure 137 mm[Hg] Dr. Kamilah Patel Work Phone: [facility] Work Phone: 09-02-2021 13:53-0400 Body height 160.[address] Kamilah Patel Work Phone: [facility] Work Phone: 09-02-2021 13:53-0400 Body temperature 97.4 [degF] Dr. Kamilah Patel Work Phone: [facility] Work Phone: 09-02-2021 13:53-0400 Diastolic blood pressure 62 mm[Hg] Dr. Kamilah Patel Work Phone: [facility] Work Phone: 09-02-2021 13:53-0400 Heart rate 79 /min Dr. Kamilah Patel Work Phone: [facility] Work Phone: 09-02-2021 13:53-0400 Respiratory rate 16 /min Dr. Kamilah Patel Work Phone: [facility] Work Phone: 09-02-2021 13:53-0400 SaO2% (BldA) [Mass fraction] 94 % Dr. Kamilah Patel Work Phone: [facility] Work Phone: 09-02-2021 13:53-0400 Systolic blood pressure 106 mm[Hg] Dr. Kamilah Patel Work Phone: [facility] Work Phone: 08-05-2021 13:27-0400 Body height 160.[address] Kamilah Patel Work Phone: [facility] Work Phone: 08-05-2021 13:27-0400 Body temperature 96.9 [degF] Dr. Kamilah Patel Work Phone: [facility] Work Phone: 08-05-2021 13:27-0400 Diastolic blood pressure 63 mm[Hg] Dr. Kamilah Patel Work Phone: [facility] Work Phone: 08-05-2021 13:27-0400 Heart rate 84 /min Dr. Kamilah Patel Work Phone: [facility] Work Phone: 08-05-2021 13:27-0400 Respiratory rate 20 /min Dr. Kamilah Patel Work Phone: [facility] Work Phone: 08-05-2021 13:27-0400 SaO2% (BldA) [Mass fraction] 95 % Dr. Kamilah Patel Work Phone: [facility] Work Phone: 08-05-2021 13:27-0400 Systolic blood pressure 110 mm[Hg] Dr. Kamilah Patel Work Phone: [facility] Work Phone: 07-07-2021 10:02-0400 Body height 160.[address] Kamilah Patel Work Phone: [facility] Work Phone: 07-07-2021 10:02-0400 Body mass index (BMI) [Ratio] 33.6 kg/m2 Dr. Kamilah Patel Work Phone: [facility] Work Phone: 07-07-2021 10:02-0400 Body temperature 97.5 [degF] Dr. Kamilah Patel Work Phone: [facility] Work Phone: 07-07-2021 10:02-0400 Body weight 86.[address] Kamilah Patel Work Phone: [facility] Work Phone: 07-07-2021 10:02-0400 Diastolic blood pressure 82 mm[Hg] Dr. Kamilah Patel Work Phone: [facility] Work Phone: 07-07-2021 10:02-0400 Heart rate 77 /min Dr. Kamilah Patel Work Phone: [facility] Work Phone: 07-07-2021 10:02-0400 Respiratory rate 19 /min Dr. Kamilah Patel Work Phone: [facility] Work Phone: 07-07-2021 10:02-0400 SaO2% (BldA) [Mass fraction] 92 % Dr. Kamilah Patel Work Phone: [facility] Work Phone: 07-07-2021 10:02-0400 Systolic blood pressure 128 mm[Hg] Dr. Kamilah Patel Work Phone: [facility] Work Phone: 05-20-2021 10:07-0500 Body temperature 97.2 [degF] Dr. Kamilah Patel Work Phone: [facility] Work Phone: 05-20-2021 10:07-0500 Diastolic blood pressure 70 mm[Hg] Dr. Kamilah Patel Work Phone: [facility] Work Phone: 05-20-2021 10:07-0500 Heart rate 91 /min Dr. Kamilah Patel Work Phone: [facility] Work Phone: 05-20-2021 10:07-0500 Respiratory rate 16 /min Dr. Kamilah Patel Work Phone: [facility] Work Phone: 05-20-2021 10:07-0500 SaO2% (BldA) [Mass fraction] 96 % Dr. Kamilah Patel Work Phone: [facility] Work Phone: 05-20-2021 10:07-0500 Systolic blood pressure 118 mm[Hg] Dr. aKmilah Patel Work Phone: [facility] Work Phone: 04-18-2021 05:33-0500 Body temperature 97.5 [degF] Dr. Kamilah Patel Work Phone: [facility] Work Phone: 04-18-2021 05:33-0500 Diastolic blood pressure 68 mm[Hg] Dr. Kamilah Patel Work Phone: [facility] Work Phone: 04-18-2021 05:33-0500 Heart rate 68 /min Dr. Kamilah Patel Work Phone: [facility] Work Phone: 04-18-2021 05:33-0500 Respiratory rate 18 /min Dr. Kamilah Patel Work Phone: [facility] Work Phone: 04-18-2021 05:33-0500 SaO2% (BldA) [Mass fraction] 97 % Dr. Kamilah Patel Work Phone: [facility] Work Phone: 04-18-2021 05:33-0500 Systolic blood pressure 114 mm[Hg] Dr. Kamilah Patel Work Phone: [facility] Work Phone: 04-06-2021 15:50-0500 Body temperature 97.1 [degF] Dr. Kamilah Patel Work Phone: [facility] Work Phone: 04-06-2021 15:50-0500 Diastolic blood pressure 76 mm[Hg] Dr. Kamilah Patel Work Phone: [facility] Work Phone: 04-06-2021 15:50-0500 Heart rate 69 /min Dr. Kamilah Patel Work Phone: [facility] Work Phone: 04-06-2021 15:50-0500 Respiratory rate 18 /min Dr. Kamilah Patel Work Phone: [facility] Work Phone: 04-06-2021 15:50-0500 SaO2% (BldA) [Mass fraction] 93 % Dr. Kamilah Patel Work Phone: [facility] Work Phone: 04-06-2021 15:50-0500 Systolic blood pressure 108 mm[Hg] Dr. Kamilah Patel Work Phone: [facility] Work Phone: 04-04-2021 21:01-0500 Body mass index (BMI) [Ratio] 35.2 kg/m2 Dr. Kamilah Patel Work Phone: [facility] Work Phone: 04-04-2021 21:01-0500 Body temperature 97.6 [degF] Dr. Kamilah Patel Work Phone: [facility] Work Phone: 04-04-2021 21:01-0500 Body weight 90.[address] Kamilah Patel Work Phone: [facility] Work Phone: 04-04-2021 21:01-0500 Diastolic blood pressure 73 mm[Hg] Dr. Kamilah Patel Work Phone: [facility] Work Phone: 04-04-2021 21:01-0500 Heart rate 100 /min Dr. Kamilah Patel Work Phone: [facility] Work Phone: 04-04-2021 21:01-0500 Respiratory rate 20 /min Dr. Kamilah Patel Work Phone: [facility] Work Phone: 04-04-2021 21:01-0500 SaO2% (BldA) [Mass fraction] 93 % Dr. Kamilah Patel Work Phone: [facility] Work Phone: 04-04-2021 21:01-0500 Systolic blood pressure 125 mm[Hg] Dr. Kamilah Patel Work Phone: [facility] Work Phone: 03-11-2021 12:47-0500 Body mass index (BMI) [Ratio] 35 kg/m2 Dr. Kamilah Patel Work Phone: [facility] Work Phone: 03-11-2021 12:47-0500 Body temperature 96.6 [degF] Dr. Kamilah Patel Work Phone: [facility] Work Phone: 03-11-2021 12:47-0500 Body weight 89.[address] Kamilah Patel Work Phone: [facility] Work Phone: 03-11-2021 12:47-0500 Diastolic blood pressure 66 mm[Hg] Dr. Kamilah Patel Work Phone: [facility] Work Phone: 03-11-2021 12:47-0500 Heart rate 75 /min Dr. Kamilah Patel Work Phone: [facility] Work Phone: 03-11-2021 12:47-0500 Respiratory rate 16 /min Dr. Kamilah Patel Work Phone: [facility] Work Phone: 03-11-2021 12:47-0500 SaO2% (BldA) [Mass fraction] 97 % Dr. Kamilah Patel Work Phone: [facility] Work Phone: 03-11-2021 12:47-0500 Systolic blood pressure 136 mm[Hg] Dr. Kamilah Patel Work Phone: [facility] Work Phone: 11-09-2016 15:43-0400 BMI (Body Mass Index) 27.87 kg/m2 Mariel Coronado LPN [facility] Work Phone: 11-09-2016 15:43-0400 Body Temperature 97.7 [degF] Mariel Leroyar [employer] [facility] Work Phone: 11-09-2016 15:43-0400 BP Diastolic 80 mm[Hg] Mariel Leroyar [employer] [facility] Work Phone: 11-09-2016 15:43-0400 BP Systolic 126 mm[Hg] Marielbala Coronado [employer] [facility] Work Phone: 11-09-2016 15:43-0400 Height 162.56 cm Mariel Cogar [employer] [facility] Work Phone: 11-09-2016 15:43-0400 Pulse (Heart Rate) 79 /min Marielbala Coronado LPN [facility] Work Phone: 11-09-2016 15:43-0400 Respiratory Rate 15 /min Marielbala Coronado [employer] [facility] Work Phone: 11-09-2016 15:43-0400 Weight 73.66 kg Marielbala Coronado [employer] [facility] Work Phone: 10-09-2016 12:46-0400 BMI (Body Mass Index) 27.94 kg/m2 Leilani Baron LPN [facility] Work Phone: 10-09-2016 12:46-0400 Body Temperature 97.7 [degF] Leilani Baron LPN [facility] Work Phone: 10-09-2016 12:46-0400 BP Diastolic 72 mm[Hg] Leilani Baron ANUP [facility] Work Phone: 10-09-2016 12:46-0400 BP Systolic 108 mm[Hg] Leilani Baron ANUP [facility] Work Phone: 10-09-2016 12:46-0400 Height 162.56 cm Leilani Baron LPN [facility] Work Phone: 10-09-2016 12:46-0400 Pulse (Heart Rate) 64 /min Leilani Baron LPN [facility] Work Phone: 10-09-2016 12:46-0400 Pulse Oximetry 95 % Leilani Baron LPN [facility] Work Phone: 10-09-2016 12:46-0400 Respiratory Rate 12 /min Leilani Baron LPN [facility] Work Phone: 10-09-2016 12:46-0400 Weight 73.85 kg Leilani Baron LPN [facility] Work Phone: 09-20-2016 13:04-0400 BMI (Body Mass Index) 28.87 kg/m2 Brisa Ball LPN [facility] Work Phone: 09-20-2016 13:04-0400 Body Temperature 98.4 [degF] Brisa Ball LPN [facility] Work Phone: 09-20-2016 13:04-0400 BP Diastolic 73 mm[Hg] Brisa Yensho [employer] [facility] [place] Work Phone: 09-20-2016 13:04-0400 BP Systolic 104 mm[Hg] Brisa Yensho [employer]CE[employer] [facility] [place] Work Phone: 09-20-2016 13:04-0400 Height 160.02 cm Brisa Yensho [employer]CE[employer] [facility] [place] Work Phone: 09-20-2016 13:04-0400 Pulse (Heart Rate) 70 /min Brisa Yensho [employer] [facility] [place] Work Phone: 09-20-2016 13:04-0400 Pulse Oximetry 96 % Brisa Yensho [employer] [facility] [place] Work Phone: 09-20-2016 13:04-0400 Respiratory Rate 18 /min Brisa Williamnsho [employer] [facility] [place] Work Phone: 09-20-2016 13:04-0400 Weight 73.94 kg Brisa Yensho [employer] [facility] [place] Work Phone: 02-03-2016 12:57-0400 BMI (Body Mass Index) 31.88 kg/m2 Kristen Marie [employer] RECE[employer] [facility] [place] Work Phone: 02-03-2016 12:57-0400 Body Temperature 96.62 [degF] Kristen Marie [employer]CE[employer] [facility] [place] Work Phone: 02-03-2016 12:57-0400 Body Temperature 96.6 [degF] Kristen Marie [employer]CE[employer] [facility] [place] Work Phone: 02-03-2016 12:57-0400 BP Diastolic 73 mm[Hg] Kristen Marie [employer] [facility] [place] Work Phone: 02-03-2016 12:57-0400 BP Systolic 140 mm[Hg] Kristen Marie [employer] [facility] [place] Work Phone: 02-03-2016 12:57-0400 BSA (Body Surface Area) 1.85 m2 Kristen Marie [employer] [facility] [place] Work Phone: 02-03-2016 12:57-0400 Height 160.02 cm Kristen Marie [employer] [facility] [place] Work Phone: 02-03-2016 12:57-0400 Pulse (Heart Rate) 91 /min Kristen Marie [employer]CE[employer] [facility] [place] Work Phone: 02-03-2016 12:57-0400 Pulse Oximetry 97 % Kristen Marie [employer] [facility] [place] Work Phone: 02-03-2016 12:57-0400 Respiratory Rate 18 /min Kristen Marie [employer]CE[employer] [facility] [place] Work Phone: 02-03-2016 12:57-0400 Weight 81.82 kg Kristen Marie [employer] [facility] [place] Work Phone: 02-03-2016 12:57-0400 Weight 81.65 kg Kristen Marie [employer]CE[employer] [facility] [place] Work Phone: 12-30-2015 14:51-0400 Heart rate 62 /min Kristen Marie [employer] RECE[employer] [facility] [place] Phone: Encounters Encounter Date Encounter Type Care Provider Facility Start: 12-29-2024 ambulatory Cathie De Jesus STUDIO MODEL Fac ility:[facility] Start: 12-19-2024 ambulatory Cathie De Jesus STUDIO MODEL Fac ility:[facility] Start: 11-18-2024 End: 11-18-[address] Naomi Whyte DO Work Phone: -[facility] [place] Start: 11-18-2024 End: 11-18-[address] Naomi Whyte DO -[facility] [place] Work Phone: Start: 11-18-2024 End: 11-18-2024 ambulatory Naomi Whyte Facility:[facility] Start: 11-14-2024 End: 11-14-2024 Patient encounter procedure Cathie MAHERC -[facility] Work Phone: Start: 11-14-2024 End: 11-14-[address] Naomi Whyte DO Work Phone: -[facility] Start: 10-24-2024 ambulatory Mary Villasenor Facility:[facility] Start: 10-24-2024 Non-patient / Non-visit Dr. Mary bose MD -[facility] Start: 10-24-2024 End: 10-24-[address] Naomi Whyte DO Work Phone: -Cardiovascular Services Start: 10-24-2024 End: 10-24-[address] Angel Patel MD -Cardiovascular Services Work Phone: Start: 10-24-2024 End: 10-24-2024 ambulatory Angel Patel Facility:[facility] Start: 10-17-2024 End: 10-17-2024 Patient encounter procedure Cathie MAHERC -[facility] Work Phone: Start: 10-17-2024 End: 10-17-[address] Naomi Whyte DO Work Phone: -[facility] Out Start: 10-17-2024 End: 10-17-2024 ambulatory Naomi Whyte Facility:[facility] Start: 09-10-2024 End: 09-10-2024 Patient encounter procedure Cathie MAHERC -[facility] Work Phone: Start: 09-10-2024 End: 09-10-[address] Naomi Whyte DO Work Phone: [facility] Work Phone: Start: 09-05-2024 ambulatory Naomi Whyte Facility:[facility] Start: 08-08-2024 [facility] Start: 07-04-2024 End: 07-04-2024 Patient encounter procedure Cathie De Jesus STUDIO MODEL-C -[facility] Work Phone: Start: 07-04-2024 End: 07-04-[address] Naomi Whyte DO Work Phone: [facility] Work Phone: Start: 06-03-2024 ambulatory Naomi Whyte Facility:[facility] Start: 04-25-2024 End: 04-25-2024 Patient encounter procedure Catihe De Jesus STUDIO MODEL-C -[facility] Work Phone: Start: 04-25-2024 End: 04-25-2024 ambulatory Naomi Whyte Facility:[facility] Start: 03-21-2024 End: 03-21-2024 Patient encounter procedure Cathie De Jesus STUDIO MODEL-C -[facility] Work Phone: Start: 03-21-2024 End: 03-21-2024 ambulatory Cathie De Jesus NP Facility:[facility] Start: 03-12-2024 End: 03-12-2024 Patient encounter procedure Cathie De Jesus STUDIO MODEL-C -[facility] Work Phone: Start: 03-12-2024 End: 03-12-2024 ambulatory Naomi Whyte Facility:[facility] Start: 02-29-2024 ambulatory Cathie De Jesus STUDIO MODEL Fac ility:[facility] Start: 02-14-2024 End: 02-14-2024 ambulatory Naomi Whyte Facility:[facility] Start: 01-18-2024 End: 01-18-2024 ambulatory Cathie De Jesus NP Facility:[facility] Start: 12-28-2023 End: 12-28-2023 ambulatory Kamilah Patel Facility:[facility] Start: 08-15-2023 End: 08-15-[address] Kamilah Patel Work Phone: [facility] Work Phone: Start: 08-15-2023 End: 08-15-[address] Kamilah Patel Work Phone: [facility]-Medical Out Work Phone: Start: 08-02-2023 End: 08-02-[address] Kamilah Patel Work Phone: [facility] Work Phone: Start: 06-15-2023 End: 06-15-[address] Kamilah Patel Work Phone: [facility] Work Phone: Start: 06-15-2023 End: 06-15-[address] Kamilah Patel Work Phone: [facility] Out Work Phone: Start: 05-18-2023 End: 05-18-[address] Kamilah Patel Work Phone: [facility] Work Phone: Start: 05-18-2023 End: 05-18-[address] Kamilah Patel Work Phone: [facility] Out Work Phone: Start: 05-16-2023 End: 05-16-[address] Kamilah Patel Work Phone: [facility] Work Phone: Start: 04-20-2023 End: 04-20-[address] Kamilah Patel Work Phone: [facility] Work Phone: Start: 04-20-2023 End: 04-20-[address] [facility]il[facility] Pat[facility] Work Phone: Start: 03-26-2023 End: 03-26-[address] Kamilah Patel Work Phone: [facility] Work Phone: Start: 03-26-2023 End: 03-26-[address] Kamilah Patel Work Phone: [facility]-Outpatient Breast Imaging Work Phone: Start: 02-23-2023 End: 02-23-[address] Kamilah Patel Work Phone: [facility] Work Phone: Start: 02-23-2023 End: 02-23-[address] Kamilah Patel Work Phone: [facility] Out Work Phone: Start: 2023 End: [address] Kamilah Patel Work Phone: [facility]-Pulmonary Medicine [facility] Work Phone: Start: 01-26-2023 End: 01-26-2023 ambulatory [facility] Work Phone: Start: 01-26-2023 End: 01-26-2023 Patient encounter procedure [facility] Work Phone: Start: 12-29-2022 End: 12-29-2022 ambulatory [facility] Work Phone: Start: 12-29-2022 End: 12-29-2022 Patient encounter procedure [facility] Work Phone: Start: 12-21-2022 End: 12-21-2022 ambulatory [facility] Work Phone: Start: 12-21-2022 End: 12-21-2022 Patient encounter procedure [facility]-Cat Scan, [facility] Work Phone: Start: 12-15-2022 End: 12-15-2022 Emergency department patient visit [facility]-Emergency Department Work Phone: Start: 12-01-2022 End: 12-01-2022 ambulatory [facility] Work Phone: Start: 12-01-2022 End: 12-01-2022 Patient encounter procedure [facility] Work Phone: Start: 11-02-2022 End: 11-02-2022 Patient encounter procedure [facility] Work Phone: Start: 09-28-2022 End: 09-28-2022 ambulatory Dr. Kamilah Patel Work Phone: [facility] Work Phone: Start: 09-28-2022 End: 09-28-[address] Kamilah Patel Work Phone: [facility]-Medical Out Start: 08-24-2022 End: 08-24-[address] Kamilah Patel Work Phone: [facility]-Medical Out Start: 08-01-2022 End: 08-01-[address] [facility] Start: 07-27-2022 End: 07-27-2022 ambulatory [facility] Work Phone: Start: 07-27-2022 End: 07-27-2022 Patient encounter procedure [facility] Start: 06-22-2022 End: 06-22-2022 ambulatory [facility] Work Phone: Start: 06-22-2022 End: 06-22-2022 Patient encounter procedure [facility] Start: 05-25-2022 End: 05-25-[address] Kamilah Patel Work Phone: [facility] Work Phone: Start: 05-25-2022 End: 05-25-[address] [facility] Start: 04-27-2022 End: 04-27-[address] Kamilah Patel Work Phone: [facility] Out Start: 03-21-2022 End: 03-21-[address] Kamilah Patel Work Phone: [facility] Work Phone: Start: 03-21-2022 End: 03-21-[address] Kamilah Patel Work Phone: [facility]Medical Out Start: 02-09-2022 End: 02-09-[address] Kamilah Patel Work Phone: [facility] Work Phone: Start: 02-09-2022 End: 02-09-[address] Kamilah Patel Work Phone: [facility]-Sleep Lab Start: 02-08-2022 End: 02-08-[address] Kamilah Patel Work Phone: [facility] Work Phone: Start: 02-08-2022 End: 02-08-[address] Kamilah Patel Work Phone: [facility]-Laboratory, Specimen Start: 02-08-2022 End: 02-08-[address] Kamilah Patel Work Phone: [facility] Start: 01-30-2022 End: 01-30-[address] Kamilah Patel Work Phone: [facility]-Pulmonary Medicine [facility] Start: 01-24-2022 End: 01-24-[address] Kamilah Patel Work Phone: [facility] Work Phone: Start: 01-24-2022 End: 01-24-[address] Kamilah Patel Work Phone: [facility]-Medical Out Start: 12-27-2021 End: 12-27-[address] Kamilah Patel Work Phone: [facility]-Medical Out Start: 12-19-2021 End: 12-19-[address] Kamilah Patel Work Phone: [facility], [facility] Start: 12-15-2021 End: 12-15-[address] Kamilah Patel Work Phone: [facility] Work Phone: Start: 12-15-2021 End: 12-15-[address] Kamilah Patel Work Phone: [facility] Start: 11-23-2021 End: 11-23-[address] Kamil[facility] Start: 11-10-2021 End: 11-10-[address] Kamilah Patel Work Phone: [facility], [facility] Start: 11-09-2021 End: 11-09-[address] Kamilah Patel Work Phone: [facility] Start: 10-21-2021 End: 10-21-[address] Kamilah Patel Work Phone: [facility]Medical Out Start: 09-02-2021 End: 09-02-[address] Kamilah Patel Work Phone: [facility]Medical Out Start: 08-05-2021 End: 08-05-[address] Kamilah Patel Work Phone: [facility]Medical Out Start: 07-07-2021 End: 07-07-[address] Kamilah Patel Work [facility] Start: 06-28-2021 End: 06-28-[address] Kamilah Patel Work Phone: [facility]-Cat Scan, [facility] Start: 05-20-2021 End: 05-20-[address] Kamil[facility] Patel [facility] Start: 04-18-2021 End: 04-18-[address] Kamilah Patel Work Phone: [facility] Start: 04-06-2021 End: 04-06-[address] Kamilah Patel Work Phone: [facility] Start: 04-04-2021 End: 04-04-2021 Emergency department patient visit Dr. Kamilah Patel [facility] Start: 03-11-[address] Kamilah Patel Work [facility] Date Procedure Procedure Detail Performing Clinician Start: 11-18-2024 X-ray of chest, PA a nd lateral views Dr. Naomi Whyte DO Work Phone: Start: 10-24-2024 Cardiovascular stres s test using pharmacologic stress agent Dr. Naomi Whyte DO Work Phone: Start: 03-26-2023 Screening mammography Brigitte Patel Work Phone: Start: 12-21-2022 CT of chest Start: 12-15-2022 Viral antigen assay Start: 12-15-2022 Plain chest X-ray Start: 12-19-2021 CT of chest without contrast Dr. Kamilah Patel Work Phone: Start: 06-28-2021 CT of chest without contrast Dr. Kamilah Patel Work Phone: Start: 11-09-2016 End: 11-09-2016 Urinalysis Mariel Coronado FERMENTING CELLARS RECEIVER Start: 11-09-2016 End: 11-09-2016 Urnls dip stick/tablet rgnt non-auto w/o micrscp Catracho Clifton PA Work Phone: Start: 09-20-2016 End: 09-20-2016 Dietary management education, guidance, and counseling Brisa Ball FERMENTING CELLARS RECEIVER Start: 02-03-2016 End: 02-03-2016 Dietary management education, guidance, and counseling Kristen Marie FERMENTING CELLARS RECEIVER Start: 02-03-2016 End: 03-13-2016 DMB Cathie Esquivel STUDIO MODEL Work Phone: Start: 02-03-2016 End: 03-13-2016 Follow Up Appt 6 months Cathie acuna PANELBOARD OPERATOR Work Phone: Start: 02-03-2016 End: 02-04-2016 Referral to neurologist Cathie acuna PANELBOARD OPERATOR Work Phone: Start: 01-03-2016 End: 03-13-2016 CSM Cathie Esquivel STUDIO MODEL Work Phone: Start: 01-03-2016 End: 03-13-2016 Follow Up Appt 1 month Cathie sawant PANELBOARD OPERATOR Work Phone: Start: 12-30-2015 End: 02-08-2016 Arterial exam Khai Birmingham MD Start: 12-30-2015 End: 02-08-2016 Echocardiography Khai Birmingham MD Start: 12-30-2015 End: 12-30-2015 Electrocardiogram, complete Khai mariscal MD Start: 12-30-2015 End: 12-30-2015 Follow Up Appt 6 weeks Khai Birmingham MD Start: 12-30-2015 End: 12-30-2015 MMM Khai Birmingham MD Start: 12-30-2015 End: 02-08-2016 Nuclear stress test -Anselmo denson MD Start: 12-30-2015 End: 03-13-2016 Titration [...] Date Care Activity Detail Author Start: 12-15-2022 [facility] Start: 08-01-2022 Patient referral [facility] Work Phone: Start: 03-19-2017 End: 03-19-2017 Appointment Appointment [facility] Work Phone: Start: 11-09-2016 End: 11-09-2016 Appointment Appointment [facility] Work Phone: Start: 10-09-2016 End: 10-09-2016 Appointment Appointment [facility] Work Phone: Start: 09-20-2016 End: 09-20-2016 Appointment Appointment [facility] Work Phone: Start: 09-20-2016 End: 09-20-2016 CSM [facility] Work Phone: Start: 09-20-2016 End: 09-20-2016 Follow Up Appt 6 months Follow Up Appt 6 months [facility] Work Phone: Start: 02-03-2016 End: 03-13-2016 DMB DMB [facility] Work Phone: Start: 02-03-2016 End: 03-13-2016 Follow Up Appt 6 months Follow Up Appt 6 months [facility] Work Phone: Start: 02-03-2016 End: 03-13-2016 Neurology Referral Neurology Referral [facility] Work Phone: Start: 01-25-2016 End: 01-25-2016 Vascular Surgery Vascular Surgery Janak Crawley MD, [address] [facility] [address], [place], [address] [facility] Work Phone: Start: 01-03-2016 End: 03-13-2016 [facility] Work Phone: Start: 01-03-2016 End: 03-13-2016 Follow Up Appt 1 month Follow Up Appt 1 month [facility] Phone: Start: 12-30-2015 End: 12-30-2015 Arterial exam Arterial exam [facility] Work Phone: Start: 12-30-2015 End: 12-30-2015 Echocardiography Echocardiogram (complete) [facility] Work Phone: Start: 12-30-2015 End: 12-30-2015 Electrocardiogram, complete EKG (In office) [facility] Phone: Start: 12-30-2015 End: 12-30-2015 Follow Up Appt 6 weeks Follow Up Appt 6 weeks [facility] Phone: Start: 12-30-2015 End: 12-30-2015 Follow Up Appt Other Follow Up Appt Other [facility] Work Phone: Start: 12-30-2015 End: 12-30-2015 MMM MMM [facility] Work Phone: Start: 12-30-2015 End: 12-30-2015 Nuclear stress test -Lexiscan Nuclear stress test -Lexiscan [facility] Work Phone: Start: 12-30-2015 End: 03-13-2016 Titration with Follow up (pt not on cpap) Titration with Follow up (pt not on cpap) [facility] Phone: Start: 12-02-2015 End: 12-30-2015 Complete sleep workup (PSG,CPAP as indicated) & Follow up Complete sleep workup (PSG,CPAP as indicated) & Follow up [facility] Phone: Start: 12-02-2015 End: 12-02-2015 [facility] Phone: Start: 12-02-2015 End: 12-02-2015 Follow Up Appt 1 month Follow Up Appt 1 month [facility] Phone: Start: 12-02-2015 End: 12-02-2015 Pulmonary Function Test - complete Pulmonary Function Test - complete [facility] Phone: Start: 12-02-2015 End: 12-30-2015 Pulmonary stress test/simple Pulmonary stress testing; simple (eg, 6-minute walk) [facility] Phone: Blood chemistry [facility] Brain natriuretic pe ptide measurement [facility] CT Chest [facility] CT Chest [facility] CT Chest [facility] Patient Education [facility] Now in Work Phone: Patient referral [facility] Work Phone: XR Chest PA and Lateral [facility] Immunizations Immunization Date Immunization Notes Care Provider Fa paresh 11-22-2015 diphtheria, tetanus toxoids and acellular pertussis vaccine, unspecified formulation; Translations: [[id number] PERTUSSIS] Kristen Marie LPN [facility] [employer] Phone: 11-22-2015 pneumococcal vaccine , unspecified formulation; Translations: [PNEUMOCOCCAL 13-FAVIAN CONJ VACC] Kristen Marie LPN [facility] [employer] Phone: 11-22-2015 varicella zoster imm une globulin; Translations: [ZOSTER VACCINE LIVE] Kristen Marie LPN [facility] Work Phone: Payers Date Payer Category Payer Self-pay [id number] 2023 Medicare [id number] 2023 Unknown [id number] Medicaid [id number] Unknown [id number] Unknown [id number] Unknown [id number] 2.16.8 [id number] Unknown [id number] 2.16.8 40.1.886780.3.579.2.462 Unknown [id number] 2.16.8 40.1.333363.3.579.2.462 Unknown [id number] 2.16.8 40.1.573888.3.579.2.462 Unknown [id number] 2.16.8 40.1.647691.3.579.2.462 Unknown [id number] 2.16.8 40.1.796585.3.579.2.462 Unknown [id number] 2.16.8 40.1.391651.3.579.2.462 Unknown [id number] 2.16.8 40.1.890900.3.579.2.462 Unknown [id number] 2.16.8 40.1.767715.3.579.2.462 Unknown [id number] 2.16.8 40.1.904282.3.579.2.462 Unknown [id number] 2.16.8 40.1.084965.3.579.2.462 Unknown [id number] 2.16.8 40.1.019021.3.579.2.462 Unknown [id number] 2.16.8 40.1.590737.3.579.2.462 Unknown [id number] 2.16.8 40.1.305510.3.579.2.462 Unknown [id number] 2.16.8 40.1.527891.3.579.2.462 Unknown [id number] 2.16.8 40.1.248093.3.579.2.462 Unknown [id number] 2.16.8 40.1.554094.3.579.2.462 Unknown [id number] 2.16.8 40.1.198981.3.579.2.462 Unknown [id number] 2.16.8 40.1.372939.3.579.2.462 Unknown [id number] 2.16.8 40.1.525489.3.579.2.462 Unknown [id number] 2.16.8 40.1.502767.3.579.2.462 Unknown [id number] 2.16.8 40.1.935582.3.579.2.462 Social History Date Type Detail Facility Start: 07-07-2021 End: 08-02-2023 Tobacco smoking status NVIS Unknown if ever smoked [facility] Start: 1955 Sex Assigned At Female [facility] Start: 08-02-2023 Tobacco smoking stat us NVIS Ex-smoker (finding) [facility] Start: 07-05-2024 Sex Female (finding) [facility] Mental Status Date Assessment Result Facility 11-14-2024 Cognitive function Voice/Name [facility] Work Phone: 10-17-2024 Cognitive function Awake;Alert;A ppropriate;Follo ws Commands [facility] Work Phone: 09-10-2024 Cognitive function Voice/Name [facility] Work Phone: 07-04-2024 Cognitive function Awake;Alert;A ppropriate;Follo [facility] Work Phone: 03-21-2024 Cognitive function Awake;Alert;A ppropriate;Follo [facility] Work Phone: 08-15-2023 Cognitive function Awake;Alert;A ppropriate;Follo [facility] Work Phone: 06-15-2023 Cognitive function Voice/Name [facility] Work Phone: 04-20-2023 Cognitive function Voice/Name [facility] Work Phone: 02-23-2023 Cognitive function Awake;Alert;A ppropriate;[facility] Work Phone: 01-26-2023 Cognitive function Voice/Name [facility] Work Phone: 12-29-2022 Cognitive function Awake;Alert;A ppropriate;[facility] Work Phone: 12-01-2022 Cognitive function Awake;Alert;A ppropriate;[facility] Work Phone: 11-02-2022 Cognitive function Voice/Name [facility] Work Phone: 09-28-2022 Cognitive function Awake;Alert;A ppropriate;Follo [facility] Work Phone: 08-24-2022 Cognitive function Voice/Name [facility] Work Phone: 07-27-2022 Cognitive function Awake;Alert;A ppropriate;[facility] Work Phone: 06-22-2022 Cognitive function Level Of Cons ciousness Awake;Alert;Appropriate;Follo [facility] Work Phone: 02-16-2023 Cognitive function Voice/Name [facility] Work Phone: 04-27-2022 Cognitive function Voice/Name [facility] Work Phone: 03-21-2022 Cognitive function Level Of Cons ciousness Awake;Alert;Appropriate;Follo [facility] Work Phone: 01-24-2022 Cognitive function Voice/Name [facility] Work Phone: 12-27-2021 Cognitive function Level Of Cons ciousness Awake;Alert;Appropriate;Follo ws [facility] Work Phone: 11-23-2021 Cognitive function Voice/Name [facility] Work Phone: 10-21-2021 Cognitive function Level Of Cons ciousness Awake;Alert;Appropriate;Follo [facility] Work Phone: 09-02-2021 Cognitive function Awake;Alert;A ppropriate;Follo [facility] Work Phone: 08-05-2021 Cognitive function Voice/Name [facility] Work Phone: 05-20-2021 Cognitive function Awake;Alert;A ppropriate;[facility] Work Phone: 03-11-2021 Cognitive function Voice/Name [facility] Work Phone: Clinical Notes 12-15-2022 to 11-18-2024 Note Date & Type Note Facility 11-18-2024 Radiology Diagnostic study note [facility] Imaging Services [address], [place] [address] Chest PA and Lateral MR#: [id number] Acct: [id number] Name: TARSHA GONZALEZ DOMINGA Rep #: [id number] : 1955 F 69 From: Albina Bowman MD PCP: Dr. Naomi Whyte, DO Status: REG CLI Study:Chest PA and Lateral Date of Exam: 11/18/24 Exam# [id number] Ordering Dr: Ai Whyte sa, DO PROCEDURE: CHEST PA AND LATERAL 11/18/2024 REASON FOR EXAM: COUGH TECHNIQUE: CHEST PA AND LATERAL COMPARISON: Chest x-ray 12/15/2022 FINDINGS: Heart: The heart size is normal.. Atherosclerotic calcification of aortic arch. Mediastinum: The mediastinal contour is unremarkable. Lungs: Bibasilar atelectasis. No focal consolidation. Bones: Degenerative changes of bilateral shoulder joints and visualized thoracicspine. RAD/Chest PA and Lateral IMPRESSION: No acute cardiopulmonary abnormalities. Reading Location: [id number] CC: Dr. Naomi Whyte DO ~ It Programmer Analyst: Signed [facility] 09-10-2024 Evaluation note Diagnosis Onset Date Resolution Asthma-COPD overlap syndrome chronic September 10, 2024 1 :33pm Tobacco abuse, in remission chronic September 10, 2024 1 :33pm [facility] Work Phone: 1(215) 290-155906-04-2025 Evaluation note* Diagnosis Onset Date Resolution Status Admit Date Asthma-COPD overlap syndrome chronic September 10, 2024 1:33pm PHILIP (obstructive sleep apnea) chroni c September 10, 2024 1:33pm Tobacco abuse, in remission chronic September 10, 2024 1:33pm [facility] Work Phone: 1(303) 782-560112-04-2024 Evaluation note* Diagnosis Onset Date Resolution Status Admit Date Asthma-COPD overlap syndrome chronic March 12, 2024 12:29pm PHILIP (obstructive sleep apnea) chronic March 12 12:29pm Tobacco abuse, in remission chronic March 12, 2024 12:29pm [facility] Work Phone: 1(130) 278-904309-08-2023 Discharge summary Author Jagdish Day [facility] December 15, 2022 9:50am Note Date/Time December 15, 2022 7:33am [facility] Medical Records Department [address] [place] [address] Emergency Department Summary 12/15/22 MR#: [id number] Acct: [id number] Name: TARSHA GONZALEZ Rep #:[id number] : [...] PFSH Medical History Atherosclerotic heart disease of [place] coronary artery without angina pectoris Cardiac murmur, [...] (Auto) 46.2 L Lymph % (Auto) 40.1 [place] % (Auto) 11.0 H Eos % (Auto) [...] rhythm rate 87 no acute signs of ND. Discharge Plan Triage Chief Complaint: Shortness of [...] your Primary Care Provider. Call [facility] ([phone]) or report to the closest Emergency Room. Call 911 if necessary. 12/15/22 0950 <Electronically signed by Jagdish Day MD> Cosigner Signature (if applicable): CC: Dr. Kamilah Patel MD ~ Signed [facility] Work Phone: evaluation note* Diagnosis Onset Date Resolution Status COVID-19 acute Acute pharyngitis acute Asthma-COPD overlap syndrome chronic Lung nodule chronic PHILIP (obstructive sleep apnea) [facility] Work Phone: Evaluation note* Diagnosis Onset Date Resolution Status Acute pharyngitis acute Asthma-COPD overlap syndrome chronic Lung nodule chronic PHILIP (obstructive sleep apnea) [facility] Work Phone: Evaluation note* Diagnosis Onset Date Resolution Status Asthma-COPD overlap syndrome chronic Lung nodule chronic PHILIP (obstructive sleep apnea) [facility] Work Phone: Evaluation note* Diagnosis Onset Date Resolution Status Urinary tract infection with hematuria acute [facility] Work Phone: Evaluation note* Diagnosis Onset Date Resolution Status Urinary tract infection with hematuria acute Asthma-COPD overlap syndrome chronic PHILIP (obstructive sleep apnea) chronic Tobacco abuse, in remission chronic Urinary tract infection with hematuria acute [facility] Work Phone: Evaluation note* Diagnosis Onset Date Resolution Status Asthma-COPD overlap syndrome chronic PHILIP (obstructive sleep apnea) chronic Tobacco abuse, in remission chronic Urinary tract infection with hematuria acute [facility] Work Phone: Evaluation noteNo assessment information available [facility] Work Phone: Evaluation note* Diagnosis Onset Date Resolution Status Asthma-COPD overlap syndrome chronic PHILIP (obstructive sleep apnea) chronic Tobacco abuse, in remission chronic [facility] Work Phone: Evaluation note* Diagnosis Onset Date Resolution Status Asthma-COPD overlap syndrome chronic PHILIP (obstructive sleep apnea) chronic Tobacco abuse, in remission chronic Shortness of breath acute Wheezing acute [facility] Work Phone: Evaluation note* Diagnosis Onset Date Resolution Status Shortness of breath acute Wheezing acute [facility] Work Phone: Evaluation note* Diagnosis Onset Date Resolution Status Shortness of breath acute Wheezing acute Asthma-COPD overlap syndrome chronic Tobacco abuse, in remission chronic [facility] Work Phone: Hospital Discharge instructions Additional Instructions Plenty of fluids and rest. Your nebulizer at home as needed for wheezing and shortness of breath. Prednisone 40 mg a day for the next 5 days starting tomorrow. Follow-up if not improving or return if worse.[facility] Work Phone: Reason for referral (narrative)No reason for referral information availableWW[facility] Work Phone: Chief Complaint and Reason [...] m NUCALA October 17, 2024 1:14 pm Chief Complaint Admit Date NUCALA July 04, 2024 11: 29am 6 M FU September 10, 2024 1:33p m NUCALA September 10, 2024 2:23p m NUCALA October 17, 2024 1:14 pm DYSPNEA October 24, 2024 6:52 am DYSPNEA October 24, 2024 9:43 am Chief Complaint Admit Date 6 M FU September 10, 2024 1:33p m NUCALA September 10, 2024 2:23p m NUCALA October 17, 2024 1:14 pm DYSPNEA October 24, 2024 6:52 am DYSPNEA October 24, 2024 9:43 am NUCALA November 14, 2024 12: 53pm Family History No Family History Records Found [...] Will No April 05, 12:02am Power of Mental Tester No April 05, 2021 12:02am Advance Directive Response Recorded Date/ Time Living Will No April 04 021 11:02pm Power of Mental Tester No April 04, 2021 11:02pm Advance Directive Response Recorded Date/ Time Living Will No December 15 023 7:23am Power of Mental Tester No December 15, 2022 7:23am Advance Directive Response Recorded Date/ Time Living Will No December 15 023 6:23am Power of Mental Tester No December 15, 2022 6:23am Advance Directive Response Recorded Date/ Time Living Will No December 15 7:23am Do you have a Healthcare Power of Mental Tester? No December 15, 2022 7:23am Summary Purpose [...] Primary Care Provider Active Cathie De Jesus STUDIO MODEL, STUDIO MODEL-C Attending Provider, Referrin g Provider Active Team Status: Inactive Member Role Status Dates Dr. Kamilah Patel MD Primary Care Provider, Referrin g Provider Active Cathie De Jesus STUDIO MODEL, STUDIO MODEL-C Attending Provider Active Team Status: Inactive Member [...] End: March 12, 2024 Cathie De Jesus STUDIO MODEL, STUDIO MODEL-C Attending Provider Active Start: March 12, 2024 End: March 12, 2024 Team Status: Inactive Member Role Status Dates Dr. Naomi Whyte DO Primary Care Provider Active Start: March 21, 2024 End: March 21, 2024 Cathie De Jesus STUDIO MODEL, STUDIO MODEL-C Attending Provider Active Start: March 21, 2024 End: March 21, 2024 Cathie De Jesus STUDIO MODEL, STUDIO MODEL-C Referring Provider Active Start: March 21, 2024 End: March 21, 2024 Team Status: Inactive Member Role Status Dates Dr. Naomi Whyte DO Primary Care Provider Active Start: April 25, 2024 End: April 25, 2024 Cathie De Jesus STUDIO MODEL, STUDIO MODEL-C Attending Provider Active Start: April 25, 2024 End: April 25, 2024 Cathie De Jesus STUDIO MODEL, STUDIO MODEL-C Referring Provider Active Start: April 25, 2024 End: April 25, 2024 Team Status: Inactive Member Role Status Dates Dr. Naomi Whyte DO Primary Care Provider Active Start: July 04, 2024 End: July 04, 2024 Cathie De Jesus STUDIO MODEL, STUDIO MODEL-C Attending Provider Active Start: July 04, 2024 End: July 04, 2024 Cathie De Jesus STUDIO MODEL, STUDIO MODEL-C Referring Provider Active Start: July 04, 2024 End: July 04, 2024 Team Status: Inactive Member Role Status Dates Dr. Naomi Whyte DO Primary Care Provider Active Start: September 10, 2024 End: September 10, 2024 Dr. Naomi Whyte DO Referring Provider Active St art: September 10, 2024 End: September 10, 2024 Cathie De Jesus STUDIO MODEL, STUDIO MODEL-C Attending Provider Active Start: September 10, 2024 End: September 10, 2024 Team Status: Active Member Role Status Dates Dr. Naomi Whyte DO Primary Care Provider Active Start: September 10, 2024 Cathie De Jesus STUDIO MODEL, STUDIO MODEL-C Attending Provider Active Start: September 10, 2024 Cathie De Jesus STUDIO MODEL, STUDIO MODEL-C Referring Provider Active Start: September 10, 2024 Team Status: Inactive Member Role Status Dates Dr. Naomi Whyte DO Primary Care Provider Active Start: September 10, 2024 End: September 10, 2024 Cathie De Jesus STUDIO MODEL, STUDIO MODEL-C Attending Provider Active Start: September 10, 2024 End: September 10, 2024 Cathie De Jesus STUDIO MODEL, STUDIO MODEL-C Referring Provider Active Start: September 10, 2024 End: September 10, 2024 Team Status: Active Member Role/Relationship Status Dates Dr. Naomi Whyte DO Primary Care Provider Active Team Status: Inactive Member Role/Relationship Status Dates Dr. Naomi Whyte DO Primary Care Provider Active Start: July 04, 2024 End: July 04, 2024 Cathie De Jesus STUDIO MODEL, STUDIO MODEL-C Attending Provider Active Start: July 04, 2024 End: July 04, 2024 Cathie De Jesus STUDIO MODEL, STUDIO MODEL-C Referring Provider Active Start: July 04, 2024 End: July 04, 2024 Team Status: Inactive Member Role/Relationship Status Dates Dr. Naomi Whyte DO Primary Care Provider Active Start: September 10, 2024 End: September 10, 2024 Dr. Naomi Whyte DO Referring Provider Active St art: September 10, 2024 End: September 10, 2024 Cathie De Jesus STUDIO MODEL, STUDIO MODEL-C Attending Provider Active Start: September 10, 2024 End: September 10, 2024 Team Status: Inactive Member Role/Relationship Status Dates Dr. Naomi Whyte DO Primary Care Provider Active Start: September 10, 2024 End: September 10, 2024 Cathie De Jesus STUDIO MODEL, STUDIO MODEL-C Attending Provider Active Start: September 10, 2024 End: September 10, 2024 Cathie De Jesus STUDIO MODEL, STUDIO MODEL-C Referring Provider Active Start: September 10, 2024 End: September 10, 2024 Team Status: Inactive Member Role/Relationship Status Dates Dr. Naomi Whyte DO Primary Care Provider Active Start: October 17, 2024 End: October 17, 2024 Cathie De Jesus STUDIO MODEL, STUDIO MODEL-C Attending Provider Active Start: October 17, 2024 End: October 17, 2024 Cathie De Jesus STUDIO MODEL, STUDIO MODEL-C Referring Provider Active Start: October 17, 2024 [...] 2024 End: October 17, 2024 Team Status: Inactive Member Role/Relationship Status Dates Dr. Naomi Whyte DO Primary Care Provider Active Start: October 24, 2024 End: October 24, 2024 Dr. Angel Patel MD Attending Provider Active Start: October 24, 2024 End: October 24, 2024 Dr. Angel Patel MD Referring Provider Active Start: October 24, 2024 End: October 24, 2024 Team Status: Active Member Role/Relationship Status Dates Dr. Naomi Whyte DO Primary Care Provider Active Start: October 24, 2024 Dr. Angel Patel MD Referring Provider Active Start: October 24, 2024 Dr. Angel Patel MD Other Provider Active St art: October 24, 2024 Dr. Mary Villasenor MD Attending Provider Active Start: October 24, 2024 Team Status: Inactive Member Role/Relationship Status Dates Dr. Naomi Whyte DO Primary Care Provider Active Start: September 10, 2024 End: September 10, 2024 Dr. Naomi Whyte DO Referring Provider Active St art: September 10, 2024 End: September 10, 2024 Cathie De Jesus STUDIO MODEL, STUDIO MODEL-C Attending Provider Active Start: September 10, 2024 End: September 10, 2024 Team Status: Inactive Member Role/Relationship Status Dates Dr. Naomi Whyte DO Primary Care Provider Active Start: September 10, 2024 End: September 10, 2024 Cathie De Jesus STUDIO MODEL, STUDIO MODEL-C Attending Provider Active Start: September 10, 2024 End: September 10, 2024 Cathie De Jesus STUDIO MODEL, STUDIO MODEL-C Referring Provider Active Start: September 10, 2024 End: September 10, 2024 Team Status: Inactive Member Role/Relationship Status Dates Dr. Naomi Whyte DO Primary Care Provider Active Start: October 17, 2024 End: October 17, 2024 Cathie De Jesus STUDIO MODEL, STUDIO MODEL-C Attending Provider Active Start: October 17, 2024 End: October 17, 2024 Cathie De Jesus STUDIO MODEL, STUDIO MODEL-C Referring Provider Active Start: October 17, 2024 End: October 17, 2024 Team Status: Inactive Member Role/Relationship Status Dates Dr. Naomi Whyte DO Primary Care Provider Active Start: October 17, 2024 End: October 17, 2024 Dr. Naomi Whyte DO Attending Provider Active St art: October 17, 2024 End: October 17, 2024 Team Status: Inactive Member Role/Relationship Status Dates Dr. Naomi Whyte DO Primary Care Provider Active Start: October 24, 2024 End: October 24, 2024 Dr. Angel Patel MD Attending Provider Active Start: October 24, 2024 End: October 24, 2024 Dr. Angel Patel MD Referring Provider Active Start: October 24, 2024 End: October 24, 2024 Team Status: Active Member Role/Relationship Status Dates Dr. Naomi Whyte DO Primary Care Provider Active Start: October 24, 2024 Dr. Angel Patel MD Referring Provider Active Start: October 24, 2024 Dr. Angel Patel MD Other Provider Active St art: October 24, 2024 Dr. Mary Villasenor MD Attending Provider Active Start: October 24, 2024 Team Status: Inactive Member Role/Relationship Status Dates Dr. Naomi Whyte DO Primary Care Provider Active Start: November 14, 2024 End: November 14, 2024 Cathie De Jesus STUDIO MODEL, STUDIO MODEL-C Attending Provider Active Start: November 14, 2024 End: November 14, 2024 Cathie De Jesus STUDIO MODEL, STUDIO MODEL-C Referring Provider Active Start: November 14, 2024 End: November 14, 2024 Team Status: Inactive Member Role/Relationship Status Dates Dr. Naomi Whyte DO Primary Care Provider Active Start: November 18, 2024 End: November 18, 2024 Dr. Naomi Whyte DO Attending Provider Active St art: November 18, 2024 End: November 18, 2024 Dr. Naomi Whyte DO Referring Provider Active St art: November 18, 2024 End: November 18, 2024 INFORMATION SOURCE (unrecogn ized section and content) DATE CREATED AUTHOR 12/24/2024 [facility] FOR RECORDS PERTAINING TO PATIENTS WHO ARE [...] BE BASED ON THE PRIMARY CLINICAL RECORDS. [facility]. provides no warranty or guarantee of the accuracy or completeness of information in this document.
[2024-12-24 22:15] VITALS: BP 143/70; PULSE 100; RESP 16; O2SAT 95
--- NOTE | 2024-12-24 22:46 | RAD_ITS ---
PROCEDURE: CHEST PA AND LATERAL 12/24/2024 REASON FOR EXAM: COUGH, SCATTERED WHEEZING, HISTORY OF COPD TECHNIQUE: Procedure Code: RADCXR Modality: DX Procedure: CHEST PA AND LATERAL COMPARISON: 11/18/2024 FINDINGS: Lungs/Pleura: No focal airspace consolidation. Diffuse bilateral interstitial reticular emphysematous lung changes. No pneumothorax or sizable pleural effusion. Heart/Mediastinum: Within normal limits. Aortic atherosclerotic calcification. Bones/Soft tissues: Mild multilevel degenerative changes of the spine. RAD/Chest PA and Lateral IMPRESSION: Interstitial emphysematous lung changes. No focal consolidation. Reading Location: [facility]
[2024-12-24 22:51] LABS: Hematocrit 39.3 % (37-47); Hemoglobin 13.1 g/dL (12.0-15.0); Immature Granulocytes Count 0.040 X10^3/uL (0.0-0.0); Mean Corp Hgb Conc 33.3 g/dL (32-36); Mean Corpuscular Volume 87.7 fL (81-99); Mean Platelet Vol. 9.1 fl (6.2-12.0); NRBC Flagged by Analyzer 0 % (0-5); Platelet Count 342 K/mm3 (150-450); RBC Distribution Width CV 13.2 % (11.6-14.6); RBC Distribution Width SD 42.1 fl (35.1-43.9); Red Blood Count 4.48 M/mm3 (4.2-5.4); White Blood Count 6.6 K/mm3 (4.4-11.0)
[2024-12-24 23:01] VITALS: PULSE 82; RESP 16
[2024-12-24] MEDS: Albuterol 2.5 MG/3 ML VIAL.NEB. INHALATION (23:10)
--- NOTE | 2024-12-24 23:13 | CPS ---
Patient declined Duoneb X2
[2024-12-24 23:17] VITALS: BP 126/72; PULSE 81; RESP 12; O2SAT 95
[2024-12-24 23:19] LABS: Anion Gap 14 (5-15); BUN 5 mg/dL (4-19); BUN/Creat Ratio 5.7 RATIO (10-20); Calcium,Total 9.2 mg/dL (7.6-11.0); Carbon Dioxide 17.4 mmol/L (21.0-32.0); Chloride 108 mmol/L (98-108); Estimated Creatinine Clearance 70.10 ml/min (50-250); Glucose 96 mg/dL (70-99); Potassium 3.9 mmol/L (3.3-5.1)
--- NOTE | 2024-12-24 23:23 | EDS_ITS ---
HPI History of Present Illness Chief Complaint: Shortness of Breath Detail of Chief Complaint: Increase shortness of breath, cough, wheezing and tightness in chest with d Informant: patient Onset/Context/Timing Onset: Days Context: gradual Timing: Continuous and Waxes and wanes Quality: Positive for Dyspnea on exertion and Wheezing; Negative for Orthopnea or PND Current Severity: Mild Maximum Severity: Moderate Worsened by: Coughing Relieved by: Nothing Associated Symptoms cough; Negative for rhinorrhea, post nasal drip, ear pain, fever, sore throat, subjective, chills, sweats, clear sputum, white sputum, yellow sputum or green sputum Chest Pain: Positive for Intermittent and Pleuritic Narrative Narrative: Patient is a 69-year-old female. She has history of dyspnea, hyperlipidemia, glaucoma, macro degenerative disease of both eyes, COPD, bronchiectasis, obstructive sleep apnea and tobacco use. She smoked up to 1+ packs per day 5 years ago. She denies history of VTE. She has no risk factors for VTE. She denies leg pain, swelling discoloration. Patient has pleuritic pain with coughing. She denies hemoptysis. Her cough is essentially nonproductive. She is presently on prednisone 10 mg. She denies rhinorrhea, congestion postnasal drainage. Denies ear pain or ear discharge. She denies abdominal pain, nausea, vomiting or diarrhea. She denies urologic symptoms. She denies orthopnea. She denies PND. PE Risk Factors: Negative for Cancer, OCP + Smoking + > 35, Prior DVT or PE, Recent immobilization, Recent surgery (Eye surgery several months ago.) or Recent travel (Drove to [place] greater than month ago) Prior similar symptoms: Yes Recent Illness/Hospitalization: No PFSH PFSH Medical History Glaucoma Macular degeneration of both eyes Social anxiety disorder Sense of smell altered Urinary tract infection with hematuria COVID-19 COPD (chronic obstructive pulmonary disease) TORREZ (dyspnea on exertion) PHILIP (obstructive sleep apnea) Nicotine dependence in remission Obesity Atherosclerotic heart disease of [place] coronary artery without angina pectoris Cardiac murmur, unspecified Chest pain, unspecified Hyperlipidemia Peripheral vascular disease Central sleep apnea UTI (urinary tract infection) Urinary frequency Home Medications ?Medication ?Instructions ?Recorded ?Last Taken ?Type clopidogrel 75 mg tablet 75 mg PO DAILY 10/23/15 02/0 1/19 History spacer #1 ea 07/29/19 Unknown Rx Disability Placard #1 ea 01/04/21 Unknown Rx estradiol 0.025 mg/24 hr weekly 1 patch transdermal QW [place] 04/20/23 Unknown History transdermal patch fluticasone fur. 100 mcg-umeclid 1 inh inhalation RENNY Y 04/20/23 Unknown History 62.5 mcg-vilant 25 mcg inhalat.powder (Trelegy Ellipta) mepolizumab 100 mg/mL subcutaneous 100 mg subcut Q4W 1 Unknown History auto-injector (Nucala) albuterol sulfate 90 mcg/actuation 2 puff inhalation Q 4H PRN 09/10/24 Unknown Rx aerosol inhaler shortness of breath or wheez ing #8.5 grams latanoprost 0.005 % eye drops 1 drp ophthalmic (eye) Q HS 09/10/24 Unknown History lorazepam 1 mg tablet 1 mg PO BID PRN anxiety 08/01 Unknown History prednisone 10 mg tablet 10 mg PO QDAY #90 tabs 09/10 Unknown Rx albuterol sulfate 2.5 mg/3 mL 2.5 mg (3 mL) inhalation Q4H PRN 11/06/24 Unknown Rx (0.083 %) solution for nebulization #120 vials prednisone 20 mg tablet 60 mg (3 x 20 mg) PO DAILY # 15 12/24/24 Unknown Rx TABLETS Allergy/AdvReac Type Severity Reaction Status Date / Time codeine Allergy Itching Verified 12/24/24 21:05 morphine Allergy Itching Verified 12/24/24 21:05 doxycycline AdvReac Severe severe Verified 12/24/24 21:05 headaches and muscle spasms to the chest Family History Mother Cancer lung and cervical Father Emphysema Chronic Bronchitis, in 80s. Sister Diabetes CAD (coronary artery disease) Sister Heart disease Brother Respiratory abnormalities Colon cancer Surgical History History of cardiac catheterization H/O oophorectomy History of tonsillectomy H/O: hysterectomy S/P surgical manipulation of ankle joint Social History Smoking Status: Former smoker pack-years: 80 Tobacco: How many years used: 40 how long ago did patient quit smoking: about 8 years ago second hand exposure: No alcohol intake: never substance use type: does not use what type of physical activity do you participate in: none ROS ROS ED Constitutional Constitutional ED: Denies chills, fever(s) or sweats Eyes Eyes: Denies blurry vision or change in vision ENT ENT ED: Denies ear pain, rhinorrhea or sore throat Cardiovascular Cardiovascular: Reports chest pain; Denies orthopnea, palpitations, paroxysmal nocturnal dyspnea or racing heartbeat Respiratory/Chest Respiratory/Chest: Reports cough, dyspnea and dyspnea on exertion; Denies orthopnea, paroxysmal nocturnal dyspnea or sputum Gastrointestinal Gastrointestinal: Denies abdominal pain, diarrhea, nausea or vomiting Genitourinary Genitourinary ED: Denies dysuria, hematuria or urinary frequency Musculoskeletal Musculoskeletal: Denies arthralgias or myalgias Integumentary Denies Abrasions or rash Neurologic Neurologic: Denies headache(s) or paresthesias Psychiatric Psychiatric: Denies anxiety or depression Endocrine Endocrinology: Denies cold intolerance or heat intolerance Hematologic/Lymphatic Hematologic/Lymphatic: Denies easy bleeding or easy bruising Allergic/Immunologic Allergic/Immunologic ED: Denies mouth swelling or tongue swelling EXAM Physical Exam Const Vital Signs: 12/24/24 21:05 12/24/24 21:18 12/24/24 22:15 Temperature 98.8 F Temperature Source Oral Pulse Rate 92 100 Respiratory Rate 18 16 Respiratory Effort Labored Respiratory Depth Shallow Respiratory Pattern Blood Pressure 149/78 H 143/70 H Blood Pressure Mean 101 94 Pulse Ox 98 95 Oxygen Delivery Method Room Air 12/24/24 23:01 12/24/24 23:17 Temperature Temperature Source Pulse Rate 82 81 Respiratory Rate 16 12 Respiratory Effort Respiratory Depth Respiratory Pattern Normal Blood Pressure 126/72 H Blood Pressure Mean 90 Pulse Ox 95 Oxygen Delivery Method Positive well nourished and well developed Constitutional Narrative: Patient's vital signs are remarkable slightly low blood pressure. She is not hypoxic. BMI is 37.9. General Appearance ED: well developed; Negative for pallor HEENT HEENT Narrative: Head is atraumatic no cephalic. Ears normal. Nares patent. Posterior pharynx is normal. Eyes PERRL and EOMs intact bilaterally General Eye ED: Negative for pale conjunctiva or scleral icterus Neck no lymphadenopathy, supple and no meningeal signs Resp normal respiratory effort and No clear to auscultation bilaterally Auscultation: wheezes expiratory wheezes and scattered wheezes (Bilaterally) Cardio regular rate, regular rhythm, S1 normal heart sound and no murmurs GI non-tender, non-distended and no masses Extremity normal to inspection Extremity Narrative: There is no asymmetry, swelling, discoloration, leg vein distention, palpable cords or tenderness along the distribution of the deep venous system. Neuro oriented x3 and CN's II-XII intact bilaterally Sensorium / Orientation: alert Psych mental status grossly normal Skin no wounds and skin turgor normal General Skin Exam: Negative for jaundice or pallor MDM MDM MDM Narrative Medical decision making narrative: Differential diagnosis is exacerbation COPD, pneumonia, pneumothorax, history of physical not consistent with congestive heart failure, pulmonary embolus or aortic dissection. Workup included chest x-ray appropriate blood work, 60 mg of prednisone and DuoNeb followed by albuterol. I was informed by respiratory therapist she declined the 2 albuterol treatments. Lab Data Attestation: I reviewed the patient's lab results. Lab results narrative: CBC is normal. Basic metabolic panel reveals slight decrease in CO2 at 17.4. Anion gap is normal. Glucose is normal. Labs: Laboratory Results - last 24 hr 12/24/24 21:20 WBC 6.6 RBC 4.48 Hgb 13.1 Hct 39.3 MCV 87.7 MCH 29.2 MCHC 33.3 RDW Std Deviation 42.1 RDW Coeff of Grace 13.2 Plt Count 342 MPV 9.1 Immature Gran % (Auto) 0.600 Neut % (Auto) 55.4 Lymph % (Auto) 32.5 [place] % (Auto) 9.8 Eos % (Auto) 0.8 Baso % (Auto) 0.9 Absolute Neuts (auto) 3.7 Absolute Lymphs (auto) 2.15 Nucleated RBC % 0 Sodium 140 Potassium 3.9 Chloride 108 Carbon Dioxide 17.4 L Anion Gap 14 BUN 5 Creatinine 0.84 Estim Creat Clear Calc 70.10 Est GFR (MDRD) Non-Af 75 BUN/Creatinine Ratio 5.7 L Glucose 96 Calcium 9.2 Radiography Chest X-Ray - ED: 2 View and Read by ED Physician (Chronic interstitial changes consistent with COPD and hyperaeration. There is no infiltrate or effusion noted. There is no evidence of pneumothorax.) Diagnostic Testing: Clinical Impression(s) from Imaging Studies Chest X-Ray 12/24/24 22:46 IMPRESSION: Interstitial emphysematous lung changes. No focal consolidation. 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 She is moving significantly more air. There is no wheezing. She states she feels much better. Plan is burst of prednisone. Discharge Plan Triage Chief Complaint: Shortness of Breath ED Provider: Leobardo Harrington Dx/Rx/DC Orders Clinical Impression: Acute exacerbation of chronic obstructive pulmonary disease, Acute bronchospasm, Elevated blood-pressure reading without diagnosis of hypertension, PHILIP (obstructive sleep apnea), Atherosclerosis of coronary artery, Hyperlipidemia Instructions: ED COPD Flare Prescriptions: New prednisone 20 mg tablet 60 mg PO DAILY Qty: 15 0RF No Action (DME) spacer See Rx Instructions .Route .MEDSUPPLY Qty: 1 0RF Rx Instructions: As directed (DME) Disability Placard See Rx Instructions .Route .MEDSUPPLY Qty: 1 0RF Rx Instructions: expires 12/10/2025 estradiol 0.025 mg/24 hr patch weekly 1 patch transdermal QWEEK Trelegy Ellipta 100-62.5-25 mcg blister with device 1 inh inhalation DAILY Nucala 100 mg/mL auto-injector 100 mg subcut Q4W lorazepam 1 mg tablet 1 mg PO BID PRN (Reason: anxiety) latanoprost 0.005 % drops 1 drp ophthalmic (eye) QHS albuterol sulfate 90 mcg/actuation HFA aerosol inhaler 2 puff inhalation Q4H PRN (Reason: shortness of breath or wheezing) Qty: 8.5 6RF Rx Instructions: administer with spacer prednisone 10 mg tablet 10 mg PO QDAY Qty: 90 3RF clopidogrel 75 MG tablet 75 mg PO DAILY albuterol sulfate 2.5 mg /3 mL (0.083 %) solution for nebulization 2.5 mg INHALATION Q4H PRN Qty: 120 6RF Rx Instructions: Use q4 hours and PRN for wheezing Primary Care Provider: Naomi Whyte Referrals: Naomi Whyte DO [Primary Care Provider, Family Practice] Activity Restrictions/Additional Instructions: 1. Take the prednisone as prescribed for 5 days then return to your maintenance dose of 10 mg. 2. Since you have a nebulize at home you can do a treatment and repeat every 15 minutes for 2 or 3 treatments. If you are still having trouble breathing that would be a reason to come in to the emergency department. 3. You were not prescribed antibiotics and your white count is normal you do not have a fever and do not have a change in your sputum. Print Language: Turkmen Disposition Disposition: Home, Self Care
[2024-12-24 23:43] VITALS: BP 126/72; PULSE 81; RESP 12; TEMP 37.1; O2SAT 95
== END 2024-12-24 23:47 | disposition home or self-care (01) ==
PROVIDERS: Emergency Provider Emergency Medicine; PCP Family Medicine; Visit Provider Emergency Medicine
DX: J44.1 Chronic obstructive pulmonary disease with (acute) exacerbation (principal); G47.33 Obstructive sleep apnea (adult) (pediatric); R03.0 Elevated blood-pressure reading, without diagnosis of hypertension; I25.10 Atherosclerotic heart disease of native coronary artery without angina pectoris; E78.5 Hyperlipidemia, unspecified; J98.01 Acute bronchospasm; Z87.891 Personal history of nicotine dependence; Z86.16 Personal history of COVID-19; Z79.02 Long term (current) use of antithrombotics/antiplatelets
CPT/HCPCS: 71046; 80048; 85025; 93005; 94640; 99284; A4216

== ENCOUNTER 2025-01-16 12:53 | Outpatient (CLI) | payer MEDICARE, OTHER, SELFPAY ==
[2025-01-16 13:00] VITALS: BP 118/59; PULSE 70; RESP 16; TEMP 36.1; O2SAT 97
== END 2025-01-16 23:59 | disposition home or self-care (01) ==
LOC: MEDOUTP 12:53
PROVIDERS: PCP Family Medicine; Referring Provider Nurse Practitioner Acute Care; Visit Provider Nurse Practitioner Acute Care
DX: J45.50 Severe persistent asthma, uncomplicated (principal)
CPT/HCPCS: 96372; J2182

== ENCOUNTER → 2025-01-19 | Outpatient (CLI) | payer MEDICARE, OTHER, SELFPAY ==
--- NOTE | 2025-01-19 13:51 | CT_ITS ---
PROCEDURE: LOW DOSE CT LUNG SCREENING 01/19/2025 REASON FOR EXAM: SMOKER TECHNIQUE: Procedure Code: [id number] Modality: CT Procedure: LOW DOSE CT LUNG SCREENING Coronal and Sagittal reconstruction series were provided. One or more dose reduction techniques were used (e.g., Automated exposure control, adjustment of the mA and/or kV according to patient size, use of iterative reconstruction technique). REFERENCE LINK: [facility] Lung-RADS RADIATION DOSE SUMMARY: CTDlvol: 3.18 mGy DLP: 106.42 mGycm COMPARISON: Low-dose CT lung screen, 12/28/2023. FINDINGS: PULMONARY NODULES: (Only nodules >3mm are reported) Lower neck:The thyroid gland is grossly unremarkable. There is no supraclavicular lymphadenopathy. Mediastinum:There are multiple reactive mediastinal lymph nodes, the largest, a pretracheal node, measuring 1.7 x 1.0 cm. Heart and thoracic aorta:The heart size is normal. There is no pericardial effusion. There is significant calcific vascular disease of the coronary arteries and thoracic aorta. The aortic valve is heavily calcified. Esophagus:Normal. Upper Abdomen:There is significant calcific vascular disease of the visualized abdominal aorta. There is calcified plaque of the origin of the SMA and both renal arteries. There are benign calcified splenic granulomas. Chest wall:The visualized soft tissues of the chest wall appear unremarkable. There is no axillary lymphadenopathy. There is diffuse osteopenia of the visualized spine. There is mild dextroscoliosis of the thoracic spine. Lungs, airways and pleura: There is pleural-parenchymal scarring in both lung apices. There is moderate upper lobe predominant centrilobular emphysema. There is an area of pleural-based airspace consolidation in the inferior segment of the lingula measuring 2.[address]/Low Dose CT Lung Screening IMPRESSION: 1. Area of masslike consolidation in the lingula. 2. Emphysema. 3. Calcific vascular disease. 4. Other findings as noted. Lung-RADS Category: 3 S: Probably benign. Emphysema. Calcific vascular diseas e. Recommendation: Follow up low-dose chest CT in six-months. Reading Location: [place] [id number]
== END | disposition home or self-care (01) ==
LOC: CT 13:48
PROVIDERS: PCP Family Medicine; Referring Provider Nurse Practitioner Acute Care; Visit Provider Nurse Practitioner Acute Care
DX: Z12.2 Encounter for screening for malignant neoplasm of respiratory organs (principal); F17.211 Nicotine dependence, cigarettes, in remission
CPT/HCPCS: 71271

== ENCOUNTER → 2025-01-26 | Outpatient (CLI) | payer MEDICARE, OTHER, SELFPAY | END | disposition home or self-care (01) | LOC: PSN 07:57 | PROVIDERS: PCP Family Medicine; Referring Provider Nurse Practitioner Acute Care; Visit Provider Nurse Practitioner Acute Care | DX: J44.9 Chronic obstructive pulmonary disease, unspecified (principal) | CPT/HCPCS: 94060; 94726; 94729 ==

== ENCOUNTER → 2025-02-02 | Outpatient (CLI) | payer MEDICARE, OTHER, SELFPAY ==
--- NOTE | 2025-02-02 12:50 | RAD_ITS ---
PROCEDURE: RAD/Abdomen Single View
== END | disposition home or self-care (01) ==
LOC: MTRAD 12:49
PROVIDERS: PCP Family Medicine; Referring Provider Family Medicine; Visit Provider Family Medicine
DX: R10.9 Unspecified abdominal pain (principal)
CPT/HCPCS: 74018

== ENCOUNTER → 2025-02-03 | Outpatient (CLI) | payer MEDICARE, OTHER, SELFPAY ==
--- NOTE | 2025-02-03 08:30 | PET_ITS ---
PROCEDURE: PET/CT TUMOR BASE -THIGH INIT 02/03/2025 REASON FOR EXAM: 70 y/o F with ABNORMAL FINDINGS IN LUNG FIELD TECHNIQUE: Procedure Code: PETPTCTINIT Modality: PT Procedure: PET/CT TUMOR BASE -THIGH INIT Following the intravenous administration of radionucleotide, image acquisition on a dedicated PET/CT unit was performed at one hour post injection. A preliminary CT study encompassing the Skull base, neck, chest, abdomen, pelvis, and proximal thighs was performed for purposes of attenuation correction and anatomic localization. The proximal thighs were also included. The patient's blood glucose level was 122 mg/dL (allowable range: 50-180 mg/dL). RADIOPHARMACEUTICAL: 13.55 mCi 18F-FDG (Fluorodeoxyglucose F18) IV was injected into he patient. RADIATION DOSE SUMMARY: Effective Dose: Approximately 7 mSv for a standard whole-body PET scan Organ Doses: Varies by organ, with higher doses typically to the bladder, liver, and brain COMPARISON: COMPARISON FROM CT, PET OR OTHER PERTINENT EXAMS: Chest CT of 01/19/2025.. FINDINGS: Physiologic uptake: There may be expected metabolic uptake within the brain, tongue and floor of the mouth and larynx/vocal cords, heart, helder (many normal individuals have hilar uptake in less than 3 nodes with mildly avid hilar nodes less than 2.7 SUV), liver and spleen, system, and GI tract and symmetric muscle uptake. FDG AVID AND NON-AVID LESIONS. Reported avid SUV values (g/mL*) are maximum SUV. NECK: There are no significant neck abnormalities. CHEST: Chest wall- There are no significant chest wall abnormalities. Axilla- There are no significant axillary abnormalities. Lung parenchyma- There are no significant lung parenchyma abnormalities. Mediastinum- There are no significant hilar or mediastinal adenopathy. Pleura- There are no significant pleural abnormalities. ABDOMEN: Prominent arterial calcification; no evidence of abdominal aortic aneurysm. Stomach- No significant abnormalities. Liver- No significant abnormalities. Spleen- No significant abnormalities. Pancrease- No significant abnormalities. Kidneys- No significant abnormalities. Bowel- Normal bowel activity. Spine- No significant abnormalities. PELVIS: Moderate sigmoid diverticulosis. Bowel- Normal physiologic bowel activity is identified. Masses- There are no pelvic masses. Bones- Degenerative changes of the spine are most prominent in the cervical spine. With the use of bone window settings, there are no osteolytic or osteoblastic lesions. There are no FDG avid lesions within the visualized portion of the axial skeleton. PET/PET/CT Tumor Base -Thigh Init IMPRESSION: FDG avid- No significant avid lesions. Other: 1. Moderate sigmoid diverticulosis. 2. Prominent arterial calcification; no evidence of abdominal aortic aneurysm. 3. Degenerative changes of the spine are most prominent at the cervical spine. Please note the low-dose CT scan was performed to facilitate PET image reconstr uction and anatomic localization and does not replace a diagnostic CT. Any diagnostic CT requested and performed at the time of the PET will be reported separately. Reading Location: [place] [id number]
== END | disposition home or self-care (01) ==
PROVIDERS: PCP Family Medicine; Referring Provider Nurse Practitioner Acute Care; Visit Provider Nurse Practitioner Acute Care
DX: R91.1 Solitary pulmonary nodule (principal); F17.200 Nicotine dependence, unspecified, uncomplicated
CPT/HCPCS: 78815; A9552

== ENCOUNTER 2025-02-04 12:26 | Inpatient (IN) | payer MEDICARE, OTHER, SELFPAY ==
[2025-02-04] VITALS (13 sets, daily range): BP systolic 112–140; BP diastolic 56–84; PULSE 90–112; RESP 18–30; TEMP 36.4–36.9; O2SAT 90–97; BMI 34.1; BMI 35.6
--- NOTE | 2025-02-04 12:57 | RAD_ITS ---
PROCEDURE: RAD/Chest 1 View (Portable)
--- NOTE | 2025-02-04 12:58 | ED.VIS.DYS ---
HPI History of Present Illness Chief Complaint: Shortness of Breath Detail of Chief Complaint: Shortness of breath Informant: patient Narrative Narrative: Patient presents with worsening shortness of breath since yesterday. Complains of a cough. Fever up to 100.3 at home. Cough at times productive of some white to clear sputum. She denies chest pain. Patient normally does not wear home O2 but when she woke up this morning and checked her pulse ox it was 83%. Patient has history of COPD. Patient also has a lung mass for which she had a PET scan yesterday. Denies recent travel or surgery. No history of PE or DVT. [facility] Medical History (Updated 02/04/25 @ 15:[address] Inocencia Cross, DO) Depression Anxiety Former smoker Asthma Glaucoma Macular degeneration of both eyes Social anxiety disorder Sense of smell altered Urinary tract infection with hematuria COVID-19 COPD (chronic obstructive pulmonary disease) TORREZ (dyspnea on exertion) PHILIP (obstructive sleep apnea) Nicotine dependence in remission Obesity Atherosclerotic heart disease of [place] coronary artery without angina pectoris Cardiac murmur, unspecified Chest pain, unspecified Hyperlipidemia Peripheral vascular disease Central sleep apnea UTI (urinary tract infection) Urinary frequency Home Medications ?Medication ?Instructions ?Recorded ?Last Taken ?Type clopidogrel 75 mg tablet 75 mg PO DAILY 10/23/15 05/10/18 History spacer #1 ea 07/29/19 Unknown Rx Disability Placard #1 ea 01/04/21 Unknown Rx estradiol 0.025 mg/24 hr weekly 1 patch transdermal QWEEK 04/20/23 Unknown History transdermal patch mepolizumab 100 mg/mL subcutaneous 100 mg subcut Q4W 01/28/24 Unknown History auto-injector (Nucala) albuterol sulfate 90 mcg/actuation 2 puff inhalation Q4H PRN 09/10/24 Unknown Rx aerosol inhaler shortness of breath or wheezing #8.5 grams latanoprost 0.005 % eye drops 1 drp ophthalmic (eye) QHS 09/10/24 Unknown History lorazepam 1 mg tablet 1 mg PO BID PRN anxiety 09/10/24 Unknown History albuterol sulfate 2.5 mg/3 mL 2.5 mg (3 mL) inhalation Q4H PRN 11/06/24 Unknown Rx (0.083 %) solution for nebulization #120 vials fluticasone fur. 100 mcg-umeclid 1 inh inhalation DAILY #3 ea 01/20/25 Unknown Rx 62.5 mcg-vilant 25 mcg inhalat.powder (Trelegy Ellipta) Allergy/AdvReac Type Severity Reaction Status Date / Time codeine Allergy Itching Verified 02/04/25 12:30 morphine Allergy Itching Verified 02/04/25 12:30 doxycycline AdvReac Severe severe Verified 02/04/25 12:30 headaches and muscle spasms to the chest Family History Mother Cancer lung and cervical Father Emphysema Chronic Bronchitis, in 80s. Sister Diabetes CAD (coronary artery disease) Sister Heart disease Brother Respiratory abnormalities Colon cancer Surgical History History of cardiac catheterization H/O oophorectomy History of tonsillectomy H/O: hysterectomy S/P surgical manipulation of ankle joint Social History Smoking Status: Former smoker pack-years: 80 Tobacco: How many years used: 40 how long ago did patient quit smoking: about 8 years ago second hand exposure: No alcohol intake: never substance use type: does not use what type of physical activity do you participate in: none ROS ROS ED Review of Systems ROS Unobtainable: other Constitutional Constitutional ED: Reports lethargy; Denies chills, fever(s), sweats or weight loss Eyes Eyes: Denies blurry vision, change in vision or diplopia ENT ENT ED: Denies rhinorrhea or sore throat Cardiovascular Cardiovascular: Denies chest pain, orthopnea or racing heartbeat Respiratory/Chest Respiratory/Chest: Reports cough, dyspnea and dyspnea on exertion; Denies orthopnea or sputum Gastrointestinal Gastrointestinal: Denies abdominal pain, diarrhea, nausea or vomiting Genitourinary Genitourinary ED: Denies dysuria, hematuria or urinary frequency Musculoskeletal Musculoskeletal: Denies arthralgias, back pain, myalgias or neck pain Integumentary Denies abscess, Abrasions or rash Neurologic Neurologic: Denies headache(s) or weakness Psychiatric Psychiatric: Denies anxiety, depression or suicidal thoughts Endocrine Endocrinology: Denies polydipsia, polyphagia or polyuria Hematologic/Lymphatic Hematologic/Lymphatic: Denies easy bleeding, easy bruising or lymphadenopathy Allergic/Immunologic Allergic/Immunologic ED: Denies mouth swelling, tongue swelling or urticaria EXAM Physical Exam Const Vital Signs: 02/04/25 12:27 02/04/25 12:40 02/04/25 12:57 Temperature 97.8 F Temperature Source Oral Pulse Rate 112 H Respiratory Rate 30 H Respiratory Pattern Blood Pressure 140/84 H Blood Pressure Mean 102 Pulse Ox 90 97 96 Oxygen Delivery Method Room Air Nasal Cannula Nasal Cannula Oxygen Flow Rate (L/min) 2 2 02/04/25 13:08 02/04/25 13:20 02/04/25 14:17 Temperature 98.0 F Temperature Source Oral Pulse Rate 100 90 Respiratory Rate 18 19 H Respiratory Pattern Normal Blood Pressure 115/69 Blood Pressure Mean 84 Pulse Ox 94 Oxygen Delivery Method Nasal Cannula Nasal Cannula Oxygen Flow Rate (L/min) 2 3 02/04/25 14:54 Temperature 98.5 F Temperature Source Pulse Rate 98 Respiratory Rate 22 H Respiratory Pattern Blood Pressure 116/70 Blood Pressure Mean 85 Pulse Ox 95 Oxygen Delivery Method Oxygen Flow Rate (L/min) Positive well nourished and well developed General Appearance ED: well developed and NAD HEENT Reports TM's clear and moist mucous membranes normocephalic and atraumatic; Negative for trauma or tenderness Tympanic Membrane ED: Yes TM's clear Eyes PERRL and EOMs intact bilaterally General Eye ED: Negative for pale conjunctiva or scleral icterus Neck no lymphadenopathy, supple and no JVD General: Negative for tenderness Chest Wall inspection of chest normal and palpation of chest normal Chest: Negative for tenderness Resp No normal respiratory effort and No clear to auscultation bilaterally Resp Narrative: Mild conversational dyspnea. Mild tachypnea. No accessory muscle use or retractions. Expiratory wheezes throughout. Slightly diminished breath sounds bilaterally Effort and Inspection: Negative for respiratory distress or pain with movement Auscultation: Negative for rhonchi, wheezes or diminished lung sounds Cardio regular rate, regular rhythm, S1 normal heart sound, S2 normal heart sound and no murmurs Peripheral Pulses: pulses 2+ throughout GI normal to inspection, nondistended, normoactive bowel sounds, soft to palpation, non-tender, non-distended and no masses Back/Spine no CVA tenderness and no thoracic nor lumbar tenderness Extremity normal to inspection General Extremety ED: Negative for edema General Extremity: Negative for edema Neuro oriented x3, CN's II-XII intact bilaterally, no sensory deficits noted and gait normal Sensorium / Orientation: awake, alert, oriented to person, oriented to place and oriented to time Motor Exam: strength 5/5 throughout and strength abnormal Psych mental status grossly normal Skin no rashes or lesions noted and no wounds MDM MDM MDM Narrative Medical decision making narrative: Patient presents with shortness of breath with cough and fever. History of a lung mass and had PET scan done yesterday. Patient tells me she was hypoxic at home 83% on room air and does not wear home O2. Patient was ordered DuoNeb aerosol and started on Solu-Medrol. CBC with differential obtained showed a sinus rhythm with a rate of [address] changes. CBC with differential showed a white count 6.3 with hemoglobin 14 and platelet count of 338. Chemistries unremarkable. Lactate normal at 1.5. Troponin normal at 8. [employer] was normal at 57. 1 view chest x-ray unremarkable. Patient was taken off oxygen and ambulated because she felt improved after treatment and her wheezing resolved. However with ambulation O2 sat dropped to 88 became dyspneic and began to wheeze again. She was ordered a repeat DuoNeb aerosol. Discussed case with hospitalist who. Asked that we order a CTA of the chest to rule out a pulmonary emboli. Patient will be admitted in stable condition. Lab Data Attestation: I reviewed the patient's lab results. Labs: Laboratory Results - last 24 hr 02/04/25 12:55 WBC 6.3 RBC 4.78 Hgb 14.0 Hct 41.2 MCV 86.2 MCH 29.3 MCHC 34.0 RDW Std Deviation 42.0 RDW Coeff of Grace 13.4 Plt Count 338 MPV 9.4 Immature Gran % (Auto) 0.800 Neut % (Auto) 63.8 Lymph % (Auto) 22.0 [place] % (Auto) 10.8 H Eos % (Auto) 1.8 Baso % (Auto) 0.8 Absolute Neuts (auto) 4.0 Absolute Lymphs (auto) 1.38 Nucleated RBC % 0 Sodium 139 Potassium 3.6 Chloride 105 Carbon Dioxide 18.9 L Anion Gap 16 H BUN 5 Creatinine 0.81 Estim Creat Clear Calc 67.74 Est GFR (MDRD) Non-Af 78 BUN/Creatinine Ratio 6.6 L Glucose 121 H Lactic Acid 1.5 Calcium 9.6 Troponin T High Sens 8 NT pro BNP II 57 Radiography Diagnostic Testing: Clinical Impression(s) from Imaging Studies Chest X-Ray 02/04/25 12:57 IMPRESSION: No Acute Findings. Reading Location: [facility] 1 view chest x-ray obtained interpreted by myself as no evidence of infiltrate or pneumothorax or acute disease process. Radiology in agreement. EKG Initial EKG: Attestation: I personally reviewed and interpreted this EKG as follows: Comments: Sinus rhythm with ventricular rate of [address] changes Discharge Plan Dx/Rx/DC Orders Clinical Impression: Dyspnea, Respiratory failure, Acute exacerbation of chronic obstructive pulmonary disease Disposition Disposition: Acute Care Hospital [facility]
[2025-02-04 13:12] LABS: Hematocrit 41.2 % (37-47); Hemoglobin 14.0 g/dL (12.0-15.0); Immature Granulocytes Count 0.050 X10^3/uL (0.0-0.0); Mean Corp Hgb Conc 34.0 g/dL (32-36); Mean Corpuscular Volume 86.2 fL (81-99); Mean Platelet Vol. 9.4 fl (6.2-12.0); NRBC Flagged by Analyzer 0 % (0-5); Platelet Count 338 K/mm3 (150-450); RBC Distribution Width CV 13.4 % (11.6-14.6); RBC Distribution Width SD 42.0 fl (35.1-43.9); Red Blood Count 4.78 M/mm3 (4.2-5.4); White Blood Count 6.3 K/mm3 (4.4-11.0)
[2025-02-04 13:48] LABS: Anion Gap 16 (5-15); BUN 5 mg/dL (4-19); BUN/Creat Ratio 6.6 RATIO (10-20); Calcium,Total 9.6 mg/dL (7.6-11.0); Carbon Dioxide 18.9 mmol/L (21.0-32.0); Chloride 105 mmol/L (98-108); Estimated Creatinine Clearance 67.74 ml/min (50-250); Glucose 121 mg/dL (70-99); Potassium 3.6 mmol/L (3.3-5.1)
[2025-02-04 14:09] LABS: Pro- Brain NATRIURETIC PEPTIDE 57 pg/mL (<=900); Troponin T High Sensitivity 8 ng/L (<=14)
--- NOTE | 2025-02-04 15:08 | PCM.HP.STD ---
HPI - General General Date of Admission: 02/04/25 Date of Service: 02/04/25 Chief Complaint: Shortness of breath HPI Narrative TARSHA GONZALEZ, is a 70 F who presented to [facility] ED on 02/04/2025 with worsening shortness of breath. Medical history significant for COPD?asthma overlap syndrome, follows with pulmonology here in the office. Does not wear home oxygen. She presented today with worsening shortness of breath and has a pulse ox at home that was reading in the low to mid 80s. In the ED she was satting in the high 80s on room air at rest, improved with 2 L nasal cannula. She was mildly tachycardic but otherwise afebrile and normotensive. CTA chest showed no PE, known moderate centrilobular emphysema, no other concerning findings. She was given DuoNebs and IV steroids in the ED, and hospitalist was contacted for admission. I saw the patient at bedside in the ED. Patient had fairly good energy level and was sitting back comfortably in bed, in no acute distress. Notes that her shortness of breath at rest is improved but she continues to feel quite short of breath with exertion when she tried to walk to the bathroom in the ED. She denies any fevers or chills. Denies any URI symptoms. No other acute concerns. Will be admitted for further management. [facility] Medical History (Updated 02/04/25 @ 15:[address] Inocencia Cross, ) Depression Anxiety Former smoker Asthma Glaucoma Macular degeneration of both eyes Social anxiety disorder Sense of smell altered Urinary tract infection with hematuria COVID-19 COPD (chronic obstructive pulmonary disease) TORREZ (dyspnea on exertion) PHILIP (obstructive sleep apnea) Nicotine dependence in remission Obesity Atherosclerotic heart disease of [place] coronary artery without angina pectoris Cardiac murmur, unspecified Chest pain, unspecified Hyperlipidemia Peripheral vascular disease Central sleep apnea UTI (urinary tract infection) Urinary frequency Home Medications ?Medication ?Instructions ?Recorded ?Last Taken ?Type clopidogrel 75 mg tablet 75 mg PO DAILY 10/23/15 05/10/18 History spacer #1 ea 07/29/19 Unknown Rx Disability Placard #1 ea 01/04/21 Unknown Rx estradiol 0.025 mg/24 hr weekly 1 patch transdermal QWEEK 04/20/23 Unknown History transdermal patch mepolizumab 100 mg/mL subcutaneous 100 mg subcut Q4W 01/28/24 Unknown History auto-injector (Nucala) albuterol sulfate 90 mcg/actuation 2 puff inhalation Q4H PRN 09/10/24 Unknown Rx aerosol inhaler shortness of breath or wheezing #8.5 grams latanoprost 0.005 % eye drops 1 drp ophthalmic (eye) QHS 09/10/24 Unknown History lorazepam 1 mg tablet 1 mg PO BID PRN anxiety 09/10/24 Unknown History albuterol sulfate 2.5 mg/3 mL 2.5 mg (3 mL) inhalation Q4H PRN 11/06/24 Unknown Rx (0.083 %) solution for nebulization #120 vials fluticasone fur. 100 mcg-umeclid 1 inh inhalation DAILY #3 ea 01/20/25 Unknown Rx 62.5 mcg-vilant 25 mcg inhalat.powder (Trelegy Ellipta) Allergy/AdvReac Type Severity Reaction Status Date / Time codeine Allergy Itching Verified 02/04/25 12:30 morphine Allergy Itching Verified 02/04/25 12:30 doxycycline AdvReac Severe severe Verified 02/04/25 12:30 headaches and muscle spasms to the chest Family History Mother Cancer lung and cervical Father Emphysema Chronic Bronchitis, in 80s. Sister Diabetes CAD (coronary artery disease) Sister Heart disease Brother Respiratory abnormalities Colon cancer Surgical History History of cardiac catheterization H/O oophorectomy History of tonsillectomy H/O: hysterectomy S/P surgical manipulation of ankle joint Social History Smoking Status: Former smoker pack-years: 80 Tobacco: How many years used: 40 how long ago did patient quit smoking: about 8 years ago second hand exposure: No alcohol intake: never substance use type: does not use what type of physical activity do you participate in: none ROS Constitutional Constitutional: Reports fatigue; Denies chills, fever(s) or weakness Cardiovascular Cardiovascular: Denies chest pain Respiratory/Chest Respiratory/Chest: Reports cough, shortness of breath at rest, shortness of breath with exertion and wheezing; Denies productive cough Gastrointestinal Gastrointestinal: Denies abdominal pain Musculoskeletal Musculoskeletal: Denies arthralgias or myalgias Neurologic Neurologic: Denies dizziness, focal weakness, headache(s), numbness or tingling Vital Signs Vital Signs Vital Signs: 02/04/25 12:27 02/04/25 12:40 02/04/25 12:57 Temperature 97.8 F Temperature Source Oral Pulse Rate 112 H Respiratory Rate 30 H Respiratory Pattern Blood Pressure 140/84 H Blood Pressure Mean 102 Pulse Ox 90 97 96 Oxygen Delivery Method Room Air Nasal Cannula Nasal Cannula Oxygen Flow Rate (L/min) 2 2 02/04/25 13:08 02/04/25 13:20 02/04/25 14:17 Temperature 98.0 F Temperature Source Oral Pulse Rate 100 90 Respiratory Rate 18 19 H Respiratory Pattern Normal Blood Pressure 115/69 Blood Pressure Mean 84 Pulse Ox 94 Oxygen Delivery Method Nasal Cannula Nasal Cannula Oxygen Flow Rate (L/min) 2 3 02/04/25 14:54 Temperature 98.5 F Temperature Source Pulse Rate 98 Respiratory Rate 22 H Respiratory Pattern Blood Pressure 116/70 Blood Pressure Mean 85 Pulse Ox 95 Oxygen Delivery Method Oxygen Flow Rate (L/min) Weight Weight: 87.4 kg Body Mass Index (BMI) 34.1 Physical Exam Const alert, oriented x3 and no apparent distress Constitutional Narrative: Elderly female, class II obesity, sitting back comfortably in bed, conversing normally, in no acute distress. General Appearance: cooperative and comfortable HEENT normocephalic, head/scalp atraumatic, hearing grossly normal bilaterally, nasal mucous membranes and turbinates normal and moist oral mucous membranes Eyes PERRL, EOMs intact bilaterally and conjunctivae normal Neck full ROM Chest inspection of chest normal Resp normal respiratory effort and no use of accessory muscles Resp Narrative: Breathing comfortably on 2 L nasal cannula at rest. Mildly diminished breath sounds bilaterally throughout with mild upper airway wheezing noted. No crackles noted. Cardio no murmurs and peripheral pulses 2+ throughout Cardio Narrative: Tachycardic, regular rhythm. GI normal to inspection, nondistended, normoactive bowel sounds, soft to palpation, non-tender and non-distended Back/Spine normal ROM Extremity normal to inspection, full ROM and no pedal edema Skin no rashes or lesions noted Psych mental status grossly normal Results Lab / Micro Data 02/04/25 12:55 02/04/25 12:55 Labs: Laboratory Results - last 24 hr 02/04/25 12:55: WBC 6.3, RBC 4.78, Hgb 14.0, Hct 41.2, MCV 86.2, MCH 29.3, MCHC 34.0, RDW Std Deviation 42.0, RDW Coeff of Grace 13.4, Plt Count 338, MPV 9.4, Immature Gran % (Auto) 0.800, Neut % (Auto) 63.8, Lymph % (Auto) 22.0, [place] % (Auto) 10.8 H, Eos % (Auto) 1.8, Baso % (Auto) 0.8, Absolute Neuts (auto) 4.0, Absolute Lymphs (auto) 1.38, Nucleated RBC % 0, Sodium 139, Potassium 3.6, Chloride 105, Carbon Dioxide 18.9 L, Anion Gap 16 H, BUN 5, Creatinine 0.81, Estim Creat Clear Calc 67.74, Est GFR (MDRD) Non-Af 78, BUN/Creatinine Ratio 6.6 L, Glucose 121 H, Lactic Acid 1.5, Calcium 9.6, Troponin T High Sens 8, NT pro BNP II 57 Micro: Microbiology 02/04/25 13:07 Mucosa - Nose SARS-CoV-2, Influenza & RSV (PCR) - Final Imaging Radiology Impression Chest X-Ray 02/04/25 12:57 IMPRESSION: No Acute Findings. Reading Location: [facility] Assessment & Plan Assessment/Plan (1) Acute exacerbation of chronic obstructive pulmonary disease: PLAN: Plan Patient is a 70-year-old female who presented to [facility] ED on 02/04/2025 with worsening shortness of breath. 1. Acute hypoxia secondary to COPD/asthma exacerbation, history of COPD?asthma overlap syndrome ? Admit under inpatient status to PCU. Follows with outpatient pulmonology, last office visit on 01/20. Not on home oxygen, was requiring 2 L nasal cannula at rest on admit to maintain appropriate saturations. CTA chest with no PE, no concerning findings. Most consistent with COPD/asthma exacerbation. Shortness of breath improved at rest with DuoNebs in the ED. Will treat with IV steroids and scheduled DuoNebs. Procalcitonin normal and no infiltrates on chest imaging, low concern for bacterial infection, will hold off on antibiotics. Respiratory PCR panel negative. Will wean supplemental oxygen as able. Continue home long-acting inhalers as well. Continue Nucala injections on discharge. 2. Former tobacco dependence ? Encouraged continued cessation. Notably patient had recent low-dose CT scan for lung cancer screening done on 01/19 that showed a concerning finding in the left lingula region. PET/CT scan on 02/03 showed no evidence of malignancy. Repeat CT scan on this admission with no finding noted in the left lingula region so suspect that may have been called incorrectly. 3. Class II obesity with PHILIP ? BMI 35.6 on admit. Complicates hospital course and care. Continue home PAP therapy at night. 4. Anxiety ? OARRS reviewed. Continue home Ativan twice daily as needed. 5. History of nonobstructive CAD, hyperlipidemia ? Follows with cardiology. Continue home Plavix. Was previously trialed on statin but apparently discontinued due to intolerance. 6. History of drug-induced myopathy ? Noted on recent pulmonology note that patient may have a drug-induced myopathy secondary to chronic use of prednisone. Treating appropriately with steroids as above but recommend limiting steroid course as able. DVT prophylaxis: Lovenox CODE STATUS: DNR CCA, okay to intubate Expected disposition: Home, TBD Total clinical time spent by myself addressing the patient's medical issues, reviewing all the data, and collaborating with patient's care team: 77 minutes. Charges/Coding Visit Charges Inpatient E&M: 96677 Init Hosp L3
[2025-02-04 15:38] LABS: Troponin T High Sens 2 HR 8 ng/L (<=14)
--- NOTE | 2025-02-04 16:10 | CT_ITS ---
PROCEDURE: CT/CTA Chest W/WO Contrast
[2025-02-04 16:40] LABS: Procalcitonin 0.05 ng/mL (<=0.10)
[2025-02-04] MEDS: 0.9% Saline Lock 10 ML Syringe IV ×2 (17:46→21:48)
[2025-02-04 18:33] LABS: Troponin T High Sens 4 HR 14 ng/L (<=14)
[2025-02-04] MEDS: Azithromycin 500 MG in 0.9% Normal Saline (250mL Bag) 250 ML 250 MG IV (18:48)
[2025-02-04] MEDS: Latanoprost 0.005% 1 Bottle 1 DRP OPHTHALMIC (21:47)
[2025-02-05] VITALS (7 sets, daily range): BP systolic 116–141; BP diastolic 71–75; PULSE 74–90; RESP 16–20; TEMP 36.7; O2SAT 92–96
[2025-02-05] MEDS: 0.9% Saline Lock 10 ML Syringe IV ×2 (05:25→10:29)
[2025-02-05 05:45] LABS: Hematocrit 38.9 % (37-47); Hemoglobin 13.0 g/dL (12.0-15.0); Mean Corp Hgb Conc 33.4 g/dL (32-36); Mean Corpuscular Volume 85.5 fL (81-99); Mean Platelet Vol. 9.5 fl (6.2-12.0); Platelet Count 362 K/mm3 (150-450); RBC Distribution Width CV 13.4 % (11.6-14.6); RBC Distribution Width SD 42.1 fl (35.1-43.9); Red Blood Count 4.55 M/mm3 (4.2-5.4); White Blood Count 3.4 K/mm3 (4.4-11.0)
[2025-02-05 06:26] LABS: Anion Gap 13 (5-15); BUN 8 mg/dL (4-19); BUN/Creat Ratio 10.4 RATIO (10-20); Calcium,Total 9.1 mg/dL (7.6-11.0); Carbon Dioxide 18.7 mmol/L (21.0-32.0); Chloride 107 mmol/L (98-108); Estimated Creatinine Clearance 70.16 ml/min (50-250); Glucose 183 mg/dL (70-99); Potassium 3.9 mmol/L (3.3-5.1)
--- NOTE | 2025-02-05 07:32 | PN.HOSP_ITS ---
Reason for Visit
--- NOTE | 2025-02-05 07:32 | PCM.PN.HOSP ---
Reason for Visit Chief Complaint: Shortness of breath Subjective Subjective Patient is a 70-year-old female admitted with progressive shortness of breath diagnosed with an exacerbation of asthma/COPD admitted to a monitored bed where patient is currently being managed Objective Data Objective Data Vital Signs: Vital Signs Temp Pulse Resp BP Pulse Ox O2 Del Method O2 Flow Rate 98.1 F 90 18 141/75 H 94 Nasal Cannula 3 02/05/25 03:53 02/05/25 06:44 02/05/25 06:44 02/05/25 03:53 02/05/25 06:44 02/05/25 06:44 02/05/25 06:44 Oxygen Flow Rate (L/min) 3 Oxygen Delivery Method Nasal Cannula Weight: 91.2 kg Body Mass Index (BMI) 35.6 Intake & Output: Intake and Output for Last 24 Hours 02/03/25 02/04/25 02/05/25 23:59 23:59 23:59 Intake Total 540 / 540 500 / 500 Balance 540 / 540 500 / 500 Lab / Micro Data 02/05/25 05:10 02/05/25 05:10 Labs: Laboratory Results - last 24 hr 02/04/25 12:55: WBC 6.3, RBC 4.78, Hgb 14.0, Hct 41.2, MCV 86.2, MCH 29.3, MCHC 34.0, RDW Std Deviation 42.0, RDW Coeff of Grace 13.4, Plt Count 338, MPV 9.4, Immature Gran % (Auto) 0.800, Neut % (Auto) 63.8, Lymph % (Auto) 22.0, [place] % (Auto) 10.8 H, Eos % (Auto) 1.8, Baso % (Auto) 0.8, Absolute Neuts (auto) 4.0, Absolute Lymphs (auto) 1.38, Nucleated RBC % 0, Sodium 139, Potassium 3.6, Chloride 105, Carbon Dioxide 18.9 L, Anion Gap 16 H, BUN 5, Creatinine 0.81, Estim Creat Clear Calc 67.74, Est GFR (MDRD) Non-Af 78, BUN/Creatinine Ratio 6.6 L, Glucose 121 H, Lactic Acid 1.5, Calcium 9.6, Troponin T High Sens 8, NT pro BNP II 57 02/04/25 15:00: Troponin T Hi Sens 2 Hr 8 02/04/25 15:32: Procalcitonin 0.05 02/04/25 17:34: Troponin T Hi Sens 4Hr 14 02/05/25 05:10: WBC 3.4 L, RBC 4.55, Hgb 13.0, Hct 38.9, MCV 85.5, MCH 28.6, MCHC 33.4, RDW Std Deviation 42.1, RDW Coeff of Grace 13.4, Plt Count 362, MPV 9.5, Sodium 138, Potassium 3.9, Chloride 107, Carbon Dioxide 18.7 L, Anion Gap 13, BUN 8, Creatinine 0.74, Estim Creat Clear Calc 70.16, Est GFR (MDRD) Non-Af 87, BUN/Creatinine Ratio 10.4, Glucose 183 H, Calcium 9.1 Micro: Microbiology 02/04/25 17:10 Mucosa - Nasopharyngeal Respiratory Panel (PCR) - Final 02/04/25 13:07 Mucosa - Nose SARS-CoV-2, Influenza & RSV (PCR) - Final Radiography Diagnostic Testing: Radiology Impression Chest X-Ray 02/04/25 12:57 IMPRESSION: No Acute Findings. Reading Location: [facility] Chest CTA 02/04/25 16:10 IMPRESSION: No acute intrathoracic abnormality. No central pulmonary emboli. Inadequate evaluation of the segmental-subsegmental pulmonary arterial branches due to significant respiratory motion. Moderate centrilobular emphysema. No airspace consolidation/edema or pleural effusion. Reading Location: [facility] Physical Exam Narrative GENERAL: cooperative HEENT: Atraumatic; normocephalic EYES; Anicteric, Normal Conjunctiva NECK; supple, normal thyroid, RESPIRATORY: Diminished to auscultation, no wheezes CARDIOVASCULAR: Regular S1 S2, GI: soft, normoactive bowel sounds, : No Renal angle tenderness; EXTREMITIES: No edema, no clubbing, MUSCULOSKELETAL: no muscle wasting NEURO: Awake; no lateralizing signs. SKIN: No Rash PSYCH; Flat affect Assessment & Plan Assessment/Plan (1) Acute exacerbation of chronic obstructive pulmonary disease: PLAN: Plan Patient is a 70-year-old female admitted with progressive shortness of breath diagnosed with an exacerbation of asthma/COPD admitted to a monitored bed where patient is currently being managed 1. Acute hypoxia ? Secondary to combination of asthma and COPD exacerbation. Moderate centrilobular emphysema. No airspace consolidation/edema or pleural effusion. Patient started on bronchodilator treatment, systemic steroid as well as antibiotic therapy. Patient placed on oxygen titrated to keep saturation greater than 90. 2. Obstructive sleep apnea ? Consistent use of PAP therapy encouraged 3. Class II obesity with BMI of 35.6 ? Complicating care weight loss advised 4. Anxiety disorder ? Patient is on lorazepam twice daily as needed 5. Nonobstructive coronary artery disease ? Patient is on clopidogrel 6. Dyslipidemia ? Patient apparently did not tolerate statin therapy due to significant CAD 7. DVT prophylaxis ? On enoxaparin Time spent in the patient's overall evaluation,decision-making process, review of diagnostic data, adjustment of management, discussion with other providers, nursing nursing and ancillary staff involved in patient's care documentation, ... Minutes Charges/Coding Visit Charges Inpatient E&M: 37047 Subs Hosp L2
--- NOTE | 2025-02-05 10:19 | CASEMGMT ---
Social Work SW assisted the patient with completing a POA. A copy was put in the patients chart. VIRGIL Thompson
--- NOTE | 2025-02-05 10:37 | PCM.DC.SUM ---
Providers Date of Admission: 02/04/25 Primary Care Physician: Dr. Naomi Whyte, DO Reason For Visit: COPD EXACERBATION W/ HYPOXIA Diagnosis Discharge Diagnosis (1) Acute exacerbation of chronic obstructive pulmonary disease: Status: Chronic Code(s): J44.1 - Chronic obstructive pulmonary disease with (acute) exacerbation Plan Patient is a 70-year-old female admitted with progressive shortness of breath diagnosed with an exacerbation of asthma/COPD admitted to a monitored bed where patient is currently being managed 1. Acute hypoxia ? Secondary to combination of asthma and COPD exacerbation. Moderate centrilobular emphysema. No airspace consolidation/edema or pleural effusion. Patient started on bronchodilator treatment, systemic steroid as well as antibiotic therapy. Patient placed on oxygen titrated to keep saturation greater than 90. 2. Obstructive sleep apnea ? Consistent use of PAP therapy encouraged 3. Class II obesity with BMI of 35.6 ? Complicating care weight loss advised 4. Anxiety disorder ? Patient is on lorazepam twice daily as needed 5. Nonobstructive coronary artery disease ? Patient is on clopidogrel 6. Dyslipidemia ? Patient apparently did not tolerate statin therapy due to significant CAD 7. DVT prophylaxis ? On enoxaparin Patient was expected to stay at least 2 midnights however given the rapid improvement in her clinical condition decision was made to discharge patient a day following her admission. Medications at Discharge Home Medications clopidogrel 75 mg tablet 75 mg PO DAILY 10/23/15 spacer #1 ea 07/29/19 Disability Placard #1 ea 01/04/21 estradiol 0.025 mg/24 hr weekly transdermal patch 1 patch transdermal QWEEK 04/20/23 mepolizumab 100 mg/mL subcutaneous auto-injector (Nucala) 100 mg subcut Q4W 01/28/24 albuterol sulfate 90 mcg/actuation aerosol inhaler 2 puff inhalation Q4H PRN shortness of breath or wheezing #8.5 grams 09/10/24 latanoprost 0.005 % eye drops 1 drp ophthalmic (eye) QHS 09/10/24 lorazepam 1 mg tablet 1 mg PO BID PRN anxiety 09/10/24 albuterol sulfate 2.5 mg/3 mL (0.083 %) solution for nebulization 2.5 mg (3 mL) inhalation Q4H PRN #120 vials 11/06/24 fluticasone fur. 100 mcg-umeclid 62.5 mcg-vilant 25 mcg inhalat.powder (Trelegy Ellipta) 1 inh inhalation DAILY #3 ea 01/20/25 azithromycin 500 mg tablet (Zithromax) 500 mg PO DAILY 3 days #3 tabs 02/05/25 cefdinir 300 mg capsule 300 mg PO BID #10 caps 02/05/25 fluvoxamine 100 mg tablet 100 mg PO DAILY depression 02/05/25 guaifenesin 600 mg tablet, extended release 12 hr (Mucinex) 1,200 mg (2 x 600 mg) PO BID 10 days #40 tabs 02/05/25 prednisone 20 mg tablet 20 mg PO BID 7 days #14 tabs 02/05/25 Hospital Course Summary of Care Provided Minutes Spent on Discharge: 32 Physical Exam Narrative GENERAL: cooperative HEENT: Atraumatic; normocephalic EYES; Anicteric, Normal Conjunctiva NECK; supple, normal thyroid, RESPIRATORY: Diminished to auscultation, no wheezes CARDIOVASCULAR: Regular S1 S2, GI: soft, normoactive bowel sounds, : No Renal angle tenderness; EXTREMITIES: No edema, no clubbing, MUSCULOSKELETAL: no muscle wasting NEURO: Awake; no lateralizing signs. SKIN: No Rash PSYCH; Flat affect Weight / BMI Weight Weight: 91.2 kg Body Mass Index (BMI) 35.6 ABG / Lab / Microbiology Data 02/05/25 05:10 02/05/25 05:10 Laboratory: Laboratory Results - last 24 hr 02/04/25 12:55: WBC 6.3, RBC 4.78, Hgb 14.0, Hct 41.2, MCV 86.2, MCH 29.3, MCHC 34.0, RDW Std Deviation 42.0, RDW Coeff of Grace 13.4, Plt Count 338, MPV 9.4, Immature Gran % (Auto) 0.800, Neut % (Auto) 63.8, Lymph % (Auto) 22.0, [place] % (Auto) 10.8 H, Eos % (Auto) 1.8, Baso % (Auto) 0.8, Absolute Neuts (auto) 4.0, Absolute Lymphs (auto) 1.38, Nucleated RBC % 0, Sodium 139, Potassium 3.6, Chloride 105, Carbon Dioxide 18.9 L, Anion Gap 16 H, BUN 5, Creatinine 0.81, Estim Creat Clear Calc 67.74, Est GFR (MDRD) Non-Af 78, BUN/Creatinine Ratio 6.6 L, Glucose 121 H, Lactic Acid 1.5, Calcium 9.6, Troponin T High Sens 8, NT pro BNP II 57 02/04/25 15:00: Troponin T Hi Sens 2 Hr 8 02/04/25 15:32: Procalcitonin 0.05 02/04/25 17:34: Troponin T Hi Sens 4Hr 14 02/05/25 05:10: WBC 3.4 L, RBC 4.55, Hgb 13.0, Hct 38.9, MCV 85.5, MCH 28.6, MCHC 33.4, RDW Std Deviation 42.1, RDW Coeff of Grace 13.4, Plt Count 362, MPV 9.5, Sodium 138, Potassium 3.9, Chloride 107, Carbon Dioxide 18.7 L, Anion Gap 13, BUN 8, Creatinine 0.74, Estim Creat Clear Calc 70.16, Est GFR (MDRD) Non-Af 87, BUN/Creatinine Ratio 10.4, Glucose 183 H, Calcium 9.1 Microbiology: Microbiology 02/04/25 17:10 Mucosa - Nasopharyngeal Respiratory Panel (PCR) - Final 02/04/25 13:07 Mucosa - Nose SARS-CoV-2, Influenza & RSV (PCR) - Final Radiography Diagnostic Testing: Radiology Impression Chest X-Ray 02/04/25 12:57 IMPRESSION: No Acute Findings. Reading Location: [facility] Chest CTA 02/04/25 16:10 IMPRESSION: No acute intrathoracic abnormality. No central pulmonary emboli. Inadequate evaluation of the segmental-subsegmental pulmonary arterial branches due to significant respiratory motion. Moderate centrilobular emphysema. No airspace consolidation/edema or pleural effusion. Reading Location: [id number] D/C Instructions Discharge Activity: Return to Normal Activity Call your doctor if you observe: Fever of 101 or Higher, Shortness of breath, Fainting spells and Chest pain DC O2, CPAP, BIPAP Needs Home O2 Discharge instructions: No DC home with Oxygen: No Meaningful Use Info Meaningful Use Meaningful Use Diagnoses (Choose all that apply): None applicable Discharge Plan Admission Admit Date/Time: 02/04/25 15:08 Attending Provider: Vaibhav Cardenas Primary Care Provider: Naomi Whyte Consulting Providers: Amandeep Montalvo Discharge Orders/Prescriptions Prescriptions: New cefdinir 300 mg capsule 300 mg PO BID Qty: 10 0RF guaifenesin [Mucinex] 600 mg tablet extended release 12hr 1,200 mg PO BID 10 Days Qty: 40 0RF prednisone 20 mg tablet 20 mg PO BID 7 Days Qty: 14 0RF azithromycin [Zithromax] 500 mg tablet 500 mg PO DAILY 3 Days Qty: 3 0RF Continued (DME) spacer See Rx Instructions .Route .MEDSUPPLY Qty: 1 0RF Rx Instructions: As directed (DME) Disability Placard See Rx Instructions .Route .MEDSUPPLY Qty: 1 0RF Rx Instructions: expires 12/10/2025 estradiol 0.025 mg/24 hr patch weekly 1 patch transdermal QWEEK Patient Comments: applied on Sundays Nucala 100 mg/mL auto-injector 100 mg subcut Q4W Patient Comments: Due Feb 16 lorazepam 1 mg tablet 1 mg PO BID PRN (Reason: anxiety) latanoprost 0.005 % drops 1 drp ophthalmic (eye) QHS albuterol sulfate 90 mcg/actuation HFA aerosol inhaler 2 puff inhalation Q4H PRN (Reason: shortness of breath or wheezing) Qty: 8.5 6RF Rx Instructions: administer with spacer Trelegy Ellipta 100-62.5-25 mcg blister with device 1 inh inhalation DAILY Qty: 3 3RF clopidogrel 75 MG tablet 75 mg PO DAILY fluvoxamine 100 mg tablet 100 mg PO DAILY Patient Comments: pt takes in evening albuterol sulfate 2.5 mg /3 mL (0.083 %) solution for nebulization 2.5 mg INHALATION Q4H PRN Qty: 120 6RF Rx Instructions: Use q4 hours and PRN for wheezing Referrals / Follow Up: Anthony Jalloh DO [Med Staff - Active Staff, Pulmonary Medicine] - Within 2 Weeks Naomi Whyte DO [Primary Care Provider, Family Practice] - Within 2 Weeks Disposition Disposition (needs filled in before D/C Order can be placed): Home, Self Care Charges/Coding Visit Charges Inpatient E&M: 76326 Disch Hosp >30min
[2025-02-05] MEDS: Azithromycin 500 MG in 0.9% Normal Saline (250mL Bag) 250 ML 250 MG IV (11:14)
--- NOTE | 2025-02-05 11:15 | CASEMGMT ---
RN?CM?ASSESSMENT ? RN?CM?to room to meet with patient for initial transition planning/care coordination?assessment.?RN?CM?introduced self and role at [facility].? Pt voices understanding and consents to?assessment?at this time.? Pt resting in bed in no distress at this time.? Pt is A/O at this time and answers all questions appropriately.?? Care providers, pharmacy, and demographics verified/updated at this time. ? Strata: 2 PCP: Dr Whyte Specialists: Cathie De Jesus, DEAN-pulmonology [facility]erred [facility]acy: [facility] Insurance: [facility], Ici MontreuilP Prescription Benefit:?yes LNOK: , Guilel. Daughter, Precious. Living Arrangements: Lives w/ in mobile home w/stair lift. Independent. Transportation:?Pt states drives self and states no transportation concerns at this time.? also drives. DME: ?States has the following DME:?CPAP, nebulizer, pulse ox. No home O2. Verbal review provided of local DME co's. If pt qualifies for home O2, [facility] is her 1st preference. Pt states no need for further DME at this time.? HHC/SNF: No hx of either. No needs identified. ? Pt wishes to return home and states has no concerns with going home at time of discharge. CM?to follow for home oxygen needs and any further discharge planning/needs.? Pt voices no further concerns/needs at this time.? Advised pt to ask for?CM?if any further questions/concerns/needs arise.? Voices understanding. ? PLAN:??Home Follow for possible home O2. ? Minesh BSN?RN?CM ? ?
--- NOTE | 2025-02-05 12:05 | PHA.DC_ITS ---
Pharmacy DC Med Counseling
--- NOTE | 2025-02-05 12:05 | PHA.DC.COU.R ---
Pharmacy [facility] has performed discharge medication counseling for this patient. The patient was counseled on the following discharge medications and changes in medications for homegoing review. - Azithromycin 500 mg tablet, Cefdinir 300 mg capsule, Prednisone 20 mg tablet, Mucinex 600 mg tablet The Reason for Use, instructions for use, and potential side effects were reviewed for all new medications. The patient's questions regarding all of their medications were answered. The patient was able to verbally demonstrate an understanding of their discharge medications. Medications at Discharge Home Medications clopidogrel 75 mg tablet 75 mg PO DAILY anti platelet 10/23/15 spacer #1 ea 07/29/19 Disability Placard #1 ea 01/04/21 estradiol 0.025 mg/24 hr weekly transdermal patch 1 patch transdermal QWEEK hormones 04/20/23 mepolizumab 100 mg/mL subcutaneous auto-injector (Nucala) 100 mg subcut Q4W breathing 01/28/24 albuterol sulfate 90 mcg/actuation aerosol inhaler 2 puff inhalation Q4H PRN shortness of breath or wheezing #8.5 grams 09/10/24 latanoprost 0.005 % eye drops 1 drp ophthalmic (eye) Q eye health 09/10/24 lorazepam 1 mg tablet 1 mg PO BID PRN anxiety 09/10/24 albuterol sulfate 2.5 mg/3 mL (0.083 %) solution for nebulization 2.5 mg (3 mL) inhalation Q4H PRN #120 vials 11/06/24 fluticasone fur. 100 mcg-umeclid 62.5 mcg-vilant 25 mcg inhalat.powder (Trelegy Ellipta) 1 inh inhalation DAILY breathing #3 ea 01/20/25 azithromycin 500 mg tablet (Zithromax) 500 mg PO DAILY 3 days #3 tabs 02/05/25 cefdinir 300 mg capsule 300 mg PO BID #10 caps 02/05/25 fluvoxamine 100 mg tablet 100 mg PO DAILY depression 02/05/25 guaifenesin 600 mg tablet, extended release 12 hr (Mucinex) 1,200 mg (2 x 600 mg) PO BID 10 days #40 tabs 02/05/25 prednisone 20 mg tablet 20 mg PO BID 7 days #14 tabs 02/05/25
--- NOTE | 2025-02-05 15:31 | CASEMGMT ---
Patient has order for discharge. RN CM in to discuss needs at discharge. Patient denies needs or help at discharge. Patient had no further questions or concerns.
== END 2025-02-05 15:38 | disposition home or self-care (01) | DRG 191 ==
LOC: ED 15:12 → PCU 16:14
PROVIDERS: Admitting Provider Hospitalist; Emergency Provider Emergency Medicine; PCP Family Medicine; Visit Provider Internal Medicine
DX: J44.1 Chronic obstructive pulmonary disease with (acute) exacerbation (principal); J45.901 Unspecified asthma with (acute) exacerbation; Z66 Do not resuscitate; F32.A Depression, unspecified; E66.812 Obesity, class 2; E78.5 Hyperlipidemia, unspecified; I25.10 Atherosclerotic heart disease of native coronary artery without angina pectoris; G47.33 Obstructive sleep apnea (adult) (pediatric); F41.9 Anxiety disorder, unspecified; Z79.51 Long term (current) use of inhaled steroids; Z79.02 Long term (current) use of antithrombotics/antiplatelets; Z68.35 Body mass index [BMI] 35.0-35.9, adult; Z82.5 Family history of asthma and other chronic lower respiratory diseases; Z87.891 Personal history of nicotine dependence; Z86.16 Personal history of COVID-19
CPT/HCPCS: 36415; 71045; 71275; 74018; 78815; 80048; 83605; 83880; 84145; 84484; 85025; 85027; 87040; 87631; 87633; 93005; 94640; 94668; 99285; A9552; Q9967; A4216

== ENCOUNTER 2025-02-23 13:58 | Outpatient (CLI) | payer MEDICARE, OTHER, SELFPAY ==
[2025-02-23 14:17] VITALS: BP 130/74; PULSE 67; RESP 16; TEMP 35.9; O2SAT 96
== END 2025-02-23 23:59 | disposition home or self-care (01) ==
LOC: MEDOUTP 13:58
PROVIDERS: PCP Family Medicine; Referring Provider Nurse Practitioner Acute Care; Visit Provider Nurse Practitioner Acute Care
DX: J45.50 Severe persistent asthma, uncomplicated (principal)
CPT/HCPCS: 96372; J2182

== ENCOUNTER 2025-04-03 05:40 | Observation (INO) | payer MEDICARE, OTHER, SELFPAY ==
[2025-04-03] VITALS (12 sets, daily range): BP systolic 108–160; BP diastolic 50–82; PULSE 82–120; RESP 18–22; TEMP 36.6–37; O2SAT 91–96; BMI 36.1; BMI 35.4
--- NOTE | 2025-04-03 05:48 | CT_ITS ---
PROCEDURE: CTA CHEST W/WO CONTRAST 04/03/2025 REASON FOR EXAM: CHEST PAIN SHORTNESS OF BREATH TECHNIQUE: Procedure Code: [id number] Modality: CT Procedure: CTA CHEST W/WO CONTRAST Multiplanar Sagittal and Coronal images were obtained. CONTRAST: Isovue 370 VOLUME: 100 mL One or more dose reduction techniques were used (e.g., Automated exposure control, adjustment of the mA and/or kV according to patient size, use of iterative reconstruction technique). RADIATION DOSE SUMMARY: CTDlvol: mGy DLP: 382 mGycm COMPARISON: Comparison was done with the 01-19-2025 and 12-21-2022 CT scan of the chest examination is # of known CTs in the past 12 months: Number of known CT scans 3 # of known Cardiac Nuclear Medicine Studies in the past 12 months: Noncardiac nuclear medicine scans 0 FINDINGS: Thoracic Aorta: The aorta is of normal caliber and shows no aneurysm, pseudoaneurysm, nor dissection. There is slight calcified atheromatous plaque burden throughout the aorta. Heart: Coronary artery calcifications are noted. The heart is of normal size. Pulmonary Vessels: Pulmonary vessels are normal. Hardware: None Lymph nodes: There are slightly prominent lymph nodes at the subcarinal and distal left paratracheal regions. The dominant lymph node is 19 by 10 mm and subcarinal. This lymphadenopathy is unchanged from the 01-19-2025 CT examination but is more prominent than on the 12-21-2022 CT examination. Lungs and Airways: There are centrilobular emphysematous changes throughout both lungs, most pronounced at the upper lung zones. Pleura: There is slight peribronchial cuffing evident throughout the basilar segments of the lower lobes. Upper Abdomen: Unremarkable. Bones: Unremarkable. Other: There is a small sliding-type esophageal hiatal hernia. CT/CTA Chest W/WO Contrast IMPRESSION: Slight superior mediastinal adenopathy. This finding should be re-evaluated wi th CT at 6 months from this examination. Reading Location: [id number]
--- NOTE | 2025-04-03 05:48 | EKG12_ITS ---
Test Reason : CP Blood Pressure : */* mmHG Vent. Rate : 107 BPM Atrial Rate : 107 BPM P-R Int : 154 ms QRS Dur : 74 ms QT Int : 332 ms P-R-T Axes : 64 72 39 degrees QTcB Int : 443 ms Sinus tachycardia Cannot rule out Inferior infarct , age undetermined Abnormal ECG Confirmed by Vaibhav Elkins ([id number]), general expeditor PHAM MOTLEY ([id number]) on 04/10/2025 7:11:28 AM Referred By: Confirmed By: Vaibhav Elkins
--- OUTSIDE RECORDS SUMMARY | 2025-04-03 05:53 | XMS RPT_ITS | CCD ---
Author Organization [facility] Care Team Providers Care Flooring Helper Name Role Phone Yensho RIVET HEATER, Brisa A Unavailable Unavailab le Marie RIVET HEATER, Kristen Anabel Unavailable Unavaila ble Yensho RIVET HEATER, Brisa A Unavailable Unavailab le Tod RIVET HEATER, Leilani N Unavailable Unavailab le Tod RIVET HEATER, Leilani N Unavailable Unavailab le Cogar RIVET HEATER, Mariel N Unavailable Cogar RIVET HEATER, Mariel N Unavailable Dr. Kamilah Patel Primary Care Provider [phone] Dr. Kamilah Patel Referring Provider SWETHA Caballero Attending Provider SWETHA Vargas Attending Provider Neal EGGS INSPECTOR, EGGS INSPECTOR-C Cathie Attending Provider Dr. Kamilah Patel Primary Care Provider [phone] Dr. Kamilah Patel Referring Provider [phone] Neal EGGS INSPECTOR, EGGS INSPECTOR-C Cathie Referring Provider Dr. Kamilah Patel Primary Care Provider [phone] Kamilah Patel Primary Care Provider [phone] Dr. Kamilah Patel Referring Provider [phone] Dr. Kamilah Patel Referring Provider Neal EGGS INSPECTOR, EGGS INSPECTOR-C Cathie Attending Provider [phone] Dr. Kamilah aPtel Primary Care Provider [phone] Kamilah Patel Referring Provider Dr. Anthony Jalloh Attending Provider Neal EGGS INSPECTOR, EGGS INSPECTOR-C Cathie Attending Provider [phone] SWETHA Caballero Attending Provider Dr. Kamilah Patel Primary Care Provider Dr. Kamilah Patel Referring Provider Dr. Kamilah Patel Primary Care Provider Dr. Kamilah Patel Referring Provider Neal EGGS INSPECTOR, EGGS INSPECTOR-C Cathie Attending Provider [phone] SWETHA Caballero Attending Provider Dr. Naomi Whyte DO Primary Care Provider Dr. Naomi Whyte DO Referring Provider [phone] Neal MORAN-CCathie Attending Provider Neal MORAN-CCathie Referring Provider Pato BYRNES Dr. Naomi Primary Care Provider [phone] Neal EGGS INSPECTOR-C, Cathie Attending Provider De Jesus EGGS INSPECTOR-C, Cathie Referring Provider Pato BYRNES, Dr. Salgado Referring Provider Pato BYRNES, Dr. Salgado Attending Provider Amanda MENDEZ, Dr. Ortiz Attending Provider Amanda MENDEZ, Dr. Ortiz Referring Provider Amanda MENDEZ, Dr. Ortiz Other Provider [phone] Hamilton MENDEZ, Dr. Hernandez Attending Provider [phone] Pato BYRNES, Dr. Salgado Primary Care Provider [phone] Neal EGGS INSPECTOR-C, Cathie Attending Provider Neal EGGS INSPECTOR-C, Cathie Referring Provider Pato BYRNES, Dr. Salgado Primary Care Physician Neal EGGS INSPECTOR-C, Cathie Attending Physician Pato BYRNES, Dr. Salgado Attending Physician Amanda MENDEZ, Dr. Ortiz Attending Physician [phone] Amanda MENDEZ, Dr. Ortiz Nurse Practitioner Hamilton MENDEZ, Dr. Hernandez Attending Physician [phone] Len MENDEZ, Dr. Booth Emergency Department Physician Pato BYRNES, Dr. Salgado Primary Care Physician Neal EGGS INSPECTOR-C, Cathie Attending Physician Neal EGGS INSPECTOR-C, Cathie Referring Provider Pato BYRNES, Dr. Salgado Referring Provider Len MENDEZ, Dr. Booth Attending Physician [phone] De Jesus EGGS INSPECTOR, Cathie Referring Unavailable Malys, Naomi Primary Care Unavailable De Jesus EGGS INSPECTOR, Cathie Attending Unavailable De Jesus EGGS INSPECTOR, Cathie Referring Unavailable Malys, Naomi Primary Care Unavailable De Jesus EGGS INSPECTOR, Cathie Attending Unavailable De Jesus EGGS INSPECTOR, Cathie Attending Unavailable Malys, Naomi Primary Care Unavailable De Jesus EGGS INSPECTOR, Cathie Referring Unavailable Malys, Naomi Attending Unavailable Malys, Naomi Primary Care Unavailable Malys, Naomi Primary Care Unavailable De Jesus EGGS INSPECTOR, Cathie Attending Unavailable De Jesus EGGS INSPECTOR, Cathie Referring Unavailable Malys, Naomi Primary Care Unavailable De Jesus EGGS INSPECTOR, Cathie Attending Unavailable De Jesus EGGS INSPECTOR, Cathie Referring Unavailable Malys, Naomi Attending Unavailable Malys, Naomi Referring Unavailable Malys, Naomi Primary Care Unavailable Malys, Naomi Primary Care Unavailable De Jesus EGGS INSPECTOR, Cathie Referring Unavailable De Jesus EGGS INSPECTOR, Cathie Attending Unavailable Vaibhav Cardenas Attending Unavailable Malys, Naomi Primary Care Unavailable Katia, Amandeep Admitting Unavailable Amandeep Montalvo Consulting Unavailable Malys, Naomi Primary Care Unavailable De Jesus EGGS INSPECTOR, Cathie Referring Unavailable De Jesus EGGS INSPECTOR, Cathie Attending Unavailable Malys, Naomi Referring Unavailable Malys, Naomi Primary Care Unavailable De Jesus EGGS INSPECTOR, Cathie Attending Unavailable Malys, Naomi Primary Care Unavailable De Jesus EGGS INSPECTOR, Cathie Referring Unavailable De Jesus EGGS INSPECTOR, Cathie Attending Unavailable Malys, Naomi Referring Unavailable Malys, Naomi Primary Care Unavailable De Jesus EGGS INSPECTOR, Cathie Attending Unavailable Malys, Naomi Referring Unavailable Malys, Naomi Primary Care Unavailable De Jesus EGGS INSPECTOR, Cathie Attending Unavailable Vaibhav Cardenas Attending Unavailable Malys, Naomi Primary Care Unavailable eller, Amandeep Consulting Unavailable eller, Amandeep Admitting Unavailable Kitgarethe, Vaibhav Consulting Unavailable Malys, Naomi Primary Care Unavailable De Jesus EGGS INSPECTOR, Cathie Referring Unavailable De Jesus EGGS INSPECTOR, Cathie Attending Unavailable Malys, Naomi Primary Care Unavailable De Jesus EGGS INSPECTOR, Cathie Referring Unavailable De Jesus EGGS INSPECTOR, Cathie Attending Unavailable Malys, Naomi Attending Unavailable Malys, Naomi Referring Unavailable Malys, Naomi Primary Care Unavailable Malys, Naomi Primary Care Unavailable De Jesus EGGS INSPECTOR, Cathie Attending Unavailable De Jesus EGGS INSPECTOR, Cathie Referring Unavailable De Jesus EGGS INSPECTOR, Cathie Referring Unavailable Malys, Naomi Primary Care Unavailable De Jesus EGGS INSPECTOR, Cathie Attending Unavailable De Jesus EGGS INSPECTOR, Cathie Referring Unavailable Malys, Naomi Primary Care Unavailable De Jesus EGGS INSPECTOR, Cathie Attending Unavailable Amandeep Montalvo Attending Unavailable Mary Villasenor Attending Unavailable Malys, Naomi Primary Care Unavailable Angel Patel Consulting Unavailable Angel Patel Referring Unavailable De Jesus EGGS INSPECTOR, Cathie Referring Unavailable Malys, Naomi Primary Care Unavailable De Jesus EGGS INSPECTOR, Cathie Attending Unavailable De Jesus EGGS INSPECTOR, Cathie Referring Unavailable Malys, Naomi Primary Care Unavailable De Jesus EGGS INSPECTOR, Cathie Attending Unavailable Malys, Naomi Primary Care Unavailable Angel Patel Attending Unavailable Angel Patel Referring Unavailable Pato Naomi Primary Care Unavailable Neal EGGS INSPECTOR, Cathie Referring Unavailable Neal EGGS INSPECTOR, Cathie Attending Unavailable YfnbayronNaomi Primary Care Unavailable Leobardo Harrington Attending Unavailable YfnbayronNaomi Primary Care Unavailable Neal EGGS INSPECTOR, Cathie Referring Unavailable Neal EGGS INSPECTOR, Cathie Attending Unavailable Allergies Allergy Classification Reported Allergen(s) Allergy Type Date of Onset Reaction(s) Facility (14 sources) codeine drug allergy 6 vomitting and itching [facility] Work Phone: (14 sources) morphine drug allergy 6 swellling, turns red [facility] Work Phone: (20 sources) Codeine Drug Allergy 2 Itching [facility] (20 sources) Doxycycline Drug Allergy 2 severe headaches and muscle spasms to the chest [facility] (20 sources) Morphine Drug Allergy 2 Itching [facility] (1 source) Codeine Drug Allergy 5 [facility] Repository (1 source) Doxycycline Drug Allergy 5 [facility] Repository (1 source) Morphine Drug Allergy 5 [facility] Repository Medications Current Medications Medication Drug Class(es) Dates Sig (Normalized) Sig (Original) clopidogrel 75 mg oral tablet (20 sources) P2Y12 Platelet Inhibitor Start: 10-23-2015 End: 03-12-2017 take 1 tablet by mouth once daily Disability Placard (20 sources) Start: 01-04-2021 Disability Placard Active 0 .Route .MEDSUPPLY 1 0 January 04, 2021 11:30am chronic respiratory distress J96.10 expires 12/10/2025 Start: 01-04-2021 Disability Jason card Active 0 .Route .MEDSUPPLY January 04, 2021 10:30am expires 12/10/2025 Start: 01-04-2021 Disability Jason card Active 0 .Route .MEDSUPPLY January 04, 2021 11:30am expires 12/10/2025 Start: [...] 2020 12:03pm expires 11/23/2025 168 hr estradiol 0.50167 mg/ hr transdermal system (15 sources) Estrogen Start: 04-20-2023 Start: 04-20-2023 apply 1 dose transde rmal route every week Estradiol Active 1 PATCH TD EVERY WEEK April 20, 2023 1:00am Kogvqzaftuc-Tgvwzthjd-Gjmmot er (20 sources) Anticholinergic, Corticosteroid, beta2-Adrenergic Agonist Start: 01-20-2025 Start: 12-25-2024 End: 01-20-2025 Iveousnrktx-Jjlifbwrz-Jmakdz er (Trelegy Ellipta) 100-62.5-25 mcg blister with device Discontinued 1 NMA INHALATION DAILY 60 December 25, 2024 11:28am January 20, 2025 2:33pm Start: 04-20-2023 End: 12-25-2024 Mrgrjfxprhy-Jyylwvume-Labwdf er (Trelegy Ellipta) 100-62.5-25 mcg blister with device Discontinued 1 NMA INHALATION DAILY April 20, 2023 1:00am December 25, 2024 11:30am Start: 04-20-2023 Fluticasone-Um eclidin-Vilanter (Trelegy Ellipta) 100-62.5-25 mcg blister with device Active 1 NMA INHALATION DAILY April 20, 2023 1:00am Complies with drug therapy Start: 04-20-2023 Fluticasone-Um eclidin-Vilanter (Trelegy Ellipta) 100-62.5-25 [...] 20, 2023 12:00am Start: 08-01-2022 End: 11-02-2022 Djmypoqzhrz-Tvyiiejmr-Xqmipc er (Trelegy Ellipta) 100-62.5-25 mcg blister with device Discontinued 1 NMA INHALATION daily 60 August 01, 2022 8:27am November 02, 2022 3:14pm Chronic obstructive pulmonary disease, unspecified administer at approximately the same time(s) each day Start: 08-01-2022 End: 11-02-2022 Gwggvcbfbhn-Vehvtorsm-Ybhkuh er (Trelegy Ellipta) 100-62.5-25 mcg blister with device Discontinued 1 NMA INHALATION daily 60 August 01, 2022 8:27am November 02, 2022 3:14pm administer at approximately the same time(s) each day Start: 08-01-2022 End: 11-02-2022 Ubdfgekdwph-Hwenhjvlq-Nlihwo er (Trelegy Ellipta) 100-62.5-25 mcg blister with device Discontinued 1 INH INHALATION daily 60 August 01, 2022 7:27am November 02, 2022 2:14pm administer at approximately the same time(s) each day Start: 08-01-2022 End: 11-02-2022 Lllqscwbxhm-Jjhxxpyxj-Qhxuld er (Trelegy Ellipta) 100-62.5-25 mcg blister with device Discontinued 1 INH INHALATION daily 60 August 01, 2022 8:27am November 02, 2022 3:14pm administer at approximately the same time(s) each day Start: 08-01-2022 Fluticasone-Um eclidin-Vilanter (Trelegy Ellipta) 100-62.5-25 mcg blister with device Active 1 INH INHALATION daily 60 August 01, 2022 8:27am administer at approximately the same time(s) each day Start: 01-30-2022 End: 08-01-2022 Noluhuofgbs-Kyfnoulip-Kspejr er (Trelegy Ellipta) 100-62.5-25 mcg blister with device Discontinued 1 NMA INHALATION daily 60 January 30, 2022 8:32am August 01, 2022 8:27am Chronic obstructive pulmonary disease, unspecified administer at approximately the same time(s) each day Start: 01-30-2022 End: 08-01-2022 Tqfdcxblfsi-Yhliqylsm-Auoeey er (Trelegy Ellipta) 100-62.5-25 mcg blister with device Discontinued 1 NMA INHALATION daily January 30, 2022 8:32am August 01, 2022 8:27am administer at approximately the same time(s) each day Start: 01-30-2022 End: 08-01-2022 Vdpchporyvc-Cuegkkrsg-Gpgvxq er (Trelegy Ellipta) 100-62.5-25 mcg blister with device Discontinued 1 INH INHALATION daily 60 January 30, 2022 7:32am August 01, 2022 7:27am administer at approximately the same time(s) each day Start: 01-30-2022 End: 08-01-2022 Dxsnqqxrdrs-Fleporlnw-Irtfsm er (Trelegy Ellipta) 100-62.5-25 mcg blister with [...] time(s) each day Start: 07-07-2021 End: 01-30-2022 Vjnxnoewcpy-Ijzivhwmx-Ascttt er (Trelegy Ellipta) 100-62.5-25 mcg blister with device Discontinued 1 NMA INHALATION daily 60 July 07, 2021 10:35am January 30, 2022 8:32am Chronic obstructive pulmonary disease, unspecified administer at approximately the same time(s) each day Start: 07-07-2021 End: 01-30-2022 Uxdmffhdidb-Ukxqdbwym-Gwvnxu er (Trelegy Ellipta) 100-62.5-25 mcg blister with device Discontinued 1 NMA INHALATION daily July 07, 2021 10:35am January 30, 2022 8:32am administer at approximately the same time(s) each day Start: 07-07-2021 End: 01-30-2022 Dwjwauqaohl-Ogrwqjvlu-Umjhqm er (Trelegy Ellipta) 100-62.5-25 mcg blister with device Discontinued 1 INH INHALATION daily 60 July 07, 2021 10:35am January 30, 2022 8:32am administer at approximately the same time(s) each day Start: 07-07-2021 End: 01-30-2022 Kgqrsgfygoq-Fhrxkesxf-Bpwagu er (Trelegy Ellipta) 100-62.5-25 mcg blister with device Discontinued 1 INH INHALATION daily 60 July 07, 2021 9:35am January 30, 2022 7:32am administer at approximately the same time(s) each day Start: 07-07-2021 Fluticasone-Um eclidin-Vilanter (Trelegy Ellipta) 100-62.5-25 mcg blister with device Active 1 INH INHALATION daily 60 July 07, 2021 10:35am administer at approximately the same time(s) each day Start: 01-04-2021 End: 07-07-2021 Meotfijdxdo-Iovdifozc-Dzbzbk er (Trelegy Ellipta) 100-62.5-25 mcg blister with device Discontinued 1 NMA INHALATION daily 60 January 04, 2021 11:31am July 07, 2021 10:35am Chronic obstructive pulmonary disease, unspecified administer at approximately the same time(s) each day Start: 01-04-2021 End: 07-07-2021 Ligxhsrngfp-Taawaeujt-Brvyzq er (Trelegy Ellipta) 100-62.5-25 mcg blister with device Discontinued 1 NMA INHALATION daily 60 January 04, 2021 11:31am July 07, 2021 10:35am administer at approximately the same time(s) each day Start: 01-04-2021 End: 07-07-2021 Yzpcglcgcai-Vofalrjhi-Cvyvol er (Trelegy Ellipta) 100-62.5-25 mcg blister with device Discontinued 1 INH INHALATION daily 60 January 04, 2021 10:31am July 07, 2021 9:35am administer at approximately the same time(s) each day Start: 01-04-2021 End: 07-07-2021 Pnlkbdngvpj-Oxeaktkzf-Bmkdvq er (Trelegy Ellipta) 100-62.5-25 mcg blister with device Discontinued 1 INH INHALATION daily 60 January 04, 2021 11:31am July 07, 2021 10:35am administer at approximately the same time(s) each day Start: 10-15-2020 End: 01-04-2021 Wkharoqtoii-Fwuvebuxn-Agtqpv er (Trelegy Ellipta) 100-62.5-25 mcg blister with device Discontinued 1 NMA INHALATION daily 60 3 October 15, 2020 2:54pm January 04, 2021 11:33am Chronic obstructive pulmonary disease, unspecified administer at approximately the same time(s) each day Start: 10-15-2020 End: 01-04-2021 Yxqkipdoxdt-Ainfnblhc-Tezfpv er (Trelegy Ellipta) 100-62.5-25 mcg blister with device Discontinued 1 NMA INHALATION daily 60 October 15, 2020 2:54pm January 04, 2021 11:33am administer at approximately the same time(s) each day Start: 10-15-2020 End: 01-04-2021 Arksjeltdie-Rurszkdyy-Uxqjrl er (Trelegy Ellipta) 100-62.5-25 mcg blister with device Discontinued 1 INH INHALATION daily 60 October 15, 2020 1:54pm January 04, 2021 10:33am administer at approximately the same time(s) each day Start: 10-15-2020 End: 01-04-2021 Wsdtpnluxwx-Yafvtajzd-Nwmgbb er (Trelegy Ellipta) 100-62.5-25 mcg blister with device Discontinued 1 INH INHALATION daily 60 October 15, 2020 2:54pm January 04, 2021 11:33am administer at approximately the same time(s) each day Start: 10-15-2020 End: 10-15-2020 Hrghzgjrsqo-Fujynnvvl-Jztgny er (Trelegy Ellipta) 100-62.5-25 mcg blister with device Discontinued 1 NMA INHALATION daily 60 3 October 15, 2020 2:27pm October 15, 2020 2:54pm Chronic obstructive pulmonary disease, unspecified administer at approximately the same time(s) each day Start: 10-15-2020 End: 10-15-2020 Sopzxmkafsw-Qbnabdqwq-Eshvub er (Trelegy Ellipta) 100-62.5-25 mcg blister with device Discontinued 1 NMA INHALATION daily 60 October 15, 2020 2:27pm October 15, 2020 2:54pm administer at approximately the same time(s) each day Start: 10-15-2020 End: 10-15-2020 Sgwahqkkifq-Ylvvpbkri-Tsclha er (Trelegy Ellipta) 100-62.5-25 mcg blister with device Discontinued 1 INH INHALATION daily 60 October 15, 2020 1:27pm October 15, 2020 1:54pm administer at approximately the same time(s) each day Start: 10-15-2020 End: 10-15-2020 Zorzismrwhy-Saglembpz-Vsnptu er (Trelegy Ellipta) 100-62.5-25 mcg blister with device Discontinued 1 INH INHALATION daily 60 October 15, 2020 2:27pm October 15, 2020 2:54pm administer at approximately the same time(s) each day Start: 02-16-2020 End: 05-18-2020 Kycncjovjje-Lbmrhiohk-Jrzcey er (Trelegy Ellipta) 100-62.5-25 mcg blister with device Discontinued 1 INH INHALATION daily February 16, 2020 4:13pm May 18, 2020 11:44am administer at approximately the same time(s) each day Start: 02-16-2020 End: 05-18-2020 Jvindecfrwn-Tqwdhtrzo-Mudugi er (Trelegy Ellipta) 100-62.5-25 mcg blister with device Discontinued 1 NMA INHALATION daily 60 February 16, 2020 1:00am May 18, 2020 11:44am Chronic obstructive pulmonary disease, unspecified administer at approximately the same time(s) each day Start: 02-16-2020 End: 05-18-2020 Ifpqhaeffvq-Rnriveshr-Chklkf er (Trelegy Ellipta) 100-62.5-25 mcg blister with device Discontinued 1 NMA INHALATION daily 60 February 16, 2020 1:00am May 18, 2020 11:44am administer at approximately the same time(s) each day Start: 02-16-2020 End: 05-18-2020 Harkonsoksa-Ywjcihwns-Aqaflv er (Trelegy Ellipta) 100-62.5-25 mcg blister with device Discontinued 1 INH INHALATION daily February 16, 2020 12:00am May 18, 2020 10:44am administer at approximately the same time(s) each day Start: 02-16-2020 End: 05-18-2020 Nvudrrwdtan-Gqamxewwk-Kokfpf er (Trelegy Ellipta) 100-62.5-25 mcg blister with device Discontinued 1 INH INHALATION daily February 16, 2020 1:00am May 18, 2020 11:44am administer at approximately the same time(s) each day Start: 10-31-2019 End: 01-23-2020 Nvikqqjejpy-Lmxsqhres-Qehvkd er (Trelegy Ellipta) 100-62.5-25 mcg blister with device Discontinued 1 NMA INHALATION DAILY 1 October 31, 2019 2:30pm January 23, 2020 2:32pm Start: 10-31-2019 End: 01-23-2020 Wlsvonebkau-Lrvaircvt-Kqbmzn er (Trelegy Ellipta) 100-62.5-25 mcg blister with device Discontinued 1 NMA INHALATION DAILY October 31, 2019 2:30pm January 23, 2020 2:32pm Start: 10-31-2019 End: 01-23-2020 Qqxiphcyptw-Xwmzwvoqi-Aeuvpm er (Trelegy Ellipta) 100-62.5-25 mcg blister with device Discontinued 1 INH INHALATION DAILY October 31, 2019 1:30pm January 23, 2020 1:32pm Start: 10-31-2019 End: 01-23-2020 Nbhtgdbmfwn-Owxrawwnn-Zebfmv er (Trelegy Ellipta) 100-62.5-25 mcg blister with device Discontinued 1 INH INHALATION DAILY October 31, 2019 2:30pm January 23, 2020 2:32pm Start: 10-03-2018 End: 10-31-2019 Pzplqfjfprw-Jvdkaxtzs-Ajwdkk er (Trelegy Ellipta) 100-62.5-25 mcg blister with device Discontinued 1 NMA INHALATION DAILY 1 6 October 03, 2018 12:00am October 31, 2019 2:31pm Start: 10-03-2018 End: 10-31-2019 Gyfvkefcumw-Mfesyqtjd-Ylscvo er (Trelegy Ellipta) 100-62.5-25 mcg blister with device Discontinued 1 INH INHALATION DAILY 1 October 03, 2018 12:00am October 31, 2019 2:31pm Start: 09-25-2018 End: 10-03-2018 Vhszsfrnlxq-Jxbsaloqg-Blwvii er (Trelegy Ellipta) 100-62.5-25 mcg blister with device Discontinued 1 NMA INHALATION DAILY 60 September 25, 2018 12:40pm October 03, 2018 1:40pm Start: 09-25-2018 End: 10-03-2018 Esxufiasjoo-Gycthiaqh-Mizwan er (Trelegy Ellipta) 100-62.5-25 mcg blister with device Discontinued 1 NMA INHALATION DAILY 60 September 25, 2018 12:40pm October 03, 2018 1:40pm Start: 09-25-2018 End: 10-03-2018 Ypajmkdorot-Qstamxiaz-Zcchtk er (Trelegy Ellipta) 100-62.5-25 mcg blister with device Discontinued 1 INH INHALATION DAILY 60 September 25, 2018 11:40am October 03, 2018 12:40pm Start: 09-25-2018 End: 10-03-2018 Dktlierpwxa-Fnhlfiazc-Ntdsip er (Trelegy Ellipta) 100-62.5-25 mcg blister with device Discontinued 1 INH INHALATION DAILY 60 September 25, 2018 12:40pm October 03, 2018 1:40pm Start: 08-06-2018 End: 09-25-2018 Xkaafvsngsm-Daavbuddd-Ibyfsp er (Trelegy Ellipta) 100-62.5-25 mcg blister with device Discontinued 1 NMA INHALATION DAILY 28 August 06, 2018 12:00am September 25, 2018 12:41pm Start: 08-06-2018 End: 09-25-2018 Locuawxftoe-Wvkdkqieh-Fbkqsg er (Trelegy Ellipta) 100-62.5-25 mcg blister with device Discontinued 1 INH INHALATION DAILY August 06, 2018 12:00am September 25, 2018 12:41pm latanoprost 0.05 mg/ml ophthalmic solution (10 sources) Prostaglandin Analog Start: 09-10-2024 LORazepam 1 mg oral tablet (20 sources) Benzodiazepine Start: 09-10-2024 take 1 tablet by mouth twice daily as needed for anxiety Start: 01-28-2024 End: 12-24-2024 take 1 tablet by mouth twice daily as needed for anxiety Lorazepam 0.5 mg tablet Discontinued 0.5 mg PO TWICE A DAY as needed for anxiety January 28, 2024 12:00am December 24, 2024 9:19pm 1 ml mepolizumab 100 mg/ml auto-injector (20 sources) Interleukin-5 Antagonist Start: 01-28-2024 Start: 07-07-2021 End: 07-07-2021 inject 100 mg [...] subcutaneous solution Discontinued 100 MG SC ONCE 1 November 29, 2018 10:15am November 29, 2018 [...] 12:00am February 25, 2018 12:52pm As directed HOBGCJB-HLCPSP-BQZHD PERTUSSIS (2 sources) Inactivated Corynebacterium Diphtheriae Vaccine, Inactivated Clostridium Tetani Vaccine Start: 11-22-2015 End: 01-03-2016 ADACEL 5-2-15.5 LF-MCG/0.5 SUSP [place] 1 dose GFXSXEY-MOJKMJ-XWQSN PERTUSSIS [id number] Kristen Marie [employer] HEATER Start: 11-22-2015 ADACEL 5-2-15. 5 LF-MCG/0.5 SUSP [place] 1 dose TXDXJBQ-BIJCXA-LTBVD PERTUSSIS [id number] Brisa Ball [employer] HE[employer] [id number] 200 actuat albuterol 0.09 mg/actuat metered dose [...] INH every 4 hours PRN ALBUTEROL SULFATE [id number] Anthony Jalloh DO Start: 12-02-2015 take 108 ug by inhal ation every four hours as needed PROAIR HFA 108 (90 Base) MCG/ACT AERS INH every 4 hours PRN ALBUTEROL SULFATE [id number] Anthony Jalloh DO Start: 10-23-2015 End: 11-06-2024 take 2.5 mg by inhalation every four hours as needed for wheezing Albuterol Sulfate 2.5 mg /3 mL (0.083 %) solution for nebulization Discontinued 2.5 mg INHALATION EVERY 4 HOURS NEEDED 120 6 October 24, 2017 4:24pm July 07, 2021 [...] INH 1 ampule q4h as needed IPRATROPIUM-ALBUTEROL [id number] Leilani Baron [employer] HE[employer] amoxicillin 875 mg / clavulanate 125 mg [...] One tablet by mouth daily ASPIRIN TBEC [id number] Khai Birmingham MD ASPIRIN TBEC (1 source) Start: 12-30-2015 take 1 tablet by mouth once daily ASPIR-81 TBEC One tablet by mouth daily ASPIRIN TBEC [id number] Khai Birmingham MD atorvastatin 80 mg oral [...] by mouth daily at bedtime ATORVASTATIN CALCIUM [id number] Brisa Ball LPN azithromycin 250 mg oral tablet (20 sources) Macrolide Antimicrobial Start: 08-02-2023 End: 12-24-2024 take 1 tablet by mouth once Azithromycin 250 mg tablet Discontinued 250 mg PO every Sunday, Sunday, and Sunday 12 August 12, 2024 2:30pm December 24, 2024 9:19pm Start: 04-06-2021 End: 07-07-2021 Azithromycin 250 mg [...] tablet Discontinued 250 mg PO daily 6 January 15, 2018 12:00am February 04, 2018 12:45pm budesonide 0.5 mg/ml inhalation suspension (20 sources) [...] 1:00am July 03, 2018 5:06pm Flucelvax Quad 2563-9514 (PF) (flu vac qs 2017(4 yr up)CD(PF)) 60 mcg (15 mcg x (3 sources) Start: 02-04-2018 End: 02-04-2018 inject 15 ug by intramuscular injection once Flucelvax Quad (PF) (flu vac qs 2017(4 yr up)CD(PF)) 60 mcg (15 mcg x Discontinued 60 MCG IM ONCE 1 February 04, 2018 12:23pm February 04, 2018 1:29pm 120 actuat fluticasone propionate 0.22 mg/actuat metered dose inhaler (20 sources) Corticosteroid Start: 02-16-2020 End: 02-16-2020 Fluticasone Propionate (Flovent Hfa) 220 mcg/actuation HFA aerosol inhaler Discontinued 2 NMA INHALATION TWICE A DAY 12 February 16, 2020 1:00am February 16, 2020 [...] MCG/INH AEPB 1 puff daily FLUTICASONE FUROATE-VILANTEROL [id number] Anthony Jalloh DO Start: 11-22-2015 BREO ELLIPTA 2 00-25 MCG/INH AEPB 1 INH one time per kimberly FLUTICASONE FUROATE-VILANTEROL [id number] Brisa Ball LPN Start: 11-22-2015 take 1 puff(s) by in halation once daily BREO ELLIPTA 200-25 MCG/INH AEPB 1 puff daily FLUTICASONE FUROATE-VILANTEROL [id number] Anthony Jalloh DO Start: 11-22-2015 take 1 puff(s) by in halation once daily BREO ELLIPTA 200-25 MCG/INH AEPB 1 puff daily FLUTICASONE FUROATE-VILANTEROL [id number] Anthony Jalloh DO Start: 11-22-2015 take 200-25 ug by in halation once BREO ELLIPTA 200-25 MCG/INH AEPB 1 INH one time per kimberly FLUTICASONE FUROATE-VILANTEROL [id number] Brisa Ball LPN fluvoxaMINE maleate 100 mg oral tablet (20 sources) Serotonin Reuptake Inhibitor Start: 11-02-2022 End: 12-24-2024 take 1 tablet by mouth once daily Fluvoxamine 100 mg tablet Discontinued 100 mg PO DAILY April 20, 2023 1:33pm December 24, 2024 9:19pm Start: 11-02-2022 Fluvoxamine Ac tive MG November 02, 2022 12:00am Start: 12-02-2015 End: 12-30-2015 take 1 tablet by mouth once daily FLUVOXAMINE MALEATE 100 MG TABS One tablet by mouth daily FLUVOXAMINE MALEATE [id number] Brisa Ball LPN 120 actuat formoterol fumarate [...] 12hr Discontinued 1200 mg PO Q12H 30 6 January 18, 2018 12:00am February 25, 2018 [...] disease, unspecified methylPREDNISolone 4 mg oral tablet (20 sources) Corticosteroid Start: 01-28-2024 End: 02-14-2024 Methylprednisolone [...] capsule twice a day NITROFURANTOIN MONOHYD MACRO [id number] Catracho POSADA Start: 10-09-2016 End: 10-16-2016 NITROFURANTOIN MACROCRYSTAL 100 MG CAPS Take 1 capsule every 12 hours NITROFURANTOIN MACROCRYSTAL [id number] Iker POSADA nystatin 229229 unt/ml oral suspension (20 sources) Polyene Antifungal [...] times a day as needed PHENAZOPYRIDINE HCL [id number] Catracho POSADA predniSONE 20 mg oral tablet (20 sources) Start: 12-24-2024 End: 01-20-2025 take 3 tablets by mouth once daily Prednisone 20 mg tablet Discontinued 60 mg PO DAILY 15 December 24, 2024 12:00am January 20, 2025 2:11pm Start: 08-13-2023 End: 09-10-2024 take 1 tablet [...] tablet Discontinued 10 mg PO daily 30 February 19, 2023 1:00am April 20, 2023 [...] 10 mg PO daily 30 0 October 13, 2022 12:00am November 02, 2022 [...] tablet Discontinued 10 mg PO daily 30 February 09, 2020 1:00am May 18, 2020 [...] MG tablet Discontinued 20 mg PO DAILY 08 05October 23, 2015 12:00am March 12, 2017 3:32pm PNEUMOCOCCAL 13-FAVIAN CONJ VACC (2 sources) Inactivated Pneumococcal Vaccine Start: 11-22-2015 PREVNAR 13 SUSP Administer 1 dose PNEUMOCOCCAL 13-FAVIAN CONJ VACC [id number] Brisa Ball LPN Start: 11-22-2015 End: 01-03-2016 PREVNAR 13 SUSP Administer 1 dose PNEUMOCOCCAL 13-FAVIAN CONJ VACC [id number] Kristen Marie [employer] sulfamethoxazole 800 mg / trimethoprim 160 mg oral tablet (20 sources) Dihydrofolate Reductase Inhibitor Antibacterial, Sulfonamide Antimicrobial Start: 04-04-2021 End: 07-07-2021 Sulfamethoxazole-Trimethopri m (Bactrim Ds) 800-160 mg tablet Discontinued 1 {tbl} PO TWICE A DAY 6 0 April 04, 2021 1:00am July 07, 2021 10:04am Tiotropium [place] (20 sources) Anticholinergic Start: 05-18-2020 End: 07-02-2020 take 1 puff(s) by inhalation once daily Tiotropium [place] (Spiriva Respimat) 2.5 mcg/actuation mist Discontinued 2 PUFF INHALATION daily May 18, 2020 12:05pm July 02, 2020 10:58am Start: 05-18-2020 End: 07-02-2020 take 2.5 ug by inhalation once daily Tiotropium [place] (Spiriva Respimat) 2.5 mcg/actuation mist Discontinued 2 NMA INHALATION daily 07 13May 18, 2020 1:00am July 02, 2020 10:58am Start: 05-18-2020 End: 07-02-2020 take 2.5 ug by inhalation once daily Tiotropium [place] (Spiriva Respimat) 2.5 mcg/actuation mist Discontinued 2 NMA INHALATION daily May 18, 2020 1:00am July 02, 2020 10:58am Start: 05-18-2020 End: 07-02-2020 take 1 puff(s) by inhalation once daily Tiotropium [place] (Spiriva Respimat) 2.5 mcg/actuation mist Discontinued 2 PUFF INHALATION daily May 18, 2020 12:00am July 02, 2020 9:58am Start: 05-18-2020 End: 07-02-2020 take 1 puff(s) by inhalation once daily Tiotropium [place] (Spiriva Respimat) 2.5 mcg/actuation mist Discontinued 2 PUFF INHALATION daily May 18, 2020 1:00am July 02, 2020 10:58am Start: 02-25-2018 End: 08-06-2018 Tiotropium [place] 18 mcg ca psule, w/inhalation device Discontinued 1 NMA INHALATION DAILY February 25, 2018 1:00am August 06, 2018 11:49am Start: 12-02-2015 take 1 puff(s) by in halation once daily SPIRIVA HANDIHALER 18 MCG CAPS INH 1 puff daily TIOTROPIUM BROMIDE MONOHYDRATE [id number] Kristenadelfo Acunajevon Marie LPN Start: 12-02-2015 take 1 capsule by in halation once daily SPIRIVA HANDIHALER 18 MCG CAPS INH one time per day TIOTROPIUM BROMIDE MONOHYDRATE [id number] Brisa Ball LPN Start: 12-02-2015 SPIRIVA HANDIH ALER 18 MCG CAPS 2 puffs daily TIOTROPIUM BROMIDE MONOHYDRATE [id number] Anthony Jalloh DO Start: 12-02-2015 take 1 puff(s) by in halation once daily SPIRIVA HANDIHALER 18 MCG CAPS INH 1 puff daily TIOTROPIUM BROMIDE MONOHYDRATE [id number] Kristen Marie LPN Start: 12-02-2015 take 1 capsule by in halation once daily SPIRIVA HANDIHALER 18 MCG CAPS INH one time per day TIOTROPIUM BROMIDE MONOHYDRATE [id number] Brisa Ball LPN Start: 12-02-2015 SPIRIVA HANDIH ALER 18 MCG CAPS 2 puffs daily TIOTROPIUM BROMIDE MONOHYDRATE 28070377107 Anthony Jalloh DO Start: 12-02-2015 SPIRIVA HANDIH ALER 18 MCG CAPS 2 puffs daily TIOTROPIUM BROMIDE MONOHYDRATE [id number] Anthony Jalloh DO Start: 10-23-2015 End: 08-06-2017 Tiotropium [place] 1 PUFF in haler Discontinued 1 NMA INHALATION DAILY October 23, 2015 12:00am August 06, 2017 11:13am Start: 10-23-2015 End: 08-06-2017 take 1 puff(s) by inhalation once daily Tiotropium [place] Discontinued 1 PUFF INHALATION DAILY October 23, [...] VACCINE LIVE (2 sources) Start: 11-22-2015 ZOSTAVAX 04350 UNT/0.65ML SUSR Adminiser 1 dose ZOSTER VACCINE LIVE [id number] Brisa Ball LPN Start: 11-22-2015 End: 01-03-2016 ZOSTAVAX 42921 UNT/0.65ML LONG SR Adminiser 1 dose ZOSTER VACCINE LIVE [id number] Kristen Marie LPN venlafaxine 75 mg oral tablet [...] One tablet by mouth daily VENLAFAXINE HCL [id number] Leilani Baron [employer] Problems Active Problems Problem Classification Problem Date Documented Da te Episodic/Chronic Abdominal pain (1 source) Unspecified abdominal pain; Translations: [Unspecified abdominal pain] Onset: 02-13-2025 Episodic Anxiety disorders (13 sources) Social phobia; Translations: [Social phobia, unspecified] 01-28-2024 Chronic Asthma (20 sources) Uncomplicated severe persistent asthma; Translations: [Severe persistent asthma, uncomplicated] Onset: 02-01-2025 02-09-2020 Chronic Comment on above: on [place] Chronic obstructive pulmonary disease and bronchiectasis (20 sources) Chronic obstructive lung disease; Translations: [Asthma-chronic obstructive pulmonary disease overlap syndrome] Onset: 12-02-2015 12-02-2015 Chronic Coronary atherosclerosis and other heart disease (20 sources) Coronary arteriosclerosis; Translations: [Atherosclerotic heart disease of platinum coronary artery without angina pectoris] Onset: 12-30-2015 12-30-2015 Chronic Disorders of lipid metabolism (19 sources) Hyperlipidemia; Translations: [Hyperlipidemia, unspecified] Onset: 12-30-2015 12-30-2015 Chronic Genitourinary symptoms and ill-defined conditions (20 sources) Increased frequency of urination; Translations: [Dysuria] Onset: 11-09-2016 11-09-2016 Episodic Glaucoma (11 sources) Glaucoma; Translations: [Unspecified glaucoma] 02-14-2024 Chronic Mycoses (20 sources) Candidiasis of mouth; Translations: [Candidal stomatitis] 01-18-2018 Episodic Other circulatory disease (20 sources) H/O: heart disorder; Translations: [Personal history of other diseases of the circulatory system] 12-15-2022 Episodic Other circulatory disease (3 sources) Elevated blood-pressure reading without diagnosis of hypertension; Translations: [Elevated blood-pressure reading, without diagnosis of hypertension] 12-24-2024 Episodic Other lower respiratory disease (18 sources) Dyspnea on exertion; Translations: [Other forms of dyspnea] Onset: 12-02-2015 12-02-2015 Episodic Other lower respiratory disease (20 sources) Nodule of lung; Translations: [Solitary pulmonary nodule] 08-06-2018 Episodic Other lower respiratory disease (5 sources) Solitary pulmonary nodule; Translations: [Solitary pulmonary nodule] Onset: 02-05-2025 Episodic Other lower respiratory disease (15 sources) Dyspnea; Translations: [Shortness of breath] 04-20-2023 Episodic Other lower respiratory disease (15 sources) Wheezing; Translations: [Wheezing] 04-20-2023 Episodic Other lower respiratory disease (6 sources) Shortness of breath; Translations: [Shortness of breath] Onset: 11-03-2024 04-20-2023 Episodic Other lower respiratory disease (4 sources) Wheezing; Translations: [Wheezing] 04-20-2023 Episodic Other nervous system disorders (4 sources) Drug-induced myopathy; Translations: [Drug-induced myopathy] 01-20-2025 Episodic Other nutritional; endocrine; and metabolic disorders (11 sources) Obesity; Translations: [Obesity, unspecified] Onset: 12-02-2015 12-02-2015 Chronic Other screening for suspected conditions (not mental disorders or infectious disease) (1 source) Encounter for screening for malignant neoplasm of respiratory organs; Translations: [Encounter for screening for malignant neoplasm of respiratory organs] Onset: 02-02-2025 Episodic Other upper respiratory disease (3 sources) Acute bronchospasm; Translations: [Acute bronchospasm] 12-24-2024 Episodic Other upper respiratory infections (20 sources) Acute [...] Retinal detachments; defects; vascular occlusion; and retinopathy (11 sources) Degenerative disorder of macula ; Translations: [...] [Chest pain, unspecified] Onset: 12-30-2015 12-30-2015 Episodic Results Test Name Value Interpretation Reference Range Facility Culture, Blood (WB)on 2024 CUB Blood cultures x2, from two different sites No growth in 5 days. Normal [facility] Comment on above: Performed By: #### M 200.1000, L503.6005, L503.7505, L501.4021 ####[facility] [address] [place], [address] Basic Metabolic Profile (BMP )on 02-05-2025 BUN/CRE 10.4 RATIO Normal 01-26 [facility] Comment on above: Performed By: #### L 100.0500, L500.2500 #### [facility] [address] [place], [address] Calcium [Mass/Vol] 9.1 mg/dL Normal 7.6-11.0 [facility] Comment on above: Performed By: #### L 100.0500, L500.2500 #### [facility] [address] [place], [address] Chloride [Moles/Vol] 107 mmol/L Normal 98-108 [facility] Comment on above: Performed By: #### L 100.0500, L500.2500 #### [facility] [address] [place], [address] CO2 [Moles/Vol] 18.7 mmol/L Low 21.0-32.0 [facility] Comment on above: Performed By: #### L 100.0500, L500.2500 #### [facility] [address] [place], [address] Creatinine [Mass/Vol] 0.74 mg/dL Normal 0.70-1.20 [facility] Comment on above: Performed By: #### L 100.0500, L500.2500 #### [facility] [address] [place], [address] ECRCL 70.16 ml/min Normal 50-250 [facility] Comment on above: Performed By: #### L 100.0500, L500.2500 #### [facility] [address] [place], [address] GAP 13 Normal 5-15 [facility] Comment on above: Performed By: #### L 100.0500, L500.2500 #### [facility] [address] [place], [address] GFR/1.73 sq M.predicted among non-blacks MDRD (S/P/Bld) [Vol rate/Area] 87 mL/min/{1.73_m2} Normal >60 [facility] Comment on above: Result Comment: mL/m in/1.73m2 CKD-EPI Creatinine Equation (2020) Performed By: #### L 100.0500, L500.2500 #### [facility] [address] [place], [address] Glucose [Mass/Vol] 183 mg/dL High 70-99 [facility] Comment on above: Performed By: #### L 100.0500, L500.2500 #### [facility] [address] [place], [address] Potassium [Moles/Vol] 3.9 mmol/L Normal 3.3-5.1 [facility] Comment on above: Performed By: #### L 100.0500, L500.2500 #### [facility] [address] [place], [address] Sodium [Moles/Vol] 138 mmol/L Normal 133-145 [facility] Comment on above: Performed By: #### L 100.0500, L500.2500 #### [facility] [address] [place], [address] Urea nitrogen [Mass/Vol] 8 mg/dL Normal 4-19 [facility] Comment on above: Performed By: #### L 100.0500, L500.2500 #### [facility] [address] [place], [address] CBC-Complete Blood Cnt No Di ffon 02-05-2025 Erythrocyte distribution width (RBC) [Ratio] 13.4 % Normal 11.6-14.6 [facility] Comment on above: Performed By: #### L 100.0500, L500.2500 #### [facility] [address] [place], [address] Hematocrit (Bld) [Volume fraction] 38.9 % Normal 37-47 [facility] Comment on above: Performed By: #### L 100.0500, L500.2500 #### [facility] [address] [place], [address] Hemoglobin (Bld) [Mass/Vol] 13.0 g/dL Normal 12.0-15.0 [facility] Comment on above: Performed By: #### L 100.0500, L500.2500 #### [facility] [address] [place], [address] MCH (RBC) [Entitic mass] 28.6 pg Normal 27.0-32.0 [facility] Comment on above: Performed By: #### L 100.0500, L500.2500 #### [facility] [address] [place], [address] MCHC (RBC) [Mass/Vol] 33.4 g/dL Normal 32-36 [facility] Comment on above: Performed By: #### L 100.0500, L500.2500 #### [facility] [address] [place], [address] MCV (RBC) [Entitic vol] 85.5 fL Normal 81-99 [facility] Comment on above: Performed By: #### L 100.0500, L500.2500 #### [facility] [address] [place], [address] Platelet mean volume (Bld) [Entitic vol] 9.5 fL Normal 6.2-12.0 [facility] Comment on above: Performed By: #### L 100.0500, L500.2500 #### [facility] [address] [place], [address] Platelets (Bld) [#/Vol] 362 10*3/uL Normal 150-450 [facility] Comment on above: Performed By: #### L 100.0500, L500.2500 #### [facility] [address] [place], [address] RBC (Bld) [#/Vol] 4.55 10*6/uL Normal 4.2-5.4 [facility] Comment on above: Performed By: #### L 100.0500, L500.2500 #### [facility] [address] [place], [address] RDW SD 42.1 fl Normal 35.1-43.9 [facility] Comment on above: Performed By: #### L 100.0500, L500.2500 #### [facility] [address] [place], [address] WBC (Bld) [#/Vol] 3.4 10*3/uL Low 4.4-11.0 [facility] Comment on above: Performed By: #### L 100.0500, L500.2500 #### [facility] [address] [place], [address] 12 Lead EKGon 02-04-2025 12 Lead EKG [facility] Cardiovascular Services [address] [place] [address] 12 Lead EKG 02/04/25 1305 MR#: [id number] Acct: [id number] Name: TARSHA GONZALEZ Rep #: [id number] : 1955 70 From: Woody Padna MD Attending Dr: Dr. Vaibhav Cardenas MD Status: DIS IN Ordering Dr: Inocencia Cross DO Date: 02/04/25 Location: [facility] Sex: F C Admitted: 02/04/25 Test Reason : Blood Pressure : */* mmHG Vent. Rate : 105 BPM Atrial Rate : 105 BPM P-R Int : 140 ms QRS Dur : 72 ms QT Int : 336 ms P-R-T Axes : 75 77 59 degrees QTcB Int : 444 ms Sinus tachycardia Nonspecific ST abnormality Abnormal ECG Confirmed by NICOLA MENDEZ, WOODY ([id number]), associate editor PHAM MOTLEY ([id number]) on 02/06/2025 7:11:24 AM Referred By: RU Confirmed By: WOODY PANDA MD 02/06/25 0711 Date Woody Panda MD CC: Dr. Vaibhav Cardenas MD; Dr. Naomi Whyte DO; Dr. Inocencia Cross DO Signed Normal [facility] Basic Metabolic Profile (BMP )on 02-04-2025 BUN/CRE 6.6 RATIO Low 10-20 [facility] Comment on above: Performed By: #### L 500.2500, L100.0100 ####[facility] [address] [place], [address] Calcium [Mass/Vol] 9.6 mg/dL Normal 7.6-11.0 [facility] Comment on above: Performed By: #### L 500.2500, L100.0100 ####[facility] [address] [place], [address] Chloride [Moles/Vol] 105 mmol/L Normal 98-108 [facility] Comment on above: Performed By: #### L 500.2500, L100.0100 ####[facility] [address] [place], [address] CO2 [Moles/Vol] 18.9 mmol/L Low 21.0-32.0 [facility] Comment on above: Performed By: #### L 500.2500, L100.0100 ####[facility] [address] [place], [address] Creatinine [Mass/Vol] 0.81 mg/dL Normal 0.70-1.20 [facility] Comment on above: Performed By: #### L 500.2500, L100.0100 ####[facility] [address] [place], [address] ECRCL 67.74 ml/min Normal 50-250 [facility] Comment on above: Performed By: #### L 500.2500, L100.0100 ####[facility] [address] [place], [address] GAP 16 High 5-15 [facility] Comment on above: Performed By: #### L 500.2500, L100.0100 ####[facility] [address] [place], [address] GFR/1.73 sq M.predicted among non-blacks MDRD (S/P/Bld) [Vol rate/Area] 78 mL/min/{1.73_m2} Normal >60 [facility] Comment on above: Result Comment: mL/m in/1.73m2 CKD-EPI Creatinine Equation (2020) Performed By: #### L 500.2500, L100.0100 ####[facility] [address] [place], [address] Glucose [Mass/Vol] 121 mg/dL High 70-99 [facility] Comment on above: Performed By: #### L 500.2500, L100.0100 ####[facility] [address] [place], [address] Potassium [Moles/Vol] 3.6 mmol/L Normal 3.3-5.1 [facility] Comment on above: Performed By: #### L 500.2500, L100.0100 ####[facility] [address] [place], [address] Sodium [Moles/Vol] 139 mmol/L Normal 133-145 [facility] Comment on above: Performed By: #### L 500.2500, L100.0100 ####[facility] [address] [place], [address] Urea nitrogen [Mass/Vol] 5 mg/dL Normal 4-19 [facility] Comment on above: Performed By: #### L 500.2500, L100.0100 ####[facility] [address] [place], [address] CBC W/Diff, Automatedon 10-2 -2024 Absolute Lymph 1.38 X10 3/uL Normal 0.83-4.51 [facility] Comment on above: Performed By: #### L 500.2500, L100.0100 ####[facility] [address] [place], [address] Absolute Neut 4.0 X10 3/uL Normal 2.0-7.7 [facility] Comment on above: Performed By: #### L 500.2500, L100.0100 ####[facility] [address] [place], [address] Basophils/100 WBC (Bld) 0.8 % Normal 0-1 [facility] Comment on above: Performed By: #### L 500.2500, L100.0100 ####[facility] [address] [place], [address] Eosinophils/100 WBC (Bld) 1.8 % Normal 0-5 [facility] Comment on above: Performed By: #### L 500.2500, L100.0100 ####[facility] [address] [place], [address] Erythrocyte distribution width (RBC) [Ratio] 13.4 % Normal 11.6-14.6 [facility] Comment on above: Performed By: #### L 500.2500, L100.0100 ####[facility] [address] [place], [address] Hematocrit (Bld) [Volume fraction] 41.2 % Normal 37-47 [facility] Comment on above: Performed By: #### L 500.2500, L100.0100 ####[facility] [address] [place], [address] Hemoglobin (Bld) [Mass/Vol] 14.0 g/dL Normal 12.0-15.0 [facility] Comment on above: Performed By: #### L 500.2500, L100.0100 ####[facility] [address] [place], [address] IG% 0.800 Normal 0.0-0.9 [facility] Comment on above: Result Comment: IG% - Immature Granulocytes (promyelocytes, myelocytes and metamyelocytes) > 1% indicates that a LEFT SHIFT is Present. Performed By: #### L 500.2500, L100.0100 ####[facility] [address] [place], [address] Lymphocytes/100 WBC (Bld) 22.0 % Normal 19-41 [facility] Comment on above: Performed By: #### L 500.2500, L100.0100 ####[facility] [address] [place], [address] MCH (RBC) [Entitic mass] 29.3 pg Normal 27.0-32.0 [facility] Comment on above: Performed By: #### L 500.2500, L100.0100 ####[facility] [address] [place], [address] MCHC (RBC) [Mass/Vol] 34.0 g/dL Normal 32-36 [facility] Comment on above: Performed By: #### L 500.2500, L100.0100 ####[facility] [address] [place], [address] MCV (RBC) [Entitic vol] 86.2 fL Normal 81-99 [facility] Comment on above: Performed By: #### L 500.2500, L100.0100 ####[facility] [address] [place], [address] Monocytes/100 WBC (Bld) 10.8 % High 0-10 [facility] Comment on above: Performed By: #### L 500.2500, L100.0100 ####[facility] [address] [place], [address] Neutrophils/100 WBC (Bld) 63.8 % Normal 47-70 [facility] Comment on above: Performed By: #### L 500.2500, L100.0100 ####[facility] [address] [place], [address] Nucleated RBC (Bld) [#/Vol] 0 10*3/uL Normal 0-5 [facility] Comment on above: Performed By: #### L 500.2500, L100.0100 ####[facility] [address] [place], [address] Platelet mean volume (Bld) [Entitic vol] 9.4 fL Normal 6.2-12.0 [facility] Comment on above: Performed By: #### L 500.2500, L100.0100 ####[facility] [address] [place], [address] Platelets (Bld) [#/Vol] 338 10*3/uL Normal 150-450 [facility] Comment on above: Performed By: #### L 500.2500, L100.0100 ####[facility] [address] [place], [address] RBC (Bld) [#/Vol] 4.78 10*6/uL Normal 4.2-5.4 [facility] Comment on above: Performed By: #### L 500.2500, L100.0100 ####[facility] [address] [place], [address] RDW SD 42.0 fl Normal 35.1-43.9 [facility] Comment on above: Performed By: #### L 500.2500, L100.0100 ####[facility] [address] [place], [address] WBC (Bld) [#/Vol] 6.3 10*3/uL Normal 4.4-11.0 [facility] Comment on above: Performed By: #### L 500.2500, L100.0100 ####[facility] [address] [place], [address] CTA Chest W/WO Contraston CTA Chest W/WO Contrast [facility] Imaging Services [address] [place] [address] CTA Chest W/WO Contrast MR#: [id number] Acct: [id number] Name: LISATARSHA DOMINGA Rep #: [id number] : 1955 F 70 From: Chadd Santos MD PCP: Dr. Naomi Whyte DO Status: ADM IN Study: CTA Chest W/WO Contrast Date of Exam: 02/04/25 Exam# [id number] Ordering Dr: Inocencia Cross DO PROCEDURE: CTA CHEST W/WO CONTRAST 02/04/2025 REASON FOR EXAM: DYSPNEA TECHNIQUE: Procedure Code: CTCTACHWW Modality: CT Procedure: CTA CHEST W/WO CONTRAST Multiplanar Sagittal and Coronal images were obtained. 3D post processing was performed. CONTRAST: Isovue-300 VOLUME: 89 mL One or more dose reduction techniques were used (e.g., Automated exposure control, adjustment of the mA and/or kV according to patient size, use of iterative reconstruction technique). RADIATION DOSE SUMMARY: DLP: 476.67 mGycm COMPARISON: CT chest 01/19/2025. PET-CT 02/03/2025. FINDINGS: PULMONARY VESSELS: Significant patient respiratory motion artifact, resulting in inadequate evaluation of the segmental-subsegmen dipak pulmonary arterial branches. No central pulmonary arterial emboli are seen. Normal caliber of the main pulmonary trunk. No evidence of right heart strain. LUNGS/PLEURA: Motion artifact. No focal airspace consolidation or findings of pulmonary edema. No pneumothorax or pleural effusions. Unchanged focal left lingular base atelectasis versus scarring. Moderate centrilobular emphysema. Patent central airways. MEDIASTINUM: Unremarkable. No suspicious lymph node enlargement. HEART: Normal in size. No pericardial effusion. Mild coronary artery calcifications. THORACIC AORTA: Normal course and caliber. Mild atherosclerotic disease. UPPER ABDOMEN: No significant abnormality, as visualized. BONES: Minimal degenerative changes of the spine. Qualitative osteopenia. CT/CTA Chest W/WO Contrast IMPRESSION: No acute intrathoracic abnormality. No central pulmonary emboli. Inadequate evaluation of the segmental-subsegmen dipak pulmonary arterial branches due to significant respiratory motion. Moderate centrilobular emphysema. No airspace consolidation/edema or pleural effusion. Reading Location: [facility] CC: Dr. Naomi Whyte DO; Dr. Inocencia Cross DO Chopped Strand Operator: Signed Normal [facility] Chest 1 View (Portable)on Chest 1 View (Portable) [facility] Imaging Services [address] [place] [address] Chest 1 View (Portable) MR#: [id number] Acct: [id number] Name: TARSHA GONZALEZ Rep #: [id number] : 1955 F 70 From: Jason lauren MD PCP: Dr. Naomi Whyte DO Status: REG ER Study: Chest 1 View (Portable) Date of Exam: 02/04/25 Exam# [id number] Ordering Dr: Inocencia Cross DO PROCEDURE: CHEST 1 VIEW (PORTABLE) 02/04/2025 REASON FOR EXAM: DYSPNEA TECHNIQUE: Frontal view of the chest. COMPARISON: December 24, 2024. FINDINGS: Hardware: EKG electrodes are seen. Heart: Cardiac and mediastinal contours are stable. Lungs: The lungs are clear. Bones: Degenerative changes are identified within the thoracic spine. RAD/Chest 1 View (Portable) IMPRESSION: No Acute Findings. Reading Location: [id number] CC: Dr. Naomi Whyte DO; Dr. Inocencia Cross DO Chopped Strand Operator: Signed Normal [facility] Emergency Department Summary on 02-04-2025 Emergency Department Summary [facility] Medical Records Department [address] [place] [address] Emergency Department Summary 02/04/25 MR#: [id number] Acct: [id number] Name: TARSHA GONZALEZ Rep #: [id number] : 1955 70 From: Inocencia Cross DO PCP: Dr. Naomi Whyte DO Status:ADM IN Location: [place] [address] HPI History of Present Illness Chief Complaint: Shortness of Breath Detail of Chief Complaint: Shortness of breath Informant: patient Narrative Narrative: Patient presents with worsening shortness of breath since yesterday. Complains of a cough. Fever up to 100.3 at home. Cough at times productive of some white to clear sputum. She denies chest pain. Patient normally does not wear home O2 but when she woke up this morning and checked her pulse ox it was 83%. Patient has history of COPD. Patient also has a lung mass for which she had a PET scan yesterday. Denies recent travel or surgery. No history of PE or DVT. [facility] Medical History (Updated 02/04/25 @ 15:[address] Inocencia Cross DO) Depression Anxiety Former smoker Asthma Glaucoma Macular degeneration of both eyes Social anxiety disorder Sense of smell altered Urinary tract infection with hematuria COVID-19 COPD (chronic obstructive pulmonary disease) TORREZ (dyspnea on exertion) PHILIP (obstructive sleep apnea) Nicotine dependence in remission Obesity Atherosclerotic heart disease of platinum coronary artery without angina pectoris Cardiac murmur, unspecified Chest pain, unspecified Hyperlipidemia Peripheral vascular disease Central sleep apnea UTI (urinary tract infection) Urinary frequency Home Medications ???Medication ???Instructions ???Recorded ???Last Taken ???Type clopidogrel 75 mg tablet 75 mg PO DAILY 10/23/15 05/10/18 H istory spacer #1 ea 07/29/19 Unknown Rx Disability Placard #1 ea 01/04/21 Unknown Rx estradiol 0.025 mg/24 hr weekly 1 patch transdermal QWEEK 04/20/23 Unknown History transdermal patch mepolizumab 100 mg/mL subcutaneous 100 mg subcut Q4W 01/28/24 Unkno wn History auto-injector (Nucala) albuterol sulfate 90 mcg/actuation 2 puff inhalation Q4H PRN Unknown Rx aerosol inhaler shortness of breath or wheezing #8.5 grams latanoprost 0.005 % eye drops 1 drp ophthalmic (eye) QHS 5 Unknown History lorazepam 1 mg tablet 1 mg PO BID PRN anxiety 09/10/24 U nknown History albuterol sulfate 2.5 mg/3 mL 2.5 mg (3 mL) inhalation Q4H PRN 0 11/06/24 Unknown Rx (0.083 %) solution for nebulization #120 vials fluticasone fur. 100 mcg-umeclid 1 inh inhalation DAILY #3 ea 01/20 Unknown Rx 62.5 mcg-vilant 25 mcg inhalat.powder (Trelegy Ellipta) Allergy/AdvReac Type Severity Reaction Status Date / Time codeine Allergy Itching Verified 02/04/25 12:30 morphine Allergy Itching Verified 02/04/25 12:30 doxycycline AdvReac Severe severe Verified 02/04/25 12:30 headaches and muscle spasms to the chest Family History Mother Cancer lung and cervical Father Emphysema Chronic Bronchitis, in 80s. Sister Diabetes CAD (coronary artery disease) Sister Heart disease Brother Respiratory abnormalities Colon cancer Surgical History History of cardiac catheterization H/O oophorectomy History of tonsillectomy H/O: hysterectomy S/P surgical manipulation of ankle joint Social History Smoking Status: Former smoker pack-years: 80 Tobacco: How many years used: 40 how long ago did patient quit smoking: about 8 years ago second hand exposure: No alcohol intake: never substance use type: does not use what type of physical activity do you participate in: none ROS ROS ED Review of Systems ROS Unobtainable: other Constitutional Constitutional ED: Reports lethargy; Denies chills, fever(s), sweats or weight loss Eyes Eyes: Denies blurry vision, change in vision or diplopia ENT ENT ED: Denies rhinorrhea or sore throat Cardiovascular Cardiovascular: Denies chest pain, orthopnea or racing heartbeat Respiratory/Chest Respiratory/Chest: Reports cough, dyspnea and dyspnea on exertion; Denies orthopnea or sputum Gastrointestinal Gastrointestinal: Denies abdominal pain, diarrhea, nausea or vomiting Genitourinary Genitourinary ED: Denies dysuria, hematuria or urinary frequency Musculoskeletal Musculoskeletal: Denies arthralgias, back pain, myalgias or neck pain Integumentary Denies abscess, Abrasions or rash Neurologic Neurologic: Denies headache(s) or weakness Psychiatric Psychiatric: Denies anxiety, depression or suicidal thoughts Endocrine Endocrinology: Denies polydipsia, polyphagia or polyuria Bernabe (more content not included)... Normal [facility] H AND P Exam - [facility] 02-04-2025 H&P Exam - Hospitalist [facility] Medical Records Department [address] [place] [address] H P Exam - Hospitalist 02/04/25 1508 MR#: [id number] Acct: [id number] Name: TARSHA GONZALEZ DOMINGA Rep #: [id number] : 1955 70 From: Amandeep Montalvo DO PCP: Dr. Naomi Whyte DO Status:ADM IN Location: [facility] [id number] HPI - General General Date of Admission: 02/04/25 Date of Service: 02/04/25 Chief Complaint: Shortness of breath HPI Narrative TARSHA GONZALEZ, is a 70 F who presented to [facility] ED on 02/04/2025 with worsening shortness of breath. Medical history significant for COPD???asthma overlap syndrome, follows with pulmonology here in the office. Does not wear home oxygen. She presented today with worsening shortness of breath and has a pulse ox at home that was reading in the low to mid 80s. In the ED she was satting in the high 80s on room air at rest, improved with 2 L nasal cannula. She was mildly tachycardic but otherwise afebrile and normotensive. CTA chest showed no PE, known moderate centrilobular emphysema, no other concerning findings. She was given DuoNebs and IV steroids in the ED, and hospitalist was contacted for admission. I saw the patient at bedside in the ED. Patient had fairly good energy level and was sitting back comfortably in bed, in no acute distress. Notes that her shortness of breath at rest is improved but she continues to feel quite short of breath with exertion when she tried to walk to the bathroom in the ED. She denies any fevers or chills. Denies any URI symptoms. No other acute concerns. Will be admitted for further management. [facility] Medical History (Updated 02/04/25 @ 15:[address] Inocencia Cross, DO) Depression Anxiety Former smoker Asthma Glaucoma Macular degeneration of both eyes Social anxiety disorder Sense of smell altered Urinary tract infection with hematuria COVID-19 COPD (chronic obstructive pulmonary disease) TORREZ (dyspnea on exertion) PHILIP (obstructive sleep apnea) Nicotine dependence in remission Obesity Atherosclerotic heart disease of platinum coronary artery without angina pectoris Cardiac murmur, unspecified Chest pain, unspecified Hyperlipidemia Peripheral vascular disease Central sleep apnea UTI (urinary tract infection) Urinary frequency Home Medications ???Medication ???Instructions ???Recorded ???Last Taken ???Type clopidogrel 75 mg tablet 75 mg PO DAILY 10/23/15 05/10/18 H istory spacer #1 ea 07/29/19 Unknown Rx Disability Placard #1 ea 01/04/21 Unknown Rx estradiol 0.025 mg/24 hr weekly 1 patch transdermal QWEEK 04/20/23 Unknown History transdermal patch mepolizumab 100 mg/mL subcutaneous 100 mg subcut Q4W 01/28/24 Unkno wn History auto-injector (Nucala) albuterol sulfate 90 mcg/actuation 2 puff inhalation Q4H PRN Unknown Rx aerosol inhaler shortness of breath or wheezing #8.5 grams latanoprost 0.005 % eye drops 1 drp ophthalmic (eye) QHS 5 Unknown History lorazepam 1 mg tablet 1 mg PO BID PRN anxiety 09/10/24 U nknown History albuterol sulfate 2.5 mg/3 mL 2.5 mg (3 mL) inhalation Q4H PRN 0 11/06/24 Unknown Rx (0.083 %) solution for nebulization #120 vials fluticasone fur. 100 mcg-umeclid 1 inh inhalation DAILY #3 ea 01/20 Unknown Rx 62.5 mcg-vilant 25 mcg inhalat.powder (Trelegy Ellipta) Allergy/AdvReac Type Severity Reaction Status Date / Time codeine Allergy Itching Verified 02/04/25 12:30 morphine Allergy Itching Verified 02/04/25 12:30 doxycycline AdvReac Severe severe Verified 02/04/25 12:30 headaches and muscle spasms to the chest Family History Mother Cancer lung and cervical Father Emphysema Chronic Bronchitis, in 80s. Sister Diabetes CAD (coronary artery disease) Sister Heart disease Brother Respiratory abnormalities Colon cancer Surgical History History of cardiac catheterization H/O oophorectomy History of tonsillectomy H/O: hysterectomy S/P surgical manipulation of ankle joint Social History Smoking Status: Former smoker pack-years: 80 Tobacco: How many years used: 40 how long ago did patient quit smoking: about 8 years ago second hand exposure: No alcohol intake: never substance use type: does not use what type of physical activity do you participate in: none ROS Constitutional Constitutional: Reports fatigue; Denies chills, fever(s) or weakness Cardiovascular Cardiovascular: Denies chest pain Respiratory/Chest Respiratory/Chest: Reports cough, shortness of breath at rest, shortness of breath with exertion and wheezing; Denies productive cough Gastrointes (more content not included)... Normal [facility] L501.4021on 02-04-2025 Trop T High Sen 8 ng/L Normal <=14 [facility] Comment on above: Performed By: #### M 200.1000, L503.6005, L503.7505, L501.4021 ####[facility] [address] [place], [address] L509.7001on 02-04-2025 Procalcitonin 0.05 ng/mL Normal <=0.10 [facility] Comment on above: Order Comment: Comme nts: ok to add on Result Comment: Inte rpretation: <0.10-0.25 ng/mL: Antibiotic therapy discouraged. Bacterial infection unlikely. 0.25-0.50 ng/mL: Antibiotic therapy encouraged. Bacterial infection possible. >0.50 ng/mL: Antibiotic therapy strongly encouraged. Suggestive of presence of bacterial infection. PCT should always be interpreted in the clinical context of the patient. Therefore, clinicians should use the PCT results in conjunction with other laboratory findings and clinical signs of the patient. Performed By: #### L 509.7001 ####[facility] [address] [place], [address] Lactic Acidon 02-04-2025 Lactate [Moles/Vol] 1.5 mmol/L Normal 0.0-2.0 [facility] Comment on above: Order Comment: Y Performed By: #### M 200.1000, L503.6005, L503.7505, L501.4021 ####[facility] [address] [place], [address] M100.678on 02-04-2025 M100.678 Pending SARS-CoV-2 (COVID 19) Negative INFLUENZA A Negative INFLUENZA B Negative RSV PCR Negative Normal [facility] Comment on above: Performed By: #### M 100.678 #### [facility] [address] [place], [address] Pro- Brain NATRIURETIC PEPTI Emmy 02-04-2025 Natriuretic peptide B (Bld) [Mass/Vol] 57 pg/mL Normal <=900 [facility] Comment on above: Result Comment: Hear t Failure Unlikely: < 300 pg/mL Heart Failure Likely < 50 Years: > 450 pg/mL 50-75 Years: > 900 pg/mL >75 Years: > 1800 pg/mL Performed By: #### M 200.1000, L503.6005, L503.7505, L501.4021 ####[facility] [address] [place] [place], [address] RESPIRATORY PANEL MOLECULARo n 02-04-2025 RP PANEL ADENOVIRUS Not Detected INFLUENZA A Not Detected INFLUENZA A (SUBTYPE H1) Not Detected INFLUENZA A (SUBTYPE H3) Not Detected INFLUENZA B Not Detected HUMAN METAPHNEUMO Not Detected PARAINFLUENZA 1 Not Detected PARAINFLUENZA 2 Not Detected PARAINFLUENZA 3 Not Detected PARAINFLUENZA 4 Not Detected RHINOVIRUS Not Detected RSV A Not Detected RSV B Not Detected Normal [facility] Comment on above: Performed By: #### M 100.678 #### [facility] [address] [facility] [place], [address] Troponin T HS 2 HRon 02-04-2 025 Trop T High Sen 8 ng/L Normal <=14 [facility] Comment on above: Performed By: #### L 499.0042 ####[facility] [address] [place], [address] Troponin T HS 4 HRon 02-04-2 025 Trop T High Sen 14 ng/L Normal <=14 [facility] Comment on above: Performed By: #### L 499.0043 ####[facility] [address] [facility] [place], [address] PET/CT Tumor Base -Thigh Ini ton 02-03-2025 PET/CT Tumor Base -Thigh Init [facility] Imaging Services [address] [place] [address] PET/CT Tumor Base -Thigh Init MR#: [id number] Acct: [id number] Name: TARSHA GONZALEZ Rep #: [id number] : 1955 F 70 From: Vaibhav Briggs PCP: Dr. Naomi Whyte, DO Status: REG CLI Study: PET/CT Tumor Base -Thigh Init Date of Exam: Exam# [id number] Ordering Dr: Cathie De Jesus EGGS INSPECTOR EGGS INSPECTOR-C PROCEDURE: PET/CT TUMOR BASE -THIGH INIT 02/03/2025 REASON FOR EXAM: 70 y/o F with ABNORMAL FINDINGS IN LUNG FIELD TECHNIQUE: Procedure Code: PETPTCTINIT Modality: PT Procedure: PET/CT TUMOR BASE -THIGH INIT Following the intravenous administration of radionucleotide, image acquisition on a dedicated PET/CT unit was performed at one hour post injection. A preliminary CT study encompassing the Skull base, neck, chest, abdomen, pelvis, and proximal thighs was performed for purposes of attenuation correction and anatomic localization. The proximal thighs were also included. The patient's blood glucose level was 122 mg/dL (allowable range: 50-180 mg/dL). RADIOPHARMACEUTICAL : 13.55 mCi 18F-FDG (Fluorodeoxyglucose F18) IV was injected into he patient. RADIATION DOSE SUMMARY: Effective Dose: Approximately 7 mSv for a standard whole-body PET scan Organ Doses: Varies by organ, with higher doses typically to the bladder, liver, and brain COMPARISON: COMPARISON FROM CT, PET OR OTHER PERTINENT EXAMS: Chest CT of 01/19/2025.. FINDINGS: Physiologic uptake: There may be expected metabolic uptake within the brain, tongue and floor of the mouth and larynx/vocal cords, heart, helder (many normal individuals have hilar uptake in less than 3 nodes with mildly avid hilar nodes less than 2.7 SUV), liver and spleen, system, and GI tract and symmetric muscle uptake. FDG AVID AND NON-AVID LESIONS. Reported avid SUV values (g/mL*) are maximum SUV. NECK: There are no significant neck abnormalities. CHEST: Chest wall- There are no significant chest wall abnormalities. Axilla- There are no significant axillary abnormalities. Lung parenchyma- There are no significant lung parenchyma abnormalities. Mediastinum- There are no significant hilar or mediastinal adenopathy. Pleura- There are no significant pleural abnormalities. ABDOMEN: Prominent arterial calcification; no evidence of abdominal aortic aneurysm. Stomach- No significant abnormalities. Liver- No significant abnormalities. Spleen- No significant abnormalities. Pancrease- No significant abnormalities. Kidneys- No significant abnormalities. Bowel- Normal bowel activity. Spine- No significant abnormalities. PELVIS: Moderate sigmoid diverticulosis. Bowel- Normal physiologic bowel activity is identified. Masses- There are no pelvic masses. Bones- Degenerative changes of the spine are most prominent in the cervical spine. With the use of bone window settings, there are no osteolytic or osteoblastic lesions. There are no FDG avid lesions within the visualized portion of the axial skeleton. PET/PET/CT Tumor Base -Thigh Init IMPRESSION: FDG avid- No significant avid lesions. Other: 1. Moderate sigmoid diverticulosis. 2. Prominent arterial calcification; no evidence of abdominal aortic aneurysm. 3. Degenerative changes of the spine are most prominent at the cervical spine. Please note the low-dose CT scan was performed to facilitate PET image reconstruction and anatomic localization and does not replace a diagnostic CT. Any diagnostic CT requested and performed at the time of the PET will be reported separately. Reading Location: [place] [address] CC: EGGS INSPECTORFroylan De Jesus; Dr. Naomi Whyte DO Chopped Strand Operator: Signed Normal [facility] Abdomen Single Viewon 2024 Abdomen Single View [facility] Imaging Services [address] [place] [address] Abdomen Single View MR#: [id number] Acct: [id number] Name: TARSHA GONZALEZ Rep #: [id number] : 1955 F 70 From: Vaibhav Briggs PCP: Dr. Naomi Whyte DO Status: REG CLI Study: Abdomen Single View Date of Exam: 02/02/25 Exam# [id number] Ordering Dr: Naomi Whyte DO PROCEDURE: ABDOMEN SINGLE VIEW 02/02/2025 REASON FOR EXAM: KUB- ABDOMINAL PAIN TECHNIQUE: Procedure Code: RADABD Modality: DX Procedure: Two-view supine abdomen COMPARISON: None. RAD/Abdomen Single View IMPRESSION: The bowel-gas pattern is unremarkable. No mass or mass effect is seen. [id number] degenerative changes of the visualized spine are seen. Minimal sacroiliac joint degenerative changes are noted. Although limited by overlying stool, no urinary tract calculus is appreciated. Reading Location: [place] [address] CC: Dr. Naomi Whyte DO Chopped Strand Operator: Signed Normal [facility] Pulmonary Visit Reporton Pulmonary Visit Report [facility] Pulmonary Medicine [address] [place] [address] OFFICE VISIT Date of Service: 01/20/25 MR#: [id number] Acct: [id number] Name: TARSHA GONZALEZ Rep #: [id number] : 1955 Provider: NELI De Jesus Age/Sex: 69/F Location: [facility] Status: Signed Assessment and Plan Assessment and Plan (1) Asthma-COPD overlap syndrome: Status: Chronic Comment: on Nucala Plan: Stable, no signs of exacerbation of severe asthma/COPD overlap syndrome today. Continue Trelegy. I gave her a written specific instruction for a slow wean off of prednisone. She is agreeable with this plan. Continue Nucala. No additional testing at this time. Contact the office with any signs of new or worsening symptoms. Follow-up in 6 weeks. (2) Tobacco abuse, in remission: Status: Chronic Plan: LDCT was completed yesterday, unfortunately interpretation is not available for today. This will be reviewed at her 6-week follow-up. Continue to encourage ongoing smoking cessation. (3) PHILIP (obstructive sleep apnea): Status: Chronic Plan: Deteriorated. She is having some difficulty with her machine, which she believes is 9 years old. We will try to get the patient set up on a new device. I did explain to the patient that there are times when Medicare requires a new sleep study to approve a new device. She is agreeable that if it is required she will complete a sleep study. However, she notes that she would have difficulty sleeping and would require a sleep aid. Follow-up in 6 weeks to evaluate her response to the new machine and the compliance report. (4) Social anxiety disorder: Status: Chronic Plan: Complicates exam, plan, care and prognosis. This is likely the reason the patient does not always follow-up with testing that is ordered and requested. If you recall, I had requested a retitration study at the last office visit and the patient did not follow through with this. She seems agreeable to a retitration if Medicare requires that. (5) Obesity: Status: Chronic Qualifiers: Obesity type: drug-induced Obesity classification: adult class 2 (BMI 35 - 39.9) Serious obesity comorbidity presence: with serious comorbidity Body mass index: BMI 36.0-36.9 Qualified Code(s): E66.812 - Obesity, class 2; E66.1 - Drug-induced obesity; Z68.36 - Body mass index [BMI] 36.0-36.9, adult Plan: Complicates exam, plan, care and prognosis. This is at least somewhat related to long-term use of prednisone. I am going to attempt to slowly wean the patient off the prednisone. She may be appropriate to be treated with Zepbound given her concomitant diagnosis of sleep apnea. I will leave this decision and management ultimately up to her primary care provider. 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 This may her ability to expectorate sputum. We may need to order a chest physiotherapy vest to aid her in pulmonary toileting. We will discuss this further at her follow-up visit. Orders: Orders PFT Complete - DLCO, Spirometry b/a bronchodilators, lung volumes 10/20/25 J44.9 - Chronic obstructive pulmonary disease, unspecified Medications: Refilled fluticasone-umeclid in-vilanter 100-62.5-25 mcg (Trelegy Ellipta) 1 inh inhalation DAILY 3 ea 3RF Plan Details Additional Comments: This note was generated with Savorfull dictation software. It may contain incorrect words, spelling, and punctuation that were not noted in checking the note before signing. Portions of this documentation have been copied and pasted from previous office visit notes to provide a cohesive continuity of the history. The note has been reviewed, edited, and updated, as necessary. I have spent 44 minutes today reviewing labs, records and history. Time includes coordinating care, interpretation of tests. This also includes time I spent with the patient for exam, treatment plan and education as well as documenting clinical information. Follow Up: 6 Weeks HPI 4 m f u Chief Complaint: Routine follow-up HPI Comments Details: This patient presents to the office today for follow-up of her severe asthma/COPD overlap syndrome complicated by obstructive sleep apnea. She is ambulatory and on room air. She was seen in the emergency department on December 24, 2024 and diagnosed with COPD exacerbation. Chest x-ray showed chronic COPD changes. She declined bronchodilator treatments. She was treated with Solu-Medrol and discharged home on a prednisone burst. She has been compliant with use of Trelegy but has been using it as needed. She is on prednisone 10 mg. She does report rinsing her mouth out after each use. She denies any medication side effect such as sore throat or thrush. She is compliant with Nucala once monthly injections. S (more content not included)... Normal [facility] Low Dose CT Lung Screeningon 01-19-[address] Lung Screening [facility] Imaging Services [address] [place] [address] Lung Screening MR#: [id number] Acct: [id number] Name: TARSHA GONZALEZ DOMINGA Rep #: [id number] : 1955 F 69 From: Darrell Osborn MD PCP: Dr. Naomi Whyte, DO Status: REG CL Study: Low Dose CT Lung Screening Date of Exam: 01/19 Exam# [id number] Ordering Dr: Cathie De Jesus EGGS INSPECTOR EGGS INSPECTOR-C PROCEDURE: LOW DOSE CT LUNG SCREENING 01/19/2025 REASON FOR EXAM: SMOKER TECHNIQUE: Procedure Code: CTLUNGSCREEN Modality: CT Procedure: LOW DOSE CT LUNG SCREENING Coronal and Sagittal reconstruction series were provided. One or more dose reduction techniques were used (e.g., Automated exposure control, adjustment of the mA and/or kV according to patient size, use of iterative reconstruction technique). REFERENCE LINK: [employer] Lung-RADS RADIATION DOSE SUMMARY: CTDlvol: 3.18 mGy DLP: 106.42 mGycm COMPARISON: Low-dose CT lung screen, 12/28/2023. FINDINGS: PULMONARY NODULES: (Only nodules >3mm are reported) Lower neck:The thyroid gland is grossly unremarkable. There is no supraclavicular lymphadenopathy. Mediastinum:There are multiple reactive mediastinal lymph nodes, the largest, a pretracheal node, measuring 1.7 x 1.0 cm. Heart and thoracic aorta:The heart size is normal. There is no pericardial effusion. There is significant calcific vascular disease of the coronary arteries and thoracic aorta. The aortic valve is heavily calcified. Esophagus:Normal. Upper Abdomen:There is significant calcific vascular disease of the visualized abdominal aorta. There is calcified plaque of the origin of the SMA and both renal arteries. There are benign calcified splenic granulomas. Chest wall:The visualized soft tissues of the chest wall appear unremarkable. There is no axillary lymphadenopathy. There is diffuse osteopenia of the visualized spine. There is mild dextroscoliosis of the thoracic spine. Lungs, airways and pleura: There is pleural-parenchymal scarring in both lung apices. There is moderate upper lobe predominant centrilobular emphysema. There is an area of pleural-based airspace consolidation in the inferior segment of the lingula measuring 2.[address]/Low Dose CT Lung Screening IMPRESSION: 1. Area of masslike consolidation in the lingula. 2. Emphysema. 3. Calcific vascular disease. 4. Other findings as noted. Lung-RADS Category: 3 S: Probably benign. Emphysema. Calcific vascular disease. Recommendation: Follow up low-dose chest CT in six-months. Reading Location: [place] [address] CC: EGGS INSPECTORFroylan De Jesus; Dr. Naomi Whyte DO Chopped Strand Operator: Signed Normal [facility] 12 Lead EKGon 12-24-2024 12 Lead EKG [facility] Cardiovascular Services [address] [place] [address] 12 Lead EKG 12/24/245 MR#: [id number] Acct: [id number] Name: TARSHA GONZALEZ DOMINGA Rep #: [id number] : 1955 69 From: Woody Panda MD Attending Dr: Status: DEP ER Ordering Dr: Leobardo Harrington MD Date: 12/24/24 Location: ED Sex: F C Admitted: Test Reason : SOB Blood Pressure : */* mmHG Vent. Rate : 89 BPM Atrial Rate : 89 BPM P-R Int : 126 ms QRS Dur : 72 ms QT Int : 346 ms P-R-T Axes : 69 69 60 degrees QTcB Int : 420 ms Normal sinus rhythm Cannot rule out Inferior infarct (cited on or before 15-Dec-2022) Abnormal ECG Confirmed by WOODY PANDA MD ([id number]), associate editor JOAQUÍN HOLLEY ([id number]) on 12/26/2024 10:40:27 AM Referred By: AK Confirmed By: WOODY PANDA MD 12/26/24 1040 Date Woody Panda MD CC: Dr. Naomi Whyte DO; Dr. Leobardo Harrington MD Signed Normal [facility] Absolute lymphocyte countOrd ered By: Leobardo Harrington on 12-24-2024 Lymphocytes Auto (Unsp spec) [#/Vol] 2.15 10*3/uL 0.83-4.51 [facility] Absolute neutrophil countOrd ered By: Leobardopatito Harrington on 12-24-2024 Neutrophils (Bld) [#/Vol] 3.7 10*3/uL 2.0-7.7 [facility] Anion gap in Serum or Plasma Ordered By: Leobardopatito Harrington on 12-24-2024 Anion gap [Moles/Vol] 14 mmol/L - [facility] Automated lymphocyte count a s percentage of total leukocytesOrdered By: Leobardopatito Harrington on 12-24-2024 Lymphocytes/100 WBC Auto (Unsp spec) 32.5 % - [facility] BUN/creatinine ratioOrdered By: Leobardopatito Harrington on 12-24-2024 Urea nitrogen/Creatinine [Mass ratio] 5.7 mg/mg Low 10- [facility] Basic Metabolic Profile (BMP )on 12-24-2024 BUN/CRE 5.7 RATIO Low 01-26 [facility] Comment on above: Performed By: #### M 158.812 #### [facility] Laboratory [address] [place], [address] Calcium [Mass/Vol] 9.2 mg/dL Normal 7.6-11.0 [facility] Comment on above: Performed By: #### M 100.678 #### [facility] [address] [place], [address] Chloride [Moles/Vol] 108 mmol/L Normal 98-108 [facility] Comment on above: Performed By: #### M 100.678 #### [facility] [address] [place], [address] CO2 [Moles/Vol] 17.4 mmol/L Low 21.0-32.0 [facility] Comment on above: Performed By: #### M 100.678 #### [facility] [address] [place], [address] Creatinine [Mass/Vol] 0.84 mg/dL Normal 0.70-1.20 [facility] Comment on above: Performed By: #### M 100.678 #### [facility] [address] [place], [address] ECRCL 70.10 ml/min Normal 50-250 [facility] Comment on above: Performed By: #### M 100.678 #### [facility] [address] [place], [address] GAP 14 Normal 5-15 [facility] Comment on above: Performed By: #### M 100.678 #### [facility] [address] [place], [address] GFR/1.73 sq M.predicted among non-blacks MDRD (S/P/Bld) [Vol rate/Area] 75 mL/min/{1.73_m2} Normal >60 [facility] Comment on above: Result Comment: mL/m in/1.73m2 CKD-EPI Creatinine Equation (2020) Performed By: #### M 100.678 #### [facility] [address] [place], [address] Glucose [Mass/Vol] 96 mg/dL Normal 70-99 [facility] Comment on above: Performed By: #### M 100.678 #### [facility] [address] [place], [address] Potassium [Moles/Vol] 3.9 mmol/L Normal 3.3-5.1 [facility] Comment on above: Result Comment: Hemo lysis present, Results??could be affected. ?? Performed By: #### M 100.678 #### [facility] [address] [place], [address] Sodium [Moles/Vol] 140 mmol/L Normal 133-145 [facility] Comment on above: Performed By: #### M 100.678 #### [facility] [address] [place], [address] Urea nitrogen [Mass/Vol] 5 mg/dL Normal 4-19 [facility] Comment on above: Performed By: #### M 100.678 #### [facility] [address] [place], [address] Basophil percentageOrdered B y: Leobardo Harrington on 12-24-2024 Basophils/100 WBC (Bld) 0.9 % 0-1 [facility] CBC W/Diff, Automatedon 12-08 Absolute Lymph 2.15 X10 3/uL Normal 0.83-4.51 [facility] Comment on above: Performed By: #### M 100.678 #### [facility] [address] [place], [address] Absolute Neut 3.7 X10 3/uL Normal 2.0-7.7 [facility] Comment on above: Performed By: #### M 100.678 #### [facility] [address] [place], [address] Basophils/100 WBC (Bld) 0.9 % Normal 0-1 [facility] Comment on above: Performed By: #### M 100.678 #### [facility] [address] [place], [address] Eosinophils/100 WBC (Bld) 0.8 % Normal 0-5 [facility] Comment on above: Performed By: #### M 100.678 #### [facility] [address] [place], [address] Erythrocyte distribution width (RBC) [Ratio] 13.2 % Normal 11.6-14.6 [facility] Comment on above: Performed By: #### M 100.678 #### [facility] [address] [place], [address] Hematocrit (Bld) [Volume fraction] 39.3 % Normal 37-47 [facility] Comment on above: Performed By: #### M 100.678 #### [facility] [address] [place], [address] Hemoglobin (Bld) [Mass/Vol] 13.1 g/dL Normal 12.0-15.0 [facility] Comment on above: Performed By: #### M 100.678 #### [facility] [address] [place], [address] IG% 0.600 Normal 0.0-0.9 [facility] Comment on above: Result Comment: IG% - Immature Granulocytes (promyelocytes, myelocytes and metamyelocytes) > 1% indicates that a LEFT SHIFT is Present. Performed By: #### M 100.678 #### [facility] [address] [place], [address] Lymphocytes/100 WBC (Bld) 32.5 % Normal 19-41 [facility] Comment on above: Performed By: #### M 100.678 #### [facility] [address] [place], [address] MCH (RBC) [Entitic mass] 29.2 pg Normal 27.0-32.0 [facility] Comment on above: Performed By: #### M 100.678 #### [facility] [address] [place], [address] MCHC (RBC) [Mass/Vol] 33.3 g/dL Normal 32-36 [facility] Comment on above: Performed By: #### M 100.678 #### [facility] [address] [place], [address] MCV (RBC) [Entitic vol] 87.7 fL Normal 81-99 [facility] Comment on above: Performed By: #### M 100.678 #### [facility] [address] [place], [address] Monocytes/100 WBC (Bld) 9.8 % Normal 0-10 [facility] Comment on above: Performed By: #### M 100.678 #### [facility] [address] [place], [address] Neutrophils/100 WBC (Bld) 55.4 % Normal 47-70 [facility] Comment on above: Performed By: #### M 100.678 #### [facility] [address] [place], [address] Nucleated RBC (Bld) [#/Vol] 0 10*3/uL Normal 0-5 [facility] Comment on above: Performed By: #### M 100.678 #### [facility] [address] [place], [address] Platelet mean volume (Bld) [Entitic vol] 9.1 fL Normal 6.2-12.0 [facility] Comment on above: Performed By: #### M 100.678 #### [facility] [address] [place], [address] Platelets (Bld) [#/Vol] 342 10*3/uL Normal 150-450 [facility] Comment on above: Performed By: #### M 100.678 #### [facility] [address] [place] [place], [address] RBC (Bld) [#/Vol] 4.48 10*6/uL Normal 4.2-5.4 [facility] Comment on above: Performed By: #### M 100.678 #### [facility] [address] [place], [address] RDW SD 42.1 fl Normal 35.1-43.9 [facility] Comment on above: Performed By: #### M 100.678 #### [facility] [address] [place], [address] WBC (Bld) [#/Vol] 6.6 10*3/uL Normal 4.4-11.0 [facility] Comment on above: Performed By: #### M 100.678 #### [facility] [address] [place], [address] Carbon dioxide, total [Moles /volume] in Central venous bloodOrdered By: Leobardo Harrington on 12-24-2024 CO2 [Moles/Vol] 17.4 mmol/L Low 21.0-32.0 [facility] Chest PA and Lateralon 12-24 Chest PA and Lateral [facility] Imaging Services [address] [place] [address] Chest PA and Lateral MR#: [id number] Acct: [id number] Name: TARSHA GONZALEZ DOMINGA Rep #: [id number] : 1955 F 69 From: Chadd Santos MD PCP: Dr. Naomi Whyte, Status: [facility] ER Study: Chest PA and Lateral Date of Exam: 12/24/24 Exam# [id number] Ordering Dr: Leobardo Harrington MD PROCEDURE: CHEST PA AND LATERAL 12/24/2024 REASON FOR EXAM: COUGH, SCATTERED WHEEZING, HISTORY OF COPD TECHNIQUE: Procedure Code: RADCXR Modality: DX Procedure: CHEST PA AND LATERAL COMPARISON: 11/18/2024 FINDINGS: Lungs/Pleura: No focal airspace consolidation. Diffuse bilateral interstitial reticular emphysematous lung changes. No pneumothorax or sizable pleural effusion. Heart/Mediastinum: Within normal limits. Aortic atherosclerotic calcification. Bones/Soft tissues: Mild multilevel degenerative changes of the spine. RAD/Chest PA and Lateral IMPRESSION: Interstitial emphysematous lung changes. No focal consolidation. Reading Location: [facility] CC: Dr. Naomi Whyte DO; Dr. Leobardo Harrington MD Chopped Strand Operator: Signed Normal [facility] Chloride assayOrdered By: Paige Harrington on 12-24-2024 Chloride [Moles/Vol] 108 mmol/L 98-108 [facility] Emergency Department Summary on 12-24-2024 Emergency Department Summary [facility] Medical Records Department [address] [place] [address] Emergency Department Summary 12/24/24 MR#: [id number] Acct: [id number] Name: TARSHA GONZALEZ Rep #: [id number] : 1955 69 From: Leobardo Harrington MD PCP: Dr. Naomi Whyte DO Status:REG ER Location: ED HPI History of Present Illness Chief Complaint: Shortness of Breath Detail of Chief Complaint: Increase shortness of breath, cough, wheezing and tightness in chest with d Informant: patient Onset/Context/Timin g Onset: Days Context: gradual Timing: Continuous and Waxes and wanes Quality: Positive for Dyspnea on exertion and Wheezing; Negative for Orthopnea or PND Current Severity: Mild Maximum Severity: Moderate Worsened by: Coughing Relieved by: Nothing Associated Symptoms cough; Negative for rhinorrhea, post nasal drip, ear pain, fever, sore throat, subjective, chills, sweats, clear sputum, white sputum, yellow sputum or green sputum Chest Pain: Positive for Intermittent and Pleuritic Narrative Narrative: Patient is a 69-year-old female. She has history of dyspnea, hyperlipidemia, glaucoma, macro degenerative disease of both eyes, COPD, bronchiectasis, obstructive sleep apnea and tobacco use. She smoked up to 1+ packs per day 5 years ago. She denies history of VTE. She has no risk factors for VTE. She denies leg pain, swelling discoloration. Patient has pleuritic pain with coughing. She denies hemoptysis. Her cough is essentially nonproductive. She is presently on prednisone 10 mg. She denies rhinorrhea, congestion postnasal drainage. Denies ear pain or ear discharge. She denies abdominal pain, nausea, vomiting or diarrhea. She denies urologic symptoms. She denies orthopnea. She denies PND. PE Risk Factors: Negative for Cancer, OCP + Smoking + > 35, Prior DVT or PE, Recent immobilization, Recent surgery (Eye surgery several months ago.) or Recent travel (Drove to [place] greater than month ago) Prior similar symptoms: Yes Recent Illness/Hospitaliza tion: No PFSH PFSH Medical History Glaucoma Macular degeneration of both eyes Social anxiety disorder Sense of smell altered Urinary tract infection with hematuria COVID-19 COPD (chronic obstructive pulmonary disease) TORREZ (dyspnea on exertion) PHILIP (obstructive sleep apnea) Nicotine dependence in remission Obesity Atherosclerotic heart disease of platinum coronary artery without angina pectoris Cardiac murmur, unspecified Chest pain, unspecified Hyperlipidemia Peripheral vascular disease Central sleep apnea UTI (urinary tract infection) Urinary frequency Home Medications ???Medication ???Instructions ???Recorded ???Last Taken ???Type clopidogrel 75 mg tablet 75 mg PO DAILY 10/23/15 05/10/18 H istory spacer #1 ea 07/29/19 Unknown Rx Disability Placard #1 ea 01/04/21 Unknown Rx estradiol 0.025 mg/24 hr weekly 1 patch transdermal QWEEK 04/20/23 Unknown History transdermal patch fluticasone fur. 100 mcg-umeclid 1 inh inhalation DAILY 04/20/23 Un known History 62.5 mcg-vilant 25 mcg inhalat.powder (Trelegy Ellipta) mepolizumab 100 mg/mL subcutaneous 100 mg subcut Q4W 01/28/24 Unkno wn History auto-injector (Nucala) albuterol sulfate 90 mcg/actuation 2 puff inhalation Q4H PRN Unknown Rx aerosol inhaler shortness of breath or wheezing #8.5 grams latanoprost 0.005 % eye drops 1 p ophthalmic (eye) QHS 5 Unknown History lorazepam 1 mg tablet 1 mg PO BID PRN anxiety 09/10/24 U nknown History prednisone 10 mg tablet 10 mg PO QDAY #90 tabs 09/10/24 Un known Rx albuterol sulfate 2.5 mg/3 mL 2.5 mg (3 mL) inhalation Q4H PRN 0 11/06/24 Unknown Rx (0.083 %) solution for nebulization #120 vials prednisone 20 mg tablet 60 mg (3 x 20 mg) PO DAILY #15 Unknown Rx TABLETS Allergy/AdvReac Type Severity Reaction Status Date / Time codeine Allergy Itching Verified 12/24/24 21:05 morphine Allergy Itching Verified 12/24/24 21:05 doxycycline AdvReac Severe severe Verified 12/24/24 21:05 headaches and muscle spasms to the chest Family History Mother Cancer lung and cervical Father Emphysema Chronic Bronchitis, in 80s. Sister Diabetes CAD (coronary artery disease) Sister Heart disease Brother Respiratory abnormalities Colon cancer Surgical History History of cardiac catheterization H/O oophorectomy History of tonsillectomy H/O: hysterectomy S/P surgical manipulation of ankle joint Social History Smoking Status: Former smoker pack-years: 80 Tobacco: How many years used: 40 how long ago did (more content not included)... Normal [facility] Eosinophil percentageOrdered By: Leobardo Harrington on 12-24-2024 Eosinophils/100 WBC (Bld) 0.8 % 0-5 [facility] Erythrocyte distribution wid th ratioOrdered By: Leobardo Harrington on 12-24-2024 Erythrocyte distribution width (RBC) [Ratio] 13.2 % 11.6-14.6 [facility] Erythrocyte distribution wid th standard deviationOrdered By: Leobardo Harrington on 12-24-2024 Erythrocyte distribution width (RBC) [Ratio] 42.1 fl 35.1-43.9 [facility] Glomerular filtration rate ( GFR) estimation/1.73 sq m using serum, plasma, or whole bOrdered By: Leobardo Harrington on 12-24-2024 GFR/1.73 sq M.predicted among non-blacks MDRD (S/P/Bld) [Vol rate/Area] 75 mL/min/{1.73_m2} >60 [facility] Comment on above: mL/min/1.73m2 CKD-EP I Creatinine Equation (2020) Hematocrit Auto (Bld) [Volum e fraction]Ordered By: Leobardo Harrington on 12-24-2024 Hematocrit (Bld) [Volume fraction] 39.3 % 37-47 [facility] Hemoglobin measurementOrdere d By: Leobardopatito Harrington on 12-24-2024 Hemoglobin (Bld) [Mass/Vol] 13.1 g/dL 12.0-15.0 [facility] Immature granulocytes/100 WB C Auto (Bld)Ordered By: Leobardopatito Harrington on 12-24-2024 Immature granulocytes/100 WBC (Bld) 0.600 % 0.0-0.9 [facility] Comment on above: IG% - Immature Granu locytes (promyelocytes, myelocytes and metamyelocytes) > 1% indicates that a LEFT SHIFT is Present. MCV (mean corpuscular volume ) determinationOrdered By: Leobardo Harrington on 12-24-2024 MCV (RBC) [Entitic vol] 87.7 fL 81-99 [facility] Mean corpuscular hemoglobin (MCH) determinationOrdered By: Leobardopatito Harrington on 12-24-2024 MCH (RBC) [Entitic mass] 29.2 pg 27.0-32.0 [facility] Mean corpuscular hemoglobin concentration (MCHC) determinationOrdered By: Leobardopatito Harrington on 12-24-2024 MCHC (RBC) [Mass/Vol] 33.3 g/dL 32-36 [facility] Mean platelet volume determi nationOrdered By: Leobardopatito Harrington on 12-24-2024 Platelet mean volume (Bld) [Entitic vol] 9.1 fL 6.2-12.0 [facility] Monocyte percentageOrdered B y: Leobardo Harrington on 12-24-2024 Monocytes/100 WBC (Bld) 9.8 % 0-10 [facility] Neutrophil percentageOrdered By: Leobardopatito Harrington on 12-24-2024 Neutrophils/100 WBC (Bld) 55.4 % 47-70 [facility] Nucleated red blood cell per centageOrdered By: Leobardopatito Harrington on 12-24-2024 Nucleated RBC/100 WBC (Bld) [Ratio] 0 % 0-5 [facility] Platelet countOrdered By: [facility] Len on 12-24-2024 Platelets (Bld) [#/Vol] 342 10*3/uL 150-450 [facility] Potassium measurement (mass/ volume)Ordered By: Leobardopatito Harrington on 12-24-2024 Potassium (Unsp spec) [Mass/Vol] 3.9 mmol/L 3.3-5.1 [facility] Comment on above: Hemolysis present, R esults could be affected. RBC Auto (Bld) [#/Vol]Ordere d By: Leobardopatito Harrington on 12-24-2024 RBC (Bld) [#/Vol] 4.48 10*6/uL 4.2-5.4 [facility] Serum creatinine measurement (mass/volume)Ordered By: Leobardo Harrington on 12-24-2024 Creatinine [Mass/Vol] 0.84 mg/dL 0.70-1.20 [facility] Serum glucose measurement (m ass/volume)Ordered By: Leobardo Harrington on 12-24-2024 Glucose [Mass/Vol] 96 mg/dL 70-99 [facility] Serum or plasma calcium aida urement (mass/volume)Ordered By: Leobardo Harrington on 12-24-2024 Calcium [Mass/Vol] 9.2 mg/dL 7.6-11.0 [facility] Serum or plasma urea nitroge n measurement (mass/volume)Ordered By: Leobardopatito Harrington on 12-24-2024 Urea nitrogen [Mass/Vol] 5 mg/dL 4-19 [facility] Sodium levelOrdered By: Leobardopatito Harrington on 12-24-2024 Sodium [Moles/Vol] 140 mmol/L 133-145 [facility] White blood cell (WBC) count Ordered By: Leobardopatito Harrington on 12-24-2024 WBC (Bld) [#/Vol] 6.6 10*3/uL 4.4-11.0 [facility] Chest PA and Lateralon 11-18 Chest PA and Lateral [facility] Imaging Services [address] [place] [address] Chest PA and Lateral MR#: [id number] Acct: [id number] Name: TARSHA GONZALEZ Rep #: [id number] : 1955 F 69 From: Johann Bowman MD PCP: Dr. Naomi Whyte DO Status: REG CLI Study: Chest PA and Lateral Date of Exam: 11/18/24 Exam# [id number] Ordering Dr: Naomi Whyte DO PROCEDURE: CHEST [...] IMPRESSION: No acute cardiopulmonary abnormalities. Reading Location: [facility] CC: Dr. Naomi Whyte DO Chopped Strand Operator: Signed Normal [facility] Cardiovascular stress test r eportOrdered By: Mary Villasenor on 10-24-2024 Study report [facility] Cardiovascular Services [address] [place] [address] MR#: [id number] Acct: [id number] Name: TARSHA GONZALEZ DOMINGA Rep #: [id number] [...] of 77%. This note was generated with [employer]ingle[employer] software. It may contain incorrectwords, spelling, and punctuation that were not noted in checking the note beforesigning. 10/24/24944 Date _ Mary Villasenor MD CC: Dr. Naomi Whyte DO; Dr. Angel Patel MD ~ Date Dictated: 10/24/24942 Date Transcribed: 10/24/24942 Chopped Strand Operator: JOHN Signed [facility] Work Phone: Echo Completeon 10-24-2024 Echo Complete [facility] [facility] [address] [place] [address] Echo Complete 10/24/24 1052 MR#: [id number] Acct: [id number] Name: TARSHA GONZALEZ Rep #: [id number] : 1955 69 From: Mary Villasenor MD Attending Dr: Dr. Angel Patel MD Status: RE G CLI Ordering Dr: Angel Patel MD Date: 10/24/24 Location: [facility] Sex: F C Admitted: Reason For Study [...] cm RVDd: 2.3 cm FS: 25.9 % __ LAV(MOD-bp): 54.0 ml LVAd ap4: 22.2 cm2 [...] % EF(MOD-sp2): 65.4 % EF(sp4-el): 65.9 % __ SV(MOD-sp4): 34.3 ml SV(MOD-sp2): 38.0 ml SV(sp4-el): 36.5 ml SI(MOD-sp4): 17.5 ml/m2 SI(MOD-sp2): 19.4 ml/m2 __ LA A4 area: 18.7 cm2 LA dimension(2D): 3.5 cm RA A4 area: 8.1 cm2 __ TAPSE: 2.4 cm Time Measurements MV dec time: 0.20 sec Doppler Measurements Calculations MV E max jann: 99.2 cm/sec Lat Peak E' Jann: 7.9 cm/sec Med Peak E' Jann: 6.7 cm/sec MV A max jann: 113.2 cm/sec E/E' lat: 12.5 E/E' med: 14.8 MV E/A: 0.88 __ MV V2 max: 121.5 cm/sec MV P1/2t [...] VTI: 35.2 cm AV (velocity ratio): 0.72 __ LV V1 max: 113.2 cm/sec PA V2 max: 111.3 cm/sec LV V1 max P.1 mmHg PA V2 mean: 74.2 cm/sec LV V1 mean P.3 mmHg LV V1 mean: 69.6 cm/sec LV V1 VTI: 25.2 cm ECHO/Echo Complete Interpretation Summary The LV ejection fraction is 65 %. Diastolic function is indeterminate. The left atrium is mildly enlarged. Mild mitral annular calcification. __ Ordering Physician: Angel Patel Referring Physician: Naomi Whyte Performed By: Nissa Lundy, KOKO, RVT 10/24/24 1342 Date Mary Villasenor MD CC: Dr. Naomi Whyte, DO; Dr. Angel Patel MD Date Dictated: 10/24/24 1052 Date Transcribed: 10/24/241341 Chopped Strand Operator: Signed Normal [facility] Echocardiogram study reportO rdered By: Mary Villasenor on 10-24-2024 Study report [facility] [address] [place] [address] Echo Complete 10/24/24 105 MR#: [id number] Acct: [id number] Name: TARSHA GONZALEZ DOMINGA Rep #:[id number] : 1955 69 From: Mary Villasenor MD Attending Dr: Dr. Angel Patel MD Status: REG CLI Ordering Dr: Angel Patel MD Date: 10/24/24 Location: [facility] Sex: F C Admitted: Reason For [...] cm RVDd: 2.3 cm FS: 25.9 % __ LAV(MOD-bp): 54.0 ml LVAd ap4: 22.2 cm2 [...] % EF(MOD-sp2): 65.4 % EF(sp4-el): 65.9 % ____ SV(MOD-sp4): 34.3 ml SV(MOD-sp2): 38.0 ml SV(sp4-el): 36.5 ml SI(MOD-sp4): 17.5 ml/m2 SI(MOD-sp2): 19.4 ml/m2 ____ LA A4 area: 18.7 cm2 LA dimension(2D): 3.5 cm RA A4 area: 8.1 cm2 ____ TAPSE: 2.4 cm Time Measurements MV dec time: 0.20 sec Doppler Measurements & Calculations MV E max jann: 99.2 cm/sec Lat Peak E' Jann: 7.9 cm/sec Med Peak E' Jann: 6.7 cm/sec MV A max jann: 113.2 cm/sec E/E' lat: 12.5 E/E' med: 14.8 MV E/A: 0.88 ____ MV V2 max: 121.5 cm/sec MV P1/2t [...] VTI: 35.2 cm AV (velocity ratio): 0.72 __ LV V1 max: 113.2 cm/sec PA V2 max: 111.3 cm/sec LV V1 max P.1 mmHg PA V2 mean: 74.2 cm/sec LV V1 mean P.3 mmHg LV V1 mean: 69.6 cm/sec LV V1 VTI: 25.2 cm ECHO/Echo Complete Interpretation Summary The LV ejection fraction is 65 %. Diastolic function is indeterminate. The left atrium is mildly enlarged. Mild mitral annular calcification. __ Ordering Physician: Angel Patel Referring Physician: Naomi Whyte Performed By: Nissa Lundy, RDCS, RVT 10/24/24 1342 Date _ Mary Villasenor MD CC: Dr. Naomi Whyte DO; Dr. Angel Patel MD ~ Date Dictated: 10/24/24 1052 Date Transcribed: 10/24/24 134 Chopped Strand Operator: Signed [facility] Work Phone: Stress Reporton 10-24-2024 Stress Report [facility] [address] [place] [id number] MR#: [id number] Acct: [id number] Name: TARSHA GONZALEZ Rep #: [id number] : 1955 69 From: Mary Villasenor MD Primary Care: Dr. Naomi Whyte DO Status: R EG CLI Referring Dr: [...] of 77%. This note was generated with Mingleplayation software. It may contain incorrect words, spelling, and punctuation that were not noted in checking the note before signing. 10/24/2445 Date Mary Villasenor MD CC: Dr. Naomi Whyte, DO; Dr. Angel Patel MD Date Dictated: 10/24/24942 Date Transcribed: 10/24/24942 Chopped Strand Operator: AR Signed Normal [facility] Absolute lymphocyte countOrd ered By: Naomi Whyte on 10-17-2024 Lymphocytes Auto (Unsp spec) [#/Vol] 2.41 10*3/uL 0.83-4.51 [facility] Absolute neutrophil countOrd ered By: Naomi Whyte on 10-17-2024 Neutrophils (Bld) [#/Vol] 4.2 10*3/uL 2.0-7.7 [facility] Anion gap in Serum or Plasma Ordered By: Naomi Whyte on 10-17-2024 Anion gap [Moles/Vol] 13 mmol/L 5-15 [facility] Automated lymphocyte count a s percentage of total leukocytesOrdered By: Naomi Whyte on 10-17-2024 Lymphocytes/100 WBC Auto (Unsp spec) 32.5 % -41 [facility] BUN/creatinine ratioOrdered By: Naomi Whyte on 10-17-2024 Urea nitrogen/Creatinine [Mass ratio] 9.6 mg/mg Low 10-20 [facility] Basophil percentageOrdered B y: Naomi Whyte on 10-17-2024 Basophils/100 WBC (Bld) 0.9 % 0-1 [facility] Bilirubin, totalOrdered By: Naomi Whyte on 10-17-2024 Bilirubin [Mass/Vol] 0.42 mg/dL 0.00-1.30 [facility] CBC W/Diff, Automatedon 10-07 Absolute Lymph 2.41 X10 3/uL Normal 0.83-4.51 [facility] Comment on above: Performed By: #### L 100.0100, L501.5200, L500.4100, L500.4050, L503.0106 #### [facility] Laboratory [address] [place], [address] Absolute Neut 4.2 X10 3/uL Normal 2.0-7.7 [facility] Comment on above: Performed By: #### L 100.0100, L501.5200, L500.4100, L500.4050, L503.0106 #### [facility] [address] [place], [address] Basophils/100 WBC (Bld) 0.9 % Normal 0-1 [facility] Comment on above: Performed By: #### L 100.0100, L501.5200, L500.4100, L500.4050, L503.0106 #### [facility] [address] [place], [address] Eosinophils/100 WBC (Bld) 1.3 % Normal 0-5 [facility] Comment on above: Performed By: #### L 100.0100, L501.5200, L500.4100, L500.4050, L503.0106 #### [facility] [address] [place], [address] Erythrocyte distribution width (RBC) [Ratio] 13.2 % Normal 11.6-14.6 [facility] Comment on above: Performed By: #### L 100.0100, L501.5200, L500.4100, L500.4050, L503.0106 #### [facility] [address] [place], [address] Hematocrit (Bld) [Volume fraction] 41.7 % Normal 37-47 [facility] Comment on above: Performed By: #### L 100.0100, L501.5200, L500.4100, L500.4050, L503.0106 #### [facility] [address] [place], [address] Hemoglobin (Bld) [Mass/Vol] 13.6 g/dL Normal 12.0-15.0 [facility] Comment on above: Performed By: #### L 100.0100, L501.5200, L500.4100, L500.4050, L503.0106 #### [facility] [address] [place], [address] IG% 1.100 High 0.0-0.9 [facility] Comment on above: Result Comment: IG% - Immature Granulocytes (promyelocytes, myelocytes and metamyelocytes) > 1% indicates that a LEFT SHIFT is Present. Performed By: #### L 100.0100, L501.5200, L500.4100, L500.4050, L503.0106 #### [facility] [address] [place] [place], [address] Lymphocytes/100 WBC (Bld) 32.5 % Normal 19-41 [facility] Comment on above: Performed By: #### L 100.0100, L501.5200, L500.4100, L500.4050, L503.0106 #### [facility] [address] [place], [address] MCH (RBC) [Entitic mass] 29.4 pg Normal 27.0-32.0 [facility] Comment on above: Performed By: #### L 100.0100, L501.5200, L500.4100, L500.4050, L503.0106 #### [facility] [address] [place], [address] MCHC (RBC) [Mass/Vol] 32.6 g/dL Normal 32-36 [facility] Comment on above: Performed By: #### L 100.0100, L501.5200, L500.4100, L500.4050, L503.0106 #### [facility] [address] [place], [address] MCV (RBC) [Entitic vol] 90.3 fL Normal 81-99 [facility] Comment on above: Performed By: #### L 100.0100, L501.5200, L500.4100, L500.4050, L503.0106 #### [facility] [address] [place], [address] Monocytes/100 WBC (Bld) 7.3 % Normal 0-10 [facility] Comment on above: Performed By: #### L 100.0100, L501.5200, L500.4100, L500.4050, L503.0106 #### [facility] [address] [place], [address] Neutrophils/100 WBC (Bld) 56.9 % Normal 47-70 [facility] Comment on above: Performed By: #### L 100.0100, L501.5200, L500.4100, L500.4050, L503.0106 #### [facility] [address] [place], [address] Nucleated RBC (Bld) [#/Vol] 0 10*3/uL Normal 0-5 [facility] Comment on above: Performed By: #### L 100.0100, L501.5200, L500.4100, L500.4050, L503.0106 #### [facility] [address] [place], [address] Platelet mean volume (Bld) [Entitic vol] 9.3 fL Normal 6.2-12.0 [facility] Comment on above: Performed By: #### L 100.0100, L501.5200, L500.4100, L500.4050, L503.0106 #### [facility] [address] [place], [address] Platelets (Bld) [#/Vol] 345 10*3/uL Normal 150-450 [facility] Comment on above: Performed By: #### L 100.0100, L501.5200, L500.4100, L500.4050, L503.0106 #### [facility] [address] [place], [address] RBC (Bld) [#/Vol] 4.62 10*6/uL Normal 4.2-5.4 [facility] Comment on above: Performed By: #### L 100.0100, L501.5200, L500.4100, L500.4050, L503.0106 #### [facility] [address] [place], [address] RDW SD 43.0 fl Normal 35.1-43.9 [facility] Comment on above: Performed By: #### L 100.0100, L501.5200, L500.4100, L500.4050, L503.0106 #### [facility] [address] [place], [address] WBC (Bld) [#/Vol] 7.4 10*3/uL Normal 4.4-11.0 [facility] Comment on above: Performed By: #### L 100.0100, L501.5200, L500.4100, L500.4050, L503.0106 #### [facility] [address] [place], [address] Calculated very low density lipoprotein (VLDL) cholesterol measurementOrdered By: Naomianisa Coulterbayron on 10-17-2024 Calculated very low density lipoprotein (VLDL) cholesterol measurement 22 mg/dL 5-40 [facility] Carbon dioxide, total [Moles /volume] in Central venous bloodOrdered By: Naomi Whyte on 10-17-2024 CO2 [Moles/Vol] 18.8 mmol/L Low 21.0-32.0 [facility] Chloride assayOrdered By: Ai Whyte on 10-17-2024 Chloride [Moles/Vol] 106 mmol/L 98-108 [facility] Comprehensive Metabolic Prof ilon 10-17-2024 Albumin [Mass/Vol] 4.2 g/dL Normal 3.4-4.8 [facility] Comment on above: Performed By: #### L 100.0100, L501.5200, L500.4100, L500.4050, L503.0106 #### [facility] [address] [place], [address] Albumin/Globulin [Mass ratio] 1.5 {ratio} Normal 0.9-2.4 [facility] Comment on above: Performed By: #### L 100.0100, L501.5200, L500.4100, L500.4050, L503.0106 #### [facility] [address] [place], [address] ALK PHOS 98 U/L Normal 35-104 [facility] Comment on above: Performed By: #### L 100.0100, L501.5200, L500.4100, L500.4050, L503.0106 #### [facility] [address] [place], [address] ALT [Catalytic activity/Vol] 23 U/L Normal <=34 [facility] Comment on above: Performed By: #### L 100.0100, L501.5200, L500.4100, L500.4050, L503.0106 #### [facility] [address] [place], [address] AST [Catalytic activity/Vol] 18 U/L Normal <=31 [facility] Comment on above: Performed By: #### L 100.0100, L501.5200, L500.4100, L500.4050, L503.0106 #### [facility] [address] [place], [address] Bilirubin [Mass/Vol] 0.42 mg/dL Normal 0.00-1.30 [facility] Comment on above: Performed By: #### L 100.0100, L501.5200, L500.4100, L500.4050, L503.0106 #### [facility] [address] [place], [address] BUN/CRE 9.6 RATIO Low 10-20 [facility] Comment on above: Performed By: #### L 100.0100, L501.5200, L500.4100, L500.4050, L503.0106 #### [facility] [address] [place], [address] Calcium [Mass/Vol] 9.4 mg/dL Normal 7.6-11.0 [facility] Comment on above: Performed By: #### L 100.0100, L501.5200, L500.4100, L500.4050, L503.0106 #### [facility] [address] [place], [address] Chloride [Moles/Vol] 106 mmol/L Normal 98-108 [facility] Comment on above: Performed By: #### L 100.0100, L501.5200, L500.4100, L500.4050, L503.0106 #### [facility] [address] [place], [address] CO2 [Moles/Vol] 18.8 mmol/L Low 21.0-32.0 [facility] Comment on above: Performed By: #### L 100.0100, L501.5200, L500.4100, L500.4050, L503.0106 #### [facility] [address] [place], [address] Creatinine [Mass/Vol] 1.09 mg/dL Normal 0.70-1.20 [facility] Comment on above: Performed By: #### L 100.0100, L501.5200, L500.4100, L500.4050, L503.0106 #### [facility] [address] [place], [address] GAP 13 Normal 5-15 [facility] Comment on above: Performed By: #### L 100.0100, L501.5200, L500.4100, L500.4050, L503.0106 #### [facility] [address] [place], [address] GFR/1.73 sq M.predicted among non-blacks MDRD (S/P/Bld) [Vol rate/Area] 55 mL/min/{1.73_m2} Low >60 [facility] Comment on above: Result Comment: mL/m in/1.73m2 CKD-EPI Creatinine Equation (2020) Performed By: #### L 100.0100, L501.5200, L500.4100, L500.4050, L503.0106 #### [facility] [address] [place], [address] Globulin (S) [Mass/Vol] 2.9 g/dL Normal 2.2-4.2 [facility] Comment on above: Performed By: #### L 100.0100, L501.5200, L500.4100, L500.4050, L503.0106 #### [facility] [address] [place], [address] Glucose [Mass/Vol] 89 mg/dL Normal 70-99 [facility] Comment on above: Performed By: #### L 100.0100, L501.5200, L500.4100, L500.4050, L503.0106 #### [facility] [address] [place], [address] Potassium [Moles/Vol] 4.1 mmol/L Normal 3.3-5.1 [facility] Comment on above: Performed By: #### L 100.0100, L501.5200, L500.4100, L500.4050, L503.0106 #### [facility] [address] [place], [address] Sodium [Moles/Vol] 138 mmol/L Normal 133-145 [facility] Comment on above: Performed By: #### L 100.0100, L501.5200, L500.4100, L500.4050, L503.0106 #### [facility] [address] [place], [address] T PROT 7.0 g/dL Normal 5.9-8.4 [facility] Comment on above: Performed By: #### L 100.0100, L501.5200, L500.4100, L500.4050, L503.0106 #### [facility] [address] [place], [address] Urea nitrogen [Mass/Vol] 11 mg/dL Normal 4-19 [facility] Comment on above: Performed By: #### L 100.0100, L501.5200, L500.4100, L500.4050, L503.0106 #### [facility] [address] [place], [address] Eosinophil percentageOrdered By: Naomi Whyte on 10-17-2024 Eosinophils/100 WBC (Bld) 1.3 % 0-5 [facility] Erythrocyte distribution wid th ratioOrdered By: Naomi Whyte on 10-17-2024 Erythrocyte distribution width (RBC) [Ratio] 13.2 % 11.6-14.6 [facility] Erythrocyte distribution wid th standard deviationOrdered By: Naomi Whyte on 10-17-2024 Erythrocyte distribution width (RBC) [Ratio] 43.0 fl 35.1-43.9 [facility] Glomerular filtration rate ( GFR) estimation/1.73 sq m using serum, plasma, or whole bOrdered By: Naomi Whyte on 10-17-2024 GFR/1.73 sq M.predicted among non-blacks MDRD (S/P/Bld) [Vol rate/Area] 55 mL/min/{1.73_m2} Low >60 [facility] Comment on above: mL/min/1.73m2 CKD-EP I Creatinine Equation (2020) Hematocrit Auto (Bld) [Volum e fraction]Ordered By: Naomi Whyte on 10-17-2024 Hematocrit (Bld) [Volume fraction] 41.7 % 37-47 [facility] Hemoglobin measurementOrdere d By: Naomi Whyte on 10-17-2024 Hemoglobin (Bld) [Mass/Vol] 13.6 g/dL 12.0-15.0 [facility] Immature granulocytes/100 WB C Auto (Bld)Ordered By: Naomi Whyte on 10-17-2024 Immature granulocytes/100 WBC (Bld) 1.100 % High 0.0-0.9 [facility] Comment on above: IG% - Immature Granu locytes (promyelocytes, myelocytes and metamyelocytes) > 1% indicates that a LEFT SHIFT is Present. LDL calc ser/plasOrdered By: Naomi Whyte on 10-17-2024 Cholesterol in LDL [Mass/Vol] 196 mg/dL [facility] Comment on above: Vxrloylkco=399-845 m g/dL & Higher Xcno=474 mg/dL or greater Laboratory - Chemistry and C hemistry - challengeOrdered By: Naomi Whyte on 10-17-2024 AST [Catalytic activity/Vol] 18 U/L <32 [facility] Lipid Profileon 10-17-2024 CHOL:HDL 4.20 Normal [facility] Comment on above: Performed By: #### L 100.0100, L501.5200, L500.4100, L500.4050, L503.0106 #### [facility] [address] [place], [address] Cholesterol [Mass/Vol] 285 mg/dL High <=200 [facility] Comment on above: Result Comment: Chol esterol level, Desirable <200 mg/dL Borderline high cholesterol 200-239 mg/dL High cholesterol >=240 mg/dL Recommendations of the NCEP Adult Treatment Panel for the following risk-cutoff thresholds for the [place] population. Performed By: #### L 100.0100, L501.5200, L500.4100, L500.4050, L503.0106 #### [facility] [address] [place], [address] Cholesterol in HDL [Mass/Vol] 68 mg/dL Normal [facility] Comment on above: Result Comment: Evangelina onal Cholesterol Education Program (NCEP) guidelines: <40 mg/dL: Low HDL-cholesterol (major risk factor for CHD) >= 60 mg/dL: High HDL-cholesterol (negative risk factor for CHD) HDL-cholesterol is affected by a number of factors, e.g. smoking, exercise, hormones, sex and age. Performed By: #### L 100.0100, L501.5200, L500.4100, L500.4050, L503.0106 #### [facility] [address] [place], [address] Cholesterol in LDL [Mass/Vol] 196 mg/dL Normal [facility] Comment on above: Result Comment: Bord tgajkn=891-743 mg/dL Higher Orvq=221 mg/dL or greater Performed By: #### L 100.0100, L501.5200, L500.4100, L500.4050, L503.0106 #### [facility] [address] [place], [address] Cholesterol in VLDL [Mass/Vol] 22 mg/dL Normal 5-40 [facility] Comment on above: Performed By: #### L 100.0100, L501.5200, L500.4100, L500.4050, L503.0106 #### [facility] [address] [place], [address] Triglyceride [Mass/Vol] 108 mg/dL Normal [facility] Comment on above: Result Comment: The drugs N-Acetylcysteine and Metamizole may falsely depress this assay. Normal range: <150 mg/dL Borderline High: 150-199 mg/dL High: 200-499 mg/dL Very High: >500 mg/dL Performed By: #### L 100.0100, L501.5200, L500.4100, L500.4050, L503.0106 #### [facility] [address] [place], [place], [address] MCV (mean corpuscular volume ) determinationOrdered By: Naomi Whyte on 10-17-2024 MCV (RBC) [Entitic vol] 90.3 fL 81-99 [facility] Magnesiumon 10-17-2024 Magnesium [Mass/Vol] 2.3 mg/dL High 1.5-2.2 [facility] Comment on above: Performed By: #### L 100.0100, L501.5200, L500.4100, L500.4050, L503.0106 #### [facility] [address] [place], [place], [address] Magnesium measurement (mass/ volume)Ordered By: Naomi Whyte on 10-17-2024 Magnesium (Unsp spec) [Mass/Vol] 2.3 mg/dL High 1.5-2.2 [facility] Mean corpuscular hemoglobin (MCH) determinationOrdered By: Naomi Whyte on 10-17-2024 MCH (RBC) [Entitic mass] 29.4 pg 27.0-32.0 [facility] Mean corpuscular hemoglobin concentration (MCHC) determinationOrdered By: Naomi Whyte on 10-17-2024 MCHC (RBC) [Mass/Vol] 32.6 g/dL 32-36 [facility] Mean platelet volume determi nationOrdered By: Naomi Whyte on 10-17-2024 Platelet mean volume (Bld) [Entitic vol] 9.3 fL 6.2-12.0 [facility] Monocyte percentageOrdered B y: Naomi Whyte on 10-17-2024 Monocytes/100 WBC (Bld) 7.3 % 0-10 [facility] Neutrophil percentageOrdered By: Naomi Whyte on 10-17-2024 Neutrophils/100 WBC (Bld) 56.9 % 47-70 [facility] Nucleated red blood cell per centageOrdered By: Naomi Whyte on 10-17-2024 Nucleated RBC/100 WBC (Bld) [Ratio] 0 % 0-5 [facility] Platelet countOrdered By: Ai Whyte on 10-17-2024 Platelets (Bld) [#/Vol] 345 10*3/uL 150-450 [facility] Potassium measurement (mass/ volume)Ordered By: Naomi Whyte on 10-17-2024 Potassium (Unsp spec) [Mass/Vol] 4.1 mmol/L 3.3-5.1 [facility] RBC Auto (Bld) [#/Vol]Ordere d By: Naomi Whyte on 10-17-2024 RBC (Bld) [#/Vol] 4.62 10*6/uL 4.2-5.4 [facility] Screening total cholesterol/ high density lipoprotein (HDL) cholesterol ratioOrdered By: Naomi Whyte on 10-17-2024 Cholesterol.total/Choles terol in HDL [Mass ratio] 4.20 {ratio} [facility] Serum creatinine measurement (mass/volume)Ordered By: Naomi Whyte on 10-17-2024 Creatinine [Mass/Vol] 1.09 mg/dL 0.70-1.20 [facility] Serum globulin measurementOr dered By: Naomi Whyte on 10-17-2024 Globulin (S) [Mass/Vol] 2.9 g/dL 2.2-4.2 [facility] Serum glucose measurement (m ass/volume)Ordered By: Naomi Whyte on 10-17-2024 Glucose [Mass/Vol] 89 mg/dL 70-99 [facility] Serum or plasma alanine jackson otransferase (ALT) measurementOrdered By: Naomi Whyte on 10-17-2024 ALT [Catalytic activity/Vol] 23 U/L <35 [facility] Serum or plasma albumin aida urement (mass/volume)Ordered By: aNomi Whyte on 10-17-2024 Albumin [Mass/Vol] 4.2 g/dL 3.4-4.8 [facility] Serum or plasma albumin/glob ulin mass ratioOrdered By: Naomi Whyte on 10-17-2024 Albumin/Globulin [Mass ratio] 1.5 {ratio} 0.9-2.4 [facility] Serum or plasma alkaline jeri sphatase measurementOrdered By: Naomi Whyte on 10-17-2024 ALP [Catalytic activity/Vol] 98 U/L 35-104 [facility] Serum or plasma calcium aida urement (mass/volume)Ordered By: Naomi Whyte on 10-17-2024 Calcium [Mass/Vol] 9.4 mg/dL 7.6-11.0 [facility] Serum or plasma cholesterol in HDL measurement (mass/volume)Ordered By: Naomi Whyte on 10-17-2024 Cholesterol in HDL [Mass/Vol] 68 mg/dL >40 [facility] Comment on above: National Cholesterol Education Program (NCEP) guidelines:<40 mg/dL: Low HDL-cholesterol (major risk factor for CHD)>= 60 mg/dL: High HDL-cholesterol (negative risk factor for CHD)HDL-cholesterol is affected by a number of factors, e.g. smoking, exercise, hormones, sex and age. Serum or plasma cholesterol measurement (mass/volume)Ordered By: Naomi Whyte on 10-17-2024 Cholesterol [Mass/Vol] 285 mg/dL High <201 [facility] Comment on above: Cholesterol level, D esirable <200 mg/dLBorderline high cholesterol 200-239 mg/dLHigh cholesterol >=240 mg/dLRecommendations of the NCEP Adult Treatment Panel for the following risk-cutoff thresholds for the [place] population. Serum or plasma urea nitroge n measurement (mass/volume)Ordered By: Naomi Whyte on 10-17-2024 Urea nitrogen [Mass/Vol] 11 mg/dL 4-19 [facility] Sodium levelOrdered By: Naomi Whyte on 10-17-2024 Sodium [Moles/Vol] 138 mmol/L 133-145 [facility] Total proteinOrdered By: Graciela Whyte on 10-17-2024 Protein [Mass/Vol] 7.0 g/dL 5.9-8.4 [facility] Triglycerides measurementOrd ered By: Naomi Whyte on 10-17-2024 Triglyceride [Mass/Vol] 108 mg/dL <199 [facility] Comment on above: The drugs N-Acetylcy steine and Metamizole may falsely depress this assay. Normal range: <150 mg/dLBorderline High: 150-199 mg/dLHigh: 200-499 mg/dLVery High: >500 mg/dL Vitamin B12on 10-17-2024 Cobalamin (Vitamin B12) [Mass/Vol] 357 pg/mL Normal 180-914 [facility] Comment on above: Performed By: #### L 100.0100, L501.5200, L500.4100, L500.4050, L503.0106 #### [facility] [address] [place], [address] Vitamin B12 ser/plasOrdered By: Naomi Yfnbayron on 10-17-2024 Cobalamin (Vitamin B12) [Mass/Vol] 357 pg/mL 180-914 [facility] White blood cell (WBC) count Ordered By: Naomi Whyte on 10-17-2024 WBC (Bld) [#/Vol] 7.4 10*3/uL 4.4-11.0 [facility] Pulmonary Visit Reporton Pulmonary Visit Report [facility] [address] [place], [place] [address] OFFICE VISIT Date of Service: 09/10/24 MR#: [id number] Acct: [id number] Name: TARSHA GONZALEZ DOMINGA Rep #: [id number] 1 : 1955 Provider: NELI De Jesus Age/Sex: 69/F [place] [facility] [place] Status: Signed Assessment and Plan Assessment and [...] (pediatric) Plan This note was generated with Savor[employer] dictation software. It may contain incorrect words, [...] Reasons: 6 M FU Chief Complaint: Nucala [employer] Required: No DME Vendor: Kim Accompanied by: [...] 04/20/23 0 (more content not included)... Normal [facility] Pulmonary Visit Reporton Pulmonary Visit Report [facility] [address] [place] [address] OFFICE VISIT Date of Service: 03/12/24 MR#: [id number] Acct: [id number] Name: TARSHA GONZALEZ Rep #: [id number] 4 : 1955 Provider: NELI De Jesus Age/Sex: 69/F [place] [facility] [place] Status: Signed with Addenda ADDENDUM by NELI De Jesus on 06/04/24 at 7600 Assessment and Plan Assessment and Plan (1) [...] uncomplicated Plan Details Follow Up: 6 Months ([facility]) 06/04/24 1137 Date Cathie De Jesus NP cc: Dr. Naomi Whyte, DO * Signed [...] She recently returned from a trip to [place], unfortunately her brother from cancer. She has [...] 6 M FU Chief Complaint: smells sulfur [employer]of[employer] Required: No DME Vendor: pap- dont use Accompanied by: Self Is patient in pain?: No Allergies codeine Allergy (Verified 03/12/24 12:43) Itching morphine Allergy (Verified 03/12/24 12:43) Itching do (more content not included)... Normal [facility] Absolute lymphocyte countOrd ered By: Jagdish Day on 12-15-2022 Lymphocytes Auto (Unsp spec) [#/Vol] 2.44 10*3/uL 0.83-4.51 [facility] Basophil percentageOrdered B y: Jagdish Day on 12-15-2022 Basophils/100 WBC (Bld) 0.7 % 0-1 [facility] Chloride [Moles/Vol] 109 mmol/L 98-107 [facility] Eosinophils/100 WBC (Bld) 1.5 % 0-5 [facility] Glucose [Mass/Vol] 109 mg/dL 74-106 [facility] Comment on above: Fasting Glucose resu lt from 100 to 125 mg/dL suggests IMPAIRED HOMEOSTASIS per A.D.A. criteria. Neutrophils (Bld) [#/Vol] 2.8 10*3/uL 2.0-7.7 [facility] Neutrophils/100 WBC (Bld) 46.2 % 47-70 [facility] Potassium [Moles/Vol] 3.5 mmol/L 3.5-5.1 [facility] Sodium [Moles/Vol] 138 mmol/L 136-145 [facility] WBC (Bld) [#/Vol] 6.1 10*3/uL 4.4-11.0 [facility] Blood erythrocytes count (nu mber/volume)Ordered By: Jagdish Day on 12-15-2022 RBC (Bld) [#/Vol] 4.90 10*6/uL 4.2-5.4 [facility] Blood hemoglobin measurement (mass/volume)Ordered By: Jagdish Day on 12-15-2022 Hemoglobin (Bld) [Mass/Vol] 14.4 g/dL 12.0-15.0 [facility] Blood lymphocytes/100 leukoc ytesOrdered By: Jagdish Day on 12-15-2022 Lymphocytes/100 WBC (Bld) 40.1 % 19-41 [facility] Blood monocytes/100 leukocyt esOrdered By: Jagdish Day on 12-15-2022 Monocytes/100 WBC (Bld) 11.0 % 0-10 [facility] Blood platelet mean volumeOr dered By: Jagdish Day on 12-15-2022 Platelet mean volume (Bld) [Entitic vol] 9.2 fL 6.2-12.0 [facility] Determination of erythrocyte mean corpuscular volume (MCV)Ordered By: Jagdish Day on 12-15-2022 MCV (RBC) [Entitic vol] 88.6 fL 81-99 [facility] Hematocrit Auto (Bld) [Volum e fraction]Ordered By: Jagdish Day on 12-15-2022 Hematocrit (Bld) [Volume fraction] 43.4 % 37-47 [facility] Laboratory - Chemistry and C hemistry - challengeOrdered By: Jagdish Day on 12-15-2022 CO2 [Moles/Vol] 22.0 mmol/L 21.0-32.0 [facility] Urea nitrogen/Creatinine [Mass ratio] 11.1 mg/mg 10-20 [facility] Laboratory - Hematology and Cell countsOrdered By: Jagdish Day on 12-15-2022 Erythrocyte distribution width (RBC) [Entitic vol] 40.5 fL 35.1-43.9 [facility] Erythrocyte distribution width (RBC) [Ratio] 12.5 % 11.6-14.6 [facility] Immature granulocytes/100 WBC (Bld) 0.500 % 0.0-0.9 [facility] Comment on above: IG% - Immature Granu locytes (promyelocytes, myelocytes and metamyelocytes) > 1% indicates that a LEFT SHIFT is Present. MCH (RBC) [Entitic mass] 29.4 pg 27.0-32.0 [facility] Nucleated RBC/100 WBC (Bld) [Ratio] 0 % 0-5 [facility] MCHC Auto (RBC) [Mass/Vol]Or dered By: Jagdish Day on 12-15-2022 MCHC (RBC) [Mass/Vol] 33.2 g/dL 32-36 [facility] No Panel InformationOrdered By: Jagdish Day on 12-15-2022 Estimated Creatinine Clearance Calc 45.16 ml/min [facility] Estimated GFR (MDRD) Amer 71 mL/min >60 [facility] Comment on above: GFR Calc Estimated GFR (MDRD) Non-Af Amer 59 mL/min >60 [facility] Comment on above: Non- GFR Calc Troponin I High Sensitivity 19 pg/mL 3.0-54.0 [facility] Comment on above: Please Note: New Margareth t Units and Gender Specific Reference Ranges. For more information see Policy Stat Procedure [place] High Sensitivity Troponin (TNIH) and attachments. Platelets bldOrdered By: Reynaldo Day on 12-15-2022 Platelets (Bld) [#/Vol] 321 10*3/uL 150-450 [facility] SARS-CoV-2 (COVID-19) Ag IA. rapid Ql (Resp)Ordered By: Jagdish Day on 12-15-2022 SARS-CoV-2 Antigen (Rapid) SARS-CoV-2 (COVID 19) [facility] SARS-CoV-2 Antigen (Rapid) SARS-CoV-2 (COVID 19) [facility] Serum or plasma calcium aida urement (mass/volume)Ordered By: Jagdish Day on 12-15-2022 Calcium [Mass/Vol] 9.7 mg/dL 8.5-10.1 [facility] Serum or plasma creatinine m easurement (mass/volume)Ordered By: Jagdish Day on 12-15-2022 Creatinine [Mass/Vol] 1.00 mg/dL 0.55-1.02 [facility] Comment on above: The validity of the calculated GFR & GFRAA in patients over 70 years has not been determined. Clinical correlation is essential. Serum or plasma urea nitroge n measurement (mass/volume)Ordered By: Jagdish Day on 12-15-2022 Urea nitrogen [Mass/Vol] 11 mg/dL 7-18 [facility] Thin prep Papanicolaou smear with manual screeningOrdered By: Jagdish Day on 12-15-2022 Thin prep Papanicolaou smear with manual screening 7 5-15 [facility] Culture, urineOrdered By: [facility] albert Clifton on 02-10-2022 Bacteria identified Cx Nom (U) Klebsiella pneumoniae sp pneum [facility] Laboratory - Chemistry and C hemistry - challengeon 02-08-2022 Bilirubin Ql (U) Negative [facility] Glucose Ql (U) Negative [facility] Ketones Ql (U) Small (15+) [facility] pH (U) 5.0 [pH] [facility] Specific gravity (U) [Rel density] 1.030 [facility] Urobilinogen (U) [Mass/Vol] Negative [facility] Laboratory - Hematology and Cell countson 02-08-2022 Hemoglobin Ql (U) Negative [facility] Laboratory - Specimen inform ationon 02-08-2022 Clarity (U) Cloudy [facility] Color (U) AYAH [facility] Laboratory - Urinalysison Nitrite Ql (U) Positive [facility] Protein Ql (U) Negative [facility] No Panel Informationon 02-08 Urine Leukocytes Positive [facility] Urine Non-Hemolyzed Blood Negative [facility] Basophil percentageon 2021 Bilirubin [Mass/Vol] 0.40 mg/dL 0.20-1.00 [facility] Work Phone: Comment on above: For patients on eltr ombopag therapy, use of Dimension [place] TBIL is not recommended. Chloride [Moles/Vol] 110 mmol/L 98-107 [facility] Work Phone: Cholesterol [Mass/Vol] 276 mg/dL <200 [facility] Work Phone: Comment on above: <200 mg/dL Desirable 200-240 mg/dL Borderline >240 mg/dL High Risk Glucose [Mass/Vol] 94 mg/dL 74-106 [facility] Work Phone: Potassium [Moles/Vol] 3.7 mmol/L 3.5-5.1 [facility] Work Phone: [phone] Protein [Mass/Vol] 6.6 g/dL 6.4-8.2 [facility] Work Phone: [phone] Sodium [Moles/Vol] 141 mmol/L 136-145 [facility] Work Phone: [phone] Triglyceride [Mass/Vol] 73 mg/dL <199 [facility] Work Phone: [phone] Comment on above: The drugs N-Acetylcy steine and Metamizole may falsely depress this assay.Serum Triglycerides Reference Interval Normal <150 mg/dL Borderline high 150 - 199 mg/dL High 200 - 499 mg/dL Very High > or = 500 mg/dL Laboratory - Chemistry and C hemistry - challengeon 12-15-2021 ALP [Catalytic activity/Vol] 88 U/L 45-117 [facility] Work Phone: ALT [Catalytic activity/Vol] 20 U/L 13-56 [facility] Work Phone: [phone] CO2 [Moles/Vol] 25.0 mmol/L 21.0-32.0 [facility] Work Phone: [phone] Globulin (S) [Mass/Vol] 3.3 g/dL 2.2-4.2 [facility] Work Phone: [phone] Urea nitrogen/Creatinine [Mass ratio] 9.9 mg/mg 10-20 [facility] Work Phone: No Panel Informationon 12-15 Estimated GFR (MDRD) Amer 91 mL/min >60 [facility] Work Phone: [phone] Comment on above: GFR Calc Estimated GFR (MDRD) Non-Af Amer 76 mL/min >60 [facility] Work Phone: [phone] Comment on above: Non- GFR Calc Serum or plasma albumin aida urement (mass/volume)on 12-15-2021 Albumin [Mass/Vol] 3.3 g/dL 3.2-5.0 [facility] Work Phone: [phone] Serum or plasma albumin/glob ulin mass ratioon 12-15-2021 Albumin/Globulin [Mass ratio] 1.0 {ratio} 0.9-2.4 [facility] Work Phone: Serum or plasma calcium aida urement (mass/volume)on 12-15-2021 Calcium [Mass/Vol] 9.0 mg/dL 8.5-10.1 [facility] Work Phone: Serum or plasma cholesterol in HDL measurement (mass/volume)on 12-15-2021 Cholesterol in HDL [Mass/Vol] 57 mg/dL >40 [facility] Work Phone: Comment on above: The drugs N-Acetylcy steine and Metamizole may falsely depress this assay. Reference Range HDL <40 mg/dL Low HDL Cholesterol HDL >or= 60 mg/dL High HDL Cholesterol Serum or plasma cholesterol in VLDL measurement (mass/volume)on 12-15-2021 Cholesterol in VLDL [Mass/Vol] 15 mg/dL 5-40 [facility] Work Phone: Serum or plasma creatinine m easurement (mass/volume)on 12-15-2021 Creatinine [Mass/Vol] 0.80 mg/dL 0.55-1.02 [facility] Work Phone: Comment on above: The validity of the calculated GFR & GFRAA in patients over 70 years has not been determined. Clinical correlation is essential. Serum or plasma low density lipoprotein (LDL) cholesterol measurement (mass/volume)on 12-15-2021 Cholesterol in LDL [Mass/Vol] 204 mg/dL 0-130 [facility] Work Phone: Serum or plasma urea nitroge n measurement (mass/volume)on 12-15-2021 Urea nitrogen [Mass/Vol] 8 mg/dL 7-18 [facility] Work Phone: [phone] Thin prep Papanicolaou smear with manual screeningon 12-15-2021 Thin prep Papanicolaou smear with manual screening 15 U/L 15-37 [facility] Work Phone: Thin prep Papanicolaou smear with manual screening 6 5-15 [facility] Work Phone: Laboratory - Chemistry and C hemistry - challengeon 11-09-2021 Bilirubin Ql (U) Negative [facility] Work Phone: Glucose Ql (U) Negative [facility] Work Phone: Ketones Ql (U) Small (15+) [facility] Work Phone: pH (U) 5.0 [pH] [facility] Work Phone: Specific gravity (U) [Rel density] 1.030 [facility] Work Phone: Urobilinogen (U) [Mass/Vol] Negative [facility] Work Phone: Laboratory - Hematology and Cell countson 11-09-2021 Hemoglobin Ql (U) Hemolyzed [facility] Work Phone: Laboratory - Specimen inform ationon 11-09-2021 Clarity (U) Cloudy [facility] Work Phone: Color (U) AYAH [facility] Work Phone: Laboratory - Urinalysison Nitrite Ql (U) Negative [facility] Work Phone: Protein Ql (U) Negative [facility] Work Phone: No Panel Informationon 11-09 Urine Leukocytes Positive [facility] Work Phone: Urine Non-Hemolyzed Blood Small [facility] Work Phone: No Panel Informationon 04-06 POC SARS CoV-2 Antigen Positive [facility] Work Phone: Basophil percentageon 2020 Basophil percentage 0-5 SEEN /hpf [facility] Work Phone: Bilirubin Test strip Ql (U)o n 04-04-2021 Bilirubin Ql (U) Negative Negative [facility] Work Phone: Ketones Test strip Ql (U)on 04-04-2021 Ketones Ql (U) 5 mg/dl Negative [facility] Work Phone: Mucus LM Ql (Urine sed)on Mucus Ql (Urine sed) 0 SEEN /hpf [facility] Work Phone: Nitrite Test strip Ql (U)on 04-04-2021 Nitrite Ql (U) Negative Negative [facility] Work Phone: Protein Test strip Ql (U)on 04-04-2021 Protein Ql (U) 30 mg/dl Negative [facility] Work Phone: Squamous epithelial cells de tection in urine sediment by light microscopyon 04-04-2021 Epithelial cells.squamous LM Ql (Urine sed) 0-5 SEEN /hpf [facility] Work Phone: Urine blood detectionon 03-10 RBC Ql (U) 10 /ul Negative [facility] Work Phone: RBC Ql (U) 0 SEEN /hpf [facility] Work Phone: Urine clarityon 04-04-2021 Clarity (U) Sl. Cloudy Clear [facility] Work Phone: Urine color determinationon 04-04-2021 Color (U) Yellow Yellow [facility] Work Phone: Urine glucose detectionon Glucose Ql (U) Normal mg/dl Normal [facility] Work Phone: Urine leukocyte esterase det ection by dipstickon 04-04-2021 Leukocyte esterase Test strip Ql (U) 100 /ul Negative [facility] Work Phone: Urine pHon 04-04-2021 pH (U) 5.0 [pH] [facility] Work Phone: Urine sediment bacteria coun t by microscopy (number/high power field)on 04-04-2021 Bacteria LM.HPF (Urine sed) [#/Area] RARE /hpf None Seen [facility] Work Phone: Urine specific gravity measu rementon 04-04-2021 Specific gravity (U) [Rel density] 1.025 [facility] Work Phone: Urobilinogen Auto test strip Ql (U)on 04-04-2021 Urobilinogen Ql (U) 1 mg/dl [facility] Work [facility]: Office Visit: UC: UTIon 08-0 Albumin Ql (U) trace [facility] Work Phone: Appearance Nom (U) clear [facility] Work Phone: Bilirubin Ql (U) Negative [facility] Work Phone: Color Nom (U) yellow [facility] Work Phone: Fall risk assessment No [facility] Work Phone: Glucose Test strip mass conc (U) Negative [facility] Work Phone: Ketones mass conc (U) Negative [facility] Work Phone: Leukocyte esterase Test strip Ql (U) 2+ [facility] Work Phone: Nitrite Ql (U) Negative [facility] Work Phone: pH (U) 5.0 [pH] [facility] Work Phone: Protein mass conc Done [facility] Work Phone: Specific gravity Refractometry Relative Density (U) 1.030 [facility] Work Phone: Tobacco smoking status NHIS Never [facility] Work Phone: Tobacco smoking status NHIS Former smoker [facility] Work Phone: Urobilinogen Test strip Ql (U) Negative [facility] Work Phone: Office Visit: UC: UTI?on Fall risk assessment No [facility] Work Phone: Protein mass conc Done [facility] Work Phone: Tobacco smoking status NHIS Former smoker [facility] Work Phone: Tobacco smoking status NHIS Never [facility] Work Phone: Office Visit: COPD and OSAon 09-20-2016 Dietary management education, guidance, and counseling (procedure) yes Invalid Interpretation Code [facility] Work Phone: Documentation of current medications (procedure) Done Invalid Interpretation Code [facility] Work Phone: Protein mass conc Done [facility] Work Phone: Tobacco smoking status NHIS Never Invalid Interpretation Code [facility] Work Phone: Tobacco smoking status MDIS Former smoker [facility] Work Phone: Tobacco use [facility] Former smoker Invalid Interpretation Code [facility] Work Phone: Clinical Lists 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 Left ventricular Ejection fraction 60 % [facility] Work Phone: Office Visit: OSAon 02-03-20 16 Protein mass conc Done [facility] Work Phone: Tobacco smoking status NHIS Never [facility] Work Phone: Tobacco smoking status MDIS Former smoker [facility] Work Phone: Replaced Document: Susan BATISTA Observationson 12-30-2015 EKG QRS axis 58 deg [facility] Work Phone: electrocardiogram interpretation Sinus Rhythm WITHIN NORMAL LIMITS Invalid Interpretation Code [facility] Work Phone: [phone] GE use only - for [employer] import when terms are not otherwise specified 405 ms Invalid Interpretation Code [facility] Work Phone: Interpretation Sinus Rhythm WITHIN NORMAL LIMITS [facility] Work Phone: P [employer] 64 deg [facility] Work Phone: P wave axis, electrocardiogram 64 deg Invalid Interpretation Code [facility] Work Phone: MS Interval 132 ms [facility] Work Phone: MS interval, electrocardiogram 132 ms Invalid Interpretation Code [facility] Work Phone: [phone] Pulse (Heart Rate) 62 /min Invalid Interpretation Code [facility] Work Phone: [phone] QRS axis, electrocardiogram 58 deg Invalid Interpretation Code [facility] Work Phone: [phone] QRS Duration 87 ms [facility] Work Phone: [phone] QRS duration, electrocardiogram 87 ms Invalid Interpretation Code [facility] Work Phone: [phone] QT Interval new path ms [facility] Work Phone: QT interval, electrocardiogram new path ms Invalid Interpretation Code [facility] Work Phone: [phone] QTc Dennis 405 ms [facility] Work Phone: T [employer] 37 deg [facility] Work Phone: T wave axis, electrocardiogram 37 deg Invalid Interpretation Code [facility] Work Phone: [phone] Clinical Lists Update: 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 11-18-2015 ALT enzyme act/vol 18 U/L [facility] Work Phone: [phone] AST enzyme act/vol 11 U/L [facility] Work Phone: Bilirubin mass conc 0.30 mg/dL [facility] Work Phone: [phone] Calcium mass conc 9.0 mg/dL [facility] Work Phone: [phone] Chloride molar conc 108 mmol/L [facility] Work Phone: [phone] Cholesterol in HDL mass conc 71 mg/dL [facility] Work Phone: [phone] Cholesterol in LDL mass conc 174 mg/dL [facility] Work Phone: [phone] Cholesterol mass conc 266 mg/dL [facility] Work Phone: [phone] CO2 24.0 mmol/L Invalid Interpretation Code [facility] Work Phone: [phone] CO2 ppres (BldV) 24.0 mmol/L [facility] Work Phone: [phone] Creatinine mass conc 0.77 mg/dL [facility] Work Phone: [phone] Glucose 122 mg/dL Invalid Interpretation Code [facility] Work Phone: [phone] Glucose mass conc 122 mg/dL [facility] Work Phone: [phone] Hematocrit (HCT) 40.2 % Invalid Interpretation Code [facility] Work Phone: [phone] Hematocrit Volume Fraction (Bld) 40.2 % [facility] Work Phone: [phone] Hemoglobin mass conc (Bld) 13.6 g/dL [facility] Work Phone: [phone] Platelets 382 10*3/mm3 Invalid Interpretation Code [facility] Work Phone: [phone] Platelets #/vol (Bld) 382 10*3/mm3 [facility] Work Phone: [phone] Potassium molar conc 3.8 mmol/L [facility] Work Phone: [phone] Protein mass conc 7.4 g/dL [facility] Work Phone: [phone] Sodium molar conc 139 mmol/L [facility] Work Phone: [phone] Thyrotropin Qn 1.51 u[iU]/mL [facility] Work Phone: [phone] Triglyceride mass conc 104 mg/dL [facility] Work Phone: [phone] Urea nitrogen/Creatinine mass ratio 11.7 mg/mg [facility] Work Phone: [phone] WBC #/vol (Bld) 7.8 10*3/uL [facility] Work Phone: [phone] WBC (Leukocytes) 7.8 10*3/uL Invalid Interpretation Code [facility] Work Phone: Culture, urine Bacteria identified Cx Nom (U) Klebsiella pneumoniae sp pneum [facility] Work Phone: Vital Signs Date Time Vital Sign Value Performing Clinician Facility 01-20-2025 08:24-0400 Body mass index (BMI) [Ratio] 36.5 kg/m2 Dr. Naomi Whyte DO Work Phone: [facility] 01-20-2025 08:24-0400 Body temperature 96.9 [degF] Dr. Naomi Whyte DO Work Phone: [facility] 01-20-2025 08:24-0400 Body weight 93.[address] Naomi Whyte DO Work Phone: [facility] 01-20-2025 08:24-0400 Diastolic blood pressure 81 mm[Hg] Dr. Naomi Whyte DO Work Phone: [facility] 01-20-2025 08:24-0400 Heart rate 92 /min Dr. Naomi Whyte DO Work Phone: [facility] 01-20-2025 08:24-0400 Respiratory rate 18 /min Dr. Naomi Whyte DO Work Phone: [facility] 01-20-2025 08:24-0400 SaO2% (BldA) [Mass fraction] 97 % Dr. Naomi Whyte DO Work Phone: [facility] 01-20-2025 08:24-0400 Systolic blood pressure 127 mm[Hg] Dr. Naomi Whyte DO Work Phone: [facility] 01-16-2025 13:00-0400 Body temperature 96.9 [degF] Dr. Naomi Whyte DO Work Phone: [facility] 01-16-2025 13:00-0400 Diastolic blood pressure 59 mm[Hg] Dr. Naomi Whyte DO Work Phone: [facility] 01-16-2025 13:00-0400 Heart rate 70 /min Dr. Naomi Whyte DO Work Phone: [facility] 01-16-2025 13:00-0400 Respiratory rate 16 /min Dr. Naomi Whyte DO Work Phone: [facility] 01-16-2025 13:00-0400 SaO2% (BldA) [Mass fraction] 97 % Dr. Naomi Whyte DO Work Phone: [facility] 01-16-2025 13:00-0400 Systolic blood pressure 118 mm[Hg] Dr. Naomi Whyte DO Work Phone: [facility] 12-24-2024 23:43-0400 Body temperature 98.8 [degF] Dr. Naomi Whyte DO Work Phone: [facility] 12-24-2024 23:43-0400 Diastolic blood pressure 72 mm[Hg] Dr. Naomi Whyte DO Work Phone: [facility] 12-24-2024 23:43-0400 Heart rate 81 /min Dr. Naomi Whyte DO Work Phone: [facility] 12-24-2024 23:43-0400 Respiratory rate 12 /min Dr. Naomi Whyte DO Work Phone: [facility] 12-24-2024 23:43-0400 SaO2% (BldA) [Mass fraction] 95 % Dr. Naomi Whyte DO Work Phone: [facility] 12-24-2024 23:43-0400 Systolic blood pressure 126 mm[Hg] Dr. Naomi Whyte DO Work Phone: [facility] 12-24-2024 21:05-0400 Body height 160.[address] Naomi Whyte DO Work Phone: [facility] 12-24-2024 21:05-0400 Body mass index (BMI) [Ratio] 37.8 kg/m2 Dr. Naomi Whyte DO Work Phone: [facility] 12-24-2024 21:05-0400 Body weight 97.[address] Naomi Whyte DO Work Phone: [facility] 11-14-2024 13:05-0400 Body height 160.[address] Naomi Whyte DO Work Phone: [facility] 11-14-2024 13:05-0400 Body mass index (BMI) [Ratio] 36.6 kg/m2 Dr. Naomi Whyte DO Work Phone: [facility] 11-14-2024 13:05-0400 Body temperature 96.3 [degF] Dr. Naomi Whyte DO Work Phone: [facility] 11-14-2024 13:05-0400 Body weight 93.[address] Naomi Whyte DO Work Phone: [facility] 11-14-2024 13:05-0400 Diastolic blood pressure 57 mm[Hg] Dr. Naomi Whyte DO Work Phone: [facility] 11-14-2024 13:05-0400 Heart rate 98 /min Dr. Naomi Whyte DO Work Phone: [facility] 11-14-2024 13:05-0400 Respiratory rate 18 /min Dr. Naomi Whyte DO Work Phone: [facility] 11-14-2024 13:05-0400 SaO2% (BldA) [Mass fraction] 93 % Dr. Naomi Whyte DO Work Phone: [facility] 11-14-2024 13:05-0400 Systolic blood pressure 101 mm[Hg] Dr. Naomi Whyte DO Work Phone: [facility] 10-17-2024 13:24-0400 Body height 160.[address] Naomi Whyte DO Work Phone: [facility] 10-17-2024 13:24-0400 Body mass index (BMI) [Ratio] 37.2 kg/m2 Dr. Naomi Whyte DO Work Phone: [facility] 10-17-2024 13:24-0400 Body temperature 96.3 [degF] Dr. Naomi Whyte DO Work Phone: [facility] 10-17-2024 13:24-0400 Body weight 95.[address] Naomi Whyte DO Work Phone: [facility] 10-17-2024 13:24-0400 Diastolic blood pressure 80 mm[Hg] Dr. Naomi Whyte DO Work Phone: [facility] 10-17-2024 13:24-0400 Heart rate 71 /min Dr. Naomi Whyte DO Work Phone: [facility] 10-17-2024 13:24-0400 Respiratory rate 16 /min Dr. Naomi Whyte DO Work Phone: [facility] 10-17-2024 13:24-0400 SaO2% (BldA) [Mass fraction] 91 % Dr. Naomi Whyte DO Work Phone: [facility] 10-17-2024 13:24-0400 Systolic blood pressure 136 mm[Hg] Dr. Naomi Whyte DO Work Phone: [facility] 09-10-2024 14:39-0400 Body height 160.[address] Naomi Whyte DO Work Phone: [facility] 09-10-2024 14:39-0400 Body mass index (BMI) [Ratio] 36.6 kg/m2 Dr. Naomi Whyte DO Work Phone: [facility] 09-10-2024 14:39-0400 Body temperature 96.8 [degF] Dr. Naomi Whyte DO Work Phone: [facility] 09-10-2024 14:39-0400 Body weight 93.[address] Naomi Whyte DO Work Phone: [facility] 09-10-2024 14:39-0400 Diastolic blood pressure 61 mm[Hg] Dr. Naomi Whyte DO Work Phone: [facility] 09-10-2024 14:39-0400 Heart rate 66 /min Dr. Naomi Whyte DO Work Phone: [facility] 09-10-2024 14:39-0400 Respiratory rate 16 /min Dr. Naomi Whyte DO Work Phone: [facility] 09-10-2024 14:39-0400 SaO2% (BldA) [Mass fraction] 95 % Dr. Naomi Whyte DO Work Phone: [facility] 09-10-2024 14:39-0400 Systolic blood pressure 154 mm[Hg] Dr. Naomi Whyte DO Work Phone: [facility] 09-10-2024 08:24-0400 Body mass index (BMI) [Ratio] 36.6 kg/m2 Dr. Naomi Whyte DO Work Phone: [facility] 09-10-2024 08:24-0400 Body temperature 97.4 [degF] Dr. Naomi Whyte DO Work Phone: [facility] 09-10-2024 08:24-0400 Body weight 93.[address] Naomi Whyte DO Work Phone: [facility] 09-10-2024 08:24-0400 Diastolic blood pressure 81 mm[Hg] Dr. Naomi Whyte DO Work Phone: [facility] 09-10-2024 08:24-0400 Heart rate 86 /min Dr. Naomi Whyte DO Work Phone: [facility] 09-10-2024 08:24-0400 Respiratory rate 20 /min Dr. Naomi Whyte DO Work Phone: [facility] 09-10-2024 08:24-0400 SaO2% (BldA) [Mass fraction] 95 % Dr. Naomi Whyte DO Work Phone: [facility] 09-10-2024 08:24-0400 Systolic blood pressure 128 mm[Hg] Dr. Naomi Whyte DO Work Phone: [facility] 07-04-2024 11:36-0400 Body height 160.[address] Naomi Whyte DO Work Phone: [facility] 07-04-2024 11:36-0400 Body mass index (BMI) [Ratio] 36.1 kg/m2 Dr. Naomi Whyte DO Work Phone: [facility] 07-04-2024 11:36-0400 Body temperature 96.5 [degF] Dr. Naomi Whyte DO Work Phone: [facility] 07-04-2024 11:36-0400 Body weight 92.[address] Naomi Whyte DO Work Phone: [facility] 07-04-2024 11:36-0400 Diastolic blood pressure 68 mm[Hg] Dr. Naomi Whyte DO Work Phone: [facility] 07-04-2024 11:36-0400 Heart rate 77 /min Dr. Naomi Whyte DO Work Phone: [facility] 07-04-2024 11:36-0400 Respiratory rate 16 /min Dr. Naomi Whyte DO Work Phone: [facility] 07-04-2024 11:36-0400 SaO2% (BldA) [Mass fraction] 94 % Dr. Naomi Whyte DO Work Phone: [facility] 07-04-2024 11:36-0400 Systolic blood pressure 110 mm[Hg] Dr. Naomi Whyte DO Work Phone: [facility] 04-25-2024 12:27-0500 Body mass index (BMI) [Ratio] 35.4 kg/m2 Dr. Naomi Whyte DO Work Phone: [facility] 04-25-2024 12:27-0500 Body temperature 97.8 [degF] Dr. Naomi Whyte DO Work Phone: [facility] 04-25-2024 12:27-0500 Body weight 90.[address] Naomi Whyte DO Work Phone: [facility] 04-25-2024 12:27-0500 Diastolic blood pressure 75 mm[Hg] Dr. Naomi Whyte DO Work Phone: [facility] 04-25-2024 12:27-0500 Heart rate 93 /min Dr. Naomi Whyte DO Work Phone: [facility] 04-25-2024 12:27-0500 Respiratory rate 18 /min Dr. Naomi Whyte DO Work Phone: [facility] 04-25-2024 12:27-0500 SaO2% (BldA) [Mass fraction] 98 % Dr. Naomi Whyte DO Work Phone: [facility] 04-25-2024 12:27-0500 Systolic blood pressure 141 mm[Hg] Dr. Naomi Whyte DO Work Phone: [facility] 03-21-2024 12:13-0500 Body temperature 97.2 [degF] Dr. Naomi Whyte DO Work Phone: [facility] 03-21-2024 12:13-0500 Diastolic blood pressure 80 mm[Hg] Dr. Naomi Whyte DO Work Phone: [facility] 03-21-2024 12:13-0500 Heart rate 89 /min Dr. Naomi Whyte DO Work Phone: [facility] 03-21-2024 12:13-0500 Respiratory rate 16 /min Dr. Naomi Whyte DO Work Phone: [facility] 03-21-2024 12:13-0500 SaO2% (BldA) [Mass fraction] 98 % Dr. Naomi Whyte DO Work Phone: [facility] 03-21-2024 12:13-0500 Systolic blood pressure 136 mm[Hg] Dr. Naomi Whyte DO Work Phone: [facility] 03-12-2024 07:42-0500 Body mass index (BMI) [Ratio] 35.4 kg/m2 Dr. Naomi Whyte DO Work Phone: [facility] 03-12-2024 07:42-0500 Body temperature 95.3 [degF] Dr. Naomi Whyte DO Work Phone: [facility] 03-12-2024 07:42-0500 Body weight 90.[address] Naomi Whyte DO Work Phone: [facility] 03-12-2024 07:42-0500 Diastolic blood pressure 80 mm[Hg] Dr. Naomi Whyte DO Work Phone: [facility] 03-12-2024 07:42-0500 Heart rate 72 /min Dr. Naomi Whyte DO Work Phone: [facility] 03-12-2024 07:42-0500 Respiratory rate 20 /min Dr. Naomi Whyte DO Work Phone: [facility] 03-12-2024 07:42-0500 SaO2% (BldA) [Mass fraction] 97 % Dr. Naomi Whyte DO Work Phone: [facility] 03-12-2024 07:42-0500 Systolic blood pressure 127 mm[Hg] Dr. Naomi Whyte DO Work Phone: [facility] 08-15-2023 13:38-0400 Body height 160.[address] Kamilah Patel Work Phone: [facility] 08-15-2023 13:38-0400 Body temperature 97.4 [degF] Dr. Kamilah Patel Work Phone: [facility] 08-15-2023 13:38-0400 Diastolic blood pressure 68 mm[Hg] Dr. Kamilah Patel Work Phone: [facility] 08-15-2023 13:38-0400 Heart rate 89 /min Dr. Kamilah Patel Work Phone: [facility] 08-15-2023 13:38-0400 Respiratory rate 16 /min Dr. Kamilah Patel Work Phone: [facility] 08-15-2023 13:38-0400 SaO2% (BldA) [Mass fraction] 96 % Dr. Kamilah Patel Work Phone: [facility] 08-15-2023 13:38-0400 Systolic blood pressure 113 mm[Hg] Dr. Kamilah Patel Work Phone: [facility] 08-02-2023 07:57-0400 Body mass index (BMI) [Ratio] 33.8 kg/m2 Dr. Kamilah Patel Work Phone: [facility] 08-02-2023 07:57-0400 Body temperature 98.4 [degF] Dr. Kamilah Patel Work Phone: [facility] 08-02-2023 07:57-0400 Body weight 86.[address] Kamilah Patel Work Phone: [facility] 08-02-2023 07:57-0400 Diastolic blood pressure 74 mm[Hg] Dr. Kamilah Patel Work Phone: [facility] 08-02-2023 07:57-0400 Heart rate 75 /min Dr. Kamilah Patel Work Phone: [facility] 08-02-2023 07:57-0400 SaO2% (BldA) [Mass fraction] 95 % Dr. Kamilah Patel Work Phone: [facility] 08-02-2023 07:57-0400 Systolic blood pressure 113 mm[Hg] Dr. Kamilah Patel Work Phone: [facility] 06-15-2023 12:37-0500 Body height 160.[address] Kamilah Patel Work Phone: [facility] 06-15-2023 12:37-0500 Body mass index (BMI) [Ratio] 33.6 kg/m2 Dr. Kamilah Patel Work Phone: [facility] 06-15-2023 12:37-0500 Body temperature 97 [degF] Dr. Kamilah Patel Work Phone: [facility] 06-15-2023 12:37-0500 Body weight 86.[address] Kamilah Patel Work Phone: [facility] 06-15-2023 12:37-0500 Diastolic blood pressure 65 mm[Hg] Dr. Kamilah Patel Work Phone: [facility] 06-15-2023 12:37-0500 Heart rate 77 /min Dr. Kamilah Patel Work Phone: [facility] 06-15-2023 12:37-0500 Respiratory rate 14 /min Dr. Kamilah Patel Work Phone: [facility] 06-15-2023 12:37-0500 SaO2% (BldA) [Mass fraction] 96 % Dr. Kamilah Patel Work Phone: [facility] 06-15-2023 12:37-0500 Systolic blood pressure 110 mm[Hg] Dr. Kamilah Patel Work Phone: [facility] 05-18-2023 12:30-0500 Body height 160.[address] Kamliah Patel Work Phone: [facility] 05-18-2023 12:30-0500 Body mass index (BMI) [Ratio] 33.6 kg/m2 Dr. Kamilah Patel Work Phone: [facility] 05-18-2023 12:30-0500 Body temperature 97.6 [degF] Dr. Kamilah Patel Work Phone: [facility] 05-18-2023 12:30-0500 Body weight 86.[address] Kamilah Patel Work Phone: [facility] 05-18-2023 12:30-0500 Diastolic blood pressure 77 mm[Hg] Dr. Kamilah Patel Work Phone: [facility] 05-18-2023 12:30-0500 Heart rate 78 /min Dr. Kamilah Patel Work Phone: [facility] 05-18-2023 12:30-0500 Respiratory rate 16 /min Dr. Kamilah Patel Work Phone: [facility] 05-18-2023 12:30-0500 SaO2% (BldA) [Mass fraction] 98 % Dr. Kamilah Patel Work Phone: [facility] 05-18-2023 12:30-0500 Systolic blood pressure 124 mm[Hg] Dr. Kamilah Patel Work Phone: [facility] 05-16-2023 08:00-0500 Body mass index (BMI) [Ratio] 33.8 kg/m2 Dr. Kamilah Patel Work Phone: [facility] 05-16-2023 08:00-0500 Body temperature 98.7 [degF] Dr. Kamilah Patel Work Phone: [facility] 05-16-2023 08:00-0500 Body weight 86.[address] Kamilah Patel Work Phone: [facility] 05-16-2023 08:00-0500 Diastolic blood pressure 62 mm[Hg] Dr. Kamilah Patel Work Phone: [facility] 05-16-2023 08:00-0500 Heart rate 92 /min Dr. Kamilah Patel Work Phone: [facility] 05-16-2023 08:00-0500 Respiratory rate 16 /min Dr. Kamilah Patel Work Phone: [facility] 05-16-2023 08:00-0500 SaO2% (BldA) [Mass fraction] 96 % Dr. Kamilah Patel Work Phone: [facility] 05-16-2023 08:00-0500 Systolic blood pressure 130 mm[Hg] Dr. Kamilah Patel Work Phone: [facility] 04-20-2023 13:17-0500 Body height 160.[address] Kamilah Patel Work Phone: [facility] 04-20-2023 13:17-0500 Body mass index (BMI) [Ratio] 32.8 kg/m2 Dr. Kamilah Patel Work Phone: [facility] 04-20-2023 13:17-0500 Body temperature 97.3 [degF] Dr. Kamilah Patel Work Phone: [facility] 04-20-2023 13:17-0500 Body weight 83.[address] Kamilah Patel Work Phone: [facility] 04-20-2023 13:17-0500 Diastolic blood pressure 64 mm[Hg] Dr. Kamilah Patel Work Phone: [facility] 04-20-2023 13:17-0500 Heart rate 73 /min Dr. Kamilah Patel Work Phone: [facility] 04-20-2023 13:17-0500 Respiratory rate 16 /min Dr. Kamilah Patel Work Phone: [facility] 04-20-2023 13:17-0500 SaO2% (BldA) [Mass fraction] 96 % Dr. Kamilah Patel Work Phone: [facility] 04-20-2023 13:17-0500 Systolic blood pressure 122 mm[Hg] Dr. Kamilah Patel Work Phone: [facility] 04-20-2023 12:32-0500 Body mass index (BMI) [Ratio] 32.8 kg/m2 Dr. Kamilah Patel Work Phone: [facility] 04-20-2023 12:32-0500 Body temperature 97.3 [degF] Dr. Kamilah Patel Work Phone: [facility] 04-20-2023 12:32-0500 Body weight 83.[address] Kamilah Patel Work Phone: [facility] 04-20-2023 12:32-0500 Diastolic blood pressure 71 mm[Hg] Dr. Kamilah Patel Work Phone: [facility] 04-20-2023 12:32-0500 Heart rate 90 /min Dr. Kamilah Patel Work Phone: [facility] 04-20-2023 12:32-0500 Respiratory rate 18 /min Dr. Kamilah Patel Work Phone: [facility] 04-20-2023 12:32-0500 SaO2% (BldA) [Mass fraction] 94 % Dr. Kamilah Patel Work Phone: [facility] 04-20-2023 12:32-0500 Systolic blood pressure 117 mm[Hg] Dr. Kamilah Patel Work Phone: [facility] 02-23-2023 13:08-0500 Body height 160.[address] Kamilah Patel Work Phone: [facility] 02-23-2023 13:08-0500 Body temperature 97.6 [degF] Dr. Kamilah Patel Work Phone: [facility] 02-23-2023 13:08-0500 Diastolic blood pressure 57 mm[Hg] Dr. Kamilah Patel Work Phone: [facility] 02-23-2023 13:08-0500 Heart rate 64 /min Dr. Kamilah Patel Work Phone: [facility] 02-23-2023 13:08-0500 Respiratory rate 16 /min Dr. Kamilah Patel Work Phone: [facility] 02-23-2023 13:08-0500 SaO2% (BldA) [Mass fraction] 98 % Dr. Kamilah Patel Work Phone: [facility] 02-23-2023 13:08-0500 Systolic blood pressure 103 mm[Hg] Dr. Kamilah Patel Work Phone: [facility] 2023 11:59-0400 Body mass index (BMI) [Ratio] 32.4 kg/m2 Dr. Kamilah Patel Work Phone: [facility] 2023 11:59-0400 Body temperature 94.6 [degF] Dr. Kamilah Patel Work Phone: [facility] 2023 11:59-0400 Body weight [address] Kamilah Patel Work Phone: [facility] 2023 11:59-0400 Diastolic blood pressure 74 mm[Hg] Dr. Kamilah Patel Work Phone: [facility] 2023 11:59-0400 Heart rate 75 /min Dr. Kamilah Patel Work Phone: [facility] 2023 11:59-0400 Respiratory rate 18 /min Dr. Kamilah Patel Work Phone: [facility] 2023 11:59-0400 SaO2% (BldA) [Mass fraction] 98 % Dr. Kamilah Patel Work Phone: [facility] 2023 11:59-0400 Systolic blood pressure 114 mm[Hg] Dr. Kamilah Patel Work Phone: [facility] 01-26-2023 13:19-0400 Body height 160.02 cm [facility] 01-26-2023 13:19-0400 Body mass index (BMI) [Ratio] 32.4 kg/m2 [facility] 01-26-2023 13:19-0400 Body temperature 97 [degF] [facility] 01-26-2023 13:19-0400 Body weight 83 kg [facility] 01-26-2023 13:19-0400 Diastolic blood pressure 75 mm[Hg] [facility] 01-26-2023 13:19-0400 Heart rate 83 /min [facility] 01-26-2023 13:19-0400 Respiratory rate 18 /min [facility] 01-26-2023 13:19-0400 SaO2% (BldA) [Mass fraction] 93 % [facility] 01-26-2023 13:19-0400 Systolic blood pressure 120 mm[Hg] [facility] 12-29-2022 13:09-0400 Body height 160.02 cm [facility] 12-29-2022 13:09-0400 Body temperature 96.8 [degF] [facility] 12-29-2022 13:09-0400 Diastolic blood pressure 57 mm[Hg] [facility] 12-29-2022 13:09-0400 Heart rate 75 /min [facility] 12-29-2022 13:09-0400 Respiratory rate 16 /min [facility] 12-29-2022 13:09-0400 SaO2% (BldA) [Mass fraction] 95 % [facility] 12-29-2022 13:09-0400 Systolic blood pressure 110 mm[Hg] [facility] 12-15-2022 09:38-0400 Diastolic blood pressure 70 mm[Hg] [facility] 12-15-2022 09:38-0400 Heart rate 99 /min [facility] 12-15-2022 09:38-0400 Respiratory rate 20 /min [facility] 12-15-2022 09:38-0400 SaO2% (BldA) [Mass fraction] 99 % [facility] 12-15-2022 09:38-0400 Systolic blood pressure 119 mm[Hg] [facility] 12-15-2022 07:23-0400 Body temperature 98 [degF] [facility] 12-15-2022 07:11-0400 Body height 160.02 cm [facility] 12-15-2022 07:11-0400 Body mass index (BMI) [Ratio] 33.6 kg/m2 [facility] 12-15-2022 07:11-0400 Body weight 86.09 kg [facility] 12-01-2022 13:54-0400 Body height 160.02 cm [facility] 12-01-2022 13:54-0400 Body mass index (BMI) [Ratio] 33.1 kg/m2 [facility] 12-01-2022 13:54-0400 Body temperature 96.7 [degF] [facility] 12-01-2022 13:54-0400 Body weight 84.82 kg [facility] 12-01-2022 13:54-0400 Diastolic blood pressure 53 mm[Hg] [facility] 12-01-2022 13:54-0400 Heart rate 76 /min [facility] 12-01-2022 13:54-0400 Respiratory rate 16 /min [facility] 12-01-2022 13:54-0400 SaO2% (BldA) [Mass fraction] 92 % [facility] 12-01-2022 13:54-0400 Systolic blood pressure 100 mm[Hg] [facility] 11-02-2022 15:11-0400 Body mass index (BMI) [Ratio] 32.8 kg/m2 [facility] 11-02-2022 15:11-0400 Body temperature 96.2 [degF] [facility] 11-02-2022 15:11-0400 Body weight 83.91 kg [facility] 11-02-2022 15:11-0400 Diastolic blood pressure 70 mm[Hg] [facility] 11-02-2022 15:11-0400 Heart rate 84 /min [facility] 11-02-2022 15:11-0400 Respiratory rate 18 /min [facility] 11-02-2022 15:11-0400 SaO2% (BldA) [Mass fraction] 95 % [facility] 11-02-2022 15:11-0400 Systolic blood pressure 113 mm[Hg] [facility] 09-28-2022 12:57-0400 Body height 160.[address] Kamilah Patel Work Phone: [facility] 09-28-2022 12:57-0400 Body temperature 97.1 [degF] Dr. Kamilah Patel Work Phone: [facility] 09-28-2022 12:57-0400 Diastolic blood pressure 63 mm[Hg] Dr. Kamilah Patel Work Phone: [facility] 09-28-2022 12:57-0400 Heart rate 64 /min Dr. Kamilah Patel Work Phone: [facility] 09-28-2022 12:57-0400 Respiratory rate 16 /min Dr. Kamilah Patel Work Phone: [facility] 09-28-2022 12:57-0400 SaO2% (BldA) [Mass fraction] 97 % Dr. Kamilah Patel Work Phone: [facility] 09-28-2022 12:57-0400 Systolic blood pressure 117 mm[Hg] Dr. Kamilah Patel Work Phone: [facility] 08-24-2022 13:57-0400 Body mass index (BMI) [Ratio] 31.5 kg/m2 Dr. Kamilah Patel Work Phone: [facility] 08-24-2022 13:57-0400 Body temperature 97.8 [degF] Dr. Kamilah Patel Work Phone: [facility] 08-24-2022 13:57-0400 Body weight 80.[address] Kamilah Patel Work Phone: [facility] 08-24-2022 13:57-0400 Diastolic blood pressure 62 mm[Hg] Dr. Kamilah Patel Work Phone: [facility] 08-24-2022 13:57-0400 Heart rate 68 /min Dr. Kamilah Patel Work Phone: [facility] 08-24-2022 13:57-0400 Respiratory rate 16 /min Dr. Kamilah Patel Work Phone: [facility] 08-24-2022 13:57-0400 SaO2% (BldA) [Mass fraction] 98 % Dr. Kamilah Patel Work Phone: [facility] 08-24-2022 13:57-0400 Systolic blood pressure 112 mm[Hg] Dr. Kamilah Patel Work Phone: [facility] 08-01-2022 07:46-0400 Body mass index (BMI) [Ratio] 31.5 kg/m2 Dr. Kamilah Patel Work Phone: [facility] 08-01-2022 07:46-0400 Body temperature 98.1 [degF] Dr. Kamilah Patel Work Phone: [facility] 08-01-2022 07:46-0400 Body weight 80.[address] Kamilah Patel Work Phone: [facility] 08-01-2022 07:46-0400 Diastolic blood pressure 70 mm[Hg] Dr. Kamilah Patel Work Phone: [facility] 08-01-2022 07:46-0400 Heart rate 77 /min Dr. Kamilah Patel Work Phone: [facility] 08-01-2022 07:46-0400 Respiratory rate 18 /min Dr. Kamilah Patel Work Phone: [facility] 08-01-2022 07:46-0400 SaO2% (BldA) [Mass fraction] 95 % Dr. Kamilah Patel Work Phone: [facility] 08-01-2022 07:46-0400 Systolic blood pressure 103 mm[Hg] Dr. Kamilah Patel Work Phone: [facility] 07-27-2022 14:19-0400 Body height 160.02 cm [facility] 07-27-2022 14:19-0400 Body temperature 97 [degF] [facility] 07-27-2022 14:19-0400 Diastolic blood pressure 67 mm[Hg] [facility] 07-27-2022 14:19-0400 Heart rate 90 /min [facility] 07-27-2022 14:19-0400 Respiratory rate 16 /min [facility] 07-27-2022 14:19-0400 SaO2% (BldA) [Mass fraction] 94 % [facility] 07-27-2022 14:19-0400 Systolic blood pressure 94 mm[Hg] [facility] 06-22-2022 13:05-0400 Body height 160.02 cm [facility] 06-22-2022 13:05-0400 Body mass index (BMI) [Ratio] 31.3 kg/m2 [facility] 06-22-2022 13:05-0400 Body weight 80.28 kg [facility] 06-22-2022 13:05-0400 Diastolic blood pressure 66 mm[Hg] [facility] 06-22-2022 13:05-0400 Heart rate 72 /min [facility] 06-22-2022 13:05-0400 Respiratory rate 16 /min [facility] 06-22-2022 13:05-0400 SaO2% (BldA) [Mass fraction] 100 % [facility] 06-22-2022 13:05-0400 Systolic blood pressure 101 mm[Hg] [facility] 05-25-2022 13:17-0500 Body height 160.[address] Kamilah Patel Work Phone: [facility] 05-25-2022 13:17-0500 Body mass index (BMI) [Ratio] 31.3 kg/m2 Dr. Kamilah Patel Work Phone: [facility] 05-25-2022 13:17-0500 Body temperature 97.5 [degF] Dr. Kamilah Patel Work Phone: [facility] 05-25-2022 13:17-0500 Body weight 80.[address] Kamilah Patel Work Phone: [facility] 05-25-2022 13:17-0500 Diastolic blood pressure 62 mm[Hg] Dr. Kamilah Patel Work Phone: [facility] 05-25-2022 13:17-0500 Heart rate 91 /min Dr. Kamilah Patel Work Phone: [facility] 05-25-2022 13:17-0500 Respiratory rate 18 /min Dr. Kamilah Patel Work Phone: [facility] 05-25-2022 13:17-0500 SaO2% (BldA) [Mass fraction] 94 % Dr. Kamilah Patel Work Phone: [facility] 05-25-2022 13:17-0500 Systolic blood pressure 97 mm[Hg] Dr. Kamilah Patel Work Phone: [facility] 04-27-2022 12:43-0500 Body mass index (BMI) [Ratio] 31.8 kg/m2 Dr. Kamilah Patel Work Phone: [facility] 04-27-2022 12:43-0500 Body temperature 97.5 [degF] Dr. Kamilah Patel Work Phone: [facility] 04-27-2022 12:43-0500 Body weight 81.[address] Kamilah Patel Work Phone: [facility] 04-27-2022 12:43-0500 Diastolic blood pressure 69 mm[Hg] Dr. Kamilah Patel Work Phone: [facility] 04-27-2022 12:43-0500 Heart rate 82 /min Dr. Kamilah Patel Work Phone: [facility] 04-27-2022 12:43-0500 Respiratory rate 16 /min Dr. Kamilah Patel Work Phone: [facility] 04-27-2022 12:43-0500 SaO2% (BldA) [Mass fraction] 93 % Dr. Kamilah Patel Work Phone: [facility] 04-27-2022 12:43-0500 Systolic blood pressure 125 mm[Hg] Dr. Kamilah Patel Work Phone: [facility] 03-21-2022 14:02-0500 Diastolic blood pressure 74 mm[Hg] Dr. Kamilah Patel Work Phone: [facility] 03-21-2022 14:02-0500 Heart rate 71 /min Dr. Kamilah Patel Work Phone: [facility] 03-21-2022 14:02-0500 SaO2% (BldA) [Mass fraction] 93 % Dr. Kamilah Patel Work Phone: [facility] 03-21-2022 14:02-0500 Systolic blood pressure 135 mm[Hg] Dr. Kamilah Patel Work Phone: [facility] 02-08-2022 14:23-0400 Diastolic blood pressure 64 mm[Hg] Dr. Kamilah Patel Work Phone: [facility] 02-08-2022 14:23-0400 Systolic blood pressure 108 mm[Hg] Dr. Kaimlah Patel Work Phone: [facility] 02-08-2022 13:15-0400 Body temperature 98 [degF] Dr. Kamilah Patel Work Phone: [facility] 02-08-2022 13:15-0400 Heart rate 71 /min Dr. Kamilah Patel Work Phone: [facility] 02-08-2022 13:15-0400 Respiratory rate 14 /min Dr. Kamilah Patel Work Phone: [facility] 02-08-2022 13:15-0400 SaO2% (BldA) [Mass fraction] 96 % Dr. Kamilah Patel Work Phone: [facility] 01-30-2022 08:06-0400 Body height 160.[address] aKmilah Patel Work Phone: [facility] Work Phone: 01-30-2022 08:06-0400 Body mass index (BMI) [Ratio] 33.3 kg/m2 Dr. Kamilah Patel Work Phone: [facility] Work Phone: 01-30-2022 08:06-0400 Body temperature 98 [degF] Dr. Kamilah Patel Work Phone: [facility] Work Phone: 01-30-2022 08:06-0400 Body weight 85.[address] Kamilah Patel Work Phone: [facility] Work Phone: 01-30-2022 08:06-0400 Diastolic blood pressure 78 mm[Hg] Dr. Kamilah Patel Work Phone: [facility] Work Phone: 01-30-2022 08:06-0400 Heart rate 71 /min Dr. Kamilah Patel Work Phone: [facility] Work Phone: 01-30-2022 08:06-0400 Respiratory rate 16 /min Dr. Kamilah Patel Work Phone: [facility] Work Phone: 01-30-2022 08:06-0400 SaO2% (BldA) [Mass fraction] 94 % Dr. Kamilah Patel Work Phone: [facility] Work Phone: 01-30-2022 08:06-0400 Systolic blood pressure 132 mm[Hg] Dr. Kamilah Patel Work Phone: [facility] Work Phone: 01-24-2022 13:49-0400 Body height 160.[address] Kamilah Patel Work Phone: [facility] Work Phone: 01-24-2022 13:49-0400 Body mass index (BMI) [Ratio] 32.8 kg/m2 Dr. Kamilah Patel Work Phone: [facility] Work Phone: 01-24-2022 13:49-0400 Body temperature 97.8 [degF] Dr. Kamilah Patel Work Phone: [facility] Work Phone: 01-24-2022 13:49-0400 Body weight 83.[address] Kamilah Patel Work Phone: [facility] Work Phone: 01-24-2022 13:49-0400 Diastolic blood pressure 62 mm[Hg] Dr. Kamilah Patel Work Phone: [facility] Work Phone: 01-24-2022 13:49-0400 Heart rate 76 /min Dr. Kamilah Patel Work Phone: [facility] Work Phone: 01-24-2022 13:49-0400 Respiratory rate 16 /min Dr. Kamilah Patel Work Phone: [facility] Work Phone: 01-24-2022 13:49-0400 SaO2% (BldA) [Mass fraction] 97 % Dr. Kamilah Patel Work Phone: [facility] Work Phone: 01-24-2022 13:49-0400 Systolic blood pressure 117 mm[Hg] Dr. Kamilah Patel Work Phone: [facility] Work Phone: 12-27-2021 14:25-0400 Body temperature 98 [degF] Dr. Kamilah Patel Work Phone: [facility] Work Phone: 12-27-2021 14:25-0400 Diastolic blood pressure 74 mm[Hg] Dr. Kamilah Patel Work Phone: [facility] Work Phone: 12-27-2021 14:25-0400 Heart rate 84 /min Dr. Kamilah Patel Work Phone: [facility] Work Phone: 12-27-2021 14:25-0400 SaO2% (BldA) [Mass fraction] 93 % Dr. Kamilah Patel Work Phone: [facility] Work Phone: 12-27-2021 14:25-0400 Systolic blood pressure 113 mm[Hg] Dr. Kamilah Patel Work Phone: [facility] Work Phone: 11-23-2021 13:04-0400 Body height 160.[address] Kamilah Patel Work Phone: [facility] Work Phone: 11-23-2021 13:04-0400 Body mass index (BMI) [Ratio] 34 kg/m2 Dr. Kamilah Patel Work Phone: [facility] Work Phone: 11-23-2021 13:04-0400 Body temperature 97.5 [degF] Dr. Kamilah Patel Work Phone: [facility] Work Phone: 11-23-2021 13:04-0400 Body weight 87.[address] Kamilah Patel Work Phone: [facility] Work Phone: 11-23-2021 13:04-0400 Diastolic blood pressure 62 mm[Hg] Dr. Kamilah Patel Work Phone: [facility] Work Phone: 11-23-2021 13:04-0400 Heart rate 60 /min Dr. Kamilah Patel Work Phone: [facility] Work Phone: 11-23-2021 13:04-0400 Respiratory rate 16 /min Dr. Kamilah Patel Work Phone: [facility] Work Phone: 11-23-2021 13:04-0400 SaO2% (BldA) [Mass fraction] 96 % Dr. Kamilah Patel Work Phone: [facility] Work Phone: 11-23-2021 13:04-0400 Systolic blood pressure 119 mm[Hg] Dr. Kamilah Patel Work Phone: [facility] Work Phone: 11-09-2021 14:53-0400 Body temperature 97.9 [degF] Dr. Kamilah Patel Work Phone: [facility] Work Phone: 11-09-2021 14:53-0400 Diastolic blood pressure 74 mm[Hg] Dr. Kamilah Patel Work Phone: [facility] Work Phone: 11-09-2021 14:53-0400 Heart rate 90 /min Dr. Kamilah Patel Work Phone: [facility] Work Phone: 11-09-2021 14:53-0400 Respiratory rate 16 /min Dr. Kamilah Patel Work Phone: [facility] Work Phone: 11-09-2021 14:53-0400 SaO2% (BldA) [Mass fraction] 96 % Dr. Kamilah Patel Work Phone: [facility] Work Phone: 11-09-2021 14:53-0400 Systolic blood pressure 116 mm[Hg] Dr. Kamilah Patel Work Phone: [facility] Work Phone: 10-21-2021 08:56-0400 Body temperature 96.5 [degF] Dr. Kamilah Patel Work Phone: [facility] Work Phone: 10-21-2021 08:56-0400 Diastolic blood pressure 70 mm[Hg] Dr. Kamilah Patel Work Phone: [facility] Work Phone: 10-21-2021 08:56-0400 Heart rate 67 /min Dr. Kamilah Patel Work Phone: [facility] Work Phone: 10-21-2021 08:56-0400 SaO2% (BldA) [Mass fraction] 96 % Dr. Kamilah Patel Work Phone: [facility] Work Phone: 10-21-2021 08:56-0400 Systolic blood pressure 137 mm[Hg] Dr. Kamilah Patel Work Phone: [facility] Work Phone: 09-02-2021 13:53-0400 Body height 160.[address] Kamilah Patel Work Phone: [facility] Work Phone: 09-02-2021 13:53-0400 Body temperature 97.4 [degF] Dr. Kamilah Patel Work Phone: [facility] Work Phone: 09-02-2021 13:53-0400 Diastolic blood pressure 62 mm[Hg] Dr. Kamilah Patel Work Phone: [facility] Work Phone: 09-02-2021 13:53-0400 Heart rate 79 /min Dr. Kamilah Patel Work Phone: [facility] Work Phone: 09-02-2021 13:53-0400 Respiratory rate 16 /min Dr. Kamilah Patel Work Phone: [facility] Work Phone: 09-02-2021 13:53-0400 SaO2% (BldA) [Mass fraction] 94 % Dr. Kamilah Patel Work Phone: [facility] Work Phone: 09-02-2021 13:53-0400 Systolic blood pressure 106 mm[Hg] Dr. Kamilah Patel Work Phone: [facility] Work Phone: 08-05-2021 13:27-0400 Body height 160.[address] Kamilah Patel Work Phone: [facility] Work Phone: 08-05-2021 13:27-0400 Body temperature 96.9 [degF] Dr. Kamilah Patel Work Phone: [facility] Work Phone: 08-05-2021 13:27-0400 Diastolic blood pressure 63 mm[Hg] Dr. Kamilah Patel Work Phone: [facility] Work Phone: 08-05-2021 13:27-0400 Heart rate 84 /min Dr. Kamilah Patel Work Phone: [facility] Work Phone: 08-05-2021 13:27-0400 Respiratory rate 20 /min Dr. Kamilah Patel Work Phone: [facility] Work Phone: 08-05-2021 13:27-0400 SaO2% (BldA) [Mass fraction] 95 % Dr. Kamilah Patel Work Phone: [facility] Work Phone: 08-05-2021 13:27-0400 Systolic blood pressure 110 mm[Hg] Dr. Kamilah Patel Work Phone: [facility] Work Phone: 07-07-2021 10:02-0400 Body height 160.[address] Kamilah Patel Work Phone: [facility] Work Phone: 07-07-2021 10:02-0400 Body mass index (BMI) [Ratio] 33.6 kg/m2 Dr. Kamilah Patel Work Phone: [facility] Work Phone: 07-07-2021 10:02-0400 Body temperature 97.5 [degF] Dr. Kamilah Patel Work Phone: [facility] Work Phone: 07-07-2021 10:02-0400 Body weight 86.[address] Kamilah Patel Work Phone: [facility] Work Phone: 07-07-2021 10:02-0400 Diastolic blood pressure 82 mm[Hg] Dr. Kamilah Patel Work Phone: [facility] Work Phone: 07-07-2021 10:02-0400 Heart rate 77 /min Dr. Kamilah aPtel Work Phone: [facility] Work Phone: 07-07-2021 10:02-0400 Respiratory rate 19 /min Dr. Kamilah Patel Work Phone: [facility] Work Phone: 07-07-2021 10:02-0400 SaO2% (BldA) [Mass fraction] 92 % Dr. Kamilah Patel Work Phone: [facility] Work Phone: 07-07-2021 10:02-0400 Systolic blood pressure 128 mm[Hg] Dr. Kamilah Patel Work Phone: [facility] Work Phone: 05-20-2021 10:07-0500 Body temperature 97.2 [degF] Dr. Kamilah Patel Work Phone: [facility] Work Phone: 05-20-2021 10:07-0500 Diastolic blood pressure 70 mm[Hg] Dr. Kamilah Patel Work Phone: [facility] Work Phone: 05-20-2021 10:07-0500 Heart rate 91 /min Dr. Kamilah Patel Work Phone: [facility] Work Phone: 05-20-2021 10:07-0500 Respiratory rate 16 /min Dr. Kamilah Patel Work Phone: [facility] Work Phone: 05-20-2021 10:07-0500 SaO2% (BldA) [Mass fraction] 96 % Dr. Kamilah Patel Work Phone: [facility] Work Phone: 05-20-2021 10:07-0500 Systolic blood pressure 118 mm[Hg] Dr. Kamilah Patel Work Phone: [facility] Work Phone: 04-18-2021 05:33-0500 Body temperature 97.5 [degF] Dr. Kamilah Patel Work Phone: [facility] Work Phone: 04-18-2021 05:33-0500 Diastolic blood pressure 68 mm[Hg] Dr. Kamilah Patel Work Phone: [facility] Work Phone: 04-18-2021 05:33-0500 Heart rate 68 /min Dr. Kamilah Patel Work Phone: [facility] Work Phone: 04-18-2021 05:33-0500 Respiratory rate 18 /min Dr. Kamilah Patel Work Phone: [facility] Work Phone: 04-18-2021 05:33-0500 SaO2% (BldA) [Mass fraction] 97 % Dr. Kamilah Patel Work Phone: [facility] Work Phone: 04-18-2021 05:33-0500 Systolic blood pressure 114 mm[Hg] Dr. Kamilah Patel Work Phone: [facility] Work Phone: 04-06-2021 15:50-0500 Body temperature 97.1 [degF] Dr. Kamilah Patel Work Phone: [facility] Work Phone: 04-06-2021 15:50-0500 Diastolic blood pressure 76 mm[Hg] Dr. Kamilah Patel Work Phone: [facility] Work Phone: 04-06-2021 15:50-0500 Heart rate 69 /min Dr. Kamilah Patle Work Phone: [facility] Work Phone: 04-06-2021 15:50-0500 Respiratory rate 18 /min Dr. Kamilah Patel Work Phone: [facility] Work Phone: 04-06-2021 15:50-0500 SaO2% (BldA) [Mass fraction] 93 % Dr. Kamilah Patel Work Phone: [facility] Work Phone: 04-06-2021 15:50-0500 Systolic blood pressure 108 mm[Hg] Dr. Kamilah Patel Work Phone: [facility] Work Phone: 04-04-2021 21:01-0500 Body mass index (BMI) [Ratio] 35.2 kg/m2 Dr. Kamilah Patel Work Phone: [facility] Work Phone: 04-04-2021 21:01-0500 Body temperature 97.6 [degF] Dr. Kamilah Patel Work Phone: [facility] Work Phone: 04-04-2021 21:01-0500 Body weight 90.[address] Kamilah Patel Work Phone: [facility] Work Phone: 04-04-2021 21:01-0500 Diastolic blood pressure 73 mm[Hg] Dr. Kamilah Patel Work Phone: [facility] Work Phone: 04-04-2021 21:01-0500 Heart rate 100 /min Dr. Kamilah Patel Work Phone: [facility] Work Phone: 04-04-2021 21:01-0500 Respiratory rate 20 /min Dr. Kamilah Patel Work Phone: [facility] Work Phone: 04-04-2021 21:01-0500 SaO2% (BldA) [Mass fraction] 93 % Dr. Kamilah Patel Work Phone: [facility] Work Phone: 04-04-2021 21:01-0500 Systolic blood pressure 125 mm[Hg] Dr. Kamilah Patel Work Phone: [facility] Work Phone: 03-11-2021 12:47-0500 Body mass index (BMI) [Ratio] 35 kg/m2 Dr. Kamilah Patel Work Phone: [facility] Work Phone: 03-11-2021 12:47-0500 Body temperature 96.6 [degF] Dr. Kamilah Patel Work Phone: [facility] Work Phone: 03-11-2021 12:47-0500 Body weight 89.[address] Kamilah Patel Work Phone: [facility] Work Phone: 03-11-2021 12:47-0500 Diastolic blood pressure 66 mm[Hg] Dr. Kamilah Patel Work Phone: [facility] Work Phone: 03-11-2021 12:47-0500 Heart rate 75 /min Dr. Kamilah Patel Work Phone: [facility] Work Phone: 03-11-2021 12:47-0500 Respiratory rate 16 /min Dr. Kamilah Patel Work Phone: [facility] Work Phone: 03-11-2021 12:47-0500 SaO2% (BldA) [Mass fraction] 97 % Dr. Kamilah Patel Work Phone: [facility] Work Phone: 03-11-2021 12:47-0500 Systolic blood pressure 136 mm[Hg] Dr. Kamilah Patel Work Phone: [facility] Work Phone: 11-09-2016 15:43-0400 BMI (Body Mass Index) 27.87 kg/m2 Mariel Coronado LPN [facility] Work Phone: 11-09-2016 15:43-0400 Body Temperature 97.7 [degF] Mariel Coronado LPN [facility] Work Phone: 11-09-2016 15:43-0400 BP Diastolic 80 mm[Hg] Mariel Coronado LPN [facility] Work Phone: 11-09-2016 15:43-0400 BP Systolic 126 mm[Hg] Mariel Coronado LPN [facility] Work Phone: 11-09-2016 15:43-0400 Height 162.56 cm Mariel Coronado LPN [facility] Work Phone: 11-09-2016 15:43-0400 Pulse (Heart Rate) 79 /min Mariel Coronado LPN [facility] Work Phone: 11-09-2016 15:43-0400 Respiratory Rate 15 /min Mariel Coronado LPN [facility] Work Phone: 11-09-2016 15:43-0400 Weight 73.66 kg Mariel Coronado LPN [facility] Work Phone: 10-09-2016 12:46-0400 BMI (Body Mass Index) 27.94 kg/m2 Leilani Baron LPN [facility] Work Phone: 10-09-2016 12:46-0400 Body Temperature 97.7 [degF] Leilani Baron LPN [facility] Work Phone: 10-09-2016 12:46-0400 BP Diastolic 72 mm[Hg] Leilani Baron LPN [facility] Work Phone: 10-09-2016 12:46-0400 BP Systolic 108 mm[Hg] Leilani Baron LPN [facility] Work Phone: 10-09-2016 12:46-0400 Height 162.56 cm Leilani Baron LPN [facility] Now [...] BMI (Body Mass Index) 28.87 kg/m2 [facility] 09-20-2016 13:04-0400 Body Temperature 98.4 [degF] Brisa Yensho [employer] [facility] Work Phone: 09-20-2016 13:04-0400 BP Diastolic 73 mm[Hg] Brisa Yensho [employer] [facility] Work Phone: 09-20-2016 13:04-0400 BP Systolic 104 mm[Hg] Brisa Yensho [employer] [facility] Work Phone: 09-20-2016 13:04-0400 Height 160.02 cm Brisa Yensho [employer] [facility] Work Phone: 09-20-2016 13:04-0400 Pulse (Heart Rate) 70 /min Brisa Yensho [employer] [facility] Work Phone: 09-20-2016 13:04-0400 Pulse Oximetry 96 % Brisa Yensho [employer] [facility] Work Phone: 09-20-2016 13:04-0400 Respiratory Rate 18 /min Brisa Yensho [employer] [facility] Work Phone: 09-20-2016 13:04-0400 Weight 73.94 kg Brisa Yensho [employer] [facility] Work Phone: 02-03-2016 12:57-0400 BMI (Body Mass Index) 31.88 kg/m2 Kristengabriele Marie [employer] [facility] Work Phone: 02-03-2016 12:57-0400 Body Temperature 96.62 [degF] Kristen Marie [employer] [facility] Work Phone: 02-03-2016 12:57-0400 Body Temperature 96.6 [degF] Kristen Marie [employer] [facility] Work Phone: 02-03-2016 12:57-0400 BP Diastolic 73 mm[Hg] Kristen Marie [employer] [facility] Work Phone: 02-03-2016 12:57-0400 BP Systolic 140 mm[Hg] Kristen Marie [employer] [facility] Work Phone: 02-03-2016 12:57-0400 BSA (Body Surface Area) 1.85 m2 Kristen Marie [employer] [facility] Work Phone: 02-03-2016 12:57-0400 Height 160.02 cm Kristen Marie [employer] [facility] Work Phone: 02-03-2016 12:57-0400 Pulse (Heart Rate) 91 /min Kristen Marie [employer] [facility] Work Phone: 02-03-2016 12:57-0400 Pulse Oximetry 97 % Kristen Marie [employer] [facility] Work Phone: 02-03-2016 12:57-0400 Respiratory Rate 18 /min Kristen Marie [employer] [facility] Work Phone: 02-03-2016 12:57-0400 Weight 81.82 kg Kristen Marie [employer] [facility] Work Phone: 02-03-2016 12:57-0400 Weight 81.65 kg Kristen Marie [employer] [facility] Work Phone: 12-30-2015 14:51-0400 Heart rate 62 /min Kristen Marie [employer] [facility] Work Phone: Encounters Encounter Date Encounter Type Care Provider Facility Start: 02-20-2025 ambulatory Naomi Whyte Facility:[facility] Start: 02-04-2025 ambulatory [facility] Facility:[facility] Start: 02-04-2025 End: 02-05-2025 Evaluation and management of inpatient [facility] Facility:[facility] Start: 02-03-2025 End: 02-03-2025 [facility] Start: 02-02-2025 End: 02-02-2025 [facility] Start: 01-26-2025 End: 01-26-2025 [facility] Start: 01-20-2025 End: 01-20-2025 Patient encounter procedure Cathie QUINTEROS -[facility] Work Phone: Start: 01-20-2025 End: 01-20-[address] Naomi Whyte DO Work Phone: -[facility] Start: 01-19-2025 End: 01-19-2025 Patient encounter procedure Cathie QUINTEROS -Cat Scan [facility] Work Phone: Start: 01-19-2025 End: 01-19-2025 ambulatory Naomi Whyte Facility:[facility] Start: 01-16-2025 End: 01-16-2025 Patient encounter procedure Cathie QUINTEROS -[facility] Work Phone: Start: 01-16-2025 End: 01-16-[address] Naomi Whyte DO Work Phone: -[facility] Start: 12-24-2024 End: 12-24-2024 Emergency department patient visit Dr. Naomi Whyte DO Work Phone: -Emergency Department Work Phone: Start: 12-19-2024 ambulatory Naomi Whyte Facility:[facility] Start: 11-18-2024 End: 11-18-[address] Naomi Whyte DO Work Phone: -[facility] Start: 11-18-2024 End: 11-18-[address] Naomi Whyte DO -[facility] Work Phone: Start: 11-18-2024 End: 11-18-2024 ambulatory Naomi Whyte Facility:[facility] Start: 11-14-2024 End: 11-14-2024 Patient encounter procedure Cathie De Jesus NP-C -[facility] Work Phone: Start: 11-14-2024 End: 11-14-[address] Naomi Whyte DO Work Phone: -[facility] Start: 10-24-2024 ambulatory Mary Villasenor Facility:[facility] Start: 10-24-2024 Non-patient / Non-visit Dr. Mary bose MD -[facility] Start: 10-24-2024 End: 10-24-[address] Naomi Whyte DO Work Phone: -[facility] Start: 10-24-2024 End: 10-24-[address] Angel Patel MD -[facility] Work Phone: Start: 10-24-2024 End: 10-24-2024 [facility] Start: 10-17-2024 End: 10-17-2024 Patient encounter procedure Cathie De Jesus NP-C -[facility] Work Phone: Start: 10-17-2024 End: 10-17-[address] Naomi Whyte DO Work Phone: -[facility] Start: 10-17-2024 End: 10-17-2024 ambulatory Naomi Whyte Facility:[facility] Start: 09-10-2024 End: 09-10-2024 Patient encounter procedure Cathie De Jesus NP-C -[facility] Work Phone: Start: 09-10-2024 End: 09-10-[address] Naomi Whyte DO Work Phone: [facility] Work Phone: Start: 09-05-2024 ambulatory Cathie De Jesus [employer] Fac ility:[facility] Start: 08-08-2024 ambulatory Cathie De Jesus NP Fac ility:[facility] Start: 07-04-2024 End: 07-04-2024 Patient encounter procedure Cathie De Jesus EGGS INSPECTOR-C -Medical Out Work Phone: Start: 07-04-2024 End: 07-04-[address] Naomi Whyte DO Work Phone: [facility] Work Phone: Start: 06-03-2024 ambulatory Cathie De Jesus NP Fac ility:[facility] Start: 04-25-2024 End: 04-25-2024 Patient encounter procedure Cathie De Jesus EGGS INSPECTOR-C -Medical Out Work Phone: Start: 04-25-2024 End: 04-25-2024 ambulatory Cathie De Jesus EGGS INSPECTOR Facility:[facility] Start: 03-21-2024 End: 03-21-2024 Patient encounter procedure Cathie De Jesus EGGS INSPECTOR-C -Medical Out Work Phone: Start: 03-21-2024 End: 03-21-2024 ambulatory Cathie De Jesus EGGS INSPECTOR Facility:[facility] Start: 03-12-2024 End: 03-12-2024 Patient encounter procedure Cathie De Jesus EGGS INSPECTOR-C -[facility] Work Phone: Start: 03-12-2024 End: 03-12-2024 ambulatory Naomi Whyte [facility] Start: 02-29-2024 ambulatory Naomi Malbayron Facility:[facility] Start: 08-15-2023 End: 08-15-[address] Kamilah Patel Work Phone: [facility] Work Phone: Start: 08-15-2023 End: 08-15-[address] Kamilah Patel Work Phone: [facility]-Medical Out Work Phone: Start: 08-02-2023 End: 08-02-[address] Kamilah Patel Work Phone: [facility] Work Phone: Start: 06-15-2023 End: 06-15-[address] Kamilah Patel Work Phone: [facility] Work Phone: Start: 06-15-2023 End: 06-15-[address] Kamilah Patel Work Phone: [facility]-Medical Out Work Phone: Start: 05-18-2023 End: 05-18-[address] Kamilah Patel Work Phone: [facility] Work Phone: Start: 05-18-2023 End: 05-18-[address] Kamilah Patel Work Phone: [facility]-Medical Out Work Phone: Start: 05-16-2023 End: 05-16-[address] Kamilah Patel Work Phone: [facility] Work Phone: Start: 04-20-2023 End: 04-20-[address] Kamilah Patel Work Phone: [facility] Work Phone: Start: 04-20-2023 End: 04-20-[address] Kamilah Patel Work Phone: [facility] Work Phone: Start: 03-26-2023 End: 03-26-[address] Kamilah Patel Work Phone: [facility] Work Phone: Start: 03-26-2023 End: 03-26-[address] Kamilah Patel Work Phone: [facility]-Outpatient Breast Imaging Work Phone: Start: 02-23-2023 End: 02-23-[address] Kamilah Patel Work Phone: [facility] Work Phone: Start: 02-23-2023 End: 02-23-[address] Kamilah Patel Work Phone: [facility]-Medical Out Work Phone: Start: 2023 End: [address] Kamilah Patel Work Phone: [facility] Work Phone: Start: 01-26-2023 End: 01-26-2023 ambulatory [facility] Work Phone: Start: 01-26-2023 End: 01-26-2023 Patient encounter procedure [facility]-Medical Out Work Phone: Start: 12-29-2022 End: 12-29-2022 ambulatory [facility] Work Phone: Start: 12-29-2022 End: 12-29-2022 Patient encounter procedure [facility]-Medical Out Work Phone: Start: 12-21-2022 End: 12-21-2022 ambulatory [facility] Work Phone: Start: 12-21-2022 End: 12-21-2022 Patient encounter procedure [facility]-Cat [facility], [facility] Work Phone: Start: 12-15-2022 End: 12-15-2022 Emergency department patient visit [facility]-Emergency Department Work Phone: Start: 12-01-2022 End: 12-01-2022 ambulatory [facility] Work Phone: Start: 12-01-2022 End: 12-01-2022 Patient encounter procedure [facility]-Medical Out Work Phone: Start: 11-02-2022 End: 11-02-2022 Patient encounter procedure [facility]-Medical Out Work Phone: Start: 09-28-2022 End: 09-28-[address] Kamilah Patel Work Phone: [facility] Work Phone: Start: 09-28-2022 End: 09-28-[address] Kamilah Patel Work Phone: [facility]-Medical Out Start: 08-24-2022 End: 08-24-[address] Kamilah Patel Work Phone: [facility]-Medical Out Start: 08-01-2022 End: 08-01-[address] [facility] Start: 07-27-2022 End: 07-27-2022 ambulatory [facility] Work Phone: Start: 07-27-2022 End: 07-27-2022 Patient encounter procedure [facility]-Medical Out Start: 06-22-2022 End: 06-22-2022 ambulatory [facility] Work Phone: Start: 06-22-2022 End: 06-22-2022 Patient encounter procedure [facility]-Medical Out Start: 05-25-2022 End: 05-25-[address] Kamilah Patel Work Phone: [facility] Work Phone: Start: 05-25-2022 End: 05-25-[address] Kamilah Patel Work Phone: [facility]-Medical Out Start: 04-27-2022 End: 04-27-[address] Kamilah Patel Work Phone: [facility]-Medical Out Start: 03-21-2022 End: 03-21-[address] Kamilah Patel Work Phone: [facility] Work Phone: Start: 03-21-2022 End: 03-21-[address] Kamilah Patel Work Phone: [facility]-Medical Out Start: 02-09-2022 End: 02-09-[address] Kamilah Patel Work Phone: [facility] Work Phone: Start: 02-09-2022 End: 02-09-[address] Kamilah Patel Work Phone: [facility]-Sleep Lab Start: 02-08-2022 End: 02-08-[address] Kamilah Patel Work Phone: [facility] Work Phone: Start: 02-08-2022 End: 02-08-[address] Kamilah Patel Work Phone: [facility]-Laboratory, Specimen Start: 02-08-2022 End: 02-08-[address] Kamilah Patel Work Phone: [facility] Start: 01-30-2022 End: 01-30-[address] Kamilah Patel Work Phone: [facility]-Pulmonary Medicine [facility] Start: 01-24-2022 End: 01-24-[address] Kamilah Patel Work Phone: [facility] Work Phone: Start: 01-24-2022 End: 01-24-[address] [facility] Start: 12-27-2021 End: 12-27-[address] [facility] Start: 12-19-2021 End: 12-19-[address] Kamilah Patel Work Phone: [facility] Scan, [facility] Start: 12-15-2021 End: 12-15-[address] Kamilah Patel Work Phone: [facility] Work Phone: Start: 12-15-2021 End: 12-15-[address] Kam[facility] Pat[facility] [place] Start: 11-23-2021 End: 11-23-[address] [facility] Start: 11-10-2021 End: 11-10-[address] Kamil[facility] Pat[facility] Start: 11-09-2021 End: 11-09-[address] Kamilah Patel Work Phone: [facility] Start: 10-21-2021 End: 10-21-[address] [facility] Pat[facility] Start: 09-02-2021 End: 09-02-[address] [facility] Start: 08-05-2021 End: 08-05-[address] Kamilah Patel Work Phone: [facility]-Medical Out Start: 07-07-2021 End: 07-07-[address] Kamilah Patel Work Phone: [facility]-Pulmonary Medicine [facility] Start: 06-28-2021 End: 06-28-[address] Kamilah Patel Work Phone: [facility] Scan, [facility] Start: 05-20-2021 End: 05-20-[address] Kam[facility] Pat[facility] Start: 04-18-2021 End: 04-18-[address] Kamilah Patel Work Phone: [facility] Start: 04-06-2021 End: 04-06-[address] Kamilah Patel Work Phone: [facility] Start: 04-04-2021 End: 04-04-2021 Emergency department patient [facility]. Kamil[facility] Patel [facility] Start: 03-11-[address] Kamil[facility] Patel [facility] Procedures Date Procedure Procedure Detail Performing Clinician Start: 01-19-[address] Naomi gamboa DO Work Phone: Start: 12-24-2024 Radiologic exam chest [address] Naomi Whyte DO Work Phone: Start: 12-24-[address] Naomi Whyte DO Work Phone: Start: 11-18-2024 X-ray of chest, PA a [...] Start: 11-09-2016 End: 11-09-2016 Urinalysis Mariel Coronado RIVET HEATER Start: 11-09-2016 End: 11-09-2016 Urnls dip stick/tablet rgnt non-auto w/o micrscp Catracho Clifton PA Work Phone: Start: 09-20-2016 End: 09-20-2016 Dietary management education, guidance, and counseling Brisa Ball RIVET HEATER Start: 02-03-2016 End: 02-03-2016 Dietary management education, guidance, and counseling Kristen Marie RIVET HEATER Start: 02-03-2016 End: 03-13-2016 DMB Cathie Esquivel EGGS INSPECTOR Work Phone: Start: 02-03-2016 End: 03-13-2016 Follow Up Appt 6 months Cathie acuna LINEN CLERK Work Phone: Start: 02-03-2016 End: 02-04-2016 Referral to neurologist Cathie acuna LINEN CLERK Work Phone: Start: 01-03-2016 End: 03-13-2016 CSM Cathie Esquivel EGGS INSPECTOR Work Phone: Start: 01-03-2016 End: 03-13-2016 Follow Up Appt 1 month Cathie sawant LINEN CLERK Work Phone: Start: 12-30-2015 End: 02-08-2016 Arterial [...] (pt not on cpap) Cathie De Jesus LINEN CLERK Work Phone: Start: 12-02-2015 End: 12-30-2015 Complete sleep workup (PSG,CPAP as indicated) & Follow up Anthony Jalloh DO Work Phone: Start: 12-02-2015 End: 12-30-2015 Pulmonary stress test/simple Anthony rock DO Work Phone: Urine culture Dr. Kamilah patterson Work Phone: Urine culture Dr. Kamilah patterson Work Phone: Plan of Treatment Date Care Activity Detail Author Start: 02-03-2025 Positron emission tomography with computed tomography [facility] Start: 02-03-2025 Patient encounter procedure Registered Clinical -[facility] Start: 02-02-2025 Plain X-ray abdomen Abdomen Single View [facility] Start: 02-02-2025 XR Abdomen Single view [facility] Start: 02-02-2025 Patient encounter procedure Registered Clinical -Radiology Doni araya Work Phone: Start: 01-26-2025 End: 01-26-2025 Patient encounter procedure -Pulmonary Services/Neurology Work Phone: Start: 01-20-2025 End: 01-20-2025 Patient encounter procedure Drug-induced myopathy -[place] [facility] Work Phone: Start: 01-19-2025 CT of chest Low Dose CT Lung Screening [facility] Start: 12-24-2024 [facility] Start: 10-17-2024 [facility] Start: 12-15-2022 [facility] Start: 08-01-2022 Patient referral [facility] Work Phone: Start: 03-19-2017 End: 03-19-2017 Appointment Appointment [facility] Work Phone: Start: 11-09-2016 End: 11-09-2016 Appointment Appointment [facility] Work Phone: Start: 10-09-2016 End: 10-09-2016 Appointment Appointment [facility] Work Phone: Start: 09-20-2016 End: 09-20-2016 Appointment Appointment [facility] Work Phone: Start: 09-20-2016 End: 09-20-2016 [facility] Work Phone: Start: 09-20-2016 End: 09-20-2016 Follow Up Appt 6 months Follow Up Appt 6 months [facility] Work Phone: Start: 02-03-2016 End: 03-13-2016 DMB DMB [facility] Work Phone: Start: 02-03-2016 End: 03-13-2016 Follow Up Appt 6 months Follow Up Appt 6 months [facility] Work Phone: Start: 02-03-2016 End: 03-13-2016 Neurology Referral Neurology Referral [facility] Work Phone: Start: 01-25-2016 End: 01-25-2016 Vascular Surgery Vascular Surgery Janak Crawley MD, [address] [facility], [place] [address], [place], [address] [facility] Work Phone: Start: 01-03-2016 End: 03-13-2016 [facility] Work Phone: Start: 01-03-2016 End: 03-13-2016 Follow Up Appt 1 month Follow Up Appt 1 month [facility] Work Phone: Start: 12-30-2015 End: 12-30-2015 Arterial exam Arterial exam [facility] Work Phone: Start: 12-30-2015 End: 12-30-2015 Echocardiography Echocardiogram (complete) [facility] Phone: Start: 12-30-2015 End: 12-30-2015 Electrocardiogram, complete EKG (In office) [facility] Phone: Start: 12-30-2015 End: 12-30-2015 Follow Up Appt 6 weeks Follow Up Appt 6 weeks [facility] Phone: Start: 12-30-2015 End: 12-30-2015 Follow Up Appt Other Follow Up Appt Other [facility] Phone: Start: 12-30-2015 End: 12-30-2015 MMM MMM [facility] Phone: Start: 12-30-2015 End: 12-30-2015 Nuclear stress test -Lexiscan Nuclear stress test -Lexiscan [facility] Phone: Start: 12-30-2015 End: 03-13-2016 Titration with Follow up (pt not on cpap) Titration with Follow up (pt not on cpap) [facility] Phone: Start: 12-02-2015 End: 12-30-2015 Complete sleep workup (PSG,CPAP as indicated) & Follow up Complete sleep workup (PSG,CPAP as indicated) & Follow up [facility] Phone: Start: 12-02-2015 End: 12-02-2015 [facility] Phone: Start: 12-02-2015 End: 12-02-2015 Follow Up Appt 1 month Follow Up Appt 1 month [facility] Phone: Start: 12-02-2015 End: 12-02-2015 Pulmonary Function Test - complete Pulmonary Function Test - complete [facility] Phone: Start: 12-02-2015 End: 12-30-2015 Pulmonary stress test/simple Pulmonary stress testing; simple (eg, 6-minute walk) [facility] Phone: Blood chemistry [facility] Brain natriuretic pe ptide measurement [facility] CT Chest [facility] CT Chest [facility] CT Chest [facility] Patient Education [facility] Work Phone: Patient referral [facility] Work Phone: XR Chest PA and Lateral [facility] Immunizations Immunization Date Immunization Notes Care Provider Fa cility 11-22-2015 diphtheria, tetanus toxoids and acellular pertussis vaccine, unspecified formulation; Translations: [RDPWBAY-IHNOJU-NDBAJ PERTUSSIS] Kristen Marie LPN [facility] Work Phone: 11-22-2015 pneumococcal vaccine , unspecified formulation; Translations: [PNEUMOCOCCAL 13-FAVIAN CONJ VACC] Kristen Marie LPN [facility] Work Phone: 11-22-2015 varicella zoster imm une globulin; Translations: [ZOSTER VACCINE LIVE] Kristen Marie LPN [facility] Work Phone: Payers Date Payer Category Payer Self-pay [id number] 2024 Medicare [id number] 2024 Unknown [id number] Medicaid [id number] Unknown [id number] Unknown [id number] Unknown [id number] 2.16.8 40.1.547378.3.579.2.462 Unknown [id number] 2.16.8 40.1.809250.3.579.2.462 Unknown [id number] 2.16.8 40.1.802927.3.579.2.462 Unknown [id number] 2.16.8 40.1.310657.3.579.2.462 Unknown [id number] 2.16.8 40.1.004200.3.579.2.462 Unknown [id number] 2.16.8 40.1.562493.3.579.2.462 Unknown [id number] 2.16.8 40.1.284396.3.579.2.462 Unknown [id number] 2.16.8 40.1.489195.3.579.2.462 Unknown [id number] 2.16.8 40.1.800068.3.579.2.462 Unknown [id number] 2.16.8 40.1.015091.3.579.2.462 Unknown [id number] 2.16.8 40.1.306266.3.579.2.462 Unknown [id number] 2.16.8 40.1.924742.3.579.2.462 Unknown [id number] 2.16.8 40.1.728183.3.579.2.462 Unknown [id number] 2.16.8 40.1.453258.3.579.2.462 Unknown [id number] 2.16.8 40.1.045391.3.579.2.462 Unknown [id number] 2.16.8 40.1.289715.3.579.2.462 Unknown [id number] 2.16.8 40.1.003031.3.579.2.462 Unknown [id number] 2.16.8 40.1.028779.3.579.2.462 Unknown [id number] 2.16.8 40.1.754655.3.579.2.462 Unknown [id number] 2.16.8 40.1.104645.3.579.2.462 Unknown [id number] 2.16.8 40.1.356535.3.579.2.462 Unknown [id number] 2.16.8 40.1.467863.3.579.2.462 Unknown [id number] 2.16.8 40.1.548534.3.579.2.462 Unknown [id number] 2.16.8 40.1.367117.3.579.2.462 Unknown [id number] 2.16.8 40.1.335285.3.579.2.462 Unknown [id number] 2.16.8 40.1.914503.3.579.2.462 Unknown [id number] 2.16.8 40.1.111858.3.579.2.462 Unknown [id number] 2.16.8 40.1.291807.3.579.2.462 Unknown [id number] 2.16.8 40.1.887033.3.579.2.462 Social History Date Type Detail Facility Start: 07-07-2021 End: 08-02-2023 Tobacco smoking status NHIS Unknown if ever smoked [facility] Start: 1955 Sex Assigned At Female [facility] Start: 08-02-2023 End: 12-24-2024 Tobacco smoking status NHIS Ex-smoker (finding) [facility] Start: 07-05-2024 Sex Female (finding) [facility] Sex Female [facility] Mental Status Date Assessment Result Facility 01-16-2025 Cognitive function Awake [facility] Work Phone: 11-14-2024 Cognitive function Voice/Name [facility] Work Phone: 10-17-2024 Cognitive function Awake;Alert;A ppropriate;Follo ws Commands [facility] Work Phone: 09-10-2024 Cognitive function Voice/Name [facility] Work Phone: 07-04-2024 Cognitive function Awake;Alert;A ppropriate;Follo ws Commands [facility] Work Phone: 03-21-2024 Cognitive function Awake;Alert;A ppropriate;Follo [facility] Work Phone: 08-15-2023 Cognitive function Awake;Alert;A ppropriate;Follo [facility] Work Phone: 06-15-2023 Cognitive function Voice/Name [facility] Work Phone: 04-20-2023 Cognitive function Voice/Name [facility] Work Phone: 02-23-2023 Cognitive function Awake;Alert;A ppropriate;Follo [facility] Work Phone: 01-26-2023 Cognitive function Voice/Name [facility] Work Phone: 12-29-2022 Cognitive function Awake;Alert;A ppropriate;Follo [facility] Work Phone: 12-01-2022 Cognitive function Awake;Alert;A ppropriate;Follo [facility] Work Phone: 11-02-2022 Cognitive function Voice/Name [facility] Work Phone: 09-28-2022 Cognitive function Awake;Alert;A ppropriate;Follo [facility] Work Phone: 08-24-2022 Cognitive function Voice/Name [facility] Work Phone: 07-27-2022 Cognitive function Awake;Alert;A ppropriate;[facility]ollo [facility] Work Phone: 06-22-2022 Cognitive function Level Of Cons ciousness Awake;Alert;Appropriate;Follo ws [facility] Work Phone: 05-25-2022 Cognitive function Voice/Name [facility] Work Phone: 04-27-2022 Cognitive function Voice/Name [facility] Work Phone: 03-21-2022 Cognitive function Level Of Cons ciousness Awake;Alert;Appropriate;[facility] Work Phone: 01-24-2022 Cognitive function Voice/Name [facility] Work Phone: 12-27-2021 Cognitive function Level Of Cons ciousness Awake;Alert;Appropriate;[facility] Work Phone: 11-23-2021 Cognitive function Voice/Name [facility] Work Phone: 10-21-2021 Cognitive function Level Of Cons ciousness Awake;Alert;Appropriate;[facility] Work Phone: 09-02-2021 Cognitive function Awake;Alert;A ppropriate;[facility] Work Phone: 08-05-2021 Cognitive function Voice/Name [facility] Work Phone: 05-20-2021 Cognitive function Awake;Alert;A ppropriate;[facility] Work Phone: 03-11-2021 Cognitive function Voice/Name [facility] Work Phone: Clinical Notes 12-15-2022 to 02-05-2025 Note Date & Type Note Facility 02-05-2025 Note [facility] Medical Records Department [address] [place] [address] Discharge Summary 02/05/25 [facility] MR#: [id number] Acct: [id number] Name: TARSHA GONZALEZ Rep #: [id number] : 1955 70 From: Vaibhav Cardenas MD PCP: Dr. Naomi Whyte DO Status:ADM IN [id number] Prov[facility] Date of Admission: 02/04/25 Primary Care Physician: Dr. Naomi Whyte DO Reason For Visit: COPD EXACERBATION W/ HYPOXIA Diagnosis Discharge Diagnosis (1) Acute exacerbation of chronic obstructive pulmonary disease: Status: Chronic Code(s): J44.1 - Chronic obstructive pulmonary disease with (acute) exacerbation Plan Patient is a 70-year-old female admitted with progressive shortness of breath diagnosed with an exacerbation of asthma/COPD admitted to a monitored bed where patient is currently being managed 1. Acute hypoxia ??? Secondary to combination of asthma and COPD exacerbation. Moderate centrilobular emphysema. No airspace consolidation/edema or pleural effusion. Patient started on bronchodilator treatment, systemic steroid as well as antibiotic therapy. Patient placed on oxygen titrated to keep saturation greater than 90. 2. Obstructive sleep apnea ??? Consistent use of PAP therapy encouraged 3. Class II obesity with BMI of 35.6 ??? Complicating care weight loss advised 4. Anxiety disorder ??? Patient is on lorazepam twice daily as needed 5. Nonobstructive coronary artery disease ??? Patient is on clopidogrel 6. Dyslipidemia ??? Patient apparently did not tolerate statin therapy due to significant CAD 7. DVT prophylaxis ??? On enoxaparin Patient was expected to stay at least 2 midnights however given the rapid improvement in her clinical condition decision was made to discharge patient a day following her admission. Medications at Discharge Home Medications clopidogrel 75 mg tablet 75 mg PO DAILY 10/23/15 spacer #1 ea 07/29/19 Disability Placard #1 ea 01/04/21 estradiol 0.025 mg/24 hr weekly transdermal patch 1 patch transdermal QWEEK 04/20/23 mepolizumab 100 mg/mL subcutaneous auto-injector (Nucala) 100 mg subcut Q4W 01/28/24 albuterol sulfate 90 mcg/actuation aerosol inhaler 2 puff inhalation Q4H PRN shortness of breath or wheezing #8.5 grams 09/10/24 latanoprost 0.005 % eye drops 1 drp ophthalmic (eye) QHS 09/10/24 lorazepam 1 mg tablet 1 mg PO BID PRN anxiety 09/10/24 albuterol sulfate 2.5 mg/3 mL (0.083 %) solution for nebulization 2.5 mg (3 mL) inhalation Q4H PRN #120 vials 11/06/24 fluticasone fur. 100 mcg-umeclid 62.5 mcg-vilant 25 mcg inhalat.powder (Trelegy Ellipta) 1 inh inhalation DAILY #3 ea 01/20/25 azithromycin 500 mg tablet (Zithromax) 500 mg PO DAILY 3 days #3 tabs 02/05/25 cefdinir 300 mg capsule 300 mg PO BID #10 caps 02/05/25 fluvoxamine 100 mg tablet 100 mg PO DAILY depression 02/05/25 guaifenesin 600 mg tablet, extended release 12 hr (Mucinex) 1,200 mg (2 x 600 mg) PO BID 10 days #40 tabs 02/05/25 prednisone 20 mg tablet 20 mg PO BID 7 days #14 tabs 02/05/25 Hospital Course Summary of Care Provided Minutes Spent on Discharge: 32 Physical Exam Narrative GENERAL: cooperative HEENT: Atraumatic; normocephalic EYES; Anicteric, Normal Conjunctiva NECK; supple, normal thyroid, RESPIRATORY: Diminished to auscultation, no wheezes CARDIOVASCULAR: Regular S1 S2, GI: soft, normoactive bowel sounds, : No Renal angle tenderness; EXTREMITIES: No edema, no clubbing, MUSCULOSKELETAL: no muscle wasting NEURO: Awake; no lateralizing signs. SKIN: No Rash PSYCH; Flat affect Weight / BMI Weight Weight: 91.2 kg Body Mass Index (BMI) 35.6 ABG / Lab / Microbiology Data 02/05/25 05:10 02/05/25 05:10 Laboratory: Laboratory Results - last 24 hr 02/04/25 12:55: WBC 6.3, RBC 4.78, Hgb 14.0, Hct 41.2, MCV 86.2, MCH 29.3, MCHC 34.0, RDW Std Deviation 42.0, RDW Coeff of Grace 13.4, Plt Count 338, MPV 9.4, Immature Gran % (Auto) 0.800, Neut % (Auto) 63.8, Lymph % (Auto) 22.0, [place] % (Auto) 10.8 H, Eos % (Auto) 1.8, Baso % (Auto) 0.8, Absolute Neuts (auto) 4.0, Absolute Lymphs (auto) 1.38, Nucleated RBC % 0, Sodium 139, Potassium 3.6, Chloride 105, Carbon Dioxide 18.9 L, Anion Gap 16 H, BUN 5, Creatinine 0.81, Estim Creat Clear Calc 67.74, Est GFR (MDRD) Non-Af 78, BUN/Creatinine Ratio 6.6 L, Glucose 121 H, Lactic Acid 1.5, Calcium 9.6, Troponin T High Sens 8, NT pro BNP II 57 02/04/25 15:00: Troponin T Hi Sens 2 Hr 8 02/04/25 15:32: Procalcitonin 0.05 02/04/25 17:34: Troponin T Hi Sens 4Hr 14 02/05/25 05:10: WBC 3.4 L, RBC 4.55, Hgb 13.0, Hct 38.9, MCV 85.5, MCH 28.6, MCHC 33.4, RDW Std Deviation 42.1, RDW Coeff of Grace 13.4, Plt Count 362, MPV 9.5, Sodium 138, Potassium 3.9, Chloride 107, Carbon Dioxide 18.7 L, Anion Gap 13, BUN 8, Creatinine 0.74, Estim Creat Clear Calc 70.16, Est GFR (MDRD) Non-Af 87, BUN/Creatinine (more content not included)... [facility] 01-20-2025 Progress note [facility] 01-20-2025 Progress note Note Date/Time January 20, 2025 3:02pm [facility] [address] [place] [address] OFFICE VISIT Date of Service: 01/20/25 MR#: [id number] Acct: [id number] Name: TARSHA GONZALEZ Rep #: [id number] : 1955 Provider: NELI De Jesus Age/Sex: 69/F [place] [facility] [email or web address] Status: Signed Assessment and Plan Assessment and Plan (1) Asthma-COPD overlap syndrome: Status: Chronic Comment: on Nucala Plan: Stable, no signs of exacerbation of severe asthma/COPD overlap syndrome today. Continue Trelegy. I gave her a written specific instruction for a slow wean offof prednisone. She is agreeable with this plan. Continue Nucala. No additional testing at this time. Contact the office with any signs of new or worsening symptoms. Follow-up in 6 weeks. (2) Tobacco abuse, in remission: Status: Chronic Plan: LDCT was completed yesterday, unfortunately interpretation is not available for today. This will be reviewed at her 6-week follow-up. Continue to encourage ongoing smoking cessation. (3) PHILIP (obstructive sleep apnea): Status: Chronic Plan: Deteriorated. She is having some difficulty with her machine, which she believes is 9 years old. We will try to get the patient set up on a new device. I did explain to the patient that there are times when Medicare requires a new sleep study to approve a new device. She is agreeable that if it is required she will complete a sleep study. However, she notes that she would have difficulty sleeping and would require a sleep aid. Follow-up in 6 weeks to evaluate her response to the new machine and the compliance report. (4) Social anxiety disorder: Status: Chronic Plan: Complicates exam, plan, care and prognosis. This is likely the reason the patient does not always follow-up with testing that is ordered and requested. If you recall, I had requested a retitration study at the last office visit and the patient did not follow through with this. She seems agreeable to a retitration if Medicare requires that. (5) Obesity: Status: Chronic Qualifiers: Obesity type: drug-induced Obesity classification: adult class 2 (BMI 35 - 39.9) Serious obesity comorbidity presence: with serious comorbidity Bodymass index: BMI 36.0-36.9 Qualified Code(s): E66.812 - Obesity, class 2; E66.1 - Drug-induced obesity; Z68.36 - Body mass index [BMI] 36.0-36.9, adult Plan: Complicates exam, plan, care and prognosis. This is at least somewhat related to long-term use of prednisone. I am going to attempt to slowly wean the patient off the prednisone. She may be appropriate to be treated with Zepbound given her concomitant diagnosis of sleep apnea. I will leave this decision and management ultimately up to her primary care provider. 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 This may her ability to expectorate sputum. We may need to order a chest physiotherapy vest to aid her in pulmonary toileting. We will discuss this further at her follow-up visit. Orders: Orders PFT Complete - DLCO, Spirometry b/a bronchodilators, lung volumes 10/20/25 J44.9 - Chronic obstructive pulmonary disease, unspecified Medications: Refilled dmntrobdyyd-odoswudvx-gxqgcfxy 100-62.5-25 mcg (Trelegy Ellipta) 1 inh inhalation DAILY 3 ea 3RF Plan Details Additional Comments: This note was generated with Savorfull dictation software. It may contain incorrect words, spelling, and punctuation that were not noted in checking the note before signing. Portions of this documentation have been copied and pasted from previous office visit notes to provide a cohesive continuity of the history. The note has been reviewed, edited, and updated, as necessary. I have spent 44 minutes today reviewing labs, records and history. Time includes coordinating care, interpretation of tests. This also includes time I spent with the patient for exam, treatment plan and education as well as documenting clinical information. Follow Up: 6 Weeks HPI 4 m f u Chief Complaint: Routine follow-up HPI Comments Details: This patient presents to the office today for follow-up of her severe asthma/COPD overlap syndrome complicated by obstructive sleep apnea. She is ambulatory and on room air. She was seen in the emergency department on December 24, 2024 and diagnosed with COPD exacerbation. Chest x-ray showed chronic COPD changes. She declined bronchodilator treatments. She was treated with Solu-Medrol and discharged home on a prednisone burst. She has been compliant with use of Trelegy but has been using it as needed. She is on prednisone 10 mg. She does report rinsing her mouth out after each use. She denies any medication side effect such as sore throat or thrush. She is compliant with Nucala once monthly injections. She has not recently noticed DuoNebs. She is currently using albuterol approximately 10 times a week. If you recall, she quit smoking 10 years ago. She has shortness of breath on exertion. She reports a cough that is productive of clear-colored sputum. She denies any hemoptysis. She reports wheezing, but denies any chest tightness,chest pain or palpitations. She has not had any fever, chills or body aches. She reports excellent compliance with her PAP machine. She reports that it is 9 years old. She does not believe it is functioning properly. She states that sometimes it shows that her events per hour are for a minute jumps to 48. She also reports some difficulty with the house and connection. She states that she uses it every night and never sleeps without it. She does have some difficulty with dry mouth. Compliance report not available today. 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 DME Vendor: [employer] Accompanied by: Self Allergies codeine Allergy (Verified 01/20/25 14:11) Itching morphine Allergy (Verified 01/20/25 14:11) Itching doxycycline Adverse Reaction (Severe, Verified 01/20/25 14:11) severe headaches and muscle spasms to the chest Medications ?Medication ?Instructions ?Recorded ?Confirmed ?Type clopidogrel 75 mg tablet 75 mg PO DAILY 10/23/1501/07 History spacer #1 ea 07/29/19 01/20/25 Rx Disability Placard #1 ea 01/04/21 01/20/25 Rx estradiol 0.025 mg/24 hr weekly 1 patch transdermal QW TUOLUMNE 04/20/23 01/20/25 History transdermal patch mepolizumab 100 mg/mL subcutaneous 100 mg subcut Q4W 1 01/20/25 History auto-injector (Nucala) albuterol sulfate 90 mcg/actuation 2 puff inhalation Q 4H PRN 09/10/24 01/20/25 Rx aerosol inhaler shortness of breath or wheez ing #8.5 grams latanoprost 0.005 % eye drops 1 drp ophthalmic (eye) Q HS 09/10/24 01/20/25 History lorazepam 1 mg tablet 1 mg PO BID PRN anxiety 08/0101/20/25 History prednisone 10 mg tablet 10 mg PO QDAY #90 tabs 09/1001/20/25 Rx albuterol sulfate 2.5 mg/3 mL 2.5 mg (3 mL) inhalation Q4H PRN 11/06/24 01/20/25 Rx (0.083 %) solution for nebulization #120 vials fluticasone fur. 100 mcg-umeclid 1 inh inhalation RENNY Y #3 ea 01/20/25 01/20/25 Rx 62.5 mcg-vilant 25 mcg inhalat.powder (Trelegy Ellipta) Have you fallen in the past year?: No PFSH Medical History (Updated 01/20/25 @ 16:25 by Cathie De Jesus EGGS INSPECTOR, EGGS INSPECTOR-C) Glaucoma Macular degeneration of both eyes Social anxiety disorder Sense of smell altered Urinary tract infection with hematuria COVID-19 COPD (chronic obstructive pulmonary disease) OTRREZ (dyspnea on exertion) PHILIP (obstructive sleep apnea) Nicotine dependence in remission Obesity Atherosclerotic heart disease of platinum coronary artery without angina pectoris Cardiac murmur, unspecified Chest pain, unspecified Hyperlipidemia Peripheral vascular disease Central sleep apnea UTI (urinary tract infection) Urinary frequency Surgical History History of cardiac catheterization H/O oophorectomy History of tonsillectomy H/O: hysterectomy S/P surgical manipulation of ankle joint Family History Mother Cancer lung and cervical Father Emphysema Chronic Bronchitis, in 80s. Sister Diabetes CAD (coronary artery disease) Sister Heart disease Brother Respiratory abnormalities Colon cancer Social History Smoking Status: Former smoker pack-years: 80 Tobacco: How many years used: 40 how long ago did patient quit smoking: about 8 years ago second hand exposure: No alcohol intake: never substance use type: does not use what type of physical activity do you participate in: none Review of Systems Resp Respiratory: Yes as per HPI Exam Const Constitutional: Positive conversant, cooperative, in no acute respiratory distress, well developed, well nourished, good hygiene, frail appearing and obese Head Head: No normocephalic (Borden facies), Yes atraumatic and No cyanosis of lips/distal nose Eyes Eye: Positive clear conjunctiva; Negative nystagmus Ears Ear: Positive hearing normal and external ears normal Nose Nose: Yes external nose normal Mouth Mouth: Positive oral mucosae normal Neck Neck: Positive normal visual inspection and trachea midline Chest Wall Chest: Positive symmetric chest movement; Negative increased A/P diameter Resp lung sounds: Positive diminished lung sounds and prolonged expiratory time; Negative wheezes, rhonchi, rales or use of accessory muscles Cardio Cardiac: Positive regular rate, regular rhythm, S1 normal and S2 normal; Negative murmur, rub or gallop GI GI: Positive obese Genitourinary: Positive deferred Musc Musculoskeletal: Positive steady gait Skin Pulmonary Skin Exam: Positive intact; Negative lesion, rash, ulcers or dermal atrophy Extremities Extremities: No clubbing, No cyanosis and No edema Neuro Neurologic: Yes no focal neuro deficits, Yes conversant, Yes cooperative, Yes normal cognition, Yes normal coordination, Yes normal concentration and Yes understands questions Psych Appearance: Positive grossly normal, eye contact and well kempt Mental Status: Positive mental status grossly normal Mood: Positive congruent mood Affect: Positive normal affect Coding Level of Care Code Off vis,est,level 5 Diagnoses Asthma-COPD overlap syndrome J44.9 Tobacco abuse, in remission F17.201 PHILIP (obstructive sleep apnea) G47.33 Social anxiety disorder F40.10 Class 2 drug-induced obesity with serious comorbidity and body mass index (BMI) of 36.0 to 36.9 in adult E66.812; E66.1; Z68.36 Obesity type: drug-induced Obesity classification: adult class 2 (BMI 35 - 39.9) Serious obesity comorbidity presence: with serious comorbidity Body mass index: BMI 36.0-36.9 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 Naomi Whyte DO ~ [place] [employer] Work Phone: [phone] Discharge summary [facility] Medical Records Department [address] [place] [address] Emergency Department Summary 12/24/24 MR#: [id number] Acct: [id number] Name: TARSHA GONZALEZ Rep #:[id number] : 1955 69 From: Leobardo Harrington MD PCP: Dr. Naomi Whyte, DO Status:REG ER Location: ED HPI History of Present Illness Chief Complaint: Shortness of Breath Detail of Chief Complaint: Increase shortness of breath, cough, wheezing and tightness in chest with d Informant: patient Onset/Context/Timing Onset: Days Context: gradual Timing: Continuous and Waxes and wanes Quality: Positive for Dyspnea on exertion and Wheezing; Negative for Orthopnea or PND Current Severity: Mild Maximum Severity: Moderate Worsened by: Coughing Relieved by: Nothing Associated Symptoms cough; Negative for rhinorrhea, post nasal drip, ear pain, fever, sore throat, subjective, chills, sweats, clear sputum, white sputum, yellow sputum or green sputum Chest Pain: Positive for Intermittent and Pleuritic Narrative Narrative: Patient is a 69-year-old female. She has history of dyspnea, hyperlipidemia, glaucoma, macro degenerative disease of both eyes, COPD, bronchiectasis, obstructive sleep apnea and tobacco use. She smoked up to 1+ packs per day 5 years ago. She denies history of VTE. She has no risk factors for VTE. She denies leg pain, swelling discoloration. Patient has pleuritic pain with coughing. She denies hemoptysis. Her cough is essentially nonproductive. She is presently on prednisone 10 mg. She denies rhinorrhea, congestion postnasal drainage. Denies ear pain or ear discharge. She denies abdominal pain, nausea, vomiting or diarrhea. She denies urologic symptoms. She denies orthopnea. She denies PND. PE Risk Factors: Negative for Cancer, OCP + Smoking + > 35, Prior DVT or PE, Recent immobilization, Recent surgery (Eye surgery several months ago.) or Recent travel (Drove to [place] greater than month ago) Prior similar symptoms: Yes Recent Illness/Hospitalization: No PFSH PFSH Medical History Glaucoma Macular degeneration of both eyes Social anxiety disorder Sense of smell altered Urinary tract infection with hematuria COVID-19 COPD (chronic obstructive pulmonary disease) TORREZ (dyspnea on exertion) PHILIP (obstructive sleep apnea) Nicotine dependence in remission Obesity Atherosclerotic heart disease of platinum coronary artery without angina pectoris Cardiac murmur, unspecified Chest pain, unspecified Hyperlipidemia Peripheral vascular disease Central sleep apnea UTI (urinary tract infection) Urinary frequency Home Medications ?Medication ?Instructions ?Recorded ?Last Taken ?Type clopidogrel 75 mg tablet 75 mg PO DAILY 10/23/15 02/0 04/27 History spacer #1 ea 07/29/19 Unknown Rx Disability Placard #1 ea 01/04/21 Unknown Rx estradiol 0.025 mg/24 hr weekly 1 patch transdermal QW TUOLUMNE 04/20/23 Unknown History transdermal patch fluticasone fur. 100 mcg-umeclid 1 inh inhalation RENNY Y 04/20/23 Unknown History 62.5 mcg-vilant 25 mcg inhalat.powder (Trelegy Ellipta) mepolizumab 100 mg/mL subcutaneous 100 mg subcut Q4W 1 Unknown History auto-injector (Nucala) albuterol sulfate 90 mcg/actuation 2 puff inhalation Q 4H PRN 09/10/24 Unknown Rx aerosol inhaler shortness of breath or wheez ing #8.5 grams latanoprost 0.005 % eye drops 1 drp ophthalmic (eye) Q HS 09/10/24 Unknown History lorazepam 1 mg tablet 1 mg PO BID PRN anxiety 08/01 Unknown History prednisone 10 mg tablet 10 mg PO QDAY #90 tabs 09/10 Unknown Rx albuterol sulfate 2.5 mg/3 mL 2.5 mg (3 mL) inhalation Q4H PRN 11/06/24 Unknown Rx (0.083 %) solution for nebulization #120 vials prednisone 20 mg tablet 60 mg (3 x 20 mg) PO DAILY # 15 12/24/24 Unknown Rx TABLETS Allergy/AdvReac Type Severity Reaction Status Date / Time codeine Allergy Itching Verified 12/24/24 21:05 morphine Allergy Itching Verified 12/24/24 21:05 doxycycline AdvReac Severe severe Verified 12/24/24 21:05 headaches and muscle spasms to the chest Family History Mother Cancer lung and cervical Father Emphysema Chronic Bronchitis, in 80s. Sister Diabetes CAD (coronary artery disease) Sister Heart disease Brother Respiratory abnormalities Colon cancer Surgical History History of cardiac catheterization H/O oophorectomy History of tonsillectomy H/O: hysterectomy S/P surgical manipulation of ankle joint Social History Smoking Status: Former smoker pack-years: 80 Tobacco: How many years used: 40 how long ago did patient quit smoking: about 8 years ago second hand exposure: No alcohol intake: never substance use type: does not use what type of physical activity do you participate in: none ROS ROS ED Constitutional Constitutional ED: Denies chills, fever(s) or sweats Eyes Eyes: Denies blurry vision or change in vision ENT ENT ED: Denies ear pain, rhinorrhea or sore throat Cardiovascular Cardiovascular: Reports chest pain; Denies orthopnea, palpitations, paroxysmal nocturnal dyspnea orracing heartbeat Respiratory/Chest Respiratory/Chest: Reports cough, dyspnea and dyspnea on exertion; Denies orthopnea, paroxysmal nocturnal dyspnea or sputum Gastrointestinal Gastrointestinal: Denies abdominal pain, diarrhea, nausea or vomiting Genitourinary Genitourinary ED: Denies dysuria, hematuria or urinary frequency Musculoskeletal Musculoskeletal: Denies arthralgias or myalgias Integumentary Denies Abrasions or rash Neurologic Neurologic: Denies headache(s) or paresthesias Psychiatric Psychiatric: Denies anxiety or depression Endocrine Endocrinology: Denies cold intolerance or heat intolerance Hematologic/Lymphatic Hematologic/Lymphatic: Denies easy bleeding or easy bruising Allergic/Immunologic Allergic/Immunologic ED: Denies mouth swelling or tongue swelling EXAM Physical Exam Const Vital Signs: 12/24/24 21:05 12/24/24 21:18 12/24/24 22:15 Temperature 98.8 F Temperature Source Oral Pulse Rate 92 100 Respiratory Rate 18 16 Respiratory Effort Labored Respiratory Depth Shallow Respiratory Pattern Blood Pressure 149/78 H 143/70 H Blood Pressure Mean 101 94 Pulse Ox 98 95 Oxygen Delivery Method Room Air 12/24/24 23:01 12/24/24 23:17 Temperature Temperature Source Pulse Rate 82 81 Respiratory Rate 16 12 Respiratory Effort Respiratory Depth Respiratory Pattern Normal Blood Pressure 126/72 H Blood Pressure Mean 90 Pulse Ox 95 Oxygen Delivery Method Positive well nourished and well developed Constitutional Narrative: Patient's vital signs are remarkable slightly low blood pressure. She is not hypoxic. BMI is 37.9. General Appearance ED: well developed; Negative for pallor HEENT HEENT Narrative: Head is atraumatic no cephalic. Ears normal. Nares patent. Posterior pharynx is normal. Eyes PERRL and EOMs intact bilaterally General Eye ED: Negative for pale conjunctiva or scleral icterus Neck no lymphadenopathy, supple and no meningeal signs Resp normal respiratory effort and No clear to auscultation bilaterally Auscultation: wheezes expiratory wheezes and scattered wheezes (Bilaterally) Cardio regular rate, regular rhythm, S1 normal heart sound and no murmurs GI non-tender, non-distended and no masses Extremity normal to inspection Extremity Narrative: There is no asymmetry, swelling, discoloration, leg vein distention, palpable cords or tenderness along the distribution of the deep venous system. Neuro oriented x3 and CN's II-XII intact bilaterally Sensorium / Orientation: alert Psych mental status grossly normal Skin no wounds and skin turgor normal General Skin Exam: Negative for jaundice or pallor MDM MDM MDM Narrative Medical decision making narrative: Differential diagnosis is exacerbation COPD, pneumonia, pneumothorax, history ofphysical not consistent with congestive heart failure, pulmonary embolus or aortic dissection. Workup included chest x-ray appropriate blood work, 60 mg ofprednisone and DuoNeb followed by albuterol. I was informed by respiratory therapist she declined the 2 albuterol treatments. Lab Data Attestation: I reviewed the patient's lab results. Lab results narrative: CBC is normal. Basic metabolic panel reveals slight decrease in CO2 at 17.4. Anion gap is normal. Glucose is normal. Labs: Laboratory Results - last 24 hr 12/24/24 21:20 WBC 6.6 RBC 4.48 Hgb 13.1 Hct 39.3 MCV 87.7 MCH 29.2 MCHC 33.3 RDW Std Deviation 42.1 RDW Coeff of Grace 13.2 Plt Count 342 MPV 9.1 Immature Gran % (Auto) 0.600 Neut % (Auto) 55.4 Lymph % (Auto) 32.5 [place] % (Auto) 9.8 Eos % (Auto) 0.8 Baso % (Auto) 0.9 Absolute Neuts (auto) 3.7 Absolute Lymphs (auto) 2.15 Nucleated RBC % 0 Sodium 140 Potassium 3.9 Chloride 108 Carbon Dioxide 17.4 L Anion Gap 14 BUN 5 Creatinine 0.84 Estim Creat Clear Calc 70.10 Est GFR (MDRD) Non-Af 75 BUN/Creatinine Ratio 5.7 L Glucose 96 Calcium 9.2 Radiography Chest X-Ray - ED: 2 View and Read by ED Physician (Chronic interstitial changes consistent with COPD and hyperaeration. There is no infiltrate or effusion noted. There is no evidence of pneumothorax.) Diagnostic Testing: Clinical Impression(s) from Imaging Studies Chest X-Ray 12/24/24 22:46 IMPRESSION: Interstitial emphysematous lung changes. No focal consolidation. 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 She is moving significantly more air. There isno wheezing. She states she feels much better. Plan is burst of prednisone. Discharge Plan Triage Chief Complaint: Shortness of Breath ED Provider: Leobardo Harrington Dx/Rx/DC Orders Clinical Impression: Acute exacerbation of chronic obstructive pulmonary disease, Acute bronchospasm, Elevated blood-pressure reading without diagnosis of hypertension,PHILIP (obstructive sleep apnea), Atherosclerosis of coronary artery, Hyperlipidemia Instructions: ED COPD Flare Prescriptions: New prednisone 20 mg tablet 60 mg PO DAILY Qty: 15 0RF No Action (DME) spacer See Rx Instructions .Route .MEDSUPPLY Qty: 1 0RF Rx Instructions: As directed (DME) Disability Placard See Rx Instructions .Route .MEDSUPPLY Qty: 1 0RF Rx Instructions: expires 12/10/2025 estradiol 0.025 mg/24 hr patch weekly 1 patch transdermal QWEEK Trelegy Ellipta 100-62.5-25 mcg blister with device 1 inh inhalation DAILY Nucala 100 mg/mL auto-injector 100 mg subcut Q4W lorazepam 1 mg tablet 1 mg PO BID PRN (Reason: anxiety) latanoprost 0.005 % drops 1 drp ophthalmic (eye) QHS albuterol sulfate 90 mcg/actuation HFA aerosol inhaler 2 puff inhalation Q4H PRN (Reason: shortness of breath or wheezing) Qty: 8.5 6RF Rx Instructions: administer with spacer prednisone 10 mg tablet 10 mg PO QDAY Qty: 90 3RF clopidogrel 75 MG tablet 75 mg PO DAILY albuterol sulfate 2.5 mg /3 mL (0.083 %) solution for nebulization 2.5 mg INHALATION Q4H PRN Qty: 120 6RF Rx Instructions: Use q4 hours and PRN for wheezing Primary Care Provider: Naomi Whyte Referrals: Naomi Whyte DO [Primary Care Provider, Family Practice] Activity Restrictions/Additional Instructions: 1. Take the prednisone as prescribed for 5 days then return to your maintenancedose of 10 mg. 2. Since you have a nebulize at home you can do a treatment and repeat every 15minutes for 2 or 3 treatments. If you are still having trouble breathing that would be a reason to come in to the emergency department. 3. You were not prescribed antibiotics and your white count is normal you do not have a fever and do not have a change in your sputum. Print Language: Citizen [place] Disposition Disposition: Home, Self Care What to do if you have Problems For any increased pain, shortness of breath, bleeding, nausea or vomiting, chestpain, or any unexpected problems, contact your Primary Care Provider. Call [facility] ([phone]) or report tothe closest Emergency Room. Call 911 if necessary. 12/24/24 3531 Cosigner Signature (if applicable): CC: Dr. Naomi Whyte DO ~ Signed [facility]09-17-2025 Radiology Diagnostic study note [facility] Imaging Services [address] [place], [place] [address] Chest PA and Lateral MR#: [id number] Acct: [id number] Name: TARSHA GONZALEZ Rep #: [id number] : 1955 F 69 From: Khoa Santos MD PCP: Dr. Naomi Whyte DO Status: REG ER Study:Chest PA and Lateral Date of Exam: 12/24/24 Exam# [id number] Ordering Dr: Paige Harrington MD PROCEDURE: CHEST PA AND LATERAL 12/24/2024 REASON FOR EXAM: COUGH, SCATTERED WHEEZING, HISTORY OF COPD TECHNIQUE: Procedure Code: RADCXR Modality: DX Procedure: CHEST PA AND LATERAL COMPARISON: 11/18/2024 FINDINGS: Lungs/Pleura: No focal airspace consolidation. Diffuse bilateral interstitial reticular emphysematous lung changes. No pneumothorax or sizable pleural effusion. Heart/Mediastinum: Within normal limits. Aortic atherosclerotic calcification. Bones/Soft tissues: Mild multilevel degenerative changes of the spine. RAD/Chest PA and Lateral IMPRESSION: Interstitial emphysematous lung changes. No focal consolidation. Reading Location: [facility] CC: Dr. Naomi Whyte DO; Dr. Leobardo Harrington MD ~ Chopped Strand Operator: Signed [facility]09-17-2025 Discharge summary Author Leobardo Harrington [facility] Note Date/Time December 24, 2024 11:35pm [facility] Medical Records Department [address] [place] [address] Emergency Department Summary 12/24/24 MR#: [id number] Acct: [id number] Name: TARSHA GONZALEZ Rep #:[id number] : 1955 69 From: Leobardo Harrington MD PCP: Dr. Naomi Whyte DO Status:REG ER Location: ED HPI History of Present Illness Chief Complaint: Shortness of Breath Detail of Chief Complaint: Increase shortness of breath, cough, wheezing and tightness in chest with d Informant: patient Onset/Context/Timing Onset: Days Context: gradual Timing: Continuous and Waxes and wanes Quality: Positive for Dyspnea on exertion and Wheezing; Negative for Orthopnea or PND Current Severity: Mild Maximum Severity: Moderate Worsened by: Coughing Relieved by: Nothing Associated Symptoms cough; Negative for rhinorrhea, post nasal drip, ear pain, fever, sore throat, subjective, chills, sweats, clear sputum, white sputum, yellow sputum or green sputum Chest Pain: Positive for Intermittent and Pleuritic Narrative Narrative: Patient is a 69-year-old female. She has history of dyspnea, hyperlipidemia, glaucoma, macro degenerative disease of both eyes, COPD, bronchiectasis, obstructive sleep apnea and tobacco use. She smoked up to 1+ packs per day 5 years ago. She denies history of VTE. She has no risk factors for VTE. She denies leg pain, swelling discoloration. Patient has pleuritic pain with coughing. She denies hemoptysis. Her cough is essentially nonproductive. She is presently on prednisone 10 mg. She denies rhinorrhea, congestion postnasal drainage. Denies ear pain or ear discharge. She denies abdominal pain, nausea, vomiting or diarrhea. She denies urologic symptoms. She denies orthopnea. She denies PND. PE Risk Factors: Negative for Cancer, OCP + Smoking + > 35, Prior DVT or PE, Recent immobilization, Recent surgery (Eye surgery several months ago.) or Recent travel (Drove to [place] greater than month ago) Prior similar symptoms: Yes Recent Illness/Hospitalization: No PFSH PFSH Medical History Glaucoma Macular degeneration of both eyes Social anxiety disorder Sense of smell altered Urinary tract infection with hematuria COVID-19 COPD (chronic obstructive pulmonary disease) TORREZ (dyspnea on exertion) PHILIP (obstructive sleep apnea) Nicotine dependence in remission Obesity Atherosclerotic heart disease of platinum coronary artery without angina pectoris Cardiac murmur, unspecified Chest pain, unspecified Hyperlipidemia Peripheral vascular disease Central sleep apnea UTI (urinary tract infection) Urinary frequency Home Medications ?Medication ?Instructions ?Recorded ?Last Taken ?Type clopidogrel 75 mg tablet 75 mg PO DAILY 10/23/15 02/0 04/27 History spacer #1 ea 07/29/19 Unknown Rx Disability Placard #1 ea 01/04/21 Unknown Rx estradiol 0.025 mg/24 hr weekly 1 patch transdermal QW TUOLUMNE 04/20/23 Unknown History transdermal patch fluticasone fur. 100 mcg-umeclid 1 inh inhalation RENNY Y 04/20/23 Unknown History 62.5 mcg-vilant 25 mcg inhalat.powder (Trelegy Ellipta) mepolizumab 100 mg/mL subcutaneous 100 mg subcut Q4W 1 Unknown History auto-injector (Nucala) albuterol sulfate 90 mcg/actuation 2 puff inhalation Q 4H PRN 09/10/24 Unknown Rx aerosol inhaler shortness of breath or wheez ing #8.5 grams latanoprost 0.005 % eye drops 1 drp ophthalmic (eye) Q HS 09/10/24 Unknown History lorazepam 1 mg tablet 1 mg PO BID PRN anxiety 08/01 Unknown History prednisone 10 mg tablet 10 mg PO QDAY #90 tabs 09/10 Unknown Rx albuterol sulfate 2.5 mg/3 mL 2.5 mg (3 mL) inhalation Q4H PRN 11/06/24 Unknown Rx (0.083 %) solution for nebulization #120 vials prednisone 20 mg tablet 60 mg (3 x 20 mg) PO DAILY # 15 12/24/24 Unknown Rx TABLETS Allergy/AdvReac Type Severity Reaction Status Date / Time codeine Allergy Itching Verified 12/24/24 21:05 morphine Allergy Itching Verified 12/24/24 21:05 doxycycline AdvReac Severe severe Verified 12/24/24 21:05 headaches and muscle spasms to the chest Family History Mother Cancer lung and cervical Father Emphysema Chronic Bronchitis, in 80s. Sister Diabetes CAD (coronary artery disease) Sister Heart disease Brother Respiratory abnormalities Colon cancer Surgical History History of cardiac catheterization H/O oophorectomy History of tonsillectomy H/O: hysterectomy S/P surgical manipulation of ankle joint Social History Smoking Status: Former smoker pack-years: 80 Tobacco: How many years used: 40 how long ago did patient quit smoking: about 8 years ago second hand exposure: No alcohol intake: never substance use type: does not use what type of physical activity do you participate in: none ROS ROS ED Constitutional Constitutional ED: Denies chills, fever(s) or sweats Eyes Eyes: Denies blurry vision or change in vision ENT ENT ED: Denies ear pain, rhinorrhea or sore throat Cardiovascular Cardiovascular: Reports chest pain; Denies orthopnea, palpitations, paroxysmal nocturnal dyspnea or racing heartbeat Respiratory/Chest Respiratory/Chest: Reports cough, dyspnea and dyspnea on exertion; Denies orthopnea, paroxysmal nocturnal dyspnea or sputum Gastrointestinal Gastrointestinal: Denies abdominal pain, diarrhea, nausea or vomiting Genitourinary Genitourinary ED: Denies dysuria, hematuria or urinary frequency Musculoskeletal Musculoskeletal: Denies arthralgias or myalgias Integumentary Denies Abrasions or rash Neurologic Neurologic: Denies headache(s) or paresthesias Psychiatric Psychiatric: Denies anxiety or depression Endocrine Endocrinology: Denies cold intolerance or heat intolerance Hematologic/Lymphatic Hematologic/Lymphatic: Denies easy bleeding or easy bruising Allergic/Immunologic Allergic/Immunologic ED: Denies mouth swelling or tongue swelling EXAM Physical Exam Const Vital Signs: 12/24/24 21:05 12/24/24 21:18 12/24/24 22:15 Temperature 98.8 F Temperature Source Oral Pulse Rate 92 100 Respiratory Rate 18 16 Respiratory Effort Labored Respiratory Depth Shallow Respiratory Pattern Blood Pressure 149/78 H 143/70 H Blood Pressure Mean 101 94 Pulse Ox 98 95 Oxygen Delivery Method Room Air 12/24/24 23:01 12/24/24 23:17 Temperature Temperature Source Pulse Rate 82 81 Respiratory Rate 16 12 Respiratory Effort Respiratory Depth Respiratory Pattern Normal Blood Pressure 126/72 H Blood Pressure Mean 90 Pulse Ox 95 Oxygen Delivery Method Positive well nourished and well developed Constitutional Narrative: Patient's vital signs are remarkable slightly low blood pressure. She is not hypoxic. BMI is 37.9. General Appearance ED: well developed; Negative for pallor HEENT HEENT Narrative: Head is atraumatic no cephalic. Ears normal. Nares patent. Posterior pharynx is normal. Eyes PERRL and EOMs intact bilaterally General Eye ED: Negative for pale conjunctiva or scleral icterus Neck no lymphadenopathy, supple and no meningeal signs Resp normal respiratory effort and No clear to auscultation bilaterally Auscultation: wheezes expiratory wheezes and scattered wheezes (Bilaterally) Cardio regular rate, regular rhythm, S1 normal heart sound and no murmurs GI non-tender, non-distended and no masses Extremity normal to inspection Extremity Narrative: There is no asymmetry, swelling, discoloration, leg vein distention, palpable cords or tenderness along the distribution of the deep venous system. Neuro oriented x3 and CN's II-XII intact bilaterally Sensorium / Orientation: alert Psych mental status grossly normal Skin no wounds and skin turgor normal General Skin Exam: Negative for jaundice or pallor MDM MDM MDM Narrative Medical decision making narrative: Differential diagnosis is exacerbation COPD, pneumonia, pneumothorax, history ofphysical not consistent with congestive heart failure, pulmonary embolus or aortic dissection. Workup included chest x-ray appropriate blood work, 60 mg ofprednisone and DuoNeb followed by albuterol. I was informed by respiratory therapist she declined the 2 albuterol treatments. Lab Data Attestation: I reviewed the patient's lab results. Lab results narrative: CBC is normal. Basic metabolic panel reveals slight decrease in CO2 at 17.4. Anion gap is normal. Glucose is normal. Labs: Laboratory Results - last 24 hr 12/24/24 21:20 WBC 6.6 RBC 4.48 Hgb 13.1 Hct 39.3 MCV 87.7 MCH 29.2 MCHC 33.3 RDW Std Deviation 42.1 RDW Coeff of Grace 13.2 Plt Count 342 MPV 9.1 Immature Gran % (Auto) 0.600 Neut % (Auto) 55.4 Lymph % (Auto) 32.5 [place] % (Auto) 9.8 Eos % (Auto) 0.8 Baso % (Auto) 0.9 Absolute Neuts (auto) 3.7 Absolute Lymphs (auto) 2.15 Nucleated RBC % 0 Sodium 140 Potassium 3.9 Chloride 108 Carbon Dioxide 17.4 L Anion Gap 14 BUN 5 Creatinine 0.84 Estim Creat Clear Calc 70.10 Est GFR (MDRD) Non-Af 75 BUN/Creatinine Ratio 5.7 L Glucose 96 Calcium 9.2 Radiography Chest X-Ray - ED: 2 View and Read by ED Physician (Chronic interstitial changes consistent with COPD and hyperaeration. There is no infiltrate or effusion noted. There is no evidence of pneumothorax.) Diagnostic Testing: Clinical Impression(s) from Imaging Studies Chest X-Ray 12/24/24 22:46 IMPRESSION: Interstitial emphysematous lung changes. No focal consolidation. 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 She is moving significantly more air. There isno wheezing. She states she feels much better. Plan is burst of prednisone. Discharge Plan Triage Chief Complaint: Shortness of Breath ED Provider: Leobardo Harrington Dx/Rx/DC Orders Clinical Impression: Acute exacerbation of chronic obstructive pulmonary disease, Acute bronchospasm, Elevated blood-pressure reading without diagnosis of hypertension,PHILIP (obstructive sleep apnea), Atherosclerosis of coronary artery, Hyperlipidemia Instructions: ED COPD Flare Prescriptions: New prednisone 20 mg tablet 60 mg PO DAILY Qty: 15 0RF No Action (DME) spacer See Rx Instructions .Route .MEDSUPPLY Qty: 1 0RF Rx Instructions: As directed (DME) Disability Placard See Rx Instructions .Route .MEDSUPPLY Qty: 1 0RF Rx Instructions: expires 12/10/2025 estradiol 0.025 mg/24 hr patch weekly 1 patch transdermal QWEEK Trelegy Ellipta 100-62.5-25 mcg blister with device 1 inh inhalation DAILY Nucala 100 mg/mL auto-injector 100 mg subcut Q4W lorazepam 1 mg tablet 1 mg PO BID PRN (Reason: anxiety) latanoprost 0.005 % drops 1 drp ophthalmic (eye) QHS albuterol sulfate 90 mcg/actuation HFA aerosol inhaler 2 puff inhalation Q4H PRN (Reason: shortness of breath or wheezing) Qty: 8.5 6RF Rx Instructions: administer with spacer prednisone 10 mg tablet 10 mg PO QDAY Qty: 90 3RF clopidogrel 75 MG tablet 75 mg PO DAILY albuterol sulfate 2.5 mg /3 mL (0.083 %) solution for nebulization 2.5 mg INHALATION Q4H PRN Qty: 120 6RF Rx Instructions: Use q4 hours and PRN for wheezing Primary Care Provider: Naomi Whyte Referrals: Naomi Whyte DO [Primary Care Provider, Family Practice] Activity Restrictions/Additional Instructions: 1. Take the prednisone as prescribed for 5 days then return to your maintenancedose of 10 mg. 2. Since you have a nebulize at home you can do a treatment and repeat every 15minutes for 2 or 3 treatments. If you are still having trouble breathing that would be a reason to come in to the emergency department. 3. You were not prescribed antibiotics and your white count is normal you do not have a fever and do not have a change in your sputum. Print Language: Citizen [place] Disposition Disposition: Home, Self Care What to do if you have Problems For any increased pain, shortness of breath, bleeding, nausea or vomiting, chestpain, or any unexpected problems, contact your Primary Care Provider. Call [facility] ([phone]) or report to the closest Emergency Room. Call 911 if necessary. 12/24/242334 <Electronically signed by Leobardo Harrington MD> Cosigner Signature (if applicable): CC: Dr. Naomi Whyte DO ~ Signed [facility] Work Phone: 1(808) 897-236108-12-2025 Radiology Diagnostic study note [facility] Imaging Services [address] [place] [address] Chest PA and Lateral MR#: [id number] Acct: [id number] Name: TARSHA GONZALEZ DOMINGA Rep #: [id number] : 1955 F 69 From: Albina Bwoman MD PCP: Dr. Naomi Whyte DO Status: REG CLI Study:Chest PA and Lateral Date of Exam: 11/18/24 Exam# [id number] Ordering Dr: Ai Whyte sa, DO PROCEDURE: [...] IMPRESSION: No acute cardiopulmonary abnormalities. Reading Location: [id number] CC: Dr. Naomi Whyte DO ~ Chopped Strand Operator: Signed [facility]06-04-2025 Evaluation note* Diagnosis Onset Date Resolution Status Admit Date Asthma-COPD overlap syndrome chronic September 10, 2024 1:33pm Tobacco abuse, in remission chronic September 10, 2024 1:33pm [facility] Work Phone: [phone] Evaluation note* Diagnosis Onset Date Resolution Status Admit Date Asthma-COPD overlap syndrome chronic September 10, 2024 1:33pm PHILIP (obstructive sleep apnea) chroni c September 10, 2024 1:33pm Tobacco abuse, in remission chronic September 10, 2024 1:33pm [facility] Work Phone: [phone] Evaluation note* Diagnosis Onset Date Resolution Status Admit Date Asthma-COPD overlap syndrome chronic March 12, 2024 12:29pm PHILIP (obstructive sleep apnea) chronic March 12 12:29pm Tobacco abuse, in remission chronic March 12, 2024 12:29pm [facility] Work Phone: [phone] Discharge summary Author Jagdish Day [facility] December 15, 2022 9:50am Note Date/Time December 15, 2022 7:33am [facility] Medical Records Department [address] [place] [id number] Emergency Department Summary 12/15/22 MR#: [id number] Acct: [id number] Name: TARSHA GONZALEZ Rep #:[id number] : [...] PFSH Medical History Atherosclerotic heart disease of platinum coronary artery without angina pectoris Cardiac murmur, [...] (Auto) 46.2 L Lymph % (Auto) 40.1 [place] % (Auto) 11.0 H Eos % (Auto) [...] rhythm rate 87 no acute signs of [place]. Discharge Plan Triage Chief Complaint: Shortness of [...] your Primary Care Provider. Call [facility] ([phone]) or report to the closest Emergency Room. Call 911 if necessary. 12/15/22 0950 <Electronically signed by Jagdish Day MD> Cosigner Signature (if applicable): CC: Dr. Kamilah Patel MD ~ Signed [facility] Work Phone: evaluation note* Diagnosis Onset Date Resolution Status COVID-19 acute Acute pharyngitis acute Asthma-COPD overlap syndrome chronic Lung nodule chronic PHILIP (obstructive sleep apnea) [facility] Work Phone: evaluation note* Diagnosis Onset Date Resolution Status Acute pharyngitis acute Asthma-COPD overlap syndrome chronic Lung nodule chronic PHILIP (obstructive sleep apnea) chronic [facility] Work Phone: evaluation note* Diagnosis Onset Date Resolution Status Asthma-COPD overlap syndrome chronic Lung nodule chronic PHILIP (obstructive sleep apnea) chronic [facility] Work Phone: evaluation note* Diagnosis Onset Date Resolution Status Urinary tract infection with hematuria acute [facility] Work Phone: evaluation note* Diagnosis Onset Date Resolution Status Urinary tract infection with hematuria acute Asthma-COPD overlap syndrome chronic PHILIP (obstructive sleep apnea) chronic Tobacco abuse, in remission chronic Urinary tract infection with hematuria acute [facility] Work Phone: Evaluation note* Diagnosis Onset Date Resolution Status Asthma-COPD overlap syndrome chronic PHILIP (obstructive sleep apnea) chronic Tobacco abuse, in remission chronic Urinary tract infection with hematuria acute [facility] Work Phone: evaluation noteNo assessment information available [facility] Work Phone: evaluation note* Diagnosis Onset Date Resolution Status Asthma-COPD overlap syndrome chronic PHILIP (obstructive sleep apnea) chronic Tobacco abuse, in remission chronic [facility] Work Phone: Evaluation note* Diagnosis Onset Date Resolution Status Asthma-COPD overlap syndrome chronic PHILIP (obstructive sleep apnea) chronic Tobacco abuse, in remission chronic Shortness of breath acute Wheezing acute [facility] Work Phone: Evaluation note* Diagnosis Onset Date Resolution Status Shortness of breath acute Wheezing acute [facility] Work Phone: Evaluation note* Diagnosis Onset Date Resolution Status Shortness of breath acute Wheezing acute Asthma-COPD overlap syndrome chronic Tobacco abuse, in remission chronic [facility] Work Phone: Evaluation note* Diagnosis Onset Date Resolution Status Admit Date Drug-induced myopathy acute Oct virgen 2024 2:01pm Asthma-COPD overlap syndrome chronic January 20, 2025 2:01pm Obesity chronic January 20, 2025 2:01pm PHILIP (obstructive sleep apnea) chroni c January 20, 2025 2:01pm Social anxiety disorder chronic O ctober 2024 2:01pm Tobacco abuse, in remission chronic January 20, 2025 2:01pm [facility] Work Phone: Hospital Discharge instructions Additional Instructions Plenty of fluids and rest. Your nebulizer at home as needed for wheezing and shortness of breath. Prednisone 40 mg a day for the next 5 days starting tomorrow. Follow-up if not improving or return if worse.[facility] Work Phone: Hospital Discharge instructionsAdditional Instructions 1. Take the prednisone as prescribed for 5 days then return to your maintenance dose of 10 mg. 2. Since you have a nebulize at home you can do a treatment and repeat every 15 minutes for 2 or 3 treatments. If you are still having trouble breathing that would be a reason to come in to the emergency department. 3. You were not prescribed antibiotics and your white count is normal you do not have a fever and do not have a change in your sputum.[facility] Work Phone: Reason for referral (narrative)No reason for referral information availableWAultman Hospital Work Phone: Chief Complaint and Reason [...] am NUCALA November 14, 2024 12: 53pm Chief Complaint Admit Date 6 M FU September 10, 2024 1:33p m NUCALA September 10, 2024 2:23p m NUCALA October 17, 2024 1:14 pm DYSPNEA October 24, 2024 6:52 am DYSPNEA October 24, 2024 9:43 am NUCALA November 14, 2024 12: 53pm SOB December 24, 2024 9:04pm Chief Complaint Admit Date NUCALA October 17, 2024 1:14 pm DYSPNEA October 24, 2024 6:52 am DYSPNEA October 24, 2024 9:43 am NUCALA November 14, 2024 12: 53pm SOB December 24, 2024 9:04pm NUCALA January 16, 2025 1 2:53pm NICOTINE DEP January 19, 2025 1 :47pm 4 m f u January 20, 2025 2 :01pm J44.9 - Chronic obstructive pulmonary di sease, [facility] January 26, 2025 7:56am KUB- February 02, 2025 1 2:40pm Reason for Visit Admit Date Drug-induced myopathy January 20, 2025 2:01pm Asthma-COPD overlap syndrome January 2:01pm Obesity January 20, 2025 2 :01pm PHILIP (obstructive sleep apnea) January 202024 2:01pm Social anxiety disorder January 20 2:01pm Tobacco abuse, in remission January 2:01pm Chief Complaint Admit Date NUCALA October 17, 2024 1:14 pm DYSPNEA October 24, 2024 6:52 am DYSPNEA October 24, 2024 9:43 am NUCALA November 14, 2024 12: 53pm SOB December 24, 2024 9:04pm NUCALA January 16, 2025 1 2:53pm NICOTINE DEP January 19, 2025 1 :47pm 4 m f u January 20, 2025 2 :01pm J44.9 - Chronic obstructive pulmonary di sease, uns January 26, 2025 7:56am KUB- February 02, 2025 1 2:40pm LUNG February 03, 2025 8 :19am Family History No Family History Records Found [...] Date/ Time Living Will No April 05, 2 021 12:02am Power of Brick Veneer Maker No April 05, 2021 12:02am Advance Directive Response Recorded Date/ Time Living Will No April 04, 021 11:02pm Power of Brick Veneer Maker No April 04, 2021 11:02pm Advance Directive Response Recorded Date/ Time Living Will No December 15, 2 023 7:23am Power of Brick Veneer Maker No December 15, 2022 7:23am Advance Directive Response Recorded Date/ Time Living Will No December 15, 2 023 6:23am Power of Brick Veneer Maker No December 15, 2022 6:23am Advance Directive Response Recorded Date/ Time Living Will No December 15, 2 023 7:23am Do you have a Healthcare Power of Brick Veneer Maker? No December 15, 2022 7:23am Advance Directive Response Recorded Date/ Time Do you have a Healthcare Power of Brick Veneer Maker? No December 24, 2024 9:18pm Summary Purpose Additional Source Comments Goals (unrecognized [...] Primary Care Provider, Referrin g Provider Active SWETHA Herr Attending Provider Active [...] Primary Care Provider Active Cathie De Jesus EGGS INSPECTOR, EGGS INSPECTOR-C Attending Provider, Referrin g Provider Active Team Status: Inactive Member Role Status Dates Dr. Kamilah Patel MD Primary Care Provider, Referrin g Provider Active Cathie De Jesus EGGS INSPECTOR, EGGS INSPECTOR-C Attending Provider Active Team Status: Inactive Member [...] End: March 12, 2024 Cathie De Jesus EGGS INSPECTOR, EGGS INSPECTOR-C Attending Provider Active Start: March 12, 2024 End: March 12, 2024 Team Status: Inactive Member Role Status Dates Dr. Namoi Whyte DO Primary Care Provider Active Start: March 21, 2024 End: March 21, 2024 Cathie De Jesus EGGS INSPECTOR, EGGS INSPECTOR-C Attending Provider Active Start: March 21, 2024 End: March 21, 2024 Cathie eD Jesus EGGS INSPECTOR, EGGS INSPECTOR-C Referring Provider Active Start: March 21, 2024 End: March 21, 2024 Team Status: Inactive Member Role Status Dates Dr. Naomi Whyte DO Primary Care Provider Active Start: April 25, 2024 End: April 25, 2024 Cathie De Jesus EGGS INSPECTOR, EGGS INSPECTOR-C Attending Provider Active Start: April 25, 2024 End: April 25, 2024 Cathie De Jesus EGGS INSPECTOR, EGGS INSPECTOR-C Referring Provider Active Start: April 25, 2024 End: April 25, 2024 Team Status: Inactive Member Role Status Dates Dr. Naomi Whyte DO Primary Care Provider Active Start: July 04, 2024 End: July 04, 2024 Cathie De Jesus EGGS INSPECTOR, EGGS INSPECTOR-C Attending Provider Active Start: July 04, 2024 End: July 04, 2024 Cathie De Jesus EGGS INSPECTOR, EGGS INSPECTOR-C Referring Provider Active Start: July 04, 2024 End: July 04, 2024 Team Status: Inactive Member Role Status Dates Dr. Naomi Whyte DO Primary Care Provider Active Start: September 10, 2024 End: September 10, 2024 Dr. Naomi Whyte DO Referring Provider Active St art: September 10, 2024 End: September 10, 2024 Cathie De Jesus EGGS INSPECTOR, EGGS INSPECTOR-C Attending Provider Active Start: September 10, 2024 End: September 10, 2024 Team Status: Active Member Role Status Dates Dr. Naomi Whyte DO Primary Care Provider Active Start: September 10, 2024 Cathie De Jesus EGGS INSPECTOR, EGGS INSPECTOR-C Attending Provider Active Start: September 10, 2024 Cathie De Jesus EGGS INSPECTOR, EGGS INSPECTOR-C Referring Provider Active Start: September 10, 2024 Team Status: Inactive Member Role Status Dates Dr. Naomi Whyte DO Primary Care Provider Active Start: September 10, 2024 End: September 10, 2024 Cathie De Jesus EGGS INSPECTOR, EGGS INSPECTOR-C Attending Provider Active Start: September 10, 2024 End: September 10, 2024 Cathie De Jesus EGGS INSPECTOR, EGGS INSPECTOR-C Referring Provider Active Start: September 10, 2024 End: September 10, 2024 Team Status: Active Member Role/Relationship Status Dates Dr. Naomi Whyte DO Primary Care Provider Active Team Status: Inactive Member Role/Relationship Status Dates Dr. Naomi Whyte DO Primary Care Provider Active Start: July 04, 2024 End: July 04, 2024 Cathie De Jesus EGGS INSPECTOR, EGGS INSPECTOR-C Attending Provider Active Start: July 04, 2024 End: July 04, 2024 Cathie De Jesus EGGS INSPECTOR, EGGS INSPECTOR-C Referring Provider Active Start: July 04, 2024 End: July 04, 2024 Team Status: Inactive Member Role/Relationship Status Dates Dr. Naomi Whyte DO Primary Care Provider Active Start: September 10, 2024 End: September 10, 2024 Dr. Naomi Whyte DO Referring Provider Active St art: September 10, 2024 End: September 10, 2024 Cathie De Jesus EGGS INSPECTOR, EGGS INSPECTOR-C Attending Provider Active Start: September 10, 2024 End: September 10, 2024 Team Status: Inactive Member Role/Relationship Status Dates Dr. Naomi Whyte DO Primary Care Provider Active Start: September 10, 2024 End: September 10, 2024 Cathie De Jesus EGGS INSPECTOR, EGGS INSPECTOR-C Attending Provider Active Start: September 10, 2024 End: September 10, 2024 Cathie De Jesus EGGS INSPECTOR, EGGS INSPECTOR-C Referring Provider Active Start: September 10, 2024 End: September 10, 2024 Team Status: Inactive Member Role/Relationship Status Dates Dr. Naomi Whyte DO Primary Care Provider Active Start: October 17, 2024 End: October 17, 2024 Cathie De Jesus EGGS INSPECTOR, EGGS INSPECTOR-C Attending Provider Active Start: October 17, 2024 End: October 17, 2024 Cathie De Jesus EGGS INSPECTOR, EGGS INSPECTOR-C Referring Provider Active Start: October 17, 2024 [...] End: September 10, 2024 Cathie De Jesus EGGS INSPECTOR, EGGS INSPECTOR-C Attending Provider Active Start: September 10, 2024 End: September 10, 2024 Team Status: Inactive Member Role/Relationship Status Dates Dr. Naomi Whyte DO Primary Care Provider Active Start: September 10, 2024 End: September 10, 2024 Cathie De Jesus EGGS INSPECTOR, EGGS INSPECTOR-C Attending Provider Active Start: September 10, 2024 End: September 10, 2024 Cathie De Jesus EGGS INSPECTOR, EGGS INSPECTOR-C Referring Provider Active Start: September 10, 2024 End: September 10, 2024 Team Status: Inactive Member Role/Relationship Status Dates Dr. Naomi Whyte DO Primary Care Provider Active Start: October 17, 2024 End: October 17, 2024 Cathie De Jesus EGGS INSPECTOR, EGGS INSPECTOR-C Attending Provider Active Start: October 17, 2024 End: October 17, 2024 Cathie De Jesus EGGS INSPECTOR, EGGS INSPECTOR-C Referring Provider Active Start: October 17, 2024 [...] End: November 14, 2024 Cathie De Jesus EGGS INSPECTOR, EGGS INSPECTOR-C Attending Provider Active Start: November 14, 2024 End: November 14, 2024 Cathie De Jesus EGGS INSPECTOR, EGGS INSPECTOR-C Referring Provider Active Start: November 14, 2024 [...] November 18, 2024 End: November 18, 2024 Team Status: Active Member Role/Relationship Status Dates Dr. Naomi Whyte DO Primary care physician Active Team Status: Inactive Member Role/Relationship Status Dates Dr. Naomi Whyte DO Primary care physician Active Start: September 10, 2024 End: September 10, 2024 Dr. Naomi Whyte DO Referring Provider Active St art: September 10, 2024 End: September 10, 2024 Cathie De Jesus EGGS INSPECTOR, EGGS INSPECTOR-C Attending physician Active Start: September 10, 2024 End: September 10, 2024 Team Status: Inactive Member Role/Relationship Status Dates Dr. Naomi Whyte DO Primary care physician Active Start: September 10, 2024 End: September 10, 2024 Cathie De Jesus EGGS INSPECTOR, EGGS INSPECTOR-C Attending physician Active Start: September 10, 2024 End: September 10, 2024 Cathie De Jesus EGGS INSPECTOR, EGGS INSPECTOR-C Referring Provider Active Start: September 10, 2024 End: September 10, 2024 Team Status: Inactive Member Role/Relationship Status Dates Dr. Naomi Whyte DO Primary care physician Active Start: October 17, 2024 End: October 17, 2024 Cathie De Jesus EGGS INSPECTOR, EGGS INSPECTOR-C Attending physician Active Start: October 17, 2024 End: October 17, 2024 Cathie De Jesus EGGS INSPECTOR, EGGS INSPECTOR-C Referring Provider Active Start: October 17, 2024 End: October 17, 2024 Team Status: Inactive Member Role/Relationship Status Dates Dr. Naomi Whyte DO Primary care physician Active Start: October 17, 2024 End: October 17, 2024 Dr. Naomi Wyhte DO Attending physician Active S tart: October 17, 2024 End: October 17, 2024 Team Status: Inactive Member Role/Relationship Status Dates Dr. Naomi Whyte DO Primary care physician Active Start: October 24, 2024 End: October 24, 2024 Dr. Angel Patel MD Attending physician Active Start: October 24, 2024 End: October 24, 2024 Dr. Angel Patel MD Referring Provider Active Start: October 24, 2024 End: October 24, 2024 Team Status: Active Member Role/Relationship Status Dates Dr. Naomi Whyte DO Primary care physician Active Start: October 24, 2024 Dr. Angel Patel MD Referring Provider Active Start: October 24, 2024 Dr. Angel Patel MD Nurse Practitioner Active Start: October 24, 2024 Dr. Mray Villasenor MD Attending physician Active Start: October 24, 2024 Team Status: Inactive Member Role/Relationship Status Dates Dr. Naomi Whyte DO Primary care physician Active Start: November 14, 2024 End: November 14, 2024 Cathie De Jesus EGGS INSPECTOR, EGGS INSPECTOR-C Attending physician Active Start: November 14, 2024 End: November 14, 2024 Cathie De Jesus EGGS INSPECTOR, EGGS INSPECTOR-C Referring Provider Active Start: November 14, 2024 End: November 14, 2024 Team Status: Inactive Member Role/Relationship Status Dates Dr. Naomi Whyte DO Primary care physician Active Start: November 18, 2024 End: November 18, 2024 Dr. Naomi Whyte DO Attending physician Active S tart: November 18, 2024 End: November 18, 2024 Dr. Naomi Whyte DO Referring Provider Active St art: November 18, 2024 End: November 18, 2024 Team Status: Inactive Member Role/Relationship Status Dates Dr. Naomi Whyte DO Primary care physician Active Start: December 24, 2024 End: December 24, 2024 Dr. Leobardo Harrington MD Emergency Department Physician Active Start: December 24, 2024 End: December 24, 2024 Team Status: Inactive Member Role/Relationship Status Dates Dr. Naomi Whyte DO Primary care physician Active Start: October 17, 2024 End: October 17, 2024 Cathie De Jesus EGGS INSPECTOR, EGGS INSPECTOR-C Attending physician Active Start: October 17, 2024 End: October 17, 2024 Cathie De Jesus EGGS INSPECTOR, EGGS INSPECTOR-C Referring Provider Active Start: October 17, 2024 End: October 17, 2024 Team Status: Inactive Member Role/Relationship Status Dates Dr. Naomi Whyte DO Primary care physician Active Start: October 17, 2024 End: October 17, 2024 Dr. Naomi Whyte DO Attending physician Active S tart: October 17, 2024 End: October 17, 2024 Team Status: Inactive Member Role/Relationship Status Dates Dr. Naomi Whyte DO Primary care physician Active Start: October 24, 2024 End: October 24, 2024 Dr. Angel Patel MD Attending physician Active Start: October 24, 2024 End: October 24, 2024 Dr. Angel Patel MD Referring Provider Active Start: October 24, 2024 End: October 24, 2024 Team Status: Active Member Role/Relationship Status Dates Dr. Naomi Whyte DO Primary care physician Active Start: October 24, 2024 Dr. Angel Patel MD Referring Provider Active Start: October 24, 2024 Dr. Angel Patel MD Nurse Practitioner Active Start: October 24, 2024 Dr. Mary Villasenor MD Attending physician Active Start: October 24, 2024 Team Status: Inactive Member Role/Relationship Status Dates Dr. Naomi Whyte DO Primary care physician Active Start: November 14, 2024 End: November 14, 2024 Cathie De Jesus EGGS INSPECTOR, EGGS INSPECTOR-C Attending physician Active Start: November 14, 2024 End: November 14, 2024 Cathie De Jesus EGGS INSPECTOR, EGGS INSPECTOR-C Referring Provider Active Start: November 14, 2024 End: November 14, 2024 Team Status: Inactive Member Role/Relationship Status Dates Dr. Naomi Whyte DO Primary care physician Active Start: November 18, 2024 End: November 18, 2024 Dr. Naomi Whyte DO Attending physician Active S tart: November 18, 2024 End: November 18, 2024 Dr. Naomi Whyte DO Referring Provider Active St art: November 18, 2024 End: November 18, 2024 Team Status: Inactive Member Role/Relationship Status Dates Dr. Naomi Whyte DO Primary care physician Active Start: December 24, 2024 End: December 24, 2024 Dr. Leobardo Harrington MD Attending physician Active St art: December 24, 2024 End: December 24, 2024 Dr. Leobardo Harrington MD Emergency Department Physician Active Start: December 24, 2024 End: December 24, 2024 Team Status: Inactive Member Role/Relationship Status Dates Dr. Naomi Whyte DO Primary care physician Active Start: January 16, 2025 End: January 16, 2025 Cathie De Jesus EGGS INSPECTOR, EGGS INSPECTOR-C Attending physician Active Start: January 16, 2025 End: January 16, 2025 Cathie De Jesus EGGS INSPECTOR, EGGS INSPECTOR-C Referring Provider Active Start: January 16, 2025 End: January 16, 2025 Team Status: Inactive Member Role/Relationship Status Dates Dr. Naomi Whyte DO Primary care physician Active Start: January 19, 2025 End: January 19, 2025 Cathie De Jesus EGGS INSPECTOR, EGGS INSPECTOR-C Attending physician Active Start: January 19, 2025 End: January 19, 2025 Cathie De Jesus NP, EGGS INSPECTOR-C Referring Provider Active Start: January 19, 2025 End: January 19, 2025 Team Status: Inactive Member Role/Relationship Status Dates Dr. Noami Whyte DO Primary care physician Active Start: January 20, 2025 End: January 20, 2025 Dr. Naomi Whyte DO Referring Provider Active St art: January 20, 2025 End: January 20, 2025 Cathie De Jesus NP, EGGS INSPECTOR-C Attending physician Active Start: January 20, 2025 End: January 20, 2025 Team Status: Active Member Role/Relationship Status Dates Dr. Naomi Whyte DO Primary care physician Active Start: January 26, 2025 Cathie De Jesus NP, EGGS INSPECTOR-C Attending physician Active Start: January 26, 2025 Cathie De Jesus NP, EGGS INSPECTOR-C Referring Provider Active Start: January 26, 2025 Team Status: Active Member Role/Relationship Status Dates Dr. Naomi Whyte DO Primary care physician Active Start: February 02, 2025 Dr. Naomi Whyte DO Attending physician Active S tart: February 02, 2025 Dr. Naomi Whyte DO Referring Provider Active St art: February 02, 2025 Team Status: Inactive Member Role/Relationship Status Dates Dr. Naomi Whyte DO Primary care physician Active Start: January 26, 2025 End: January 26, 2025 Cathie De Jesus NP, EGGS INSPECTOR-C Attending physician Active Start: January 26, 2025 End: January 26, 2025 Cathie De Jesus NP, EGGS INSPECTOR-C Referring Provider Active Start: January 26, 2025 End: January 26, 2025 Team Status: Active Member Role/Relationship Status Dates Dr. Naomi Whyte DO Primary care physician Active Start: February 03, 2025 Cathie De Jesus NP, EGGS INSPECTOR-C Attending physician Active Start: February 03, 2025 Cathie De Jesus EGGS INSPECTOR, EGGS INSPECTOR-C Referring Provider Active Start: February 03, 2025 INFORMATION SOURCE (unrecogn ized section and content) DATE CREATED AUTHOR 02/15/2025 [facility] FOR RECORDS PERTAINING TO [...] BE BASED ON THE PRIMARY CLINICAL RECORDS. [facility]. provides no warranty or guarantee of the accuracy or completeness of information in this document.
[2025-04-03] MEDS: 0.9% Normal Saline (1000mL) 1,000 ML 999 ML IV (05:59)
[2025-04-03 06:01] LABS: Hematocrit 40.9 % (37-47); Hemoglobin 13.8 g/dL (12.0-15.0); Immature Granulocytes Count 0.030 X10^3/uL (0.0-0.0); Mean Corp Hgb Conc 33.7 g/dL (32-36); Mean Corpuscular Volume 85.9 fL (81-99); Mean Platelet Vol. 8.6 fl (6.2-12.0); NRBC Flagged by Analyzer 0 % (0-5); POSITIVE DIFFERENTIAL YES; Platelet Count 265 K/mm3 (150-450); RBC Distribution Width CV 13.0 % (11.6-14.6); RBC Distribution Width SD 41.0 fl (35.1-43.9); Red Blood Count 4.76 M/mm3 (4.2-5.4); White Blood Count 8.8 K/mm3 (4.4-11.0)
[2025-04-03 06:09] LABS: Prothrombin Time (Protime)PT. 13.7 SECONDS (11.7-14.9)
[2025-04-03 06:10] LABS: Partial Thromboplast Time 26.8 Seconds (24.1-36.2)
[2025-04-03 06:41] LABS: AST(SGOT) 33 U/L (<=31); Alanine Aminotransfer ALT/SGPT 25 U/L (<=34); Albumin, Serum 4.4 g/dL (3.4-4.8); Alkaline Phosphatase 98 U/L (35-104); Anion Gap 13 (7-18); BUN 8 mg/dL (4-19); BUN/Creat Ratio 8.6 RATIO (10-20); Calcium,Total 9.5 mg/dL (7.6-11.0); Carbon Dioxide 20.0 mmol/L (20.0-29.0); Chloride 106 mmol/L (96-106); Estimated Creatinine Clearance 64.23 ml/min (50-250); Globulin 2.6 g/dL (2.2-4.2); Glucose 129 mg/dL (70-99); Lipase 17 U/L (13-75); Potassium 3.5 mmol/L (3.5-5.1); Pro- Brain NATRIURETIC PEPTIDE 80 pg/mL (<=900); Troponin T High Sensitivity 27 ng/L (<=14)
--- NOTE | 2025-04-03 09:26 | HP.PCM.HOS_ITS ---
HPI - General General Date of Admission: 04/03/25 Date of Service: 04/03/25 Chief Complaint: chest pain HPI Narrative TARSHA GONZALEZ, is a 70 F with a past medical history as outlined was admitted through the ED on 04/03/2025 with complaint of chest pain. His symptoms have started a day prior to admission. She said the pain was retrosternal and pressure-like. Radiated to her upper abdomen and had no aggravating or relieving factors. She denied any history of heart disease though she was told that she had a stress test in October 2024 and was told that her echo was also abnormal but does not recently was wrong with it. She denied any lightheadedness, palpitations, nausea vomiting or any other symptoms. Review of systems otherwise negative. Vitals in the ED where blood pressure 116/79, pulse rate of 106, respirate rate of 18 and temperature of 98.6 Fahrenheit. She was saturating at 92% on room air. CBC showed hemoglobin of 13.8 with WBC of 8.8 and platelets of 265. INR was 1. Chemistry showed sodium of 139 with potassium of 3.5 and bicarb of 20. Creatinine was 0.88. Initial troponin was 27 and delta troponin was still pending. proBNP was 18. EKG showed no acute ST changes. She is being admitted to be managed for chest pain rule out ACS. [facility] Medical History Depression Anxiety Former smoker Asthma Glaucoma Macular degeneration of both eyes Social anxiety disorder Sense of smell altered Urinary tract infection with hematuria COVID-19 COPD (chronic obstructive pulmonary disease) TORREZ (dyspnea on exertion) PHILIP (obstructive sleep apnea) Nicotine dependence in remission Obesity Atherosclerotic heart disease of [place] coronary artery without angina pectoris Cardiac murmur, unspecified Chest pain, unspecified Hyperlipidemia Peripheral vascular disease Central sleep apnea UTI (urinary tract infection) Urinary frequency Home Medications ?Medication ?Instructions ?Recorded ?Last Taken ?Type clopidogrel 75 mg tablet 75 mg PO DAILY anti platelet 10/23/15 05/10/18 History spacer #1 ea 07/29/19 Unknown Rx Disability Placard #1 ea 01/04/21 Unknown Rx estradiol 0.025 mg/24 hr weekly 1 patch transdermal QW AKUTAN hormones 04/20/23 04/03/25 History transdermal patch albuterol sulfate 90 mcg/actuation 2 puff inhalation Q 4H PRN 09/10/24 Unknown Rx aerosol inhaler shortness of breath or wheez ing #8.5 grams latanoprost 0.005 % eye drops 1 drp ophthalmic (eye) Q HS eye 09/10/24 Unknown History health lorazepam 1 mg tablet 1 mg PO BID PRN anxiety 06/0 08/0104/03/25 History albuterol sulfate 2.5 mg/3 mL 2.5 mg (3 mL) inhalation Q4H PRN 11/06/24 Unknown Rx (0.083 %) solution for nebulization #120 vials fluvoxamine 100 mg tablet 100 mg PO QHS depression 02/03/25 20:00 History 100 mg guaifenesin 600 mg tablet, 1,200 mg (2 x 600 mg) PO BI D 10 02/05/25 Unknown Rx extended release 12 hr (Mucinex) days #40 tabs dupilumab 300 mg/2 mL subcutaneous 600 mg (4 mL) subcu t ONCE #4 mL 03/12/25 Unknown Rx pen injector (Dupixent) fluticasone fur. 200 mcg-umeclid 1 inh inhalation RENNY Y #60 ea 03/12/25 Unknown Rx 62.5 mcg-vilant 25 mcg inhalat.powder (Trelegy Ellipta) ipratropium 0.5 mg-albuterol 3 mg 3 ml inhalation Q4H PRN PRN SOB 03/12/25 Unknown Rx (2.5 mg base)/3 mL nebulization &/OR WHEEZING #180 mL soln dupilumab 300 mg/2 mL subcutaneous 300 mg subcut Q2W 1 06/04/24 Unknown History pen injector (Dupixent) suvorexant 5 mg tablet (Belsomra) 5 mg PO QHS PRN 03/10 10/01 Unknown History Allergy/AdvReac Type Severity Reaction Status Date / Time codeine Allergy Itching Verified 04/03/25 05:42 morphine Allergy Itching Verified 04/03/25 05:42 doxycycline AdvReac Severe severe Verified 04/03/25 05:42 headaches and muscle spasms to the chest Family History Mother Cancer lung and cervical Father Emphysema Chronic Bronchitis, in 80s. Sister Diabetes CAD (coronary artery disease) Sister Heart disease Brother Respiratory abnormalities Colon cancer Surgical History History of cardiac catheterization H/O oophorectomy History of tonsillectomy H/O: hysterectomy S/P surgical manipulation of ankle joint Social History (Updated 04/03/25 @ 10:22 by Becka Carpio) Smoking Status: Former smoker pack-years: 80 Tobacco: How many years used: 40 how long ago did patient quit smoking: about 8 years ago second hand exposure: No alcohol intake: never substance use type: does not use what type of physical activity do you participate in: none ROS Constitutional Constitutional: Denies anorexia, chills, fatigue, fever(s), malaise or weakness Eyes Eyes: Denies change in vision ENT HEENT: Denies dysphagia, headache(s) or sore throat Cardiovascular Cardiovascular: Reports chest pain; Denies dyspnea on exertion, edema, lightheadedness, orthopnea, palpitations, paroxysmal nocturnal dyspnea, rapid heart rate or syncope Respiratory/Chest Respiratory/Chest: Denies cough, dyspnea, shortness of breath at rest or shortness of breath with exertion Gastrointestinal Gastrointestinal: Denies abdominal pain, constipation, diarrhea, nausea or vomiting Genitourinary Genitourinary: Denies dysuria Musculoskeletal Musculoskeletal: Denies joint pain Neurologic Neurologic: Denies confusion, dizziness, focal weakness, headache(s), numbness, paresthesias, seizure-like activity, seizures or syncope Psychiatric Psychiatric: Denies anxiety or depression Endocrine Endocrinology: Denies change in body appearance Patient's Goals Of Care . What would you like to achieve or improve as a result of your hospital stay?: to find out what is causing her chest pain and get better Vital Signs Vital Signs Vital Signs: 04/03/25 05:41 04/03/25 05:41 04/03/25 05:48 Temperature 98.5 F Temperature Source Oral Pulse Rate 114 H Respiratory Rate 22 H Respiratory Effort Short of Breath Labored Respiratory Pattern Tachypnea Blood Pressure 160/82 H Blood Pressure Mean 108 Pulse Ox 91 91 Oxygen Delivery Method Room Air Room Air 04/03/25 06:41 04/03/25 07:00 04/03/25 08:00 Temperature Temperature Source Pulse Rate 120 H 120 H 94 Respiratory Rate 22 H 22 H 20 H Respiratory Effort Respiratory Pattern Blood Pressure 140/73 H 140/73 H 108/50 L Blood Pressure Mean 95 95 69 Pulse Ox 93 93 93 Oxygen Delivery Method Weight Weight: 203 lb 11.314 oz Body Mass Index (BMI) 36.1 Physical Exam Const alert, oriented x3 and no apparent distress General Appearance: cooperative HEENT normocephalic, head/scalp atraumatic, hearing grossly normal bilaterally, moist oral mucous membranes and oropharynx normal Mouth: oral and palatal mucosa normal Eyes EOMs intact bilaterally and conjunctivae normal Neck supple Resp normal respiratory effort, no retractions and no use of accessory muscles Cardio regular rate, regular rhythm, S1 normal heart sound, S2 normal heart sound and no murmurs GI normal to inspection, nondistended, normoactive bowel sounds, soft to palpation, non-tender and non-distended Extremity normal to inspection, full ROM and no clubbing, cyanosis or edema Neuro oriented x3, moves all extremities and no focal motor deficits Sensorium / Orientation: awake and alert Motor Exam: strength 5/5 throughout Psych affect normal Results Lab / Micro Data 04/03/25 05:53 04/03/25 05:53 Labs: Laboratory Results - last 24 hr 04/03/25 05:53: WBC 8.8, RBC 4.76, Hgb 13.8, Hct 40.9, MCV 85.9, MCH 29.0, MCHC 33.7, RDW Std Deviation 41.0, RDW Coeff of Grace 13.0, Plt Count 265, MPV 8.6, Immature Gran % (Auto) 0.300, Neut % (Auto) 86.5 H, Lymph % (Auto) 5.1 L, [place] % (Auto) 6.9, Eos % (Auto) 0.7, Baso % (Auto) 0.5, Absolute Neuts (auto) 7.7, A bsolute Lymphs (auto) 0.45 L, Nucleated RBC % 0, PT 13.7, INR 1.0, APTT 26.8, Sodium 139, Potassium 3.5, Chloride 106, Carbon Dioxide 20.0, Anion Gap 13, BUN 8, Creatinine 0.88, Estim Creat Clear Calc 64.23, Est GFR (MDRD) Non-Af 70, B UN/Creatinine Ratio 8.6 L, Glucose 129 H, Calcium 9.5, Total Bilirubin 0.45, AST 33 H, ALT 25, Alkaline Phosphatase 98, Troponin T High Sens 27 H D, NT pro BNP II 80, Total Protein 7.0, Albumin 4.4, Globulin 2.6, Albumin/Globulin Ratio 1.7, Lipase 17 04/03/25 08:00: Troponin T Hi Sens 2 Hr Cancelled Imaging Radiology Impression Chest CTA 04/03/25 05:48 IMPRESSION: Slight superior mediastinal adenopathy. This finding should be re-evaluated with CT at 6 months from this examination. Reading Location: [id number] Assessment & Plan Assessment/Plan (1) Chest pain on exertion: PLAN: Plan #nonstemi * admit to PCU * was admitted with a complaint of chest pain. EKG showed no acute ST changes and initial troponin was 27. * delta troponin went up to 91 * she did have a stress test in October 2024 which was normal and showed no evidence of ischemia. 2D echo done in October 2024 also showed EF of 65% with indeterminate diastolic function and mildly enlarged left atrium. * CTA chest showed slight superior mediastinal adenopathy * consult cardiology. Start on therapeutic lovenox and high intensity statin as well as oral aspirin * get limited 2D echo * already on plavix, will continue also * #History of asthma and COPD: Dupixent which is held during this admission as she takes it once a week. On breathing treatment bronchodilators. #Depression: on fluvoxamine and lorazepam as needed DVT prophylaxis: therapeutic lovenox in light of patient having nonstemi Code status: full code * Patient counseled extensively about different types of CODE STATUS including full code, DNR CCA and DNR CCA. Patient elects to be full code. * Total [id number] time 16 minutes. Charges/Coding Visit Charges Inpatient E&M: 32050 Init Hosp L3 Procedures Hospitalists Procedures: 20827 Advncd Care Plan 30 Min
--- NOTE | 2025-04-03 09:26 | EDS_ITS ---
HPI History of Present Illness Chief Complaint: Chest Pain Narrative Narrative: Patient was seen and examined after presenting to ED for chest pain and pressure with exertional symptoms and shortness of breath states that she was told that she had an WA in the past but never had stents she is on Plavix however she does have family history and also uses tobacco and has hyperlipidemia. She reports that she took nitro at home which did improve her symptoms. [facility] Medical History Depression Anxiety Former smoker Asthma Glaucoma Macular degeneration of both eyes Social anxiety disorder Sense of smell altered Urinary tract infection with hematuria COVID-19 COPD (chronic obstructive pulmonary disease) TORREZ (dyspnea on exertion) PHILIP (obstructive sleep apnea) Nicotine dependence in remission Obesity Atherosclerotic heart disease of [place] coronary artery without angina pectoris Cardiac murmur, unspecified Chest pain, unspecified Hyperlipidemia Peripheral vascular disease Central sleep apnea UTI (urinary tract infection) Urinary frequency Home Medications ?Medication ?Instructions ?Recorded ?Last Taken ?Type clopidogrel 75 mg tablet 75 mg PO DAILY anti platelet 10/23/15 05/10/18 History spacer #1 ea 07/29/19 Unknown Rx Disability Placard #1 ea 01/04/21 Unknown Rx estradiol 0.025 mg/24 hr weekly 1 patch transdermal QW [facility] hormones 04/20/23 04/03/25 History transdermal patch albuterol sulfate 90 mcg/actuation 2 puff inhalation Q 4H PRN 09/10/24 Unknown Rx aerosol inhaler shortness of breath or wheez ing #8.5 grams latanoprost 0.005 % eye drops 1 drp ophthalmic (eye) Q HS eye 09/10/24 Unknown History health lorazepam 1 mg tablet 1 mg PO BID PRN anxiety 06/0 08/0104/03/25 History albuterol sulfate 2.5 mg/3 mL 2.5 mg (3 mL) inhalation Q4H PRN 11/06/24 Unknown Rx (0.083 %) solution for nebulization #120 vials fluvoxamine 100 mg tablet 100 mg PO QHS depression 02/03/25 20:00 History 100 mg guaifenesin 600 mg tablet, 1,200 mg (2 x 600 mg) PO BI D 10 02/05/25 Unknown Rx extended release 12 hr (Mucinex) days #40 tabs dupilumab 300 mg/2 mL subcutaneous 300 mg (2 mL) subcu t Q2W #2 mL 03/12/25 Unknown Rx pen injector (Dupixent) dupilumab 300 mg/2 mL subcutaneous 600 mg (4 mL) subcu t ONCE #4 mL 03/12/25 Unknown Rx pen injector (Dupixent) fluticasone fur. 200 mcg-umeclid 1 inh inhalation RENNY Y #60 ea 03/12/25 Unknown Rx 62.5 mcg-vilant 25 mcg inhalat.powder (Trelegy Ellipta) ipratropium 0.5 mg-albuterol 3 mg 3 ml inhalation Q4H PRN PRN SOB 03/12/25 Unknown Rx (2.5 mg base)/3 mL nebulization &/OR WHEEZING #180 mL soln suvorexant 5 mg tablet (Belsomra) 5 mg PO QHS PRN 03/10 10/01 Unknown History Allergy/AdvReac Type Severity Reaction Status Date / Time codeine Allergy Itching Verified 04/03/25 05:42 morphine Allergy Itching Verified 04/03/25 05:42 doxycycline AdvReac Severe severe Verified 04/03/25 05:42 headaches and muscle spasms to the chest Family History Mother Cancer lung and cervical Father Emphysema Chronic Bronchitis, in 80s. Sister Diabetes CAD (coronary artery disease) Sister Heart disease Brother Respiratory abnormalities Colon cancer Surgical History History of cardiac catheterization H/O oophorectomy History of tonsillectomy H/O: hysterectomy S/P surgical manipulation of ankle joint Social History Smoking Status: Former smoker pack-years: 80 Tobacco: How many years used: 40 how long ago did patient quit smoking: about 8 years ago second hand exposure: No alcohol intake: never substance use type: does not use what type of physical activity do you participate in: none ROS ROS ED ROS Narrative Pertinent Positives: Chest pain pressure shortness of breath worse with exertion Pertinent Negatives: Fevers chills vomiting diarrhea black or bloody stools urinary symptoms The remainder of review of systems negative unless otherwise stated in the HPI above. Systems reviewed including constitutional, psychiatric, cardiovascular, respiratory, integument, HENT, gastrointestinal. EXAM Physical Exam Narrative Exam Narrative: Patient is afebrile hemodynamically stable does not appear toxic or in distress normal heart and lung sounds abdomen is soft nontender nondistended no palpable pulsatile mass. She reports pain is also going underneath her left breast. No significant lower extremity edema or calf tenderness. She has intact MSPs. Const Vital Signs: 04/03/25 05:41 04/03/25 05:41 04/03/25 05:48 Temperature 98.5 F Temperature Source Oral Pulse Rate 114 H Respiratory Rate 22 H Respiratory Effort Short of Breath Labored Respiratory Pattern Tachypnea Blood Pressure 160/82 H Blood Pressure Mean 108 Pulse Ox 91 91 Oxygen Delivery Method Room Air Room Air 04/03/25 06:41 04/03/25 07:00 04/03/25 08:00 Temperature Temperature Source Pulse Rate 120 H 120 H 94 Respiratory Rate 22 H 22 H 20 H Respiratory Effort Respiratory Pattern Blood Pressure 140/73 H 140/73 H 108/50 L Blood Pressure Mean 95 95 69 Pulse Ox 93 93 93 Oxygen Delivery Method Heart Score History: Highly Suspicious ECG: Normal Age: >/= 65 years Risk Factors: >/= 3 Risk Factors or History of CAD Troponin: >1 - <3 Normal Limit Score: 7 MDM MDM MDM Narrative Medical decision making narrative: Nursing notes, triage notes, available previous documentation, and vital signs were reviewed. Any discrepancies noted were addressed. Differential Diagnoses: Need to consider ACS lower suspicion for aortic etiology stilling to consider PE especially given pleuritic pains lower suspicion for pneumonia Interventions: Aspirin Fluids Given: 1 L normal saline Labs Reviewed: No leukocytosis leukopenia or anemia platelets are 265 no coagulopathy or electrolyte abnormality or renal insufficiency no significant transaminitis initial troponin is 27 proBNP is 80 lipase is 17. Delta troponin is pending Imaging Reviewed: CT angio of the chest slight superior mediastinal adenopathy that they are recommending reevaluation in [address] but no evidence of PE EKG: Sinus tachycardia rate of [address] segment elevation. EKG interpretation is noted and agreed to in the EMR. The interpretation of this patient's EKG contributed directly to the care and management of this patient. Risk Stratification Tools: PERC Rule: Age:>50, +1 Heart Rate:>100, +1 Room Air Pulse Ox <95%: Yes, +1 Unilateral Leg Swelling: No, 0 Hemoptysis: No, 0 Recent Surgery or Trauma: No, 0 Prior PE or DVT: No, 0 Hormone Use: No, 0 PERC positive. Wells Score: Clinical signs & symptoms of DVT: No PE is #1 diagnosis or equally likely: Yes +3 HR >100 at any time: Yes +1.5 Immobilization at least 3 days or surgery in the previous 4 weeks: No Previous, objectively diagnosed PE or DVT: No Hemoptysis: No Malignancy in last 6 months: No Risk: Moderate 2-6 points: 16.2% incidence of PE. CTA ordered. Previous Documentation Reviewed: None available or applicable at this time. ED Course: Patient presenting with exertional chest pain pressure and shortness of breath patient has risk factors for heart score is a 7 delta troponin on her is pending her initial 1 was slightly elevated at 27 given the story with her risk factors and the elevated troponin patient at least needs a stress test if the delta troponin is flat so I did have a owuf-[id number] conversation with Dr Rice who is agreeable to admission. This note was made utilizing voice recognition software. All attempts were made to correct spelling or other errors prior to note completion. However, due to the fast-paced nature of emergency medicine, some errors may still be present. Lab Data Labs: Laboratory Results - last 24 hr 04/03/25 04/03/25 05:53 08:00 WBC 8.8 RBC 4.76 Hgb 13.8 Hct 40.9 MCV 85.9 MCH 29.0 MCHC 33.7 RDW Std Deviation 41.0 RDW Coeff of Grace 13.0 Plt Count 265 MPV 8.6 Immature Gran % (Auto) 0.300 Neut % (Auto) 86.5 H Lymph % (Auto) 5.1 L [place] % (Auto) 6.9 Eos % (Auto) 0.7 Baso % (Auto) 0.5 Absolute Neuts (auto) 7.7 Absolute Lymphs (auto) 0.45 L Nucleated RBC % 0 PT 13.7 INR 1.0 APTT 26.8 Sodium 139 Potassium 3.5 Chloride 106 Carbon Dioxide 20.0 Anion Gap 13 BUN 8 Creatinine 0.88 Estim Creat Clear Calc 64.23 Est GFR (MDRD) Non-Af 70 BUN/Creatinine Ratio 8.6 L Glucose 129 H Calcium 9.5 Total Bilirubin 0.45 AST 33 H ALT 25 Alkaline Phosphatase 98 Troponin T High Sens 27 H D Troponin T Hi Sens 2 Hr Cancelled NT pro BNP II 80 Total Protein 7.0 Albumin 4.4 Globulin 2.6 Albumin/Globulin Ratio 1.7 Lipase 17 Radiography Diagnostic Testing: Clinical Impression(s) from Imaging Studies Chest CTA 04/03/25 05:48 IMPRESSION: Slight superior mediastinal adenopathy. This finding should be re-evaluated with CT at 6 months from this examination. Reading Location: [facility] Discharge Plan Triage Chief Complaint: Chest Pain ED Provider: Fausto Florian Dx/Rx/DC Orders Clinical Impression: Chest pain on exertion, TORREZ (dyspnea on exertion), Elevated troponin Prescriptions: No Action (DME) spacer See Rx Instructions .Route .MEDSUPPLY Qty: 1 0RF Rx Instructions: As directed (DME) Disability Placard See Rx Instructions .Route .MEDSUPPLY Qty: 1 0RF Rx Instructions: expires 12/10/2025 estradiol 0.025 mg/24 hr patch weekly 1 patch transdermal QWEEK Patient Comments: applied on Sundays lorazepam 1 mg tablet 1 mg PO BID PRN (Reason: anxiety) latanoprost 0.005 % drops 1 drp ophthalmic (eye) QHS albuterol sulfate 90 mcg/actuation HFA aerosol inhaler 2 puff inhalation Q4H PRN (Reason: shortness of breath or wheezing) Qty: 8.5 6RF Rx Instructions: administer with spacer ipratropium-albuterol 0.5 mg-3 mg(2.5 mg base)/3 mL solution for nebulization 3 ml inhalation Q4H PRN PRN (Reason: SOB &/OR WHEEZING) Qty: 180 6RF Dupixent Pen 300 mg/2 mL pen injector 600 mg subcut ONCE Qty: 4 0RF Rx Instructions: as a single dose Dupixent Pen 300 mg/2 mL pen injector 300 mg subcut Q2W Qty: 2 11RF Trelegy Ellipta 200-62.5-25 mcg blister with device 1 inh inhalation DAILY Qty: 60 11RF clopidogrel 75 MG tablet 75 mg PO DAILY fluvoxamine 100 mg tablet 100 mg PO QHS Patient Comments: pt takes in evening guaifenesin [Mucinex] 600 mg tablet extended release 12hr 1,200 mg PO BID 10 Days Qty: 40 0RF Belsomra 5 mg tablet 5 mg PO QHS PRN albuterol sulfate 2.5 mg /3 mL (0.083 %) solution for nebulization 2.5 mg INHALATION Q4H PRN Qty: 120 6RF Rx Instructions: Use q4 hours and PRN for wheezing Primary Care Provider: Naomi Whyte Referrals: Naomi Whyte DO [Primary Care Provider, Family Practice] Print Language: German
--- OUTSIDE RECORDS SUMMARY | 2025-04-03 10:06 | XMS RPT_ITS | CCD ---
Author Organization [facility] Care Team Providers Care Compliance Tester Name Role Phone Yensho AGRICULTURAL EQUIPMENT SALES ENGINEER, Brisa A Unavailable Unavailab le Marie AGRICULTURAL EQUIPMENT SALES ENGINEER, Kristen Anabel Unavailable Unavaila ble Yensho AGRICULTURAL EQUIPMENT SALES ENGINEER, Brisa A Unavailable Unavailab le Tod AGRICULTURAL EQUIPMENT SALES ENGINEER, Leilani N Unavailable Unavailab le Tod AGRICULTURAL EQUIPMENT SALES ENGINEER, Leilani N Unavailable Unavailab le Cogar AGRICULTURAL EQUIPMENT SALES ENGINEER, Mariel N Unavailable Cogar AGRICULTURAL EQUIPMENT SALES ENGINEER, Mariel N Unavailable Dr. Kamilah Patel Primary Care Provider [phone] Dr. Kamilah Patel Referring Provider SWETHA Caballero Attending Provider SWETHA Vargas Attending Provider Neal CHANNEL WORKER, CHANNEL WORKER-C Cathie Attending Provider Dr. Kamilah Patel Primary Care Provider [phone] Dr. Kamilah Patel Referring Provider [phone] Neal CHANNEL WORKER, CHANNEL WORKER-C Cathie Referring Provider Dr. Kamilah Patel Primary Care Provider [phone] Kamilah Patel Primary Care Provider [phone] Dr. Kamilah Patel Referring Provider [phone] SWETHA Caballero Attending Provider Dr. Kamilah Patel [...] [phone] Dr. Kamilah Patel Referring Provider Neal CHANNEL WORKER, CHANNEL WORKER-C Cathie Attending Provider [phone] Dr. Kamilah Patel Primary Care Provider [phone] Kamilah Patel Referring Provider Dr. Anthony Jalloh Attending Provider Neal CHANNEL WORKER, CHANNEL WORKER-C Cathie Attending Provider [phone] SWETHA Caballero Attending Provider Dr. Kamilah Patel Primary Care Provider Dr. Kamilah Patel Referring Provider Dr. Kamilah Patel Primary Care Provider Dr. Kamilah Patel Referring Provider Neal CHANNEL WORKER, CHANNEL WORKER-C Cathie Attending Provider [phone] SWETHA Caballero Attending Provider Dr. Naomi Whyte DO Primary Care Provider Dr. Naomi Whyte DO Referring Provider [phone] Neal MORAN-CCathie Attending Provider Neal MORAN-CCathie Referring Provider Pato BYRNES Dr. Naomi Primary Care Provider [phone] Neal CHANNEL WORKER-C, Cathie Attending Provider De Jesus CHANNEL WORKER-C, Cathie Referring Provider Pato BYRNES, Dr. Salgado Referring Provider Pato BYRNES, Dr. Salgado Attending Provider Amanda MENDEZ, Dr. Ortiz Attending Provider Amanda MENDEZ, Dr. Ortiz Referring Provider Amanda MENDEZ, Dr. Ortiz Other Provider [phone] Hamilton MENDEZ, Dr. Hernandez Attending Provider [phone] Pato BYRNES, Dr. Salgado Primary Care Provider [phone] Neal CHANNEL WORKER-C, Cathie Attending Provider Neal CHANNEL WORKER-C, Cathie Referring Provider Pato BYRNES, Dr. Salgado Primary Care Physician Neal CHANNEL WORKER-C, Cathie Attending Physician Pato BYRNES, Dr. Salgado Attending Physician Amanda MENDEZ, Dr. Ortiz Attending Physician [phone] Amanda MENDEZ, Dr. Ortiz Nurse Practitioner Hamitlon MENDEZ, Dr. Hernandez Attending Physician [phone] Len MENDEZ, Dr. Booth Emergency Department Physician Pato BYRNES, Dr. Salgado Primary Care Physician Neal CHANNEL WORKER-C, Cathie Attending Physician Neal CHANNEL WORKER-C, Cathie Referring Provider Pato BYRNES, Dr. Salgado Referring Provider Len MENDEZ, Dr. Booth Attending Physician De Jesus CHANNEL WORKER, Cathie Referring Unavailable Malys, Naomi Primary Care Unavailable De Jesus CHANNEL WORKER, Cathie Attending Unavailable De Jesus CHANNEL WORKER, Cathie Referring Unavailable Malys, Naomi Primary Care Unavailable De Jesus CHANNEL WORKER, Cathie Attending Unavailable De Jesus CHANNEL WORKER, Cathie Attending Unavailable Malys, Naomi Primary Care Unavailable De Jesus CHANNEL WORKER, Cathie Referring Unavailable Malys, Naomi Attending Unavailable Malys, Naomi Primary Care Unavailable Malys, Naomi Primary Care Unavailable De Jesus CHANNEL WORKER, Cathie Attending Unavailable De Jesus CHANNEL WORKER, Cathie Referring Unavailable Malys, Naomi Primary Care Unavailable De Jesus CHANNEL WORKER, Cathie Attending Unavailable De Jesus CHANNEL WORKER, Cathie Referring Unavailable Malys, Naomi Attending Unavailable Malys, Naomi Referring Unavailable Malys, Naomi Primary Care Unavailable Malys, Naomi Primary Care Unavailable De Jesus CHANNEL WORKER, Cathie Referring Unavailable De Jesus CHANNEL WORKER, Cathie Attending Unavailable Vaibhav Cardenas Attending Unavailable Malys, Naomi Primary Care Unavailable Katia, Amandeep Admitting Unavailable Amandeep Montalvo Consulting Unavailable Malys, Naomi Primary Care Unavailable De Jesus CHANNEL WORKER, Cathie Referring Unavailable De Jesus CHANNEL WORKER, Cathie Attending Unavailable Malys, Naomi Referring Unavailable Malys, Naomi Primary Care Unavailable De Jesus CHANNEL WORKER, Cathie Attending Unavailable Malys, Naomi Primary Care Unavailable De Jesus CHANNEL WORKER, Cathie Referring Unavailable De Jesus CHANNEL WORKER, Cathie Attending Unavailable Malys, Naomi Referring Unavailable Malys, Naomi Primary Care Unavailable De Jesus CHANNEL WORKER, Cathie Attending Unavailable Malys, Naomi Referring Unavailable Malys, Naomi Primary Care Unavailable De Jesus CHANNEL WORKER, Cathie Attending Unavailable Vaibhav Cardenas Attending Unavailable Malys, Naomi Primary Care Unavailable eller, Amandeep Consulting Unavailable eller, Amandeep Admitting Unavailable Kitgarethe, Vaibhav Consulting Unavailable Malys, Naomi Primary Care Unavailable De Jesus CHANNEL WORKER, Cathie Referring Unavailable De Jesus CHANNEL WORKER, Cathie Attending Unavailable Malys, Naomi Primary Care Unavailable De Jesus CHANNEL WORKER, Cathie Referring Unavailable De Jesus CHANNEL WORKER, Cathie Attending Unavailable Malys, Naomi Attending Unavailable Malys, Naomi Referring Unavailable Malys, Naomi Primary Care Unavailable Malys, Naomi Primary Care Unavailable De Jesus CHANNEL WORKER, Cathie Attending Unavailable De Jesus CHANNEL WORKER, Cathie Referring Unavailable De Jesus CHANNEL WORKER, Cathie Referring Unavailable Malys, Naomi Primary Care Unavailable De Jesus CHANNEL WORKER, Cathie Attending Unavailable De Jesus CHANNEL WORKER, Cathie Referring Unavailable Malys, Naomi Primary Care Unavailable De Jesus CHANNEL WORKER, Cathie Attending Unavailable Amandeep Montalvo Attending Unavailable Mary Villasenor Attending Unavailable Malys, Naomi Primary Care Unavailable Angel Patel Consulting Unavailable Angel Patel Referring Unavailable De Jesus CHANNEL WORKER, Cathie Referring Unavailable Malys, Naomi Primary Care Unavailable De Jesus CHANNEL WORKER, Cathie Attending Unavailable De Jesus CHANNEL WORKER, Cathie Referring Unavailable Malys, Naomi Primary Care Unavailable De Jesus CHANNEL WORKER, Cathie Attending Unavailable Malys, Naomi Primary Care Unavailable Angel Patel Attending Unavailable Agnel Patel Referring Unavailable Pato Naomi Primary Care Unavailable Neal CHANNEL WORKER, Cathie Referring Unavailable Neal CHANNEL WORKER, Cathie Attending Unavailable YfnbayronNaomi Primary Care Unavailable Leobardo Harrington Attending Unavailable YfnbayronNaomi Primary Care Unavailable Neal CHANNEL WORKER, Cathie Referring Unavailable Neal CHANNEL WORKER, Cathie Attending Unavailable Allergies Allergy Classification Reported Allergen(s) Allergy Type Date of Onset Reaction(s) Facility (14 sources) codeine drug allergy 6 vomitting and itching [facility] Work Phone: (14 sources) morphine drug allergy 6 swellling, turns red [facility] Work Phone: (20 sources) Codeine Drug Allergy 2 Itching [facility] (20 sources) Doxycycline Drug Allergy 2 severe headaches and muscle spasms to the chest [facility] (20 sources) Morphine Drug Allergy 2 Itching [facility] (1 source) Codeine Drug Allergy 5 [facility] (1 source) Doxycycline Drug Allergy 5 [facility] (1 source) Morphine Drug Allergy 5 [facility] Medications Current Medications Medication [...] 2020 12:03pm expires 11/23/2025 168 hr estradiol 0.08545 mg/ hr transdermal system (15 sources) Estrogen Start: 04-20-2023 Start: 04-20-2023 apply 1 dose transde rmal route every week Estradiol Active 1 PATCH TD EVERY WEEK April 20, 2023 1:00am Uyxnmlkqras-Otucliizm-Vuguda er (20 sources) Anticholinergic, Corticosteroid, beta2-Adrenergic Agonist Start: 01-20-2025 Start: 12-25-2024 End: 01-20-2025 Txpricsixum-Ltqabgsju-Ryzljd er (Trelegy Ellipta) 100-62.5-25 mcg blister with device Discontinued 1 NMA INHALATION DAILY 60 December 25, 2024 11:28am January 20, 2025 2:33pm Start: 04-20-2023 End: 12-25-2024 Utpljmeeexe-Puhqvzkyp-Kvympy er (Trelegy Ellipta) 100-62.5-25 mcg blister with [...] 20, 2023 12:00am Start: 08-01-2022 End: 11-02-2022 Jrtjchyrbjj-Yvrnbfkii-Rzdlpn er (Trelegy Ellipta) 100-62.5-25 mcg blister with device Discontinued 1 NMA INHALATION daily 60 August 01, 2022 8:27am November 02, 2022 3:14pm Chronic obstructive pulmonary disease, unspecified administer at approximately the same time(s) each day Start: 08-01-2022 End: 11-02-2022 Vitfxsdmmws-Kdvpmayhy-Jsmfwi er (Trelegy Ellipta) 100-62.5-25 mcg blister with device Discontinued 1 NMA INHALATION daily 60 August 01, 2022 8:27am November 02, 2022 3:14pm administer at approximately the same time(s) each day Start: 08-01-2022 End: 11-02-2022 Mmtuvoiiuny-Dqnlahznj-Gnjjsi er (Trelegy Ellipta) 100-62.5-25 mcg blister with device Discontinued 1 INH INHALATION daily 60 August 01, 2022 7:27am November 02, 2022 2:14pm administer at approximately the same time(s) each day Start: 08-01-2022 End: 11-02-2022 Ozcshqkwerr-Fpvtwsvfz-Ptiloj er (Trelegy Ellipta) 100-62.5-25 mcg blister with device Discontinued 1 INH INHALATION daily 60 August 01, 2022 8:27am November 02, 2022 3:14pm administer at approximately the same time(s) each day Start: 08-01-2022 Fluticasone-Um eclidin-Vilanter (Trelegy Ellipta) 100-62.5-25 mcg blister with device Active 1 INH INHALATION daily 60 August 01, 2022 8:27am administer at approximately the same time(s) each day Start: 01-30-2022 End: 08-01-2022 Rperctesacj-Uqfbiwroj-Nbdzrs er (Trelegy Ellipta) 100-62.5-25 mcg blister with device Discontinued 1 NMA INHALATION daily 60 January 30, 2022 8:32am August 01, 2022 8:27am Chronic obstructive pulmonary disease, unspecified administer at approximately the same time(s) each day Start: 01-30-2022 End: 08-01-2022 Fhszkxldyxk-Cukxutlup-Aclcaj er (Trelegy Ellipta) 100-62.5-25 mcg blister with device Discontinued 1 NMA INHALATION daily January 30, 2022 8:32am August 01, 2022 8:27am administer at approximately the same time(s) each day Start: 01-30-2022 End: 08-01-2022 Vpnndamqvwy-Bzsnfbzqg-Shmong er (Trelegy Ellipta) 100-62.5-25 mcg blister with device Discontinued 1 INH INHALATION daily 60 January 30, 2022 7:32am August 01, 2022 7:27am administer at approximately the same time(s) each day Start: 01-30-2022 End: 08-01-2022 Pvzidozzyrm-Whjdndapk-Doxihl er (Trelegy Ellipta) 100-62.5-25 mcg blister with [...] time(s) each day Start: 07-07-2021 End: 01-30-2022 Arzxwiazsmq-Tvipkvbdv-Oquzbo er (Trelegy Ellipta) 100-62.5-25 mcg blister with device Discontinued 1 NMA INHALATION daily 60 July 07, 2021 10:35am January 30, 2022 8:32am Chronic obstructive pulmonary disease, unspecified administer at approximately the same time(s) each day Start: 07-07-2021 End: 01-30-2022 Wzuysafsjkq-Wekbngija-Efytat er (Trelegy Ellipta) 100-62.5-25 mcg blister with device Discontinued 1 NMA INHALATION daily July 07, 2021 10:35am January 30, 2022 8:32am administer at approximately the same time(s) each day Start: 07-07-2021 End: 01-30-2022 Rjjlzdcmwbh-Nwbeyuljm-Imqozb er (Trelegy Ellipta) 100-62.5-25 mcg blister with device Discontinued 1 INH INHALATION daily 60 July 07, 2021 10:35am January 30, 2022 8:32am administer at approximately the same time(s) each day Start: 07-07-2021 End: 01-30-2022 Vjeqfobxlhe-Ctfjcqnzg-Urykel er (Trelegy Ellipta) 100-62.5-25 mcg blister with device Discontinued 1 INH INHALATION daily 60 July 07, 2021 9:35am January 30, 2022 7:32am administer at approximately the same time(s) each day Start: 07-07-2021 Fluticasone-Um eclidin-Vilanter (Trelegy Ellipta) 100-62.5-25 mcg blister with device Active 1 INH INHALATION daily 60 July 07, 2021 10:35am administer at approximately the same time(s) each day Start: 01-04-2021 End: 07-07-2021 Netcmrjltvx-Ltciaijqt-Txtvft er (Trelegy Ellipta) 100-62.5-25 mcg blister with device Discontinued 1 NMA INHALATION daily 60 January 04, 2021 11:31am July 07, 2021 10:35am Chronic obstructive pulmonary disease, unspecified administer at approximately the same time(s) each day Start: 01-04-2021 End: 07-07-2021 Qizfhrljtnl-Keyjszisd-Xvmigr er (Trelegy Ellipta) 100-62.5-25 mcg blister with device Discontinued 1 NMA INHALATION daily 60 January 04, 2021 11:31am July 07, 2021 10:35am administer at approximately the same time(s) each day Start: 01-04-2021 End: 07-07-2021 Rjtlwxjqggh-Jsfwgbnvd-Pkoenm er (Trelegy Ellipta) 100-62.5-25 mcg blister with device Discontinued 1 INH INHALATION daily 60 January 04, 2021 10:31am July 07, 2021 9:35am administer at approximately the same time(s) each day Start: 01-04-2021 End: 07-07-2021 Cmydlweivet-Qvlmqrrbx-Frhrmr er (Trelegy Ellipta) 100-62.5-25 mcg blister with device Discontinued 1 INH INHALATION daily 60 January 04, 2021 11:31am July 07, 2021 10:35am administer at approximately the same time(s) each day Start: 10-15-2020 End: 01-04-2021 Atrkrphtzsu-Txkrovysv-Gjgump er (Trelegy Ellipta) 100-62.5-25 mcg blister with device Discontinued 1 NMA INHALATION daily 60 3 October 15, 2020 2:54pm January 04, 2021 11:33am Chronic obstructive pulmonary disease, unspecified administer at approximately the same time(s) each day Start: 10-15-2020 End: 01-04-2021 Uydpnwybmrk-Bfduereiw-Feqbep er (Trelegy Ellipta) 100-62.5-25 mcg blister with device Discontinued 1 NMA INHALATION daily 60 October 15, 2020 2:54pm January 04, 2021 11:33am administer at approximately the same time(s) each day Start: 10-15-2020 End: 01-04-2021 Toqcphhdlpf-Ijahfespy-Phbbum er (Trelegy Ellipta) 100-62.5-25 mcg blister with device Discontinued 1 INH INHALATION daily 60 October 15, 2020 1:54pm January 04, 2021 10:33am administer at approximately the same time(s) each day Start: 10-15-2020 End: 01-04-2021 Aqidzwiryfb-Zojtplfnq-Iaigbj er (Trelegy Ellipta) 100-62.5-25 mcg blister with device Discontinued 1 INH INHALATION daily 60 October 15, 2020 2:54pm January 04, 2021 11:33am administer at approximately the same time(s) each day Start: 10-15-2020 End: 10-15-2020 Mwldaapefje-Pbshxhefv-Ncrlhv er (Trelegy Ellipta) 100-62.5-25 mcg blister with device Discontinued 1 NMA INHALATION daily 60 3 October 15, 2020 2:27pm October 15, 2020 2:54pm Chronic obstructive pulmonary disease, unspecified administer at approximately the same time(s) each day Start: 10-15-2020 End: 10-15-2020 Iipvdezemit-Fdqkunvrx-Qtlcwi er (Trelegy Ellipta) 100-62.5-25 mcg blister with device Discontinued 1 NMA INHALATION daily 60 October 15, 2020 2:27pm October 15, 2020 2:54pm administer at approximately the same time(s) each day Start: 10-15-2020 End: 10-15-2020 Kkhvtrwkvai-Gukqwhbkn-Zmqoqo er (Trelegy Ellipta) 100-62.5-25 mcg blister with device Discontinued 1 INH INHALATION daily 60 October 15, 2020 1:27pm October 15, 2020 1:54pm administer at approximately the same time(s) each day Start: 10-15-2020 End: 10-15-2020 Zxjufqutwuq-Dfebmvcch-Ghffse er (Trelegy Ellipta) 100-62.5-25 mcg blister with device Discontinued 1 INH INHALATION daily 60 October 15, 2020 2:27pm October 15, 2020 2:54pm administer at approximately the same time(s) each day Start: 02-16-2020 End: 05-18-2020 Ekkvdrfuctd-Smrchcybf-Lfdwnk er (Trelegy Ellipta) 100-62.5-25 mcg blister with device Discontinued 1 INH INHALATION daily February 16, 2020 4:13pm May 18, 2020 11:44am administer at approximately the same time(s) each day Start: 02-16-2020 End: 05-18-2020 Skzvvkhjans-Gigkouabo-Awsolo er (Trelegy Ellipta) 100-62.5-25 mcg blister with device Discontinued 1 NMA INHALATION daily 60 February 16, 2020 1:00am May 18, 2020 11:44am Chronic obstructive pulmonary disease, unspecified administer at approximately the same time(s) each day Start: 02-16-2020 End: 05-18-2020 Ivfbvnyltoq-Jwgrnlpuv-Dxrpou er (Trelegy Ellipta) 100-62.5-25 mcg blister with device Discontinued 1 NMA INHALATION daily 60 February 16, 2020 1:00am May 18, 2020 11:44am administer at approximately the same time(s) each day Start: 02-16-2020 End: 05-18-2020 Aizopynphex-Erbptyqji-Qywklz er (Trelegy Ellipta) 100-62.5-25 mcg blister with device Discontinued 1 INH INHALATION daily February 16, 2020 12:00am May 18, 2020 10:44am administer at approximately the same time(s) each day Start: 02-16-2020 End: 05-18-2020 Ixarwnentix-Ckfuorrdx-Xptglq er (Trelegy Ellipta) 100-62.5-25 mcg blister with device Discontinued 1 INH INHALATION daily February 16, 2020 1:00am May 18, 2020 11:44am administer at approximately the same time(s) each day Start: 10-31-2019 End: 01-23-2020 Gemzrtvdynq-Xheuijoqz-Qvyxao er (Trelegy Ellipta) 100-62.5-25 mcg blister with device Discontinued 1 NMA INHALATION DAILY 1 October 31, 2019 2:30pm January 23, 2020 2:32pm Start: 10-31-2019 End: 01-23-2020 Fvkmlauusev-Pdyvzonpv-Dfwsze er (Trelegy Ellipta) 100-62.5-25 mcg blister with device Discontinued 1 NMA INHALATION DAILY October 31, 2019 2:30pm January 23, 2020 2:32pm Start: 10-31-2019 End: 01-23-2020 Ndafsbsxrbz-Fwygjzqvr-Wrltqt er (Trelegy Ellipta) 100-62.5-25 mcg blister with device Discontinued 1 INH INHALATION DAILY October 31, 2019 1:30pm January 23, 2020 1:32pm Start: 10-31-2019 End: 01-23-2020 Btwkueknkhe-Utourxjrz-Egmwew er (Trelegy Ellipta) 100-62.5-25 mcg blister with device Discontinued 1 INH INHALATION DAILY October 31, 2019 2:30pm January 23, 2020 2:32pm Start: 10-03-2018 End: 10-31-2019 Ddohetmsbtl-Juucwmmgz-Rxejlb er (Trelegy Ellipta) 100-62.5-25 mcg blister with device Discontinued 1 NMA INHALATION DAILY 1 6 October 03, 2018 12:00am October 31, 2019 2:31pm Start: 10-03-2018 End: 10-31-2019 Hpkqmtegjlr-Eloxyoxxp-Vvjmqr er (Trelegy Ellipta) 100-62.5-25 mcg blister with device Discontinued 1 INH INHALATION DAILY 1 October 03, 2018 12:00am October 31, 2019 2:31pm Start: 09-25-2018 End: 10-03-2018 Jpaiaoqptpz-Ccjrkqarx-Gjvrzg er (Trelegy Ellipta) 100-62.5-25 mcg blister with device Discontinued 1 NMA INHALATION DAILY 60 September 25, 2018 12:40pm October 03, 2018 1:40pm Start: 09-25-2018 End: 10-03-2018 Jaeqayfkzwy-Nbfjqhqds-Fhuphm er (Trelegy Ellipta) 100-62.5-25 mcg blister with device Discontinued 1 NMA INHALATION DAILY 60 September 25, 2018 12:40pm October 03, 2018 1:40pm Start: 09-25-2018 End: 10-03-2018 Vzdvnzhckzw-Froyaesxq-Qynbtg er (Trelegy Ellipta) 100-62.5-25 mcg blister with device Discontinued 1 INH INHALATION DAILY 60 September 25, 2018 11:40am October 03, 2018 12:40pm Start: 09-25-2018 End: 10-03-2018 Oifolfppnvm-Etaqwooik-Tytmwo er (Trelegy Ellipta) 100-62.5-25 mcg blister with device Discontinued 1 INH INHALATION DAILY 60 September 25, 2018 12:40pm October 03, 2018 1:40pm Start: 08-06-2018 End: 09-25-2018 Smfdmejcyqv-Hbctacgiz-Yllnbw er (Trelegy Ellipta) 100-62.5-25 mcg blister with device Discontinued 1 NMA INHALATION DAILY 28 August 06, 2018 12:00am September 25, 2018 12:41pm Start: 08-06-2018 End: 09-25-2018 Izyxtfbkttx-Mswipvnmf-Plijej er (Trelegy Ellipta) 100-62.5-25 mcg blister with [...] 12:00am February 25, 2018 12:52pm As directed OEBFXBV-ZCQDVP-HHDUJ PERTUSSIS (2 sources) Inactivated Corynebacterium Diphtheriae Vaccine, Inactivated Clostridium Tetani Vaccine Start: 11-22-2015 End: 01-03-2016 ADACEL 5-2-15.5 LF-MCG/0.5 SUSP [place] 1 dose PLGPXCJ-XIDBWU-HPHES PERTUSSIS [id number] Kristen Marie AGRICULTURAL EQUIPMENT SALES ENGINEER Start: 11-22-2015 ADACEL 5-2-15. 5 LF-MCG/0.5 SUSP [place] 1 dose SCZNEQD-ISWELI-IJWBY PERTUSSIS [id number] Brisa Ball AGRICULTURAL EQUIPMENT SALES ENGINEER [id number] 200 actuat albuterol 0.09 mg/actuat metered dose [...] INH every 4 hours PRN ALBUTEROL SULFATE [id number] Anthony Jalloh DO Start: 12-02-2015 take 108 ug by inhal ation every four hours as needed PROAIR HFA 108 (90 Base) MCG/ACT AERS INH every 4 hours PRN ALBUTEROL SULFATE [id number] Anthony Jalloh DO Start: 10-23-2015 End: 11-06-2024 [...] INH 1 ampule q4h as needed IPRATROPIUM-ALBUTEROL [id number] Leilani Baron AGRICULTURAL EQUIPMENT SALES ENGINEER amoxicillin 875 mg / clavulanate 125 mg [...] One tablet by mouth daily ASPIRIN TBEC [id number] Khai Birmingham MD ASPIRIN TBEC (1 source) Start: 12-30-2015 take 1 tablet by mouth once daily ASPIR-81 TBEC One tablet by mouth daily ASPIRIN TBEC [id number] Khai Birmingham MD atorvastatin 80 mg oral [...] by mouth daily at bedtime ATORVASTATIN CALCIUM [id number] Brisa Ball LPN azithromycin 250 mg oral [...] 1:00am July 03, 2018 5:06pm Flucelvax Quad [phone] (PF) (flu vac qs 2017(4 yr up)CD(PF)) [...] MCG/INH AEPB 1 puff daily FLUTICASONE FUROATE-VILANTEROL [id number] Anthony Jalloh DO Start: 11-22-2015 BREO ELLIPTA 2 00-25 MCG/INH AEPB 1 INH one time per kimberly FLUTICASONE FUROATE-VILANTEROL [id number] Brisa Ball LPN Start: 11-22-2015 take 1 puff(s) by in halation once daily BREO ELLIPTA 200-25 MCG/INH AEPB 1 puff daily FLUTICASONE FUROATE-VILANTEROL [id number] Anthony Jalloh DO Start: 11-22-2015 take 1 puff(s) by in halation once daily BREO ELLIPTA 200-25 MCG/INH AEPB 1 puff daily FLUTICASONE FUROATE-VILANTEROL [id number] Anthony Jalloh DO Start: 11-22-2015 take 200-25 ug by in halation once BREO ELLIPTA 200-25 MCG/INH AEPB 1 INH one time per kimberly FLUTICASONE FUROATE-VILANTEROL [id number] Brisa Ball LPN fluvoxaMINE maleate 100 mg [...] One tablet by mouth daily FLUVOXAMINE MALEATE [id number] Brisa Ball LPN 120 actuat formoterol fumarate [...] capsule twice a day NITROFURANTOIN MONOHYD MACRO [id number] Catracho POSADA Start: 10-09-2016 End: 10-16-2016 NITROFURANTOIN MACROCRYSTAL 100 MG CAPS Take 1 capsule every 12 hours NITROFURANTOIN MACROCRYSTAL [id number] Iker POSADA nystatin 444114 unt/ml oral suspension (20 sources) Polyene Antifungal [...] times a day as needed PHENAZOPYRIDINE HCL [id number] Catracho POSADA predniSONE 20 mg oral tablet [...] Administer 1 dose PNEUMOCOCCAL 13-FAVIAN CONJ VACC [id number] Brisa Ball LPN Start: 11-22-2015 End: 01-03-2016 PREVNAR 13 SUSP Administer 1 dose PNEUMOCOCCAL 13-FAVIAN CONJ VACC [id number] Kristen Marie AGRICULTURAL EQUIPMENT SALES ENGINEER sulfamethoxazole 800 mg / trimethoprim 160 mg oral tablet (20 sources) Dihydrofolate Reductase Inhibitor Antibacterial, Sulfonamide Antimicrobial Start: 04-04-2021 End: 07-07-2021 Sulfamethoxazole-Trimethopri m (Bactrim Ds) 800-160 mg tablet Discontinued 1 {tbl} PO TWICE A DAY 6 0 April 04, 2021 1:00am July 07, 2021 10:04am Tiotropium [place] (20 sources) Anticholinergic Start: 05-18-2020 End: 07-02-2020 take 1 puff(s) by inhalation once daily Tiotropium [place] (Spiriva Respimat) 2.5 mcg/actuation mist Discontinued 2 PUFF INHALATION daily May 18, 2020 12:05pm July 02, 2020 10:58am Start: 05-18-2020 End: 07-02-2020 take 2.5 ug by inhalation once daily Tiotropium [place] (Spiriva Respimat) 2.5 mcg/actuation mist Discontinued 2 NMA INHALATION daily 07 13May 18, 2020 1:00am July 02, 2020 10:58am Start: 05-18-2020 End: 07-02-2020 take 2.5 ug by inhalation once daily Tiotropium [place] (Spiriva Respimat) 2.5 mcg/actuation mist Discontinued 2 NMA INHALATION daily May 18, 2020 1:00am July 02, 2020 10:58am Start: 05-18-2020 End: 07-02-2020 take 1 puff(s) by inhalation once daily Tiotropium [place] (Spiriva Respimat) 2.5 mcg/actuation mist Discontinued 2 PUFF INHALATION daily May 18, 2020 12:00am July 02, 2020 9:58am Start: 05-18-2020 End: 07-02-2020 take 1 puff(s) by inhalation once daily Tiotropium [place] (Spiriva Respimat) 2.5 mcg/actuation mist Discontinued 2 PUFF INHALATION daily May 18, 2020 1:00am July 02, 2020 10:58am Start: 02-25-2018 End: 08-06-2018 Tiotropium [place] 18 mcg ca psule, w/inhalation device Discontinued 1 NMA INHALATION DAILY February 25, 2018 1:00am August 06, 2018 11:49am Start: 12-02-2015 take 1 puff(s) by in halation once daily SPIRIVA HANDIHALER 18 MCG CAPS INH 1 puff daily TIOTROPIUM BROMIDE MONOHYDRATE [id number] Kristenadelfo Acunajevon Marie LPN Start: 12-02-2015 take 1 capsule by in halation once daily SPIRIVA HANDIHALER 18 MCG CAPS INH one time per day TIOTROPIUM BROMIDE MONOHYDRATE 87461873572 Brisa Ball LPN Start: 12-02-2015 SPIRIVA HANDIH ALER 18 MCG CAPS 2 puffs daily TIOTROPIUM BROMIDE MONOHYDRATE [id number] Anthony Jalloh DO Start: 12-02-2015 take 1 puff(s) by in halation once daily SPIRIVA HANDIHALER 18 MCG CAPS INH 1 puff daily TIOTROPIUM BROMIDE MONOHYDRATE [id number] Kristen Marie LPN Start: 12-02-2015 take 1 capsule by in halation once daily SPIRIVA HANDIHALER 18 MCG CAPS INH one time per day TIOTROPIUM BROMIDE MONOHYDRATE 02265220933 Brisa Ball LPN Start: 12-02-2015 SPIRIVA HANDIH ALER 18 MCG CAPS 2 puffs daily TIOTROPIUM BROMIDE MONOHYDRATE 90389009670 Anthony Jalloh DO Start: 12-02-2015 SPIRIVA HANDIH ALER 18 MCG CAPS 2 puffs daily TIOTROPIUM BROMIDE MONOHYDRATE 68066371500 Anthony Jalloh DO Start: 10-23-2015 End: 08-06-2017 Tiotropium Murphys 1 PUFF in haler Discontinued 1 NMA INHALATION DAILY October 23, 2015 12:00am August 06, 2017 11:13am Start: 10-23-2015 End: 08-06-2017 take 1 puff(s) by inhalation once daily Tiotropium Murphys Discontinued 1 PUFF INHALATION DAILY October 23, [...] VACCINE LIVE (2 sources) Start: 11-22-2015 ZOSTAVAX 85601 UNT/0.65ML SUSR Adminiser 1 dose ZOSTER VACCINE LIVE [id number] Brisa Ball LPN Start: 11-22-2015 End: 01-03-2016 ZOSTAVAX 58655 UNT/0.65ML LONG SR Adminiser 1 dose ZOSTER VACCINE LIVE [id number] Kristen Marie LPN venlafaxine 75 mg oral [...] One tablet by mouth daily VENLAFAXINE HCL [id number] Leilani Baron AGRICULTURAL EQUIPMENT SALES ENGINEER Problems Active Problems Problem Classification Problem Date [...] Coronary arteriosclerosis; Translations: [Atherosclerotic heart disease of [place] coronary artery without angina pectoris] Onset: 12-30-2015 [...] sites No growth in 5 days. Normal [facility] Comment on above: Performed By: #### M 200.1000, L503.6005, L503.7505, L501.4021 ####[facility] [address] [place], [address] Basic Metabolic Profile (BMP )on 02-05-2025 BUN/CRE 10.4 RATIO Normal 01-26 [facility] Comment on above: Performed By: #### L 100.0500, L500.2500 #### [facility] Laboratory [address] [place], [address] Calcium [Mass/Vol] 9.1 mg/dL Normal 7.6-11.0 [facility] Comment on above: Performed By: #### L 100.0500, L500.2500 #### [facility] [address] [place], [address] Chloride [Moles/Vol] 107 mmol/L Normal 98-108 [facility] Comment on above: Performed By: #### L 100.0500, L500.2500 #### [facility] [address] [place], [address] CO2 [Moles/Vol] 18.7 mmol/L Low 21.0-32.0 [facility] Comment on above: Performed By: #### L 100.0500, L500.2500 #### [facility] [address] [place], [address] Creatinine [Mass/Vol] 0.74 mg/dL Normal 0.70-1.20 [facility] Comment on above: Performed By: #### L 100.0500, L500.2500 #### [facility] [address] [place], [address] ECRCL 70.16 ml/min Normal 50-250 [facility] Comment on above: Performed By: #### L 100.0500, L500.2500 #### [facility] [address] [place], [address] GAP 13 Normal 5-15 [facility] Comment on above: Performed By: #### L 100.0500, L500.2500 #### [facility] [address] [place], [address] GFR/1.73 sq M.predicted among non-blacks MDRD (S/P/Bld) [Vol rate/Area] 87 mL/min/{1.73_m2} Normal >60 [facility] Comment on above: Result Comment: mL/m in/1.73m2 CKD-EPI Creatinine Equation (2020) Performed By: #### L 100.0500, L500.2500 #### [facility] [address] [place], [address] Glucose [Mass/Vol] 183 mg/dL High 70-99 [facility] Comment on above: Performed By: #### L 100.0500, L500.2500 #### [facility] [address] [place], [address] Potassium [Moles/Vol] 3.9 mmol/L Normal 3.3-5.1 [facility] Comment on above: Performed By: #### L 100.0500, L500.2500 #### [facility] [address] [place], [address] Sodium [Moles/Vol] 138 mmol/L Normal 133-145 [facility] Comment on above: Performed By: #### L 100.0500, L500.2500 #### [facility] [address] [place], [address] Urea nitrogen [Mass/Vol] 8 mg/dL Normal 4-19 [facility] Comment on above: Performed By: #### L 100.0500, L500.2500 #### [facility] [address] [place], [address] CBC-Complete Blood Cnt No Di ffon 02-05-2025 Erythrocyte distribution width (RBC) [Ratio] 13.4 % Normal 11.6-14.6 [facility] Comment on above: Performed By: #### L 100.0500, L500.2500 #### [facility] [address] [place], [address] Hematocrit (Bld) [Volume fraction] 38.9 % Normal 37-47 [facility] Comment on above: Performed By: #### L 100.0500, L500.2500 #### [facility] [address] [place], [address] Hemoglobin (Bld) [Mass/Vol] 13.0 g/dL Normal 12.0-15.0 [facility] Comment on above: Performed By: #### L 100.0500, L500.2500 #### [facility] [address] [place], [address] MCH (RBC) [Entitic mass] 28.6 pg Normal 27.0-32.0 [facility] Comment on above: Performed By: #### L 100.0500, L500.2500 #### [facility] [address] [place], [address] MCHC (RBC) [Mass/Vol] 33.4 g/dL Normal 32-36 [facility] Comment on above: Performed By: #### L 100.0500, L500.2500 #### [facility] [address] [place], [address] MCV (RBC) [Entitic vol] 85.5 fL Normal 81-99 [facility] Comment on above: Performed By: #### L 100.0500, L500.2500 #### [facility] [address] [place], [address] Platelet mean volume (Bld) [Entitic vol] 9.5 fL Normal 6.2-12.0 [facility] Comment on above: Performed By: #### L 100.0500, L500.2500 #### [facility] [address] [place], [address] Platelets (Bld) [#/Vol] 362 10*3/uL Normal 150-450 [facility] Comment on above: Performed By: #### L 100.0500, L500.2500 #### [facility] [address] [place], [address] RBC (Bld) [#/Vol] 4.55 10*6/uL Normal 4.2-5.4 [facility] Comment on above: Performed By: #### L 100.0500, L500.2500 #### [facility] [address] [place], [address] RDW SD 42.1 fl Normal 35.1-43.9 [facility] Comment on above: Performed By: #### L 100.0500, L500.2500 #### [facility] [address] [place], [address] WBC (Bld) [#/Vol] 3.4 10*3/uL Low 4.4-11.0 [facility] Comment on above: Performed By: #### L 100.0500, L500.2500 #### [facility] [address] [place], [address] 12 Lead EKGon 02-04-2025 12 Lead EKG [facility] Cardiovascular Services [address] [place] [address] 12 Lead EKG 02/04/25 1305 MR#: [id number] Acct: [id number] Name: TARSHA GONZALEZ Rep #: [id number] : 1955 70 From: Woody Panda MD Attending Dr: Dr. Vaibhav Cardenas MD Status: DIS IN Ordering Dr: Inocencia Cross DO Date: 02/04/25 Location: [facility] Sex: F C Admitted: 02/04/25 Test Reason : Blood Pressure : */* mmHG Vent. Rate : 105 BPM Atrial Rate : 105 BPM P-R Int : 140 ms QRS Dur : 72 ms QT Int : 336 ms P-R-T Axes : 75 77 59 degrees QTcB Int : 444 ms Sinus tachycardia Nonspecific ST abnormality Abnormal ECG Confirmed by NICOLA MENEDZ, WOODY ([id number]), supervising film or videotape editor PHAM MOTLEY ([id number]) on 02/06/2025 7:11:24 AM Referred By: RU Confirmed By: WOODY APNDA MD 02/06/25 0711 Date Woody Panda MD CC: Dr. Vaibhav Cardenas MD; Dr. Naomi Whyte DO; Dr. Inocencia Cross DO Signed Normal [facility] Basic Metabolic Profile (BMP )on 02-04-2025 BUN/CRE 6.6 RATIO Low 10-20 [facility] Comment on above: Performed By: #### L 500.2500, L100.0100 ####[facility] [address] [place], [address] Calcium [Mass/Vol] 9.6 mg/dL Normal 7.6-11.0 [facility] Comment on above: Performed By: #### L 500.2500, L100.0100 ####[facility] [address] [place], [address] Chloride [Moles/Vol] 105 mmol/L Normal 98-108 [facility] Comment on above: Performed By: #### L 500.2500, L100.0100 ####[facility] [address] [place], [address] CO2 [Moles/Vol] 18.9 mmol/L Low 21.0-32.0 [facility] Comment on above: Performed By: #### L 500.2500, L100.0100 ####[facility] [address] [place], [address] Creatinine [Mass/Vol] 0.81 mg/dL Normal 0.70-1.20 [facility] Comment on above: Performed By: #### L 500.2500, L100.0100 ####[facility] [address] [place], [address] ECRCL 67.74 ml/min Normal 50-250 [facility] Comment on above: Performed By: #### L 500.2500, L100.0100 ####[facility] [address] [place], [address] GAP 16 High 5-15 [facility] Comment on above: Performed By: #### L 500.2500, L100.0100 ####[facility] [address] [place], [address] GFR/1.73 sq M.predicted among non-blacks MDRD (S/P/Bld) [Vol rate/Area] 78 mL/min/{1.73_m2} Normal >60 [facility] Comment on above: Result Comment: mL/m in/1.73m2 CKD-EPI Creatinine Equation (2020) Performed By: #### L 500.2500, L100.0100 ####[facility] [address] [place], [address] Glucose [Mass/Vol] 121 mg/dL High 70-99 [facility] Comment on above: Performed By: #### L 500.2500, L100.0100 ####[facility] [address] [place], [address] Potassium [Moles/Vol] 3.6 mmol/L Normal 3.3-5.1 [facility] Comment on above: Performed By: #### L 500.2500, L100.0100 ####[facility] [address] [place], [address] Sodium [Moles/Vol] 139 mmol/L Normal 133-145 [facility] Comment on above: Performed By: #### L 500.2500, L100.0100 ####[facility] [address] [place], [address] Urea nitrogen [Mass/Vol] 5 mg/dL Normal 4-19 [facility] Comment on above: Performed By: #### L 500.2500, L100.0100 ####[facility] [address] [place], [address] CBC W/Diff, Automatedon 10-2 -2024 Absolute Lymph 1.38 X10 3/uL Normal 0.83-4.51 [facility] Comment on above: Performed By: #### L 500.2500, L100.0100 ####[facility] [address] [place], [address] Absolute Neut 4.0 X10 3/uL Normal 2.0-7.7 [facility] Comment on above: Performed By: #### L 500.2500, L100.0100 ####[facility] [address] [place], [address] Basophils/100 WBC (Bld) 0.8 % Normal 0-1 [facility] Comment on above: Performed By: #### L 500.2500, L100.0100 ####[facility] [address] [place], [address] Eosinophils/100 WBC (Bld) 1.8 % Normal 0-5 [facility] Comment on above: Performed By: #### L 500.2500, L100.0100 ####[facility] [address] [place], [address] Erythrocyte distribution width (RBC) [Ratio] 13.4 % Normal 11.6-14.6 [facility] Comment on above: Performed By: #### L 500.2500, L100.0100 ####[facility] [address] [place], [address] Hematocrit (Bld) [Volume fraction] 41.2 % Normal 37-47 [facility] Comment on above: Performed By: #### L 500.2500, L100.0100 ####[facility] [address] [place], [address] Hemoglobin (Bld) [Mass/Vol] 14.0 g/dL Normal 12.0-15.0 [facility] Comment on above: Performed By: #### L 500.2500, L100.0100 ####[facility] [address] [place], [address] IG% 0.800 Normal 0.0-0.9 [facility] Comment on above: Result Comment: IG% - Immature Granulocytes (promyelocytes, myelocytes and metamyelocytes) > 1% indicates that a LEFT SHIFT is Present. Performed By: #### L 500.2500, L100.0100 ####[facility] [address] [place], [address] Lymphocytes/100 WBC (Bld) 22.0 % Normal 19-41 [facility] Comment on above: Performed By: #### L 500.2500, L100.0100 ####[facility] [address] [place], [address] MCH (RBC) [Entitic mass] 29.3 pg Normal 27.0-32.0 [facility] Comment on above: Performed By: #### L 500.2500, L100.0100 ####[facility] [address] [place], [address] MCHC (RBC) [Mass/Vol] 34.0 g/dL Normal 32-36 [facility] Comment on above: Performed By: #### L 500.2500, L100.0100 ####[facility] [address] [place], [address] MCV (RBC) [Entitic vol] 86.2 fL Normal 81-99 [facility] Comment on above: Performed By: #### L 500.2500, L100.0100 ####[facility] [address] [place], [address] Monocytes/100 WBC (Bld) 10.8 % High 0-10 [facility] Comment on above: Performed By: #### L 500.2500, L100.0100 ####[facility] [address] [place], [address] Neutrophils/100 WBC (Bld) 63.8 % Normal 47-70 [facility] Comment on above: Performed By: #### L 500.2500, L100.0100 ####[facility] [address] [place], [address] Nucleated RBC (Bld) [#/Vol] 0 10*3/uL Normal 0-5 [facility] Comment on above: Performed By: #### L 500.2500, L100.0100 ####[facility] [address] [place], [address] Platelet mean volume (Bld) [Entitic vol] 9.4 fL Normal 6.2-12.0 [facility] Comment on above: Performed By: #### L 500.2500, L100.0100 ####[facility] [address] [place], [address] Platelets (Bld) [#/Vol] 338 10*3/uL Normal 150-450 [facility] Comment on above: Performed By: #### L 500.2500, L100.0100 ####[facility] [address] [place], [address] RBC (Bld) [#/Vol] 4.78 10*6/uL Normal 4.2-5.4 [facility] Comment on above: Performed By: #### L 500.2500, L100.0100 ####[facility] [address] [place], [address] RDW SD 42.0 fl Normal 35.1-43.9 [facility] Comment on above: Performed By: #### L 500.2500, L100.0100 ####[facility] [address] [place], [address] WBC (Bld) [#/Vol] 6.3 10*3/uL Normal 4.4-11.0 [facility] Comment on above: Performed By: #### L 500.2500, L100.0100 ####[facility] [address] [place], [address] CTA Chest W/WO Contraston CTA Chest W/WO Contrast [facility] Imaging Services [address] [place] [address] CTA Chest W/WO Contrast MR#: [id number] Acct: [id number] Name: LISATARSHA DOMINGA Rep #: [id number] : 1955 F 70 From: Chadd Santos MD PCP: Dr. Naomi Whyte DO Status: ADM IN Study: CTA Chest W/WO Contrast Date of Exam: 02/04/25 Exam# [id number] Ordering Dr: Inocencia Cross DO PROCEDURE: CTA [...] airspace consolidation/edema or pleural effusion. Reading Location: [facility] CC: Dr. Naomi Whyte DO; Dr. Inocencia Cross DO Professional Wrestler: Signed Normal [facility] Chest 1 View (Portable)on Chest 1 View (Portable) [facility] Imaging Services [address] [place] [address] Chest 1 View (Portable) MR#: [id number] Acct: [id number] Name: TARSHA GONZALEZ Rep #: [id number] : 1955 F 70 From: Jason lauren MD PCP: Dr. Naomi Whyte DO Status: REG ER Study: Chest 1 View (Portable) Date of Exam: 02/04/25 Exam# [id number] Ordering Dr: Inocencia Cross DO PROCEDURE: CHEST 1 VIEW (PORTABLE) 02/04/2025 REASON FOR EXAM: DYSPNEA TECHNIQUE: Frontal view of the chest. COMPARISON: December 24, 2024. FINDINGS: Hardware: EKG electrodes are seen. Heart: Cardiac and mediastinal contours are stable. Lungs: The lungs are clear. Bones: Degenerative changes are identified within the thoracic spine. RAD/Chest 1 View (Portable) IMPRESSION: No Acute Findings. Reading Location: [id number] CC: Dr. Naomi Whyte DO; Dr. Inocencia Cross DO Professional Wrestler: Signed Normal [facility] Emergency Department Summary on 02-04-2025 Emergency Department Summary [facility] Medical Records Department [address] [place] [address] Emergency Department Summary 02/04/25 MR#: [id number] Acct: [id number] Name: TARSHA GONZALEZ Rep #: [id number] : 1955 70 From: Inocencia Cross DO PCP: Dr. Naomi Whyte DO Status:ADM IN Location: [place] [address] HPI History of Present Illness Chief Complaint: [...] surgery. No history of PE or DVT. [facility] Medical History (Updated 02/04/25 @ 15:[address] Inocencia Cross DO) Depression Anxiety Former smoker Asthma Glaucoma Macular degeneration of both eyes Social anxiety disorder Sense of smell altered Urinary tract infection with hematuria COVID-19 COPD (chronic obstructive pulmonary disease) TORREZ (dyspnea on exertion) PHILIP (obstructive sleep apnea) Nicotine dependence in remission Obesity Atherosclerotic heart disease of [place] coronary artery without angina pectoris Cardiac murmur, [...] polyuria Bernabe (more content not included)... Normal [facility] H AND P Exam - Hospitaliston 02-04-2025 H&P Exam - Hospitalist [facility] Medical Records Department [address] [place] [address] H P Exam - Hospitalist 02/04/25 1508 MR#: [id number] Acct: [id number] Name: TARSHA GONZALEZ DOMINGA Rep #: [id number] : 1955 70 From: Amandeep Montalvo DO PCP: Dr. Naomi Whyte DO Status:ADM IN Location: [facility] [id number] HPI - General General Date of Admission: 02/04/25 Date of Service: 02/04/25 Chief Complaint: Shortness of breath HPI Narrative TARSHA GONZALEZ, is a 70 F who presented to [facility] ED on 02/04/2025 with worsening [...] concerns. Will be admitted for further management. [facility] Medical History (Updated 02/04/25 @ 15:[address] Inocencia Cross, DO) Depression Anxiety Former smoker Asthma Glaucoma Macular degeneration of both eyes Social anxiety disorder Sense of smell altered Urinary tract infection with hematuria COVID-19 COPD (chronic obstructive pulmonary disease) TORREZ (dyspnea on exertion) PHILIP (obstructive sleep apnea) Nicotine dependence in remission Obesity Atherosclerotic heart disease of [place] coronary artery without angina pectoris Cardiac murmur, [...] cough Gastrointes (more content not included)... Normal [facility] L501.4021on 02-04-2025 Trop T High Sen 8 ng/L Normal <=14 [facility] Comment on above: Performed By: #### M 200.1000, L503.6005, L503.7505, L501.4021 ####[facility] [address] [place], [address] L509.7001on 02-04-2025 Procalcitonin 0.05 ng/mL Normal <=0.10 [facility] Comment on above: Order Comment: [...] the patient. Performed By: #### L 509.7001 ####[facility] [address] [place], [address] Lactic Acidon 02-04-2025 Lactate [Moles/Vol] 1.5 mmol/L Normal 0.0-2.0 [facility] Comment on above: Order Comment: Y Performed By: #### M 200.1000, L503.6005, L503.7505, L501.4021 ####[facility] [address] [place], [address] M100.678on 02-04-2025 M100.678 Pending SARS-CoV-2 (COVID 19) Negative INFLUENZA A Negative INFLUENZA B Negative RSV PCR Negative Normal [facility] Comment on above: Performed By: #### M 100.678 #### [facility] Laboratory [address] [place], [address] Pro- Brain NATRIURETIC PEPTI Emmy 02-04-2025 Natriuretic peptide B (Bld) [Mass/Vol] 57 pg/mL Normal <=900 [facility] Comment on above: Result Comment: Hear t Failure Unlikely: < 300 pg/mL Heart Failure Likely < 50 Years: > 450 pg/mL 50-75 Years: > 900 pg/mL >75 Years: > 1800 pg/mL Performed By: #### M 200.1000, L503.6005, L503.7505, L501.4021 ####[facility] [address] [place], [address] RESPIRATORY PANEL MOLECULARo n 02-04-2025 RP PANEL ADENOVIRUS Not Detected INFLUENZA A Not Detected INFLUENZA A (SUBTYPE H1) Not Detected INFLUENZA A (SUBTYPE H3) Not Detected INFLUENZA B Not Detected HUMAN METAPHNEUMO Not Detected PARAINFLUENZA 1 Not Detected PARAINFLUENZA 2 Not Detected PARAINFLUENZA 3 Not Detected PARAINFLUENZA 4 Not Detected RHINOVIRUS Not Detected RSV A Not Detected RSV B Not Detected Normal [facility] Comment on above: Performed By: #### M 100.678 #### [facility] Laboratory [address] [place] [place], [address] Troponin T HS 2 HRon 02-04-2 025 Trop T High Sen 8 ng/L Normal <=14 [facility] Comment on above: Performed By: #### L 499.0042 ####[facility] [address] [place], [address] Troponin T HS 4 HRon 02-04-2 025 Trop T High Sen 14 ng/L Normal <=14 [facility] Comment on above: Performed By: #### L 499.0043 ####[facility] [address] [facility] [place], [address] PET/CT Tumor Base -Thigh Ini ton 02-03-2025 PET/CT Tumor Base -Thigh Init [facility] Imaging Services [address] [place] [address] PET/CT Tumor Base -Thigh Init MR#: [id number] Acct: [id number] Name: TARSHA GONZALEZ Rep #: [id number] : 1955 F 70 From: Vaibhav Briggs PCP: Dr. Naomi Whyte, DO Status: REG CLI Study: PET/CT Tumor Base -Thigh Init Date of Exam: Exam# [id number] Ordering Dr: Cathie De Jesus CHANNEL WORKER CHANNEL WORKER-C PROCEDURE: PET/CT TUMOR BASE -THIGH INIT 02/03/2025 [...] PET will be reported separately. Reading Location: [place] [address] CC: CHANNEL WORKERFroylan De Jesus; Dr. Naomi Whyte DO Professional Wrestler: Signed Normal [facility] Abdomen Single Viewon 2024 Abdomen Single View [facility] [facility] Imaging Services [address] [place] [address] Abdomen Single View MR#: [id number] Acct: [id number] Name: TARSHA GONZALEZ Rep #: [id number] : 1955 F 70 From: Vaibhav Briggs PCP: Dr. Naomi Whyte DO Status: REG CLI Study: Abdomen Single View Date of Exam: 02/02/25 Exam# [id number] Ordering Dr: Naomi Whyte DO PROCEDURE: ABDOMEN SINGLE VIEW 02/02/2025 REASON FOR EXAM: KUB- ABDOMINAL PAIN TECHNIQUE: Procedure Code: RADABD Modality: DX Procedure: Two-view supine abdomen COMPARISON: None. RAD/Abdomen Single View IMPRESSION: The bowel-gas pattern is unremarkable. No mass or mass effect is seen. [id number] degenerative changes of the visualized spine are seen. Minimal sacroiliac joint degenerative changes are noted. Although limited by overlying stool, no urinary tract calculus is appreciated. Reading Location: [place] [address] CC: Dr. Naomi Whyte DO Professional Wrestler: Signed Normal [facility] Pulmonary Visit Reporton Pulmonary Visit Report [facility] Pulmonary Medicine [address] [place] [address] OFFICE VISIT Date of Service: 01/20/25 MR#: [id number] Acct: [id number] Name: TARSHA GONZALEZ Rep #: [id number] : 1955 Provider: NELI De Jesus Age/Sex: 69/F Location: [facility] Status: Signed Assessment and Plan Assessment [...] Additional Comments: This note was generated with [employer] dictation software. It may contain incorrect words, [...] injections. S (more content not included)... Normal [facility] Low Dose CT Lung Screeningon 01-19-[address] Lung Screening [facility] Imaging Services [address] [place] [address] Lung Screening MR#: [id number] Acct: [id number] Name: TARSHA GONZALEZ DOMINGA Rep #: [id number] : 1955 F 69 From: Darrell Osborn MD PCP: Dr. Naomi Whyte, DO Status: REG CL Study: Low Dose CT Lung Screening Date of Exam: 01/19 Exam# [id number] Ordering Dr: Cathie De Jesus CHANNEL WORKER CHANNEL WORKER-C PROCEDURE: LOW DOSE CT LUNG SCREENING 01/19/2025 REASON FOR EXAM: SMOKER TECHNIQUE: Procedure Code: CTLUNGSCREEN Modality: CT Procedure: LOW DOSE CT LUNG SCREENING Coronal and Sagittal reconstruction series were provided. One or more dose reduction techniques were used (e.g., Automated exposure control, adjustment of the mA and/or kV according to patient size, use of iterative reconstruction technique). REFERENCE LINK: [employer] Lung-RADS RADIATION DOSE SUMMARY: CTDlvol: 3.18 mGy [...] low-dose chest CT in six-months. Reading Location: [place] [address] CC: CHANNEL WORKERFroylan De Jesus; Dr. Naomi Whyte DO Professional Wrestler: Signed Normal [facility] 12 Lead EKGon 12-24-2024 12 Lead EKG [facility] Cardiovascular Services [address] [place] [address] 12 Lead EKG 12/24/245 MR#: [id number] Acct: [id number] Name: TARSHA GONZALEZ DOMINGA Rep #: [id number] : 1955 69 From: Woody Panda MD [...] Abnormal ECG Confirmed by WOODY PANDA MD ([id number]), supervising film or videotape editor JOAQUÍN HOLLEY ([id number]) on 12/26/2024 10:40:27 AM Referred By: AK Confirmed By: WOODY PANDA MD 12/26/24 1040 Date Woody Panda MD CC: Dr. Naomi Whyte DO; Dr. Leobardo Harrington MD Signed Normal [facility] Absolute lymphocyte countOrd ered By: Leobardo Harrington on 12-24-2024 Lymphocytes Auto (Unsp spec) [#/Vol] 2.15 10*3/uL 0.83-4.51 [facility] Absolute neutrophil countOrd ered By: Leobardopatito Harrington on 12-24-2024 Neutrophils (Bld) [#/Vol] 3.7 10*3/uL 2.0-7.7 [facility] Anion gap in Serum or Plasma Ordered By: Leobardopatito Harrington on 12-24-2024 Anion gap [Moles/Vol] 14 mmol/L - [facility] Automated lymphocyte count a s percentage of total leukocytesOrdered By: Leobardopatito Harrington on 12-24-2024 Lymphocytes/100 WBC Auto (Unsp spec) 32.5 % - [facility] BUN/creatinine ratioOrdered By: Leobardopatito Harrington on 12-24-2024 Urea nitrogen/Creatinine [Mass ratio] 5.7 mg/mg Low 10- [facility] Basic Metabolic Profile (BMP )on 12-24-2024 BUN/CRE 5.7 RATIO Low 01-26 [facility] Comment on above: Performed By: #### M 663.390 #### [facility] Laboratory [address] [place], [address] Calcium [Mass/Vol] 9.2 mg/dL Normal 7.6-11.0 [facility] Comment on above: Performed By: #### M 100.678 #### [facility] Laboratory [address] [place], [address] Chloride [Moles/Vol] 108 mmol/L Normal 98-108 [facility] Comment on above: Performed By: #### M 100.678 #### [facility] Laboratory [address] [place], [address] CO2 [Moles/Vol] 17.4 mmol/L Low 21.0-32.0 [facility] Comment on above: Performed By: #### M 100.678 #### [facility] Laboratory [address] [place], [address] Creatinine [Mass/Vol] 0.84 mg/dL Normal 0.70-1.20 [facility] Comment on above: Performed By: #### M 100.678 #### [facility] Laboratory [address] [place], [address] ECRCL 70.10 ml/min Normal 50-250 [facility] Comment on above: Performed By: #### M 100.678 #### [facility] Laboratory [address] [place], [address] GAP 14 Normal 5-15 [facility] Comment on above: Performed By: #### M 100.678 #### [facility] Laboratory [address] [place], [address] GFR/1.73 sq M.predicted among non-blacks MDRD (S/P/Bld) [Vol rate/Area] 75 mL/min/{1.73_m2} Normal >60 [facility] Comment on above: Result Comment: mL/m in/1.73m2 CKD-EPI Creatinine Equation (2020) Performed By: #### M 100.678 #### [facility] Laboratory [address] [place], [address] Glucose [Mass/Vol] 96 mg/dL Normal 70-99 [facility] Comment on above: Performed By: #### M 100.678 #### [facility] Laboratory [address] [place], [address] Potassium [Moles/Vol] 3.9 mmol/L Normal 3.3-5.1 [facility] Comment on above: Result Comment: Hemo lysis present, Results??could be affected. ?? Performed By: #### M 100.678 #### [facility] Laboratory [address] [place], [address] Sodium [Moles/Vol] 140 mmol/L Normal 133-145 [facility] Comment on above: Performed By: #### M 100.678 #### [facility] Laboratory [address] [place], [address] Urea nitrogen [Mass/Vol] 5 mg/dL Normal 4-19 [facility] Comment on above: Performed By: #### M 100.678 #### [facility] Laboratory [address] [place], [address] Basophil percentageOrdered B y: Leobardo Harrington on 12-24-2024 Basophils/100 WBC (Bld) 0.9 % 0-1 [facility] CBC W/Diff, Automatedon 12-08 Absolute Lymph 2.15 X10 3/uL Normal 0.83-4.51 [facility] Comment on above: Performed By: #### M 100.678 #### [facility] Laboratory [address] [place], [address] Absolute Neut 3.7 X10 3/uL Normal 2.0-7.7 [facility] Comment on above: Performed By: #### M 100.678 #### [facility] Laboratory [address] [place], [address] Basophils/100 WBC (Bld) 0.9 % Normal 0-1 [facility] Comment on above: Performed By: #### M 100.678 #### [facility] Laboratory [address] [place], [address] Eosinophils/100 WBC (Bld) 0.8 % Normal 0-5 [facility] Comment on above: Performed By: #### M 100.678 #### [facility] Laboratory [address] [place], [address] Erythrocyte distribution width (RBC) [Ratio] 13.2 % Normal 11.6-14.6 [facility] Comment on above: Performed By: #### M 100.678 #### [facility] Laboratory [address] [place], [address] Hematocrit (Bld) [Volume fraction] 39.3 % Normal 37-47 [facility] Comment on above: Performed By: #### M 100.678 #### [facility] Laboratory [address] [place], [address] Hemoglobin (Bld) [Mass/Vol] 13.1 g/dL Normal 12.0-15.0 [facility] Comment on above: Performed By: #### M 100.678 #### [facility] Laboratory [address] [place], [address] IG% 0.600 Normal 0.0-0.9 [facility] Comment on above: Result Comment: IG% - Immature Granulocytes (promyelocytes, myelocytes and metamyelocytes) > 1% indicates that a LEFT SHIFT is Present. Performed By: #### M 100.678 #### [facility] Laboratory [address] [place], [address] Lymphocytes/100 WBC (Bld) 32.5 % Normal 19-41 [facility] Comment on above: Performed By: #### M 100.678 #### [facility] Laboratory [address] [place], [address] MCH (RBC) [Entitic mass] 29.2 pg Normal 27.0-32.0 [facility] Comment on above: Performed By: #### M 100.678 #### [facility] Laboratory [address] [place], [address] MCHC (RBC) [Mass/Vol] 33.3 g/dL Normal 32-36 [facility] Comment on above: Performed By: #### M 100.678 #### [facility] Laboratory [address] [place], [address] MCV (RBC) [Entitic vol] 87.7 fL Normal 81-99 [facility] Comment on above: Performed By: #### M 100.678 #### [facility] Laboratory [address] [place], [address] Monocytes/100 WBC (Bld) 9.8 % Normal 0-10 [facility] Comment on above: Performed By: #### M 100.678 #### [facility] Laboratory [address] [place], [address] Neutrophils/100 WBC (Bld) 55.4 % Normal 47-70 [facility] Comment on above: Performed By: #### M 100.678 #### [facility] Laboratory [address] [place], [address] Nucleated RBC (Bld) [#/Vol] 0 10*3/uL Normal 0-5 [facility] Comment on above: Performed By: #### M 100.678 #### [facility] Laboratory [address] [place], [address] Platelet mean volume (Bld) [Entitic vol] 9.1 fL Normal 6.2-12.0 [facility] Comment on above: Performed By: #### M 100.678 #### [facility] Laboratory [address] [place], [address] Platelets (Bld) [#/Vol] 342 10*3/uL Normal 150-450 [facility] Comment on above: Performed By: #### M 100.678 #### [facility] Laboratory [address] [place], [address] RBC (Bld) [#/Vol] 4.48 10*6/uL Normal 4.2-5.4 [facility] Comment on above: Performed By: #### M 100.678 #### [facility] Laboratory [address] [place], [address] RDW SD 42.1 fl Normal 35.1-43.9 [facility] Comment on above: Performed By: #### M 100.678 #### [facility] Laboratory [address] [place], [address] WBC (Bld) [#/Vol] 6.6 10*3/uL Normal 4.4-11.0 [facility] Comment on above: Performed By: #### M 100.678 #### [facility] Laboratory [address] [place], [address] Carbon dioxide, total [Moles /volume] in Central venous bloodOrdered By: Leobardo Harrington on 12-24-2024 CO2 [Moles/Vol] 17.4 mmol/L Low 21.0-32.0 [facility] Chest PA and Lateralon 12-24 Chest PA and Lateral [facility] Imaging Services [address] [place] [address] Chest PA and Lateral MR#: [id number] Acct: [id number] Name: TARSHA GONZALEZ DOMINGA Rep #: [id number] : 1955 F 69 From: Chadd Santos MD PCP: Dr. Naomi Whyte, Status: [facility] ER Study: Chest PA and Lateral Date of Exam: 12/24/24 Exam# [id number] Ordering Dr: Leobardo Harrington MD PROCEDURE: CHEST [...] lung changes. No focal consolidation. Reading Location: [facility] CC: Dr. Naomi Whyte DO; Dr. Leobardo Harrington MD Professional Wrestler: Signed Normal [facility] Chloride assayOrdered By: Paige Harrington on 12-24-2024 Chloride [Moles/Vol] 108 mmol/L 98-108 [facility] Emergency Department Summary on 12-24-2024 Emergency Department Summary [facility] Medical Records Department [address] [place] [address] Emergency Department Summary 12/24/24 MR#: [id number] Acct: [id number] Name: TARSHA GONZALEZ Rep #: [id number] : 1955 69 From: Leobardo Harrington MD [...] months ago.) or Recent travel (Drove to [place] greater than month ago) Prior similar symptoms: Yes Recent Illness/Hospitaliza tion: No PFSH PFSH Medical History Glaucoma Macular degeneration of both eyes Social anxiety disorder Sense of smell altered Urinary tract infection with hematuria COVID-19 COPD (chronic obstructive pulmonary disease) TORREZ (dyspnea on exertion) PHILIP (obstructive sleep apnea) Nicotine dependence in remission Obesity Atherosclerotic heart disease of [place] coronary artery without angina pectoris Cardiac murmur, [...] ago did (more content not included)... Normal [facility] Eosinophil percentageOrdered By: Leobardo Harrington on 12-24-2024 Eosinophils/100 WBC (Bld) 0.8 % 0-5 [facility] Erythrocyte distribution wid th ratioOrdered By: Leobardo Harrington on 12-24-2024 Erythrocyte distribution width (RBC) [Ratio] 13.2 % 11.6-14.6 [facility] Erythrocyte distribution wid th standard deviationOrdered By: Leobardo Harrington on 12-24-2024 Erythrocyte distribution width (RBC) [Ratio] 42.1 fl 35.1-43.9 [facility] Glomerular filtration rate ( GFR) estimation/1.73 sq m using serum, plasma, or whole bOrdered By: Leobardo Harrington on 12-24-2024 GFR/1.73 sq M.predicted among non-blacks MDRD (S/P/Bld) [Vol rate/Area] 75 mL/min/{1.73_m2} >60 [facility] Comment on above: mL/min/1.73m2 CKD-EP I Creatinine Equation (2020) Hematocrit Auto (Bld) [Volum e fraction]Ordered By: Leobardo Harrington on 12-24-2024 Hematocrit (Bld) [Volume fraction] 39.3 % 37-47 [facility] Hemoglobin measurementOrdere d By: Leobardopatito Harrington on 12-24-2024 Hemoglobin (Bld) [Mass/Vol] 13.1 g/dL 12.0-15.0 [facility] Immature granulocytes/100 WB C Auto (Bld)Ordered By: Leobardopatito Harrington on 12-24-2024 Immature granulocytes/100 WBC (Bld) 0.600 % 0.0-0.9 [facility] Comment on above: IG% - Immature Granu locytes (promyelocytes, myelocytes and metamyelocytes) > 1% indicates that a LEFT SHIFT is Present. MCV (mean corpuscular volume ) determinationOrdered By: Leobardo Harrington on 12-24-2024 MCV (RBC) [Entitic vol] 87.7 fL 81-99 [facility] Mean corpuscular hemoglobin (MCH) determinationOrdered By: Leobardopatito Harrington on 12-24-2024 MCH (RBC) [Entitic mass] 29.2 pg 27.0-32.0 [facility] Mean corpuscular hemoglobin concentration (MCHC) determinationOrdered By: Leobardopatito Harrington on 12-24-2024 MCHC (RBC) [Mass/Vol] 33.3 g/dL 32-36 [facility] Mean platelet volume determi nationOrdered By: Leobardopatito Harrington on 12-24-2024 Platelet mean volume (Bld) [Entitic vol] 9.1 fL 6.2-12.0 [facility] Monocyte percentageOrdered B y: Leobardo Harrington on 12-24-2024 Monocytes/100 WBC (Bld) 9.8 % 0-10 [facility] Neutrophil percentageOrdered By: Leobardopatito Harrington on 12-24-2024 Neutrophils/100 WBC (Bld) 55.4 % 47-70 [facility] Nucleated red blood cell per centageOrdered By: Leobardopatito Harrington on 12-24-2024 Nucleated RBC/100 WBC (Bld) [Ratio] 0 % 0-5 [facility] Platelet countOrdered By: [facility] Len on 12-24-2024 Platelets (Bld) [#/Vol] 342 10*3/uL 150-450 [facility] Potassium measurement (mass/ volume)Ordered By: Leobardopatito Harrington on 12-24-2024 Potassium (Unsp spec) [Mass/Vol] 3.9 mmol/L 3.3-5.1 [facility] Comment on above: Hemolysis present, R esults could be affected. RBC Auto (Bld) [#/Vol]Ordere d By: Leobardopatito Harrington on 12-24-2024 RBC (Bld) [#/Vol] 4.48 10*6/uL 4.2-5.4 [facility] Serum creatinine measurement (mass/volume)Ordered By: Leobardo Harrington on 12-24-2024 Creatinine [Mass/Vol] 0.84 mg/dL 0.70-1.20 [facility] Serum glucose measurement (m ass/volume)Ordered By: Leobardo Harrington on 12-24-2024 Glucose [Mass/Vol] 96 mg/dL 70-99 [facility] Serum or plasma calcium aida urement (mass/volume)Ordered By: Leobardo Harrington on 12-24-2024 Calcium [Mass/Vol] 9.2 mg/dL 7.6-11.0 [facility] Serum or plasma urea nitroge n measurement (mass/volume)Ordered By: Leobardopatito Harrington on 12-24-2024 Urea nitrogen [Mass/Vol] 5 mg/dL 4-19 [facility] Sodium levelOrdered By: Leobardopatito Harrington on 12-24-2024 Sodium [Moles/Vol] 140 mmol/L 133-145 [facility] White blood cell (WBC) count Ordered By: Leobardopatito Harrington on 12-24-2024 WBC (Bld) [#/Vol] 6.6 10*3/uL 4.4-11.0 [facility] Chest PA and Lateralon 11-18 Chest PA and Lateral [facility] Imaging Services [address] [place] [address] Chest PA and Lateral MR#: [id number] Acct: [id number] Name: TARSHA GONZALEZ Rep #: [id number] : 1955 F 69 From: Johann Bowman MD PCP: Dr. Naomi Whyte DO Status: REG CLI Study: Chest PA and Lateral Date of Exam: 11/18/24 Exam# [id number] Ordering Dr: Naomi Whyte DO PROCEDURE: CHEST [...] IMPRESSION: No acute cardiopulmonary abnormalities. Reading Location: [facility] CC: Dr. Naomi Whyte DO Professional Wrestler: Signed Normal [facility] Cardiovascular stress test r eportOrdered By: Mary Villasenor on 10-24-2024 Study report [facility] Cardiovascular Services [address] [place] [address] MR#: [id number] Acct: [id number] Name: TARSHA GONZALEZ DOMINGA Rep #: [id number] [...] of 77%. This note was generated with [employer] software. It may contain incorrectwords, spelling, and punctuation that were not noted in checking the note beforesigning. 10/24/24944 Date _ Mary Villasenor MD CC: Dr. Naomi Whyte DO; Dr. Angel Patel MD ~ Date Dictated: 10/24/24942 Date Transcribed: 10/24/24942 Professional Wrestler: JOHN Signed [facility] Work Phone: Echo Completeon 10-24-2024 Echo Complete [facility] Cardiovascular Services [address] [place] [address] Echo Complete 10/24/24 1052 MR#: [id number] Acct: [id number] Name: TARSHA GONZALEZ Rep #: [id number] : 1955 69 From: Mary Villasenor MD [...] Date Dictated: 10/24/24 1052 Date Transcribed: 10/24/241341 Professional Wrestler: Signed Normal [facility] Echocardiogram study reportO rdered By: Mary Villas[place] on 10-24-2024 Study report [facility] Cardiovascular Services [address] [place] [address] Echo Complete 10/24/24 105 MR#: [id number] Acct: [id number] Name: TARSHA GONZALEZ DOMINGA Rep #:[id number] : 1955 69 From: Mary Villasenor MD Attending Dr: Dr. Angel Patel MD Status: REG CLI Ordering Dr: Angel Patel MD Date: 10/24/24 Location: [facility] Sex: F C Admitted: Reason For Study [...] Dictated: 10/24/24 1052 Date Transcribed: 10/24/24 134 Professional Wrestler: Signed [facility] Work Phone: Stress Reporton 10-24-2024 Stress Report [facility] Cardiovascular Services [address] [place] [address] MR#: [id number] Acct: [id number] Name: TARSHA GONZALEZ Rep #: [id number] : 1955 69 From: Mary Villas[place] MD [...] of 77%. This note was generated with [employer] software. It may contain incorrect words, spelling, and punctuation that were not noted in checking the note before signing. 10/24/2445 Date Mary Villasenor MD CC: Dr. Naomi Whyte, DO; Dr. Angel Patel MD Date Dictated: 10/24/24942 Date Transcribed: 10/24/24942 Professional Wrestler: AR Signed Normal [facility] Absolute lymphocyte countOrd ered By: Naomi Whyte on 10-17-2024 Lymphocytes Auto (Unsp spec) [#/Vol] 2.41 10*3/uL 0.83-4.51 [facility] Absolute neutrophil countOrd ered By: Naomi Whyte on 10-17-2024 Neutrophils (Bld) [#/Vol] 4.2 10*3/uL 2.0-7.7 [facility] Anion gap in Serum or Plasma Ordered By: Naomi Whyte on 10-17-2024 Anion gap [Moles/Vol] 13 mmol/L 5-15 [facility] Automated lymphocyte count a s percentage of total leukocytesOrdered By: Naomi Whyte on 10-17-2024 Lymphocytes/100 WBC Auto (Unsp spec) 32.5 % -41 [facility] BUN/creatinine ratioOrdered By: Naomi Whyte on 10-17-2024 Urea nitrogen/Creatinine [Mass ratio] 9.6 mg/mg Low 10-20 [facility] Basophil percentageOrdered B y: Naomi Whyte on 10-17-2024 Basophils/100 WBC (Bld) 0.9 % 0-1 [facility] Bilirubin, totalOrdered By: Naomi Whyte on 10-17-2024 Bilirubin [Mass/Vol] 0.42 mg/dL 0.00-1.30 [facility] CBC W/Diff, Automatedon 10-07 Absolute Lymph 2.41 X10 3/uL Normal 0.83-4.51 [facility] Comment on above: Performed By: #### L 100.0100, L501.5200, L500.4100, L500.4050, L503.0106 #### [facility] Laboratory [address] [place], [address] Absolute Neut 4.2 X10 3/uL Normal 2.0-7.7 [facility] Comment on above: Performed By: #### L 100.0100, L501.5200, L500.4100, L500.4050, L503.0106 #### [facility] Laboratory [address] [place], [address] Basophils/100 WBC (Bld) 0.9 % Normal 0-1 [facility] Comment on above: Performed By: #### L 100.0100, L501.5200, L500.4100, L500.4050, L503.0106 #### [facility] Laboratory [address] [place], [address] Eosinophils/100 WBC (Bld) 1.3 % Normal 0-5 [facility] Comment on above: Performed By: #### L 100.0100, L501.5200, L500.4100, L500.4050, L503.0106 #### [facility] Laboratory [address] [place], [address] Erythrocyte distribution width (RBC) [Ratio] 13.2 % Normal 11.6-14.6 [facility] Comment on above: Performed By: #### L 100.0100, L501.5200, L500.4100, L500.4050, L503.0106 #### [facility] Laboratory [address] [place], [address] Hematocrit (Bld) [Volume fraction] 41.7 % Normal 37-47 [facility] Comment on above: Performed By: #### L 100.0100, L501.5200, L500.4100, L500.4050, L503.0106 #### [facility] Laboratory [address] [place], [address] Hemoglobin (Bld) [Mass/Vol] 13.6 g/dL Normal 12.0-15.0 [facility] Comment on above: Performed By: #### L 100.0100, L501.5200, L500.4100, L500.4050, L503.0106 #### [facility] Laboratory [address] [place], [address] IG% 1.100 High 0.0-0.9 [facility] Comment on above: Result Comment: IG% - Immature Granulocytes (promyelocytes, myelocytes and metamyelocytes) > 1% indicates that a LEFT SHIFT is Present. Performed By: #### L 100.0100, L501.5200, L500.4100, L500.4050, L503.0106 #### [facility] [address] [place], [address] Lymphocytes/100 WBC (Bld) 32.5 % Normal 19-41 [facility] Comment on above: Performed By: #### L 100.0100, L501.5200, L500.4100, L500.4050, L503.0106 #### [facility] [address] [place], [address] MCH (RBC) [Entitic mass] 29.4 pg Normal 27.0-32.0 [facility] Comment on above: Performed By: #### L 100.0100, L501.5200, L500.4100, L500.4050, L503.0106 #### [facility] [address] [place], [address] MCHC (RBC) [Mass/Vol] 32.6 g/dL Normal 32-36 [facility] Comment on above: Performed By: #### L 100.0100, L501.5200, L500.4100, L500.4050, L503.0106 #### [facility] [address] [place], [address] MCV (RBC) [Entitic vol] 90.3 fL Normal 81-99 [facility] Comment on above: Performed By: #### L 100.0100, L501.5200, L500.4100, L500.4050, L503.0106 #### [facility] [address] [place], [address] Monocytes/100 WBC (Bld) 7.3 % Normal 0-10 [facility] Comment on above: Performed By: #### L 100.0100, L501.5200, L500.4100, L500.4050, L503.0106 #### [facility] [address] [place], [address] Neutrophils/100 WBC (Bld) 56.9 % Normal 47-70 [facility] Comment on above: Performed By: #### L 100.0100, L501.5200, L500.4100, L500.4050, L503.0106 #### [facility] [address] [place], [address] Nucleated RBC (Bld) [#/Vol] 0 10*3/uL Normal 0-5 [facility] Comment on above: Performed By: #### L 100.0100, L501.5200, L500.4100, L500.4050, L503.0106 #### [facility] [address] [place], [address] Platelet mean volume (Bld) [Entitic vol] 9.3 fL Normal 6.2-12.0 [facility] Comment on above: Performed By: #### L 100.0100, L501.5200, L500.4100, L500.4050, L503.0106 #### [facility] [address] [place], [address] Platelets (Bld) [#/Vol] 345 10*3/uL Normal 150-450 [facility] Comment on above: Performed By: #### L 100.0100, L501.5200, L500.4100, L500.4050, L503.0106 #### [facility] [address] [place], [address] RBC (Bld) [#/Vol] 4.62 10*6/uL Normal 4.2-5.4 [facility] Comment on above: Performed By: #### L 100.0100, L501.5200, L500.4100, L500.4050, L503.0106 #### [facility] [address] [place], [address] RDW SD 43.0 fl Normal 35.1-43.9 [facility] Comment on above: Performed By: #### L 100.0100, L501.5200, L500.4100, L500.4050, L503.0106 #### [facility] [address] [place], [address] WBC (Bld) [#/Vol] 7.4 10*3/uL Normal 4.4-11.0 [facility] Comment on above: Performed By: #### L 100.0100, L501.5200, L500.4100, L500.4050, L503.0106 #### [facility] [address] [place], [address] Calculated very low density lipoprotein (VLDL) cholesterol measurementOrdered By: Naomianisa Coulterbayron on 10-17-2024 Calculated very low density lipoprotein (VLDL) cholesterol measurement 22 mg/dL 5-40 [facility] Carbon dioxide, total [Moles /volume] in Central venous bloodOrdered By: Naomi Whyte on 10-17-2024 CO2 [Moles/Vol] 18.8 mmol/L Low 21.0-32.0 [facility] Chloride assayOrdered By: Ai Whyte on 10-17-2024 Chloride [Moles/Vol] 106 mmol/L 98-108 [facility] Comprehensive Metabolic Prof ilon 10-17-2024 Albumin [Mass/Vol] 4.2 g/dL Normal 3.4-4.8 [facility] Comment on above: Performed By: #### L 100.0100, L501.5200, L500.4100, L500.4050, L503.0106 #### [facility] [address] [place], [address] Albumin/Globulin [Mass ratio] 1.5 {ratio} Normal 0.9-2.4 [facility] Comment on above: Performed By: #### L 100.0100, L501.5200, L500.4100, L500.4050, L503.0106 #### [facility] [address] [place], [address] ALK PHOS 98 U/L Normal 35-104 [facility] Comment on above: Performed By: #### L 100.0100, L501.5200, L500.4100, L500.4050, L503.0106 #### [facility] [address] [place], [address] ALT [Catalytic activity/Vol] 23 U/L Normal <=34 [facility] Comment on above: Performed By: #### L 100.0100, L501.5200, L500.4100, L500.4050, L503.0106 #### [facility] [address] [place], [address] AST [Catalytic activity/Vol] 18 U/L Normal <=31 [facility] Comment on above: Performed By: #### L 100.0100, L501.5200, L500.4100, L500.4050, L503.0106 #### [facility] [address] [place], [address] Bilirubin [Mass/Vol] 0.42 mg/dL Normal 0.00-1.30 [facility] Comment on above: Performed By: #### L 100.0100, L501.5200, L500.4100, L500.4050, L503.0106 #### [facility] [address] [place], [address] BUN/CRE 9.6 RATIO Low 10-20 [facility] Comment on above: Performed By: #### L 100.0100, L501.5200, L500.4100, L500.4050, L503.0106 #### [facility] [address] [place], [address] Calcium [Mass/Vol] 9.4 mg/dL Normal 7.6-11.0 [facility] Comment on above: Performed By: #### L 100.0100, L501.5200, L500.4100, L500.4050, L503.0106 #### [facility] [address] [place], [address] Chloride [Moles/Vol] 106 mmol/L Normal 98-108 [facility] Comment on above: Performed By: #### L 100.0100, L501.5200, L500.4100, L500.4050, L503.0106 #### [facility] [address] [place], [address] CO2 [Moles/Vol] 18.8 mmol/L Low 21.0-32.0 [facility] Comment on above: Performed By: #### L 100.0100, L501.5200, L500.4100, L500.4050, L503.0106 #### [facility] [address] [place], [address] Creatinine [Mass/Vol] 1.09 mg/dL Normal 0.70-1.20 [facility] Comment on above: Performed By: #### L 100.0100, L501.5200, L500.4100, L500.4050, L503.0106 #### [facility] [address] [place], [address] GAP 13 Normal 5-15 [facility] Comment on above: Performed By: #### L 100.0100, L501.5200, L500.4100, L500.4050, L503.0106 #### [facility] [address] [place], [address] GFR/1.73 sq M.predicted among non-blacks MDRD (S/P/Bld) [Vol rate/Area] 55 mL/min/{1.73_m2} Low >60 [facility] Comment on above: Result Comment: mL/m in/1.73m2 CKD-EPI Creatinine Equation (2020) Performed By: #### L 100.0100, L501.5200, L500.4100, L500.4050, L503.0106 #### [facility] [address] [place], [address] Globulin (S) [Mass/Vol] 2.9 g/dL Normal 2.2-4.2 [facility] Comment on above: Performed By: #### L 100.0100, L501.5200, L500.4100, L500.4050, L503.0106 #### [facility] [address] [place], [address] Glucose [Mass/Vol] 89 mg/dL Normal 70-99 [facility] Comment on above: Performed By: #### L 100.0100, L501.5200, L500.4100, L500.4050, L503.0106 #### [facility] [address] [place], [address] Potassium [Moles/Vol] 4.1 mmol/L Normal 3.3-5.1 [facility] Comment on above: Performed By: #### L 100.0100, L501.5200, L500.4100, L500.4050, L503.0106 #### [facility] [address] [place], [address] Sodium [Moles/Vol] 138 mmol/L Normal 133-145 [facility] Comment on above: Performed By: #### L 100.0100, L501.5200, L500.4100, L500.4050, L503.0106 #### [facility] [address] [place], [address] T PROT 7.0 g/dL Normal 5.9-8.4 [facility] Comment on above: Performed By: #### L 100.0100, L501.5200, L500.4100, L500.4050, L503.0106 #### [facility] [address] [place], [address] Urea nitrogen [Mass/Vol] 11 mg/dL Normal 4-19 [facility] Comment on above: Performed By: #### L 100.0100, L501.5200, L500.4100, L500.4050, L503.0106 #### [facility] [address] [place], [address] Eosinophil percentageOrdered By: Naomi Whyte on 10-17-2024 Eosinophils/100 WBC (Bld) 1.3 % 0-5 [facility] Erythrocyte distribution wid th ratioOrdered By: Naomi Whyte on 10-17-2024 Erythrocyte distribution width (RBC) [Ratio] 13.2 % 11.6-14.6 [facility] Erythrocyte distribution wid th standard deviationOrdered By: Naomi Whyte on 10-17-2024 Erythrocyte distribution width (RBC) [Ratio] 43.0 fl 35.1-43.9 [facility] Glomerular filtration rate ( GFR) estimation/1.73 sq m using serum, plasma, or whole bOrdered By: Naomi Whyte on 10-17-2024 GFR/1.73 sq M.predicted among non-blacks MDRD (S/P/Bld) [Vol rate/Area] 55 mL/min/{1.73_m2} Low >60 [facility] Comment on above: mL/min/1.73m2 CKD-EP I Creatinine Equation (2020) Hematocrit Auto (Bld) [Volum e fraction]Ordered By: Naomi Whyte on 10-17-2024 Hematocrit (Bld) [Volume fraction] 41.7 % 37-47 [facility] Hemoglobin measurementOrdere d By: Naomi Whyte on 10-17-2024 Hemoglobin (Bld) [Mass/Vol] 13.6 g/dL 12.0-15.0 [facility] Immature granulocytes/100 WB C Auto (Bld)Ordered By: Naomi Whyte on 10-17-2024 Immature granulocytes/100 WBC (Bld) 1.100 % High 0.0-0.9 [facility] Comment on above: IG% - Immature Granu locytes (promyelocytes, myelocytes and metamyelocytes) > 1% indicates that a LEFT SHIFT is Present. LDL calc ser/plasOrdered By: Naomi Whyte on 10-17-2024 Cholesterol in LDL [Mass/Vol] 196 mg/dL [facility] Comment on above: Cvogldyxqm=889-006 m g/dL & Higher Hrue=229 mg/dL or greater Laboratory - Chemistry and C hemistry - challengeOrdered By: Naomi Whyte on 10-17-2024 AST [Catalytic activity/Vol] 18 U/L <32 [facility] Lipid Profileon 10-17-2024 CHOL:HDL 4.20 Normal [facility] Comment on above: Performed By: #### L 100.0100, L501.5200, L500.4100, L500.4050, L503.0106 #### [facility] [address] [place], [address] Cholesterol [Mass/Vol] 285 mg/dL High <=200 [facility] Comment on above: Result Comment: Chol esterol level, Desirable <200 mg/dL Borderline high cholesterol 200-239 mg/dL High cholesterol >=240 mg/dL Recommendations of the NCEP Adult Treatment Panel for the following risk-cutoff thresholds for the [place] population. Performed By: #### L 100.0100, L501.5200, L500.4100, L500.4050, L503.0106 #### [facility] [address] [place], [address] Cholesterol in HDL [Mass/Vol] 68 mg/dL Normal [facility] Comment on above: Result Comment: Evangelina onal Cholesterol Education Program (NCEP) guidelines: <40 mg/dL: Low HDL-cholesterol (major risk factor for CHD) >= 60 mg/dL: High HDL-cholesterol (negative risk factor for CHD) HDL-cholesterol is affected by a number of factors, e.g. smoking, exercise, hormones, sex and age. Performed By: #### L 100.0100, L501.5200, L500.4100, L500.4050, L503.0106 #### [facility] [address] [place], [address] Cholesterol in LDL [Mass/Vol] 196 mg/dL Normal [facility] Comment on above: Result Comment: Bord szwzmh=348-423 mg/dL Higher Fupj=496 mg/dL or greater Performed By: #### L 100.0100, L501.5200, L500.4100, L500.4050, L503.0106 #### [facility] [address] [place], [address] Cholesterol in VLDL [Mass/Vol] 22 mg/dL Normal 5-40 [facility] Comment on above: Performed By: #### L 100.0100, L501.5200, L500.4100, L500.4050, L503.0106 #### [facility] [address] [place], [address] Triglyceride [Mass/Vol] 108 mg/dL Normal [facility] Comment on above: Result Comment: The drugs N-Acetylcysteine and Metamizole may falsely depress this assay. Normal range: <150 mg/dL Borderline High: 150-199 mg/dL High: 200-499 mg/dL Very High: >500 mg/dL Performed By: #### L 100.0100, L501.5200, L500.4100, L500.4050, L503.0106 #### [facility] [address] [place], [place], [id number] MCV (mean corpuscular volume ) determinationOrdered By: Naomi Whyte on 10-17-2024 MCV (RBC) [Entitic vol] 90.3 fL 81-99 [facility] Magnesiumon 10-17-2024 Magnesium [Mass/Vol] 2.3 mg/dL High 1.5-2.2 [facility] Comment on above: Performed By: #### L 100.0100, L501.5200, L500.4100, L500.4050, L503.0106 #### [facility] [address] [place], [place], [id number] Magnesium measurement (mass/ volume)Ordered By: Naomi Whyte on 10-17-2024 Magnesium (Unsp spec) [Mass/Vol] 2.3 mg/dL High 1.5-2.2 [facility] Mean corpuscular hemoglobin (MCH) determinationOrdered By: Naomi Whyte on 10-17-2024 MCH (RBC) [Entitic mass] 29.4 pg 27.0-32.0 [facility] Mean corpuscular hemoglobin concentration (MCHC) determinationOrdered By: Naomi Whyte on 10-17-2024 MCHC (RBC) [Mass/Vol] 32.6 g/dL 32-36 [facility] Mean platelet volume determi nationOrdered By: Naomi Whyte on 10-17-2024 Platelet mean volume (Bld) [Entitic vol] 9.3 fL 6.2-12.0 [facility] Monocyte percentageOrdered B y: Naomi Whyte on 10-17-2024 Monocytes/100 WBC (Bld) 7.3 % 0-10 [facility] Neutrophil percentageOrdered By: Naomi Whyte on 10-17-2024 Neutrophils/100 WBC (Bld) 56.9 % 47-70 [facility] Nucleated red blood cell per centageOrdered By: Naomi Whyte on 10-17-2024 Nucleated RBC/100 WBC (Bld) [Ratio] 0 % 0-5 [facility] Platelet countOrdered By: Ai Whyte on 10-17-2024 Platelets (Bld) [#/Vol] 345 10*3/uL 150-450 [facility] Potassium measurement (mass/ volume)Ordered By: Naomi Whyte on 10-17-2024 Potassium (Unsp spec) [Mass/Vol] 4.1 mmol/L 3.3-5.1 [facility] RBC Auto (Bld) [#/Vol]Ordere d By: Naomi Whyte on 10-17-2024 RBC (Bld) [#/Vol] 4.62 10*6/uL 4.2-5.4 [facility] Screening total cholesterol/ high density lipoprotein (HDL) cholesterol ratioOrdered By: Naomi Whyte on 10-17-2024 Cholesterol.total/Choles terol in HDL [Mass ratio] 4.20 {ratio} [facility] Serum creatinine measurement (mass/volume)Ordered By: Naomi Whyte on 10-17-2024 Creatinine [Mass/Vol] 1.09 mg/dL 0.70-1.20 [facility] Serum globulin measurementOr dered By: Naomi Whyte on 10-17-2024 Globulin (S) [Mass/Vol] 2.9 g/dL 2.2-4.2 [facility] Serum glucose measurement (m ass/volume)Ordered By: Naomi Whyte on 10-17-2024 Glucose [Mass/Vol] 89 mg/dL 70-99 [facility] Serum or plasma alanine jackson otransferase (ALT) measurementOrdered By: Naomi Whyte on 10-17-2024 ALT [Catalytic activity/Vol] 23 U/L <35 [facility] Serum or plasma albumin aida urement (mass/volume)Ordered By: Naomi Whyte on 10-17-2024 Albumin [Mass/Vol] 4.2 g/dL 3.4-4.8 [facility] Serum or plasma albumin/glob ulin mass ratioOrdered By: Naomi Whyte on 10-17-2024 Albumin/Globulin [Mass ratio] 1.5 {ratio} 0.9-2.4 [facility] Serum or plasma alkaline jeri sphatase measurementOrdered By: Naomi Whyte on 10-17-2024 ALP [Catalytic activity/Vol] 98 U/L 35-104 [facility] Serum or plasma calcium aida urement (mass/volume)Ordered By: Naomi Whyte on 10-17-2024 Calcium [Mass/Vol] 9.4 mg/dL 7.6-11.0 [facility] Serum or plasma cholesterol in HDL measurement (mass/volume)Ordered By: Naomi Whyte on 10-17-2024 Cholesterol in HDL [Mass/Vol] 68 mg/dL >40 [facility] Comment on above: National Cholesterol Education Program (NCEP) guidelines:<40 mg/dL: Low HDL-cholesterol (major risk factor for CHD)>= 60 mg/dL: High HDL-cholesterol (negative risk factor for CHD)HDL-cholesterol is affected by a number of factors, e.g. smoking, exercise, hormones, sex and age. Serum or plasma cholesterol measurement (mass/volume)Ordered By: Naomi Whyte on 10-17-2024 Cholesterol [Mass/Vol] 285 mg/dL High <201 [facility] Comment on above: Cholesterol level, D esirable <200 mg/dLBorderline high cholesterol 200-239 mg/dLHigh cholesterol >=240 mg/dLRecommendations of the NCEP Adult Treatment Panel for the following risk-cutoff thresholds for the [place] population. Serum or plasma urea nitroge n measurement (mass/volume)Ordered By: Naomi Whyte on 10-17-2024 Urea nitrogen [Mass/Vol] 11 mg/dL 4-19 [facility] Sodium levelOrdered By: Naomi Whyte on 10-17-2024 Sodium [Moles/Vol] 138 mmol/L 133-145 [facility] Total proteinOrdered By: Graciela Whyte on 10-17-2024 Protein [Mass/Vol] 7.0 g/dL 5.9-8.4 [facility] Triglycerides measurementOrd ered By: Naomi Whyte on 10-17-2024 Triglyceride [Mass/Vol] 108 mg/dL <199 [facility] Comment on above: The drugs N-Acetylcy steine and Metamizole may falsely depress this assay. Normal range: <150 mg/dLBorderline High: 150-199 mg/dLHigh: 200-499 mg/dLVery High: >500 mg/dL Vitamin B12on 10-17-2024 Cobalamin (Vitamin B12) [Mass/Vol] 357 pg/mL Normal 180-914 [facility] Comment on above: Performed By: #### L 100.0100, L501.5200, L500.4100, L500.4050, L503.0106 #### [facility] [address] [place], [address] Vitamin B12 ser/plasOrdered By: Naomi Yfnbayron on 10-17-2024 Cobalamin (Vitamin B12) [Mass/Vol] 357 pg/mL 180-914 [facility] White blood cell (WBC) count Ordered By: Naomi Whyte on 10-17-2024 WBC (Bld) [#/Vol] 7.4 10*3/uL 4.4-11.0 [facility] Pulmonary Visit Reporton Pulmonary Visit Report [facility] [place] [address] [place], [place] [address] OFFICE VISIT Date of Service: 09/10/24 MR#: [id number] Acct: [id number] Name: TARSHA GONZALEZ DOMINGA Rep #: [id number] 1 : 1955 Provider: NELI De Jesus Age/Sex: 69/F Location: [facility].PMW Status: Signed Assessment and Plan Assessment and [...] (pediatric) Plan This note was generated with [employer] dictation software. It may contain incorrect words, [...] Reasons: 6 M FU Chief Complaint: [place] [employer] Repairer Required: No DME Vendor: Kim Accompanied by: [...] 04/20/23 0 (more content not included)... Normal [facility] Pulmonary Visit Reporton Pulmonary Visit Report [facility] [place] [address] [place] [address] OFFICE VISIT Date of Service: 03/12/24 MR#: [id number] Acct: [id number] Name: TARSHA GONZALEZ Rep #: [id number] 4 : 1955 Provider: NELI De Jesus Age/Sex: 69/F Location: [facility].W Status: Signed with Addenda ADDENDUM by NELI De Jesus on 06/04/24 at 2141 Assessment and Plan Assessment and Plan (1) [...] uncomplicated Plan Details Follow Up: 6 Months ([facility]) 06/04/24 113 Date Cathie De Jesus NP cc: Dr. [...] She recently returned from a trip to [place], unfortunately her brother from cancer. 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 Normal [facility] Absolute lymphocyte countOrd ered By: Jagdish Day on 12-15-2022 Lymphocytes Auto (Unsp spec) [#/Vol] 2.44 10*3/uL 0.83-4.51 [facility] Basophil percentageOrdered B y: Jagdish Day on 12-15-2022 Basophils/100 WBC (Bld) 0.7 % 0-1 [facility] Chloride [Moles/Vol] 109 mmol/L 98-107 [facility] Eosinophils/100 WBC (Bld) 1.5 % 0-5 [facility] Glucose [Mass/Vol] 109 mg/dL 74-106 [facility] Comment on above: Fasting Glucose resu lt from 100 to 125 mg/dL suggests IMPAIRED HOMEOSTASIS per A.D.A. criteria. Neutrophils (Bld) [#/Vol] 2.8 10*3/uL 2.0-7.7 [facility] Neutrophils/100 WBC (Bld) 46.2 % 47-70 [facility] Potassium [Moles/Vol] 3.5 mmol/L 3.5-5.1 [facility] Sodium [Moles/Vol] 138 mmol/L 136-145 [facility] WBC (Bld) [#/Vol] 6.1 10*3/uL 4.4-11.0 [facility] Blood erythrocytes count (nu mber/volume)Ordered By: Jagdish Day on 12-15-2022 RBC (Bld) [#/Vol] 4.90 10*6/uL 4.2-5.4 [facility] Blood hemoglobin measurement (mass/volume)Ordered By: Jagdish Day on 12-15-2022 Hemoglobin (Bld) [Mass/Vol] 14.4 g/dL 12.0-15.0 [facility] Blood lymphocytes/100 leukoc ytesOrdered By: Jagdish Day on 12-15-2022 Lymphocytes/100 WBC (Bld) 40.1 % 19-41 [facility] Blood monocytes/100 leukocyt esOrdered By: Jagdish Day on 12-15-2022 Monocytes/100 WBC (Bld) 11.0 % 0-10 [facility] Blood platelet mean volumeOr dered By: Jagdish Day on 12-15-2022 Platelet mean volume (Bld) [Entitic vol] 9.2 fL 6.2-12.0 [facility] Determination of erythrocyte mean corpuscular volume (MCV)Ordered By: Jagdish Day on 12-15-2022 MCV (RBC) [Entitic vol] 88.6 fL 81-99 [facility] Hematocrit Auto (Bld) [Volum e fraction]Ordered By: Jagdish Day on 12-15-2022 Hematocrit (Bld) [Volume fraction] 43.4 % 37-47 [facility] Laboratory - Chemistry and C hemistry - challengeOrdered By: Jagdish Day on 12-15-2022 CO2 [Moles/Vol] 22.0 mmol/L 21.0-32.0 [facility] Urea nitrogen/Creatinine [Mass ratio] 11.1 mg/mg 10-20 [facility] - Hematology and Cell countsOrdered By: Jagdish Day on 12-15-2022 Erythrocyte distribution width (RBC) [Entitic vol] 40.5 fL 35.1-43.9 [facility] Erythrocyte distribution width (RBC) [Ratio] 12.5 % 11.6-14.6 [facility] Immature granulocytes/100 WBC (Bld) 0.500 % 0.0-0.9 [facility] Comment on above: IG% - Immature Granu locytes (promyelocytes, myelocytes and metamyelocytes) > 1% indicates that a LEFT SHIFT is Present. MCH (RBC) [Entitic mass] 29.4 pg 27.0-32.0 [facility] Nucleated RBC/100 WBC (Bld) [Ratio] 0 % 0-5 [facility] MCHC Auto (RBC) [Mass/Vol]Or dered By: Jagdish Day on 12-15-2022 MCHC (RBC) [Mass/Vol] 33.2 g/dL 32-36 [facility] No Panel InformationOrdered By: Jagdish Day on 12-15-2022 Estimated Creatinine Clearance Calc 45.16 ml/min [facility] Estimated GFR (MDRD) Amer 71 mL/min >60 [facility] Comment on above: GFR Calc Estimated GFR (MDRD) Non-Af Amer 59 mL/min >60 [facility] Comment on above: Non- GFR Calc Troponin I High Sensitivity 19 pg/mL 3.0-54.0 [facility] Comment on above: Please Note: New Margareth t Units and Gender Specific Reference Ranges. For more information see Policy Stat Procedure [place] High Sensitivity Troponin (TNIH) and attachments. Platelets bldOrdered By: Reynaldo Day on 12-15-2022 Platelets (Bld) [#/Vol] 321 10*3/uL 150-450 [facility] SARS-CoV-2 (COVID-19) Ag IA. rapid Ql (Resp)Ordered By: Jagdish Day on 12-15-2022 SARS-CoV-2 Antigen (Rapid) SARS-CoV-2 (COVID 19) [facility] SARS-CoV-2 Antigen (Rapid) SARS-CoV-2 (COVID 19) [facility] Serum or plasma calcium aida urement (mass/volume)Ordered By: Jagdish Day on 12-15-2022 Calcium [Mass/Vol] 9.7 mg/dL 8.5-10.1 [facility] Serum or plasma creatinine m easurement (mass/volume)Ordered By: Jagdish Day on 12-15-2022 Creatinine [Mass/Vol] 1.00 mg/dL 0.55-1.02 [facility] Comment on above: The validity of the calculated GFR & GFRAA in patients over 70 years has not been determined. Clinical correlation is essential. Serum or plasma urea nitroge n measurement (mass/volume)Ordered By: Jagdish Day on 12-15-2022 Urea nitrogen [Mass/Vol] 11 mg/dL 7-18 [facility] Thin prep Papanicolaou smear with manual screeningOrdered By: Jagdish Day on 12-15-2022 Thin prep Papanicolaou smear with manual screening 7 5-15 [facility] Culture, urineOrdered By: [facility] on 02-10-2022 Bacteria identified Cx Nom (U) Klebsiella pneumoniae sp pneum [facility] Laboratory - Chemistry and C hemistry - challengeon 02-08-2022 Bilirubin Ql (U) Negative [facility] Glucose Ql (U) Negative [facility] Ketones Ql (U) Small (15+) [facility] pH (U) 5.0 [pH] [facility] Specific gravity (U) [Rel density] 1.030 [facility] Urobilinogen (U) [Mass/Vol] Negative [facility] Laboratory - Hematology and Cell countson 02-08-2022 Hemoglobin Ql (U) Negative [facility] Laboratory - Specimen inform ationon 02-08-2022 Clarity (U) Cloudy [facility] Color (U) AYAH [facility] Laboratory - Urinalysison Nitrite Ql (U) Positive [facility] Protein Ql (U) Negative [facility] No Panel Informationon 02-08 Urine Leukocytes Positive [facility] Urine Non-Hemolyzed Blood Negative [facility] Basophil percentageon 2021 Bilirubin [Mass/Vol] 0.40 mg/dL 0.20-1.00 [facility] Work Phone: Comment on above: For patients on eltr ombopag therapy, use of Dimension [place] TBIL is not recommended. Chloride [Moles/Vol] 110 mmol/L 98-107 [facility] Work Phone: Cholesterol [Mass/Vol] 276 mg/dL <200 [facility] Work Phone: Comment on above: <200 mg/dL Desirable 200-240 mg/dL Borderline >240 mg/dL High Risk Glucose [Mass/Vol] 94 mg/dL 74-106 [facility] Work Phone: Potassium [Moles/Vol] 3.7 mmol/L 3.5-5.1 [facility] Work [facility]: [phone] Protein [Mass/Vol] 6.6 g/dL 6.4-8.2 [facility] Work Phone: [phone] Sodium [Moles/Vol] 141 mmol/L 136-145 [facility] Work Phone: [phone] Triglyceride [Mass/Vol] 73 mg/dL <199 [facility] Work Phone: [phone] Comment on above: The drugs N-Acetylcy steine and Metamizole may falsely depress this assay.Serum Triglycerides Reference Interval Normal <150 mg/dL Borderline high 150 - 199 mg/dL High 200 - 499 mg/dL Very High > or = 500 mg/dL Laboratory - Chemistry and C hemistry - challengeon 12-15-2021 ALP [Catalytic activity/Vol] 88 U/L 45-117 [facility] Work Phone: ALT [Catalytic activity/Vol] 20 U/L 13-56 [facility] Work Phone: [phone] CO2 [Moles/Vol] 25.0 mmol/L 21.0-32.0 [facility] Work Phone: [phone] Globulin (S) [Mass/Vol] 3.3 g/dL 2.2-4.2 [facility] Work Phone: [phone] Urea nitrogen/Creatinine [Mass ratio] 9.9 mg/mg 10-20 [facility] Work Phone: No Panel Informationon 12-15 Estimated GFR (MDRD) Amer 91 mL/min >60 [facility] Work Phone: [phone] Comment on above: GFR Calc Estimated GFR (MDRD) Non-Af Amer 76 mL/min >60 [facility] Work Phone: [phone] Comment on above: Non- GFR Calc Serum or plasma albumin aida urement (mass/volume)on 12-15-2021 Albumin [Mass/Vol] 3.3 g/dL 3.2-5.0 [facility] Work Phone: [phone] Serum or plasma albumin/glob ulin mass ratioon 12-15-2021 Albumin/Globulin [Mass ratio] 1.0 {ratio} 0.9-2.4 [facility] Work Phone: Serum or plasma calcium aida urement (mass/volume)on 12-15-2021 Calcium [Mass/Vol] 9.0 mg/dL 8.5-10.1 [facility] Work Phone: Serum or plasma cholesterol in HDL measurement (mass/volume)on 12-15-2021 Cholesterol in HDL [Mass/Vol] 57 mg/dL >40 [facility] Work Phone: Comment on above: The drugs N-Acetylcy steine and Metamizole may falsely depress this assay. Reference Range HDL <40 mg/dL Low HDL Cholesterol HDL >or= 60 mg/dL High HDL Cholesterol Serum or plasma cholesterol in VLDL measurement (mass/volume)on 12-15-2021 Cholesterol in VLDL [Mass/Vol] 15 mg/dL 5-40 [facility] Work Phone: Serum or plasma creatinine m easurement (mass/volume)on 12-15-2021 Creatinine [Mass/Vol] 0.80 mg/dL 0.55-1.02 [facility] Work Phone: Comment on above: The validity of the calculated GFR & GFRAA in patients over 70 years has not been determined. Clinical correlation is essential. Serum or plasma low density lipoprotein (LDL) cholesterol measurement (mass/volume)on 12-15-2021 Cholesterol in LDL [Mass/Vol] 204 mg/dL 0-130 [facility] Work Phone: Serum or plasma urea nitroge n measurement (mass/volume)on 12-15-2021 Urea nitrogen [Mass/Vol] 8 mg/dL 7-18 [facility] Work Phone: [phone] Thin prep Papanicolaou smear with manual screeningon 12-15-2021 Thin prep Papanicolaou smear with manual screening 15 U/L 15-37 [facility] Work Phone: Thin prep Papanicolaou smear with manual screening 6 5-15 [facility] Work Phone: Laboratory - Chemistry and C hemistry - challengeon 11-09-2021 Bilirubin Ql (U) Negative [facility] Work Phone: Glucose Ql (U) Negative [facility] Work Phone: Ketones Ql (U) Small (15+) [facility] Work Phone: pH (U) 5.0 [pH] [facility] Work Phone: Specific gravity (U) [Rel density] 1.030 [facility] Work Phone: Urobilinogen (U) [Mass/Vol] Negative [facility] Work Phone: Laboratory - Hematology and Cell countson 11-09-2021 Hemoglobin Ql (U) Hemolyzed [facility] Work Phone: Laboratory - Specimen inform ationon 11-09-2021 Clarity (U) Cloudy [facility] Work Phone: Color (U) AYAH [facility] Work Phone: Laboratory - Urinalysison Nitrite Ql (U) Negative [facility] Work Phone: Protein Ql (U) Negative [facility] Work Phone: No Panel Informationon 11-09 Urine Leukocytes Positive [facility] Work Phone: Urine Non-Hemolyzed Blood Small [facility] Work Phone: No Panel Informationon 04-06 POC SARS CoV-2 Antigen Positive [facility] Work Phone: Basophil percentageon 2020 Basophil percentage 0-5 SEEN /hpf [facility] Work Phone: Bilirubin Test strip Ql (U)o n 04-04-2021 Bilirubin Ql (U) Negative Negative [facility] Work Phone: Ketones Test strip Ql (U)on 04-04-2021 Ketones Ql (U) 5 mg/dl Negative [facility] Work Phone: Mucus LM Ql (Urine sed)on Mucus Ql (Urine sed) 0 SEEN /hpf [facility] Work Phone: Nitrite Test strip Ql (U)on 04-04-2021 Nitrite Ql (U) Negative Negative [facility] Work Phone: Protein Test strip Ql (U)on 04-04-2021 Protein Ql (U) 30 mg/dl Negative [facility] Work Phone: Squamous epithelial cells de tection in urine sediment by light microscopyon 04-04-2021 Epithelial cells.squamous LM Ql (Urine sed) 0-5 SEEN /hpf [facility] Work Phone: Urine blood detectionon 03-10 RBC Ql (U) 10 /ul Negative [facility] Work Phone: RBC Ql (U) 0 SEEN /hpf [facility] Work Phone: Urine clarityon 04-04-2021 Clarity (U) Sl. Cloudy Clear [facility] Work Phone: Urine color determinationon 04-04-2021 Color (U) Yellow Yellow [facility] Work Phone: Urine glucose detectionon Glucose Ql (U) Normal mg/dl Normal [facility] Work Phone: Urine leukocyte esterase det ection by dipstickon 04-04-2021 Leukocyte esterase Test strip Ql (U) 100 /ul Negative [facility] Work Phone: Urine pHon 04-04-2021 pH (U) 5.0 [pH] [facility] Work Phone: Urine sediment bacteria coun t by microscopy (number/high power field)on 04-04-2021 Bacteria LM.HPF (Urine sed) [#/Area] RARE /hpf None Seen [facility] Work Phone: Urine specific gravity measu rementon 04-04-2021 Specific gravity (U) [Rel density] 1.025 [facility] Work Phone: Urobilinogen Auto test strip Ql (U)on 04-04-2021 Urobilinogen Ql (U) 1 mg[facility]: UC: UTIon 08-0 Albumin Ql (U) trace [facility] Work Phone: Appearance Nom (U) clear [facility] Work Phone: Bilirubin Ql (U) Negative [facility] Work Phone: Color Nom (U) yellow [facility] Work Phone: Fall risk assessment No [facility] Work Phone: Glucose Test strip mass conc (U) Negative [facility] Work Phone: Ketones mass conc (U) Negative [facility] Work Phone: Leukocyte esterase Test strip Ql (U) 2+ [facility] Work Phone: Nitrite Ql (U) Negative [facility] Work Phone: pH (U) 5.0 [pH] [facility] Work Phone: Protein mass conc Done [facility] Work Phone: Specific gravity Refractometry Relative Density (U) 1.030 [facility] Work Phone: Tobacco smoking status NHIS Never [facility] Work Phone: Tobacco smoking status NHIS Former smoker [facility] Work Phone: Urobilinogen Test strip Ql (U) Negative [facility] Work Phone: Office Visit: UC: UTI?on Fall risk assessment No [facility] Work Phone: Protein mass conc Done [facility] Work Phone: Tobacco smoking status NHIS Former smoker [facility] Work Phone: Tobacco smoking status NHIS Never [facility] Work Phone: Office Visit: COPD and OSAon 09-20-2016 Dietary management education, guidance, and counseling (procedure) yes Invalid Interpretation Code [facility] Work Phone: Documentation of current medications (procedure) Done Invalid Interpretation Code [facility] Work Phone: Protein mass conc Done [facility] Work Phone: Tobacco smoking status NHIS Never Invalid Interpretation Code [facility] Work Phone: Tobacco smoking status LAIS Former smoker [facility] Work Phone: Tobacco use [facility] Former smoker Invalid Interpretation Code [facility] Work Phone: 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 Left ventricular Ejection fraction 60 % [facility] Work Phone: Office Visit: OSAon 02-03-20 16 Protein mass conc Done [facility] Work Phone: Tobacco smoking status NHIS Never [facility] Work Phone: Tobacco smoking status LAIS Former smoker [facility] Work Phone: Replaced Document: Susan BATISTA Observationson 12-30-2015 EKG QRS axis 58 deg [facility] Work Phone: electrocardiogram interpretation Sinus Rhythm WITHIN NORMAL LIMITS Invalid Interpretation Code [facility] Work Phone: [phone] GE use only - for [employer] import when terms are not otherwise specified 405 ms Invalid Interpretation Code [facility] Work Phone: Interpretation Sinus Rhythm WITHIN NORMAL LIMITS [facility] Work Phone: P [place] 64 deg [facility] Work Phone: P wave axis, electrocardiogram 64 deg Invalid Interpretation Code [facility] Work Phone: [place] Interval 132 ms [facility] Work Phone: [place] interval, electrocardiogram 132 ms Invalid Interpretation Code [facility] Work Phone: [phone] Pulse (Heart Rate) 62 /min Invalid Interpretation Code [facility] Work Phone: [phone] QRS axis, electrocardiogram 58 deg Invalid Interpretation Code [facility] Work Phone: [phone] QRS Duration 87 ms [facility] Work Phone: [phone] QRS duration, electrocardiogram 87 ms Invalid Interpretation Code [facility] Work Phone: [phone] QT Interval new path ms [facility] Work Phone: QT interval, electrocardiogram new path ms Invalid Interpretation Code [facility] Work Phone: [phone] QTc Dennis 405 ms [facility] Work Phone: T [place] 37 deg [facility] Work Phone: T wave axis, electrocardiogram 37 deg Invalid Interpretation Code [facility] Work Phone: [phone] 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 11-18-2015 ALT enzyme act/vol 18 U/L [facility] Work Phone: [phone] AST enzyme act/vol 11 U/L [facility] Work Phone: Bilirubin mass conc 0.30 mg/dL [facility] Work Phone: [phone] Calcium mass conc 9.0 mg/dL [facility] Work Phone: [phone] Chloride molar conc 108 mmol/L [facility] Work Phone: [phone] Cholesterol in HDL mass conc 71 mg/dL [facility] Work Phone: [phone] Cholesterol in LDL mass conc 174 mg/dL [facility] Work Phone: [phone] Cholesterol mass conc 266 mg/dL [facility] Work Phone: [phone] CO2 24.0 mmol/L Invalid Interpretation Code [facility] Work Phone: [phone] CO2 ppres (BldV) 24.0 mmol/L [facility] Work Phone: [phone] Creatinine mass conc 0.77 mg/dL [facility] Work Phone: [phone] Glucose 122 mg/dL Invalid Interpretation Code [facility] Work Phone: [phone] Glucose mass conc 122 mg/dL [facility] Work Phone: [phone] Hematocrit (HCT) 40.2 % Invalid Interpretation Code [facility] Work Phone: [phone] Hematocrit Volume Fraction (Bld) 40.2 % [facility] Work Phone: [phone] Hemoglobin mass conc (Bld) 13.6 g/dL [facility] Work Phone: [phone] Platelets 382 10*3/mm3 Invalid Interpretation Code [facility] Work Phone: [phone] Platelets #/vol (Bld) 382 10*3/mm3 [facility] Work Phone: [phone] Potassium molar conc 3.8 mmol/L [facility] Work Phone: [phone] Protein mass conc 7.4 g/dL [facility] Work Phone: [phone] Sodium molar conc 139 mmol/L [facility] Work Phone: [phone] Thyrotropin Qn 1.51 u[iU]/mL [facility] Work Phone: [phone] Triglyceride mass conc 104 mg/dL [facility] Work Phone: [phone] Urea nitrogen/Creatinine mass ratio 11.7 mg/mg [facility] Work Phone: [phone] WBC #/vol (Bld) 7.8 10*3/uL [facility] Work Phone: [phone] WBC (Leukocytes) 7.8 10*3/uL Invalid Interpretation Code [facility] Work Phone: Culture, urine Bacteria identified Cx Nom (U) Klebsiella pneumoniae sp pneum [facility] Work Phone: Vital Signs Date Time Vital Sign Value Performing Clinician Facility 01-20-2025 08:24-0400 Body mass index (BMI) [Ratio] 36.5 kg/m2 Dr. Naomi Whyte DO Work Phone: [facility] 01-20-2025 08:24-0400 Body temperature 96.9 [degF] Dr. Naomi Whyte DO Work Phone: [facility] 01-20-2025 08:24-0400 Body weight 93.[address] Naomi Whyte DO Work Phone: [facility] 01-20-2025 08:24-0400 Diastolic blood pressure 81 mm[Hg] Dr. Naomi Whyte DO Work Phone: [facility] 01-20-2025 08:24-0400 Heart rate 92 /min Dr. Naomi Whyte DO Work Phone: [facility] 01-20-2025 08:24-0400 Respiratory rate 18 /min Dr. Naomi Whyte DO Work Phone: [facility] 01-20-2025 08:24-0400 SaO2% (BldA) [Mass fraction] 97 % Dr. Naomi Whyte DO Work Phone: [facility] 01-20-2025 08:24-0400 Systolic blood pressure 127 mm[Hg] Dr. Naomi Whyte DO Work Phone: [facility] 01-16-2025 13:00-0400 Body temperature 96.9 [degF] Dr. Naomi Whyte DO Work Phone: [facility] 01-16-2025 13:00-0400 Diastolic blood pressure 59 mm[Hg] Dr. Naomi Whyte DO Work Phone: [facility] 01-16-2025 13:00-0400 Heart rate 70 /min Dr. Naomi Whyte DO Work Phone: [facility] 01-16-2025 13:00-0400 Respiratory rate 16 /min Dr. Naoim Whyte DO Work Phone: [facility] 01-16-2025 13:00-0400 SaO2% (BldA) [Mass fraction] 97 % Dr. Naomi Whyte DO Work Phone: [facility] 01-16-2025 13:00-0400 Systolic blood pressure 118 mm[Hg] Dr. Naomi Whyte DO Work Phone: [facility] 12-24-2024 23:43-0400 Body temperature 98.8 [degF] Dr. Naomi Whyte DO Work Phone: [facility] 12-24-2024 23:43-0400 Diastolic blood pressure 72 mm[Hg] Dr. Naomi Whyte DO Work Phone: [facility] 12-24-2024 23:43-0400 Heart rate 81 /min Dr. Naomi Whyte DO Work Phone: [facility] 12-24-2024 23:43-0400 Respiratory rate 12 /min Dr. Naomi Whyte DO Work Phone: [facility] 12-24-2024 23:43-0400 SaO2% (BldA) [Mass fraction] 95 % Dr. Naomi Whyte DO Work Phone: [facility] 12-24-2024 23:43-0400 Systolic blood pressure 126 mm[Hg] Dr. Naomi Whyte DO Work Phone: [facility] 12-24-2024 21:05-0400 Body height 160.[address] Naomi Whyte DO Work Phone: [facility] 12-24-2024 21:05-0400 Body mass index (BMI) [Ratio] 37.8 kg/m2 Dr. Naomi Whyte DO Work Phone: [facility] 12-24-2024 21:05-0400 Body weight 97.[address] Naomi Whyte DO Work Phone: [facility] 11-14-2024 13:05-0400 Body height 160.[address] Naomi Whyte DO Work Phone: [facility] 11-14-2024 13:05-0400 Body mass index (BMI) [Ratio] 36.6 kg/m2 Dr. Naomi Whyte DO Work Phone: [facility] 11-14-2024 13:05-0400 Body temperature 96.3 [degF] Dr. Naomi Whyte DO Work Phone: [facility] 11-14-2024 13:05-0400 Body weight 93.[address] Naomi Whyte DO Work Phone: [facility] 11-14-2024 13:05-0400 Diastolic blood pressure 57 mm[Hg] Dr. Naomi Whyte DO Work Phone: [facility] 11-14-2024 13:05-0400 Heart rate 98 /min Dr. Naomi Whyte DO Work Phone: [facility] 11-14-2024 13:05-0400 Respiratory rate 18 /min Dr. Naomi Whyte DO Work Phone: [facility] 11-14-2024 13:05-0400 SaO2% (BldA) [Mass fraction] 93 % Dr. Naomi Whyte DO Work Phone: [facility] 11-14-2024 13:05-0400 Systolic blood pressure 101 mm[Hg] Dr. Naomi Whyte DO Work Phone: [facility] 10-17-2024 13:24-0400 Body height 160.[address] Naomi Whyte DO Work Phone: [facility] 10-17-2024 13:24-0400 Body mass index (BMI) [Ratio] 37.2 kg/m2 Dr. Naomi Whyte DO Work Phone: [facility] 10-17-2024 13:24-0400 Body temperature 96.3 [degF] Dr. Naomi Whyte DO Work Phone: [facility] 10-17-2024 13:24-0400 Body weight 95.[address] Naomi Whyte DO Work Phone: [facility] 10-17-2024 13:24-0400 Diastolic blood pressure 80 mm[Hg] Dr. Naomi Whyte DO Work Phone: [facility] 10-17-2024 13:24-0400 Heart rate 71 /min Dr. Naomi Whyte DO Work Phone: [facility] 10-17-2024 13:24-0400 Respiratory rate 16 /min Dr. Naomi Whyte DO Work Phone: [facility] 10-17-2024 13:24-0400 SaO2% (BldA) [Mass fraction] 91 % Dr. Naomi Whyte DO Work Phone: [facility] 10-17-2024 13:24-0400 Systolic blood pressure 136 mm[Hg] Dr. Naomi Whyte DO Work Phone: [facility] 09-10-2024 14:39-0400 Body height 160.[address] Naomi Whyte DO Work Phone: [facility] 09-10-2024 14:39-0400 Body mass index (BMI) [Ratio] 36.6 kg/m2 Dr. Naomi Whyte DO Work Phone: [facility] 09-10-2024 14:39-0400 Body temperature 96.8 [degF] Dr. Naomi Whyte DO Work Phone: [facility] 09-10-2024 14:39-0400 Body weight 93.[address] Naomi Whyte DO Work Phone: [facility] 09-10-2024 14:39-0400 Diastolic blood pressure 61 mm[Hg] Dr. Naomi Whyte DO Work Phone: [facility] 09-10-2024 14:39-0400 Heart rate 66 /min Dr. Naomi Whyte DO Work Phone: [facility] 09-10-2024 14:39-0400 Respiratory rate 16 /min Dr. Naomi Whyte DO Work Phone: [facility] 09-10-2024 14:39-0400 SaO2% (BldA) [Mass fraction] 95 % Dr. Naomi Whyte DO Work Phone: [facility] 09-10-2024 14:39-0400 Systolic blood pressure 154 mm[Hg] Dr. Naomi Whyte DO Work Phone: [facility] 09-10-2024 08:24-0400 Body mass index (BMI) [Ratio] 36.6 kg/m2 Dr. Naomi Whyte DO Work Phone: [facility] 09-10-2024 08:24-0400 Body temperature 97.4 [degF] Dr. Naomi Whyte DO Work Phone: [facility] 09-10-2024 08:24-0400 Body weight 93.[address] Naomi Whyte DO Work Phone: [facility] 09-10-2024 08:24-0400 Diastolic blood pressure 81 mm[Hg] Dr. Naomi Whyte DO Work Phone: [facility] 09-10-2024 08:24-0400 Heart rate 86 /min Dr. Naomi Whyte DO Work Phone: [facility] 09-10-2024 08:24-0400 Respiratory rate 20 /min Dr. Naomi Whyte DO Work Phone: [facility] 09-10-2024 08:24-0400 SaO2% (BldA) [Mass fraction] 95 % Dr. Naomi Whyte DO Work Phone: [facility] 09-10-2024 08:24-0400 Systolic blood pressure 128 mm[Hg] Dr. Naomi Whyte DO Work Phone: [facility] 07-04-2024 11:36-0400 Body height 160.[address] Naomi Whyte DO Work Phone: [facility] 07-04-2024 11:36-0400 Body mass index (BMI) [Ratio] 36.1 kg/m2 Dr. Naomi Whyte DO Work Phone: [facility] 07-04-2024 11:36-0400 Body temperature 96.5 [degF] Dr. Naomi Whyte DO Work Phone: [facility] 07-04-2024 11:36-0400 Body weight 92.[address] Naomi Whyte DO Work Phone: [facility] 07-04-2024 11:36-0400 Diastolic blood pressure 68 mm[Hg] Dr. Naomi Whyte DO Work Phone: [facility] 07-04-2024 11:36-0400 Heart rate 77 /min Dr. Naomi Whyte DO Work Phone: [facility] 07-04-2024 11:36-0400 Respiratory rate 16 /min Dr. Naomi Whyte DO Work Phone: [facility] 07-04-2024 11:36-0400 SaO2% (BldA) [Mass fraction] 94 % Dr. Naomi Whyte DO Work Phone: [facility] 07-04-2024 11:36-0400 Systolic blood pressure 110 mm[Hg] Dr. Naomi Whyte DO Work Phone: [facility] 04-25-2024 12:27-0500 Body mass index (BMI) [Ratio] 35.4 kg/m2 Dr. Naomi Whyte DO Work Phone: [facility] 04-25-2024 12:27-0500 Body temperature 97.8 [degF] Dr. Naomi Whyte DO Work Phone: [facility] 04-25-2024 12:27-0500 Body weight 90.[address] Naomi Whyte DO Work Phone: [facility] 04-25-2024 12:27-0500 Diastolic blood pressure 75 mm[Hg] Dr. Naomi Whyte DO Work Phone: [facility] 04-25-2024 12:27-0500 Heart rate 93 /min Dr. Naomi Whyte DO Work Phone: [facility] 04-25-2024 12:27-0500 Respiratory rate 18 /min Dr. Naomi Whyte DO Work Phone: [facility] 04-25-2024 12:27-0500 SaO2% (BldA) [Mass fraction] 98 % Dr. Naomi Whyte DO Work Phone: [facility] 04-25-2024 12:27-0500 Systolic blood pressure 141 mm[Hg] Dr. Naomi hWyte DO Work Phone: [facility] 03-21-2024 12:13-0500 Body temperature 97.2 [degF] Dr. Naomi Whyte DO Work Phone: [facility] 03-21-2024 12:13-0500 Diastolic blood pressure 80 mm[Hg] Dr. Naomi Whyte DO Work Phone: [facility] 03-21-2024 12:13-0500 Heart rate 89 /min Dr. Naomi Whyte DO Work Phone: [facility] 03-21-2024 12:13-0500 Respiratory rate 16 /min Dr. Naomi Whyte DO Work Phone: [facility] 03-21-2024 12:13-0500 SaO2% (BldA) [Mass fraction] 98 % Dr. Naomi Whyte DO Work Phone: [facility] 03-21-2024 12:13-0500 Systolic blood pressure 136 mm[Hg] Dr. Naomi Whyte DO Work Phone: [facility] 03-12-2024 07:42-0500 Body mass index (BMI) [Ratio] 35.4 kg/m2 Dr. Naomi Whyte DO Work Phone: [facility] 03-12-2024 07:42-0500 Body temperature 95.3 [degF] Dr. Naomi Whyte DO Work Phone: [facility] 03-12-2024 07:42-0500 Body weight 90.[address] Naomi Whyte DO Work Phone: [facility] 03-12-2024 07:42-0500 Diastolic blood pressure 80 mm[Hg] Dr. Naomi Whyte DO Work Phone: [facility] 03-12-2024 07:42-0500 Heart rate 72 /min Dr. Naomi Whyte DO Work Phone: [facility] 03-12-2024 07:42-0500 Respiratory rate 20 /min Dr. Naomi Whyte DO Work Phone: [facility] 03-12-2024 07:42-0500 SaO2% (BldA) [Mass fraction] 97 % Dr. Naomi Whyte DO Work Phone: [facility] 03-12-2024 07:42-0500 Systolic blood pressure 127 mm[Hg] Dr. Naomi Whyte DO Work Phone: [facility] 08-15-2023 13:38-0400 Body height 160.[address] Kamilah Patel Work Phone: [facility] 08-15-2023 13:38-0400 Body temperature 97.4 [degF] Dr. Kamilah Patel Work Phone: [facility] 08-15-2023 13:38-0400 Diastolic blood pressure 68 mm[Hg] Dr. Kamilah Patel Work Phone: [facility] 08-15-2023 13:38-0400 Heart rate 89 /min Dr. Kamilah Patel Work Phone: [facility] 08-15-2023 13:38-0400 Respiratory rate 16 /min Dr. Kamilah Patel Work Phone: [facility] 08-15-2023 13:38-0400 SaO2% (BldA) [Mass fraction] 96 % Dr. Kamilah Patel Work Phone: [facility] 08-15-2023 13:38-0400 Systolic blood pressure 113 mm[Hg] Dr. Kamilah Patel Work Phone: [facility] 08-02-2023 07:57-0400 Body mass index (BMI) [Ratio] 33.8 kg/m2 Dr. Kamilah Patel Work Phone: [facility] 08-02-2023 07:57-0400 Body temperature 98.4 [degF] Dr. Kamilah Patel Work Phone: [facility] 08-02-2023 07:57-0400 Body weight 86.[address] Kamilah Patel Work Phone: [facility] 08-02-2023 07:57-0400 Diastolic blood pressure 74 mm[Hg] Dr. Kamilah Patel Work Phone: [facility] 08-02-2023 07:57-0400 Heart rate 75 /min Dr. Kamilah Patel Work Phone: [facility] 08-02-2023 07:57-0400 SaO2% (BldA) [Mass fraction] 95 % Dr. Kamilah Patel Work Phone: [facility] 08-02-2023 07:57-0400 Systolic blood pressure 113 mm[Hg] Dr. Kamilah Patle Work Phone: [facility] 06-15-2023 12:37-0500 Body height 160.[address] Kamilah Patel Work Phone: [facility] 06-15-2023 12:37-0500 Body mass index (BMI) [Ratio] 33.6 kg/m2 Dr. Kamilah Patel Work Phone: [facility] 06-15-2023 12:37-0500 Body temperature 97 [degF] Dr. Kamilah Patel Work Phone: [facility] 06-15-2023 12:37-0500 Body weight 86.[address] Kamilah Patel Work Phone: [facility] 06-15-2023 12:37-0500 Diastolic blood pressure 65 mm[Hg] Dr. Kamilah Patel Work Phone: [facility] 06-15-2023 12:37-0500 Heart rate 77 /min Dr. Kamilah Patel Work Phone: [facility] 06-15-2023 12:37-0500 Respiratory rate 14 /min Dr. Kamilah Patel Work Phone: [facility] 06-15-2023 12:37-0500 SaO2% (BldA) [Mass fraction] 96 % Dr. Kamilah Patel Work Phone: [facility] 06-15-2023 12:37-0500 Systolic blood pressure 110 mm[Hg] Dr. Kamilah Patel Work Phone: [facility] 05-18-2023 12:30-0500 Body height 160.[address] Kamilah Patel Work Phone: [facility] 05-18-2023 12:30-0500 Body mass index (BMI) [Ratio] 33.6 kg/m2 Dr. Kamilah Patel Work Phone: [facility] 05-18-2023 12:30-0500 Body temperature 97.6 [degF] Dr. Kamilah Patel Work Phone: [facility] 05-18-2023 12:30-0500 Body weight 86.[address] Kamilah Patel Work Phone: [facility] 05-18-2023 12:30-0500 Diastolic blood pressure 77 mm[Hg] Dr. Kamilah Patel Work Phone: [facility] 05-18-2023 12:30-0500 Heart rate 78 /min Dr. Kamilah Patel Work Phone: [facility] 05-18-2023 12:30-0500 Respiratory rate 16 /min Dr. Kamilah Patel Work Phone: [facility] 05-18-2023 12:30-0500 SaO2% (BldA) [Mass fraction] 98 % Dr. Kamilah Patel Work Phone: [facility] 05-18-2023 12:30-0500 Systolic blood pressure 124 mm[Hg] Dr. Kamilah Patel Work Phone: [facility] 05-16-2023 08:00-0500 Body mass index (BMI) [Ratio] 33.8 kg/m2 Dr. Kamilah Patel Work Phone: [facility] 05-16-2023 08:00-0500 Body temperature 98.7 [degF] Dr. Kamilah Patel Work Phone: [facility] 05-16-2023 08:00-0500 Body weight 86.[address] Kamilah Patel Work Phone: [facility] 05-16-2023 08:00-0500 Diastolic blood pressure 62 mm[Hg] Dr. Kamilah Patel Work Phone: [facility] 05-16-2023 08:00-0500 Heart rate 92 /min Dr. Kamilah Patel Work Phone: [facility] 05-16-2023 08:00-0500 Respiratory rate 16 /min Dr. Kamilah Patel Work Phone: [facility] 05-16-2023 08:00-0500 SaO2% (BldA) [Mass fraction] 96 % Dr. Kamilah Patel Work Phone: [facility] 05-16-2023 08:00-0500 Systolic blood pressure 130 mm[Hg] Dr. Kamilah Patel Work Phone: [facility] 04-20-2023 13:17-0500 Body height 160.[address] Kamilah Patel Work Phone: [facility] 04-20-2023 13:17-0500 Body mass index (BMI) [Ratio] 32.8 kg/m2 Dr. Kamilah Patel Work Phone: [facility] 04-20-2023 13:17-0500 Body temperature 97.3 [degF] Dr. Kamilah Patel Work Phone: [facility] 04-20-2023 13:17-0500 Body weight 83.[address] Kamilah Patel Work Phone: [facility] 04-20-2023 13:17-0500 Diastolic blood pressure 64 mm[Hg] Dr. Kamilah Patel Work Phone: [facility] 04-20-2023 13:17-0500 Heart rate 73 /min Dr. Kamilah Patel Work Phone: [facility] 04-20-2023 13:17-0500 Respiratory rate 16 /min Dr. Kamilah Patel Work Phone: [facility] 04-20-2023 13:17-0500 SaO2% (BldA) [Mass fraction] 96 % Dr. Kamilah Patel Work Phone: [facility] 04-20-2023 13:17-0500 Systolic blood pressure 122 mm[Hg] Dr. Kamilah Patel Work Phone: [facility] 04-20-2023 12:32-0500 Body mass index (BMI) [Ratio] 32.8 kg/m2 Dr. Kamilah Patel Work Phone: [facility] 04-20-2023 12:32-0500 Body temperature 97.3 [degF] Dr. Kamilah Patel Work Phone: [facility] 04-20-2023 12:32-0500 Body weight 83.[address] Kamilah Patel Work Phone: [facility] 04-20-2023 12:32-0500 Diastolic blood pressure 71 mm[Hg] Dr. Kamilah Patel Work Phone: [facility] 04-20-2023 12:32-0500 Heart rate 90 /min Dr. Kamilah Patel Work Phone: [facility] 04-20-2023 12:32-0500 Respiratory rate 18 /min Dr. Kamilah Patel Work Phone: [facility] 04-20-2023 12:32-0500 SaO2% (BldA) [Mass fraction] 94 % Dr. Kamilah Patel Work Phone: [facility] 04-20-2023 12:32-0500 Systolic blood pressure 117 mm[Hg] Dr. Kamilah Patel Work Phone: [facility] 02-23-2023 13:08-0500 Body height 160.[address] Kaimlah Patel Work Phone: [facility] 02-23-2023 13:08-0500 Body temperature 97.6 [degF] Dr. Kamilah Patel Work Phone: [facility] 02-23-2023 13:08-0500 Diastolic blood pressure 57 mm[Hg] Dr. Kamilah Patel Work Phone: [facility] 02-23-2023 13:08-0500 Heart rate 64 /min Dr. Kamilah Patel Work Phone: [facility] 02-23-2023 13:08-0500 Respiratory rate 16 /min Dr. Kamilah Patel Work Phone: [facility] 02-23-2023 13:08-0500 SaO2% (BldA) [Mass fraction] 98 % Dr. Kamilah Patel Work Phone: [facility] 02-23-2023 13:08-0500 Systolic blood pressure 103 mm[Hg] Dr. Kamilah Patel Work Phone: [facility] 2023 11:59-0400 Body mass index (BMI) [Ratio] 32.4 kg/m2 Dr. Kamilah Patel Work Phone: [facility] 2023 11:59-0400 Body temperature 94.6 [degF] Dr. Kamilah Patel Work Phone: [facility] 2023 11:59-0400 Body weight [address] Kamilah Patel Work Phone: [facility] 2023 11:59-0400 Diastolic blood pressure 74 mm[Hg] Dr. Kamilah Patel Work Phone: [facility] 2023 11:59-0400 Heart rate 75 /min Dr. Kamilah Patel Work Phone: [facility] 2023 11:59-0400 Respiratory rate 18 /min Dr. Kamilah Patel Work Phone: [facility] 2023 11:59-0400 SaO2% (BldA) [Mass fraction] 98 % Dr. Kamilah Patel Work Phone: [facility] 2023 11:59-0400 Systolic blood pressure 114 mm[Hg] Dr. Kamilah Patel Work Phone: [facility] 01-26-2023 13:19-0400 Body height 160.02 cm [facility] 01-26-2023 13:19-0400 Body mass index (BMI) [Ratio] 32.4 kg/m2 [facility] 01-26-2023 13:19-0400 Body temperature 97 [degF] [facility] 01-26-2023 13:19-0400 Body weight 83 kg [facility] 01-26-2023 13:19-0400 Diastolic blood pressure 75 mm[Hg] [facility] 01-26-2023 13:19-0400 Heart rate 83 /min [facility] 01-26-2023 13:19-0400 Respiratory rate 18 /min [facility] 01-26-2023 13:19-0400 SaO2% (BldA) [Mass fraction] 93 % [facility] 01-26-2023 13:19-0400 Systolic blood pressure 120 mm[Hg] [facility] 12-29-2022 13:09-0400 Body height 160.02 cm [facility] 12-29-2022 13:09-0400 Body temperature 96.8 [degF] [facility] 12-29-2022 13:09-0400 Diastolic blood pressure 57 mm[Hg] [facility] 12-29-2022 13:09-0400 Heart rate 75 /min [facility] 12-29-2022 13:09-0400 Respiratory rate 16 /min [facility] 12-29-2022 13:09-0400 SaO2% (BldA) [Mass fraction] 95 % [facility] 12-29-2022 13:09-0400 Systolic blood pressure 110 mm[Hg] [facility] 12-15-2022 09:38-0400 Diastolic blood pressure 70 mm[Hg] [facility] 12-15-2022 09:38-0400 Heart rate 99 /min [facility] 12-15-2022 09:38-0400 Respiratory rate 20 /min [facility] 12-15-2022 09:38-0400 SaO2% (BldA) [Mass fraction] 99 % [facility] 12-15-2022 09:38-0400 Systolic blood pressure 119 mm[Hg] [facility] 12-15-2022 07:23-0400 Body temperature 98 [degF] [facility] 12-15-2022 07:11-0400 Body height 160.02 cm [facility] 12-15-2022 07:11-0400 Body mass index (BMI) [Ratio] 33.6 kg/m2 [facility] 12-15-2022 07:11-0400 Body weight 86.09 kg [facility] 12-01-2022 13:54-0400 Body height 160.02 cm [facility] 12-01-2022 13:54-0400 Body mass index (BMI) [Ratio] 33.1 kg/m2 [facility] 12-01-2022 13:54-0400 Body temperature 96.7 [degF] [facility] 12-01-2022 13:54-0400 Body weight 84.82 kg [facility] 12-01-2022 13:54-0400 Diastolic blood pressure 53 mm[Hg] [facility] 12-01-2022 13:54-0400 Heart rate 76 /min [facility] 12-01-2022 13:54-0400 Respiratory rate 16 /min [facility] 12-01-2022 13:54-0400 SaO2% (BldA) [Mass fraction] 92 % [facility] 12-01-2022 13:54-0400 Systolic blood pressure 100 mm[Hg] [facility] 11-02-2022 15:11-0400 Body mass index (BMI) [Ratio] 32.8 kg/m2 [facility] 11-02-2022 15:11-0400 Body temperature 96.2 [degF] [facility] 11-02-2022 15:11-0400 Body weight 83.91 kg [facility] 11-02-2022 15:11-0400 Diastolic blood pressure 70 mm[Hg] [facility] 11-02-2022 15:11-0400 Heart rate 84 /min [facility] 11-02-2022 15:11-0400 Respiratory rate 18 /min [facility] 11-02-2022 15:11-0400 SaO2% (BldA) [Mass fraction] 95 % [facility] 11-02-2022 15:11-0400 Systolic blood pressure 113 mm[Hg] [facility] 09-28-2022 12:57-0400 Body height 160.[address] Kamilah Patel Work Phone: [facility] 09-28-2022 12:57-0400 Body temperature 97.1 [degF] Dr. Kamilah Patel Work Phone: [facility] 09-28-2022 12:57-0400 Diastolic blood pressure 63 mm[Hg] Dr. Kamilah Patel Work Phone: [facility] 09-28-2022 12:57-0400 Heart rate 64 /min Dr. Kamilah Patel Work Phone: [facility] 09-28-2022 12:57-0400 Respiratory rate 16 /min Dr. Kamilah Patel Work Phone: [facility] 09-28-2022 12:57-0400 SaO2% (BldA) [Mass fraction] 97 % Dr. Kamilah Patel Work Phone: [facility] 09-28-2022 12:57-0400 Systolic blood pressure 117 mm[Hg] Dr. Kamilah Patel Work Phone: [facility] 08-24-2022 13:57-0400 Body mass index (BMI) [Ratio] 31.5 kg/m2 Dr. Kamilah Patel Work Phone: [facility] 08-24-2022 13:57-0400 Body temperature 97.8 [degF] Dr. Kamilah Patel Work Phone: [facility] 08-24-2022 13:57-0400 Body weight 80.[address] Kamilah Patel Work Phone: [facility] 08-24-2022 13:57-0400 Diastolic blood pressure 62 mm[Hg] Dr. Kamilah Patel Work Phone: [facility] 08-24-2022 13:57-0400 Heart rate 68 /min Dr. Kamilah Patel Work Phone: [facility] 08-24-2022 13:57-0400 Respiratory rate 16 /min Dr. Kamilah Patel Work Phone: [facility] 08-24-2022 13:57-0400 SaO2% (BldA) [Mass fraction] 98 % Dr. Kamilah Patel Work Phone: [facility] 08-24-2022 13:57-0400 Systolic blood pressure 112 mm[Hg] Dr. Kamilah Patel Work Phone: [facility] 08-01-2022 07:46-0400 Body mass index (BMI) [Ratio] 31.5 kg/m2 Dr. Kamilah Patel Work Phone: [facility] 08-01-2022 07:46-0400 Body temperature 98.1 [degF] Dr. Kamilah Patel Work Phone: [facility] 08-01-2022 07:46-0400 Body weight 80.[address] Kamilah Patel Work Phone: [facility] 08-01-2022 07:46-0400 Diastolic blood pressure 70 mm[Hg] Dr. Kamilah Patel Work Phone: [facility] 08-01-2022 07:46-0400 Heart rate 77 /min Dr. Kamilah Patel Work Phone: [facility] 08-01-2022 07:46-0400 Respiratory rate 18 /min Dr. Kamilah Patel Work Phone: [facility] 08-01-2022 07:46-0400 SaO2% (BldA) [Mass fraction] 95 % Dr. Kamilah Patel Work Phone: [facility] 08-01-2022 07:46-0400 Systolic blood pressure 103 mm[Hg] Dr. Kamilah Patel Work Phone: [facility] 07-27-2022 14:19-0400 Body height 160.02 cm [facility] 07-27-2022 14:19-0400 Body temperature 97 [degF] [facility] 07-27-2022 14:19-0400 Diastolic blood pressure 67 mm[Hg] [facility] 07-27-2022 14:19-0400 Heart rate 90 /min [facility] 07-27-2022 14:19-0400 Respiratory rate 16 /min [facility] 07-27-2022 14:19-0400 SaO2% (BldA) [Mass fraction] 94 % [facility] 07-27-2022 14:19-0400 Systolic blood pressure 94 mm[Hg] [facility] 06-22-2022 13:05-0400 Body height 160.02 cm [facility] 06-22-2022 13:05-0400 Body mass index (BMI) [Ratio] 31.3 kg/m2 [facility] 06-22-2022 13:05-0400 Body weight 80.28 kg [facility] 06-22-2022 13:05-0400 Diastolic blood pressure 66 mm[Hg] [facility] 06-22-2022 13:05-0400 Heart rate 72 /min [facility] 06-22-2022 13:05-0400 Respiratory rate 16 /min [facility] 06-22-2022 13:05-0400 SaO2% (BldA) [Mass fraction] 100 % [facility] 06-22-2022 13:05-0400 Systolic blood pressure 101 mm[Hg] [facility] 05-25-2022 13:17-0500 Body height 160.[address] Kamilah Patel Work Phone: [facility] 05-25-2022 13:17-0500 Body mass index (BMI) [Ratio] 31.3 kg/m2 Dr. Kamilah Patel Work Phone: [facility] 05-25-2022 13:17-0500 Body temperature 97.5 [degF] Dr. Kamilah Patel Work Phone: [facility] 05-25-2022 13:17-0500 Body weight 80.[address] Kamilah Patel Work Phone: [facility] 05-25-2022 13:17-0500 Diastolic blood pressure 62 mm[Hg] Dr. Kamilah Patel Work Phone: [facility] 05-25-2022 13:17-0500 Heart rate 91 /min Dr. Kamilah Patel Work Phone: [facility] 05-25-2022 13:17-0500 Respiratory rate 18 /min Dr. Kamilah Patel Work Phone: [facility] 05-25-2022 13:17-0500 SaO2% (BldA) [Mass fraction] 94 % Dr. Kamilah Patel Work Phone: [facility] 05-25-2022 13:17-0500 Systolic blood pressure 97 mm[Hg] Dr. Kamilah Patel Work Phone: [facility] 04-27-2022 12:43-0500 Body mass index (BMI) [Ratio] 31.8 kg/m2 Dr. Kamilah Patel Work Phone: [facility] 04-27-2022 12:43-0500 Body temperature 97.5 [degF] Dr. Kamilah Patel Work Phone: [facility] 04-27-2022 12:43-0500 Body weight 81.[address] Kamilah Patel Work Phone: [facility] 04-27-2022 12:43-0500 Diastolic blood pressure 69 mm[Hg] Dr. Kamilah Patel Work Phone: [facility] 04-27-2022 12:43-0500 Heart rate 82 /min Dr. Kamilah Patel Work Phone: [facility] 04-27-2022 12:43-0500 Respiratory rate 16 /min Dr. Kamilah Patel Work Phone: [facility] 04-27-2022 12:43-0500 SaO2% (BldA) [Mass fraction] 93 % Dr. Kamilah Patel Work Phone: [facility] 04-27-2022 12:43-0500 Systolic blood pressure 125 mm[Hg] Dr. Kamilah Patel Work Phone: [facility] 03-21-2022 14:02-0500 Diastolic blood pressure 74 mm[Hg] Dr. Kamilah Patel Work Phone: [facility] 03-21-2022 14:02-0500 Heart rate 71 /min Dr. Kamilah Patel Work Phone: [facility] 03-21-2022 14:02-0500 SaO2% (BldA) [Mass fraction] 93 % Dr. Kamilah Patel Work Phone: [facility] 03-21-2022 14:02-0500 Systolic blood pressure 135 mm[Hg] Dr. Kamilah Patel Work Phone: [facility] 02-08-2022 14:23-0400 Diastolic blood pressure 64 mm[Hg] Dr. Kamilah Patel Work Phone: [facility] 02-08-2022 14:23-0400 Systolic blood pressure 108 mm[Hg] Dr. Kamilah Patel Work Phone: [facility] 02-08-2022 13:15-0400 Body temperature 98 [degF] Dr. Kamilah Patel Work Phone: [facility] 02-08-2022 13:15-0400 Heart rate 71 /min Dr. Kamilah Patel Work Phone: [facility] 02-08-2022 13:15-0400 Respiratory rate 14 /min Dr. Kamilah Patel Work Phone: [facility] 02-08-2022 13:15-0400 SaO2% (BldA) [Mass fraction] 96 % Dr. Kamilah Patel Work Phone: [facility] 01-30-2022 08:06-0400 Body height 160.[address] Kamilah Patel Work Phone: [facility] Work Phone: 01-30-2022 08:06-0400 Body mass index (BMI) [Ratio] 33.3 kg/m2 Dr. Kamilah Patel Work Phone: [facility] Work Phone: 01-30-2022 08:06-0400 Body temperature 98 [degF] Dr. Kamilah Patel Work Phone: [facility] Work Phone: 01-30-2022 08:06-0400 Body weight 85.[address] Kamilah Patel Work Phone: [facility] Work Phone: 01-30-2022 08:06-0400 Diastolic blood pressure 78 mm[Hg] Dr. Kamilah Patel Work Phone: [facility] Work Phone: 01-30-2022 08:06-0400 Heart rate 71 /min Dr. Kamilah Patel Work Phone: [facility] Work Phone: 01-30-2022 08:06-0400 Respiratory rate 16 /min Dr. Kamilah Patel Work Phone: [facility] Work Phone: 01-30-2022 08:06-0400 SaO2% (BldA) [Mass fraction] 94 % Dr. Kamilah Patel Work Phone: [facility] Work Phone: 01-30-2022 08:06-0400 Systolic blood pressure 132 mm[Hg] Dr. Kamilah Patel Work Phone: [facility] Work Phone: 01-24-2022 13:49-0400 Body height 160.[address] Kamilah Patel Work Phone: [facility] Work Phone: 01-24-2022 13:49-0400 Body mass index (BMI) [Ratio] 32.8 kg/m2 Dr. Kamilah Patel Work Phone: [facility] Work Phone: 01-24-2022 13:49-0400 Body temperature 97.8 [degF] Dr. Kamilah Patel Work Phone: [facility] Work Phone: 01-24-2022 13:49-0400 Body weight 83.[address] Kamilah Patel Work Phone: [facility] Work Phone: 01-24-2022 13:49-0400 Diastolic blood pressure 62 mm[Hg] Dr. Kamilah Patel Work Phone: [facility] Work Phone: 01-24-2022 13:49-0400 Heart rate 76 /min Dr. Kamilah Patel Work Phone: [facility] Work Phone: 01-24-2022 13:49-0400 Respiratory rate 16 /min Dr. Kamilah Patel Work Phone: [facility] Work Phone: 01-24-2022 13:49-0400 SaO2% (BldA) [Mass fraction] 97 % Dr. Kamilah Patel Work Phone: [facility] Work Phone: 01-24-2022 13:49-0400 Systolic blood pressure 117 mm[Hg] Dr. Kamilah Patel Work Phone: [facility] Work Phone: 12-27-2021 14:25-0400 Body temperature 98 [degF] Dr. Kamilah Patel Work Phone: [facility] Work Phone: 12-27-2021 14:25-0400 Diastolic blood pressure 74 mm[Hg] Dr. Kamilah Patel Work Phone: [facility] Work Phone: 12-27-2021 14:25-0400 Heart rate 84 /min Dr. Kamilah Patel Work Phone: [facility] Work Phone: 12-27-2021 14:25-0400 SaO2% (BldA) [Mass fraction] 93 % Dr. Kamilah Patel Work Phone: [facility] Work Phone: 12-27-2021 14:25-0400 Systolic blood pressure 113 mm[Hg] Dr. Kamilah Patel Work Phone: [facility] Work Phone: 11-23-2021 13:04-0400 Body height 160.[address] Kamilah Patel Work Phone: [facility] Work Phone: 11-23-2021 13:04-0400 Body mass index (BMI) [Ratio] 34 kg/m2 Dr. Kamilah Patel Work Phone: [facility] Work Phone: 11-23-2021 13:04-0400 Body temperature 97.5 [degF] Dr. Kamilah Patel Work Phone: [facility] Work Phone: 11-23-2021 13:04-0400 Body weight 87.[address] Kamilah Patel Work Phone: [facility] Work Phone: 11-23-2021 13:04-0400 Diastolic blood pressure 62 mm[Hg] Dr. Kamilah Patel Work Phone: [facility] Work Phone: 11-23-2021 13:04-0400 Heart rate 60 /min Dr. Kamilah Patel Work Phone: [facility] Work Phone: 11-23-2021 13:04-0400 Respiratory rate 16 /min Dr. Kamilah Patel Work Phone: [facility] Work Phone: 11-23-2021 13:04-0400 SaO2% (BldA) [Mass fraction] 96 % Dr. Kamilah Patel Work Phone: [facility] Work Phone: 11-23-2021 13:04-0400 Systolic blood pressure 119 mm[Hg] Dr. Kamilah Patel Work Phone: [facility] Work Phone: 11-09-2021 14:53-0400 Body temperature 97.9 [degF] Dr. Kamilah Patel Work Phone: [facility] Work Phone: 11-09-2021 14:53-0400 Diastolic blood pressure 74 mm[Hg] Dr. Kamilah Patel Work Phone: [facility] Work Phone: 11-09-2021 14:53-0400 Heart rate 90 /min Dr. Kamilah Patel Work Phone: [facility] Work Phone: 11-09-2021 14:53-0400 Respiratory rate 16 /min Dr. Kamilah Patel Work Phone: [facility] Work Phone: 11-09-2021 14:53-0400 SaO2% (BldA) [Mass fraction] 96 % Dr. Kamilah Patel Work Phone: [facility] Work Phone: 11-09-2021 14:53-0400 Systolic blood pressure 116 mm[Hg] Dr. Kamilah Patel Work Phone: [facility] Work Phone: 10-21-2021 08:56-0400 Body temperature 96.5 [degF] Dr. Kamilah Patel Work Phone: [facility] Work Phone: 10-21-2021 08:56-0400 Diastolic blood pressure 70 mm[Hg] Dr. Kamilah Patel Work Phone: [facility] Work Phone: 10-21-2021 08:56-0400 Heart rate 67 /min Dr. Kamilah Patel Work Phone: [facility] Work Phone: 10-21-2021 08:56-0400 SaO2% (BldA) [Mass fraction] 96 % Dr. Kamilah Patel Work Phone: [facility] Work Phone: 10-21-2021 08:56-0400 Systolic blood pressure 137 mm[Hg] Dr. Kamilah Patel Work Phone: [facility] Work Phone: 09-02-2021 13:53-0400 Body height 160.[address] Kamilah Patel Work Phone: [facility] Work Phone: 09-02-2021 13:53-0400 Body temperature 97.4 [degF] Dr. Kmailah Patel Work Phone: [facility] Work Phone: 09-02-2021 13:53-0400 Diastolic blood pressure 62 mm[Hg] Dr. Kamilah Patel Work Phone: [facility] Work Phone: 09-02-2021 13:53-0400 Heart rate 79 /min Dr. Kamilah Patel Work Phone: [facility] Work Phone: 09-02-2021 13:53-0400 Respiratory rate 16 /min Dr. Kamilah Patel Work Phone: [facility] Work Phone: 09-02-2021 13:53-0400 SaO2% (BldA) [Mass fraction] 94 % Dr. Kamilah Patel Work Phone: [facility] Work Phone: 09-02-2021 13:53-0400 Systolic blood pressure 106 mm[Hg] Dr. Kamilah Patel Work Phone: [facility] Work Phone: 08-05-2021 13:27-0400 Body height 160.[address] Kamilah Patel Work Phone: [facility] Work Phone: 08-05-2021 13:27-0400 Body temperature 96.9 [degF] Dr. Kamilah Patel Work Phone: [facility] Work Phone: 08-05-2021 13:27-0400 Diastolic blood pressure 63 mm[Hg] Dr. Kamilah Patel Work Phone: [facility] Work Phone: 08-05-2021 13:27-0400 Heart rate 84 /min Dr. Kamilah Patel Work Phone: [facility] Work Phone: 08-05-2021 13:27-0400 Respiratory rate 20 /min Dr. Kamilah Patel Work Phone: [facility] Work Phone: 08-05-2021 13:27-0400 SaO2% (BldA) [Mass fraction] 95 % Dr. Kamilah Patel Work Phone: [facility] Work Phone: 08-05-2021 13:27-0400 Systolic blood pressure 110 mm[Hg] Dr. Kamilah Patel Work Phone: [facility] Work Phone: 07-07-2021 10:02-0400 Body height 160.[address] Kamilah Patel Work Phone: [facility] Work Phone: 07-07-2021 10:02-0400 Body mass index (BMI) [Ratio] 33.6 kg/m2 Dr. Kamilah Patel Work Phone: [facility] Work Phone: 07-07-2021 10:02-0400 Body temperature 97.5 [degF] Dr. Kamilah Patel Work Phone: [facility] Work Phone: 07-07-2021 10:02-0400 Body weight 86.[address] Kamilah Patel Work Phone: [facility] Work Phone: 07-07-2021 10:02-0400 Diastolic blood pressure 82 mm[Hg] Dr. Kamilah Patel Work Phone: [facility] Work Phone: 07-07-2021 10:02-0400 Heart rate 77 /min Dr. Kamilah Patel Work Phone: [facility] Work Phone: 07-07-2021 10:02-0400 Respiratory rate 19 /min Dr. Kamilah Patel Work Phone: [facility] Work Phone: 07-07-2021 10:02-0400 SaO2% (BldA) [Mass fraction] 92 % Dr. Kamilah Patel Work Phone: [facility] Work Phone: 07-07-2021 10:02-0400 Systolic blood pressure 128 mm[Hg] Dr. Kamilah Patel Work Phone: [facility] Work Phone: 05-20-2021 10:07-0500 Body temperature 97.2 [degF] Dr. Kamilah Patel Work Phone: [facility] Work Phone: 05-20-2021 10:07-0500 Diastolic blood pressure 70 mm[Hg] Dr. Kamilah Patel Work Phone: [facility] Work Phone: 05-20-2021 10:07-0500 Heart rate 91 /min Dr. Kamilah Patel Work Phone: [facility] Work Phone: 05-20-2021 10:07-0500 Respiratory rate 16 /min Dr. Kamilah Patel Work Phone: [facility] Work Phone: 05-20-2021 10:07-0500 SaO2% (BldA) [Mass fraction] 96 % Dr. Kamilah Patel Work Phone: [facility] Work Phone: 05-20-2021 10:07-0500 Systolic blood pressure 118 mm[Hg] Dr. Kamilah Patel Work Phone: [facility] Work Phone: 04-18-2021 05:33-0500 Body temperature 97.5 [degF] Dr. Kamilah Patel Work Phone: [facility] Work Phone: 04-18-2021 05:33-0500 Diastolic blood pressure 68 mm[Hg] Dr. Kamilah Patel Work Phone: [facility] Work Phone: 04-18-2021 05:33-0500 Heart rate 68 /min Dr. Kamilah Patel Work Phone: [facility] Work Phone: 04-18-2021 05:33-0500 Respiratory rate 18 /min Dr. Kamilah Patel Work Phone: [facility] Work Phone: 04-18-2021 05:33-0500 SaO2% (BldA) [Mass fraction] 97 % Dr. Kamilah Patel Work Phone: [facility] Work Phone: 04-18-2021 05:33-0500 Systolic blood pressure 114 mm[Hg] Dr. Kamilah Patel Work Phone: [facility] Work Phone: 04-06-2021 15:50-0500 Body temperature 97.1 [degF] Dr. Kamilah Patel Work Phone: [facility] Work Phone: 04-06-2021 15:50-0500 Diastolic blood pressure 76 mm[Hg] Dr. Kamilah Patel Work Phone: [facility] Work Phone: 04-06-2021 15:50-0500 Heart rate 69 /min Dr. Kamilah Patel Work Phone: [facility] Work Phone: 04-06-2021 15:50-0500 Respiratory rate 18 /min Dr. Kamilah Patel Work Phone: [facility] Work Phone: 04-06-2021 15:50-0500 SaO2% (BldA) [Mass fraction] 93 % Dr. Kamilah Patel Work Phone: [facility] Work Phone: 04-06-2021 15:50-0500 Systolic blood pressure 108 mm[Hg] Dr. Kamilah Patel Work Phone: [facility] Work Phone: 04-04-2021 21:01-0500 Body mass index (BMI) [Ratio] 35.2 kg/m2 Dr. Kamilah Patel Work Phone: [facility] Work Phone: 04-04-2021 21:01-0500 Body temperature 97.6 [degF] Dr. Kamilah Patel Work Phone: [facility] Work Phone: 04-04-2021 21:01-0500 Body weight 90.[address] Kamilah Patel Work Phone: [facility] Work Phone: 04-04-2021 21:01-0500 Diastolic blood pressure 73 mm[Hg] Dr. Kamilah Patel Work Phone: [facility] Work Phone: 04-04-2021 21:01-0500 Heart rate 100 /min Dr. Kamilah Patel Work Phone: [facility] Work Phone: 04-04-2021 21:01-0500 Respiratory rate 20 /min Dr. Kamilah Patel Work Phone: [facility] Work Phone: 04-04-2021 21:01-0500 SaO2% (BldA) [Mass fraction] 93 % Dr. Kamilah Patel Work Phone: [facility] Work Phone: 04-04-2021 21:01-0500 Systolic blood pressure 125 mm[Hg] Dr. Kamilah Patel Work Phone: [facility] Work Phone: 03-11-2021 12:47-0500 Body mass index (BMI) [Ratio] 35 kg/m2 Dr. Kamilah Patel Work Phone: [facility] Work Phone: 03-11-2021 12:47-0500 Body temperature 96.6 [degF] Dr. Kamilah Patel Work Phone: [facility] Work Phone: 03-11-2021 12:47-0500 Body weight 89.[address] Kamilah Patel Work Phone: [facility] Work Phone: 03-11-2021 12:47-0500 Diastolic blood pressure 66 mm[Hg] Dr. Kamilah Patel Work Phone: [facility] Work Phone: 03-11-2021 12:47-0500 Heart rate 75 /min Dr. Kamilah Patel Work Phone: [facility] Work Phone: 03-11-2021 12:47-0500 Respiratory rate 16 /min Dr. Kamilah Patel Work Phone: [facility] Work Phone: 03-11-2021 12:47-0500 SaO2% (BldA) [Mass fraction] 97 % Dr. Kamilah Patel Work Phone: [facility] Work Phone: 03-11-2021 12:47-0500 Systolic blood pressure 136 mm[Hg] Dr. Kamilah Patel Work Phone: [facility] Work Phone: 11-09-2016 15:43-0400 BMI (Body Mass Index) 27.87 kg/m2 Mariel Coronado LPN [facility] Work Phone: 11-09-2016 15:43-0400 Body Temperature 97.7 [degF] Mariel Coronado LPN [facility] Work Phone: 11-09-2016 15:43-0400 BP Diastolic 80 mm[Hg] Mariel Coronado LPN [facility] Work Phone: 11-09-2016 15:43-0400 BP Systolic 126 mm[Hg] Mariel Coronado LPN [facility] Work Phone: 11-09-2016 15:43-0400 Height 162.56 cm Mariel Coronado LPN [facility] Work Phone: 11-09-2016 15:43-0400 Pulse (Heart Rate) 79 /min Mariel Coronado LPN [facility] Work Phone: 11-09-2016 15:43-0400 Respiratory Rate 15 /min Mariel Coronado LPN [facility] Work Phone: 11-09-2016 15:43-0400 Weight 73.66 kg Mariel Coronado LPN [facility] Work Phone: 10-09-2016 12:46-0400 BMI (Body Mass Index) 27.94 kg/m2 Leilani Baron LPN [facility] Work Phone: 10-09-2016 12:46-0400 Body Temperature 97.7 [degF] Leilani Baron LPN [facility] Work Phone: 10-09-2016 12:46-0400 BP Diastolic 72 mm[Hg] Leilani Baron LPN [facility] Work Phone: 10-09-2016 12:46-0400 BP Systolic 108 mm[Hg] Leilani Baron LPN [facility] Work Phone: 10-09-2016 12:46-0400 Height 162.56 cm Leilani Baron LPN [facility] Work Phone: 10-09-2016 12:46-0400 Pulse (Heart Rate) 64 /min Leilani Baron LPN [facility] Work Phone: 10-09-2016 12:46-0400 Pulse Oximetry 95 % Leilani Baron LPN [facility] Work Phone: 10-09-2016 12:46-0400 Respiratory Rate 12 /min Leilani Baron LPN [facility] Work Phone: 10-09-2016 12:46-0400 Weight 73.85 kg Leilani Baron LPN [facility] Work Phone: 09-20-2016 13:04-0400 BMI (Body Mass Index) 28.87 kg/m2 [facility] 09-20-2016 13:04-0400 Body Temperature 98.4 [degF] Brisa Yensho [employer]IC[employer] EQUIPMENT SALES ENGINEER [facility] Work Phone: 09-20-2016 13:04-0400 BP Diastolic 73 mm[Hg] Brisa Yensho [employer]GRIC[employer] EQUIPMENT SALES ENGINEER [facility] Work Phone: 09-20-2016 13:04-0400 BP Systolic 104 mm[Hg] Brisa Yensho [employer]GRIC[employer] EQUIPMENT SALES ENGINEER [facility] Work Phone: 09-20-2016 13:04-0400 Height 160.02 cm Brisa Yensho AGRIC[employer] EQUIPMENT SALES ENGINEER [facility] Work Phone: 09-20-2016 13:04-0400 Pulse (Heart Rate) 70 /min Brisa Yensho [employer]GRIC[employer] EQUIPMENT SALES ENGINEER [facility] Work Phone: 09-20-2016 13:04-0400 Pulse Oximetry 96 % Brisa Yensho [employer]GRIC[employer] EQUIPMENT SALES ENGINEER [facility] Work Phone: 09-20-2016 13:04-0400 Respiratory Rate 18 /min Brisa Yensho [employer] EQUIPMENT SALES ENGINEER [facility] Work Phone: 09-20-2016 13:04-0400 Weight 73.94 kg Brisa Yensho [employer]IC[employer] EQUIPMENT SALES ENGINEER [facility] Work Phone: 02-03-2016 12:57-0400 BMI (Body Mass Index) 31.88 kg/m2 Kristengabriele Marie AGRICULTURAL EQUIPMENT SALES ENGINEER [facility] Work Phone: 02-03-2016 12:57-0400 Body Temperature 96.62 [degF] Kristen Marie AGRICULTURAL EQUIPMENT SALES ENGINEER [facility] Work Phone: 02-03-2016 12:57-0400 Body Temperature 96.6 [degF] Kristen Marie AGRIC[employer] EQUIPMENT SALES ENGINEER [facility] Work Phone: 02-03-2016 12:57-0400 BP Diastolic 73 mm[Hg] Kristen Marie AGRIC[employer] EQUIPMENT SALES ENGINEER [facility] Work Phone: 02-03-2016 12:57-0400 BP Systolic 140 mm[Hg] Kristen Marie [employer]IC[employer] EQUIPMENT SALES ENGINEER [facility] Work Phone: 02-03-2016 12:57-0400 BSA (Body Surface Area) 1.85 m2 Kristen Marie [employer] EQUIPMENT SALES ENGINEER [facility] Work Phone: 02-03-2016 12:57-0400 Height 160.02 cm Kristen Marie AGRIC[employer] EQUIPMENT SALES ENGINEER [facility] Work Phone: 02-03-2016 12:57-0400 Pulse (Heart Rate) 91 /min Kristen Marie [employer] EQUIPMENT SALES ENGINEER [facility] Work Phone: 02-03-2016 12:57-0400 Pulse Oximetry 97 % Kristen Marie AGRIC[employer] EQUIPMENT SALES ENGINEER [facility] Work Phone: 02-03-2016 12:57-0400 Respiratory Rate 18 /min Kristen Marie [employer] EQUIPMENT SALES ENGINEER [facility] Work Phone: 02-03-2016 12:57-0400 Weight 81.82 kg Kristen Marie [employer] EQUIPMENT SALES ENGINEER [facility] Work Phone: 02-03-2016 12:57-0400 Weight 81.65 kg Kristen Marie A[employer] EQUIPMENT SALES ENGINEER [facility] Work Phone: 12-30-2015 14:51-0400 Heart rate 62 /min Kristen Marie A[employer] EQUIPMENT SALES ENGINEER [facility] Work Phone: Encounters Encounter Date Encounter Type Care Provider Facility Start: 02-20-2025 ambulatory Naomi Whyte Facility:[facility] Start: 02-04-2025 ambulatory [facility] Start: 02-04-2025 End: 02-05-2025 Evaluation and management of inpatient [facility] Facility:[facility] Start: 02-03-2025 End: 02-03-20[facility] Start: 02-02-2025 End: 02-02-2025 [facility] Start: 01-26-2025 End: 01-26-2025 [facility] Start: 01-20-2025 End: 01-20-2025 Patient encounter procedure Cathie QUINTERSO -[facility] Work Phone: Start: 01-20-2025 End: 01-20-[address] Naomi Whyte DO Work Phone: -[facility] Start: 01-19-2025 End: 01-19-2025 Patient encounter procedure Cathie QUINTEROS -[facility] Work Phone: Start: 01-19-2025 End: 01-19-2025 ambulatory Naomi Whyte Facility:[facility] Start: 01-16-2025 End: 01-16-2025 Patient encounter procedure Cathie QUINTEROS -[facility] Work Phone: Start: 01-16-2025 End: 01-16-[address] Naomi Whyte DO Work Phone: -[facility] Start: 12-24-2024 End: 12-24-2024 Emergency department patient visit Dr. Naomi Whyte DO Work Phone: -Emergency Department Work Phone: Start: 12-19-2024 ambulatory Naomi Whyte Facility:[facility] Start: 11-18-2024 End: 11-18-[address] Naomi Whyte DO Work Phone: -[facility] [place] Start: 11-18-2024 End: 11-18-[address] Naomi Whyte DO -[facility] [place] Work Phone: Start: 11-18-2024 End: 11-18-2024 ambulatory Naomi Whyte Facility:[facility] Start: 11-14-2024 End: 11-14-2024 Patient encounter procedure Cathie De Jesus NP-C -[facility] Work Phone: Start: 11-14-2024 End: 11-14-[address] Naomi Whyte DO Work Phone: -[facility] Start: 10-24-2024 ambulatory Mary Villasenor Facility:[facility] Start: 10-24-2024 Non-patient / Non-visit Dr. Mary bose MD -[facility] Start: 10-24-2024 End: 10-24-[address] Naomi Whyte DO Work Phone: -Cardiovascular Services Start: 10-24-2024 End: 10-24-[address] Angel Patel MD -Cardiovascular Services Work Phone: Start: 10-24-2024 End: 10-24-2024 [facility] Start: 10-17-2024 End: 10-17-2024 Patient encounter procedure Cathie De Jesus NP-C -[facility] Work Phone: Start: 10-17-2024 End: 10-17-[address] Naomi Whyte DO Work Phone: -[facility] Start: 10-17-2024 End: 10-17-2024 ambulatory Naomi Whyte Facility:[facility] Start: 09-10-2024 End: 09-10-2024 Patient encounter procedure Cathie De Jesus NP-C -[facility] Work Phone: Start: 09-10-2024 End: 09-10-[address] Naomi Whyte DO Work Phone: [facility] Work Phone: Start: 09-05-2024 ambulatory Cathie De Jesus CHANNEL WORKER Fac ility:[facility] Start: 08-08-2024 ambulatory Cathie De Jesus NP Fac ility:[facility] Start: 07-04-2024 End: 07-04-2024 Patient encounter procedure Cathie De Jesus CHANNEL WORKER-C -[facility] Work Phone: Start: 07-04-2024 End: 07-04-[address] Naomi Whyte DO Work Phone: [facility] Work Phone: Start: 06-03-2024 ambulatory Cathie De Jesus NP Fac ility:[facility] Start: 04-25-2024 End: 04-25-2024 Patient encounter procedure Cathie De Jesus CHANNEL WORKER-C -[facility] Work Phone: Start: 04-25-2024 End: 04-25-2024 ambulatory Cathie De Jesus CHANNEL WORKER Facility:[facility] Start: 03-21-2024 End: 03-21-2024 Patient encounter procedure Cathie De Jesus CHANNEL WORKER-C -[facility] Work Phone: Start: 03-21-2024 End: 03-21-2024 ambulatory Cathie De Jesus CHANNEL WORKER Facility:[facility] Start: 03-12-2024 End: 03-12-2024 Patient encounter procedure Cathie De Jesus CHANNEL WORKER-C -[facility] Work Phone: Start: 03-12-2024 End: 03-12-2024 ambulatory Naomi Whyte Facility:[facility] Start: 02-29-2024 ambulatory [facility] Facility:[facility] Start: 08-15-2023 End: 08-15-[address] Kamilah Patel Work Phone: [facility] Work Phone: Start: 08-15-2023 End: 08-15-[address] Kamilah Patel Work Phone: [facility] Work Phone: Start: 08-02-2023 End: 08-02-[address] Kamilah Patel Work Phone: [facility] Work Phone: Start: 06-15-2023 End: 06-15-[address] Kamilah Patel Work Phone: [facility] Work Phone: Start: 06-15-2023 End: 06-15-[address] Kamilah Patel Work Phone: [facility] Work Phone: Start: 05-18-2023 End: 05-18-[address] Kamilah Patel Work Phone: [facility] Work Phone: Start: 05-18-2023 End: 05-18-[address] Kamilah Patel Work Phone: [facility] Work Phone: Start: 05-16-2023 End: 05-16-[address] Kamilah Patel Work Phone: [facility] Work Phone: Start: 04-20-2023 End: 04-20-[address] Kamilah Patel Work Phone: [facility] Work Phone: Start: 04-20-2023 End: 04-20-[address] Kamilah Patel Work Phone: [facility] Work Phone: Start: 03-26-2023 End: 03-26-[address] Kamilah Patel Work Phone: [facility] Work Phone: Start: 03-26-2023 End: 03-26-[address] Kamilah Patel Work Phone: [facility]-Outpatient Breast Imaging Work Phone: Start: 02-23-2023 End: 02-23-[address] Kamilah Patel Work Phone: [facility] Work Phone: Start: 02-23-2023 End: 02-23-[address] Kamilah Patel Work Phone: [facility]-Medical Out Work Phone: Start: 2023 End: [address] Kamilah Patel Work Phone: [facility]-Pulmonary Medicine [facility] Work Phone: Start: 01-26-2023 End: 01-26-2023 ambulatory [facility] Work Phone: Start: 01-26-2023 End: 01-26-2023 Patient encounter procedure [facility]-Medical Out Work Phone: Start: 12-29-2022 End: 12-29-2022 ambulatory [facility] Work Phone: Start: 12-29-2022 End: 12-29-2022 Patient encounter procedure [facility]Medical Out Work Phone: Start: 12-21-2022 End: 12-21-2022 ambulatory [facility] Work Phone: Start: 12-21-2022 End: 12-21-2022 Patient encounter procedure [facility]-Cat [facility], [facility] Work Phone: Start: 12-15-2022 End: 12-15-2022 Emergency department patient visit [facility]-Emergency Department Work Phone: Start: 12-01-2022 End: 12-01-2022 ambulatory [facility] Work Phone: Start: 12-01-2022 End: 12-01-2022 Patient encounter procedure [facility]-Medical Out Work Phone: Start: 11-02-2022 End: 11-02-2022 Patient encounter procedure [facility] Work Phone: Start: 09-28-2022 End: 09-28-[address] Kamilah Patel Work Phone: [facility] Work Phone: Start: 09-28-2022 End: 09-28-[address] Kamilah Patel Work Phone: [facility]-Medical Out Start: 08-24-2022 End: 08-24-[address] Kamilah Patel Work Phone: [facility]-Medical Out Start: 08-01-2022 End: 08-01-[address] Kam[facility] Start: 07-27-2022 End: 07-27-2022 ambulatory [facility] Work Phone: Start: 07-27-2022 End: 07-27-2022 Patient encounter procedure [facility]Medical Out Start: 06-22-2022 End: 06-22-2022 ambulatory [facility] Work Phone: Start: 06-22-2022 End: 06-22-2022 Patient encounter procedure [facility]Medical Out Start: 05-25-2022 End: 05-25-[address] Kamilah Patel Work Phone: [facility] Work Phone: Start: 05-25-2022 End: 05-25-[address] Kamilah Patel Work Phone: [facility]-Medical Out Start: 04-27-2022 End: 04-27-[address] Kamilah Patel Work Phone: [facility]-Medical Out Start: 03-21-2022 End: 03-21-[address] Kamilah Patel Work Phone: [facility] Work Phone: Start: 03-21-2022 End: 03-21-[address] Kamilah Patel Work Phone: [facility]-Medical Out Start: 02-09-2022 End: 02-09-[address] Kamilah Patel Work Phone: [facility] Work Phone: Start: 02-09-2022 End: 02-09-[address] Kamilah Patel Work Phone: [facility]-Sleep Lab Start: 02-08-2022 End: 02-08-[address] Kamilah Patel Work Phone: [facility] Work Phone: Start: 02-08-2022 End: 02-08-[address] Kamilah Patel Work Phone: [facility]-Laboratory, Specimen Start: 02-08-2022 End: 02-08-[address] Kamilah Patel Work Phone: [facility]-Now Clinic Start: 01-30-2022 End: 01-30-[address] Kamilah Patel Work Phone: [facility]-Pulmonary Medicine [facility] Start: 01-24-2022 End: 01-24-[address] Kamilah Patel Work Phone: [facility] Work Phone: Start: 01-24-2022 End: 01-24-[address] Kam[facility] Pat[facility] Start: 12-27-2021 End: 12-27-[address] Kamil[facility] Patel [facility] Start: 12-19-2021 End: 12-19-[address] Kamilah Patel Work Phone: [facility] Scan, [facility] Start: 12-15-2021 End: 12-15-[address] Kamilah Patel Work Phone: [facility] Work Phone: Start: 12-15-2021 End: 12-15-[address] Kamilah Patel [facility] Phone: [facility] [place] Start: 11-23-2021 End: 11-23-[address] Kamilah Patel [facility] Start: 11-10-2021 End: 11-10-[address] Kamilah Patel [facility] Phone[facility] Start: 11-09-2021 End: 11-09-[address] Kamilah Patel Work Phone: [facility] Start: 10-21-2021 End: 10-21-[address] Kamil[facility] Patel [facility] Start: 09-02-2021 End: 09-02-[address] Kamilah Patel [facility] Start: 08-05-2021 End: 08-05-[address] Kamilah Patel Work Phone: [facility]-Medical Out Start: 07-07-2021 End: 07-07-[address] Kamilah Patel Work Phone: [facility]-Pulmonary Medicine [facility] Start: 06-28-2021 End: 06-28-[address] Kamilah Patel Work Phone: [facility] Scan, [facility] Start: 05-20-2021 End: 05-20-[address] Kamilah Patel [facility] Start: 04-18-2021 End: 04-18-[address] Kamilah Patel Work Phone: [facility] Start: 04-06-2021 End: 04-06-[address] Kamilah Patel Work Phone: [facility] Start: 04-04-2021 End: 04-04-2021 Emergency department patient visit Dr. Kamilah Patel [facility] Phone[facility] Start: 03-11-[address] Kamilah Patel [facility] Phone: [facility] Procedures Date Procedure Procedure Detail [...] Start: 11-09-2016 End: 11-09-2016 Urinalysis Mariel Coronado AGRICULTURAL EQUIPMENT SALES ENGINEER Start: 11-09-2016 End: 11-09-2016 Urnls dip stick/tablet rgnt non-auto w/o micrscp Catracho Clifton PA Work Phone: Start: 09-20-2016 End: 09-20-2016 Dietary management education, guidance, and counseling Brisa Ball AGRICULTURAL EQUIPMENT SALES ENGINEER Start: 02-03-2016 End: 02-03-2016 Dietary management education, guidance, and counseling Kristen Marie AGRICULTURAL EQUIPMENT SALES ENGINEER Start: 02-03-2016 End: 03-13-2016 DMB Cathie Esquivel CHANNEL WORKER Work Phone: Start: 02-03-2016 End: 03-13-2016 Follow Up Appt 6 months Cathie acuna HOSPITALITY AMBASSADOR Work Phone: Start: 02-03-2016 End: 02-04-2016 Referral to neurologist Cathie acuna HOSPITALITY AMBASSADOR Work Phone: Start: 01-03-2016 End: 03-13-2016 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 Kamilah patterson Work Phone: Urine culture Dr. Kamilah patterson Work Phone: Plan of Treatment Date Care Activity Detail Author Start: 02-03-2025 Positron emission tomography with computed tomography [facility] Start: 02-03-2025 Patient encounter procedure Registered Clinical [facility] Start: 02-02-2025 Plain X-ray abdomen Abdomen Single View [facility] Start: 02-02-2025 XR Abdomen Single view [facility] Start: 02-02-2025 Patient encounter procedure Registered Clinical -Radiology Doni araya Work Phone: Start: 01-26-2025 End: 01-26-2025 Patient encounter procedure -Pulmonary Services/Neurology Work Phone: Start: 01-20-2025 End: 01-20-2025 Patient encounter procedure Drug-induced myopathy -[place] [facility] Work Phone: Start: 01-19-2025 CT of chest Low Dose CT Lung Screening [facility] Start: 12-24-2024 [facility] Start: 10-17-2024 [facility] Start: 12-15-2022 [facility] Start: 08-01-2022 Patient referral [facility] Work Phone: Start: 03-19-2017 End: 03-19-2017 Appointment Appointment [facility] Work Phone: Start: 11-09-2016 End: 11-09-2016 Appointment Appointment [facility] Work Phone: Start: 10-09-2016 End: 10-09-2016 Appointment Appointment [facility] Work Phone: Start: 09-20-2016 End: 09-20-2016 Appointment Appointment [facility] Work Phone: Start: 09-20-2016 End: 09-20-2016 [facility] Work Phone: Start: 09-20-2016 End: 09-20-2016 Follow Up Appt 6 months Follow Up Appt 6 months [facility] Work Phone: Start: 02-03-2016 End: 03-13-2016 DMB DMB [facility] Work Phone: Start: 02-03-2016 End: 03-13-2016 Follow Up Appt 6 months Follow Up Appt 6 months [facility] Work Phone: Start: 02-03-2016 End: 03-13-2016 Neurology Referral Neurology Referral [facility] Work Phone: Start: 01-25-2016 End: 01-25-2016 Vascular Surgery Vascular Surgery Janak Crawley MD, [address] [facility], [place] [address], [place], [address] [facility] Work Phone: Start: 01-03-2016 End: 03-13-2016 [facility] Work Phone: Start: 01-03-2016 End: 03-13-2016 Follow Up Appt 1 month Follow Up Appt 1 month [facility] Work Phone: Start: 12-30-2015 End: 12-30-2015 Arterial exam Arterial exam [facility] Work Phone: Start: 12-30-2015 End: 12-30-2015 Echocardiography Echocardiogram (complete) [facility] Phone: Start: 12-30-2015 End: 12-30-2015 Electrocardiogram, complete EKG (In office) [facility] Phone: Start: 12-30-2015 End: 12-30-2015 Follow Up Appt 6 weeks Follow Up Appt 6 weeks [facility] Phone: Start: 12-30-2015 End: 12-30-2015 Follow Up Appt Other Follow Up Appt Other [facility] Phone: Start: 12-30-2015 End: 12-30-2015 MMM MMM [facility] Phone: Start: 12-30-2015 End: 12-30-2015 Nuclear stress test -Lexiscan Nuclear stress test -Lexiscan [facility] Phone: Start: 12-30-2015 End: 03-13-2016 Titration with Follow up (pt not on cpap) Titration with Follow up (pt not on cpap) [facility] Phone: Start: 12-02-2015 End: 12-30-2015 Complete sleep workup (PSG,CPAP as indicated) & Follow up Complete sleep workup (PSG,CPAP as indicated) & Follow up [facility] Phone: Start: 12-02-2015 End: 12-02-2015 [facility] Phone: Start: 12-02-2015 End: 12-02-2015 Follow Up Appt 1 month Follow Up Appt 1 month [facility] Phone: Start: 12-02-2015 End: 12-02-2015 Pulmonary Function Test - complete Pulmonary Function Test - complete [facility] Phone: Start: 12-02-2015 End: 12-30-2015 Pulmonary stress test/simple Pulmonary stress testing; simple (eg, 6-minute walk) [facility] Phone: Blood chemistry [facility] Brain natriuretic pe ptide measurement [facility] CT Chest [facility] CT [facility] CT Chest [facility] Patient Education [facility] Work Phone: Patient referral [facility] Work Phone: XR Chest PA and Lateral [facility] Immunizations Immunization Date Immunization Notes Care Provider Fa cility 11-22-2015 diphtheria, tetanus toxoids and acellular pertussis vaccine, unspecified formulation; Translations: [[id number] PERTUSSIS] Kristen Marie LPN [facility] Work Phone: 11-22-2015 pneumococcal vaccine , unspecified formulation; Translations: [PNEUMOCOCCAL 13-FAVIAN CONJ VACC] Kristen Marie LPN [facility] Work Phone: 11-22-2015 varicella zoster imm une globulin; Translations: [ZOSTER VACCINE LIVE] Kristen Marie LPN [facility] Work Phone: Payers Date Payer Category Payer Self-pay [id number] 2024 Medicare [id number] 2024 Unknown [id number] Medicaid [id number] Unknown [id number] Unknown [id number] Unknown [id number] 2.16.8 40.1.282890.3.579.2.462 Unknown [id number] 2.16.8 40.1.485552.3.579.2.462 Unknown [id number] 2.16.8 40.1.116312.3.579.2.462 Unknown [id number] 2.16.8 40.1.666158.3.579.2.462 Unknown [id number] 2.16.8 40.1.033854.3.579.2.462 Unknown [id number] 2.16.8 40.1.179881.3.579.2.462 Unknown [id number] 2.16.8 40.1.825663.3.579.2.462 Unknown [id number] 2.16.8 40.1.201437.3.579.2.462 Unknown [id number] 2.16.8 40.1.607467.3.579.2.462 Unknown [id number] 2.16.8 40.1.361794.3.579.2.462 Unknown [id number] 2.16.8 40.1.811292.3.579.2.462 Unknown [id number] 2.16.8 40.1.595123.3.579.2.462 Unknown [id number] 2.16.8 40.1.714267.3.579.2.462 Unknown [id number] 2.16.8 40.1.471001.3.579.2.462 Unknown [id number] 2.16.8 40.1.519953.3.579.2.462 Unknown [id number] 2.16.8 40.1.953472.3.579.2.462 Unknown [id number] 2.16.8 40.1.483034.3.579.2.462 Unknown [id number] 2.16.8 40.1.135272.3.579.2.462 Unknown [id number] 2.16.8 40.1.120228.3.579.2.462 Unknown [id number] 2.16.8 40.1.799534.3.579.2.462 Unknown [id number] 2.16.8 40.1.779065.3.579.2.462 Unknown [id number] 2.16.8 40.1.462626.3.579.2.462 Unknown [id number] 2.16.8 40.1.116050.3.579.2.462 Unknown [id number] 2.16.8 40.1.489149.3.579.2.462 Unknown [id number] 2.16.8 40.1.081725.3.579.2.462 Unknown [id number] 2.16.8 40.1.423220.3.579.2.462 Unknown [id number] 2.16.8 40.1.189824.3.579.2.462 Unknown [id number] 2.16.8 40.1.229749.3.579.2.462 Unknown [id number] 2.16.8 40.1.512480.3.579.2.462 Social History Date Type Detail Facility Start: 07-07-2021 End: 08-02-2023 Tobacco smoking status NHIS Unknown if ever smoked [facility] Start: 1955 Sex Assigned At Female [facility] Start: 08-02-2023 End: 12-24-2024 Tobacco smoking status NHIS Ex-smoker (finding) [facility] Start: 07-05-2024 Sex Female (finding) [facility] Sex Female [facility] Mental Status Date Assessment Result Facility 01-16-2025 Cognitive function Awake [facility] Work Phone: 11-14-2024 Cognitive function Voice/Name [facility] Work Phone: 10-17-2024 Cognitive function Awake;Alert;A ppropriate;Follo ws Commands [facility] Work Phone: 09-10-2024 Cognitive function Voice/Name [facility] Work Phone: 07-04-2024 Cognitive function Awake;Alert;A ppropriate;Follo ws Commands [facility] Work Phone: 03-21-2024 Cognitive function Awake;Alert;A ppropriate;Follo [facility] Work Phone: 08-15-2023 Cognitive function Awake;Alert;A ppropriate;Follo [facility] Work Phone: 06-15-2023 Cognitive function Voice/Name [facility] Work Phone: 04-20-2023 Cognitive function Voice/Name [facility] Work Phone: 02-23-2023 Cognitive function Awake;Alert;A ppropriate;Follo [facility] Work Phone: 01-26-2023 Cognitive function Voice/Name [facility] Work Phone: 12-29-2022 Cognitive function Awake;Alert;A ppropriate;Follo [facility] Work Phone: 12-01-2022 Cognitive function Awake;Alert;A ppropriate;Follo [facility] Work Phone: 11-02-2022 Cognitive function Voice/Name [facility] Work Phone: 09-28-2022 Cognitive function Awake;Alert;A ppropriate;Follo [facility] Work Phone: 08-24-2022 Cognitive function Voice/Name [facility] Work Phone: 07-27-2022 Cognitive function Awake;Alert;A ppropriate;Follo [facility] Work Phone: 06-22-2022 Cognitive function Level Of Cons ciousness Awake;Alert;Appropriate;Follo ws [facility] Work Phone: 05-25-2022 Cognitive function Voice/Name [facility] Work Phone: 04-27-2022 Cognitive function Voice/Name [facility] Work Phone: 03-21-2022 Cognitive function Level Of Cons ciousness Awake;Alert;Appropriate;[facility] Work Phone: 01-24-2022 Cognitive function Voice/Name [facility] Work Phone: 12-27-2021 Cognitive function Level Of Cons ciousness Awake;Alert;Appropriate;[facility] Work Phone: 11-23-2021 Cognitive function Voice/Name [facility] Work Phone: 10-21-2021 Cognitive function Level Of Cons ciousness Awake;Alert;Appropriate;[facility] Work Phone: 09-02-2021 Cognitive function Awake;Alert;A ppropriate;[facility] Work Phone: 08-05-2021 Cognitive function Voice/Name [facility] Work Phone: 05-20-2021 Cognitive function Awake;Alert;A ppropriate;[facility] Work Phone: 03-11-2021 Cognitive function Voice/Name [facility] Work Phone: Clinical Notes 12-15-2022 to 02-05-2025 Note Date & Type Note Facility 02-05-2025 Note [facility] Medical Records Department [address] [place] [address] Discharge Summary 02/05/25 [facility] MR#: [id number] Acct: [id number] Name: TARSHA GONZALEZ Rep #: [id number] : 1955 70 From: Vaibhav Cardenas MD PCP: Dr. Naomi Whyte DO Status:ADM IN [facility] Prov[facility] Date of Admission: 02/04/25 Primary Care [...] % (Auto) 63.8, Lymph % (Auto) 22.0, [place] % (Auto) 10.8 H, Eos % (Auto) [...] Non-Af 87, BUN/Creatinine (more content not included)... [facility] 01-20-2025 Progress note [facility] 01-20-2025 Progress note Note Date/Time January 20, 2025 3:02pm [facility] [address] [place] [address] OFFICE VISIT Date of Service: 01/20/25 MR#: [id number] Acct: [id number] Name: TARSHA GONZALEZ Rep #: [id number] : 1955 Provider: NLEI De Jesus Age/Sex: 69/F Location: [facility].PM[facility] Status: Signed Assessment and Plan Assessment and [...] Chronic obstructive pulmonary disease, unspecified Medications: Refilled yhlxioqbzbn-ryaszxpox-tduiphqw 100-62.5-25 mcg (Trelegy Ellipta) 1 inh inhalation DAILY 3 ea 3RF Plan Details Additional Comments: This note was generated with [employer] dictation software. 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 DME Vendor: [employer] Accompanied by: Self Allergies codeine Allergy (Verified [...] mg/24 hr weekly 1 patch transdermal QW [place] 04/20/23 01/20/25 History transdermal patch mepolizumab 100 [...] 01/20/25 @ 16:25 by Cathie De Jesus CHANNEL WORKER, CHANNEL WORKER-C) Glaucoma Macular degeneration of both eyes Social anxiety disorder Sense of smell altered Urinary tract infection with hematuria COVID-19 COPD (chronic obstructive pulmonary disease) TORREZ (dyspnea on exertion) PHILIP (obstructive sleep apnea) Nicotine dependence in remission Obesity Atherosclerotic heart disease of [place] coronary artery without angina pectoris Cardiac murmur, [...] applicable) CC: Dr. Naomi Whyte DO ~ [facility] Work Phone: 1(744) 607-708209-17-2025 Discharge summary [facility] Medical Records Department [address] [place] [address] Emergency Department Summary 12/24/24 MR#: [id number] Acct: [id number] Name: TARSHA GONZALEZ Rep #:[id number] : [...] months ago.) or Recent travel (Drove to [place] greater than month ago) Prior similar symptoms: Yes Recent Illness/Hospitalization: No PFSH PFSH Medical History Glaucoma Macular degeneration of both eyes Social anxiety disorder Sense of smell altered Urinary tract infection with hematuria COVID-19 COPD (chronic obstructive pulmonary disease) TORREZ (dyspnea on exertion) PHILIP (obstructive sleep apnea) Nicotine dependence in remission Obesity Atherosclerotic heart disease of [place] coronary artery without angina pectoris Cardiac murmur, [...] mg/24 hr weekly 1 patch transdermal QW [place] 04/20/23 Unknown History transdermal patch fluticasone fur. [...] % (Auto) 55.4 Lymph % (Auto) 32.5 [place] % (Auto) 9.8 Eos % (Auto) 0.8 [...] lung changes. No focal consolidation. 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 Print Language: Bermudian Disposition Disposition: Home, Self Care What to do if you have Problems For any increased pain, shortness of breath, bleeding, nausea or vomiting, chestpain, or any unexpected problems, contact your Primary Care Provider. Call [facility] ([phone]) or report tothe closest Emergency Room. Call 911 if necessary. 12/24/24 2476 Cosigner Signature (if applicable): CC: Dr. Naomi Whyte DO ~ Signed [facility]09-17-2025 Radiology Diagnostic study note [facility] Imaging Services [address] [place], [place] [address] Chest PA and Lateral MR#: [id number] Acct: [id number] Name: TARSHA GONZALEZ Rep #: [id number] : 1955 F 69 From: Khoa Santos MD PCP: Dr. Naomi Whyte DO Status: REG ER Study:Chest PA and Lateral Date of Exam: 12/24/24 Exam# [id number] Ordering Dr: Paige Harrington MD PROCEDURE: CHEST [...] lung changes. No focal consolidation. Reading Location: [facility] CC: Dr. Naomi Whyte DO; Dr. Leobardo Harrington MD ~ Professional Wrestler: Signed [facility]09-17-2025 Discharge summary Author Leobardo Harrington [facility] Note Date/Time December 24, 2024 11:35pm [facility] Medical Records Department [address] [place] [address] Emergency Department Summary 12/24/24 MR#: [id number] Acct: [id number] Name: TARSHA GONZALEZ Rep #:[id number] : [...] months ago.) or Recent travel (Drove to [place] greater than month ago) Prior similar symptoms: Yes Recent Illness/Hospitalization: No PFSH PFSH Medical History Glaucoma Macular degeneration of both eyes Social anxiety disorder Sense of smell altered Urinary tract infection with hematuria COVID-19 COPD (chronic obstructive pulmonary disease) TORREZ (dyspnea on exertion) PHILIP (obstructive sleep apnea) Nicotine dependence in remission Obesity Atherosclerotic heart disease of [place] coronary artery without angina pectoris Cardiac murmur, [...] mg/24 hr weekly 1 patch transdermal QW [place] 04/20/23 Unknown History transdermal patch fluticasone fur. [...] % (Auto) 55.4 Lymph % (Auto) 32.5 [place] % (Auto) 9.8 Eos % (Auto) 0.8 [...] lung changes. No focal consolidation. 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 Print Language: Bermudian Disposition Disposition: Home, Self Care What to do if you have Problems For any increased pain, shortness of breath, bleeding, nausea or vomiting, chestpain, or any unexpected problems, contact your Primary Care Provider. Call [facility] ([phone]) or report to the closest Emergency Room. Call 911 if necessary. 12/24/242334 <Electronically signed by Leobardo Harrington MD> Cosigner Signature (if applicable): CC: Dr. Naomi Whyte DO ~ Signed [facility] Work Phone: 1(426) 489-277908-12-2025 Radiology Diagnostic study note [facility] Imaging Services [address] [place] [address] Chest PA and Lateral MR#: [id number] Acct: [id number] Name: TARSHA GONZALEZ DOMINGA Rep #: [id number] : 1955 F 69 From: Albina Bowman MD PCP: Dr. Naomi Whyte DO Status: REG CLI Study:Chest PA and Lateral Date of Exam: 11/18/24 Exam# [id number] Ordering Dr: Ai Whyte sa, DO PROCEDURE: [...] IMPRESSION: No acute cardiopulmonary abnormalities. Reading Location: [id number] CC: Dr. Naomi Whyte DO ~ Professional Wrestler: Signed [facility]06-04-2025 Evaluation note* Diagnosis Onset Date Resolution Status Admit Date Asthma-COPD overlap syndrome chronic September 10, 2024 1:33pm Tobacco abuse, in remission chronic September 10, 2024 1:33pm [facility] Work Phone: [phone] Evaluation note* Diagnosis Onset Date Resolution Status Admit Date Asthma-COPD overlap syndrome chronic September 10, 2024 1:33pm PHILIP (obstructive sleep apnea) chroni c September 10, 2024 1:33pm Tobacco abuse, in remission chronic September 10, 2024 1:33pm [facility] Work Phone: [phone] Evaluation note* Diagnosis Onset Date Resolution Status Admit Date Asthma-COPD overlap syndrome chronic March 12, 2024 12:29pm PHILIP (obstructive sleep apnea) chronic March 12 12:29pm Tobacco abuse, in remission chronic March 12, 2024 12:29pm [facility] Work Phone: [phone] Discharge summary Author Jagdish Day [facility] December 15, 2022 9:50am Note Date/Time December 15, 2022 7:33am [facility] Medical Records Department [address] [place] [id number] Emergency Department Summary 12/15/22 MR#: [id number] Acct: [id number] Name: TARSHA GONZALEZ Rep #:[id number] : [...] PFSH Medical History Atherosclerotic heart disease of [place] coronary artery without angina pectoris Cardiac murmur, [...] (Auto) 46.2 L Lymph % (Auto) 40.1 [place] % (Auto) 11.0 H Eos % (Auto) [...] rhythm rate 87 no acute signs of [place]. Discharge Plan Triage Chief Complaint: Shortness of [...] your Primary Care Provider. Call [facility] ([phone]) or report to the closest Emergency Room. Call 911 if necessary. 12/15/22 0950 <Electronically signed by Jagdish Day MD> Cosigner Signature (if applicable): CC: Dr. Kamilah Patel MD ~ Signed [facility] Work Phone: evaluation note* Diagnosis Onset Date Resolution Status COVID-19 acute Acute pharyngitis acute Asthma-COPD overlap syndrome chronic Lung nodule chronic PHILIP (obstructive sleep apnea) [facility] Work Phone: evaluation note* Diagnosis Onset Date Resolution Status Acute pharyngitis acute Asthma-COPD overlap syndrome chronic Lung nodule chronic PHILIP (obstructive sleep apnea) chronic [facility] Work Phone: evaluation note* Diagnosis Onset Date Resolution Status Asthma-COPD overlap syndrome chronic Lung nodule chronic PHILIP (obstructive sleep apnea) chronic [facility] Work Phone: evaluation note* Diagnosis Onset Date Resolution Status Urinary tract infection with hematuria acute [facility] Work Phone: evaluation note* Diagnosis Onset Date Resolution Status Urinary tract infection with hematuria acute Asthma-COPD overlap syndrome chronic PHILIP (obstructive sleep apnea) chronic Tobacco abuse, in remission chronic Urinary tract infection with hematuria acute [facility] Work Phone: Evaluation note* Diagnosis Onset Date Resolution Status Asthma-COPD overlap syndrome chronic PHILIP (obstructive sleep apnea) chronic Tobacco abuse, in remission chronic Urinary tract infection with hematuria acute [facility] Work Phone: evaluation noteNo assessment information available [facility] Work Phone: evaluation note* Diagnosis Onset Date Resolution Status Asthma-COPD overlap syndrome chronic PHILIP (obstructive sleep apnea) chronic Tobacco abuse, in remission chronic [facility] Work Phone: Evaluation note* Diagnosis Onset Date Resolution Status Asthma-COPD overlap syndrome chronic PHILIP (obstructive sleep apnea) chronic Tobacco abuse, in remission chronic Shortness of breath acute Wheezing acute [facility] Work Phone: Evaluation note* Diagnosis Onset Date Resolution Status Shortness of breath acute Wheezing acute [facility] Work Phone: Evaluation note* Diagnosis Onset Date Resolution Status Shortness of breath acute Wheezing acute Asthma-COPD overlap syndrome chronic Tobacco abuse, in remission chronic [facility] Work Phone: Evaluation note* Diagnosis Onset Date Resolution Status Admit Date Drug-induced myopathy acute Oct virgen 2024 2:01pm Asthma-COPD overlap syndrome chronic January 20, 2025 2:01pm Obesity chronic January 20, 2025 2:01pm PHILIP (obstructive sleep apnea) chroni c January 20, 2025 2:01pm Social anxiety disorder chronic O ctober 2024 2:01pm Tobacco abuse, in remission chronic January 20, 2025 2:01pm [facility] Work Phone: Hospital Discharge instructions Additional Instructions Plenty of fluids and rest. Your nebulizer at home as needed for wheezing and shortness of breath. Prednisone 40 mg a day for the next 5 days starting tomorrow. Follow-up if not improving or return if worse.[facility] Work Phone: Hospital Discharge instructionsAdditional [...] do not have a change in your sputum.[facility] Work Phone: Reason for referral (narrative)No reason for referral information availableWSalem City [facility] Work Phone: Chief Complaint and Reason [...] J44.9 - Chronic obstructive pulmonary di sease, [facility] January 26, 2025 7:56am KUB- February 02, [...] April 05, 2 021 12:02am Power of Music Artist No April 05, 2021 12:02am Advance Directive Response Recorded Date/ Time Living Will No April 04, 021 11:02pm Power of Music Artist No April 04, 2021 11:02pm Advance Directive Response Recorded Date/ Time Living Will No December 15, 2 023 7:23am Power of Music Artist No December 15, 2022 7:23am Advance Directive Response Recorded Date/ Time Living Will No December 15, 2 023 6:23am Power of Music Artist No December 15, 2022 6:23am Advance Directive Response Recorded Date/ Time Living Will No December 15, 2 023 7:23am Do you have a Healthcare Power of Music Artist? No December 15, 2022 7:23am Advance Directive Response Recorded Date/ Time Do you have a Healthcare Power of Music Artist? No December 24, 2024 9:18pm Summary Purpose [...] Status: Inactive Member Role Status Dates Dr. Kamilha Patel MD Primary Care Provider, Referrin g [...] Primary Care Provider Active Cathie De Jesus CHANNEL WORKER, CHANNEL WORKER-C Attending Provider, Referrin g Provider Active Team Status: Inactive Member Role Status Dates Dr. Kamilah Patel MD Primary Care Provider, Referrin g Provider Active Cathie De Jesus CHANNEL WORKER, CHANNEL WORKER-C Attending Provider Active Team Status: Inactive Member [...] End: March 12, 2024 Cathie De Jesus CHANNEL WORKER, CHANNEL WORKER-C Attending Provider Active Start: March 12, 2024 End: March 12, 2024 Team Status: Inactive Member Role Status Dates Dr. Naomi Whyte DO Primary Care Provider Active Start: March 21, 2024 End: March 21, 2024 Cathie De Jesus CHANNEL WORKER, CHANNEL WORKER-C Attending Provider Active Start: March 21, 2024 End: March 21, 2024 Cathie De Jesus CHANNEL WORKER, CHANNEL WORKER-C Referring Provider Active Start: March 21, 2024 End: March 21, 2024 Team Status: Inactive Member Role Status Dates Dr. Naomi Whyte DO Primary Care Provider Active Start: April 25, 2024 End: April 25, 2024 Cathie De Jesus CHANNEL WORKER, CHANNEL WORKER-C Attending Provider Active Start: April 25, 2024 End: April 25, 2024 Cathie De Jesus CHANNEL WORKER, CHANNEL WORKER-C Referring Provider Active Start: April 25, 2024 End: April 25, 2024 Team Status: Inactive Member Role Status Dates Dr. Naomi Whyte DO Primary Care Provider Active Start: July 04, 2024 End: July 04, 2024 Cathie De Jesus CHANNEL WORKER, CHANNEL WORKER-C Attending Provider Active Start: July 04, 2024 End: July 04, 2024 Cathie De Jseus CHANNEL WORKER, CHANNEL WORKER-C Referring Provider Active Start: July 04, 2024 End: July 04, 2024 Team Status: Inactive Member Role Status Dates Dr. Naomi Whyte DO Primary Care Provider Active Start: September 10, 2024 End: September 10, 2024 Dr. Naomi Whyte DO Referring Provider Active St art: September 10, 2024 End: September 10, 2024 Cathie De Jesus CHANNEL WORKER, CHANNEL WORKER-C Attending Provider Active Start: September 10, 2024 End: September 10, 2024 Team Status: Active Member Role Status Dates Dr. Naomi Whyte DO Primary Care Provider Active Start: September 10, 2024 Cathie De Jesus CHANNEL WORKER, CHANNEL WORKER-C Attending Provider Active Start: September 10, 2024 Cathie De Jesus CHANNEL WORKER, CHANNEL WORKER-C Referring Provider Active Start: September 10, 2024 Team Status: Inactive Member Role Status Dates Dr. Naomi Whyte DO Primary Care Provider Active Start: September 10, 2024 End: September 10, 2024 Cathie De Jesus CHANNEL WORKER, CHANNEL WORKER-C Attending Provider Active Start: September 10, 2024 End: September 10, 2024 Cathie De Jesus CHANNEL WORKER, CHANNEL WORKER-C Referring Provider Active Start: September 10, 2024 End: September 10, 2024 Team Status: Active Member Role/Relationship Status Dates Dr. Naomi Whyte DO Primary Care Provider Active Team Status: Inactive Member Role/Relationship Status Dates Dr. Naomi Whyte DO Primary Care Provider Active Start: July 04, 2024 End: July 04, 2024 Cathie De Jesus CHANNEL WORKER, CHANNEL WORKER-C Attending Provider Active Start: July 04, 2024 End: July 04, 2024 Cathie De Jesus CHANNEL WORKER, CHANNEL WORKER-C Referring Provider Active Start: July 04, 2024 End: July 04, 2024 Team Status: Inactive Member Role/Relationship Status Dates Dr. Naomi Whyte DO Primary Care Provider Active Start: September 10, 2024 End: September 10, 2024 Dr. Naomi Whyte DO Referring Provider Active St art: September 10, 2024 End: September 10, 2024 Cathie De Jesus CHANNEL WORKER, CHANNEL WORKER-C Attending Provider Active Start: September 10, 2024 End: September 10, 2024 Team Status: Inactive Member Role/Relationship Status Dates Dr. Naomi Whyte DO Primary Care Provider Active Start: September 10, 2024 End: September 10, 2024 Cathie De Jesus CHANNEL WORKER, CHANNEL WORKER-C Attending Provider Active Start: September 10, 2024 End: September 10, 2024 Cathie De Jesus CHANNEL WORKER, CHANNEL WORKER-C Referring Provider Active Start: September 10, 2024 End: September 10, 2024 Team Status: Inactive Member Role/Relationship Status Dates Dr. Naomi Whyte DO Primary Care Provider Active Start: October 17, 2024 End: October 17, 2024 Cathie De Jesus CHANNEL WORKER, CHANNEL WORKER-C Attending Provider Active Start: October 17, 2024 End: October 17, 2024 Cathie De Jesus CHANNEL WORKER, CHANNEL WORKER-C Referring Provider Active Start: October 17, 2024 [...] End: September 10, 2024 Cathie De Jesus CHANNEL WORKER, CHANNEL WORKER-C Attending Provider Active Start: September 10, 2024 End: September 10, 2024 Team Status: Inactive Member Role/Relationship Status Dates Dr. Naomi Whyte DO Primary Care Provider Active Start: September 10, 2024 End: September 10, 2024 Cathie De Jesus CHANNEL WORKER, CHANNEL WORKER-C Attending Provider Active Start: September 10, 2024 End: September 10, 2024 Cathie De Jesus CHANNEL WORKER, CHANNEL WORKER-C Referring Provider Active Start: September 10, 2024 End: September 10, 2024 Team Status: Inactive Member Role/Relationship Status Dates Dr. Naomi Whyte DO Primary Care Provider Active Start: October 17, 2024 End: October 17, 2024 Cathie De Jesus CHANNEL WORKER, CHANNEL WORKER-C Attending Provider Active Start: October 17, 2024 End: October 17, 2024 Cathie De Jesus CHANNEL WORKER, CHANNEL WORKER-C Referring Provider Active Start: October 17, 2024 [...] Active Member Role/Relationship Status Dates Dr. Naomi Wyhte DO Primary Care Provider Active Start: October [...] End: November 14, 2024 Cathie De Jesus CHANNEL WORKER, CHANNEL WORKER-C Attending Provider Active Start: November 14, 2024 End: November 14, 2024 Cathie De Jesus CHANNEL WORKER, CHANNEL WORKER-C Referring Provider Active Start: November 14, 2024 [...] End: September 10, 2024 Cathie De Jesus CHANNEL WORKER, CHANNEL WORKER-C Attending physician Active Start: September 10, 2024 End: September 10, 2024 Team Status: Inactive Member Role/Relationship Status Dates Dr. Naomi Whyte DO Primary care physician Active Start: September 10, 2024 End: September 10, 2024 Cathie De Jesus CHANNEL WORKER, CHANNEL WORKER-C Attending physician Active Start: September 10, 2024 End: September 10, 2024 Cathie De Jesus CHANNEL WORKER, CHANNEL WORKER-C Referring Provider Active Start: September 10, 2024 End: September 10, 2024 Team Status: Inactive Member Role/Relationship Status Dates Dr. Naomi Whyte DO Primary care physician Active Start: October 17, 2024 End: October 17, 2024 Cathie De Jesus CHANNEL WORKER, CHANNEL WORKER-C Attending physician Active Start: October 17, 2024 End: October 17, 2024 Cathie De Jesus CHANNEL WORKER, CHANNEL WORKER-C Referring Provider Active Start: October 17, 2024 [...] End: November 14, 2024 Cathie De Jesus CHANNEL WORKER, CHANNEL WORKER-C Attending physician Active Start: November 14, 2024 End: November 14, 2024 Cathie De Jesus CHANNEL WORKER, CHANNEL WORKER-C Referring Provider Active Start: November 14, 2024 [...] End: October 17, 2024 Cathie De Jesus CHANNEL WORKER, CHANNEL WORKER-C Attending physician Active Start: October 17, 2024 End: October 17, 2024 Cathie De Jesus CHANNEL WORKER, CHANNEL WORKER-C Referring Provider Active Start: October 17, 2024 [...] End: November 14, 2024 Cathie De Jesus CHANNEL WORKER, CHANNEL WORKER-C Attending physician Active Start: November 14, 2024 End: November 14, 2024 Cathie De Jesus CHANNEL WORKER, CHANNEL WORKER-C Referring Provider Active Start: November 14, 2024 [...] End: January 16, 2025 Cathie De Jesus CHANNEL WORKER, CHANNEL WORKER-C Attending physician Active Start: January 16, 2025 End: January 16, 2025 Cathie De Jesus CHANNEL WORKER, CHANNEL WORKER-C Referring Provider Active Start: January 16, 2025 End: January 16, 2025 Team Status: Inactive Member Role/Relationship Status Dates Dr. Naomi Whyte DO Primary care physician Active Start: January 19, 2025 End: January 19, 2025 Cathie De Jesus CHANNEL WORKER, CHANNEL WORKER-C Attending physician Active Start: January 19, 2025 End: January 19, 2025 Cathie De Jesus NP, CHANNEL WORKER-C Referring Provider Active Start: January 19, 2025 End: January 19, 2025 Team Status: Inactive Member Role/Relationship Status Dates Dr. Naomi Whyte DO Primary care physician Active Start: January 20, 2025 End: January 20, 2025 Dr. Naomi Whyte DO Referring Provider Active St art: January 20, 2025 End: January 20, 2025 Cathie De Jesus NP, CHANNEL WORKER-C Attending physician Active Start: January 20, 2025 End: January 20, 2025 Team Status: Active Member Role/Relationship Status Dates Dr. Naomi Whyte DO Primary care physician Active Start: January 26, 2025 Cathie De Jesus NP, CHANNEL WORKER-C Attending physician Active Start: January 26, 2025 Cathie De Jesus NP, CHANNEL WORKER-C Referring Provider Active Start: January 26, 2025 [...] January 26, 2025 Cathie De Jesus NP, CHANNEL WORKER-C Attending physician Active Start: January 26, 2025 End: January 26, 2025 Cathie De Jesus NP, CHANNEL WORKER-C Referring Provider Active Start: January 26, 2025 End: January 26, 2025 Team Status: Active Member Role/Relationship Status Dates Dr. Naomi Whyte DO Primary care physician Active Start: February 03, 2025 Cathie De Jesus NP, CHANNEL WORKER-C Attending physician Active Start: February 03, 2025 Cathie De Jesus CHANNEL WORKER, CHANNEL WORKER-C Referring Provider Active Start: February 03, 2025 INFORMATION SOURCE (unrecogn ized section and content) DATE CREATED AUTHOR 02/15/2025 [facility] FOR RECORDS PERTAINING TO PATIENTS WHO [...] BE BASED ON THE PRIMARY CLINICAL RECORDS. [facility]. provides no warranty or guarantee of the accuracy or completeness of information in this document.
[2025-04-03 10:38] LABS: Troponin T High Sens 2 HR 91 ng/L (<=14)
[2025-04-03] MEDS: Budesonide Respules 0.5 MG/2 ML AMPUL.NEB. INHALATION ×2 (10:47→21:17)
[2025-04-03] MEDS: Albuterol 2.5 MG/3 ML VIAL.NEB. INHALATION ×2 (10:47→16:55)
--- NOTE | 2025-04-03 11:54 | CON.PCM.CA_ITS ---
Assessment & Plan Assessment/Plan (1) NSTEMI (non-ST elevated myocardial infarction): PLAN: ? At this point difficult to determine if this is type I versus type II NSTEMI. Patient has no history of CAD sounds like a SAW RUNNER possibly of the RCA ? For now we will repeat a third troponin if there is a significant increase then proceed with left heart catheterization/coronary angiogram. Patient is currently chest pain-free therefore if troponin is flat then will attempt medical management with addition of antianginal medications ? Discontinue Lovenox. If plans to proceed with heart catheterization will utilize heparin ? Further recommendations to follow (2) Chest pain in adult: PLAN: ? Plan as above await results of troponin and proceed with either medical management versus left heart relation/coronary angiogram ? Continue aspirin. Patient has had issues with statin tolerance (3) Atherosclerosis of coronary artery: QUALIFIERS: Coronary Disease-Associated Artery/Lesion type: [place] artery [place] vs. transplanted heart: [place] heart Associated angina: u nspecified whether angina present Qualified Code(s): I25.10 - Atherosclerotic heart disease of [place] coronary artery without angina pectoris PLAN: ? As noted above known history of CAD. Possible SAW RUNNER ? Plan as above await results of troponin (4) Tachyarrhythmia: PLAN: ? Sinus tachycardia noted on telemetry ? Will initiate patient on diltiazem to help with rate control. Likely would tolerate better than a beta-jose d with history of COPD (5) Mixed hyperlipidemia: PLAN: ? Review of charts indicate statin intolerance ? Recommend goal LDL less than 70. Consideration for starting on PCSK9 inhibitor as outpatient if unable to tolerate statins. Can utilize Zetia for now (6) Obesity (BMI 30-39.9): PLAN: ? BMI of 35.4. Long discussion about need for increased diet and exercise regimen. 150-180 minutes of moderate intensity exercise per week PLAN: Plan ? Cardiac troponin ordered. Further recommendations to follow. HPI Consult Data Date of Consult: 04/03/25 HPI Narrative Reason for Consultation: NSTEMI HPI Narrative: TARSHA GONZALEZ, is a 70 F with multiple comorbid conditions including but not limited to hypertension, hyperlipidemia, obesity, anxiety/depression, and COPD presented to the emergency department due to acute onset of nausea along with chest tightness. She reports that she was up early this morning and at approximately 4 AM she started feeling nauseous however denies any vomiting and developed a tightness across her chest. She reports that it lasted for 5 to 10 minutes and then she took a nitroglycerin from her and this resolved her pain. She reported continued nausea therefore did present to the ED for evaluation. She does note that prior to EMS arriving she became fairly lightheaded/dizzy and felt like she was about to pass out however denies loss of consciousness. In the ED initial troponin mildly elevated however repeat troponin did increase therefore cardiology consulted for help with management. Other than this patient does report a cough and wheezing with some mild shortness of breath over the past couple of days also she has noticed that her heart rate has been elevated. She reports that just with walking to the restroom her heart rate goes into the 140s. Denies any other concerning cardiovascular complaints or issues. She reports a follow-up visit with cardiology in April. She does report some anxiousness/concern regarding her health since she does have family members including her father as well as a sister with cardiovascular disease. [facility] Medical History Depression Anxiety Former smoker Asthma Glaucoma Macular degeneration of both eyes Social anxiety disorder Sense of smell altered Urinary tract infection with hematuria COVID-19 COPD (chronic obstructive pulmonary disease) TORREZ (dyspnea on exertion) PHILIP (obstructive sleep apnea) Nicotine dependence in remission Obesity Atherosclerotic heart disease of [place] coronary artery without angina pectoris Cardiac murmur, unspecified Chest pain, unspecified Hyperlipidemia Peripheral vascular disease Central sleep apnea UTI (urinary tract infection) Urinary frequency Home Medications ?Medication ?Instructions ?Recorded ?Last Taken ?Type clopidogrel 75 mg tablet 75 mg PO DAILY anti platelet 10/23/15 05/10/18 History spacer #1 ea 07/29/19 Unknown Rx Disability Placard #1 ea 01/04/21 Unknown Rx estradiol 0.025 mg/24 hr weekly 1 patch transdermal QW COMANCHE hormones 04/20/23 04/03/25 History transdermal patch albuterol sulfate 90 mcg/actuation 2 puff inhalation Q 4H PRN 09/10/24 Unknown Rx aerosol inhaler shortness of breath or wheez ing #8.5 grams latanoprost 0.005 % eye drops 1 drp ophthalmic (eye) Q HS eye 09/10/24 Unknown History health lorazepam 1 mg tablet 1 mg PO BID PRN anxiety 06/08/0104/03/25 History albuterol sulfate 2.5 mg/3 mL 2.5 mg (3 mL) inhalation Q4H PRN 11/06/24 Unknown Rx (0.083 %) solution for nebulization #120 vials fluvoxamine 100 mg tablet 100 mg PO QHS depression 02/03/25 20:00 History 100 mg guaifenesin 600 mg tablet, 1,200 mg (2 x 600 mg) PO BI D 10 02/05/25 Unknown Rx extended release 12 hr (Mucinex) days #40 tabs dupilumab 300 mg/2 mL subcutaneous 600 mg (4 mL) subcu t ONCE #4 mL 03/12/25 Unknown Rx pen injector ([employer]) fluticasone fur. 200 mcg-umeclid 1 inh inhalation RENNY Y #60 ea 03/12/25 Unknown Rx 62.5 mcg-vilant 25 mcg inhalat.powder (Trelegy Ellipta) ipratropium 0.5 mg-albuterol 3 mg 3 ml inhalation Q4H PRN PRN SOB 03/12/25 Unknown Rx (2.5 mg base)/3 mL nebulization &/OR WHEEZING #180 mL soln dupilumab 300 mg/2 mL subcutaneous 300 mg subcut Q2W 1 06/04/24 Unknown History pen injector (Dupixent) suvorexant 5 mg tablet (Belsomra) 5 mg PO QHS PRN 03/10 10/01 Unknown History Allergy/AdvReac Type Severity Reaction Status Date / Time codeine Allergy Itching Verified 04/03/25 05:42 morphine Allergy Itching Verified 04/03/25 05:42 doxycycline AdvReac Severe severe Verified 04/03/25 05:42 headaches and muscle spasms to the chest Family History Mother Cancer lung and cervical Father Emphysema Chronic Bronchitis, in 80s. Sister Diabetes CAD (coronary artery disease) Sister Heart disease Brother Respiratory abnormalities Colon cancer Surgical History History of cardiac catheterization H/O oophorectomy History of tonsillectomy H/O: hysterectomy S/P surgical manipulation of ankle joint Social History Smoking Status: Former smoker pack-years: 80 Tobacco: How many years used: 40 how long ago did patient quit smoking: about 8 years ago second hand exposure: No alcohol intake: never substance use type: does not use what type of physical activity do you participate in: none ROS ROS Narrative 12 systems reviewed and negative unless stated above Physical Exam Const alert and oriented x3 Orientation / Consciousness: awake HEENT normocephalic Eyes PERRL Neck full ROM and no carotid bruits Resp normal respiratory effort Resp Narrative: Decreased breath sounds. Unable to appreciate any significant wheezes, rales, or rhonchi Cardio Cardio Narrative: Tachycardic regular rate and regular rhythm. Not appreciate any significant murmurs, rubs, or gallops GI normal to inspection, nondistended, normoactive bowel sounds, soft to palpation and non-tender Extremity normal to inspection and no pedal edema Skin no rashes or lesions noted Neuro Neuro Narrative: Moves all extremities and sensation intact Psych Psych Narrative: Fairly anxious Charges/Coding Visit Charges Inpatient E&M: 30817 Init Hosp L3 Objective Data Vital Signs: Vital Signs Temp Pulse Resp BP Pulse Ox O2 Del Method 98.6 F 110 H 18 116/79 92 Room Air 04/03/25 10:17 04/03/25 11:27 04/03/25 11:27 04/03/25 10:17 04/03/25 11:27 04/03/25 11:27 Oxygen Delivery Method Room Air Weight: 200 lb Body Mass Index (BMI) 35.4 Intake & Output: Intake and Output for Last 24 Hours 04/01/25 04/02/25 04/03/25 23:59 23:59 23:59 Intake Total 1000 / 1000 Balance 1000 / 1000 Lab / Micro Data Attestation: I reviewed the patient's lab results. Lab results narrative: Labs reviewed and pertinent results discussed with the patient 04/03/25 05:53 04/03/25 05:53 Labs: Laboratory Results - last 24 hr 04/03/25 05:53: WBC 8.8, RBC 4.76, Hgb 13.8, Hct 40.9, MCV 85.9, MCH 29.0, MCHC 33.7, RDW Std Deviation 41.0, RDW Coeff of Grace 13.0, Plt Count 265, MPV 8.6, Immature Gran % (Auto) 0.300, Neut % (Auto) 86.5 H, Lymph % (Auto) 5.1 L, [place] % (Auto) 6.9, Eos % (Auto) 0.7, Baso % (Auto) 0.5, Absolute Neuts (auto) 7.7, A bsolute Lymphs (auto) 0.45 L, Nucleated RBC % 0, PT 13.7, INR 1.0, APTT 26.8, Sodium 139, Potassium 3.5, Chloride 106, Carbon Dioxide 20.0, Anion Gap 13, BUN 8, Creatinine 0.88, Estim Creat Clear Calc 64.23, Est GFR (MDRD) Non-Af 70, B UN/Creatinine Ratio 8.6 L, Glucose 129 H, Calcium 9.5, Total Bilirubin 0.45, AST 33 H, ALT 25, Alkaline Phosphatase 98, Troponin T High Sens 27 H D, NT pro BNP II 80, Total Protein 7.0, Albumin 4.4, Globulin 2.6, Albumin/Globulin Ratio 1.7, Lipase 17 04/03/25 08:00: Troponin T Hi Sens 2 Hr Cancelled 04/03/25 09:56: Troponin T Hi Sens 2 Hr 91 H* Rhythm Strip Rhythm Strip: Sinus Tach (Sinus tachycardia on telemetry otherwise no significant arrhythmias) Cardiology Labs/Tests 04/03/25 05:53: WBC 8.8, RBC 4.76, Hgb 13.8, Hct 40.9, MCV 85.9, MCH 29.0, MCHC 33.7, Plt Count 265, MPV 8.6, Immature Gran % (Auto) 0.300, Neut % (Auto) 86.5 H , Lymph % (Auto) 5.1 L, [place] % (Auto) 6.9, Eos % (Auto) 0.7, Baso % (Auto) 0.5, Absolute Neuts (auto) 7.7, Nucleated RBC % 0, PT 13.7, INR 1.0, APTT 26.8, Sodium 139, Potassium 3.5, Chloride 106, Carbon Dioxide 20.0, Anion Gap 13, BUN 8, Creatinine 0.88, Est GFR (MDRD) Non-Af 70, BUN/Creatinine Ratio 8.6 L, G lucose 129 H, Calcium 9.5, Total Bilirubin 0.45 Rhythm: EKG: ECHO: Stress Test: Cardiac Cath: PCI: CT Surgery: Holter monitor: EPS: PPM: CXR: Chest CT Scan: Radiography Diagnostic Testing: Radiology Impression Chest CTA 04/03/25 05:48 IMPRESSION: Slight superior mediastinal adenopathy. This finding should be re-evaluated with CT at 6 months from this examination. Reading Location: [facility] STEVEN Risk Score for UA/STEMI Assesmment (YES = 1) Risk Stratification Applicable: Yes Age > or = 65: Yes > or = 3 CAD risk factors (HTN, Hypercholesterolemia, Diabetes, family hx, current smoker): Yes Known CAD (Stenosis > or = 50%): Yes ASA used in past 7 days: No Severe angina (> or = 2 episodes in 24 hrs): No EKG ST change > or = 0.5mm: No Positive cardiac markers: Yes Score STEVEN Risk Score of mortality/ recurrent ischemic event over the next 14 days: 4 = 19.9% - Intermediate
[2025-04-03 12:28] LABS: Troponin T High Sensitivity 82 ng/L (<=14)
[2025-04-03] MEDS: Latanoprost 0.005% 1 Bottle 1 DRP OPHTHALMIC (20:59)
[2025-04-03] MEDS: MELATONIN 10 MG TABLET PO (23:47)
[2025-04-03] MEDS: hydrOXYzine PAM 25 MG Capsule PO (23:47)
[2025-04-04] VITALS (7 sets, daily range): BP systolic 99–141; BP diastolic 60–66; PULSE 65–92; RESP 18–24; TEMP 36.4–37.1; O2SAT 85–97
[2025-04-04 06:40] LABS: Hematocrit 35.7 % (37-47); Hemoglobin 12.6 g/dL (12.0-15.0); Immature Granulocytes Count 0.030 X10^3/uL (0.0-0.0); Mean Corp Hgb Conc 35.3 g/dL (32-36); Mean Corpuscular Volume 85.4 fL (81-99); Mean Platelet Vol. 9.0 fl (6.2-12.0); NRBC Flagged by Analyzer 0 % (0-5); Platelet Count 232 K/mm3 (150-450); RBC Distribution Width CV 13.5 % (11.6-14.6); RBC Distribution Width SD 42.5 fl (35.1-43.9); Red Blood Count 4.18 M/mm3 (4.2-5.4); White Blood Count 4.2 K/mm3 (4.4-11.0)
[2025-04-04 07:09] LABS: Anion Gap 13 (7-18); BUN 7 mg/dL (4-19); BUN/Creat Ratio 7.5 RATIO (10-20); Calcium,Total 8.9 mg/dL (7.6-11.0); Carbon Dioxide 18.8 mmol/L (20.0-29.0); Chloride 105 mmol/L (96-106); Estimated Creatinine Clearance 58.30 ml/min (50-250); Glucose 101 mg/dL (70-99); Potassium 3.4 mmol/L (3.5-5.1)
--- NOTE | 2025-04-04 09:24 | PCM.PN.HOSP ---
Reason for Visit Chief Complaint: chest pain Subjective Subjective Patient is a 70-year-old lady who was admitted with chest pain was found to have elevated troponin consistent with non-STEMI. Admitted to a monitored bed with consultation placed cardiology Objective Data Objective Data Vital Signs: Vital Signs Temp Pulse Resp BP Pulse Ox O2 Del Method O2 Flow Rate 97.6 F L 65 20 H 111/66 94 Nasal Cannula 2 04/04/25 05:15 04/04/25 05:15 04/04/25 05:15 04/04/25 05:15 04/04/25 07:02 04/04/25 07:02 04/04/25 07:02 Oxygen Flow Rate (L/min) 2 Oxygen Delivery Method Nasal Cannula Weight: 90.718 kg Body Mass Index (BMI) 35.4 Intake & Output: Intake and Output for Last 24 Hours 04/02/25 04/03/25 04/04/25 23:59 23:59 23:59 Intake Total 1690 / 2040 650 / 650 Balance 1690 / 2040 650 / 650 Lab / Micro Data 04/04/25 05:14 04/04/25 05:14 Labs: Laboratory Results - last 24 hr 04/03/25 09:56: Troponin T Hi Sens 2 Hr 91 H* 04/03/25 11:55: Troponin T High Sens 82 H* D 04/04/25 05:14: WBC 4.2 L, RBC 4.18 L, Hgb 12.6, Hct 35.7 L, MCV 85.4, MCH 30.1, MCHC 35.3, RDW Std Deviation 42.5, RDW Coeff of Grace 13.5, Plt Count 232, MPV 9.0, Immature Gran % (Auto) 0.700, Neut % (Auto) 62.1, Lymph % (Auto) 21.6, [place] % (Auto) 14.7 H, Eos % (Auto) 0.0, Baso % (Auto) 0.9, Absolute Neuts (auto) 2.6, Absolute Lymphs (auto) 0.91, Nucleated RBC % 0, Sodium 137, Potassium 3.4 L, Chloride 105, Carbon Dioxide 18.8 L, Anion Gap 13, BUN 7, Creatinine 0.96, Estim Creat Clear Calc 58.30, Est GFR (MDRD) Non-Af 63, BUN/Creatinine Ratio 7.5 L, Glucose 101 H, Calcium 8.9 Micro: Microbiology 04/03/25 19:30 Mucosa - Nasopharyngeal Respiratory Panel (PCR) - Final Rhythm Strip Rhythm Strip: Sinus Tach (Sinus tachycardia on telemetry otherwise no significant arrhythmias) Physical Exam Narrative GENERAL: cooperative HEENT: Atraumatic; normocephalic EYES; Anicteric, Normal Conjunctiva NECK; supple, normal thyroid, RESPIRATORY: Diminished to auscultation CARDIOVASCULAR: Regular S1 S2, GI: soft, normoactive bowel sounds, : No Renal angle tenderness; EXTREMITIES: No edema, no clubbing, MUSCULOSKELETAL: no muscle wasting NEURO: Awake; no lateralizing signs. SKIN: No Rash PSYCH; Flat affect Assessment & Plan Assessment/Plan (1) Chest pain on exertion: PLAN: Plan Patient is a 70-year-old lady who was admitted with chest pain was found to have elevated troponin consistent with non-STEMI. Admitted to a monitored bed with consultation placed cardiology 1. Acute non-STEMI ? Patient admitted to a monitored bed. Initial troponin was 027 repeat went up to 82. Patient started on treatment per protocol with statins, antiplatelet with aspirin as well as systemic anticoagulation with therapeutic Lovenox repeat limited echo ordered consultation placed to cardiology. Patient chest pain did resolve. Optimization of medical therapy advised by cardiology. 2. Acute hypoxia overlap syndrome?asthma/COPD ?Patient appears to have significant bronchospasm. Viral respiratory panel obtained on admission so far negative to date. Did continue patient bronchodilator treatment. Plan is for patient to be assessed for home oxygen prior to making any decision regarding discharge 3. Class II obesity with BMI of 35.4 ? Complicating care weight loss advised 4. Obstructive sleep apnea ? Consistent use of PAP therapy encouraged 5. Nonobstructive coronary artery disease ? Patient is on clopidogrel 6. Dyslipidemia ? Patient apparently did not tolerate statin therapy due to significant myopathy. Cardiology recommended Consideration for starting on PCSK9 inhibitor as outpatient utilization of Zetia for now 7. Depression with anxiety ? Patient is on fluvoxamine as well as lorazepam as needed 8. DVT prophylaxis ? On enoxaparin Charges/Coding Visit Charges Inpatient E&M: 19297 Subs Hosp L2
--- NOTE | 2025-04-04 09:26 | PN.CARD_ITS ---
Subjective Subjective Patient seen and examined she reports feeling significantly better no further episodes of chest pain. Does have significant wheezing this morning during my evaluation however she reports this is a chronic issue specifically in the mornings. She reports that the albuterol/breathing treatments have been causing a headache. Denies any other concerning cardiovascular complaints or issues. Long discussion with patient as well as her family members surrounding need for close follow-up with cardiology as outpatient. With any further chest pain consider proceeding with outpatient left heart catheterization. Also advised them to return to the ED with any further episodes. Objective Data Vital Signs: Vital Signs Temp Pulse Resp BP Pulse Ox O2 Del Method O2 Flow Rate 97.6 F L 65 20 H 111/66 94 Nasal Cannula 2 04/04/25 05:15 04/04/25 05:15 04/04/25 05:15 04/04/25 05:15 04/04/25 07:02 04/04/25 07:02 04/04/25 07:02 Oxygen Flow Rate (L/min) 2 Oxygen Delivery Method Nasal Cannula Weight: 200 lb Body Mass Index (BMI) 35.4 Intake & Output: Intake and Output for Last 24 Hours 04/02/25 04/03/25 04/04/25 23:59 23:59 23:59 Intake Total 1690 / 2040 650 / 650 Balance 1690 / 2040 650 / 650 Lab / Micro Data Attestation: I reviewed the patient's lab results. 04/04/25 05:14 04/04/25 05:14 Labs: Laboratory Results - last 24 hr 04/03/25 09:56: Troponin T Hi Sens 2 Hr 91 H* 04/03/25 11:55: Troponin T High Sens 82 H* D 04/04/25 05:14: WBC 4.2 L, RBC 4.18 L, Hgb 12.6, Hct 35.7 L, MCV 85.4, MCH 30.1, MCHC 35.3, RDW Std Deviation 42.5, RDW Coeff of Grace 13.5, Plt Count 232, MPV 9.0, Immature Gran % (Auto) 0.700, Neut % (Auto) 62.1, Lymph % (Auto) 21.6, [place] % (Auto) 14.7 H, Eos % (Auto) 0.0, Baso % (Auto) 0.9, Absolute Neuts (auto) 2.6, Absolute Lymphs (auto) 0.91, Nucleated RBC % 0, Sodium 137, Potassium 3.4 L, Chloride 105, Carbon Dioxide 18.8 L, Anion Gap 13, BUN 7, Creatinine 0.96, Estim Creat Clear Calc 58.30, Est GFR (MDRD) Non-Af 63, BUN/Creatinine Ratio 7.5 L, G lucose 101 H, Calcium 8.9 Micro: Microbiology 04/03/25 19:30 Mucosa - Nasopharyngeal Respiratory Panel (PCR) - Final Rhythm Strip Rhythm Strip: Sinus Rhythm (Mostly normal sinus rhythm. No further significant episodes of sinus tachycardia appreciated) Cardiology Labs/Tests 04/04/25 05:14: WBC 4.2 L, RBC 4.18 L, Hgb 12.6, Hct 35.7 L, MCV 85.4, MCH 30.1, MCHC 35.3, Plt Count 232, MPV 9.0, Immature Gran % (Auto) 0.700, Neut % (Auto) 62.1, Lymph % (Auto) 21.6, [place] % (Auto) 14.7 H, Eos % (Auto) 0.0, Baso % (Auto) 0.9, Absolute Neuts (auto) 2.6, Nucleated RBC % 0, Sodium 137, Potassium 3.4 L, Chloride 105, Carbon Dioxide 18.8 L, Anion Gap 13, BUN 7, Creatinine 0.96, Est GFR (MDRD) Non-Af 63, BUN/Creatinine Ratio 7.5 L, Glucose 101 H, Calcium 8.9 Rhythm: EKG: ECHO: Stress Test: Cardiac Cath: PCI: CT Surgery: Holter monitor: EPS: PPM: CXR: Chest CT Scan: Physical Exam Const alert Orientation / Consciousness: awake Resp normal respiratory effort Resp Narrative: Significant audible expiratory wheezing, no rales or rhonchi. Could possibly be upper airway issues since no significant wheezing appreciated during auscultation Cardio regular rate, regular rhythm, no murmurs, no rub and no gallops GI normal to inspection, nondistended, normoactive bowel sounds Extremity normal to inspection and no clubbing, cyanosis or edema Neuro Neuro Narrative: Moves all extremities Psych Psych Narrative: Normal mood and affect Assessment & Plan Assessment/Plan (1) NSTEMI (non-ST elevated myocardial infarction): PLAN: ? Still unsure if type I versus type II NSTEMI. Troponins further evaluated and overall flat no significant trend concerning for ACS ? Chest pain currently resolved ? At this point patient okay for discharge from cardiology standpoint. Advised patient to follow-up in office with the cardiology team as soon as possible. If any further episodes of chest pain occur return to the ED for further evaluation ? Cardiology will drop to standby. Please call with questions. (2) Chest pain in adult: PLAN: ? Currently resolved. Recommend continuation of current medications including diltiazem at discharge ? Recommend discharge home with as needed sublingual nitroglycerin. (3) Atherosclerosis of coronary artery: QUALIFIERS: Coronary Disease-Associated Artery/Lesion type: [place] artery [place] vs. transplanted heart: [place] heart Associated angina: u nspecified whether angina present Qualified Code(s): I25.10 - Atherosclerotic heart disease of [place] coronary artery without angina pectoris PLAN: ? 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 Continue current medications including aspirin, Plavix, and would recommend patient be on a statin however records indicate possible intolerance. ? Recommend consideration for PCSK9 inhibitor at discharge. At least should be started on Zetia. (4) Tachyarrhythmia: PLAN: ? Significant improvement and resolution of tachyarrhythmia with diltiazem ? Recommend discharge home with diltiazem 180 mg p.o. daily. (5) Mixed hyperlipidemia: PLAN: ? Review of charts indicate statin intolerance ? Recommend goal LDL less than 70. Consideration for starting on PCSK9 inhibitor as outpatient if unable to tolerate statins. Can utilize Zetia for now (6) Obesity (BMI 30-39.9): PLAN: ? BMI of 35.4. Long discussion about need for increased diet and exercise regimen. 150-180 minutes of moderate intensity exercise per week PLAN: Plan ? Okay for discharge from cardiology standpoint. Discharge home with current medications including diltiazem. Recommend addition of as needed sublingual nitroglycerin ? Encourage quick follow-up in office with cardiology after discharge. Any further episodes of chest pain or significant shortness of breath advised the patient to return to the ED for evaluation. Charges/Coding Visit Charges Inpatient E&M: 30451 Subs Hosp L2
--- NOTE | 2025-04-04 09:50 | CASEMGMT ---
FABBY CM in to discuss DU form with patient. RN CM explained DU form, patient voiced understanding. Pt signed form and filed in chart. Pt provided with a copy of signed DU form. Patient had no further questions or concerns at this time.
--- NOTE | 2025-04-04 10:41 | CASEMGMT ---
RN CM into pt room, Pt sitting up in bed. Pt Daugther sitting at bedside. RN CM discussed need for O2 at DC. RN CM provided verbal list of DME providers in the area. Pt chose [facility] as provider of choice.
[2025-04-04] MEDS: Budesonide Respules 0.5 MG/2 ML AMPUL.NEB. INHALATION (10:51)
--- NOTE | 2025-04-04 10:51 | PCM.DC.SUM ---
Providers Date of Admission: 04/03/25 Date of Discharge: 04/04/25 Primary Care Physician: Dr. Naomi Whyte, DO Consultations 04/03/25 10:56 Consult: Cardiology Routine Consulting Provider: Andrey Davies Reason for Consult: nonstemi EMERGENT Consult: No MD Notified: Yes Date Notified: 04/03/25 Time Notified: 10:56 Method of Notification: Verbal Reason For Visit: CHEST PAIN Diagnosis Discharge Diagnosis (1) Chest pain on exertion: Status: Acute Code(s): R07.9 - Chest pain, unspecified (2) Atherosclerosis of coronary artery: Status: Acute Code(s): I25.10 - Atherosclerotic heart disease of [place] coronary artery without angina pectoris Qualifiers: Associated angina: unspecified whether angina present Coronary Disease-Associated Artery/Lesion type: [place] artery [place] vs. transplanted heart: [place] heart Qualified Code(s): I25.10 - Atherosclerotic heart disease of [place] coronary artery without angina pectoris (3) NSTEMI (non-ST elevated myocardial infarction): Status: Acute Code(s): I21.4 - Non-ST elevation (NSTEMI) myocardial infarction (4) Chest pain in adult: Status: Acute Code(s): R07.9 - Chest pain, unspecified (5) Tachyarrhythmia: Status: Acute Code(s): R00.0 - Tachycardia, unspecified (6) Mixed hyperlipidemia: Status: Acute Code(s): E78.2 - Mixed hyperlipidemia (7) Obesity (BMI 30-39.9): Status: Acute Code(s): E66.9 - Obesity, unspecified Plan Patient is a 70-year-old lady who was admitted with chest pain was found to have elevated troponin consistent with non-STEMI. Admitted to a monitored bed with consultation placed cardiology 1. Acute non-STEMI type II ? Patient admitted to a monitored bed. Initial troponin was 027 repeat went up to 82. Patient started on treatment per protocol with statins, antiplatelet with aspirin as well as systemic anticoagulation with therapeutic Lovenox repeat limited echo ordered consultation placed to cardiology. Patient chest pain did resolve. Optimization of medical therapy advised by cardiology. 2. Acute hypoxia overlap syndrome?asthma/COPD ?Patient appears to have significant bronchospasm. Viral respiratory panel obtained on admission so far negative to date. Did continue patient bronchodilator treatment. Plan is for patient to be assessed for home oxygen prior to making any decision regarding discharge ? I have reviewed the oxygen testing, and this patient qualifies for the home equipment and portability. The patient is mobile in the home and the community. 3. Class II obesity with BMI of 35.4 ? Complicating care weight loss advised 4. Obstructive sleep apnea ? Consistent use of PAP therapy encouraged 5. Nonobstructive coronary artery disease ? Patient is on clopidogrel 6. Dyslipidemia ? Patient apparently did not tolerate statin therapy due to significant myopathy. Cardiology recommended Consideration for starting on PCSK9 inhibitor as outpatient utilization of Zetia for now 7. Depression with anxiety ? Patient is on fluvoxamine as well as lorazepam as needed 8. Tachyarrhythmia ? Patient was placed on diltiazem 180 mg p.o. daily per recommendations from cardiology. Prescription written on discharge 9. DVT prophylaxis ? On enoxaparin Medications at Discharge Home Medications clopidogrel 75 mg tablet 75 mg PO DAILY anti platelet 10/23/15 spacer #1 ea 07/29/19 Disability Placard #1 ea 01/04/21 estradiol 0.025 mg/24 hr weekly transdermal patch 1 patch transdermal QWEEK hormones 04/20/23 albuterol sulfate 90 mcg/actuation aerosol inhaler 2 puff inhalation Q4H PRN shortness of breath or wheezing #8.5 grams 09/10/24 latanoprost 0.005 % eye drops 1 drp ophthalmic (eye) QHS eye health 09/10/24 lorazepam 1 mg tablet 1 mg PO BID PRN anxiety 09/10/24 albuterol sulfate 2.5 mg/3 mL (0.083 %) solution for nebulization 2.5 mg (3 mL) inhalation Q4H PRN #120 vials 11/06/24 fluvoxamine 100 mg tablet 100 mg PO QHS depression 02/05/25 guaifenesin 600 mg tablet, extended release 12 hr (Mucinex) 1,200 mg (2 x 600 mg) PO BID 10 days #40 tabs 02/05/25 dupilumab 300 mg/2 mL subcutaneous pen injector (Dupixent) 600 mg (4 mL) subcut ONCE #4 mL 03/12/25 fluticasone fur. 200 mcg-umeclid 62.5 mcg-vilant 25 mcg inhalat.powder (Trelegy Ellipta) 1 inh inhalation DAILY #60 ea 03/12/25 ipratropium 0.5 mg-albuterol 3 mg (2.5 mg base)/3 mL nebulization soln 3 ml inhalation Q4H PRN PRN SOB &/OR WHEEZING #180 mL 03/12/25 dupilumab 300 mg/2 mL subcutaneous pen injector (Dupixent) 300 mg subcut Q2W 04/03/25 suvorexant 5 mg tablet (Belsomra) 5 mg PO QHS PRN 04/03/25 aspirin 81 mg chewable tablet 81 mg PO BREAKFAST #90 tabs 04/04/25 diltiazem HCl 180 mg capsule,extended release 24 hr 180 mg PO DAILY #90 caps 04/04/25 ezetimibe 10 mg tablet 10 mg PO DAILY #90 tabs 04/04/25 Hospital Course Summary of Care Provided Minutes Spent on Discharge: 38 Physical Exam Narrative GENERAL: cooperative HEENT: Atraumatic; normocephalic EYES; Anicteric, Normal Conjunctiva NECK; supple, normal thyroid, RESPIRATORY: Diminished to auscultation CARDIOVASCULAR: Regular S1 S2, GI: soft, normoactive bowel sounds, : No Renal angle tenderness; EXTREMITIES: No edema, no clubbing, MUSCULOSKELETAL: no muscle wasting NEURO: Awake; no lateralizing signs. SKIN: No Rash PSYCH; Flat affect Weight / BMI Weight Weight: 90.718 kg Body Mass Index (BMI) 35.4 ABG / Lab / Microbiology Data 04/04/25 05:14 04/04/25 05:14 Laboratory: Laboratory Results - last 24 hr 04/03/25 11:55: Troponin T High Sens 82 H* D 04/04/25 05:14: WBC 4.2 L, RBC 4.18 L, Hgb 12.6, Hct 35.7 L, MCV 85.4, MCH 30.1, MCHC 35.3, RDW Std Deviation 42.5, RDW Coeff of [place] 13.5, Plt Count 232, MPV 9.0, Immature Gran % (Auto) 0.700, Neut % (Auto) 62.1, Lymph % (Auto) 21.6, [place] % (Auto) 14.7 H, Eos % (Auto) 0.0, Baso % (Auto) 0.9, Absolute Neuts (auto) 2.6, Absolute Lymphs (auto) 0.91, Nucleated RBC % 0, Sodium 137, Potassium 3.4 L, Chloride 105, Carbon Dioxide 18.8 L, Anion Gap 13, BUN 7, Creatinine 0.96, Estim Creat Clear Calc 58.30, Est GFR (MDRD) Non-Af 63, BUN/Creatinine Ratio 7.5 L, Glucose 101 H, Calcium 8.9 Microbiology: Microbiology 04/03/25 19:30 Mucosa - Nasopharyngeal Respiratory Panel (PCR) - Final D/C Instructions DC O2, CPAP, BIPAP Needs Home O2 Discharge instructions: Yes Type of respiratory needs?: Oxygen Oxygen frequency: Continuous Continuous oxygen liters per minute: 2 DC home with Oxygen: Yes Home O2 MD Review: I have reviewed the oxygen testing, and the patient qualifies for home oxygen equipment and portability. The patient is mobile in the home and the community. Patient's Goals Of Care - F/U Goals Reviewed Goals of care reviewed with patient: Yes - No change Meaningful Use Info Meaningful Use Meaningful Use Diagnoses (Choose all that apply): None applicable Discharge Plan Admission Admit Date/Time: 04/03/25 09:23 Attending Provider: Vaibhav Cardenas Primary Care Provider: Naomi Whyte Consulting Providers: Andrey Davies; Savanah Rice Discharge Orders/Prescriptions Prescriptions: New diltiazem HCl 180 mg Capsule,Extended Release 24hr 180 mg PO DAILY Qty: 90 0RF aspirin 81 mg Tablet,Chewable 81 mg PO BREAKFAST Qty: 90 0RF ezetimibe 10 mg Tablet 10 mg PO DAILY Qty: 90 0RF Continued (DME) spacer See Rx Instructions .Route .MEDSUPPLY Qty: 1 0RF Rx Instructions: As directed (DME) Disability Placard See Rx Instructions .Route .MEDSUPPLY Qty: 1 0RF Rx Instructions: expires 12/10/2025 estradiol 0.025 mg/24 hr patch weekly 1 patch transdermal QWEEK Patient Comments: applied on Sundays lorazepam 1 mg tablet 1 mg PO BID PRN (Reason: anxiety) latanoprost 0.005 % drops 1 drp ophthalmic (eye) QHS albuterol sulfate 90 mcg/actuation HFA aerosol inhaler 2 puff inhalation Q4H PRN (Reason: shortness of breath or wheezing) Qty: 8.5 6RF Rx Instructions: administer with spacer ipratropium-albuterol 0.5 mg-3 mg(2.5 mg base)/3 mL solution for nebulization 3 ml inhalation Q4H PRN PRN (Reason: SOB &/OR WHEEZING) Qty: 180 6RF Dupixent Pen 300 mg/2 mL pen injector 600 mg subcut ONCE Qty: 4 0RF Patient Comments: will start at infusion center has not started yet Rx Instructions: as a single dose Trelegy Ellipta 200-62.5-25 mcg blister with device 1 inh inhalation DAILY Qty: 60 11RF clopidogrel 75 MG tablet 75 mg PO DAILY fluvoxamine 100 mg tablet 100 mg PO QHS Patient Comments: pt takes in evening guaifenesin [Mucinex] 600 mg tablet extended release 12hr 1,200 mg PO BID 10 Days Qty: 40 0RF Belsomra 5 mg tablet 5 mg PO QHS PRN Dupixent Pen 300 mg/2 mL pen injector 300 mg subcut Q2W Rx Instructions: has not started yet albuterol sulfate 2.5 mg /3 mL (0.083 %) solution for nebulization 2.5 mg INHALATION Q4H PRN Qty: 120 6RF Rx Instructions: Use q4 hours and PRN for wheezing Referrals / Follow Up: Naomi Whyte DO [Primary Care Provider, Family Practice] Charges/Coding Visit Charges Inpatient E&M: 15478 Disch Hosp >30min
--- NOTE | 2025-04-04 11:22 | CASEMGMT ---
Addendum entered by Keshia Woodall 04/04/25 11:48: Fax[place] and paperwork to [facility] [place] Original Note: RN CM Notified by floor nurse pt qualified for O2. Obtained script, sent script, face sheet, DC summary and O2 test to [facility] [place] via [facility]. Notified RN to deliver O2 tank from stock to pt room.
== END 2025-04-04 17:33 | disposition home or self-care (01) ==
LOC: ED 09:33 → PCU 09:46
PROVIDERS: Internal Medicine; Admitting Provider Student in an Organized Health Care Education/Training Program; Emergency Provider Specialist/Technologist Athletic Trainer; PCP Family Medicine; Visit Provider Internal Medicine
DX: I21.4 Non-ST elevation (NSTEMI) myocardial infarction (principal); J44.89 Other specified chronic obstructive pulmonary disease; Z87.891 Personal history of nicotine dependence; Z79.51 Long term (current) use of inhaled steroids; Z82.49 Family history of ischemic heart disease and other diseases of the circulatory system; Z68.35 Body mass index [BMI] 35.0-35.9, adult; E78.2 Mixed hyperlipidemia; I25.10 Atherosclerotic heart disease of native coronary artery without angina pectoris; E66.812 Obesity, class 2; I25.2 Old myocardial infarction; Z79.899 Other long term (current) drug therapy; Z79.02 Long term (current) use of antithrombotics/antiplatelets; G47.33 Obstructive sleep apnea (adult) (pediatric); F41.8 Other specified anxiety disorders; R00.0 Tachycardia, unspecified; R06.02 Shortness of breath
CPT/HCPCS: 36415; 71275; 80048; 80053; 83690; 83880; 84484; 85025; 85610; 85730; 87633; 93005; 94640; 96360; 96361; 99221; 99285; Q9967; A4216; G0378; J2785